=== PATIENT | female | born 1950 | race Two or more races ===

== ENCOUNTER 2017-06-07 10:51 | Inpatient (IN) | payer OTHER, MEDICAID ==
[~2017-06-07] VITALS: Ht 152.4 cm; Wt 65.0 kg
[~2017-06-07 10:51] MED LIST: ASPI81CH43 PO; ATOR40TA52 PO; CAPT25TA5 PO; CETI-41 PO; CITA20TA3 PO; FENO1TAB42 OR; GABA100C9 PO; LEV50T PO; LEVO-28 PO; METF-371 PO; PANT1INJ3 PO; SITA50TA PO; TRAM50TA2 PO
[2017-06-07] MEDS ORDERED: SODIUM CHLORIDE 0.9% 1,000 ML IV ONE (11:15)
[2017-06-07 11:36] LABS: Basophils # (auto) 0.1 uL; Eosinophils # (auto) 0.1 uL; Eosinophils % (auto) 0.7 % (0.0-7.0); Hematocrit 42.6 % (36.0-46.0); Lymphocytes # (auto) 2.4 uL; Lymphocytes % (auto) 31.2 % (10.0-50.0); Mean Corpuscular Hemoglobin 31.5 pg (28.0-32.0); Mean Corpuscular Hgb Conc. 32.9 g/dL (32.0-36.0); Mean Corpuscular Volume 95.7 fL (80.0-100.0); Monocytes # (auto) 0.7 uL; Monocytes % (auto) 9.7 % (0.0-12.0); Neutrophils # (auto) 4.3 uL; Neutrophils % (auto) 57.4 % (37.0-80.0); Nucleated Red Blood Cells % 0.1 %; Platelet Count (auto) 312 10^3/uL (140-450); Red Blood Cells 4.45 10^6/uL (4.0-5.20); Red Cell Distribution Width 14.6 % (11.8-14.3); White Blood Cell 7.6 10^3/uL (4.4-10.8)
[2017-06-07] MEDS ORDERED: LABETALOL HCL 5 MG/ML ML 20ML VIAL IV ONE (12:00)
[2017-06-07 12:01] LABS: Albumin 3.7 g/dL (3.4-5.0); BUN/Creatinine Ratio 18.8; Bilirubin, Total 0.6 mg/dL (0.2-1.0); Calcium 10.8 mg/dL (8.5-10.1); Potassium 3.4 mmol/L (3.5-5.1); Total Protein 7.6 g/dL (6.4-8.2)
[2017-06-07 12:14] LABS: INR 1.01 (0.9-1.15); Partial Thromboplastin Time 23.1 sec (22.64-33.71)
[2017-06-07] MEDS ORDERED: DEXTROSE (50%) 50ML SYRG IV PRN (13:15)
[2017-06-07] MEDS ORDERED: NITROGLYCERIN 0.4 MG SL TAB SL PRN (13:15)
[2017-06-07] MEDS ORDERED: ACETAMINOPHEN 500 MG TAB PO PRN (13:15)
[2017-06-07] MEDS ORDERED: PROMETHAZINE HCL 25 MG/ML 1ML IV PRN (13:15)
[2017-06-07] MEDS ORDERED: LABETALOL HCL 5 MG/ML ML 20ML VIAL IV PRN (13:15)
[2017-06-07] MEDS ORDERED: TEMAZEPAM 15 MG CAP PO PRN (13:15)
[2017-06-07] MEDS ORDERED: MORPHINE SULFATE 4 MG/ML SYR/VIAL IV PRN (13:15)
[2017-06-07] MEDS ORDERED: LACTULOSE 20Gm/30ML SOLN PO PRN (13:15)
[2017-06-07] MEDS ORDERED: LORazepam 0.5 MG TAB PO PRN (13:15)
[2017-06-07] MEDS ORDERED: ENOXAPARIN SOD 40 MG/0.4 ML SYRINGE SC ONE (13:30)
[2017-06-07] MEDS ORDERED: LEVOTHYROXINE SODIUM 50 MCG TAB PO ONE (13:30)
[2017-06-07] MEDS ORDERED: CAPTOPRIL 25 MG TAB PO ONE (13:30)
[2017-06-07] MEDS ORDERED: ASPirin 81 mg TAB PO ONE (13:30)
[2017-06-07] MEDS ORDERED: CITALOPRAM HYDROBR 20 MG TAB PO ONE (13:30)
[2017-06-07] MEDS: GABAPENTIN 100 MG CAP PO SCH ×2 (13:59→21:21)
[2017-06-07 16:50] LABS: Alcohol, Urine < 3.0 mg/dL (0-5); Amphetamine Screen, Urine NEGATIVE (NEGATIVE); Barbiturate Scree,Urine NEGATIVE (NEGATIVE); Benzodiazephine Screen, Urine NEGATIVE (NEGATIVE); Cannabinoid Screen, Urine NEGATIVE (NEGATIVE); Cocaine Screen, Urine NEGATIVE (NEGATIVE); Opiate Scree,Urine NEGATIVE (NEGATIVE); Phencyclidine Screen, Urine NEGATIVE (NEGATIVE)
[2017-06-07] MEDS: InsuLIN REG 1unit/0.01ml Soln (100units/ml) SC SCH ×2 (17:00→21:46)
[2017-06-07 17:02] LABS: Urine Bacteria FEW /hpf (None Seen); Urine Blood Negative /uL (Negative); Urine Mucus FEW (None Seen); Urine Specific Gravity 1.019 (1.001-1.035); Urine WBC 3 /hpf (0 - 5)
[2017-06-07] MEDS: ACCU-CHEK COMFORT CURVE STRIP VI SCH ×2 (17:14→21:21)
[2017-06-07] MEDS ORDERED: POTASSIUM CHL 20 Meq TABLET PO ONE (18:45)
[2017-06-07] MEDS ORDERED: LORazepam 2MG/ML-1ML VIAL IV PRN (19:00)
[2017-06-07 20:15] LABS: Folate (Folic Acid) 22.14 ng/mL (5.38-24)
[2017-06-07] MEDS: CAPTOPRIL 25 MG TAB PO SCH (21:20)
[2017-06-07] MEDS: ATORVASTATIN 20 MG TAB PO SCH (21:21)
[2017-06-07 21:54] VITALS: BP 124/81
[2017-06-08 05:25] VITALS: BP 121/85
[2017-06-08] MEDS: LEVOTHYROXINE SODIUM 25 MCG TAB PO SCH (05:49)
[2017-06-08] MEDS: ACCU-CHEK COMFORT CURVE STRIP VI SCH ×4 (05:49→21:57)
[2017-06-08] MEDS: GABAPENTIN 100 MG CAP PO SCH ×3 (05:49→21:56)
[2017-06-08] MEDS: InsuLIN REG 1unit/0.01ml Soln (100units/ml) SC SCH ×4 (06:30→21:56)
[2017-06-08 07:20] LABS: Cholesterol 246 mg/dL (< 200); HDL Cholesterol 46 mg/dL (40-59); LDL Cholesterol 161 mg/dL (< 100); Triglycerides 153 mg/dL (< 150)
[2017-06-08] MEDS: MORPHINE SULFATE 4 MG/ML SYR/VIAL IV PRN ×2 (07:40→12:10)
[2017-06-08 09:00] VITALS: BP 134/74
[2017-06-08] MEDS: traMADol HCL 50 MG TAB PO PRN ×2 (09:53→16:22)
[2017-06-08] MEDS: ASPirin 81 mg TAB PO SCH (09:53)
[2017-06-08] MEDS: ENOXAPARIN SOD 40 MG/0.4 ML SYRINGE SC SCH (09:53)
[2017-06-08] MEDS: CITALOPRAM HYDROBR 20 MG TAB PO SCH (09:53)
[2017-06-08] MEDS: TRICOR OR SCH (10:00)
[2017-06-08 13:00] VITALS: BP 130/60
[2017-06-08] MEDS: CLOPIDOGREL BISULFATE 75 MG TAB PO SCH (16:18)
[2017-06-08] MEDS: CAPTOPRIL 25 MG TAB PO SCH ×2 (16:20→21:55)
[2017-06-08 17:09] VITALS: BP 135/66
[2017-06-08 20:00] VITALS: BP 130/64
[2017-06-08] MEDS: ATORVASTATIN 20 MG TAB PO SCH (21:56)
[2017-06-08 22:00] VITALS: BP 130/64
[2017-06-09 05:34] VITALS: BP 127/55
[2017-06-09] MEDS: LEVOTHYROXINE SODIUM 25 MCG TAB PO SCH (06:10)
[2017-06-09] MEDS: GABAPENTIN 100 MG CAP PO SCH ×2 (06:11→14:12)
[2017-06-09] MEDS: ACCU-CHEK COMFORT CURVE STRIP VI SCH ×2 (06:12→11:34)
[2017-06-09] MEDS: InsuLIN REG 1unit/0.01ml Soln (100units/ml) SC SCH ×2 (06:25→12:06)
[2017-06-09 08:20] VITALS: BP 145/78
[2017-06-09] MEDS: TRICOR OR SCH (10:00)
[2017-06-09] MEDS: CLOPIDOGREL BISULFATE 75 MG TAB PO SCH (10:11)
[2017-06-09] MEDS: ENOXAPARIN SOD 40 MG/0.4 ML SYRINGE SC SCH (10:11)
[2017-06-09] MEDS: ASPirin 81 mg TAB PO SCH (10:11)
[2017-06-09] MEDS: CITALOPRAM HYDROBR 20 MG TAB PO SCH (10:11)
[2017-06-09] MEDS: CAPTOPRIL 25 MG TAB PO SCH (10:12)
[2017-06-09 11:58] VITALS: BP 142/93
[2017-06-09 16:29] VITALS: BP 186/70
== END 2017-06-09 17:27 | disposition home health service (06) | DRG 64 ==
LOC: ER 10:51 → TELE 10:52 → TELE-EAST 18:38
PROVIDERS: ADMIT Internal Medicine; ATTEND Internal Medicine Pulmonary Disease
DX: I63.9 Cerebral infarction, unspecified (principal); G93.41 Metabolic encephalopathy; I69.351 Hemiplegia and hemiparesis following cerebral infarction affecting right dominant side; I11.0 Hypertensive heart disease with heart failure; I50.9 Heart failure, unspecified; G45.9 Transient cerebral ischemic attack, unspecified; I16.1 Hypertensive emergency; E87.6 Hypokalemia; E03.9 Hypothyroidism, unspecified; E11.9 Type 2 diabetes mellitus without complications; E78.5 Hyperlipidemia, unspecified; I25.10 Atherosclerotic heart disease of native coronary artery without angina pectoris; I67.2 Cerebral atherosclerosis; I08.0 Rheumatic disorders of both mitral and aortic valves; R32 Unspecified urinary incontinence; Z79.82 Long term (current) use of aspirin; Z79.899 Other long term (current) drug therapy; Z82.49 Family history of ischemic heart disease and other diseases of the circulatory system; Z95.1 Presence of aortocoronary bypass graft; Z90.49 Acquired absence of other specified parts of digestive tract; Z80.9 Family history of malignant neoplasm, unspecified
CPT/HCPCS: 36415; 70450; 70551; 71045; 80053; 80061; 80307; 81001; 82550; 82607; 82746; 82962; 83036; 84443; 84484; 85025; 85610; 85652; 85730; 93306; 93886; 95819; 96361; 96374; 97163; J1815

== ENCOUNTER 2020-08-27 10:38 | Emergency (ER) | payer OTHER, MEDICAID ==
[~2020-08-27] VITALS: Ht 162.6 cm; Wt 77.1 kg
[~2020-08-27 10:38] MED LIST changes: +FENO145T27 OR; -FENO1TAB42 OR
[2020-08-27 11:12] LABS: Basophils # (auto) 0 10 ^3/uL (0-0.2); Basophils % (auto) 0.5 % (0.0-2.0); Eosinophils # (auto) 0.1 10 ^3/uL (0-0.8); Eosinophils % (auto) 1.4 % (0.0-7.0); Hematocrit 43.3 % (36.0-46.0); Hemoglobin 14.5 g/dL (12.2-16.2); Lymphocytes # (auto) 2.1 10 ^3/uL (0.4-5.4); Lymphocytes % (auto) 35.8 % (10.0-50.0); Mean Corpuscular Hemoglobin 33.5 pg (28.0-32.0); Mean Corpuscular Hgb Conc. 33.6 g/dL (32.0-36.0); Mean Corpuscular Volume 99.7 fL (80.0-100.0); Monocytes # (auto) 0.6 10 ^3/uL (0-1.3); Monocytes % (auto) 9.9 % (0.0-12.0); Neutrophils # (auto) 3.1 10 ^3/uL (1.6-8.6); Neutrophils % (auto) 52.4 % (37.0-80.0); Platelet Count (auto) 254 10^3/uL (140-450); Red Blood Cells 4.35 10^6/uL (4.0-5.20); Red Cell Distribution Width 13.7 % (11.8-14.3)
[2020-08-27 11:30] LABS: Alanine Aminotransferase 70 U/L (13-56); Albumin 3.3 g/dL (3.4-5.0); Anion Gap 5 (5-15); Blood Urea Nitrogen 28 mg/dL (7-18); Calcium 10.1 mg/dL (8.5-10.1); Carbon Dioxide 28 mmol/L (21-32); Chloride 105 mmol/L (98-107); Glucose 250 mg/dL (74-106); Magnesium 1.8 mg/dL (1.6-2.6); Potassium 4.2 mmol/L (3.5-5.1); Sodium 138 mmol/L (136-145)
[2020-08-27 11:36] LABS: Alkaline Phosphatase 71 U/L (45-117); Aspartate Aminotransferase 61 U/L (15-37); BUN/Creatinine Ratio 30.4; Bilirubin, Total 0.3 mg/dL (0.2-1.0); GFR African American 78 mL/min; GFR Non-African American 64 mL/min; Total Protein 6.5 g/dL (6.4-8.2)
[2020-08-27 13:16] LABS: Urine Blood 2+ /uL (Negative); Urine Mucus FEW (None Seen); Urine Specific Gravity 1.017 (1.001-1.035); Urine WBC 3370 /hpf (0 - 5); Urine WBC Clumps PRESENT /hpf (None Seen)
[2020-08-27 13:18] LABS: Urine Bacteria FEW /hpf (None Seen); Urine Budding Yeast Few /hpf (None Seen)
[2020-08-27] MEDS ORDERED: cefTRIAXone 1GM/50ML D5W 50 ML IV ONE (14:00)
[2020-08-27 14:32] VITALS: BP 145/82
== END 2020-08-27 16:12 | disposition home or self-care (01) ==
LOC: EDBD 10:38 → ER 10:38
DX: R53.1 Weakness (principal); N39.0 Urinary tract infection, site not specified; E46 Unspecified protein-calorie malnutrition; Z68.29 Body mass index [BMI] 29.0-29.9, adult; I10 Essential (primary) hypertension; I25.10 Atherosclerotic heart disease of native coronary artery without angina pectoris; E11.9 Type 2 diabetes mellitus without complications; E78.5 Hyperlipidemia, unspecified; Z86.73 Personal history of transient ischemic attack (TIA), and cerebral infarction without residual deficits; Z90.49 Acquired absence of other specified parts of digestive tract; Z95.1 Presence of aortocoronary bypass graft; Z79.82 Long term (current) use of aspirin; Z79.2 Long term (current) use of antibiotics; Z79.899 Other long term (current) drug therapy
CPT/HCPCS: 36415; 51701; 71045; 80053; 81001; 82962; 83735; 84484; 85025; 87086; 87088; 87186; 96365; 99285; J0696

== ENCOUNTER 2021-05-23 09:38 | Inpatient (IN) | payer OTHER, MEDICAID ==
[~2021-05-23] VITALS: Ht 152.4 cm; Wt 70.6 kg
[2021-05-23] MEDS ORDERED: MORPHINE SULFATE INJECTION 2 MG/ML SYRG IV ONE ×2 (11:30→14:00)
[2021-05-23] MEDS ORDERED: ONDANSETRON HCL 4 MG/2 ML VIAL IV ONE ×2 (11:30→14:00)
[2021-05-23 15:27] LABS: Basophils # (auto) 0.1 10 ^3/uL (0-0.2); Eosinophils # (auto) 0.1 10 ^3/uL (0-0.8); Eosinophils % (auto) 0.8 % (0.0-7.0); Hematocrit 36.8 % (36.0-46.0); Hemoglobin 12.5 g/dL (12.2-16.2); Lymphocytes # (auto) 1.9 10 ^3/uL (0.4-5.4); Lymphocytes % (auto) 27.8 % (10.0-50.0); Mean Corpuscular Hemoglobin 33.1 pg (28.0-32.0); Mean Corpuscular Volume 97.2 fL (80.0-100.0); Monocytes # (auto) 0.7 10 ^3/uL (0-1.3); Monocytes % (auto) 10.8 % (0.0-12.0); Neutrophils # (auto) 4.1 10 ^3/uL (1.6-8.6); Neutrophils % (auto) 59.6 % (37.0-80.0); Nucleated Red Blood Cells % 0.1 %; Red Blood Cells 3.78 10^6/uL (4.0-5.20); Red Cell Distribution Width 14.1 % (11.8-14.3); White Blood Cell 6.9 10^3/uL (4.4-10.8)
[2021-05-23 15:33] LABS: Calcium 9.5 mg/dL (8.5-10.1); Potassium 3.9 mmol/L (3.5-5.1)
[2021-05-23 15:39] LABS: BUN/Creatinine Ratio 32.6; Bilirubin, Total 0.3 mg/dL (0.2-1.0); Total Protein 6.6 g/dL (6.4-8.2)
[2021-05-23 16:06] LABS: Urine Bacteria MANY /hpf (None Seen); Urine Blood TRACE /uL (Negative); Urine Hyaline Cast MOD /lpf (0 - 2); Urine Mucus MODERATE (None Seen); Urine WBC 407 /hpf (0 - 5)
[2021-05-23] MEDS ORDERED: NITROGLYCERIN 0.4 MG SL TAB SL PRN (17:30)
[2021-05-23] MEDS ORDERED: MORPHINE SULFATE INJECTION 2 MG/ML SYRG IV PRN (17:30)
[2021-05-23] MEDS ORDERED: cefTRIAXone 1GM/50ML D5W 50 ML IV ONE ×2 (17:30→17:31)
[2021-05-23] MEDS ORDERED: MULTIPLE VITAMINS W/ MINERALS TAB PO ONE (19:00)
[2021-05-23] MEDS ORDERED: DOCUSATE SOD 100 MG CAP PO PRN (19:00)
[2021-05-23] MEDS ORDERED: LACTULOSE 20Gm/30ML SOLN PO PRN (19:00)
[2021-05-23] MEDS ORDERED: HYDROcodone-ACET 5/325MG TAB PO PRN (19:00)
[2021-05-23] MEDS ORDERED: FAMOTIDINE (10MG/ML) 2ML VL IV ONE (19:00)
[2021-05-23] MEDS ORDERED: ONDANSETRON HCL 4 MG/2 ML VIAL IV PRN (19:00)
[2021-05-23] MEDS ORDERED: LABETALOL HCL 5 MG/ML 4ML SYRINGE IV PRN (19:00)
[2021-05-23] MEDS ORDERED: HYDROcodone-ACET 5/325MG TAB PO ONE (19:00)
[2021-05-23] MEDS ORDERED: MORPHINE SULFATE 4 MG/ML SYR/VIAL ONE (19:59)
[2021-05-23 20:07] LABS: Magnesium 1.9 mg/dL (1.6-2.6); Phosphorus 3.4 mg/dL (2.5-4.90)
[2021-05-23] MEDS: MORPHINE SULFATE INJECTION 2 MG/ML SYRG IV PRN (20:09)
[2021-05-23] MEDS ORDERED: ATORVASTATIN 20 MG TAB PO SCH (22:00)
[2021-05-23 22:52] LABS: INR 0.99 (0.9-1.15); Partial Thromboplastin Time 23.3 sec (23.6-33.0)
[2021-05-23] MEDS: HYDROcodone-ACET 5/325MG TAB PO PRN (23:27)
[2021-05-24] MEDS ORDERED: DEXTROSE (50%) 50ML SYRG IV PRN (03:45)
[2021-05-24] MEDS ORDERED: ALBUTEROL SULF HFA 90MCG INH 200DOSE IN PRN (03:45)
[2021-05-24] MEDS ORDERED: ALBUMIN 25% 100 ML IV ONE (03:45)
[2021-05-24] MEDS ORDERED: ACETAMINOPHEN 500 MG TAB PO PRN (03:45)
[2021-05-24] MEDS ORDERED: METOPROLOL SUCCINATE XL 50 MG TAB PO ONE (03:45)
[2021-05-24] MEDS ORDERED: IOHEXOL 350 MG/ML 100ML IJ ONE (03:48)
[2021-05-24] MEDS ORDERED: MORPHINE SULFATE 4 MG/ML SYR/VIAL ONE (04:28)
[2021-05-24] MEDS: MORPHINE SULFATE INJECTION 2 MG/ML SYRG IV PRN (04:36)
[2021-05-24] MEDS ORDERED: FUROSEMIDE 20 MG/2 ML VIAL IV SCH (06:00)
[2021-05-24 07:26] LABS: Calcium 9.2 mg/dL (8.5-10.1); Potassium 4.6 mmol/L (3.5-5.1)
[2021-05-24 07:41] LABS: Thyroid Stimulating Hormone 2.88 uIU/mL (0.358-3.74)
[2021-05-24 07:43] LABS: Basophils # (auto) 0 10 ^3/uL (0-0.2); Basophils % (auto) 0.6 % (0.0-2.0); Eosinophils # (auto) 0 10 ^3/uL (0-0.8); Eosinophils % (auto) 0.5 % (0.0-7.0); Hematocrit 37.7 % (36.0-46.0); Hemoglobin 12.6 g/dL (12.2-16.2); Lymphocytes # (auto) 1.4 10 ^3/uL (0.4-5.4); Lymphocytes % (auto) 18.9 % (10.0-50.0); Mean Corpuscular Hemoglobin 32.9 pg (28.0-32.0); Mean Corpuscular Hgb Conc. 33.5 g/dL (32.0-36.0); Mean Corpuscular Volume 98.5 fL (80.0-100.0); Monocytes # (auto) 0.7 10 ^3/uL (0-1.3); Monocytes % (auto) 8.9 % (0.0-12.0); Neutrophils # (auto) 5.2 10 ^3/uL (1.6-8.6); Neutrophils % (auto) 71.1 % (37.0-80.0); Nucleated Red Blood Cells % 0.1 %; Red Blood Cells 3.83 10^6/uL (4.0-5.20); Red Cell Distribution Width 14.7 % (11.8-14.3); White Blood Cell 7.3 10^3/uL (4.4-10.8)
[2021-05-24] MEDS: ACCU-CHEK COMFORT CURVE STRIP VI SCH ×4 (07:49→22:16)
[2021-05-24 07:55] LABS: Albumin 2.9 g/dL (3.4-5.0); BUN/Creatinine Ratio 27.7; Bilirubin, Total 0.4 mg/dL (0.2-1.0); CRP High Sensitivity 3.43 mg/dL (< 0.3); Total Protein 6.7 g/dL (6.4-8.2); Uric Acid 4.9 mg/dL (2.6-6.0)
[2021-05-24] MEDS: InsuLIN REG 1unit/0.01ml Soln (100units/ml) SC SCH ×4 (07:55→22:31)
[2021-05-24] MEDS: LEVOTHYROXINE SODIUM 25 MCG TAB PO SCH (07:55)
[2021-05-24 08:05] LABS: INR 0.99 (0.9-1.15); Partial Thromboplastin Time 25.1 sec (23.6-33.0)
[2021-05-24 09:49] VITALS: BP 167/89
[2021-05-24] MEDS ORDERED: ENOXAPARIN SOD 40 MG/0.4 ML SYRINGE SC SCH (10:00)
[2021-05-24] MEDS ORDERED: BUDESONIDE (INHALATION) 180 MCG IH IN SCH (10:00)
[2021-05-24 10:18] VITALS: BP 167/89
[2021-05-24] MEDS: ZINC SULFATE 220mg CAP or TAB PO SCH (10:50)
[2021-05-24] MEDS: DexAMETHasone SOD PHOS 10MG/1ML VIAL INJ IV SCH (10:50)
[2021-05-24] MEDS: CHOLECALCIFEROL (VITD3) 2,000 UNIT CAP/TAB PO SCH (10:50)
[2021-05-24] MEDS: DOXYCYCLINE 100MG/250ML 250 ML IV SCH ×2 (10:50→22:15)
[2021-05-24] MEDS: CITALOPRAM HYDROBR 20 MG TAB PO SCH (10:50)
[2021-05-24] MEDS: MULTIPLE VITAMINS W/ MINERALS TAB PO SCH (10:50)
[2021-05-24] MEDS: HYDROcodone-ACET 5/325MG TAB PO PRN ×2 (10:50→18:29)
[2021-05-24] MEDS: METOPROLOL SUCCINATE XL 50 MG TAB PO SCH (10:50)
[2021-05-24] MEDS: ASPirin 81 mg TAB PO SCH (10:50)
[2021-05-24] MEDS: cefTRIAXone 1GM/50ML D5W 50 ML IV SCH (10:50)
[2021-05-24] MEDS: ASCORBIC ACID 1,000 MG TAB PO SCH (10:50)
[2021-05-24] MEDS: FAMOTIDINE (10MG/ML) 2ML VL IV SCH (10:50)
[2021-05-24] MEDS: BENAZEPRIL HCL 10 MG TAB PO SCH (10:50)
[2021-05-24] MEDS: ENOXAPARIN SOD 40 MG/0.4 ML SYRINGE SC SCH ×2 (10:50→22:16)
[2021-05-24] MEDS ORDERED: REMDESIVIR PER PHARMACY 0 ML IV SCH (11:30)
[2021-05-24 12:26] VITALS: BP 155/71
[2021-05-24] MEDS: HYDROmorphone HCL 2 MG/ML VL IV PRN ×2 (12:55→22:20)
[2021-05-24] MEDS: hydrALAZINE HCL 20 MG/ML VL IV PRN (12:56)
[2021-05-24] MEDS ORDERED: LABETALOL HCL 5 MG/ML ML 20ML VIAL IV PRN (13:00)
[2021-05-24 13:52] LABS: Urine Bacteria FEW /hpf (None Seen); Urine Blood 1+ /uL (Negative); Urine Hyaline Cast FEW /lpf (0 - 2); Urine Mucus FEW (None Seen); Urine Specific Gravity 1.031 (1.001-1.035); Urine WBC 608 /hpf (0 - 5)
[2021-05-24] MEDS ORDERED: LISI40TA11 PO (16:32)
[2021-05-24] MEDS ORDERED: INSUINJ18 SC (16:32)
[2021-05-24] MEDS ORDERED: DULO60CA PO (16:32)
[2021-05-24] MEDS ORDERED: ASPI-463 OR (16:32)
[2021-05-24] MEDS ORDERED: METO-289 PO (16:32)
[2021-05-24] MEDS ORDERED: LEVO75TA6 PO (16:32)
[2021-05-24] MEDS ORDERED: ROSU20TA14 PO (16:32)
[2021-05-24] MEDS ORDERED: PIO30T PO (16:32)
[2021-05-24] MEDS: BUDESONIDE (INHALATION) 180 MCG IH IN SCH (20:19)
[2021-05-24 22:00] VITALS: BP 135/73
[2021-05-24] MEDS: ATORVASTATIN 20 MG TAB PO SCH (22:15)
[2021-05-25] MEDS: HYDROcodone-ACET 5/325MG TAB PO PRN ×3 (02:27→20:06)
[2021-05-25 05:21] VITALS: BP 153/75
[2021-05-25] MEDS: InsuLIN REG 1unit/0.01ml Soln (100units/ml) SC SCH ×4 (06:12→21:58)
[2021-05-25] MEDS: ACCU-CHEK COMFORT CURVE STRIP VI SCH ×4 (06:16→21:59)
[2021-05-25] MEDS: LEVOTHYROXINE SODIUM 25 MCG TAB PO SCH (06:16)
[2021-05-25] MEDS: ALBUTEROL SULF HFA 90MCG INH 200DOSE IN PRN ×2 (07:48→19:25)
[2021-05-25] MEDS: BUDESONIDE (INHALATION) 180 MCG IH IN SCH ×2 (07:48→19:25)
[2021-05-25 09:00] VITALS: BP 162/83
[2021-05-25] MEDS: cefTRIAXone 1GM/50ML D5W 50 ML IV SCH (10:10)
[2021-05-25] MEDS: ASCORBIC ACID 1,000 MG TAB PO SCH (10:11)
[2021-05-25] MEDS: ZINC SULFATE 220mg CAP or TAB PO SCH (10:11)
[2021-05-25] MEDS: METOPROLOL SUCCINATE XL 50 MG TAB PO SCH (10:12)
[2021-05-25] MEDS: CHOLECALCIFEROL (VITD3) 2,000 UNIT CAP/TAB PO SCH (10:13)
[2021-05-25] MEDS: ASPirin 81 mg TAB PO SCH (10:13)
[2021-05-25] MEDS: CITALOPRAM HYDROBR 20 MG TAB PO SCH (10:14)
[2021-05-25] MEDS: BENAZEPRIL HCL 10 MG TAB PO SCH (10:14)
[2021-05-25] MEDS: ENOXAPARIN SOD 40 MG/0.4 ML SYRINGE SC SCH ×2 (10:15→21:58)
[2021-05-25] MEDS: MULTIPLE VITAMINS W/ MINERALS TAB PO SCH (10:15)
[2021-05-25] MEDS: DexAMETHasone SOD PHOS 10MG/1ML VIAL INJ IV SCH (10:16)
[2021-05-25] MEDS: FAMOTIDINE (10MG/ML) 2ML VL IV SCH (10:16)
[2021-05-25] MEDS: DOXYCYCLINE 100MG/250ML 250 ML IV SCH ×2 (10:17→21:59)
[2021-05-25 10:20] LABS: Basophils # (auto) 0 10 ^3/uL (0-0.2); Basophils % (auto) 0.2 % (0.0-2.0); Eosinophils # (auto) 0 10 ^3/uL (0-0.8); Eosinophils % (auto) 0.2 % (0.0-7.0); Hemoglobin 12.5 g/dL (12.2-16.2); Lymphocytes # (auto) 1.2 10 ^3/uL (0.4-5.4); Lymphocytes % (auto) 16.2 % (10.0-50.0); Mean Corpuscular Hemoglobin 32.4 pg (28.0-32.0); Mean Corpuscular Hgb Conc. 32.9 g/dL (32.0-36.0); Mean Corpuscular Volume 98.3 fL (80.0-100.0); Monocytes # (auto) 0.7 10 ^3/uL (0-1.3); Neutrophils # (auto) 5.7 10 ^3/uL (1.6-8.6); Neutrophils % (auto) 74.4 % (37.0-80.0); Red Blood Cells 3.87 10^6/uL (4.0-5.20); Red Cell Distribution Width 14.9 % (11.8-14.3); White Blood Cell 7.6 10^3/uL (4.4-10.8)
[2021-05-25 10:30] LABS: Potassium 3.8 mmol/L (3.5-5.1)
[2021-05-25 10:36] LABS: Albumin 2.9 g/dL (3.4-5.0); BUN/Creatinine Ratio 26.3; Bilirubin, Total 0.4 mg/dL (0.2-1.0); Calcium 9.6 mg/dL (8.5-10.1); Total Protein 6.6 g/dL (6.4-8.2)
[2021-05-25 13:00] VITALS: BP 145/77
[2021-05-25] MEDS ORDERED: SODIUM CHLORIDE 0.9% 1,000 ML IV ONE (14:30)
[2021-05-25] MEDS ORDERED: amLODIPine BESYLATE 5 MG TAB PO ONE (14:45)
[2021-05-25 17:00] VITALS: BP 153/82
[2021-05-25 21:51] VITALS: BP 149/84
[2021-05-25] MEDS: ATORVASTATIN 20 MG TAB PO SCH (21:59)
[2021-05-26 05:00] VITALS: BP 142/67
[2021-05-26] MEDS: ACCU-CHEK COMFORT CURVE STRIP VI SCH ×4 (05:58→21:47)
[2021-05-26] MEDS: InsuLIN REG 1unit/0.01ml Soln (100units/ml) SC SCH ×4 (06:07→22:08)
[2021-05-26] MEDS: LEVOTHYROXINE SODIUM 25 MCG TAB PO SCH (06:09)
[2021-05-26 06:27] LABS: BUN/Creatinine Ratio 38.4; Calcium 9.5 mg/dL (8.5-10.1); Potassium 4.5 mmol/L (3.5-5.1)
[2021-05-26] MEDS: ALBUTEROL SULF HFA 90MCG INH 200DOSE IN PRN ×2 (07:10→20:11)
[2021-05-26] MEDS: BUDESONIDE (INHALATION) 180 MCG IH IN SCH ×2 (07:10→20:10)
[2021-05-26 08:00] VITALS: BP 130/92
[2021-05-26] MEDS: cefTRIAXone 1GM/50ML D5W 50 ML IV SCH (09:33)
[2021-05-26] MEDS: ENOXAPARIN SOD 40 MG/0.4 ML SYRINGE SC SCH ×2 (09:34→22:07)
[2021-05-26] MEDS: ASPirin 81 mg TAB PO SCH (09:35)
[2021-05-26] MEDS: METOPROLOL SUCCINATE XL 50 MG TAB PO SCH (09:35)
[2021-05-26] MEDS: CITALOPRAM HYDROBR 20 MG TAB PO SCH (09:35)
[2021-05-26] MEDS: amLODIPine BESYLATE 5 MG TAB PO SCH (09:36)
[2021-05-26] MEDS: CHOLECALCIFEROL (VITD3) 2,000 UNIT CAP/TAB PO SCH (09:37)
[2021-05-26] MEDS: MULTIPLE VITAMINS W/ MINERALS TAB PO SCH (09:42)
[2021-05-26] MEDS: DOXYCYCLINE 100MG/250ML 250 ML IV SCH (11:29)
[2021-05-26 12:00] VITALS: BP 119/63
[2021-05-26 16:00] VITALS: BP 123/60
[2021-05-26] MEDS: HYDROcodone-ACET 5/325MG TAB PO PRN (20:34)
[2021-05-26 21:19] VITALS: BP 114/58
[2021-05-26] MEDS: DOXYCYCLINE 100 MG TAB/CAP PO SCH (22:07)
[2021-05-26] MEDS: ATORVASTATIN 20 MG TAB PO SCH (22:07)
[2021-05-27 04:11] VITALS: BP 107/63
[2021-05-27] MEDS: ACCU-CHEK COMFORT CURVE STRIP VI SCH ×4 (06:04→22:30)
[2021-05-27] MEDS: InsuLIN REG 1unit/0.01ml Soln (100units/ml) SC SCH ×4 (06:06→22:31)
[2021-05-27] MEDS: LEVOTHYROXINE SODIUM 25 MCG TAB PO SCH (06:07)
[2021-05-27] MEDS: BUDESONIDE (INHALATION) 180 MCG IH IN SCH ×2 (06:40→22:00)
[2021-05-27 09:00] VITALS: BP 123/78
[2021-05-27] MEDS: MULTIPLE VITAMINS W/ MINERALS TAB PO SCH (09:47)
[2021-05-27] MEDS: cefTRIAXone 1GM/50ML D5W 50 ML IV SCH (09:47)
[2021-05-27] MEDS: ASPirin 81 mg TAB PO SCH (09:47)
[2021-05-27] MEDS: CHOLECALCIFEROL (VITD3) 2,000 UNIT CAP/TAB PO SCH (09:48)
[2021-05-27] MEDS: DOXYCYCLINE 100 MG TAB/CAP PO SCH ×2 (09:48→22:05)
[2021-05-27] MEDS: CITALOPRAM HYDROBR 20 MG TAB PO SCH (09:48)
[2021-05-27] MEDS: ENOXAPARIN SOD 40 MG/0.4 ML SYRINGE SC SCH ×2 (09:49→22:06)
[2021-05-27] MEDS: amLODIPine BESYLATE 5 MG TAB PO SCH (09:49)
[2021-05-27] MEDS: METOPROLOL SUCCINATE XL 50 MG TAB PO SCH (09:58)
[2021-05-27] MEDS: HYDROmorphone HCL 2 MG/ML VL IV PRN ×2 (10:12→20:17)
[2021-05-27] MEDS: HYDROcodone-ACET 5/325MG TAB PO PRN ×2 (15:29→22:19)
[2021-05-27 22:00] VITALS: BP 144/93
[2021-05-27] MEDS: ATORVASTATIN 20 MG TAB PO SCH (22:05)
[2021-05-28] MEDS: HYDROmorphone HCL 2 MG/ML VL IV PRN ×4 (00:44→20:56)
[2021-05-28 05:00] VITALS: BP 105/69
[2021-05-28] MEDS: HYDROcodone-ACET 5/325MG TAB PO PRN (06:07)
[2021-05-28] MEDS: LEVOTHYROXINE SODIUM 25 MCG TAB PO SCH (06:08)
[2021-05-28] MEDS: ACCU-CHEK COMFORT CURVE STRIP VI SCH ×4 (06:08→22:05)
[2021-05-28] MEDS: InsuLIN REG 1unit/0.01ml Soln (100units/ml) SC SCH ×4 (06:50→22:08)
[2021-05-28 08:49] VITALS: BP 151/88
[2021-05-28] MEDS: cefTRIAXone 1GM/50ML D5W 50 ML IV SCH (09:30)
[2021-05-28] MEDS: ASPirin 81 mg TAB PO SCH (10:30)
[2021-05-28] MEDS: CITALOPRAM HYDROBR 20 MG TAB PO SCH (10:30)
[2021-05-28] MEDS: DOXYCYCLINE 100 MG TAB/CAP PO SCH (10:30)
[2021-05-28] MEDS: CHOLECALCIFEROL (VITD3) 2,000 UNIT CAP/TAB PO SCH (10:30)
[2021-05-28] MEDS: amLODIPine BESYLATE 5 MG TAB PO SCH (10:30)
[2021-05-28] MEDS: METOPROLOL SUCCINATE XL 50 MG TAB PO SCH (10:30)
[2021-05-28] MEDS: MULTIPLE VITAMINS W/ MINERALS TAB PO SCH (10:30)
[2021-05-28] MEDS: ENOXAPARIN SOD 40 MG/0.4 ML SYRINGE SC SCH ×2 (10:30→22:05)
[2021-05-28 12:49] VITALS: BP 158/67
[2021-05-28 16:25] VITALS: BP 119/59
[2021-05-28 20:00] VITALS: BP 142/60
[2021-05-28 22:00] VITALS: BP 142/60
[2021-05-28] MEDS: ATORVASTATIN 20 MG TAB PO SCH (22:05)
[2021-05-29] VITALS (8 sets, daily range): BP systolic 128–183; BP diastolic 69–88
[2021-05-29] MEDS: HYDROmorphone HCL 2 MG/ML VL IV PRN ×2 (02:18→09:30)
[2021-05-29] MEDS: hydrALAZINE HCL 20 MG/ML VL IV PRN (04:13)
[2021-05-29 06:11] LABS: Albumin 2.9 g/dL (3.4-5.0); Calcium 9.6 mg/dL (8.5-10.1); Potassium 4.7 mmol/L (3.5-5.1)
[2021-05-29 06:15] LABS: BUN/Creatinine Ratio 46.8; Bilirubin, Total 0.4 mg/dL (0.2-1.0); Total Protein 6.3 g/dL (6.4-8.2)
[2021-05-29 06:19] LABS: Basophils # (auto) 0 10 ^3/uL (0-0.2); Basophils % (auto) 0.2 % (0.0-2.0); Eosinophils # (auto) 0.1 10 ^3/uL (0-0.8); Eosinophils % (auto) 1.3 % (0.0-7.0); Hemoglobin 12.2 g/dL (12.2-16.2); Lymphocytes # (auto) 1.4 10 ^3/uL (0.4-5.4); Mean Corpuscular Hemoglobin 33.2 pg (28.0-32.0); Mean Corpuscular Hgb Conc. 33.9 g/dL (32.0-36.0); Monocytes # (auto) 0.7 10 ^3/uL (0-1.3); Monocytes % (auto) 10.3 % (0.0-12.0); Neutrophils # (auto) 4.6 10 ^3/uL (1.6-8.6); Neutrophils % (auto) 68.2 % (37.0-80.0); Red Blood Cells 3.67 10^6/uL (4.0-5.20); Red Cell Distribution Width 14.8 % (11.8-14.3); White Blood Cell 6.8 10^3/uL (4.4-10.8)
[2021-05-29] MEDS: ACCU-CHEK COMFORT CURVE STRIP VI SCH ×4 (06:40→21:46)
[2021-05-29] MEDS: LEVOTHYROXINE SODIUM 25 MCG TAB PO SCH (06:40)
[2021-05-29] MEDS: InsuLIN REG 1unit/0.01ml Soln (100units/ml) SC SCH ×4 (06:48→21:48)
[2021-05-29] MEDS: MULTIPLE VITAMINS W/ MINERALS TAB PO SCH (09:26)
[2021-05-29] MEDS: ASPirin 81 mg TAB PO SCH (09:26)
[2021-05-29] MEDS: CITALOPRAM HYDROBR 20 MG TAB PO SCH (09:26)
[2021-05-29] MEDS: cefTRIAXone 1GM/50ML D5W 50 ML IV SCH (09:26)
[2021-05-29] MEDS: METOPROLOL SUCCINATE XL 50 MG TAB PO SCH (09:27)
[2021-05-29] MEDS: amLODIPine BESYLATE 5 MG TAB PO SCH (09:27)
[2021-05-29] MEDS: CHOLECALCIFEROL (VITD3) 2,000 UNIT CAP/TAB PO SCH (09:27)
[2021-05-29] MEDS: ENOXAPARIN SOD 40 MG/0.4 ML SYRINGE SC SCH ×2 (09:28→21:46)
[2021-05-29] MEDS: HYDROcodone-ACET 5/325MG TAB PO PRN ×2 (15:45→22:41)
[2021-05-29] MEDS ORDERED: ACETAMINOPHEN 325 MG TAB PO PRN (21:00)
[2021-05-29] MEDS: ATORVASTATIN 20 MG TAB PO SCH (21:46)
[2021-05-30] MEDS: HYDROmorphone HCL 2 MG/ML VL IV PRN (01:46)
[2021-05-30 04:40] VITALS: BP 136/69
[2021-05-30 06:09] LABS: Basophils # (auto) 0.1 10 ^3/uL (0-0.2); Basophils % (auto) 0.8 % (0.0-2.0); Eosinophils # (auto) 0.1 10 ^3/uL (0-0.8); Eosinophils % (auto) 1.1 % (0.0-7.0); Hematocrit 34.9 % (36.0-46.0); Hemoglobin 11.9 g/dL (12.2-16.2); Lymphocytes # (auto) 1.9 10 ^3/uL (0.4-5.4); Lymphocytes % (auto) 26.6 % (10.0-50.0); Mean Corpuscular Hemoglobin 33.5 pg (28.0-32.0); Mean Corpuscular Hgb Conc. 34.2 g/dL (32.0-36.0); Mean Corpuscular Volume 98.1 fL (80.0-100.0); Monocytes # (auto) 0.7 10 ^3/uL (0-1.3); Monocytes % (auto) 9.3 % (0.0-12.0); Neutrophils # (auto) 4.4 10 ^3/uL (1.6-8.6); Neutrophils % (auto) 62.2 % (37.0-80.0); Nucleated Red Blood Cells % 0.1 %; Red Blood Cells 3.56 10^6/uL (4.0-5.20); Red Cell Distribution Width 14.9 % (11.8-14.3); White Blood Cell 7.1 10^3/uL (4.4-10.8)
[2021-05-30 06:34] LABS: Albumin 2.7 g/dL (3.4-5.0); Calcium 9.2 mg/dL (8.5-10.1); Potassium 4.1 mmol/L (3.5-5.1)
[2021-05-30] MEDS: ACCU-CHEK COMFORT CURVE STRIP VI SCH ×2 (06:36→12:23)
[2021-05-30] MEDS: LEVOTHYROXINE SODIUM 25 MCG TAB PO SCH (06:36)
[2021-05-30 06:37] LABS: BUN/Creatinine Ratio 37.8
[2021-05-30] MEDS: InsuLIN REG 1unit/0.01ml Soln (100units/ml) SC SCH ×2 (06:39→12:21)
[2021-05-30 06:40] LABS: Bilirubin, Total 0.5 mg/dL (0.2-1.0)
[2021-05-30 09:00] VITALS: BP 125/68
[2021-05-30] MEDS: cefTRIAXone 1GM/50ML D5W 50 ML IV SCH (09:40)
[2021-05-30] MEDS: CITALOPRAM HYDROBR 20 MG TAB PO SCH (09:41)
[2021-05-30] MEDS: ASPirin 81 mg TAB PO SCH (09:41)
[2021-05-30] MEDS: MULTIPLE VITAMINS W/ MINERALS TAB PO SCH (09:41)
[2021-05-30] MEDS: amLODIPine BESYLATE 5 MG TAB PO SCH (09:42)
[2021-05-30] MEDS: CHOLECALCIFEROL (VITD3) 2,000 UNIT CAP/TAB PO SCH (09:43)
[2021-05-30] MEDS: METOPROLOL SUCCINATE XL 50 MG TAB PO SCH (09:43)
[2021-05-30] MEDS: ENOXAPARIN SOD 40 MG/0.4 ML SYRINGE SC SCH (09:43)
[2021-05-30] MEDS: HYDROcodone-ACET 5/325MG TAB PO PRN (10:04)
[2021-05-30 13:00] VITALS: BP 132/68
== END 2021-05-30 15:34 | DRG 177 ==
LOC: EDBD 09:38 → ER 09:38 → TELE 17:27 → TELE-EAST 05-24 09:09 → TELE-E-ADS 05-25 00:10 → TELE-WESTW 05-27 12:06
PROVIDERS: ADMIT Hospitalist; ATTEND Internal Medicine Pulmonary Disease
DX: U07.1 COVID-19 (principal); J12.82 Pneumonia due to coronavirus disease 2019; J96.00 Acute respiratory failure, unspecified whether with hypoxia or hypercapnia; N39.0 Urinary tract infection, site not specified; I16.1 Hypertensive emergency; J98.11 Atelectasis; I69.351 Hemiplegia and hemiparesis following cerebral infarction affecting right dominant side; M81.0 Age-related osteoporosis without current pathological fracture; I25.5 Ischemic cardiomyopathy; I25.10 Atherosclerotic heart disease of native coronary artery without angina pectoris; E66.01 Morbid (severe) obesity due to excess calories; I10 Essential (primary) hypertension; E03.9 Hypothyroidism, unspecified; E78.5 Hyperlipidemia, unspecified; E11.9 Type 2 diabetes mellitus without complications; F03.90 Unspecified dementia, unspecified severity, without behavioral disturbance, psychotic disturbance, mood disturbance, and anxiety; S82.831A Other fracture of upper and lower end of right fibula, initial encounter for closed fracture; S82.301A Unspecified fracture of lower end of right tibia, initial encounter for closed fracture; W06.XXXA Fall from bed, initial encounter; Z68.30 Body mass index [BMI] 30.0-30.9, adult; Z79.82 Long term (current) use of aspirin; Z74.01 Bed confinement status; Z79.899 Other long term (current) drug therapy; Z82.49 Family history of ischemic heart disease and other diseases of the circulatory system; Z95.1 Presence of aortocoronary bypass graft; Y93.89 Activity, other specified; Y92.89 Other specified places as the place of occurrence of the external cause; Y99.8 Other external cause status; Z79.84 Long term (current) use of oral hypoglycemic drugs
CPT/HCPCS: 36415; 71045; 71275; 72192; 73502; 73610; 74176; 80048; 80053; 80061; 81001; 82306; 82728; 82962; 83036; 83605; 83615; 83690; 83735; 83880; 84100; 84443; 84484; 84550; 85025; 85379; 85610; 85652; 85730; 86141; 86850; 86900; 86901; 87040; 87086; 87426; 93005; 93306; 94640; 96365; 96375; 96376; 97110; 97163; G0378; J0696; J1100; J1815; J2405; J3490

== ENCOUNTER 2024-01-16 22:28 | Inpatient (IN) | payer MEDICARE, MEDICAID ==
[~2024-01-16] VITALS: Ht 152.4 cm; Wt 69.6 kg
[~2024-01-16 22:28] MED LIST changes: +ASPI-463 OR; -ASPI81CH43 PO; -ATOR40TA52 PO; -CAPT25TA5 PO; -CETI-41 PO; -CITA20TA3 PO; -FENO145T27 OR; -GABA100C9 PO; +INSUINJ18 SC; -LEV50T PO; -LEVO-28 PO; +LEVO75TA6 PO; +LISI40TA16 PO; +METO-289 PO; -PANT1INJ3 PO; +PIO30T PO; +ROSU20TA14 PO; -SITA50TA PO; -TRAM50TA2 PO
[2024-01-16 23:06] VITALS: PULSE 94; RESP 17; O2SAT 94
[2024-01-16] MEDS: SODIUM CHLORIDE 0.9% 1,000 ML IV ONE (23:06)
[2024-01-16 23:53] LABS: Basophils # (auto) 0 10 ^3/uL (0-0.2); Basophils % (auto) 0.1 % (0.0-2.0); Eosinophils # (auto) 0.1 10 ^3/uL (0-0.8); Eosinophils % (auto) 1.4 % (0.0-7.0); Hematocrit 35.9 % (36.0-46.0); Lymphocytes # (auto) 0.1 10 ^3/uL (0.4-5.4); Lymphocytes % (auto) 1.6 % (10.0-50.0); Mean Corpuscular Hemoglobin 31.4 pg (28.0-32.0); Mean Corpuscular Hgb Conc. 33.4 g/dL (32.0-36.0); Mean Corpuscular Volume 94.1 fL (80.0-100.0); Monocytes # (auto) 0.2 10 ^3/uL (0-1.3); Monocytes % (auto) 2.4 % (0.0-12.0); Neutrophils # (auto) 8.3 10 ^3/uL (1.6-8.6); Neutrophils % (auto) 94.5 % (37.0-80.0); Nucleated Red Blood Cells % 0.1 %; Platelet Count (auto) 76 10^3/uL (140-450); Red Blood Cells 3.82 10^6/uL (4.0-5.20); Red Cell Distribution Width 15.7 % (11.8-14.3); White Blood Cell 8.7 10^3/uL (4.4-10.8)
[2024-01-17 00:13] LABS: Alanine Aminotransferase 27 U/L (7-40); Albumin 3.2 g/dL (3.2-4.8); Alkaline Phosphatase 39 U/L (46-116); Anion Gap 16 (5-15); Aspartate Aminotransferase 41 U/L (13-40); BUN/Creatinine Ratio 26.7 (10.0-20.0); Bilirubin, Total 0.7 mg/dL (0.2-1.0); Blood Urea Nitrogen 73 mg/dL (9-23); Calcium 9.3 mg/dL (8.7-10.4); Carbon Dioxide 14 mmol/L (20-31); Chloride 102 mmol/L (98-107); Glucose 152 mg/dL (74-106); Potassium 3.4 mmol/L (3.5-5.1); Sodium 132 mmol/L (136-145); Total Protein 5.7 g/dL (5.7-8.2)
[2024-01-17 01:02] LABS: Large Platelets FEW; Platelet Estimate Decreased
[2024-01-17 01:13] LABS: Urine Bacteria MANY /hpf (None Seen); Urine Blood 2+ /uL (Negative); Urine Clarity Ex.Turbid (Clear); Urine Color Orange (Yellow); Urine Mucus FEW (None Seen); Urine Protein, UAD 2+ (Negative); Urine Specific Gravity 1.018 (1.001-1.035); Urine Urobilinogen 4 mg/dL (Negative); Urine WBC 2196 /hpf (0 - 5); Urine WBC Clumps PRESENT /hpf (None Seen)
[2024-01-17] MEDS: ONDANSETRON HCL 4 MG/2 ML VIAL IV ONE (06:27)
[2024-01-17] MEDS: MORPHINE SULFATE INJ 2 MG/ml SYRG IV ONE (06:28)
[2024-01-17 08:00] VITALS: PULSE 76; RESP 16; O2SAT 97
[2024-01-17] MEDS ORDERED: DEXTROSE (50%) 50ML SYRG IV PRN (12:45)
[2024-01-17] MEDS ORDERED: NITROGLYCERIN 0.4 MG SL TAB SL PRN (12:45)
[2024-01-17] MEDS: cefTRIAXone 1GM/50ML D5W 50 ML IV ONE (13:33)
[2024-01-17] MEDS: SODIUM CHLORIDE 0.9% 1,000 ML IV SCH (13:33)
[2024-01-17 14:05] LABS: INR 1.13 (0.9-1.15); Prothrombin Time 11.9 sec (9.3-11.8)
[2024-01-17 14:08] LABS: Triglycerides 509 mg/dL (< 150)
[2024-01-17 14:10] LABS: Cholesterol 136 mg/dL (< 200); HDL Cholesterol 9 mg/dL (40-59)
[2024-01-17 14:40] LABS: Creatinine, Urine 61.61 mg/dL (30.0-125.0)
[2024-01-17] MEDS: InsuLIN REG 1unit/0.01ml Soln (100units/ml) SC SCH (17:00)
[2024-01-17] MEDS: ACCU-CHEK COMFORT CURVE STRIP VI SCH (17:11)
[2024-01-17] MEDS ORDERED: InsuLIN REG 1unit/0.01ml Soln (100units/ml) SC SCH (18:00)
[2024-01-17] MEDS ORDERED: ACCU-CHEK COMFORT CURVE STRIP VI SCH (18:00)
[2024-01-17 19:01] LABS: Chloride 105 mmol/L (98-107); Potassium 3.5 mmol/L (3.5-5.1); Sodium 135 mmol/L (136-145)
[2024-01-17 19:02] LABS: Anion Gap 18 (5-15); Calcium 8.9 mg/dL (8.7-10.4); Carbon Dioxide 12 mmol/L (20-31)
[2024-01-17 19:07] LABS: BUN/Creatinine Ratio 36.1 (10.0-20.0); Glucose 138 mg/dL (74-106)
[2024-01-17 19:29] LABS: Blood Urea Nitrogen 91 mg/dL (9-23)
[2024-01-17 20:23] VITALS: PULSE 76; RESP 16; O2SAT 97
[2024-01-17] MEDS ORDERED: LORazepam 2MG/ML-1ML VIAL IV PRN (21:45)
[2024-01-17 21:50] VITALS: BP 108/66; PULSE 79; RESP 17; TEMP 97.5; O2SAT 99
[2024-01-17] MEDS ORDERED: AMLO1TAB23 PO (21:52)
[2024-01-17] MEDS ORDERED: CITA10TA8 PO (21:52)
[2024-01-17] MEDS ORDERED: ATOR40TA52 PO (21:52)
[2024-01-17] MEDS ORDERED: B-COTAB26 OR (21:52)
[2024-01-17] MEDS ORDERED: FENO160T PO (21:52)
[2024-01-17] MEDS ORDERED: PANT40TA2 PO (21:52)
[2024-01-17] MEDS ORDERED: CAPT25TA5 PO (21:52)
[2024-01-17] MEDS ORDERED: LACT10SO59 PO (21:52)
[2024-01-17] MEDS ORDERED: DOCU-111 PO (21:52)
[2024-01-17] MEDS ORDERED: GABA-1308 PO (21:52)
[2024-01-17] MEDS ORDERED: ALBUAER3 IN (21:52)
[2024-01-17] MEDS ORDERED: SITA50TA PO (21:52)
[2024-01-17] MEDS ORDERED: NAPHDRO11 OP (21:52)
[2024-01-17] MEDS ORDERED: ACET-1882 PO (21:52)
[2024-01-17 21:53] VITALS: PULSE 79; RESP 17; O2SAT 99
[2024-01-18] VITALS (8 sets, daily range): BP systolic 101–121; BP diastolic 50–67; PULSE 62–80; RESP 14–18; TEMP 97.1–98; O2SAT 95–100
[2024-01-18] MEDS: LEVOTHYROXINE SODIUM 25 MCG TAB PO SCH (06:41)
[2024-01-18] MEDS: LEVOTHYROXINE SODIUM 50 MCG TAB PO SCH (06:41)
[2024-01-18 07:07] LABS: RPR Non Reactive (Non Reactive)
[2024-01-18] MEDS ORDERED: ASPirin 81 mg TAB PO SCH (10:00)
[2024-01-18] MEDS ORDERED: PATIENTS OWN MEDICATION (Lisinopril 1 TAB) PO SCH (10:00)
[2024-01-18] MEDS ORDERED: PATIENTS OWN MEDICATION (Levothyroxine Sodium 1 TAB) PO SCH (10:00)
[2024-01-18] MEDS ORDERED: ENOXAPARIN SOD 40 MG/0.4 ML SYRINGE SC SCH (10:00)
[2024-01-18] MEDS: METOPROLOL SUCCINATE XL 50 MG TAB PO SCH (10:21)
[2024-01-18] MEDS: LISINOPRIL 20 MG TAB PO SCH (10:22)
[2024-01-18] MEDS: cefTRIAXone 1GM/50ML D5W 50 ML IV SCH (10:25)
[2024-01-18] MEDS: ASPirin-EC 81 mg tab PO SCH (10:34)
[2024-01-18 12:10] LABS: Basophils # (auto) 0 10 ^3/uL (0-0.2); Eosinophils # (auto) 0 10 ^3/uL (0-0.8); Eosinophils % (auto) 0.2 % (0.0-7.0); Hematocrit 34.9 % (36.0-46.0); Hemoglobin 11.6 g/dL (12.2-16.2); Lymphocytes # (auto) 0.4 10 ^3/uL (0.4-5.4); Lymphocytes % (auto) 6.1 % (10.0-50.0); Mean Corpuscular Hemoglobin 31.8 pg (28.0-32.0); Mean Corpuscular Hgb Conc. 33.3 g/dL (32.0-36.0); Mean Corpuscular Volume 95.4 fL (80.0-100.0); Monocytes # (auto) 0.4 10 ^3/uL (0-1.3); Monocytes % (auto) 5.3 % (0.0-12.0); Neutrophils # (auto) 5.9 10 ^3/uL (1.6-8.6); Neutrophils % (auto) 88.4 % (37.0-80.0); Nucleated Red Blood Cells % 0.1 %; Platelet Count (auto) 70 10^3/uL (140-450); Red Blood Cells 3.66 10^6/uL (4.0-5.20); Red Cell Distribution Width 16.5 % (11.8-14.3); White Blood Cell 6.7 10^3/uL (4.4-10.8)
[2024-01-18 12:23] LABS: Chloride 107 mmol/L (98-107); Potassium 3.6 mmol/L (3.5-5.1); Sodium 136 mmol/L (136-145)
[2024-01-18 12:24] LABS: Anion Gap 13 (5-15); Carbon Dioxide 16 mmol/L (20-31)
[2024-01-18 12:25] LABS: Calcium 8.6 mg/dL (8.7-10.4)
[2024-01-18 12:30] LABS: BUN/Creatinine Ratio 40.6 (10.0-20.0); Glucose 151 mg/dL (74-106)
[2024-01-18 13:12] LABS: Blood Urea Nitrogen 86 mg/dL (9-23)
[2024-01-18 14:02] LABS: Amphetamine Screen, Urine Neg (NEGATIVE); Benzodiazephine Screen, Urine Neg (NEGATIVE)
[2024-01-18 14:03] LABS: Barbiturate Scree,Urine Neg (NEGATIVE); Cannabinoid Screen, Urine Neg (NEGATIVE); Cocaine Screen, Urine Neg (NEGATIVE); Opiate Scree,Urine Neg (NEGATIVE); Phencyclidine Screen, Urine Neg (NEGATIVE)
[2024-01-18] MEDS: HYDROcodone-ACET 5/325MG TAB PO PRN (15:59)
[2024-01-18] MEDS: ATORVASTATIN 20 MG TAB PO SCH (21:10)
[2024-01-18] MEDS ORDERED: HEPARIN SODIUM (PORCINE) 5000 UNITS/ML 1ML VIAL SC SCH (22:00)
[2024-01-19] VITALS (8 sets, daily range): BP systolic 107–129; BP diastolic 57–95; PULSE 56–99; RESP 14–17; TEMP 96.2–98.6; O2SAT 65–100
[2024-01-19 06:42] LABS: Basophils # (auto) 0 10 ^3/uL (0-0.2); Basophils % (auto) 0.1 % (0.0-2.0); Eosinophils # (auto) 0 10 ^3/uL (0-0.8); Eosinophils % (auto) 0.2 % (0.0-7.0); Hematocrit 32.6 % (36.0-46.0); Lymphocytes # (auto) 0.3 10 ^3/uL (0.4-5.4); Lymphocytes % (auto) 5.2 % (10.0-50.0); Mean Corpuscular Hemoglobin 31.6 pg (28.0-32.0); Mean Corpuscular Hgb Conc. 33.8 g/dL (32.0-36.0); Mean Corpuscular Volume 93.3 fL (80.0-100.0); Monocytes # (auto) 0.3 10 ^3/uL (0-1.3); Neutrophils # (auto) 5.2 10 ^3/uL (1.6-8.6); Neutrophils % (auto) 88.5 % (37.0-80.0); Nucleated Red Blood Cells % 0.2 %; Platelet Count (auto) 67 10^3/uL (140-450); Red Blood Cells 3.49 10^6/uL (4.0-5.20); Red Cell Distribution Width 15.9 % (11.8-14.3); White Blood Cell 5.8 10^3/uL (4.4-10.8)
[2024-01-19 06:55] LABS: Anion Gap 12 (5-15); Calcium 8.7 mg/dL (8.7-10.4); Carbon Dioxide 15 mmol/L (20-31); Chloride 111 mmol/L (98-107); Potassium 2.9 mmol/L (3.5-5.1); Sodium 138 mmol/L (136-145)
[2024-01-19 07:01] LABS: BUN/Creatinine Ratio 36.2 (10.0-20.0); Glucose 131 mg/dL (74-106)
[2024-01-19 07:02] LABS: Blood Urea Nitrogen 59 mg/dL (9-23)
[2024-01-19] MEDS: POTASSIUM CHL 20 Meq TABLET PO ONE (11:21)
[2024-01-19] MEDS: POTASSIUM CHL 20MEQ/100ML 100 ML IV SCH (11:22)
[2024-01-19] MEDS: MAGNESIUM OXIDE 400 MG TAB PO ONE ×2 (11:22→16:15)
[2024-01-19] MEDS: PANTOPRAZOLE 40 MG TAB PO ONE (17:28)
[2024-01-20] VITALS (7 sets, daily range): BP systolic 99–157; BP diastolic 63–78; PULSE 60–78; RESP 16–18; TEMP 97–98.7; O2SAT 96–100
[2024-01-20] MEDS: PANTOPRAZOLE 40 MG TAB PO SCH (06:15)
[2024-01-20] MEDS: FUROSEMIDE 100 MG/10ML VIAL IV ONE (13:50)
[2024-01-20 15:17] LABS: Basophils # (auto) 0 10 ^3/uL (0-0.2); Basophils % (auto) 0.1 % (0.0-2.0); Eosinophils # (auto) 0 10 ^3/uL (0-0.8); Eosinophils % (auto) 0.3 % (0.0-7.0); Hematocrit 38.5 % (36.0-46.0); Hemoglobin 12.2 g/dL (12.2-16.2); Lymphocytes # (auto) 0.2 10 ^3/uL (0.4-5.4); Lymphocytes % (auto) 4.3 % (10.0-50.0); Mean Corpuscular Hgb Conc. 31.6 g/dL (32.0-36.0); Mean Corpuscular Volume 98.1 fL (80.0-100.0); Monocytes # (auto) 0.1 10 ^3/uL (0-1.3); Monocytes % (auto) 1.8 % (0.0-12.0); Neutrophils # (auto) 4.8 10 ^3/uL (1.6-8.6); Neutrophils % (auto) 93.5 % (37.0-80.0); Platelet Count (auto) 70 10^3/uL (140-450); Red Blood Cells 3.93 10^6/uL (4.0-5.20); White Blood Cell 5.1 10^3/uL (4.4-10.8)
[2024-01-20 15:30] LABS: Chloride 116 mmol/L (98-107); Potassium 3.9 mmol/L (3.5-5.1); Sodium 140 mmol/L (136-145)
[2024-01-20 15:31] LABS: Anion Gap 10 (5-15); Carbon Dioxide 14 mmol/L (20-31)
[2024-01-20 15:36] LABS: BUN/Creatinine Ratio 32.4 (10.0-20.0); Glucose 116 mg/dL (74-106)
[2024-01-20 15:37] LABS: Blood Urea Nitrogen 34 mg/dL (9-23)
[2024-01-21 01:00] VITALS: BP 127/78; PULSE 72; RESP 19; TEMP 98.2; O2SAT 98
[2024-01-21 05:00] VITALS: BP 147/68; PULSE 68; RESP 17; TEMP 98; O2SAT 97
[2024-01-21 08:10] VITALS: RESP 16
[2024-01-21 09:00] VITALS: BP 122/71; PULSE 68; RESP 18; TEMP 97.7; O2SAT 99
[2024-01-21 13:00] VITALS: BP 129/78; PULSE 67; RESP 20; TEMP 97.8; O2SAT 98
[2024-01-21 14:01] LABS: Chloride 112 mmol/L (98-107); Sodium 142 mmol/L (136-145)
[2024-01-21 14:02] LABS: Anion Gap 10 (5-15); Calcium 9.2 mg/dL (8.7-10.4); Carbon Dioxide 20 mmol/L (20-31)
[2024-01-21 14:07] LABS: BUN/Creatinine Ratio 36.4 (10.0-20.0); Blood Urea Nitrogen 32 mg/dL (9-23); Glucose 124 mg/dL (74-106)
[2024-01-21 14:08] LABS: Magnesium 1.1 mg/dL (1.6-2.6)
[2024-01-21 14:29] LABS: Potassium 2.5 mmol/L (3.5-5.1)
[2024-01-21] MEDS: MAGNESIUM OXIDE 400 MG TAB PO ONE (14:45)
[2024-01-21] MEDS: POTASSIUM CHL 20 Meq TABLET PO ONE (14:45)
[2024-01-21] MEDS ORDERED: POTASSIUM EFFERVESENT TAB 25 MEQ PO ONE (14:45)
[2024-01-21] MEDS: MAGNESIUM OXIDE 400 MG TAB PO SCH (15:37)
[2024-01-21] MEDS: POTASSIUM EFFERVESENT TAB 25 MEQ PO ONE (15:59)
[2024-01-21] MEDS: LISINOPRIL 5 MG TAB PO ONE (16:37)
[2024-01-21 20:52] VITALS: BP 135/75; PULSE 62; RESP 17; TEMP 97.6; O2SAT 99
[2024-01-21] MEDS ORDERED: POTASSIUM CHL 20 Meq TABLET PO SCH (22:00)
[2024-01-21] MEDS ORDERED: POTASSIUM EFFERVESENT TAB 25 MEQ PO SCH (22:00)
[2024-01-21] MEDS: APIXABAN 5 MG TAB PO SCH (22:20)
[2024-01-21] MEDS: POTASSIUM EFFERVESENT TAB 25 MEQ PO SCH (22:22)
[2024-01-22] VITALS (8 sets, daily range): BP systolic 129–163; BP diastolic 58–74; PULSE 60–81; RESP 18–19; TEMP 97.1–97.7; O2SAT 97–100
[2024-01-22 09:39] LABS: Basophils # (auto) 0 10 ^3/uL (0-0.2); Basophils % (auto) 0.2 % (0.0-2.0); Eosinophils # (auto) 0 10 ^3/uL (0-0.8); Eosinophils % (auto) 0.3 % (0.0-7.0); Hematocrit 32.1 % (36.0-46.0); Hemoglobin 10.8 g/dL (12.2-16.2); Lymphocytes # (auto) 0.6 10 ^3/uL (0.4-5.4); Lymphocytes % (auto) 10.5 % (10.0-50.0); Mean Corpuscular Hemoglobin 31.3 pg (28.0-32.0); Mean Corpuscular Hgb Conc. 33.6 g/dL (32.0-36.0); Mean Corpuscular Volume 93.1 fL (80.0-100.0); Monocytes # (auto) 0.5 10 ^3/uL (0-1.3); Monocytes % (auto) 8.3 % (0.0-12.0); Neutrophils # (auto) 4.4 10 ^3/uL (1.6-8.6); Neutrophils % (auto) 80.7 % (37.0-80.0); Nucleated Red Blood Cells % 0.2 %; Platelet Count (auto) 73 10^3/uL (140-450); Red Blood Cells 3.45 10^6/uL (4.0-5.20); Red Cell Distribution Width 16.3 % (11.8-14.3); White Blood Cell 5.4 10^3/uL (4.4-10.8)
[2024-01-22 09:44] LABS: Chloride 108 mmol/L (98-107); Potassium 4.2 mmol/L (3.5-5.1); Sodium 141 mmol/L (136-145)
[2024-01-22 09:45] LABS: Anion Gap 10 (5-15); Calcium 9.3 mg/dL (8.7-10.4); Carbon Dioxide 23 mmol/L (20-31)
[2024-01-22 09:50] LABS: BUN/Creatinine Ratio 37.5 (10.0-20.0); Blood Urea Nitrogen 27 mg/dL (9-23); Glucose 140 mg/dL (74-106); Magnesium 1.3 mg/dL (1.6-2.6)
[2024-01-22] MEDS: LISINOPRIL 5 MG TAB PO SCH (10:00)
[2024-01-22] MEDS ORDERED: MAGNESIUM OXIDE 400 MG TAB PO SCH (10:00)
[2024-01-22] MEDS ORDERED: CEFD300C2 PO (11:59)
[2024-01-22] MEDS ORDERED: hydrALAZINE HCL 20 MG/ML VL IV PRN (12:00)
[2024-01-22] MEDS ORDERED: APIX5TAB PO (14:17)
[2024-01-22] MEDS ORDERED: MAGN400T40 PO (16:35)
== END 2024-01-22 20:23 | disposition home or self-care (01) | DRG 682 ==
LOC: EDBD 22:28 → ER 22:28 → OVERFLOW 01-17 12:40 → CENTRAL 01-17 21:21 → TELE-CENTR 01-17 23:29 → CENTRAL 01-20 17:46 → TELE-CENTR 01-22 08:06
PROVIDERS: ADMIT Internal Medicine; ATTEND Internal Medicine
DX: N17.0 Acute kidney failure with tubular necrosis (principal); G93.41 Metabolic encephalopathy; I50.23 Acute on chronic systolic (congestive) heart failure; K55.059 Acute (reversible) ischemia of intestine, part and extent unspecified; I13.0 Hypertensive heart and chronic kidney disease with heart failure and stage 1 through stage 4 chronic kidney disease, or unspecified chronic kidney disease; E87.20 Acidosis, unspecified; N30.00 Acute cystitis without hematuria; I69.351 Hemiplegia and hemiparesis following cerebral infarction affecting right dominant side; I82.812 Embolism and thrombosis of superficial veins of left lower extremity; D69.6 Thrombocytopenia, unspecified; E03.9 Hypothyroidism, unspecified; E11.22 Type 2 diabetes mellitus with diabetic chronic kidney disease; E83.42 Hypomagnesemia; E86.0 Dehydration; E87.6 Hypokalemia; E78.1 Pure hyperglyceridemia; F03.A0 Unspecified dementia, mild, without behavioral disturbance, psychotic disturbance, mood disturbance, and anxiety; N18.2 Chronic kidney disease, stage 2 (mild); E11.65 Type 2 diabetes mellitus with hyperglycemia; I25.10 Atherosclerotic heart disease of native coronary artery without angina pectoris; Z79.82 Long term (current) use of aspirin; Z90.49 Acquired absence of other specified parts of digestive tract; Z95.1 Presence of aortocoronary bypass graft; Z82.49 Family history of ischemic heart disease and other diseases of the circulatory system; Z83.3 Family history of diabetes mellitus; Z79.899 Other long term (current) drug therapy
CPT/HCPCS: 36415; 70450; 70551; 71045; 74176; 80048; 80053; 80061; 80307; 81001; 82140; 82306; 82570; 82607; 82962; 83036; 83605; 83735; 83880; 84300; 84443; 84484; 85025; 85384; 85610; 86592; 87040; 87086; 87088; 87186; 93005; 93306; 93886; 93970; 97110; 97163; 97530; 99291; G0378; J1815; J2405; J3480

== ENCOUNTER 2024-04-07 17:10 | Inpatient (IN) | payer MEDICARE, MEDICAID ==
[~2024-04-07] VITALS: Ht 157.5 cm; Wt 72.0 kg
[~2024-04-07 17:10] MED LIST changes: +ACET-1882 PO; +ALBUAER3 IN; +AMLO1TAB23 PO; +APIX2.5T PO; +APIX5TAB PO; +ATOR-507 PO; +ATOR40TA52 PO; +B-COTAB26 OR; +CAPT25TA5 PO; +CEFD300C2 PO; +CITA-77 PO; +CITA10TA8 PO; +DOCU-111 PO; +FENO160T PO; +GABA-1308 PO; +LACT10SO59 PO; +NAPHDRO11 OP; +PANT40TA2 PO; +SITA50TA PO
[2024-04-07 17:45] VITALS: PULSE 114; RESP 17; O2SAT 100
--- NOTE | 2024-04-07 18:22 | ECG ---
[facility] Test Date: 2024-04-07 Test Time: 17:15:27 Pat Name: AGUEDA GALINDO Department: ER Room: Gender: F Hand Roller: LIUDMILA : 1950 Requested By: KIMBERLY GARCIA Order Number: [id number] Reading MD: Elizabeth Alegria Measurements Intervals [place] Rate: 115 P: -13 SC: 128 QRS: -27 QRSD: 106 T: 182 QT: 349 QTc: 483 Interpretive Statements Sinus tachycardia Borderline left axis deviation Borderline low voltage, extremity leads Abnormal R-wave progression, early transition Repol abnrm suggests ischemia, anterolateral Electronically Signed On 04-07-2024 22:28:36 PST by Elizabeth Alegria Please click the below link to view image of tracing.
[2024-04-07 19:08] LABS: Basophils # (auto) 0 10 ^3/uL (0-0.2); Basophils % (auto) 0.1 % (0.0-2.0); Eosinophils # (auto) 0 10 ^3/uL (0-0.8); Hematocrit 27.1 % (36.0-46.0); Hemoglobin 8.6 g/dL (12.2-16.2); Lymphocytes # (auto) 0.5 10 ^3/uL (0.4-5.4); Lymphocytes % (auto) 9.7 % (10.0-50.0); Mean Corpuscular Hemoglobin 31.5 pg (28.0-32.0); Mean Corpuscular Hgb Conc. 31.7 g/dL (32.0-36.0); Mean Corpuscular Volume 99.5 fL (80.0-100.0); Monocytes # (auto) 0.5 10 ^3/uL (0-1.3); Monocytes % (auto) 8.4 % (0.0-12.0); Neutrophils # (auto) 4.5 10 ^3/uL (1.6-8.6); Neutrophils % (auto) 81.8 % (37.0-80.0); Nucleated Red Blood Cells % 0.1 %; Platelet Count (auto) 520 10^3/uL (140-450); Red Blood Cells 2.72 10^6/uL (4.0-5.20); Red Cell Distribution Width 22.9 % (11.8-14.3); White Blood Cell 5.5 10^3/uL (4.4-10.8)
--- NOTE | 2024-04-07 19:20 | ED.PDOC ---
HPI Comments 73y F who presents to the ED via EMS for chief complaint of low blood pressure. Per EMS, pt family called EMS after pt had been acting alerted this AM and upon arrival to residence, EMS checked vitals and states BP was 76/51 and pt was brought to the ED for further evaluation. Pt family states pt has been getting increasing alerted over the past 3 days. Pt now in the ED, is alert but unable to answer any questions at this time. Chief Complaint: Low Blood Pressure Time Seen by MD: 19:14 Primary Care Provider: NONE Reviewed Notes: Box Coverer Hand Notes Allergies: Coded Allergies: NO KNOWN ALLERGIES (Unverified , 04/07/24) Information Source: Emergency Med Personnel Mode of Arrival: EMS Constitutional: denies: chills, diaphoresis, fatigue, fever, malaise, sweats, weakness, others EENTM: denies: blurred vision, double vision, ear bleeding, ear discharge, ear drainage, ear pain, ear ringing, eye pain, eye redness, hearing loss, mouth pain, mouth swelling, nasal discharge, nose bleeding, nose congestion, nose pain, photophobia, tearing, throat pain, throat swelling, voice changes, others Respiratory: denies: cough, hemoptysis, orthopnea, SOB at rest, shortness of breath, SOB with excertion, stridor, wheezing, others Cardiovascular: denies: chest pain, dizzy spells, diaphoresis, Dyspnea on exertion, edema, irregular heart beat, left arm pain, lightheadedness, palpita tions, PND, syncope, others Gastrointestinal: denies: abdomen distended, abdominal pain, blood streaked jayjay wels, constipated, diarrhea, dysphagia, difficulty swallowing, hematemesis, melena, nausea, poor appetite, poor fluid intake, rectal bleeding, rectal pain, vomiting, others Genitourinary: denies: abnormal vagina bleeding, burning, dyspareunia, dysuria, flank pain, frequency, hematuria, incontinence, pain, , vagina discharge, urgency, others Neurological: denies: dizziness, fainting, headache, left sided numbness, left sided weakness, numbness, paresthesia, pre-existing deficit, right sided numbness, right sided weakness, seizure, speech problems, tingling, tremors, weakness, others Musculoskeletal: denies: back pain, gout, joint pain, joint swelling, muscle pain, muscle stiffness, neck pain, others Integumetry: denies: bruises, change in color, change in hair/nails, dryness, laceration, lesions, lumps, rash, wounds, others Allergic/Immunocompromised: denies: Difficulty Healing, Frequent Infections, Hives, Itching, others Hematologic/Lymphatic: denies: anemia, blood clots, easy bleeding, easy bruis ing, swollen glands, others Endocrine: denies: excessive hunger, excessive sweating, excessive thirst, exc essive urination, flushing, intolerance to cold, intolerance to heat, unexplained weight gain, unexplained weight loss, others Psychiatric: denies: anxiety, bipolar disorder, depression, hopeless, panic disorder, schizophrenia, sleepless, suicidal, others Unable to Obtain due to: Altered Mental Status All Other Systems: Reviewed and Negative Physical Exam General Appearance: Other (Likely ill-appearing) HEENT: Other (Pale sclera) Neck: Full Range of Motion, Non-Tender, Normal, Normal Inspection Respiratory: Other (Crackles bilaterally) Cardiovascular: Other (Lower extremity edema) Breast Exam: Deferred Gastrointestinal: No Organomegaly, Non Tender, No Pulsatile Mass, Normal Bowel Sounds, Soft Genitalia: Deferred Pelvic: Deferred Rectal: Deferred Extremities: Other (Wounds in the bilateral lower extremities) Neurologic: Other (Patient is disoriented not following commands) Cerebellar Function: NOT DONE Reflexes: NOT DONE Skin: Wounds Lymphatic: No Adenopathy Was a procedure done? Was a procedure done?: No CP Differential Dx Differential Diagnosis: A-fib, A-Flutter, Angina, Anxiety / Panic Attack, Atrial Dysrhythmia, Electrolyte Disorder, Heart Failure, PVC's Other Differential Diagnosis dehydration , UTI, urosepsis, X-Ray, Labs, Meds, VS Vital Signs Date Time Temp Pulse Resp B/P (MAP) Pulse Ox O2 Delivery O2 Flow Rate FiO2 04/07/24 20:41 109 16 100 Nasal Cannula* 2 28 04/07/24 20:05 109 04/07/24 19:30 98.6 109 16 91/43 (59) 100 98.6 04/07/24 18:00 116 14 117/56 (76) 100 04/07/24 17:45 114 17 100 Nasal Cannula* 2 28 04/07/24 17:36 98.1 114 14 103/35 (57) 100 98.1 12/30/24 17:16 97.8 115 16 76/51 (59) 98 04/07/24 17:15 115 Lab Test 04/07/24 20:36 04/07/24 18:46 Range/Units Troponin I High Sensitivity 16 16 </=34 ng/L White Blood Count 5.5 4.4-10.8 10^3/uL Red Blood Count 2.72 L 4.0-5.20 10^6/uL Hemoglobin 8.6 L 12.2-16.2 g/dL Hematocrit 27.1 L 36.0-46.0 % Mean Corpuscular Volume 99.5 80.0-100.0 fL Mean Corpuscular Hemoglobin 31.5 28.0-32.0 pg Mean Corpuscular Hemoglobin Concent 31.7 L 32.0-36.0 g/dL Red Cell Distribution Width 22.9 H 11.8-14.3 % Platelet Count 520 H 140-450 10^3/uL Mean Platelet Volume 8.4 6.9-10.8 fL Neutrophils (%) (Auto) 81.8 H 37.0-80.0 % Lymphocytes (%) (Auto) 9.7 L 10.0-50.0 % Monocytes (%) (Auto) 8.4 0.0-12.0 % Eosinophils (%) (Auto) 0.0 0.0-7.0 % Basophils (%) (Auto) 0.1 0.0-2.0 % Neutrophils # (Auto) 4.5 1.6-8.6 10 ^3/uL Lymphocytes # (Auto) 0.5 0.4-5.4 10 ^3/uL Monocytes # (Auto) 0.5 0-1.3 10 ^3/uL Eosinophils # (Auto) 0 0-0.8 10 ^3/uL Basophils # (Auto) 0 0-0.2 10 ^3/uL Nucleated Red Blood Cells 0.1 % Sodium Level 143 136-145 mmol/L Potassium Level 3.5 3.5-5.1 mmol/L Chloride Level 115 H 98-107 mmol/L Carbon Dioxide Level 17 L 20-31 mmol/L Anion Gap 11 5-15 Blood Urea Nitrogen 41 H 9-23 mg/dL Creatinine 1.13 H 0.550-1.02 mg/dL Glomerular Filtration Rate Calc 51 >90 mL/min BUN/Creatinine Ratio 36.3 H 10.0-20.0 Serum Glucose 101 74-106 mg/dL Lactic Acid Level 1.7 0.4-2.0 mmol/L Calcium Level 8.9 8.7-10.4 mg/dL Total Bilirubin 2.1 H 0.2-1.0 mg/dL Aspartate Amino Transferase (AST) 53 H 13-40 U/L Alanine Aminotransferase (ALT) 119 H 7-40 U/L Alkaline Phosphatase 99 46-116 U/L B-Type Natriuretic Peptide 183.49 0-100 pg/mL Total Protein 5.5 L 5.7-8.2 g/dL Albumin 2.7 L 3.2-4.8 g/dL [place] [address] Ph: [phone] DIAGNOSTIC IMAGING Diagnostic Imaging Report : [id number] Signed PATIENT: AGUEDA GALINDO ACCT: [id number] UNIT: [id number] : 1950 LOC: ER ROOM / BED: / AGE / SEX: 73 / F ADM STATUS: REG ER SERVICE 15 ORDERING PHYSICIAN: KIMBERLY GARCIA MD PROCEDURE(s): HWOCT - HEAD WITHOUT CONTRAST REASON: [facility] ORDER NUMBER(s): [id number], ACCESSION NUMBER(s): [id number] EXAM: CT HEAD WITHOUT CONTRAST INDICATION: ams TECHNIQUE: CT of the head without intravenous contrast. Radiation Dose Information: CT Dose: CTDI volume is 51.15 mGy. Dose-length product is 922.33 mGy*cm The dose indicators for CT are the volume Computed Tomography (CT) Dose Index (CTDIvol) and the Dose Length Product (DLP), and are measured in units of mGy and mGy-cm, respectively. These indicators are not patient dose, but values generated from the CT scanner acquisition factors. The report includes radiation exposure data for exposures received during this examination. COMPARISON: None FINDINGS: Motion artifact in the lower images of the head inferior to the [id number]. If this area is of clinical concern recommend repeat study when patient is able to cooperate There is no evidence of acute intracranial hemorrhage, extra-axial collection, mass effect, midline shift, herniation or hydrocephalus. The ventricles, sulci and cisterns are age appropriate. The villareal-white differentiation is intact. Patchy periventricular and subcortical white matter hypoattenuation is nonspecific but may be related to small vessel ischemic disease. Air-fluid level left maxillary sinus. and mastoid air cells are clear. The surrounding soft tissues and osseous structures are unremarkable. IMPRESSION: 1. No acute intracranial hemorrhage. 2. No CT findings of territorial ischemia. HS:Y ATED BY: RONALD VILLALBA Jr., DO DICTATED DATE/TIME: 04/07/241925 SIGNED BY: RONALD VILLALBA Jr., SIGNED DATE/TIME: 04/07/241925 CC: [place] [address] Ph: [phone] DIAGNOSTIC IMAGING Diagnostic Imaging Report : [id number] Signed PATIENT: AGUEDA GALINDO ACCT: [id number] UNIT: [id number] : 1950 LOC: ER ROOM / BED: / AGE / SEX: 73 / F ADM STATUS: REG ER SERVICE 15 ORDERING PHYSICIAN: KIMBERLY GARCIA MD PROCEDURE(s): CXRP - CHEST PORTABLE REASON: ams ORDER NUMBER(s): [id number], ACCESSION NUMBER(s): [id number] CHEST RADIOGRAPH Indication: ams Technique: Single frontal view of the chest was obtained COMPARISON: None FINDINGS: Lines and Tubes: Sternal wires in place. Lungs: Clear Pleura: No effusion. No pneumothorax. Cardiomediastinal contours: Unremarkable Bones: Unremarkable IMPRESSION: 1. No acute disease. ATED BY: TELLO MERRITT MD DICTATED DATE/TIME: 04/07/241919 SIGNED BY: TELLO MERRITT MD SIGNED DATE/TIME: 04/07/241919 CC: Time of 1ST Reevaluation: 19:45 Reevaluation 1ST: Unchanged Patient Education/Counseling: Other (pt altered) Family Education/Counseling: No Family Present Additional Information - I reviewed the following notes from patient's past medical encounters: - The following tests were ordered, and results were reviewed by me: (Labs, X- Ray, EKG): troponin x 3, CT head without contrast, chest x-ray, CMP, lactic acid, UA, troponin, CBC, BNP, EKG x1, - Additional information was gathered from interviewing the following independent Historian: (Family, Other Providers, EMT): none - I reviewed and agreed with the following test results read by other provider: (X-ray, CT, US): radiologist - I discussed treatments and results with medical personnel and: (consultants, family): none Departure 1 Departure Time of Disposition: 21:54 (Patient with worsening weakness and altered mental status. Patient's hemoglobin is 8.5 electrolytes are disarray. Patient is hypotensive and receiving fluids. Will admit for further workup.) Impression: Primary Impression: Generalized weakness Additional Impressions: Altered mental status Qualified Codes: R41.0 - Disorientation, unspecified Hypotension Qualified Codes: I95.9 - Hypotension, unspecified Metabolic encephalopathy Disposition: ADMITTED INPATIENT Admit to: Med Surg Condition: Serious Critical Care Note Critical Care Time?: No Stability Stability form required: No Heart Score Heart Score: Heart Score Response (Comments) Value History Moderate Suspicious 1 EKG Repolarization Disturb 1 Age >65 2 Risk Factors No known risk factors 0 Troponin Normal limit 0 Total 4 I personally scribed for KIMBERLY GARCIA MD (TANO) on 04/07/24 at 19:20. Electronically submitted by Rozina Harris ([email or web address]). I personally scribed for KIMBERLY GARCIA MD ([email or web address]) on 04/07/24 at 19:27. Electronically submitted by Rozina Harris ([email or web address]). I personally scribed for KIMBERLY GARCIA MD (TANO) on 04/07/24 at 20:46. Elect ronically submitted by Rozina Harris ([email or web address]). KIMBERLY GARCIA MD Apr 07, 2024 19:20
--- NOTE | 2024-04-07 19:23 | DVH ---
CHEST RADIOGRAPH Indication: ams Technique: Single frontal view of the chest was obtained COMPARISON: None FINDINGS: Lines and Tubes: Sternal wires in place. Lungs: Clear Pleura: No effusion. No pneumothorax. Cardiomediastinal contours: Unremarkable Bones: Unremarkable IMPRESSION: 1. No acute disease.
[2024-04-07 19:28] LABS: Alkaline Phosphatase 99 U/L (46-116); Anion Gap 11 (5-15); BUN/Creatinine Ratio 36.3 (10.0-20.0); Calcium 8.9 mg/dL (8.7-10.4); Glucose 101 mg/dL (74-106); Potassium 3.5 mmol/L (3.5-5.1); Sodium 143 mmol/L (136-145)
--- NOTE | 2024-04-07 19:28 | DVH ---
EXAM: CT HEAD WITHOUT CONTRAST INDICATION: ams TECHNIQUE: CT of the head without intravenous contrast. Radiation Dose Information: CT Dose: CTDI volume is 51.15 mGy. Dose-length product is 922.33 mGy*cm The dose indicators for CT are the volume Computed Tomography (CT) Dose Index (CTDIvol) and the Dose Length Product (DLP), and are measured in units of mGy and mGy-cm, respectively. These indicators are not patient dose, but values generated from the CT scanner acquisition factors. The report includes radiation exposure data for exposures received during this examination. COMPARISON: None FINDINGS: Motion artifact in the lower images of the head inferior to the [id number]. If this area is of clinical concern recommend repeat study when patient is able to cooperate There is no evidence of acute intracranial hemorrhage, extra-axial collection, mass effect, midline s hift, herniation or hydrocephalus. The ventricles, sulci and cisterns are age appropriate. The villareal-white differentiation is intact. Patchy periventricular and subcortical white matter hypoattenuation is nonspecific but may be related to small vessel ischemic disease. Air-fluid level left maxillary sinus. and mastoid air cells are clear. The surrounding soft tissues and osseous structures are unremarkable. IMPRESSION: 1. No acute intracranial hemorrhage. 2. No CT findings of territorial ischemia. HS:Y
[2024-04-07 19:31] LABS: Alanine Aminotransferase 119 U/L (7-40); Albumin 2.7 g/dL (3.2-4.8); Aspartate Aminotransferase 53 U/L (13-40); Bilirubin, Total 2.1 mg/dL (0.2-1.0); Blood Urea Nitrogen 41 mg/dL (9-23); Carbon Dioxide 17 mmol/L (20-31); Chloride 115 mmol/L (98-107); Total Protein 5.5 g/dL (5.7-8.2)
[2024-04-07 20:41] VITALS: PULSE 109; RESP 16; O2SAT 100
[2024-04-07] MEDS: SODIUM CHLORIDE 0.9% 1,000 ML IV ONE (22:00)
[2024-04-07] MEDS: MAGIC MOUTHWASH 55 ML SUSP MT SCH (22:00)
[2024-04-07] MEDS: ONDANSETRON HCL 4 MG/2 ML VIAL IV ONE (22:07)
[2024-04-07] MEDS: MORPHINE SULFATE 4 MG/ML SYR/VIAL IV ONE (22:08)
[2024-04-07 22:21] LABS: Urine Bacteria MOD /hpf (None Seen); Urine Blood 2+ /uL (Negative); Urine Clarity Ex.Turbid (Clear); Urine Color Light-Orange (Yellow); Urine Protein, UAD 1+ (Negative); Urine Specific Gravity 1.017 (1.001-1.035); Urine Squamous Epithelial Cell FEW /hpf (<5); Urine Urobilinogen Normal (Negative); Urine WBC 564 /hpf (0 - 5); Urine WBC Clumps PRESENT /hpf (None Seen); Urine pH 5.5 (5.0-9.0)
[2024-04-08] VITALS (9 sets, daily range): BP systolic 90–113; BP diastolic 45–65; PULSE 105–115; RESP 10–18; TEMP 98; O2SAT 95–98
[2024-04-08 01:07] LABS: Basophils # (auto) 0 10 ^3/uL (0-0.2); Eosinophils # (auto) 0 10 ^3/uL (0-0.8); Hemoglobin 8.2 g/dL (12.2-16.2); Neutrophils # (auto) 5.5 10 ^3/uL (1.6-8.6); Nucleated Red Blood Cells % 0.1 %; White Blood Cell 6.6 10^3/uL (4.4-10.8)
[2024-04-08 01:09] LABS: Basophils % (auto) 0.1 % (0.0-2.0); Eosinophils % (auto) 0.2 % (0.0-7.0); Hematocrit 26.5 % (36.0-46.0); Lymphocytes # (auto) 0.5 10 ^3/uL (0.4-5.4); Lymphocytes % (auto) 7.3 % (10.0-50.0); Mean Corpuscular Hemoglobin 31.5 pg (28.0-32.0); Mean Corpuscular Volume 101.7 fL (80.0-100.0); Monocytes # (auto) 0.5 10 ^3/uL (0-1.3); Monocytes % (auto) 8.3 % (0.0-12.0); Neutrophils % (auto) 84.1 % (37.0-80.0); Platelet Count (auto) 478 10^3/uL (140-450); Red Blood Cells 2.61 10^6/uL (4.0-5.20)
[2024-04-08 01:13] LABS: Red Cell Distribution Width 23.6 % (11.8-14.3)
[2024-04-08 01:24] LABS: Alkaline Phosphatase 94 U/L (46-116); Anion Gap 12 (5-15); Potassium 3.7 mmol/L (3.5-5.1); Sodium 143 mmol/L (136-145)
[2024-04-08 01:27] LABS: Thyroid Stimulating Hormone 2.23 uIU/mL (0.55-4.78)
[2024-04-08 01:30] LABS: Alanine Aminotransferase 105 U/L (7-40); Albumin 2.5 g/dL (3.2-4.8); Aspartate Aminotransferase 48 U/L (13-40); Blood Urea Nitrogen 35 mg/dL (9-23); Calcium 8.3 mg/dL (8.7-10.4); Carbon Dioxide 13 mmol/L (20-31); Chloride 118 mmol/L (98-107); Glucose 126 mg/dL (74-106); Total Protein 5.2 g/dL (5.7-8.2)
[2024-04-08] MEDS: PANTOPRAZOLE 40 MG/10 ML VIAL INJ IV ONE (02:30)
[2024-04-08] MEDS: DOXYCYCLINE 100MG/250ML 250 ML IV SCH (02:31)
[2024-04-08] MEDS: ACCU-CHEK COMFORT CURVE STRIP VI SCH (04:00)
[2024-04-08] MEDS: SODIUM CHLORIDE 0.9% 1,000 ML IV SCH (04:28)
[2024-04-08] MEDS: InsuLIN REG 1unit/0.01ml Soln (100units/ml) SC SCH (04:43)
--- NOTE | 2024-04-08 05:15 | DVHHPRES ---
History of Present Illness Resident Creating Document: FABIAN ADAMES RESIDENT History of Present Illness Patient is a 73-year-old female with a past medical history Alzheimer's disease, heart failure with reduced ejection fraction, stroke, type 2 diabetes mellitus, hypertension, osteoporosis described below came to the ED with a chief complaint of worsening mental status for the last 7 days. History was obtained building consultant from patient's son geraldo who reports that at baseline patient is alert place and person and follows commands but since the last 1 week since she got more a ltered with disorientation in all spheres and has not been responding to commands. He also reports patient had fever recorded 102.5F and has been clammy, has had swelling in the feet since the last 5 days. Reports that patient has on and off bilateral lower extremity swelling which goes away but this time it has not. Patient has a history of stroke and has been bed-bound for the last 3 years, with a urinary and fecal incontinence. The son reports that recently patient has a had started soaking on regular foods with the started giving her applesauce but lately she has also been gagging on the applesauce. Past medical history: Alzheimer's disease, coronary artery disease s/p CABG, heart failure with reduced ejection fraction, stroke, type 2 diabetes mellitus, hypertension, osteoporosis, DVT left lower extremity diagnosed in January 2024 Past surgical history: CABG Social history: Patient is dependent and lives with family but denies smoking, alcohol, drug use. Home medications: Amlodipine 10 mg, Eliquis 2.5 mg b.i.d., atorvastatin 40 mg, levothyroxine 75 mcg, metoprolol succinate 50 mg, pioglitazone 0.5 mg q.d., sitagliptin 50 mg q.d., Protonix 40 mg, metformin 850 mg b.i.d., insulin Novolin 70/30 20 units q.a.m. and 10 units q.p.m., aspirin 81 mg Review of Systems Review of Systems Patient does not respond to any questions. Allergies: Coded Allergies: NO KNOWN ALLERGIES (Unverified , 04/07/24) Medications Current Medications Medications Dose Ordered Sig/Gus Route Start Time Stop Time Status Last Admin Dose Admin Al Hydrox/Mg Hydrox/Simethicone 5 ml QID MT 04/07/24 22:00 Diagnostic Test (Pha) 1 strip IQ4HR 04/08/24 04:00 04/08/24 04:00 1 STRIP Insulin Human Regular IQ4HR SC 04/08/24 04:00 04/08/24 04:43 3 UNITS Dextrose 50 ml UD PRN IV 04/08/24 00:15 Doxycycline Hyclate 250 ml @ 125 mls/hr Q12H IV 04/08/24 02:15 04/08/24 02:31 125 MLS/HR Pantoprazole Sodium 40 mg DAILY IV 04/09/24 08:00 Enoxaparin Sodium 50 mg Q12HR SC 04/08/24 10:00 Sodium Chloride 1,000 ml @ 50 mls/hr Q20H IV 04/08/24 02:15 04/08/24 04:28 50 MLS/HR Cefepime HCl 50 ml @ 12.5 mls/hr Q12HR IV 04/08/24 22:00 Exam Vital Signs Vital Signs Date Time Temp Pulse Resp B/P (MAP) Pulse Ox O2 Delivery O2 Flow Rate FiO2 04/08/24 03:30 113 14 110/55 (73) 94 04/07/24 20:41 Nasal Cannula* 2 28 04/07/24 19:30 98.6 98.6 Exam Physical Examination Constitutional: GCS 11 E4 V2 M5 Gen - no pallor, no icterus, no cyanosis, no clubbing, no LAD, no edema . Skin - Patients skin is warm and dry.. HEENT - normocephalic, atraumatic, moist mucous membranes. Neck - full ROM, no LAD, no JVD Pulmonary - B/L equal air entry heard. no crackles , no wheezing. cardiovascular - normal S1,S2 heard. no murmurs heard. peripheral pulses radial 2+, pedal 2+. GI - soft abdomen. no hepatospleenomegaly. Bowel sounds normoactive Neurological - patient is disoriented in all spheres and does not follow commands. Extremities: Ulcer noted on the left lower extremity the posterior aspect below the cough with sloughing and oozing, also noted at the posterior aspect of the left heel and the lateral aspect of right ankle. Labs/Xrays Labs Test 04/08/24 04:32 04/08/24 00:40 04/07/24 22:08 04/07/24 21:30 Range/Units POC Glucose 164 H 70-106 mg/dl White Blood Count 6.6 4.4-10.8 10^3/uL Red Blood Count 2.61 L 4.0-5.20 10^6/uL Hemoglobin 8.2 L 12.2-16.2 g/dL Hematocrit 26.5 L 36.0-46.0 % Mean Corpuscular Volume 101.7 H 80.0-100.0 fL Mean Corpuscular Hemoglobin 31.5 28.0-32.0 pg Mean Corpuscular Hemoglobin Concent 31.0 L 32.0-36.0 g/dL Red Cell Distribution Width 23.6 H 11.8-14.3 % Platelet Count 478 H 140-450 10^3/uL Mean Platelet Volume 8.5 6.9-10.8 fL Neutrophils (%) (Auto) 84.1 H 37.0-80.0 % Lymphocytes (%) (Auto) 7.3 L 10.0-50.0 % Monocytes (%) (Auto) 8.3 0.0-12.0 % Eosinophils (%) (Auto) 0.2 0.0-7.0 % Basophils (%) (Auto) 0.1 0.0-2.0 % Neutrophils # (Auto) 5.5 1.6-8.6 10 ^3/uL Lymphocytes # (Auto) 0.5 0.4-5.4 10 ^3/uL Monocytes # (Auto) 0.5 0-1.3 10 ^3/uL Eosinophils # (Auto) 0 0-0.8 10 ^3/uL Basophils # (Auto) 0 0-0.2 10 ^3/uL Nucleated Red Blood Cells 0.1 % Reticulocyte Count (auto) 3.26 H 0.5-1.5 % Sodium Level 143 136-145 mmol/L Potassium Level 3.7 3.5-5.1 mmol/L Chloride Level 118 H 98-107 mmol/L Carbon Dioxide Level 13 L 20-31 mmol/L Anion Gap 12 5-15 Blood Urea Nitrogen 35 H 9-23 mg/dL Creatinine 1.06 H 0.550-1.02 mg/dL Glomerular Filtration Rate Calc 55 >90 mL/min BUN/Creatinine Ratio 33.0 H 10.0-20.0 Serum Glucose 126 H 74-106 mg/dL Lactic Acid Level 1.6 0.4-2.0 mmol/L Calcium Level 8.3 L 8.7-10.4 mg/dL Total Bilirubin 2.0 H 0.2-1.0 mg/dL Aspartate Amino Transferase (AST) 48 H 13-40 U/L Alanine Aminotransferase (ALT) 105 H 7-40 U/L Alkaline Phosphatase 94 46-116 U/L Ammonia 24 11-32 umol/L Lactate Dehydrogenase 193 120-246 U/L Total Protein 5.2 L 5.7-8.2 g/dL Albumin 2.5 L 3.2-4.8 g/dL Vitamin B12 Level 8780 H 211-911 pg/mL Thyroid Stimulating Hormone (TSH) 2.23 0.55-4.78 uIU/mL Troponin I High Sensitivity 18 </=34 ng/L Urine Color Light-orange Yellow Urine Clarity Ex.turbid Clear Urine pH 5.5 5.0-9.0 Urine Specific [place] 1.017 1.001-1.035 Urine Protein 1+ H Negative Urine Ketones Trace Negative Urine Blood 2+ H Negative /uL Urine Nitrite 2+ H Negative Urine Bilirubin Negative Negative Urine Urobilinogen Normal Negative mg/dL Urine Leukocyte Esterase 3+ Negative /uL Urine RBC 16 0 - 4 /hpf Urine WBC 564 0 - 5 /hpf Urine WBC Clumps Present None Seen /hpf Urine Squamous Epithelial Cells Few <5 /hpf Urine Bacteria Mod H None Seen /hpf Urine Glucose Normal Normal mg/dL Test 04/07/24 18:46 Range/Units B-Type Natriuretic Peptide 183.49 0-100 pg/mL Assessment/Plan Assessment/Plan # acute metabolic encephalopathy likely due to UTI # acute non-anion gap metabolic acidosis - CT head shows no acute intracranial hemorrhage or territorial ischemia - vitamin B12 levels normal - ammonia WNL - TSH 2.23 # Sepsis likely due to ?UTI ? Wound infection # UTI likely acute cystitis # Pressure ulcers - WBCs 6.6 with elevated neutrophils - wound culture sent - urine bacteria culture pending - blood cultures pending - MRSA screen pending - podiatry consulted - bilateral lower extremity arterial duplex pending - urine cultures from previous admission under a different account showed growth of Salmonella species sensitive to ampicillin, nitrofurantoin, Bactrim - patient is started on cefepime 1 g IV q.12 hours and doxycycline 100 mg IV q.12 hours for broad-spectrum coverage of Pseudomonas and MRSA # acute on chronic heart failure with a moderately reduced ejection fraction # h/o hypertensive heart disease - echo from 01/18/24 on admission under a different account showed LVEF 40% with global wall hypokinesia and grade 1 diastolic dysfunction - at home patient was on amlodipine, aspirin, atorvastatin, metoprolol succinate, lisinopril - all oral medication held until swallow evaluation is done. - patient is continued on fluids at 50 mL/hour and Lasix held until the blood pressure is stable given the setting of sepsis and giving heart failure medication tank the patient's blood pressure. # uncontrolled type 2 diabetes mellitus with the hyperglycemia - HbA1c 7.4% in January - on mild insulin sliding scale with a goal blood glucose 140-180 mg/dl # hypothyroidism - at home on levothyroxine 75 mcg - oral medication had under swallow eval # h/o DVT - diagnosed in January, left lower extremity DVT - with the patient was NPO, on enoxaparin therapeutic dose. PUD prophylaxis: Protonix 40 mg IV daily Goals of care discussed with the patient's son Geraldo for over 25 minutes. Full code Plan discussed with Dr. Rivera Plan discussed with: Son Esmer Orders Orders - FABIAN ADAMES RESIDENT Procedure Category Date Status Time Admit ADMIT 04/08/24 Transmitted 00:13 Oxygen By Nasal RT 04/08/24 Transmitted Cannula 00:13 Stat Ekg For Chest [facility] 04/08/24 In Process Pain 00:13 Notify Of Changes [facility] 04/08/24 In Process From Base 00:13 Sales And Service Associate For [facility] 04/08/24 In Process 24 Hours 00:13 Emergency Dysrhythmia [facility] 04/08/24 In Process Protocol 00:13 Urine Bacterial ROSS 04/08/24 In Process Culture 00:13 * Wound Consult CONS 04/08/24 Transmitted Wound Culture W/ Gs ROSS 04/08/24 In Process 00:13 Blood Culture ROSS 04/08/24 In Process 00:13 Code Status CODE 04/08/24 Transmitted 00:13 Glucose Blood PHA 04/08/24 In Process (Accu-Chek Comfort 04:00 Insulin R (Human) PHA 04/08/24 In Process (Insulin R) 04:00 Dextrose 50% Syringe PHA 04/08/24 In Process 00:15 Acute Hepatitis Panel LAB 04/08/24 In Process 00:13 Covid19 Antigen Sari LAB 04/08/24 Logged Rapid Influenza A&B LAB 04/08/24 Logged 00:13 * Swallow Request ST 04/08/24 Transmitted 00:13 *Podiatry Consult CONS 04/08/24 Transmitted Musson(Dvmg) 02:02 Doxycycline PHA 04/08/24 In Process 100mg/250ml 02:15 Bilat Low Ext Art US 04/08/24 Logged Duplex 02:02 Pantoprazole PHA 04/09/24 In Process (Protonix) 08:00 Mrsa Screen ROSS 04/08/24 Uncollected 02:02 Enoxaparin Sodium PHA 04/08/24 In Process (Lovenox) 10:00 Sodium Chloride 0.9% PHA 04/08/24 In Process 02:15 Cefepime 1gm/ 50ml PHA 04/08/24 In Process (Maxipime 1gm/50ml) 02:15 Npo (Nothing By DIET 04/08/24 Transmitted Mouth) Diet Breakfast Electrocardigram EKG 04/08/24 Logged 02:19 Cefepime 1gm/ 50ml PHA 04/08/24 In Process (Maxipime 1gm/50ml) 22:00 Date of Service: Apr 08, 2024 Billing Provider: NIURKA RIVERA MD [facility],FABIAN RESIDENT Apr 08, 2024 05:15
[2024-04-08] MEDS: CEFEPIME 1GM/ 50ML 50 ML IV ONE (05:54)
[2024-04-08 07:56] LABS: Rapid Influenza A Negative (Negative); Rapid Influenza B Negative (Negative)
[2024-04-08 07:58] LABS: COVID19 ANTIGEN SOFIA FIA NEGATIVE (NEGATIVE)
[2024-04-08] MEDS: ENOXAPARIN SOD 100 MG/1 ML SYRINGE SC SCH (09:39)
--- NOTE | 2024-04-08 09:39 | DVH ---
BILATERAL Lower Extremity Arterial Duplex Date: 04/08/2024 08:35 AM Clinical History: Lower extremity ulcers Comparison: None Technique: Duplex Doppler evaluation including color Doppler and spectral/pulsed waveform analysis of the lower extremity arteries was performed. Finding: RIGHT: Peak systolic velocities are as follows: MAINTENANCE DISPATCHER 66 cm/s Deep femoral 165 cm/s SFA proximal 67 cm/s SFA mid-portion 40 cm/s SFA distal 25 cm/s Popliteal 19 cm/s Posterior tibial not visualized due to bandages. Dorsalis pedis not visualized due to bandages. The waveforms are monophasic with diastolic flow. LEFT: Peak systolic velocities are as follows: MAINTENANCE DISPATCHER 47 cm/s Deep femoral 64 cm/s SFA proximal 63 cm/s SFA mid-portion 50 cm/s SFA distal 49 cm/s Popliteal 33 cm/s Posterior tibial not visualized due to bandages. Dorsalis pedis not visualized due to bandages. The waveforms are monophasic with diastolic flow. REFERENCE VALUES, [facility]) vascular Imaging Lab Criteria: Peak systolic velocity ranges (in cm/sec) are as follows: <150 cm/s - <20 % stenosis 150-200 cm/s - 20-49% stenosis 200-300 cm/s - 50-75% stenosis >300 cm/s -> 75% stenosis IMPRESSION: Peripheral vascular disease in the bilateral lower extremity as evidenced by monophasic waveforms. E valuation is limited as bilateral posterior tibial arteries and dorsalis pedis arteries are not visua lized due to external bandages.
[2024-04-08] MEDS ORDERED: CEFEPIME 1GM/ 50ML 50 ML IV SCH (10:00)
--- NOTE | 2024-04-08 11:11 | DVHNC2 ---
Date of Service: Apr 08, 2024 Billing Provider: TAMMI GREENE MD Cardiology Common Codes: PROCEDURE ONLY (POCUS) Coding Comment Comment POCUS done and interpreted by me Cardiac, technically difficult, hyperdynamic, grossly normal MV AV, cannot locate IVC Pulmonary no PLEF, no b lines Neck JVD below clavicle level TAMMI GREENE MD Apr 08, 2024 11:11
[2024-04-08] MEDS: SODIUM CHLORIDE 0.9% 500 ML IV ONE (11:25)
[2024-04-08] MEDS: SODIUM CHLORIDE 0.9% 1,000 ML IV ONE (11:25)
--- NOTE | 2024-04-08 11:30 | DVH ---
CLINICAL INDICATION: R/O FX TECHNIQUE: XY L HAND 2V XRAY Comparison: None FINDINGS/IMPRESSION: : There is no evidence of acute fracture or dislocation. Diffuse osteopenia. Subcentimeter ossific density in the inferior soft tissues of the distal forearm may represent hetero topic ossification or change related to prior trauma or phlebolith.
--- NOTE | 2024-04-08 11:31 | DVH ---
CLINICAL INDICATION: R/O FX TECHNIQUE: XY L ELBOW 3 VIEW XRAY Comparison: None FINDINGS/IMPRESSION: : There is no evidence of acute fracture or dislocation. Diffuse subcutaneous soft-tissue edema and swelling. Small anterior joint effusion.
[2024-04-08 12:05] LABS: Phosphorus 2.6 mg/dL (2.4-5.1)
[2024-04-08 12:12] LABS: Magnesium 1.1 mg/dL (1.6-2.6)
--- NOTE | 2024-04-08 14:28 | DVHPNRES ---
Progress Note Date Seen: Apr 08, 2024 Resident Creating Document: HARSHAL DE DIOS RESIDENT Medical Necessity Reason Pt with a Central, PICC or Fol: Yes The following are medically ne: PICC Line Subjective Review of Systems Patient is 73 years old female with past medical history of coronary artery disease, s/p CABG, CVA with right-sided weakness, DVT, hypertension, diabetes mellitus type 2, hyperlipidemia, history of pressure ulcer, osteoporosis 14 by the EMS due to worsening mental status for last 7 days. History was mostly gathered from patient's family members son Janusz. As per son patient usually responds to conversation but last 6 7 days has been came in poor appetite, altered mental status, agitated, , not drinking and eating well. Patient also had fever up to 102.5F at home. Patient also has a bilateral leg swelling who is usually goes away but lately is not getting any better. Patient has a history of stroke and has been bed-bound for the last 3 years, with a urinary and fecal incontinence. Patient's son also reported lately patient has been having difficulty in swallowing food, making some gurgling noise. Patient's lab workup revealed anemia with hemoglobin 8.6, thrombocytosis with platelets 520, serum creatinine 1.13, elevated bilirubin 2.1, elevated AST 53, elevated ALT 119, hypomagnesemia 1.1, BNP was mildly elevated 183, urinalysis revealed nitrite 2+, leukocyte esterase 3+, WBC 564, RBC 16, bacteria . Patient tested negative for COVID-19 and influenza type A and B. CXR revealed no acute disease, CT- head revealed-Patchy periventricular and subcortical white matter hypoattenuation is nonspecific but may be related to small vessel ischemic disease. Lower extremity arterial Doppler revealed- Peripheral vascular disease in the bilateral lower extremity as evidenced by monophasic waveforms. Evaluation is limited as bilateral posterior tibial arteries and dorsalis pedis arteries are not visualized due to external bandages. X-ray left elbow Revealed-There is no evidence of acute fracture or dislocation. Diffuse subcutaneous soft-tissue edema and swelling. Small anterior joint effusion. X-ray left hand- There is no evidence of acute fracture or dislocation. Diffuse osteopenia. Subcentimeter ossific density in the inferior soft tissues of the distal forearm may represent heterotopic ossification or change related to prior trauma or phlebolith. Past medical history: Alzheimer's disease, coronary artery disease s/p CABG, heart failure with reduced ejection fraction, stroke, type 2 diabetes mellitus, hypertension, osteoporosis, DVT left lower extremity diagnosed in January 2024 Past surgical history: CABG Social history: Patient is dependent and lives with family but denies smoking, alcohol, drug use. Home medications: Amlodipine 10 mg, Eliquis 2.5 mg b.i.d., atorvastatin 40 mg, levothyroxine 75 mcg, metoprolol succinate 50 mg, pioglitazone 0.5 mg q.d., sitagliptin 50 mg q.d., Protonix 40 mg, metformin 850 mg b.i.d., insulin Novolin 70/30 20 units q.a.m. and 10 units q.p.m., aspirin 81 mg Allergy- NKDA Patient was seen today at the bedside. Cardiovascular- deny acute chest pain or shortness of breath or cough or palpitation Respiratory- denies cough or short of breath or wheezing Gastrointestinal- denies any rectal bleeding, nausea or vomiting Musculoskeletal-denies acute joint swelling or tenderness or redness Neurological- denies acute dysarthria, dysphagia, change in vision Psychiatry- denies depression or SI or HI Skin- denies acute rash or purpura Patient was seen today for clinical evaluation. Labs and chart reviewed. Patient with dehydration, IV normal saline bolus 1 L was given after POCUS was done. Systems Development Manager spoke to patient's son patricia RAPP and answered his questions. Objective vital signs Vital Sign Date Time Temp Pulse Resp B/P (MAP) Pulse Ox O2 Delivery O2 Flow Rate FiO2 04/08/24 12:00 91 04/08/24 10:51 101/52 (68) 04/08/24 08:24 Nasal Cannula* 2 28 04/08/24 07:17 16 94 04/07/24 19:30 98.6 98.6 Total Intake and Output 04/07/24 04/07/24 04/08/24 15:00 23:00 07:00 Intake Total 60 ml 1362.5 ml Balance 60 ml 1362.5 ml medications Current Medications Medications Dose Ordered Sig/Gus Route Start Time Stop Time Status Last Admin Dose Admin Al Hydrox/Mg Hydrox/Simethicone 5 ml QID MT 04/07/24 22:00 Diagnostic Test (Pha) 1 strip IQ4HR 04/08/24 04:00 04/08/24 12:21 1 STRIP Insulin Human Regular IQ4HR SC 04/08/24 04:00 04/08/24 04:43 3 UNITS Dextrose 50 ml UD PRN IV 04/08/24 00:15 Doxycycline Hyclate 250 ml @ 125 mls/hr Q12H IV 04/08/24 02:15 04/08/24 02:31 125 MLS/HR Pantoprazole Sodium 40 mg DAILY IV 04/09/24 08:00 Enoxaparin Sodium 50 mg Q12HR SC 04/08/24 10:00 04/08/24 09:39 50 MG Cefepime HCl 50 ml @ 12.5 mls/hr Q12HR IV 04/08/24 22:00 Magnesium Sulfate/ Dextrose 100 ml @ 100 mls/hr Q1HR IV 04/08/24 14:00 04/08/24 15:59 Examination General examination- HEENT- PEERLA, no acute nasal discharge Cardiovascular- S1-S2 audible, rate and rhythm regular, no murmur Respiratory- CTAB, no wheeze or rhonchi Gastrointestinal-nontender, bowel sound+. Nondistended Musculoskeletal-no acute joint swelling or tenderness or redness# Lower extremity- Neurological- cranial nerves intact, no acute dysarthria or dysphagia Psychiatry- denies depression or SI or HI Skin- no acute rash or purpura laboratory and microbiology Laboratory Tests 04/08/24 00:40 Test 04/08/24 00:40 Range/Units Serum Glucose 126 H 74-106 mg/dL Microbiology Date/Time Source Procedure Growth Status 04/07/24 21:30 Urine - [place] Urine Culture - Preliminary Resulted Problem List/Assessment/Plan Problem List/Assessment/Plan Sepsis likely due to UTI Metabolic encephalopathy Acute hypoxic respiratory failure likely due to acute on chronic HFrEF Hypertensive heart disease Uncontrolled diabetes mellitus Atrial fibrillation Thyroidism Moderate to severe anemia Likely anemia of chronic disease Transaminitis likely due to congestion of the liver Thrombocytosis Coronary artery disease, status post CABG CVA with right-sided weakness Hyperlipidemia Pressure wound Pending blood culture, urine culture and respiratory culture Continue cefepime 1 g IV q.12 hours Doxycycline 100 mg IV hours Lovenox 50 mg subcutaneously q.12 hours Continue insulin sliding scale as ordered Continue pantoprazole 40 mg IV daily Goals of care/advance care planning; FULL CODE; discussed with the patient >15 minutes PUD prophylaxis: Pantoprazole DVT prophylaxis: Lovenox Plan discussed with Ash Walker, nursing staff, patient Total time spent on patient evaluation, chart review, assessment and plan, discussion discussion >30 minutes Plan discussed with: Patient Plan discussed with: Patient, Son, Other (RN) My Orders My Orders Orders - HARSHAL DE DIOS Procedure Category Date Status Time Vitamin B1 (Thiamine) LAB 04/08/24 In Process 11:04 Transfer Orders XFER 04/08/24 Transmitted 11:10 Abg W/ Co-Ox RT 04/08/24 Logged 11:16 Urine Sodium LAB 04/08/24 Logged 11:16 Osmolality Urine LAB 04/08/24 Logged 11:18 Drug Screen LAB 04/08/24 Logged 11:20 Urine LAB 04/08/24 Logged Protein/Creatinine 11:16 Urine Potassium LAB 04/08/24 Logged 11:16 Date of Service: Apr 08, 2024 Billing Provider: TAMMI GREENE MD Common Visit Codes: [id number] INP/OBS CARE(HIGH) HARSHAL DE DIOS RESIDENT Apr 08, 2024 14:28 TAMMI GREENE MD Apr 08, 2024 23:39
[2024-04-08] MEDS: MAGNESIUM SULFATE 1GM/100ML 100 ML IV SCH (14:38)
[2024-04-08] MEDS: POTASSIUM PHOSPHATE 44 MEQ in D5W 5% 250 ML IV ONE (17:37)
[2024-04-08] MEDS: THIAMINE 100mg/ml INJ (200mg/2ml VIAL) IM ONE (17:37)
[2024-04-08] MEDS: CEFEPIME 1GM/ 50ML 50 ML IV SCH (21:55)
[2024-04-09] VITALS (15 sets, daily range): BP systolic 91–145; BP diastolic 35–63; PULSE 105–116; RESP 9–18; TEMP 98.4–98.7; O2SAT 93–100
[2024-04-09] MEDS: ONDANSETRON HCL 4 MG/2 ML VIAL IV PRN (01:34)
[2024-04-09 07:27] LABS: Basophils # (auto) 0 10 ^3/uL (0-0.2); Eosinophils # (auto) 0 10 ^3/uL (0-0.8); Mean Corpuscular Volume 98.3 fL (80.0-100.0); White Blood Cell 6.9 10^3/uL (4.4-10.8)
[2024-04-09 07:31] LABS: Basophils % (auto) 0.1 % (0.0-2.0); Eosinophils % (auto) 0.1 % (0.0-7.0); Hematocrit 24.3 % (36.0-46.0); Lymphocytes # (auto) 0.5 10 ^3/uL (0.4-5.4); Lymphocytes % (auto) 6.8 % (10.0-50.0); Mean Corpuscular Hemoglobin 32.1 pg (28.0-32.0); Mean Corpuscular Hgb Conc. 32.7 g/dL (32.0-36.0); Monocytes # (auto) 0.5 10 ^3/uL (0-1.3); Monocytes % (auto) 7.2 % (0.0-12.0); Neutrophils % (auto) 85.8 % (37.0-80.0); Nucleated Red Blood Cells % 0.5 %; Platelet Count (auto) 427 10^3/uL (140-450); Red Blood Cells 2.48 10^6/uL (4.0-5.20)
[2024-04-09 07:47] LABS: Alkaline Phosphatase 90 U/L (46-116); Anion Gap 16 (5-15); BUN/Creatinine Ratio 29.2 (10.0-20.0); Magnesium 1.7 mg/dL (1.6-2.6); Potassium 4.8 mmol/L (3.5-5.1)
[2024-04-09 07:57] LABS: Alanine Aminotransferase 80 U/L (7-40); Albumin 2.4 g/dL (3.2-4.8); Aspartate Aminotransferase 48 U/L (13-40); Bilirubin, Total 2.4 mg/dL (0.2-1.0); Blood Urea Nitrogen 42 mg/dL (9-23); Calcium 7.8 mg/dL (8.7-10.4); Carbon Dioxide 11 mmol/L (20-31); Chloride 118 mmol/L (98-107); Glucose 151 mg/dL (74-106); Sodium 145 mmol/L (136-145); Total Protein 5.1 g/dL (5.7-8.2)
[2024-04-09 09:17] LABS: Opiate Scree,Urine Neg (NEGATIVE); Phencyclidine Screen, Urine Neg (NEGATIVE)
[2024-04-09 09:31] LABS: Amphetamine Screen, Urine Neg (NEGATIVE); Barbiturate Scree,Urine Neg (NEGATIVE); Benzodiazephine Screen, Urine Neg (NEGATIVE); Cannabinoid Screen, Urine Neg (NEGATIVE); Cocaine Screen, Urine Neg (NEGATIVE)
[2024-04-09] MEDS: PANTOPRAZOLE 40 MG/10 ML VIAL INJ IV SCH (09:59)
[2024-04-09] MEDS: MAGNESIUM SULFATE 1GM/100ML 100 ML IV ONE (10:22)
[2024-04-09] MEDS: SODIUM CHLORIDE 0.9% 1,000 ML IV ONE (10:30)
[2024-04-09] MEDS ORDERED: MORPHINE SULFATE INJ 2 MG/ml SYRG IV PRN (11:00)
[2024-04-09] MEDS: SODIUM CHLORIDE 0.9% 500 ML IV ONE (11:34)
--- NOTE | 2024-04-09 14:29 | DVHINCON2 ---
Date Seen: Apr 09, 2024 Referring Physician MD Ashley resident Reason for Consultation CHF, AFib History of Present Illness This is a 73-year-old female patient who presents to emergency room with multiple chief complaints. At the time of assessment, the patient is confused and only alert to self. Called patient's next of kin, son-Orlando, as listed in chart. Son is able to provide history. Per the patient's son, he began to notice the patient having symptoms of altered level of mentation, fever, clammy skin, decreased appetite, and lower extremity edema for two days prior to emergency room arrival. He reports worsening of all symptoms so he decided to call emergency medical services and the patient was brought to the emergency room for further evaluation. Cardiology has now been consulted for CHF and atrial fibrillation. Initial twelve lead electrocardiogram reveals sinus tachycardia with PVCs and artifact seen in multiple leads. Initial BNP level of 183.49pg/mL. Serial troponin levels have been negative. Significant past medical history includes coronary artery disease status post triple-vessel CABG, congestive heart failure, hypertension, hyperlipidemia, chronic kidney disease, CVA with right-sided deficit, type 2 diabetes mellitus, osteoporosis, dementia, and bed-bound. It is worth noting that the patient takes Eliquis at home. Asked patient's son Orlando if patient has a previous history of atrial fibrill ation, patient's son is not sure. The patient's son reports that she does not follow up with a bakery helper in the outpatient setting. Past Medical History Past medical history reviewed. No other significant than mentioned above. Past Surgical History Triple-vessel CABG Family History Family history reviewed. Social History Denies the use of tobacco, alcohol or illicit drugs. Allergies: Coded Allergies: NO KNOWN ALLERGIES (Unverified , 04/07/24) Home Meds Reported Medications Fenofibrate (Fenofibrate) 160 Mg Tab, 1 TAB PO DAILY for 90 Days, #90 04/08/24 Apixaban Base (ELIQUIS) 2.5 Mg Tab, 1 TAB PO BID for 30 Days, #60 04/08/24 Captopril (Captopril) 25 Mg Tab, 1 TAB PO DAILY for 90 Days, #90 04/08/24 Citalopram Hydrobromide (Citalopram Hydrobromide) 20 Mg Tab, 1 TAB PO BID for 30 Days, #60 04/08/24 Pantoprazole Sodium Sesquihydr (Protonix) 40 Mg Tab, 1 TAB PO DAILY for 30 Days, #30 04/08/24 Atorvastatin Calcium (Lipitor) 40 Mg Tab, 1 TAB PO DAILY for 30 Days, #30 04/08/24 Amlodipine Besylate (Amlodipine Besylate) 10 Mg Tab, 1 TAB PO DAILY for 30 Days, #30 04/08/24 Gabapentin (Gabapentin) 100 Mg Cap, 1 CAP PO TID for 30 Days, #90 04/08/24 Sitagliptin Phosphate (Januvia) 50 Mg Tab, 1 TAB PO DAILY for 30 Days, #30 04/08/24 Metformin Hydrochloride (Metformin Hcl) 850 Mg Tab, 1 TAB PO BID for 30 Days, # 60 04/08/24 Home Meds Home medications reviewed. Current Medications Current Medications Medications (Trade) Dose Ordered Sig/Gus Route PRN Reason Start Time Stop Time Status Last Admin Pantoprazole Sodium (Protonix) 40 mg DAILY IV 04/09/24 08:00 04/09/24 09:59 Cefepime HCl 50 ml @ 12.5 mls/hr Q12HR IV 04/08/24 22:00 04/09/24 11:34 Ondansetron HCl (Zofran) 4 mg Q6HPRN PRN IV NAUSEA / VOMITING 04/09/24 01:15 04/09/24 09:59 Morphine Sulfate 1 mg Q6HP PRN IV SEVERE PAIN (7-10 PAIN SCALE) 04/09/24 11:00 Review of Systems Constitutional: Generalized weakness, decreased appetite Ears, Nose, & Throat: No symptom reported Eyes: No symptom reported Neurological: Altered level of mentation Pulmonary/Respiratory: No symptoms reported Cardiovascular: No symptom reported Gastrointestinal: No symptom reported Genitourinary: No symptom reported Musculoskeletal: No symptom reported Skin: No symptom reported Psychiatric: No symptom reported Endocrine: No symptom reported Hematologic/Lymphatic: No symptom reported Vital Signs Vital Signs Date Time Temp Pulse Resp B/P (MAP) Pulse Ox O2 Delivery O2 Flow Rate FiO2 04/09/24 11:08 104 04/09/24 09:30 18 109/46 (67) 100 04/09/24 07:30 Nasal Cannula* 2 28 04/09/24 07:30 97.7 97.7 Physical Exam General Appearance: Restless Pulmonary/Respiratory: Clear, bilateral breaths sounds. Cardiovascular/Chest: Regular rate and rhythm. Peripheral Pulses: 2+ Radial (R). 2+ Radial (L). 2+ Pedal (R). 2+ Pedal (L) Abdominal Exam: Normal bowel sounds. Ankle Exam: 1+ pitting edema Lower extremities: 1+ pitting edema Neuro/Mental Status: A/OX1, confused Thoughts/Psych: Deferred Appearance: No acute distress. Skin Exam: Pale, clammy. Right arm and hand weeping Labs/Diagnostic Data Labs Test 04/09/24 12:58 04/09/24 12:30 04/09/24 08:50 04/09/24 07:00 Range/Units Lactic Acid Level 1.5 0.4-2.0 mmol/L POC Glucose 113 H 70-106 mg/dl Urine Opiates Screen Neg NEGATIVE Urine Fentanyl Screen Neg NEGATIVE Urine Barbiturates Screen Neg NEGATIVE Urine Phencyclidine Screen Neg NEGATIVE Urine Amphetamines Screen Neg NEGATIVE Urine Benzodiazepines Screen Neg NEGATIVE Urine Cocaine Screen Neg NEGATIVE Urine Cannabinoids Screen Neg NEGATIVE White Blood Count 6.9 4.4-10.8 10^3/uL Red Blood Count 2.48 L 4.0-5.20 10^6/uL Hemoglobin 8.0 L 12.2-16.2 g/dL Hematocrit 24.3 L 36.0-46.0 % Mean Corpuscular Volume 98.3 80.0-100.0 fL Mean Corpuscular Hemoglobin 32.1 H 28.0-32.0 pg Mean Corpuscular Hemoglobin Concent 32.7 32.0-36.0 g/dL Red Cell Distribution Width 23.0 H 11.8-14.3 % Platelet Count 427 140-450 10^3/uL Mean Platelet Volume 8.8 6.9-10.8 fL Neutrophils (%) (Auto) 85.8 H 37.0-80.0 % Lymphocytes (%) (Auto) 6.8 L 10.0-50.0 % Monocytes (%) (Auto) 7.2 0.0-12.0 % Eosinophils (%) (Auto) 0.1 0.0-7.0 % Basophils (%) (Auto) 0.1 0.0-2.0 % Neutrophils # (Auto) 6.0 1.6-8.6 10 ^3/uL Lymphocytes # (Auto) 0.5 0.4-5.4 10 ^3/uL Monocytes # (Auto) 0.5 0-1.3 10 ^3/uL Eosinophils # (Auto) 0 0-0.8 10 ^3/uL Basophils # (Auto) 0 0-0.2 10 ^3/uL Nucleated Red Blood Cells 0.5 % Sodium Level 145 136-145 mmol/L Potassium Level 4.8 3.5-5.1 mmol/L Chloride Level 118 H 98-107 mmol/L Carbon Dioxide Level 11 L 20-31 mmol/L Anion Gap 16 H 5-15 Blood Urea Nitrogen 42 H 9-23 mg/dL Creatinine 1.44 #H 0.550-1.02 mg/dL Glomerular Filtration Rate Calc 38 >90 mL/min BUN/Creatinine Ratio 29.2 H 10.0-20.0 Serum Glucose 151 H 74-106 mg/dL Calcium Level 7.8 L 8.7-10.4 mg/dL Magnesium Level 1.7 1.6-2.6 mg/dL Total Bilirubin 2.4 H 0.2-1.0 mg/dL Aspartate Amino Transferase (AST) 48 H 13-40 U/L Alanine Aminotransferase (ALT) 80 H 7-40 U/L Alkaline Phosphatase 90 46-116 U/L Total Protein 5.1 L 5.7-8.2 g/dL Albumin 2.4 L 3.2-4.8 g/dL Lipase 19 12-53 U/L Test 04/08/24 11:38 04/08/24 11:30 04/08/24 08:53 04/08/24 06:20 Range/Units Blood Gas Specimen Type Arterial Blood Gas Sample Site Right radial Blood Gas Patient Temperature 37.0 Arterial Blood Date Drawn [id number] Arterial Blood pH 7.349 L 7.350-7.450 Arterial Blood Partial Pressure CO2 29.1 L 32.0-45.0 mmHg Arterial Blood Partial Pressure O2 94.0 83.0-108.0 mmHg Arterial Blood HCO3 15.7 L 21.0-28.0 mmol/L Arterial Blood Oxygen Saturation 96.0 94.0-98.0 % Arterial Blood Base Excess -9.0 L -2.0-3.0 mmol/L Arterial Blood Oxyhemoglobin 92.8 L 94.0-98.0 % Arterial Blood Carboxyhemoglobin 2.0 H 0.5-1.5 % Arterial Blood Methemoglobin 1.3 0.0-1.5 % Jeromy Test Yes Blood Gas Total Hemoglobin 7.20 L 12.0-16.0 g/dL Blood Gas Modality Room air FiO2 % 21.0 Phosphorus Level 2.6 2.4-5.1 mg/dL Folic Acid 5.97 >5.38 ng/mL Influenza Type A Antigen Negative Negative Influenza Type B Antigen Negative Negative SARS-CoV-2 Antigen (Rapid) Negative NEGATIVE Test 04/08/24 00:40 04/07/24 22:08 04/07/24 21:30 04/07/24 18:46 Range/Units Reticulocyte Count (auto) 3.26 H 0.5-1.5 % Hemoglobin A1c < 3.8 <5.7 % A1C Ammonia 24 11-32 umol/L Lactate Dehydrogenase 193 120-246 U/L Vitamin B12 Level 8780 H 211-911 pg/mL Thyroid Stimulating Hormone (TSH) 2.23 0.55-4.78 uIU/mL Salicylates Level < 3.0 -30 mg/dL Troponin I High Sensitivity 18 </=34 ng/L Urine Color Light-orange Yellow Urine Clarity Ex.turbid Clear Urine pH 5.5 5.0-9.0 Urine Specific [place] 1.017 1.001-1.035 Urine Protein 1+ H Negative Urine Ketones Trace Negative Urine Blood 2+ H Negative /uL Urine Nitrite 2+ H Negative Urine Bilirubin Negative Negative Urine Urobilinogen Normal Negative mg/dL Urine Leukocyte Esterase 3+ Negative /uL Urine RBC 16 0 - 4 /hpf Urine WBC 564 0 - 5 /hpf Urine WBC Clumps Present None Seen /hpf Urine Squamous Epithelial Cells Few <5 /hpf Urine Bacteria Mod H None Seen /hpf Urine Glucose Normal Normal mg/dL B-Type Natriuretic Peptide 183.49 0-100 pg/mL Microbiology Date/Time Source Procedure Growth Status 04/08/24 21:15 Nose MRSA Screen - Final Complete 04/08/24 00:40 Blood Blood Culture - Preliminary NO GROWTH AFTER 24 HOURS OF INCUBATION. Resulted 04/07/24 21:30 Urine - [place] Urine Culture - Preliminary Resulted Assessment Questionable atrial fibrillation (takes Eliquis at home) Coronary artery disease status post triple-vessel CABG Acute on chronic HFrEF, NYHA class III Sepsis Hypertension Hyperlipidemia CVA with right-sided deficit Chronic kidney disease Type 2 diabetes mellitus Transaminitis Anemia Osteoporosis Dementia Bed-bound Plan/Recommendation We will continue with the following plan/recommendations (Dr. Briscoe): * Echocardiogram to evaluate cardiac function * Previous echocardiogram on 01/18/24 found under different MRN number: [id number] shows EF 40% * Initiate GDMT for CHF as tolerated when appropriate * Hold HAIDER/ARNI/ARBs and spironolactone given increased creatinine * Hold SGLT2i at this time given reduced GFR and UTI * Initiate beta-suraj with optimal BP * Cardiac surveillance * Antibiotics per primary care team * FOBT Patient seen and examined at bedside with . Twelve lead electrocardiogram that reads "atrial fibrillation" is not discernible given that there is artifact in every lead. At this time unable to verify atrial fibrillation. After reviewing satellite project site monitor, no events of atrial fibrillation seen, patient is having lots of ectopy such as PVCs and PACs. At this time we will recommend to continue cardiac surveillance. We will also recommend to obtain a new twelve lead electrocardiogram if patient appears to go into atrial fibrillation. Thank you for allowing us to care for this patient. Please call with any questions or concerns. Critical care time spent: 44 minutes This medical document was created using an electronic medical record system with voice recognition software and computerized dictation system. Although this document has been carefully reviewed, there might still be some phonetic and typographical errors. Occasional wrong-word or ``sound-alike substitutions may have occurred due to the inherent limitations of voice recognition software. These areas are purely typographical due to imperfections of the software programs and do not reflect any compromise in the patient's medical care. Please read the chart carefully and recognize, using context, where these substitutions have occurred. Plan discussed with: Son, Other (Bedside RN) NYHA Physical activity limitations: Class3(Marked) ordinary (activity causes symtoms) Date of Service: Apr 09, 2024 Billing Provider: SHADY VARGAS Cardiology Common Codes: 85463-[id number] INP/OBS CARE (High) Cardiology Consultation Codes: [id number] CONSULT <45MIN SHADY VARGAS Apr 09, 2024 14:29
--- NOTE | 2024-04-09 15:54 | DVH ---
Procedure: CT CT AB PEL WO CON-NO ORAL OR IV 04/09/2024 02:23 PM Indication: ABD PAIN Comparison Study: None available at time of dictation. Technique: Axial images were obtained and reformatted in coronal and sagittal planes. All CT scans at this medical facility are performed using dose modulation techniques as appropriate t o a performed exam including the following: Automated exposure control was utilized; adjustment of th e MA and/or KV according to patient size; and use of iterative reconstruction technique. CT Dose: CTDI volume is 10.96 mGy. Dose-length product is 617.72 mGy*cm FINDINGS: Lower Chest: Bibasilar subsegmental atelectasis is noted. Heart is normal in size. Coronary artery c alcification/ stenting noted. Hepatobiliary: Unremarkable. Spleen: Unremarkable. Pancreas: Unremarkable. Adrenal Glands: Unremarkable. tract: The kidneys are normal in size bilaterally without hydronephrosis or nephrolithiasis. A 0.7 cm angiomyolipoma is seen in the upper pole of left kidney. Bladder is decompressed with a Lozada cat heter and cannot be adequately assessed. GI tract: The stomach is grossly normal in appearance. Mild gaseous small bowel distention in the low er abdomen without mural thickening. No transition point is seen. Scattered colonic diverticula are n oted without evidence of diverticulitis. The appendix is not visualized. No inflammatory change is n oted in the right lower quadrant. Lymphatics: No mesenteric, retroperitoneal or periportal lymphadenopathy. Vasculature: The abdominal aorta is normal in caliber. Diffuse calcified plaque formation is noted. M oderate stenosis of the celiac trunk and SMA due to calcified plaque formation. Pelvic Organs: Unremarkable Bones/soft tissues: Midline fat containing lower pelvic wall hernia measuring 3 cm in transverse at t he neck site of hernia measuring 6.5 x 5 cm with suggestion of prior herniorrhaphy recurrent hernia. Diffuse fatty muscle atrophy. Diffuse subcutaneous fat stranding in the bilateral upper thighs. Other: None. IMPRESSION: 1. Mild gaseous small bowel distention in the abdomen without mural thickening or transitional point likely reflect ileus. No evidence of obstruction. 2. Severe atherosclerotic disease. 3. Diffuse fatty muscle atrophy. 4. Subcutaneous edema in the bilateral upper thighs. 5. The urinary bladder is decompressed by Lozada catheter. 6. Moderate-size midline lower pelvic wall fat containing hernia with suggestion of prior repair.
--- NOTE | 2024-04-09 17:17 | DVHPNRES ---
Progress Note Date Seen: Apr 09, 2024 Resident Creating Document: HARSHAL DE DIOS RESIDENT Medical Necessity Reason Pt with a Central, PICC or Fol: Yes The following are medically ne: PICC Line Subjective Review of Systems Patient is 73 years old female with past medical history of coronary artery disease, s/p CABG, CVA with right-sided weakness, DVT, hypertension, diabetes mellitus type 2, hyperlipidemia, history of pressure ulcer, osteoporosis 14 by the EMS due to worsening mental status for last 7 days. History was mostly gathered from patient's family members son Janusz. As per son patient usually responds to conversation but last 6 7 days has been came in poor appetite, altered mental status, agitated, , not drinking and eating well. Patient also had fever up to 102.5F at home. Patient also has a bilateral leg swelling who is usually goes away but lately is not getting any better. Patient has a history of stroke and has been bed-bound for the last 3 years, with a urinary and fecal incontinence. Patient's son also reported lately patient has been having difficulty in swallowing food, making some gurgling noise. Patient's lab workup revealed anemia with hemoglobin 8.6, thrombocytosis with platelets 520, serum creatinine 1.13, elevated bilirubin 2.1, elevated AST 53, elevated ALT 119, hypomagnesemia 1.1, BNP was mildly elevated 183, urinalysis revealed nitrite 2+, leukocyte esterase 3+, WBC 564, RBC 16, bacteria . Patient tested negative for COVID-19 and influenza type A and B. CXR revealed no acute disease, CT- head revealed-Patchy periventricular and subcortical white matter hypoattenuation is nonspecific but may be related to small vessel ischemic disease. Lower extremity arterial Doppler revealed- Peripheral vascular disease in the bilateral lower extremity as evidenced by monophasic waveforms. Evaluation is limited as bilateral posterior tibial arteries and dorsalis pedis arteries are not visualized due to external bandages. X-ray left elbow Revealed-There is no evidence of acute fracture or dislocation. Diffuse subcutaneous soft-tissue edema and swelling. Small anterior joint effusion. X-ray left hand- There is no evidence of acute fracture or dislocation. Diffuse osteopenia. Subcentimeter ossific density in the inferior soft tissues of the distal forearm may represent heterotopic ossification or change related to prior trauma or phlebolith. CT abdomen and pelvis without contrast revealed- Mild gaseous small bowel distention in the abdomen without mural thickening or transitional point likely reflect ileus. No evidence of obstruction. Severe atherosclerotic disease. Diffuse fatty muscle atrophy. Subcutaneous edema in the bilateral upper thighs. The urinary bladder is decompressed by Lozada catheter. Moderate-size midline lower pelvic wall fat containing hernia with suggestion of prior repair. Past medical history: Alzheimer's disease, coronary artery disease s/p CABG, heart failure with reduced ejection fraction, stroke, type 2 diabetes mellitus, hypertension, osteoporosis, DVT left lower extremity diagnosed in January 2024 Past surgical history: CABG Social history: Patient is dependent and lives with family but denies smoking, alcohol, drug use. Home medications: Amlodipine 10 mg, Eliquis 2.5 mg b.i.d., atorvastatin 40 mg, levothyroxine 75 mcg, metoprolol succinate 50 mg, pioglitazone 0.5 mg q.d., sitagliptin 50 mg q.d., Protonix 40 mg, metformin 850 mg b.i.d., insulin Novolin 70/30 20 units q.a.m. and 10 units q.p.m., aspirin 81 mg Allergy- NKDA Patient was seen today at the bedside. Cardiovascular- deny acute chest pain or shortness of breath or cough or palpitation Respiratory- denies cough or short of breath or wheezing Gastrointestinal- denies any rectal bleeding, nausea or vomiting Musculoskeletal-denies acute joint swelling or tenderness or redness Neurological- denies acute dysarthria, dysphagia, change in vision Psychiatry- denies depression or SI or HI Skin- denies acute rash or purpura Patient was seen today for clinical evaluation. Labs and chart reviewed. Patient is more awake but still with some confusion. Patient complained of abdominal pain, ordered CT abdomen without contrast for further evaluation and care. Other cardiology consult for atrial fibrillation with a history of heart failure. CT abdomen and pelvis without contrast revealed- Mild gaseous small bowel distention in the abdomen without mural thickening or transitional point likely reflect ileus. No evidence of obstruction. Severe atherosclerotic disease. Diffuse fatty muscle atrophy. Subcutaneous edema in the bilateral upper thighs. The urinary bladder is decompressed by Lozada catheter. Moderate-size midline lower pelvic wall fat containing hernia with suggestion of prior repair. Spoke to patient's son Orlando Moon, discussed patient's current medical condition and plan of care. Objective vital signs Vital Sign Date Time Temp Pulse Resp B/P (MAP) Pulse Ox O2 Delivery O2 Flow Rate FiO2 04/09/24 16:44 108 04/09/24 09:30 18 109/46 (67) 100 04/09/24 07:30 Nasal Cannula* 2 28 04/09/24 07:30 97.7 97.7 Total Intake and Output 04/08/24 04/08/24 04/09/24 15:00 23:00 07:00 Intake Total 155.0 ml 405.0 ml Output Total 400 ml 50 ml Balance -245.0 ml 355.0 ml medications Current Medications Medications Dose Ordered Sig/Gus Route Start Time Stop Time Status Last Admin Dose Admin Al Hydrox/Mg Hydrox/Simethicone 5 ml QID MT 04/07/24 22:00 Diagnostic Test (Pha) 1 strip IQ4HR 04/08/24 04:00 04/09/24 12:31 1 STRIP Insulin Human Regular IQ4HR SC 04/08/24 04:00 04/09/24 09:59 2 UNITS Dextrose 50 ml UD PRN IV 04/08/24 00:15 Doxycycline Hyclate 250 ml @ 125 mls/hr Q12H IV 04/08/24 02:15 04/09/24 14:54 125 MLS/HR Pantoprazole Sodium 40 mg DAILY IV 04/09/24 08:00 04/09/24 09:59 40 MG Enoxaparin Sodium 50 mg Q12HR SC 04/08/24 10:00 04/09/24 10:31 50 MG Cefepime HCl 50 ml @ 12.5 mls/hr Q12HR IV 04/08/24 22:00 04/09/24 11:34 12.5 MLS/HR Ondansetron HCl 4 mg Q6HPRN PRN IV 04/09/24 01:15 04/09/24 09:59 4 MG Morphine Sulfate 1 mg Q6HP PRN IV 04/09/24 11:00 Examination General examination- HEENT- PEERLA, no acute nasal discharge Cardiovascular- S1-S2 audible, rate and rhythm regular, no murmur Respiratory- CTAB, no wheeze or rhonchi Gastrointestinal-nontender, bowel sound+. Nondistended Musculoskeletal-no acute joint swelling or tenderness or redness# Lower extremity- bilateral leg edema, Neurological- cranial nerves intact, no acute dysarthria or dysphagia Psychiatry- denies depression or SI or HI Skin- no acute rash or purpura laboratory and microbiology Laboratory Tests 04/09/24 07:00 Test 04/09/24 07:00 Range/Units Serum Glucose 151 H 74-106 mg/dL Microbiology Date/Time Source Procedure Growth Status 04/08/24 21:15 Nose MRSA Screen - Final Complete 04/08/24 00:40 Blood Blood Culture - Preliminary NO GROWTH AFTER 24 HOURS OF INCUBATION. Resulted 04/07/24 21:30 Urine - [place] Urine Culture - Preliminary Resulted Problem List/Assessment/Plan Problem List/Assessment/Plan Sepsis likely due to UTI Metabolic encephalopathy Acute hypoxic respiratory failure likely due to acute on chronic HFrEF Hypertensive heart disease Uncontrolled diabetes mellitus Atrial fibrillation Thyroidism Moderate to severe anemia Likely anemia of chronic disease Transaminitis likely due to congestion of the liver Thrombocytosis Coronary artery disease, status post CABG CVA with right-sided weakness Hyperlipidemia Pressure wound Previous echocardiogram on 01/18/24 found under different MRN number: [id number] shows EF 40% Continue cefepime 1 g IV q.12 hours Doxycycline 100 mg IV hours Lovenox 50 mg subcutaneously q.12 hours Continue insulin sliding scale as ordered Continue pantoprazole 40 mg IV daily Goals of care/advance care planning; FULL CODE; discussed with the patient >15 minutes PUD prophylaxis: Pantoprazole DVT prophylaxis: Lovenox Plan discussed with Dr. Vail, nursing staff, patient Total time spent on patient evaluation, chart review, assessment and plan, discussion discussion >30 minutes Plan discussed with: Patient Plan discussed with: Patient, Son, Other My Orders My Orders Orders - HARSHAL DE DIOS RESIDENT Procedure Category Date Status Time Morphine Sulfate PHA 04/09/24 In Process Injection 11:00 * Cardiology Consult CONS 04/09/24 Transmitted 11:41 Ct Ab Pel Wo Con-No CT 04/09/24 Resulted Oral Or Iv 13:42 Notify Provider NOTICE 04/09/24 Transmitted Malnutrition 16:20 Nutritional NOURISH 04/09/24 Transmitted Supplements 16:20 Dietary NOTICE 04/09/24 Transmitted Recommendations 16:20 Dietary Evaluation Review Recommendations by RD: Protein Supplementation Comments: 1) If NPO > 7 days, consider EN/TPN to meet at least 75% of estimated daily energy needs. 2) Initiate Lucas @ 1 pk bid when medically feasible. 3) Advance diet to 60g CCHO/cardiac when medically feasible, pending ANODE WORKER approval. 4) Continue to monitor nutrition-related labs. Expected Outcomes/Goals: 1) diet to advance 2) appetite and labs to improve 3) f/u in 3-5 days Date of Service: Apr 09, 2024 Billing Provider: JESSICA VAIL MD Common Visit Codes: [id number] INP/OBS CARE(HIGH) HARSHAL DE DIOS RESIDENT Apr 09, 2024 17:17 JESSICA VAIL MD Apr 09, 2024 19:19
--- NOTE | 2024-04-09 18:51 | DVH ---
EXAM: US BI LAT UPPER DVT Clinical History: EDEMA, BRUISE Comparison: None Technique: Duplex Doppler evaluation of the deep venous systems of both upper extremities from the internal jugu lar to the ulnar veins including color Doppler and spectral/pulsed waveform analysis was performed. Findings: Normal compressibility and color Doppler flow is seen in the bilateral upper extremity veins includin g the internal jugular, subclavian, axillary, brachial, radial and ulnar veins. Superficial venous thrombi in the right cephalic and basilic veins. Impression: 1. No sonographic evidence for bilateral upper extremity DVT. 2. Superficial venous thrombi in the right cephalic and basilic veins.
--- NOTE | 2024-04-09 22:33 | DVHINCON2 ---
Date Seen: Apr 09, 2024 Referring Physician MD Ashley resident Reason for Consultation CHF, AFib History of Present Illness This is a 73-year-old female with a past medical history includes coronary artery disease status post triple-vessel CABG, congestive heart failure, hypertension, hyperlipidemia, chronic kidney disease, CVA with right-sided deficit, type 2 diabetes mellitus, osteoporosis, dementia, and bed-bound who pre sented to ED on 04/07 with multiple complaints. At the time of assessment, the patient is confused and only alert to self. Called patient's next of kin, son- Orlando, as listed in chart. Son is able to provide history. Per the patient's son, he began to notice the patient having symptoms of altered level of mentation, fever, clammy skin, decreased appetite, and lower extremity edema for two days prior to emergency room arrival. It is worth noting that the patient takes Eliquis at home. Asked patient's son Orlando if patient has a previous history of atrial fibrillation, patient's son is not sure. The patient's son reports that she does not follow up with a typesetting machine operator/tender in the outpatient setting. He reports worsening of all symptoms so he decided to call emergency medical services and the patient was brought to the emergency room for further evaluation. Cardiology has now been consulted for CHF and atrial fibrillation. Initial twelve lead electrocardiogram reveals sinus tachycardia with PVCs and artifact seen in multiple leads. Initial BNP level of 183.49pg/mL Serial troponin levels have been negative. Chest x-ray shows NAD. CT head is negative for bleed. Patient was admitted to the hospital. I am asked to consult on this patient. Allergies: Coded Allergies: NO KNOWN ALLERGIES (Unverified , 04/07/24) Home Meds Reported Medications Fenofibrate (Fenofibrate) 160 Mg Tab, 1 TAB PO DAILY for 90 Days, #90 04/08/24 Apixaban Base (ELIQUIS) 2.5 Mg Tab, 1 TAB PO BID for 30 Days, #60 04/08/24 Captopril (Captopril) 25 Mg Tab, 1 TAB PO DAILY for 90 Days, #90 04/08/24 Citalopram Hydrobromide (Citalopram Hydrobromide) 20 Mg Tab, 1 TAB PO BID for 30 Days, #60 04/08/24 Pantoprazole Sodium Sesquihydr (Protonix) 40 Mg Tab, 1 TAB PO DAILY for 30 Days, #30 04/08/24 Atorvastatin Calcium (Lipitor) 40 Mg Tab, 1 TAB PO DAILY for 30 Days, #30 04/08/24 Amlodipine Besylate (Amlodipine Besylate) 10 Mg Tab, 1 TAB PO DAILY for 30 Days, #30 04/08/24 Gabapentin (Gabapentin) 100 Mg Cap, 1 CAP PO TID for 30 Days, #90 04/08/24 Sitagliptin Phosphate (Januvia) 50 Mg Tab, 1 TAB PO DAILY for 30 Days, #30 04/08/24 Metformin Hydrochloride (Metformin Hcl) 850 Mg Tab, 1 TAB PO BID for 30 Days, #60 04/08/24 Current Medications Current Medications Medications (Trade) Dose Ordered Sig/Gus Route PRN Reason Start Time Stop Time Status Last Admin Pantoprazole Sodium (Protonix) 40 mg DAILY IV 04/09/24 08:00 04/09/24 09:59 Ondansetron HCl (Zofran) 4 mg Q6HPRN PRN IV NAUSEA / VOMITING 04/09/24 01:15 04/09/24 09:59 Morphine Sulfate 1 mg Q6HP PRN IV SEVERE PAIN (7-10 PAIN SCALE) 04/09/24 11:00 Review of Systems Constitutional: Generalized weakness, decreased appetite Ears, Nose, & Throat: No symptom reported Eyes: No symptom reported Neurological: Altered level of mentation Pulmonary/Respiratory: No symptoms reported Cardiovascular: No symptom reported Gastrointestinal: No symptom reported Genitourinary: No symptom reported Musculoskeletal: No symptom reported Skin: No symptom reported Psychiatric: No symptom reported Endocrine: No symptom reported Hematologic/Lymphatic: No symptom reported Vital Signs Vital Signs Date Time Temp Pulse Resp B/P (MAP) Pulse Ox O2 Delivery O2 Flow Rate FiO2 04/09/24 21:00 110 17 92/47 (62) 98 04/09/24 07:30 Nasal Cannula* 2 28 04/09/24 07:30 97.7 97.7 Physical Exam GENERAL: Awake, alert, oriented x1. Restless. LUNGS: Clear. CARDIOVASCULAR: Heart sounds are good. ABDOMEN: Soft. EXT: +1 pitting edema. SKIN: Pale, clammy. Right arm and hand weeping. Labs/Diagnostic Data Labs Test 04/09/24 12:58 04/09/24 12:30 04/09/24 08:50 04/09/24 07:00 Range/Units Lactic Acid Level 1.5 0.4-2.0 mmol/L POC Glucose 113 H 70-106 mg/dl Urine Opiates Screen Neg NEGATIVE Urine Fentanyl Screen Neg NEGATIVE Urine Barbiturates Screen Neg NEGATIVE Urine Phencyclidine Screen Neg NEGATIVE Urine Amphetamines Screen Neg NEGATIVE Urine Benzodiazepines Screen Neg NEGATIVE Urine Cocaine Screen Neg NEGATIVE Urine Cannabinoids Screen Neg NEGATIVE White Blood Count 6.9 4.4-10.8 10^3/uL Red Blood Count 2.48 L 4.0-5.20 10^6/uL Hemoglobin 8.0 L 12.2-16.2 g/dL Hematocrit 24.3 L 36.0-46.0 % Mean Corpuscular Volume 98.3 80.0-100.0 fL Mean Corpuscular Hemoglobin 32.1 H 28.0-32.0 pg Mean Corpuscular Hemoglobin Concent 32.7 32.0-36.0 g/dL Red Cell Distribution Width 23.0 H 11.8-14.3 % Platelet Count 427 140-450 10^3/uL Mean Platelet Volume 8.8 6.9-10.8 fL Neutrophils (%) (Auto) 85.8 H 37.0-80.0 % Lymphocytes (%) (Auto) 6.8 L 10.0-50.0 % Monocytes (%) (Auto) 7.2 0.0-12.0 % Eosinophils (%) (Auto) 0.1 0.0-7.0 % Basophils (%) (Auto) 0.1 0.0-2.0 % Neutrophils # (Auto) 6.0 1.6-8.6 10 ^3/uL Lymphocytes # (Auto) 0.5 0.4-5.4 10 ^3/uL Monocytes # (Auto) 0.5 0-1.3 10 ^3/uL Eosinophils # (Auto) 0 0-0.8 10 ^3/uL Basophils # (Auto) 0 0-0.2 10 ^3/uL Nucleated Red Blood Cells 0.5 % Sodium Level 145 136-145 mmol/L Potassium Level 4.8 3.5-5.1 mmol/L Chloride Level 118 H 98-107 mmol/L Carbon Dioxide Level 11 L 20-31 mmol/L Anion Gap 16 H 5-15 Blood Urea Nitrogen 42 H 9-23 mg/dL Creatinine 1.44 #H 0.550-1.02 mg/dL Glomerular Filtration Rate Calc 38 >90 mL/min BUN/Creatinine Ratio 29.2 H 10.0-20.0 Serum Glucose 151 H 74-106 mg/dL Calcium Level 7.8 L 8.7-10.4 mg/dL Magnesium Level 1.7 1.6-2.6 mg/dL Total Bilirubin 2.4 H 0.2-1.0 mg/dL Aspartate Amino Transferase (AST) 48 H 13-40 U/L Alanine Aminotransferase (ALT) 80 H 7-40 U/L Alkaline Phosphatase 90 46-116 U/L Total Protein 5.1 L 5.7-8.2 g/dL Albumin 2.4 L 3.2-4.8 g/dL Lipase 19 12-53 U/L Test 04/08/24 11:38 04/08/24 11:30 04/08/24 08:53 04/08/24 06:20 Range/Units Blood Gas Specimen Type Arterial Blood Gas Sample Site Right radial Blood Gas Patient Temperature 37.0 Arterial Blood Date Drawn [id number] Arterial Blood pH 7.349 L 7.350-7.450 Arterial Blood Partial Pressure CO2 29.1 L 32.0-45.0 mmHg Arterial Blood Partial Pressure O2 94.0 83.0-108.0 mmHg Arterial Blood HCO3 15.7 L 21.0-28.0 mmol/L Arterial Blood Oxygen Saturation 96.0 94.0-98.0 % Arterial Blood Base Excess -9.0 L -2.0-3.0 mmol/L Arterial Blood Oxyhemoglobin 92.8 L 94.0-98.0 % Arterial Blood Carboxyhemoglobin 2.0 H 0.5-1.5 % Arterial Blood Methemoglobin 1.3 0.0-1.5 % Jeromy Test Yes Blood Gas Total Hemoglobin 7.20 L 12.0-16.0 g/dL Blood Gas Modality Room air FiO2 % 21.0 Phosphorus Level 2.6 2.4-5.1 mg/dL Folic Acid 5.97 >5.38 ng/mL Influenza Type A Antigen Negative Negative Influenza Type B Antigen Negative Negative SARS-CoV-2 Antigen (Rapid) Negative NEGATIVE Test 04/08/24 00:40 04/07/24 22:08 04/07/24 21:30 04/07/24 18:46 Range/Units Reticulocyte Count (auto) 3.26 H 0.5-1.5 % Hemoglobin A1c < 3.8 <5.7 % A1C Ammonia 24 11-32 umol/L Lactate Dehydrogenase 193 120-246 U/L Vitamin B12 Level 8780 H 211-911 pg/mL Thyroid Stimulating Hormone (TSH) 2.23 0.55-4.78 uIU/mL Salicylates Level < 3.0 -30 mg/dL Troponin I High Sensitivity 18 </=34 ng/L Urine Color Light-orange Yellow Urine Clarity Ex.turbid Clear Urine pH 5.5 5.0-9.0 Urine Specific [place] 1.017 1.001-1.035 Urine Protein 1+ H Negative Urine Ketones Trace Negative Urine Blood 2+ H Negative /uL Urine Nitrite 2+ H Negative Urine Bilirubin Negative Negative Urine Urobilinogen Normal Negative mg/dL Urine Leukocyte Esterase 3+ Negative /uL Urine RBC 16 0 - 4 /hpf Urine WBC 564 0 - 5 /hpf Urine WBC Clumps Present None Seen /hpf Urine Squamous Epithelial Cells Few <5 /hpf Urine Bacteria Mod H None Seen /hpf Urine Glucose Normal Normal mg/dL B-Type Natriuretic Peptide 183.49 0-100 pg/mL Microbiology Date/Time Source Procedure Growth Status 04/08/24 21:15 Nose MRSA Screen - Final Complete 04/08/24 00:40 Blood Blood Culture - Preliminary NO GROWTH AFTER 24 HOURS OF INCUBATION. Resulted 04/07/24 21:30 Urine - [place] Urine Culture - Preliminary Resulted Assessment Questionable atrial fibrillation (takes Eliquis at home). Coronary artery disease status post triple-vessel CABG. Acute on chronic HFrEF, NYHA class III. Sepsis. Hypertension. Hyperlipidemia. CVA with right-sided deficit. Chronic kidney disease. Type 2 diabetes mellitus. Transaminitis. Anemia. Osteoporosis. Dementia. Bed-bound. Plan/Recommendation I agree with your ongoing assessment and care of plan. Patient has been seen by Lisette Roberts NP on my behalf, her and I discussed the plan with the patient. Echocardiogram to evaluate cardiac function. Previous echocardiogram on 01/18/24 found under different MRN number: [id number] shows EF 40%. Initiate GDMT for CHF as tolerated when appropriate. Hold HAIDER/ARNI/ARBs and spironolactone given increased creatinine. Hold SGLT2i at this time given reduced GFR and UTI. Initiate beta-suraj with optimal BP. Cardiac surveillance. Antibiotics per primary care team. FOBT. Additional plan as per the hospital course. Plan discussed with: Patient Date of Service: Apr 09, 2024 Billing Provider: JONNA MAGANA MD Cardiology Common Codes: [id number] INP/OBS CARE (High) Cardiology Consultation Codes: [id number] CONSULT <45MIN JONNA MAGANA MD Apr 09, 2024 22:20
[2024-04-09] MEDS: NOREPINEPHRINE 8 MG/250ML KIT 250 ML IV ONE (22:35)
--- NOTE | 2024-04-09 23:28 | DVH ---
CHEST RADIOGRAPH Indication: Post arterial line placement Technique: Single frontal view of the chest was obtained Comparison: XY CHEST PORTABLE on DOS: 04/07/24 Findings/ IMPRESSION: Right subclavian catheter with tip projects terminating in the right atrium. Postsurgical changes of mediastinum. No active cardiopulmonary disease.
[2024-04-09] MEDS: NOREPINEPHRINE 8 MG/250ML KIT 250 ML IV SCH (23:35)
[2024-04-10] MEDS: HALOPERIDOL LACTATE 5 MG/ML INJ VIAL IM ONE (02:56)
[2024-04-10 03:06] LABS: Basophils # (auto) 0 10 ^3/uL (0-0.2); Basophils % (auto) 0.2 % (0.0-2.0); Eosinophils # (auto) 0 10 ^3/uL (0-0.8); Lymphocytes # (auto) 0.5 10 ^3/uL (0.4-5.4); Monocytes # (auto) 0.5 10 ^3/uL (0-1.3)
[2024-04-10 03:08] LABS: Hematocrit 22.2 % (36.0-46.0); Lymphocytes % (auto) 7.1 % (10.0-50.0); Mean Corpuscular Hemoglobin 31.5 pg (28.0-32.0); Mean Corpuscular Hgb Conc. 31.4 g/dL (32.0-36.0); Mean Corpuscular Volume 100.3 fL (80.0-100.0); Neutrophils # (auto) 6.7 10 ^3/uL (1.6-8.6); Neutrophils % (auto) 86.7 % (37.0-80.0); Nucleated Red Blood Cells % 0.7 %; Platelet Count (auto) 405 10^3/uL (140-450); Red Blood Cells 2.21 10^6/uL (4.0-5.20); White Blood Cell 7.7 10^3/uL (4.4-10.8)
[2024-04-10 03:14] LABS: Red Cell Distribution Width 23.5 % (11.8-14.3)
[2024-04-10 03:24] LABS: Alkaline Phosphatase 83 U/L (46-116); Anion Gap 16.00001 (5-15); BUN/Creatinine Ratio 29.3 (10.0-20.0); Magnesium,Therapeutic 1.87 mg/dL (4.0-7.1); Potassium 4.1 mmol/L (3.5-5.1)
[2024-04-10 04:00] LABS: Alanine Aminotransferase 66 U/L (7-40); Albumin 2.2 g/dL (3.2-4.8); Aspartate Aminotransferase 48 U/L (13-40); Bilirubin, Total 2.5 mg/dL (0.2-1.0); Blood Urea Nitrogen 41 mg/dL (9-23); Calcium 7.2 mg/dL (8.7-10.4); Chloride 121 mmol/L (98-107); Glucose 127 mg/dL (74-106); Sodium 147 mmol/L (136-145); Total Protein 4.7 g/dL (5.7-8.2)
[2024-04-10 04:01] LABS: Carbon Dioxide < 10 mmol/L (20-31)
[2024-04-10 04:37] LABS: Base Excess -13.2 mmol/L (-2.0-3.0)
[2024-04-10 06:35] VITALS: BP 102/53; PULSE 101; RESP 16; TEMP 98
[2024-04-10 07:00] VITALS: BP 119/64; PULSE 109; RESP 15; TEMP 97.7
[2024-04-10 07:30] VITALS: PULSE 103; RESP 18; O2SAT 100
[2024-04-10 09:21] VITALS: BP 119/62; PULSE 109; RESP 18; TEMP 98.2
[2024-04-10] MEDS: SODIUM CHLORIDE 0.9% 1,000 ML IV ONE (09:30)
[2024-04-10 09:36] VITALS: BP 118/62; PULSE 106; RESP 17; TEMP 99.1
[2024-04-10 10:33] LABS: Hepatitis A Ab IgM Negative; Hepatitis B Core IgM Negative (Negative); Hepatitis B Surface Antigen Negative (Negative); Hepatitis C Antibody Negative (Negative)
[2024-04-10 11:12] LABS: Protein, Urine 100.4 mg/dL (1-14)
[2024-04-10] MEDS: SODIUM BICARB 50mEq/50ml Vial 100 ML in D5W 5% 1,000 ML IV ONE (11:12)
[2024-04-10 11:14] LABS: Creatinine, Urine 48.67 mg/dL (30.0-125.0); Urine Protein/Creatinine Ratio 2.06
[2024-04-10 11:25] LABS: Basophils # (auto) 0 10 ^3/uL (0-0.2); Basophils % (auto) 0.4 % (0.0-2.0); Eosinophils # (auto) 0 10 ^3/uL (0-0.8); Eosinophils % (auto) 0.1 % (0.0-7.0); Hemoglobin 9.4 g/dL (12.2-16.2); Lymphocytes # (auto) 0.5 10 ^3/uL (0.4-5.4); Lymphocytes % (auto) 5.9 % (10.0-50.0); Mean Corpuscular Hgb Conc. 31.5 g/dL (32.0-36.0); Mean Corpuscular Volume 98.4 fL (80.0-100.0); Monocytes # (auto) 0.4 10 ^3/uL (0-1.3); Monocytes % (auto) 5.2 % (0.0-12.0); Neutrophils # (auto) 7.1 10 ^3/uL (1.6-8.6); Neutrophils % (auto) 88.4 % (37.0-80.0); Nucleated Red Blood Cells % 1.2 %; Platelet Count (auto) 367 10^3/uL (140-450); Red Blood Cells 3.04 10^6/uL (4.0-5.20); Red Cell Distribution Width 21.1 % (11.8-14.3); White Blood Cell 8.1 10^3/uL (4.4-10.8)
[2024-04-10] MEDS: LINEZOLID 600MG/300ML 300 ML IV SCH (11:44)
[2024-04-10 12:00] LABS: Alkaline Phosphatase 82 U/L (46-116); Anion Gap 14.00001 (5-15); BUN/Creatinine Ratio 30.8 (10.0-20.0)
[2024-04-10 12:09] LABS: Alanine Aminotransferase 64 U/L (7-40); Albumin 2.1 g/dL (3.2-4.8); Aspartate Aminotransferase 48 U/L (13-40); Bilirubin, Total 2.6 mg/dL (0.2-1.0); Blood Urea Nitrogen 44 mg/dL (9-23); Calcium 6.8 mg/dL (8.7-10.4); Chloride 124 mmol/L (98-107); Glucose 137 mg/dL (74-106); Sodium 148 mmol/L (136-145); Total Protein 4.3 g/dL (5.7-8.2)
[2024-04-10 12:13] LABS: Carbon Dioxide < 10 mmol/L (20-31)
--- NOTE | 2024-04-10 12:16 | DVHINCON2 ---
Date of service: Apr 10, 2024 Reason for Consultation MELVINA History of Present Illness 73-year-old female history of dementia, hypertension, CAD, no previous kidney history. Presents to the hospital with change in mental state. Patient's ER course is notable for hypotension requiring pressors. Patient has sepsis protocol initiated. Nephrology consulted due to abnormal labs. Upon my evaluation ER patient is currently on Levophed drip Allergies: Coded Allergies: NO KNOWN ALLERGIES (Unverified , 04/07/24) Home Meds Reported Medications Fenofibrate (Fenofibrate) 160 Mg Tab, 1 TAB PO DAILY for 90 Days, #90 04/08/24 Apixaban Base (ELIQUIS) 2.5 Mg Tab, 1 TAB PO BID for 30 Days, #60 04/08/24 Captopril (Captopril) 25 Mg Tab, 1 TAB PO DAILY for 90 Days, #90 04/08/24 Citalopram Hydrobromide (Citalopram Hydrobromide) 20 Mg Tab, 1 TAB PO BID for 30 Days, #60 04/08/24 Pantoprazole Sodium Sesquihydr (Protonix) 40 Mg Tab, 1 TAB PO DAILY for 30 Days, #30 04/08/24 Atorvastatin Calcium (Lipitor) 40 Mg Tab, 1 TAB PO DAILY for 30 Days, #30 04/08/24 Amlodipine Besylate (Amlodipine Besylate) 10 Mg Tab, 1 TAB PO DAILY for 30 Days, #30 04/08/24 Gabapentin (Gabapentin) 100 Mg Cap, 1 CAP PO TID for 30 Days, #90 04/08/24 Sitagliptin Phosphate (Januvia) 50 Mg Tab, 1 TAB PO DAILY for 30 Days, #30 04/08/24 Metformin Hydrochloride (Metformin Hcl) 850 Mg Tab, 1 TAB PO BID for 30 Days, #60 04/08/24 Current Medications Current Medications Medications (Trade) Dose Ordered Sig/Gus Route PRN Reason Start Time Stop Time Status Last Admin Norepinephrine Bitartrate 250 ml @ 3.75 mls/hr Q24H IV 04/09/24 23:00 04/09/24 23:35 Meropenem 50 ml @ 17 mls/hr Q12H IV 04/10/24 14:00 Linezolid 300 ml @ 150 mls/hr Q12HR IV 04/10/24 10:00 04/10/24 11:44 Review of Systems Can not obtain due to critical illness H&P Exam Vital Signs/I&O Vital Sign Date Time Temp Pulse Resp B/P (MAP) Pulse Ox O2 Delivery O2 Flow Rate FiO2 04/10/24 12:03 86/43 04/10/24 10:45 106 16 98 04/10/24 09:36 99.1 99.1 04/10/24 07:30 Nasal Cannula* 4 36 Intake and Output 04/09/24 04/10/24 19:00 07:00 Intake Total 115.6250 ml Balance 115.6250 ml IV Total 115.6250 ml Physical Exam Ill-appearing female Not intubated Alert and oriented times 0 Multiple ulcers including on the arms and sacral area Lozada catheter has minimal urinary output Labs/Diagnostic Data Labs/Diagnostic Data Laboratory Tests Test 04/10/24 11:52 04/10/24 11:10 04/10/24 10:21 04/10/24 09:44 Range/Units POC Glucose 141 H 187 H 70-106 mg/dl White Blood Count 8.1 4.4-10.8 10^3/uL Red Blood Count 3.04 L 4.0-5.20 10^6/uL Hemoglobin 9.4 #L 12.2-16.2 g/dL Hematocrit 30.0 #L 36.0-46.0 % Mean Corpuscular Volume 98.4 80.0-100.0 fL Mean Corpuscular Hemoglobin 31.0 28.0-32.0 pg Mean Corpuscular Hemoglobin Concent 31.5 L 32.0-36.0 g/dL Red Cell Distribution Width 21.1 H 11.8-14.3 % Platelet Count 367 140-450 10^3/uL Mean Platelet Volume 8.6 6.9-10.8 fL Neutrophils (%) (Auto) 88.4 H 37.0-80.0 % Lymphocytes (%) (Auto) 5.9 L 10.0-50.0 % Monocytes (%) (Auto) 5.2 0.0-12.0 % Eosinophils (%) (Auto) 0.1 0.0-7.0 % Basophils (%) (Auto) 0.4 0.0-2.0 % Neutrophils # (Auto) 7.1 1.6-8.6 10 ^3/uL Lymphocytes # (Auto) 0.5 0.4-5.4 10 ^3/uL Monocytes # (Auto) 0.4 0-1.3 10 ^3/uL Eosinophils # (Auto) 0 0-0.8 10 ^3/uL Basophils # (Auto) 0 0-0.2 10 ^3/uL Nucleated Red Blood Cells 1.2 % Sodium Level 148 H 136-145 mmol/L Potassium Level 4.0 3.5-5.1 mmol/L Chloride Level 124 H 98-107 mmol/L Carbon Dioxide Level < 10 *L 20-31 mmol/L Anion Gap 14.04615 5-15 Blood Urea Nitrogen 44 H 9-23 mg/dL Creatinine 1.43 H 0.550-1.02 mg/dL Glomerular Filtration Rate Calc 38 >90 mL/min BUN/Creatinine Ratio 30.8 H 10.0-20.0 Serum Glucose 137 H 74-106 mg/dL Calcium Level 6.8 L 8.7-10.4 mg/dL Magnesium Level 1.8 1.6-2.6 mg/dL Total Bilirubin 2.6 H 0.2-1.0 mg/dL Aspartate Amino Transferase (AST) 48 H 13-40 U/L Alanine Aminotransferase (ALT) 64 H 7-40 U/L Alkaline Phosphatase 82 46-116 U/L Total Protein 4.3 L 5.7-8.2 g/dL Albumin 2.1 L 3.2-4.8 g/dL Urine Osmolality 345 mOsm/kg Urine Creatinine 48.67 30.0-125.0 mg/dL Urine Protein/Creatinine Ratio 2.06 Urine Sodium 39 L 40-220 mmol/L Urine Potassium 41 12-62 mmol/L Urine Total Protein 100.4 H 1-14 mg/dL Test 04/10/24 08:09 04/10/24 04:38 04/10/24 04:29 04/10/24 03:41 Range/Units POC Glucose 195 H 139 H 70-106 mg/dl Lactic Acid Level 1.6 0.4-2.0 mmol/L Blood Gas Specimen Type Arterial Blood Gas Sample Site Left radial Blood Gas Patient Temperature 37.0 Arterial Blood Date Drawn [id number] Arterial Blood pH 7.419 7.350-7.450 Arterial Blood Partial Pressure CO2 15.4 *L 32.0-45.0 mmHg Arterial Blood Partial Pressure O2 88.3 83.0-108.0 mmHg Arterial Blood HCO3 9.7 L 21.0-28.0 mmol/L Arterial Blood Oxygen Saturation 95.3 94.0-98.0 % Arterial Blood Base Excess -13.2 L -2.0-3.0 mmol/L Arterial Blood Oxyhemoglobin 93.8 L 94.0-98.0 % Arterial Blood Carboxyhemoglobin 1.1 0.5-1.5 % Arterial Blood Methemoglobin 0.5 0.0-1.5 % Jeromy Test Modified Blood Gas Total Hemoglobin 7.40 L 12.0-16.0 g/dL Blood Gas Modality Room air FiO2 % 21.0 Blood Gas Critical Value Read Back Yes Blood Gas Notified Whom jhajj Blood Gas Notified Time [id number] Blood Gas Notified By Arabella dominguez rt Test 04/10/24 02:15 04/10/24 00:18 04/09/24 12:58 04/09/24 12:30 Range/Units White Blood Count 7.7 4.4-10.8 10^3/uL Red Blood Count 2.21 L 4.0-5.20 10^6/uL Hemoglobin 7.0 *L 12.2-16.2 g/dL Hematocrit 22.2 L 36.0-46.0 % Mean Corpuscular Volume 100.3 H 80.0-100.0 fL Mean Corpuscular Hemoglobin 31.5 28.0-32.0 pg Mean Corpuscular Hemoglobin Concent 31.4 L 32.0-36.0 g/dL Red Cell Distribution Width 23.5 H 11.8-14.3 % Platelet Count 405 140-450 10^3/uL Mean Platelet Volume 9.0 6.9-10.8 fL Neutrophils (%) (Auto) 86.7 H 37.0-80.0 % Lymphocytes (%) (Auto) 7.1 L 10.0-50.0 % Monocytes (%) (Auto) 6.0 0.0-12.0 % Eosinophils (%) (Auto) 0.0 0.0-7.0 % Basophils (%) (Auto) 0.2 0.0-2.0 % Neutrophils # (Auto) 6.7 1.6-8.6 10 ^3/uL Lymphocytes # (Auto) 0.5 0.4-5.4 10 ^3/uL Monocytes # (Auto) 0.5 0-1.3 10 ^3/uL Eosinophils # (Auto) 0 0-0.8 10 ^3/uL Basophils # (Auto) 0 0-0.2 10 ^3/uL Nucleated Red Blood Cells 0.7 % Sodium Level 147 H 136-145 mmol/L Potassium Level 4.1 3.5-5.1 mmol/L Chloride Level 121 H 98-107 mmol/L Carbon Dioxide Level < 10 *L 20-31 mmol/L Anion Gap 16.62110 H 5-15 Blood Urea Nitrogen 41 H 9-23 mg/dL Creatinine 1.40 H 0.550-1.02 mg/dL Glomerular Filtration Rate Calc 39 >90 mL/min BUN/Creatinine Ratio 29.3 H 10.0-20.0 Serum Glucose 127 H 74-106 mg/dL Calcium Level 7.2 L 8.7-10.4 mg/dL Magnesium Lvl (Mg Sulfate Therapy) 1.87 L 4.0-7.1 mg/dL Total Bilirubin 2.5 H 0.2-1.0 mg/dL Aspartate Amino Transferase (AST) 48 H 13-40 U/L Alanine Aminotransferase (ALT) 66 H 7-40 U/L Alkaline Phosphatase 83 46-116 U/L Total Protein 4.7 L 5.7-8.2 g/dL Albumin 2.2 L 3.2-4.8 g/dL Beta-Hydroxybutyric Acid 2.226 H < 0.4 mmol/L POC Glucose 96 113 H 70-106 mg/dl Lactic Acid Level 1.5 0.4-2.0 mmol/L Test 04/09/24 08:50 04/09/24 08:14 04/09/24 07:00 04/09/24 03:10 Range/Units Urine Opiates Screen Neg NEGATIVE Urine Fentanyl Screen Neg NEGATIVE Urine Barbiturates Screen Neg NEGATIVE Urine Phencyclidine Screen Neg NEGATIVE Urine Amphetamines Screen Neg NEGATIVE Urine Benzodiazepines Screen Neg NEGATIVE Urine Cocaine Screen Neg NEGATIVE Urine Cannabinoids Screen Neg NEGATIVE POC Glucose 158 H 149 H 70-106 mg/dl White Blood Count 6.9 4.4-10.8 10^3/uL Red Blood Count 2.48 L 4.0-5.20 10^6/uL Hemoglobin 8.0 L 12.2-16.2 g/dL Hematocrit 24.3 L 36.0-46.0 % Mean Corpuscular Volume 98.3 80.0-100.0 fL Mean Corpuscular Hemoglobin 32.1 H 28.0-32.0 pg Mean Corpuscular Hemoglobin Concent 32.7 32.0-36.0 g/dL Red Cell Distribution Width 23.0 H 11.8-14.3 % Platelet Count 427 140-450 10^3/uL Mean Platelet Volume 8.8 6.9-10.8 fL Neutrophils (%) (Auto) 85.8 H 37.0-80.0 % Lymphocytes (%) (Auto) 6.8 L 10.0-50.0 % Monocytes (%) (Auto) 7.2 0.0-12.0 % Eosinophils (%) (Auto) 0.1 0.0-7.0 % Basophils (%) (Auto) 0.1 0.0-2.0 % Neutrophils # (Auto) 6.0 1.6-8.6 10 ^3/uL Lymphocytes # (Auto) 0.5 0.4-5.4 10 ^3/uL Monocytes # (Auto) 0.5 0-1.3 10 ^3/uL Eosinophils # (Auto) 0 0-0.8 10 ^3/uL Basophils # (Auto) 0 0-0.2 10 ^3/uL Nucleated Red Blood Cells 0.5 % Sodium Level 145 136-145 mmol/L Potassium Level 4.8 3.5-5.1 mmol/L Chloride Level 118 H 98-107 mmol/L Carbon Dioxide Level 11 L 20-31 mmol/L Anion Gap 16 H 5-15 Blood Urea Nitrogen 42 H 9-23 mg/dL Creatinine 1.44 #H 0.550-1.02 mg/dL Glomerular Filtration Rate Calc 38 >90 mL/min BUN/Creatinine Ratio 29.2 H 10.0-20.0 Serum Glucose 151 H 74-106 mg/dL Calcium Level 7.8 L 8.7-10.4 mg/dL Magnesium Level 1.7 1.6-2.6 mg/dL Total Bilirubin 2.4 H 0.2-1.0 mg/dL Aspartate Amino Transferase (AST) 48 H 13-40 U/L Alanine Aminotransferase (ALT) 80 H 7-40 U/L Alkaline Phosphatase 90 46-116 U/L Total Protein 5.1 L 5.7-8.2 g/dL Albumin 2.4 L 3.2-4.8 g/dL Lipase 19 12-53 U/L Test 04/08/24 23:20 04/08/24 20:05 04/08/24 11:38 04/08/24 11:30 Range/Units POC Glucose 120 H 111 H 70-106 mg/dl Blood Gas Specimen Type Arterial Blood Gas Sample Site Right radial Blood Gas Patient Temperature 37.0 Arterial Blood Date Drawn [id number] Arterial Blood pH 7.349 L 7.350-7.450 Arterial Blood Partial Pressure CO2 29.1 L 32.0-45.0 mmHg Arterial Blood Partial Pressure O2 94.0 83.0-108.0 mmHg Arterial Blood HCO3 15.7 L 21.0-28.0 mmol/L Arterial Blood Oxygen Saturation 96.0 94.0-98.0 % Arterial Blood Base Excess -9.0 L -2.0-3.0 mmol/L Arterial Blood Oxyhemoglobin 92.8 L 94.0-98.0 % Arterial Blood Carboxyhemoglobin 2.0 H 0.5-1.5 % Arterial Blood Methemoglobin 1.3 0.0-1.5 % Jeromy Test Yes Blood Gas Total Hemoglobin 7.20 L 12.0-16.0 g/dL Blood Gas Modality Room air FiO2 % 21.0 Test 04/08/24 08:53 04/08/24 06:20 04/08/24 04:32 04/08/24 00:40 Range/Units Phosphorus Level 2.6 2.4-5.1 mg/dL Magnesium Level 1.1 L 1.6-2.6 mg/dL Folic Acid 5.97 >5.38 ng/mL Influenza Type A Antigen Negative Negative Influenza Type B Antigen Negative Negative SARS-CoV-2 Antigen (Rapid) Negative NEGATIVE POC Glucose 164 H 70-106 mg/dl White Blood Count 6.6 4.4-10.8 10^3/uL Red Blood Count 2.61 L 4.0-5.20 10^6/uL Hemoglobin 8.2 L 12.2-16.2 g/dL Hematocrit 26.5 L 36.0-46.0 % Mean Corpuscular Volume 101.7 H 80.0-100.0 fL Mean Corpuscular Hemoglobin 31.5 28.0-32.0 pg Mean Corpuscular Hemoglobin Concent 31.0 L 32.0-36.0 g/dL Red Cell Distribution Width 23.6 H 11.8-14.3 % Platelet Count 478 H 140-450 10^3/uL Mean Platelet Volume 8.5 6.9-10.8 fL Neutrophils (%) (Auto) 84.1 H 37.0-80.0 % Lymphocytes (%) (Auto) 7.3 L 10.0-50.0 % Monocytes (%) (Auto) 8.3 0.0-12.0 % Eosinophils (%) (Auto) 0.2 0.0-7.0 % Basophils (%) (Auto) 0.1 0.0-2.0 % Neutrophils # (Auto) 5.5 1.6-8.6 10 ^3/uL Lymphocytes # (Auto) 0.5 0.4-5.4 10 ^3/uL Monocytes # (Auto) 0.5 0-1.3 10 ^3/uL Eosinophils # (Auto) 0 0-0.8 10 ^3/uL Basophils # (Auto) 0 0-0.2 10 ^3/uL Nucleated Red Blood Cells 0.1 % Reticulocyte Count (auto) 3.26 H 0.5-1.5 % Sodium Level 143 136-145 mmol/L Potassium Level 3.7 3.5-5.1 mmol/L Chloride Level 118 H 98-107 mmol/L Carbon Dioxide Level 13 L 20-31 mmol/L Anion Gap 12 5-15 Blood Urea Nitrogen 35 H 9-23 mg/dL Creatinine 1.06 H 0.550-1.02 mg/dL Glomerular Filtration Rate Calc 55 >90 mL/min BUN/Creatinine Ratio 33.0 H 10.0-20.0 Serum Glucose 126 H 74-106 mg/dL Hemoglobin A1c < 3.8 <5.7 % A1C Lactic Acid Level 1.6 0.4-2.0 mmol/L Calcium Level 8.3 L 8.7-10.4 mg/dL Total Bilirubin 2.0 H 0.2-1.0 mg/dL Aspartate Amino Transferase (AST) 48 H 13-40 U/L Alanine Aminotransferase (ALT) 105 H 7-40 U/L Alkaline Phosphatase 94 46-116 U/L Ammonia 24 11-32 umol/L Lactate Dehydrogenase 193 120-246 U/L Total Protein 5.2 L 5.7-8.2 g/dL Albumin 2.5 L 3.2-4.8 g/dL Vitamin B12 Level 8780 H 211-911 pg/mL Thyroid Stimulating Hormone (TSH) 2.23 0.55-4.78 uIU/mL Salicylates Level < 3.0 -30 mg/dL Hepatitis A IgM Antibody Negative Hepatitis B Surface Antigen Negative Negative Hepatitis B Core IgM Antibody Negative Negative Hepatitis C Antibody Negative Negative Test 04/07/24 22:08 04/07/24 21:30 04/07/24 20:36 04/07/24 18:46 Range/Units Troponin I High Sensitivity 18 16 16 </=34 ng/L Urine Color Light-orange Yellow Urine Clarity Ex.turbid Clear Urine pH 5.5 5.0-9.0 Urine Specific [place] 1.017 1.001-1.035 Urine Protein 1+ H Negative Urine Ketones Trace Negative Urine Blood 2+ H Negative /uL Urine Nitrite 2+ H Negative Urine Bilirubin Negative Negative Urine Urobilinogen Normal Negative mg/dL Urine Leukocyte Esterase 3+ Negative /uL Urine RBC 16 0 - 4 /hpf Urine WBC 564 0 - 5 /hpf Urine WBC Clumps Present None Seen /hpf Urine Squamous Epithelial Cells Few <5 /hpf Urine Bacteria Mod H None Seen /hpf Urine Glucose Normal Normal mg/dL White Blood Count 5.5 4.4-10.8 10^3/uL Red Blood Count 2.72 L 4.0-5.20 10^6/uL Hemoglobin 8.6 L 12.2-16.2 g/dL Hematocrit 27.1 L 36.0-46.0 % Mean Corpuscular Volume 99.5 80.0-100.0 fL Mean Corpuscular Hemoglobin 31.5 28.0-32.0 pg Mean Corpuscular Hemoglobin Concent 31.7 L 32.0-36.0 g/dL Red Cell Distribution Width 22.9 H 11.8-14.3 % Platelet Count 520 H 140-450 10^3/uL Mean Platelet Volume 8.4 6.9-10.8 fL Neutrophils (%) (Auto) 81.8 H 37.0-80.0 % Lymphocytes (%) (Auto) 9.7 L 10.0-50.0 % Monocytes (%) (Auto) 8.4 0.0-12.0 % Eosinophils (%) (Auto) 0.0 0.0-7.0 % Basophils (%) (Auto) 0.1 0.0-2.0 % Neutrophils # (Auto) 4.5 1.6-8.6 10 ^3/uL Lymphocytes # (Auto) 0.5 0.4-5.4 10 ^3/uL Monocytes # (Auto) 0.5 0-1.3 10 ^3/uL Eosinophils # (Auto) 0 0-0.8 10 ^3/uL Basophils # (Auto) 0 0-0.2 10 ^3/uL Nucleated Red Blood Cells 0.1 % Sodium Level 143 136-145 mmol/L Potassium Level 3.5 3.5-5.1 mmol/L Chloride Level 115 H 98-107 mmol/L Carbon Dioxide Level 17 L 20-31 mmol/L Anion Gap 11 5-15 Blood Urea Nitrogen 41 H 9-23 mg/dL Creatinine 1.13 H 0.550-1.02 mg/dL Glomerular Filtration Rate Calc 51 >90 mL/min BUN/Creatinine Ratio 36.3 H 10.0-20.0 Serum Glucose 101 74-106 mg/dL Lactic Acid Level 1.7 0.4-2.0 mmol/L Calcium Level 8.9 8.7-10.4 mg/dL Total Bilirubin 2.1 H 0.2-1.0 mg/dL Aspartate Amino Transferase (AST) 53 H 13-40 U/L Alanine Aminotransferase (ALT) 119 H 7-40 U/L Alkaline Phosphatase 99 46-116 U/L B-Type Natriuretic Peptide 183.49 0-100 pg/mL Total Protein 5.5 L 5.7-8.2 g/dL Albumin 2.7 L 3.2-4.8 g/dL Microbiology Date/Time Source Procedure Growth Status 04/08/24 21:15 Nose MRSA Screen - Final Complete Assessment Acute kidney injury hemodynamically mediated in the setting of shock Septic shock Metabolic acidosis Urinary tract infection Sacral decubitus ulcers Hypoalbuminemia Currently on sodium bicarbonate drip Patient clinically needs to continue IV fluid hydration Maintain mean arterial pressure greater than 65 Avoid hypotension Continue with Levophed pressor as preferred choice Broad-spectrum antibiotics linezolid and meropenem Strict Is&Os Avoid contrast studies at this time Patient is critically ill critical care time 33 minutes Plan discussed with: GEOVANNA Guallpa M MD Apr 10, 2024 12:16
[2024-04-10] MEDS: FUROSEMIDE 20 MG/2 ML VIAL IV ONE (13:38)
--- NOTE | 2024-04-10 13:42 | DVHSR ---
APPROVED REPORT EXAM: LIMITED Two-dimensional and M-mode echocardiogram with Doppler and color Doppler. Blood Pressure: 109/64 mmHg INDICATION Evaluate Cardiac Function RISK FACTORS Height: 5' 2", Weight: 110 DIMENSIONS LVDd4.4 (3.8-5.7cm)LA (2D)4.0 (1.9-4.0cm)Aortic Root2.9 (2.0-3.7cm) LVDs3.3 (2.5-4.0cm)LA (MM) (1.9-4.0cm)Aortic Cusp Exc1.2 (1.5-2.0cm) EF (%) 55.0 (55-70%)Rt. Atrium (1.9-4.0cm)Asc. Aorta cm IVSd1.0 (0.7-1.1cm)RV (D) (1.8-2.4cm) PWd1.1 (0.7-1.1cm) Mitral Valve MitralMitral Stenosis E wave1.40m/sMV Mean GR.mmHg A wave1.10m/sMV Peak GR.mmHg E/A ratio1.32D MVAcm2 Aortic Valve Aortic ValveAortic Stenosis V11.00m/Srini Mean GR.3mmHg V21.20m/Srini Peak GR.6mmHg LVOT Diameter1.8 (1.8-2.4cm)Doppler AVA2.12cm2 AI P 1/2 Phyn491.66ms Pulmonic Valve V21.10m/s Tricuspid Valve TR Velocity2.10m/s [id number] LEFT VENTRICLE Normal left ventricular size. Systolic function is likely normal and is estimated at 55%. Study is suboptimal to evaluate for wall motion abnormalities. There is grade II diastolic dysfunction. RIGHT VENTRICLE Not well visualized. ATRIA Left atrium is of normal size. Right atrium is not well visualized. MITRAL VALVE Likely with normal structure and function. No significant mitral regurgitation. PULMONIC VALVE Likely normal. TRICUSPID VALVE Not well visualized. AORTIC VALVE Aortic valve leaflets appear to be mildly calcified. No significant stenosis. There is [id number] rate insufficiency. GREAT VESSELS Aortic root is of normal size. The proximal ascending aorta is not well visualized. PERICARDIAL EFFUSION No pericardial effusion. IVC is not visualized. Other Information Quality : Technically LimitedRhythm : Technically limited study due to patient position, patient laying on right side. Conclusion The study is technically limited. Normal left ventricular size and systolic function. Study is suboptimal to evaluate for wall motion abnormalities. The right ventricle is not well visualized. Mildly calcified aortic valve with no significant stenosis. There is [id number] insufficiency. Grade II diastolic dysfunction. PA systolic pressure could not be estimated.
[2024-04-10 13:55] LABS: Anion Gap 14 (5-15)
[2024-04-10 13:58] LABS: Calcium 6.8 mg/dL (8.7-10.4); Carbon Dioxide 11 mmol/L (20-31); Chloride 122 mmol/L (98-107); Potassium 3.4 mmol/L (3.5-5.1); Sodium 147 mmol/L (136-145)
[2024-04-10 14:00] LABS: BUN/Creatinine Ratio 26.1 (10.0-20.0)
[2024-04-10 14:01] LABS: Blood Urea Nitrogen 37 mg/dL (9-23); Glucose 218 mg/dL (74-106)
[2024-04-10] MEDS: MEROPENEM 1GM IVPB 50 ML IV SCH (14:09)
--- NOTE | 2024-04-10 17:13 | DVHPNRES ---
Progress Note Date Seen: Apr 10, 2024 Resident Creating Document: LINH RAI RESIDENT Medical Necessity Reason Pt with a Central, PICC or Fol: Yes The following are medically ne: PICC Line Subjective Review of Systems Patient is 73 years old female with past medical history of coronary artery disease, s/p CABG, CVA with right-sided weakness, DVT, hypertension, diabetes mellitus type 2, hyperlipidemia, history of pressure ulcer, osteoporosis 14 by the EMS due to worsening mental status for last 7 days. History was mostly gathered from patient's family members son Janusz. As per son patient usually responds to conversation but last 6 7 days has been came in poor appetite, altered mental status, agitated, , not drinking and eating well. Patient also had fever up to 102.5F at home. Patient also has a bilateral leg swelling who is usually goes away but lately is not getting any better. Patient has a history of stroke and has been bed-bound for the last 3 years, with a urinary and fecal incontinence. Patient's son also reported lately patient has been having difficulty in swallowing food, making some gurgling noise. Patient's lab workup revealed anemia with hemoglobin 8.6, thrombocytosis with platelets 520, serum creatinine 1.13, elevated bilirubin 2.1, elevated AST 53, elevated ALT 119, hypomagnesemia 1.1, BNP was mildly elevated 183, urinalysis revealed nitrite 2+, leukocyte esterase 3+, WBC 564, RBC 16, bacteria . Patient tested negative for COVID-19 and influenza type A and B. CXR revealed no acute disease, CT- head revealed-Patchy periventricular and subcortical white matter hypoattenuation is nonspecific but may be related to small vessel ischemic disease. Lower extremity arterial Doppler revealed- Peripheral vascular disease in the bilateral lower extremity as evidenced by monophasic waveforms. Evaluation is limited as bilateral posterior tibial arteries and dorsalis pedis arteries are not visualized due to external bandages. X-ray left elbow Revealed-There is no evidence of acute fracture or dislocation. Diffuse subcutaneous soft-tissue edema and swelling. Small anterior joint effusion. X-ray left hand- There is no evidence of acute fracture or dislocation. Diffuse osteopenia. Subcentimeter ossific density in the inferior soft tissues of the distal forearm may represent heterotopic ossification or change related to prior trauma or phlebolith. CT abdomen and pelvis without contrast revealed- Mild gaseous small bowel distention in the abdomen without mural thickening or transitional point likely reflect ileus. No evidence of obstruction. Severe atherosclerotic disease. Diffuse fatty muscle atrophy. Subcutaneous edema in the bilateral upper thighs. The urinary bladder is decompressed by Lozada catheter. Moderate-size midline lower pelvic wall fat containing hernia with suggestion of prior repair. Past medical history: Alzheimer's disease, coronary artery disease s/p CABG, heart failure with reduced ejection fraction, stroke, type 2 diabetes mellitus, hypertension, osteoporosis, DVT left lower extremity diagnosed in January 2024 Past surgical history: CABG Social history: Patient is dependent and lives with family but denies smoking, alcohol, drug use. Home medications: Amlodipine 10 mg, Eliquis 2.5 mg b.i.d., atorvastatin 40 mg, levothyroxine 75 mcg, metoprolol succinate 50 mg, pioglitazone 0.5 mg q.d., sitagliptin 50 mg q.d., Protonix 40 mg, metformin 850 mg b.i.d., insulin Novolin 70/30 20 units q.a.m. and 10 units q.p.m., aspirin 81 mg Allergy- NKDA CT abdomen and pelvis without contrast revealed- Mild gaseous small bowel distention in the abdomen without mural thickening or transitional point likely reflect ileus. No evidence of obstruction. Severe atherosclerotic disease. Diffuse fatty muscle atrophy. Subcutaneous edema in the bilateral upper thighs. The urinary bladder is decompressed by Lozada catheter. Moderate-size midline lower pelvic wall fat containing hernia with suggestion of prior repair. Patient seen and examined at bedside, patient is A&O x2, confused, no acute distress noted, diagnosed on 4 L oxygen with nasal cannula, chest radiating 96%. Objective vital signs Vital Sign Date Time Temp Pulse Resp B/P (MAP) Pulse Ox O2 Delivery O2 Flow Rate FiO2 04/10/24 16:15 97 12 91/48 (62) 96 04/10/24 09:36 99.1 99.1 04/10/24 07:30 Nasal Cannula* 4 36 Total Intake and Output 04/09/24 04/09/24 04/10/24 15:00 23:00 07:00 Intake Total 115.6250 ml Balance 115.6250 ml medications Current Medications Medications Dose Ordered Sig/Gus Route Start Time Stop Time Status Last Admin Dose Admin Al Hydrox/Mg Hydrox/Simethicone 5 ml QID MT 04/07/24 22:00 04/09/24 18:40 5 ML Diagnostic Test (Pha) 1 strip IQ4HR 04/08/24 04:00 04/10/24 16:05 1 STRIP Insulin Human Regular IQ4HR SC 04/08/24 04:00 04/10/24 16:06 3 UNITS Dextrose 50 ml UD PRN IV 04/08/24 00:15 Pantoprazole Sodium 40 mg DAILY IV 04/09/24 08:00 04/10/24 09:47 40 MG Ondansetron HCl 4 mg Q6HPRN PRN IV 04/09/24 01:15 04/09/24 09:59 4 MG Morphine Sulfate 1 mg Q6HP PRN IV 04/09/24 11:00 Norepinephrine Bitartrate 250 ml @ 3.75 mls/hr Q24H IV 04/09/24 23:00 04/09/24 23:35 3.75 MLS/HR Meropenem 50 ml @ 17 mls/hr Q12H IV 04/10/24 14:00 04/10/24 14:09 17 MLS/HR Linezolid 300 ml @ 150 mls/hr Q12HR IV 04/10/24 10:00 04/10/24 11:44 150 MLS/HR Examination GENERAL: Not in acute distress. HEENT: EOMI, Moist mucous membranes. No scleral icterus. No cervical lymphadenopathy. LUNGS: Breath sounds diminished bilaterally. No accessory muscle use. On 4 L oxygen with nasal cannula CARDIOVASCULAR: Regular rate and rhythm. No murmur. No JVD. ABDOMEN: Soft, nontender and nondistended. No palpable masses. EXTREMITIES: Bilateral pedal edema positive SKIN: No rashes or lesions. Warm. NEUROLOGIC: Alert and oriented X2. laboratory and microbiology Laboratory Tests 04/10/24 13:10 04/10/24 11:10 Test 04/10/24 13:10 Range/Units Serum Glucose 218 H 74-106 mg/dL Microbiology Date/Time Source Procedure Growth Status 04/08/24 21:15 Nose MRSA Screen - Final Complete 04/08/24 00:40 Blood Blood Culture - Preliminary NO GROWTH AFTER 48 HOURS OF INCUBATION. Resulted 04/07/24 21:30 Urine - Lozada Port Urine Culture - Final Complete Problem List/Assessment/Plan Problem List/Assessment/Plan Neurology : # Metabolic encephalopathy due to sepsis - on empiric antibiotic for sepsis # CVA with right-sided weakness # Dementia. - supportive care Cardiovascular : # Septic shock - Maintain mean arterial pressure greater than 65 # Atrial fibrillation -takes Eliquis at home - now on sinus tachycardia - hold anticoagulation for now due to severe anemia # Coronary artery disease, status post CABG # Hypertensive heart disease # Acute on chronic HFrEF, NYHA class III. -Echocardiogram on 01/18/24: EF 40% - continue guideline therapy as tolerated - continue IV hydration for shock - Lasix for one time - we will start Lasix if signs symptoms of fluid overload Respiratory : # Acute hypoxic respiratory failure likely due to acute on chronic HFrEF - patient is on 4 L oxygen with nasal cannula, saturating 96%. - titrate oxygen to keep saturation > 90% Gastrointestinal : # Transaminitis likely due to shock liver - monitor liver function Genitourinary : # Acute kidney injury hemodynamically mediated in the setting of shock # High Anion Gap Metabolic acidosis - Anion Gap was 16 - Hco3 level was : 9.6 - Currently on sodium bicarbonate drip - Patient clinically needs to continue IV fluid hydration # sepsis due to UTI - continue empiric antibiotic, meropenem and Zyvox. Infectious Disease : # septic shock due to urinary tract infection # acute cystitis - start meropenem and Zyvox - patient is on pressor, down regular pressure as tolerated Endocrine : # Thyroidism # Diabetes mellitus, Type II - HbA1C: 3.8 (04/08/2024) - continue sliding scale insulin - monitor blood glucose level Hematology : # Thrombocytosis most likely due to reactive for sepsis. - improved # Severe anemia # Likely anemia of chronic disease - hemoglobin was 7.0 - 1 unit blood transfused - monitor H and H Skin: # Sacral pressure wound stage IV, POA - wound infection - Wound Culture growing staph aureus - continue antibiotic meropenem and Zyvox Others: # Hypoalbuminemia # Osteoporosis. #Bed-bound. Nutrition : NPO for now due to failed swallow eval Prophylaxis for PUD : pantoprazole 40 mg IV daily Prophylaxis for DVT: No anticoagulation for now due to severe anemia, SCD Lines: Right subclavian central catheter: 04/09/2024 Lozada catheter: 04/07/2024 Drips: Levophed 4 Critical Care time spent 41 minutes including patient care, chart review and updating family, excluding procedure: FULL CODE. Plan discussed with Plan discussed with: Patient, Son My Orders My Orders Orders - LINH RAI RESIDENT Procedure Category Date Status Time Sodium Bicarb PHA 04/10/24 In Process 50meq/50ml Vial 10:30 *[facility]. [facility] CONS 04/10/24 Transmitted -[place] 10:17 Dietary Evaluation Review Recommendations by RD: Protein Supplementation Comments: 1) If NPO > 7 days, consider EN/TPN to meet at least 75% of estimated daily energy needs. 2) Initiate Lucas @ 1 pk bid when medically feasible. 3) Advance diet to 60g CCHO/cardiac when medically feasible, pending CORPORATE LEGAL MANAGER approval. 4) Continue to monitor nutrition-related labs. Expected Outcomes/Goals: 1) diet to advance 2) appetite and labs to improve 3) f/u in 3-5 days CC Plasma Assessment Blood Product Administration S: [id number] Date of Service: Apr 10, 2024 Billing Provider: TAMMI GREENE MD Common Visit Codes: [id number] INP/OBS CARE(HIGH) LINH RAI RESIDENT Apr 10, 2024 17:13 TAMMI GREENE MD Apr 11, 2024 08:58
[2024-04-10] MEDS: POTASSIUM CHL 20MEQ/100ML 100 ML IV ONE (17:40)
[2024-04-10] MEDS: SODIUM CHLORIDE 0.9% 1,000 ML IV SCH (17:41)
[2024-04-10 19:30] VITALS: PULSE 89; RESP 13; O2SAT 100
--- NOTE | 2024-04-10 20:21 | DVHPN2 ---
Progress Note - Dictate Date Seen: Apr 10, 2024 Medical Necessity Reason Pt with a Central, PICC or Fol: Yes The following are medically ne: PICC Line Subjective Patient was seen and valuated in follow up. Patient is A&O x2, confused. She is on 4 LPM NC. Patient had mittens placed to prevent her from pulling on IV lines and O2. HGB 9.4, HCT 30, NA 147, K 3.4, CL 122, BUN 37, QA AUTOMATION ARCHITECT 1.42. Echocardiogram showed an EF of 55%. vital signs Vital Sign Date Time Temp Pulse Resp B/P (MAP) Pulse Ox O2 Delivery O2 Flow Rate FiO2 04/10/24 16:15 97 12 91/48 (62) 96 04/10/24 09:36 99.1 99.1 04/10/24 07:30 Nasal Cannula* 4 36 Total Intake and Output 04/09/24 04/09/24 04/10/24 15:00 23:00 07:00 Intake Total 115.6250 ml Balance 115.6250 ml medications Current Medications Medications Dose Ordered Sig/Gus Route Start Time Stop Time Status Last Admin Dose Admin Al Hydrox/Mg Hydrox/Simethicone 5 ml QID MT 04/07/24 22:00 04/09/24 18:40 5 ML Diagnostic Test (Pha) 1 strip IQ4HR 04/08/24 04:00 04/10/24 16:05 1 STRIP Insulin Human Regular IQ4HR SC 04/08/24 04:00 04/10/24 16:06 3 UNITS Dextrose 50 ml UD PRN IV 04/08/24 00:15 Pantoprazole Sodium 40 mg DAILY IV 04/09/24 08:00 04/10/24 09:47 40 MG Ondansetron HCl 4 mg Q6HPRN PRN IV 04/09/24 01:15 04/09/24 09:59 4 MG Morphine Sulfate 1 mg Q6HP PRN IV 04/09/24 11:00 Norepinephrine Bitartrate 250 ml @ 3.75 mls/hr Q24H IV 04/09/24 23:00 04/09/24 23:35 3.75 MLS/HR Meropenem 50 ml @ 17 mls/hr Q12H IV 04/10/24 14:00 04/10/24 14:09 17 MLS/HR Linezolid 300 ml @ 150 mls/hr Q12HR IV 04/10/24 10:00 04/10/24 11:44 150 MLS/HR objective GENERAL: Awake, alert, oriented x2. Restless. LUNGS: Clear. CARDIOVASCULAR: Heart sounds are good. ABDOMEN: Soft. EXT: +1 pitting edema. SKIN: Pale, clammy. Right arm and hand weeping. laboratory and microbiology Laboratory Tests 04/10/24 13:10 04/10/24 11:10 Test 04/10/24 13:10 Range/Units Serum Glucose 218 H 74-106 mg/dL Problem List Questionable atrial fibrillation (takes Eliquis at home). Coronary artery disease status post triple-vessel CABG. Acute on chronic HFrEF, NYHA class III. Sepsis. Hypertension. Hyperlipidemia. CVA with right-sided deficit. Chronic kidney disease. Type 2 diabetes mellitus. Transaminitis. Anemia. Osteoporosis. Dementia. Bed-bound. Assessment/Plan Continued all current supportive medical care. IV antibiotics as ordered. GI prophylactics. Vasopressors for hemodynamic support. Additional plan as per the hospital course. Dietary Evaluation Review Recommendations by RD: Protein Supplementation Comments: 1) If NPO > 7 days, consider EN/TPN to meet at least 75% of estimated daily energy needs. 2) Initiate Lucas @ 1 pk bid when medically feasible. 3) Advance diet to 60g CCHO/cardiac when medically feasible, pending MOTTLE LAY UP OPERATOR approval. 4) Continue to monitor nutrition-related labs. Expected Outcomes/Goals: 1) diet to advance 2) appetite and labs to improve 3) f/u in 3-5 days Plan discussed with: Other CC Plasma Assessment Blood Product Administration S: [id number] JONNA MAGANA MD Apr 10, 2024 17:14
[2024-04-11] MEDS: DEXTROSE (50%) 50ML SYRG IV PRN (05:19)
[2024-04-11 05:27] LABS: Basophils # (auto) 0 10 ^3/uL (0-0.2); Basophils % (auto) 0.3 % (0.0-2.0); Eosinophils # (auto) 0 10 ^3/uL (0-0.8); Hematocrit 30.3 % (36.0-46.0); Lymphocytes # (auto) 0.9 10 ^3/uL (0.4-5.4); Lymphocytes % (auto) 10.9 % (10.0-50.0); Mean Corpuscular Volume 93.9 fL (80.0-100.0); Monocytes # (auto) 0.4 10 ^3/uL (0-1.3); Monocytes % (auto) 4.1 % (0.0-12.0); Neutrophils # (auto) 7.3 10 ^3/uL (1.6-8.6); Neutrophils % (auto) 84.7 % (37.0-80.0); Nucleated Red Blood Cells % 1.5 %; Platelet Count (auto) 358 10^3/uL (140-450); Red Blood Cells 3.23 10^6/uL (4.0-5.20); Red Cell Distribution Width 22.4 % (11.8-14.3); White Blood Cell 8.7 10^3/uL (4.4-10.8)
[2024-04-11 05:29] LABS: Anion Gap 14 (5-15)
[2024-04-11 05:34] LABS: BUN/Creatinine Ratio 27.1 (10.0-20.0)
[2024-04-11 05:36] LABS: Blood Urea Nitrogen 32 mg/dL (9-23); Calcium 6.7 mg/dL (8.7-10.4); Carbon Dioxide 14 mmol/L (20-31); Chloride 119 mmol/L (98-107); Glucose 52 mg/dL (74-106); Potassium 3.1 mmol/L (3.5-5.1); Sodium 147 mmol/L (136-145)
[2024-04-11 07:30] VITALS: PULSE 93; RESP 12; O2SAT 10
[2024-04-11 08:58] LABS: Phosphorus 2.6 mg/dL (2.4-5.1)
[2024-04-11] MEDS ORDERED: D5W/SOD CHLO 0.9% 1,000 ML IV SCH (09:00)
[2024-04-11 09:05] LABS: Magnesium 1.4 mg/dL (1.6-2.6)
[2024-04-11] MEDS: D5W/SOD CHL 0.45% 1,000 ML IV SCH (09:36)
--- NOTE | 2024-04-11 09:38 | MEDREC ---
PENDING SALE TO [facility] Intervention Section I PENDING SALE TO [facility] Intervention: Deescalate AB based on CS (THE PRELIMINARY WOUND CULTURE SHOWED MSSA AND CITROBACTER FREUNDII. PLEASE CONSIDER SWITCHING ANTIBIOTICS BASED ON CULTURE RESULTS. THE URINE CULTURE SHOWED MIXED KARAN, MAY BE CONTAMINATED. PLEASE CONSIDER A NEW URINE CULTURE IF CLINICALLY APPROPRIATE) JOSE GOULD Apr 11, 2024 09:38
[2024-04-11] MEDS: POTASSIUM CHLORIDE 40 MEQ, LIDOCAINE 1% (LOCAL ANESTH.) 4 ML in SODIUM CHL 0.9% 250 ML IV ONE (09:42)
--- NOTE | 2024-04-11 09:45 | DVHPN2 ---
Progress Note Date Seen: Apr 11, 2024 Medical Necessity Reason Pt with a Central, PICC or Fol: Yes The following are medically ne: PICC Line Subjective Patient reports: Other Review of Systems: Deferred Objective vital signs Vital Sign Date Time Temp Pulse Resp B/P (MAP) Pulse Ox O2 Delivery O2 Flow Rate FiO2 04/11/24 08:33 101/50 04/11/24 07:15 99 13 100 04/10/24 21:00 97.4 97.4 04/10/24 19:30 Nasal Cannula* 4 36 Total Intake and Output 04/10/24 04/10/24 04/11/24 15:00 23:00 07:00 Intake Total 1212.5 ml 1326 ml 991.0 ml Output Total 100 ml 400 ml 1200 ml Balance 1112.5 ml 926 ml -209.0 ml medications Current Medications Medications Dose Ordered Sig/Gus Route Start Time Stop Time Status Last Admin Dose Admin Al Hydrox/Mg Hydrox/Simethicone 5 ml QID MT 04/07/24 22:00 04/09/24 18:40 5 ML Diagnostic Test (Pha) 1 strip IQ4HR 04/08/24 04:00 04/11/24 08:08 1 STRIP Insulin Human Regular IQ4HR SC 04/08/24 04:00 04/11/24 00:55 2 UNITS Dextrose 50 ml UD PRN IV 04/08/24 00:15 04/11/24 05:19 50 ML Pantoprazole Sodium 40 mg DAILY IV 04/09/24 08:00 04/10/24 09:47 40 MG Ondansetron HCl 4 mg Q6HPRN PRN IV 04/09/24 01:15 04/09/24 09:59 4 MG Morphine Sulfate 1 mg Q6HP PRN IV 04/09/24 11:00 Norepinephrine Bitartrate 250 ml @ 3.75 mls/hr Q24H IV 04/09/24 23:00 04/11/24 03:57 3.75 MLS/HR Meropenem 50 ml @ 17 mls/hr Q12H IV 04/10/24 14:00 04/11/24 03:23 17 MLS/HR Linezolid 300 ml @ 150 mls/hr Q12HR IV 04/10/24 10:00 04/10/24 22:19 150 MLS/HR Dextrose/Sodium Chloride 1,000 ml @ 75 mls/hr [id number] IV 04/11/24 09:15 04/11/24 09:36 75 MLS/HR Examination: GENERAL:Abnormal, LUNGS:Abnormal, ABDOMEN:Abnormal, NEURO:Abnormal laboratory and microbiology Laboratory Tests 04/11/24 05:05 Test 04/11/24 05:05 Range/Units Serum Glucose 52 L 74-106 mg/dL Microbiology Date/Time Source Procedure Growth Status 04/08/24 21:15 Nose MRSA Screen - Final Complete 04/08/24 00:40 Blood Blood Culture - Preliminary NO GROWTH AFTER 72 HOURS OF INCUBATION. Resulted 04/07/24 21:30 Urine - Lozada Port Urine Culture - Final Complete Problem List/Assessment/Plan Problem List/Assessment/Plan Acute kidney injury hemodynamically mediated in the setting of shock Septic shock Metabolic acidosis Urinary tract infection Sacral decubitus ulcers Hypoalbuminemia hypernatremia hypokalemia change fluids to d5 w/ 0.45% NACL replace potassium Maintain mean arterial pressure greater than 65 Avoid hypotension Continue with Levophed pressor as preferred choice Broad-spectrum antibiotics linezolid and meropenem Strict Is&Os Avoid contrast studies at this time Patient is critically ill critical care time 33 minutes Plan discussed with: Other My Orders My Orders Orders - GEOVANNA LIMA MD Procedure Category Date Status Time Basic Metabolic Panel LAB 04/12/24 Verified 04:00 D5w/Sod Chl 0.45% PHA 04/11/24 In Process (D5w 1/2ns) 09:15 Dietary Evaluation Review Recommendations by RD: Protein Supplementation Comments: 1) If NPO > 7 days, consider EN/TPN to meet at least 75% of estimated daily energy needs. 2) Initiate Lucas @ 1 pk bid when medically feasible. 3) Advance diet to 60g CCHO/cardiac when medically feasible, pending [employer] J[employer]STING approval. 4) Continue to monitor nutrition-related labs. Expected Outcomes/Goals: 1) diet to advance 2) appetite and labs to improve 3) f/u in 3-5 days Critical Care Time (mins): 33 CC Plasma Assessment Blood Product Administration S: 06:45 GEOVANNA LIMA MD Apr 11, 2024 09:45
[2024-04-11] MEDS: MAGNESIUM SULFATE 1GM/100ML 100 ML IV STA (11:17)
[2024-04-11] MEDS: MAGNESIUM SULFATE 1GM/100ML 100 ML IV ONE (13:14)
[2024-04-11 13:58] LABS: Base Excess -9.6 mmol/L (-2.0-3.0)
--- NOTE | 2024-04-11 15:58 | DVH ---
EXAM: XY CHEST XRAY 1 VIEW TECHNIQUE: Single frontal chest radiograph CLINICAL HISTORY: NG TUBE PLACEMENT COMPARISON: XY CHEST XRAY 1 VIEW on DOS: 04/09/24, XY CHEST PORTABLE on DOS: 04/07/24 Findings/Impression: Frontal chest radiograph demonstrates no acute osseous or superficial soft tissue abnormalities. Right ventral venous catheter terminates in the right atrium. Enteric tube terminates near the GE junction. Recommend advancing 10 cm for more optimal positioning. The trachea is midline. The cardiac silhouette and mediastinum are within normal limits. No pneumothorax, pleural effusions, or consolidations.
--- NOTE | 2024-04-11 17:02 | DVHPNRES ---
Progress Note Date Seen: Apr 11, 2024 Resident Creating Document: LINH RAI RESIDENT Medical Necessity Reason Pt with a Central, PICC or Fol: Yes The following are medically ne: PICC Line Subjective Review of Systems Patient is 73 years old female with past medical history of coronary artery disease, s/p CABG, CVA with right-sided weakness, DVT, hypertension, diabetes mellitus type 2, hyperlipidemia, history of pressure ulcer, osteoporosis 14 by the EMS due to worsening mental status for last 7 days. History was mostly gathered from patient's family members son Janusz. As per son patient usually responds to conversation but last 6 7 days has been came in poor appetite, altered mental status, agitated, , not drinking and eating well. Patient also had fever up to 102.5F at home. Patient also has a bilateral leg swelling who is usually goes away but lately is not getting any better. Patient has a history of stroke and has been bed-bound for the last 3 years, with a urinary and fecal incontinence. Patient's son also reported lately patient has been having difficulty in swallowing food, making some gurgling noise. Patient's lab workup revealed anemia with hemoglobin 8.6, thrombocytosis with platelets 520, serum creatinine 1.13, elevated bilirubin 2.1, elevated AST 53, elevated ALT 119, hypomagnesemia 1.1, BNP was mildly elevated 183, urinalysis revealed nitrite 2+, leukocyte esterase 3+, WBC 564, RBC 16, bacteria . Patient tested negative for COVID-19 and influenza type A and B. CXR revealed no acute disease, CT- head revealed-Patchy periventricular and subcortical white matter hypoattenuation is nonspecific but may be related to small vessel ischemic disease. Lower extremity arterial Doppler revealed- Peripheral vascular disease in the bilateral lower extremity as evidenced by monophasic waveforms. Evaluation is limited as bilateral posterior tibial arteries and dorsalis pedis arteries are not visualized due to external bandages. X-ray left elbow Revealed-There is no evidence of acute fracture or dislocation. Diffuse subcutaneous soft-tissue edema and swelling. Small anterior joint effusion. X-ray left hand- There is no evidence of acute fracture or dislocation. Diffuse osteopenia. Subcentimeter ossific density in the inferior soft tissues of the distal forearm may represent heterotopic ossification or change related to prior trauma or phlebolith. CT abdomen and pelvis without contrast revealed- Mild gaseous small bowel distention in the abdomen without mural thickening or transitional point likely reflect ileus. No evidence of obstruction. Severe atherosclerotic disease. Diffuse fatty muscle atrophy. Subcutaneous edema in the bilateral upper thighs. The urinary bladder is decompressed by Lozada catheter. Moderate-size midline lower pelvic wall fat containing hernia with suggestion of prior repair. Past medical history: Alzheimer's disease, coronary artery disease s/p CABG, heart failure with reduced ejection fraction, stroke, type 2 diabetes mellitus, hypertension, osteoporosis, DVT left lower extremity diagnosed in January 2024 Past surgical history: CABG Social history: Patient is dependent and lives with family but denies smoking, alcohol, drug use. Home medications: Amlodipine 10 mg, Eliquis 2.5 mg b.i.d., atorvastatin 40 mg, levothyroxine 75 mcg, metoprolol succinate 50 mg, pioglitazone 0.5 mg q.d., sitagliptin 50 mg q.d., Protonix 40 mg, metformin 850 mg b.i.d., insulin Novolin 70/30 20 units q.a.m. and 10 units q.p.m., aspirin 81 mg Allergy- NKDA CT abdomen and pelvis without contrast revealed- Mild gaseous small bowel distention in the abdomen without mural thickening or transitional point likely reflect ileus. No evidence of obstruction. Severe atherosclerotic disease. Diffuse fatty muscle atrophy. Subcutaneous edema in the bilateral upper thighs. The urinary bladder is decompressed by Lozada catheter. Moderate-size midline lower pelvic wall fat containing hernia with suggestion of prior repair. Patient seen and examined at bedside, patient is A&O x2, confused, no acute distress noted, diagnosed on 2 L oxygen with nasal cannula, chest radiating 96%. Objective vital signs Vital Sign Date Time Temp Pulse Resp B/P (MAP) Pulse Ox O2 Delivery O2 Flow Rate FiO2 04/11/24 16:29 104/58 04/11/24 15:45 95 16 97 04/11/24 07:30 Nasal Cannula* 4 36 04/10/24 21:00 97.4 97.4 Total Intake and Output 04/10/24 04/10/24 04/11/24 15:00 23:00 07:00 Intake Total 1212.5 ml 1326 ml 991.0 ml Output Total 100 ml 400 ml 1200 ml Balance 1112.5 ml 926 ml -209.0 ml medications Current Medications Medications Dose Ordered Sig/Gus Route Start Time Stop Time Status Last Admin Dose Admin Al Hydrox/Mg Hydrox/Simethicone 5 ml QID MT 04/07/24 22:00 04/09/24 18:40 5 ML Diagnostic Test (Pha) 1 strip IQ4HR 04/08/24 04:00 04/11/24 16:14 1 STRIP Insulin Human Regular IQ4HR SC 04/08/24 04:00 04/11/24 16:20 4 UNITS Dextrose 50 ml UD PRN IV 04/08/24 00:15 04/11/24 05:19 50 ML Pantoprazole Sodium 40 mg DAILY IV 04/09/24 08:00 04/11/24 10:32 40 MG Ondansetron HCl 4 mg Q6HPRN PRN IV 04/09/24 01:15 04/09/24 09:59 4 MG Morphine Sulfate 1 mg Q6HP PRN IV 04/09/24 11:00 Norepinephrine Bitartrate 250 ml @ 3.75 mls/hr Q24H IV 04/09/24 23:00 04/11/24 13:17 15 MLS/HR Enoxaparin Sodium 40 mg DAILY SC 04/12/24 10:00 Cefepime HCl 50 ml @ 12.5 mls/hr Q12HR IV 04/11/24 22:00 UNV Potassium Chloride 20 meq/ Dextrose/Lactated Ringer's 1,010 ml @ 100 mls/hr Q10H6M IV 04/11/24 16:45 Examination GENERAL: Not in acute distress. HEENT: EOMI, Moist mucous membranes. No scleral icterus. No cervical lymphadenopathy. LUNGS: Breath sounds diminished bilaterally. No accessory muscle use. On 4 L oxygen with nasal cannula CARDIOVASCULAR: Regular rate and rhythm. No murmur. No JVD. ABDOMEN: Soft, nontender and nondistended. No palpable masses. EXTREMITIES: Bilateral pedal edema positive SKIN: No rashes or lesions. Warm. NEUROLOGIC: Alert and oriented X2. laboratory and microbiology Laboratory Tests 04/11/24 05:05 Test 04/11/24 05:05 Range/Units Serum Glucose 52 L 74-106 mg/dL Microbiology Date/Time Source Procedure Growth Status 04/08/24 21:15 Nose MRSA Screen - Final Complete 04/08/24 00:40 Blood Blood Culture - Preliminary NO GROWTH AFTER 72 HOURS OF INCUBATION. Resulted 04/07/24 21:30 Urine - Lozada Port Urine Culture - Final Complete Problem List/Assessment/Plan Problem List/Assessment/Plan Neurology : # Metabolic encephalopathy due to sepsis - on empiric antibiotic for sepsis # CVA with right-sided weakness # Dementia. - supportive care Cardiovascular : # Septic shock - On levophed 8 - Maintain MAP >65 # Atrial fibrillation -takes Eliquis at home - Lovenox 40 daily - now on sinus tachycardia # Coronary artery disease, status post CABG # Hypertensive heart disease # Acute on chronic HFrEF, NYHA class III. -Echocardiogram on 01/18/24: EF 40% - continue guideline therapy as tolerated - continue IV hydration for shock -Strict Is&Os Respiratory : # Acute hypoxic respiratory failure likely due to acute on chronic HFrEF - patient is on 2 L oxygen with nasal cannula, saturating 96%. - titrate oxygen to keep saturation > 90% Gastrointestinal : # Transaminitis likely due to shock liver - monitor liver function Genitourinary : # Acute kidney injury hemodynamically mediated in the setting of shock # High Anion Gap Metabolic acidosis -Resolved - Patient clinically needs to continue IV fluid hydration # sepsis due to UTI and infected wound - continue empiric antibiotic, cefepime 1Gm dQ 12hrs Infectious Disease : # septic shock due to urinary tract infection and wound infection # acute cystitis - Wound culture shows MSSA - Change Abx to cefepime 1Gm dQ 12hrs - patient is on pressor, down regular pressure as tolerated Endocrine : # Thyroidism # Diabetes mellitus, Type II - HbA1C: 3.8 (04/08/2024) - continue sliding scale insulin - monitor blood glucose level Hematology : # Thrombocytosis most likely due to reactive for sepsis. - improved # Severe anemia # Likely anemia of chronic disease - hemoglobin was 7.0 - 1 unit blood transfused - monitor H and H Skin: # Sacral pressure wound stage IV, POA - wound infection - Wound Culture growing staph aureus, MSSA - Change Abx to cefepime 1Gm dQ 12hrs Others: # hyponatremia # hypokalemia # Hypoalbuminemia # Osteoporosis. #Bed-bound. Nutrition : NPO for now Prophylaxis for PUD : pantoprazole 40 mg IV daily Prophylaxis for DVT: Lovenox 40 mg sc daily Lines: Right subclavian central catheter: 04/09/2024 Lozada catheter: 04/07/2024 Drips: Levophed 8 Critical Care time spent 39 minutes including patient care, chart review and updating family, excluding procedure: FULL CODE. Plan discussed with Plan discussed with: Patient, Son My Orders My Orders Orders - LINH RAI RESIDENT Procedure Category Date Status Time Complete Blood Count LAB 04/12/24 Verified 04:00 Enoxaparin Sodium PHA 04/12/24 In Process (Lovenox) 10:00 Cefepime 1gm/ 50ml PHA 04/11/24 In Process (Maxipime 1gm/50ml) 18:00 D5w/Lactated PHA 04/11/24 In Process Ringer... W/Potassium 16:45 Dietary Evaluation Review Recommendations by RD: Protein Supplementation Comments: 1) If NPO > 7 days, consider EN/TPN to meet at least 75% of estimated daily energy needs. 2) Initiate Lucas @ 1 pk bid when medically feasible. 3) Advance diet to 60g CCHO/cardiac when medically feasible, pending CANCER PROGRAM DIRECTOR approval. 4) Continue to monitor nutrition-related labs. Expected Outcomes/Goals: 1) diet to advance 2) appetite and labs to improve 3) f/u in 3-5 days CC Plasma Assessment Blood Product Administration S: 06:45 Date of Service: Apr 11, 2024 Billing Provider: TAMMI GREENE MD Common Visit Codes: [id number] CARE 30-74 MIN LINH RAI RESIDENT Apr 11, 2024 17:02 TAMMI GREENE MD Apr 15, 2024 20:08
[2024-04-11] MEDS: POTASSIUM CHLORIDE 20 MEQ in D5W/LACTATED RINGERS 1,000 ML IV SCH (18:24)
[2024-04-11] MEDS: CEFEPIME 1GM/ 50ML 50 ML IV SCH (18:25)
--- NOTE | 2024-04-12 00:03 | DVHPN2 ---
Progress Note - Dictate Date Seen: Apr 11, 2024 Medical Necessity Reason Pt with a Central, PICC or Fol: Yes The following are medically ne: PICC Line Subjective Patient was seen and valuated in follow up. Patient is A&O x1, patient's mental status is declining. Patient's family at bedside reports the patient usually gets increasingly confused when she gets UTIs. She is on 4 LPM NC. NA 147, K 3.1, CL 119, BUN 32, FASHION MARKETER 1.18. vital signs Vital Sign Date Time Temp Pulse Resp B/P (MAP) Pulse Ox O2 Delivery O2 Flow Rate FiO2 04/11/24 12:00 93/41 04/11/24 10:45 89 12 100 04/11/24 07:30 Nasal Cannula* 4 36 04/10/24 21:00 97.4 97.4 Total Intake and Output 04/10/24 04/10/24 04/11/24 15:00 23:00 07:00 Intake Total 1212.5 ml 1326 ml 991.0 ml Output Total 100 ml 400 ml 1200 ml Balance 1112.5 ml 926 ml -209.0 ml medications Current Medications Medications Dose Ordered Sig/Gus Route Start Time Stop Time Status Last Admin Dose Admin Al Hydrox/Mg Hydrox/Simethicone 5 ml QID MT 04/07/24 22:00 04/09/24 18:40 5 ML Diagnostic Test (Pha) 1 strip IQ4HR 04/08/24 04:00 04/11/24 08:08 1 STRIP Insulin Human Regular IQ4HR SC 04/08/24 04:00 04/11/24 00:55 2 UNITS Dextrose 50 ml UD PRN IV 04/08/24 00:15 04/11/24 05:19 50 ML Pantoprazole Sodium 40 mg DAILY IV 04/09/24 08:00 04/11/24 10:32 40 MG Ondansetron HCl 4 mg Q6HPRN PRN IV 04/09/24 01:15 04/09/24 09:59 4 MG Morphine Sulfate 1 mg Q6HP PRN IV 04/09/24 11:00 Norepinephrine Bitartrate 250 ml @ 3.75 mls/hr Q24H IV 04/09/24 23:00 04/11/24 03:57 3.75 MLS/HR Meropenem 50 ml @ 17 mls/hr Q12H IV 04/10/24 14:00 04/11/24 03:23 17 MLS/HR Linezolid 300 ml @ 150 mls/hr Q12HR IV 04/10/24 10:00 04/11/24 10:32 150 MLS/HR Dextrose/Sodium Chloride 1,000 ml @ 75 mls/hr [id number] IV 04/11/24 09:15 04/11/24 09:36 75 MLS/HR objective GENERAL: Awake, alert, oriented x2. Restless. LUNGS: Clear. CARDIOVASCULAR: Heart sounds are good. ABDOMEN: Soft. EXT: +1 pitting edema. SKIN: Pale, clammy. Right arm and hand weeping. laboratory and microbiology Laboratory Tests 04/11/24 05:05 Test 04/11/24 05:05 Range/Units Serum Glucose 52 L 74-106 mg/dL Problem List Questionable atrial fibrillation (takes Eliquis at home). Coronary artery disease status post triple-vessel CABG. Acute on chronic HFrEF, NYHA class III. Sepsis. Hypertension. Hyperlipidemia. CVA with right-sided deficit. Chronic kidney disease. Type 2 diabetes mellitus. Transaminitis. Anemia. Osteoporosis. Dementia. Bed-bound. Assessment/Plan Continued all current supportive medical care. IV antibiotics as ordered. GI prophylactics. Vasopressors for hemodynamic support. Additional plan as per the hospital course. Dietary Evaluation Review Recommendations by RD: Protein Supplementation Comments: 1) If NPO > 7 days, consider EN/TPN to meet at least 75% of estimated daily energy needs. 2) Initiate Lucas @ 1 pk bid when medically feasible. 3) Advance diet to 60g CCHO/cardiac when medically feasible, pending ESCALATOR MECHANIC approval. 4) Continue to monitor nutrition-related labs. Expected Outcomes/Goals: 1) diet to advance 2) appetite and labs to improve 3) f/u in 3-5 days Plan discussed with: Other CC Plasma Assessment Blood Product Administration S: 06:45 JONNA MAGANA MD Apr 11, 2024 12:37
[2024-04-12 06:11] LABS: Basophils # (auto) 0 10 ^3/uL (0-0.2); Basophils % (auto) 0.3 % (0.0-2.0); Eosinophils # (auto) 0 10 ^3/uL (0-0.8); Hemoglobin 10.3 g/dL (12.2-16.2); Lymphocytes # (auto) 0.6 10 ^3/uL (0.4-5.4); Lymphocytes % (auto) 7.9 % (10.0-50.0); Mean Corpuscular Hemoglobin 31.2 pg (28.0-32.0); Mean Corpuscular Hgb Conc. 33.2 g/dL (32.0-36.0); Mean Corpuscular Volume 94.2 fL (80.0-100.0); Monocytes # (auto) 0.2 10 ^3/uL (0-1.3); Monocytes % (auto) 2.6 % (0.0-12.0); Neutrophils # (auto) 7.2 10 ^3/uL (1.6-8.6); Neutrophils % (auto) 89.2 % (37.0-80.0); Nucleated Red Blood Cells % 3.9 %; Platelet Count (auto) 285 10^3/uL (140-450); Red Cell Distribution Width 22.7 % (11.8-14.3); White Blood Cell 8.1 10^3/uL (4.4-10.8)
[2024-04-12 06:20] LABS: Potassium 3.9 mmol/L (3.5-5.1)
[2024-04-12 06:21] LABS: Anion Gap 12 (5-15)
[2024-04-12 06:26] LABS: BUN/Creatinine Ratio 23.8 (10.0-20.0)
[2024-04-12 06:30] LABS: Blood Urea Nitrogen 24 mg/dL (9-23); Calcium 6.8 mg/dL (8.7-10.4); Carbon Dioxide 13 mmol/L (20-31); Chloride 120 mmol/L (98-107); Glucose 169 mg/dL (74-106); Sodium 145 mmol/L (136-145)
[2024-04-12] MEDS: ENOXAPARIN SOD 40 MG/0.4 ML SYRINGE SC SCH (10:10)
--- NOTE | 2024-04-12 14:02 | DVHPN2 ---
Progress Note - Dictate Date Seen: Apr 12, 2024 Medical Necessity Reason Pt with a Central, PICC or Fol: Yes The following are medically ne: PICC Line Subjective Patient was seen and valuated in follow up. No overnight events. Patient remains confused. Swallow evaluation was not able to be performed as ST was unable to wake patient up. Patient remains NPO. BUN 24. vital signs Vital Sign Date Time Temp Pulse Resp B/P (MAP) Pulse Ox O2 Delivery O2 Flow Rate FiO2 04/12/24 12:38 98.0 104 17 118/48 (71) 95 98.0 04/11/24 19:30 Room Air* 0 21 Total Intake and Output 04/11/24 04/11/24 04/12/24 15:00 23:00 07:00 Intake Total 1086.50 ml 652.25 ml 622.5 ml Output Total 400 ml Balance 1086.50 ml 652.25 ml 222.5 ml medications Current Medications Medications Dose Ordered Sig/Gus Route Start Time Stop Time Status Last Admin Dose Admin Al Hydrox/Mg Hydrox/Simethicone 5 ml QID MT 04/07/24 22:00 04/12/24 12:08 5 ML Diagnostic Test (Pha) 1 strip IQ4HR 04/08/24 04:00 04/12/24 12:12 1 STRIP Insulin Human Regular IQ4HR SC 04/08/24 04:00 04/12/24 12:18 4 UNITS Dextrose 50 ml UD PRN IV 04/08/24 00:15 04/11/24 05:19 50 ML Pantoprazole Sodium 40 mg DAILY IV 04/09/24 08:00 04/12/24 10:09 40 MG Ondansetron HCl 4 mg Q6HPRN PRN IV 04/09/24 01:15 04/09/24 09:59 4 MG Morphine Sulfate 1 mg Q6HP PRN IV 04/09/24 11:00 Enoxaparin Sodium 40 mg DAILY SC 04/12/24 10:00 04/12/24 10:10 40 MG Cefepime HCl 50 ml @ 12.5 mls/hr Q12H IV 04/11/24 18:00 04/12/24 06:00 12.5 MLS/HR Potassium Chloride 20 meq/ Dextrose/Lactated Ringer's 1,010 ml @ 100 mls/hr Q10H6M IV 04/11/24 16:45 04/12/24 08:20 100 MLS/HR objective GENERAL: Awake, alert, oriented x2. Restless. LUNGS: Clear. CARDIOVASCULAR: Heart sounds are good. ABDOMEN: Soft. EXT: +1 pitting edema. SKIN: Pale, clammy. Right arm and hand weeping. laboratory and microbiology Laboratory Tests 04/12/24 05:51 Test 04/12/24 05:51 Range/Units Serum Glucose 169 H 74-106 mg/dL Problem List Questionable atrial fibrillation (takes Eliquis at home). Coronary artery disease status post triple-vessel CABG. Acute on chronic HFrEF, NYHA class III. Sepsis. Hypertension. Hyperlipidemia. CVA with right-sided deficit. Chronic kidney disease. Type 2 diabetes mellitus. Transaminitis. Anemia. Osteoporosis. Dementia. Bed-bound. Assessment/Plan Continued all current supportive medical care. IV antibiotics as ordered. GI prophylactics. Vasopressors for hemodynamic support. Additional plan as per the hospital course. Dietary Evaluation Review Recommendations by RD: Protein Supplementation Comments: 1) If NPO > 7 days, consider EN/TPN to meet at least 75% of estimated daily energy needs. 2) Initiate Lucas @ 1 pk bid when medically feasible. 3) Advance diet to 60g CCHO/cardiac when medically feasible, pending HEEL SEAT FITTER approval. 4) Continue to monitor nutrition-related labs. Expected Outcomes/Goals: 1) diet to advance 2) appetite and labs to improve 3) f/u in 3-5 days Plan discussed with: Other CC Plasma Assessment Blood Product Administration S: 06:45 JONNA MAGANA MD Apr 12, 2024 13:13
--- NOTE | 2024-04-12 14:18 | DVHPNRES ---
Progress Note Date Seen: Apr 12, 2024 Resident Creating Document: LINH RAI RESIDENT Medical Necessity Reason Pt with a Central, PICC or Fol: Yes The following are medically ne: PICC Line Subjective Review of Systems 73 years old female with past medical history of coronary artery disease, s/p CABG, CVA with right-sided weakness, DVT, hypertension, diabetes mellitus type 2, hyperlipidemia, history of pressure ulcer, osteoporosis 14 by the EMS due to worsening mental status for last 7 days. History was mostly gathered from patient's family members son Janusz. As per son patient usually responds to conversation but last 6 7 days has been came in poor appetite, altered mental status, agitated, , not drinking and eating well. Patient also had fever up to 102.5F at home. Patient also has a bilateral leg swelling who is usually goes away but lately is not getting any better. Patient has a history of stroke and has been bed-bound for the last 3 years, with a urinary and fecal incontinence. Patient's son also reported lately patient has been having difficulty in swallowing food, making some gurgling noise. Patient's lab workup revealed anemia with hemoglobin 8.6, thrombocytosis with platelets 520, serum creatinine 1.13, elevated bilirubin 2.1, elevated AST 53, elevated ALT 119, hypomagnesemia 1.1, BNP was mildly elevated 183, urinalysis revealed nitrite 2+, leukocyte esterase 3+, WBC 564, RBC 16, bacteria . Patient tested negative for COVID-19 and influenza type A and B. CXR revealed no acute disease, CT- head revealed- Patchy periventricular and subcortical white matter hypoattenuation is nonspecific but may be related to small vessel ischemic disease. Lower extremity arterial Doppler revealed- Peripheral vascular disease in the bilateral lower extremity as evidenced by monophasic waveforms. Evaluation is limited as bilateral posterior tibial arteries and dorsalis pedis arteries are not visualized due to external bandages. X-ray left elbow Revealed-There is no evidence of acute fracture or dislocation. Diffuse subcutaneous soft-tissue edema and swelling. Small anterior joint effusion. X-ray left hand- There is no evidence of acute fracture or dislocation. Diffuse osteopenia. Subcentimeter ossific density in the inferior soft tissues of the distal forearm may represent heterotopic ossification or change related to prior trauma or phlebolith. CT abdomen and pelvis without contrast revealed- Mild gaseous small bowel distention in the abdomen without mural thickening or transitional point likely reflect ileus. No evidence of obstruction. Severe atherosclerotic disease. Diffuse fatty muscle atrophy. Subcutaneous edema in the bilateral upper thighs. The urinary bladder is decompressed by Lozada catheter. Moderate-size midline lower pelvic wall fat containing hernia with suggestion of prior repair. Past medical history: Alzheimer's disease, coronary artery disease s/p CABG, heart failure with reduced ejection fraction, stroke, type 2 diabetes mellitus, hypertension, osteoporosis, DVT left lower extremity diagnosed in January 2024 Past surgical history: CABG Social history: Patient is dependent and lives with family but denies smoking, alcohol, drug use. Home medications: Amlodipine 10 mg, Eliquis 2.5 mg b.i.d., atorvastatin 40 mg, levothyroxine 75 mcg, metoprolol succinate 50 mg, pioglitazone 0.5 mg q.d., sitagliptin 50 mg q.d., Protonix 40 mg, metformin 850 mg b.i.d., insulin Novolin 70/30 20 units q.a.m. and 10 units q.p.m., aspirin 81 mg Allergy- NKDA CT abdomen and pelvis without contrast revealed- Mild gaseous small bowel distention in the abdomen without mural thickening or transitional point likely reflect ileus. No evidence of obstruction. Severe atherosclerotic disease. Diffuse fatty muscle atrophy. Subcutaneous edema in the bilateral upper thighs. The urinary bladder is decompressed by Lozada catheter. Moderate-size midline lower pelvic wall fat containing hernia with suggestion of prior repair. Patient seen and examined at bedside, patient is A&O x2, confused, no acute distress noted, diagnosed on 2 L oxygen with nasal cannula, chest radiating 96%. Off pressure from last night. Objective vital signs Vital Sign Date Time Temp Pulse Resp B/P (MAP) Pulse Ox O2 Delivery O2 Flow Rate FiO2 04/12/24 12:38 98.0 104 17 118/48 (71) 95 98.0 04/11/24 19:30 Room Air* 0 21 Total Intake and Output 04/11/24 04/11/24 04/12/24 15:00 23:00 07:00 Intake Total 1086.50 ml 652.25 ml 622.5 ml Output Total 400 ml Balance 1086.50 ml 652.25 ml 222.5 ml medications Current Medications Medications Dose Ordered Sig/Gus Route Start Time Stop Time Status Last Admin Dose Admin Al Hydrox/Mg Hydrox/Simethicone 5 ml QID MT 04/07/24 22:00 04/12/24 12:08 5 ML Diagnostic Test (Pha) 1 strip IQ4HR 04/08/24 04:00 04/12/24 12:12 1 STRIP Insulin Human Regular IQ4HR SC 04/08/24 04:00 04/12/24 12:18 4 UNITS Dextrose 50 ml UD PRN IV 04/08/24 00:15 04/11/24 05:19 50 ML Pantoprazole Sodium 40 mg DAILY IV 04/09/24 08:00 04/12/24 10:09 40 MG Ondansetron HCl 4 mg Q6HPRN PRN IV 04/09/24 01:15 04/09/24 09:59 4 MG Morphine Sulfate 1 mg Q6HP PRN IV 04/09/24 11:00 Enoxaparin Sodium 40 mg DAILY SC 04/12/24 10:00 04/12/24 10:10 40 MG Cefepime HCl 50 ml @ 12.5 mls/hr Q12H IV 04/11/24 18:00 04/12/24 06:00 12.5 MLS/HR Potassium Chloride 20 meq/ Dextrose/Lactated Ringer's 1,010 ml @ 100 mls/hr Q10H6M IV 04/11/24 16:45 04/12/24 13:06 100 MLS/HR Magnesium Sulfate/ Dextrose 100 ml @ 100 mls/hr Q1HR IV 04/12/24 18:00 04/12/24 19:59 UNV Calcium Gluconate/ Sodium Chloride 50 ml @ 100 mls/hr Q30M IV 04/12/24 14:15 04/12/24 15:14 UNV Examination GENERAL: Not in acute distress. HEENT: EOMI, Moist mucous membranes. No scleral icterus. No cervical lymphadenopathy. LUNGS: Breath sounds diminished bilaterally. No accessory muscle use. On 2 L oxygen with nasal cannula CARDIOVASCULAR: Regular rate and rhythm. No murmur. No JVD. ABDOMEN: Soft, nontender and nondistended. No palpable masses. EXTREMITIES: Bilateral pedal edema positive SKIN: No rashes or lesions. Warm. NEUROLOGIC: Alert and oriented X2 laboratory and microbiology Laboratory Tests 04/12/24 05:51 Test 1/4/25 05:51 Range/Units Serum Glucose 169 H 74-106 mg/dL Microbiology Date/Time Source Procedure Growth Status 04/08/24 21:15 Nose MRSA Screen - Final Complete 04/08/24 00:40 Blood Blood Culture - Preliminary NO GROWTH AFTER 72 HOURS OF INCUBATION. Resulted 04/07/24 21:30 Urine - Lozada Port Urine Culture - Final Complete Problem List/Assessment/Plan Problem List/Assessment/Plan Neurology : # Metabolic encephalopathy due to sepsis - on empiric antibiotic for sepsis # CVA with right-sided weakness # Dementia. - supportive care Cardiovascular : # Septic shock - On levophed 8 - Maintain MAP >65 # Atrial fibrillation -takes Eliquis at home - Lovenox 40 daily - now on sinus tachycardia # Coronary artery disease, status post CABG # Hypertensive heart disease # Acute on chronic HFrEF, NYHA class III. -Echocardiogram on 01/18/24: EF 40% - continue guideline therapy as tolerated - continue IV hydration for shock -Strict Is&Os Respiratory : # Acute hypoxic respiratory failure likely due to acute on chronic HFrEF - patient is on 2 L oxygen with nasal cannula, saturating 96%. - titrate oxygen to keep saturation > 90% Gastrointestinal : # Transaminitis likely due to shock liver - monitor liver function Genitourinary : # Acute kidney injury hemodynamically mediated in the setting of shock # High Anion Gap Metabolic acidosis -Resolved - Patient clinically needs to continue IV fluid hydration # sepsis due to UTI and infected wound - continue empiric antibiotic, cefepime 1Gm dQ 12hrs Infectious Disease : # septic shock due to urinary tract infection and wound infection # acute cystitis - Wound culture shows MSSA - Change Abx to cefepime 1Gm dQ 12hrs - patient is on pressor, down regular pressure as tolerated Endocrine : # Thyroidism # Diabetes mellitus, Type II - HbA1C: 3.8 (04/08/2024) - continue sliding scale insulin - monitor blood glucose level Hematology : # Thrombocytosis most likely due to reactive for sepsis. - improved # Severe anemia # Likely anemia of chronic disease - hemoglobin was 7.0 - 1 unit blood transfused - monitor H and H Skin: # Sacral pressure wound stage IV, POA - wound infection - Wound Culture growing staph aureus, MSSA - Change Abx to cefepime 1Gm dQ 12hrs Others: # hyponatremia # hypokalemia # Hypoalbuminemia # Osteoporosis. #Bed-bound. Nutrition : Start feeding through NG tube, Glucerna NPO for now Prophylaxis for PUD : pantoprazole 40 mg IV daily Prophylaxis for DVT: Lovenox 40 mg sc daily Lines: Right subclavian central catheter: 04/09/2024 Lozada catheter: 04/07/2024 Drips: Levophed 0 According to son, patient has dementia for a long time, and eating very less from last week, giving patient is poor prognosis status, we will discuss for hospice care with the family. Critical Care time spent 39 minutes including patient care, chart review and updating family, excluding procedure: FULL CODE. Plan discussed with Plan discussed with: Patient, Son My Orders My Orders Orders - LINH RAI RESIDENT Procedure Category Date Status Time Enoxaparin Sodium PHA 04/12/24 In Process (Lovenox) 10:00 Cefepime 1gm/ 50ml PHA 04/11/24 In Process (Maxipime 1gm/50ml) 18:00 D5w/Lactated PHA 04/11/24 In Process Ringer... W/Potassium 16:45 Complete Blood Count LAB 04/13/24 Verified 04:00 Comprehensive LAB 04/13/24 Verified Metabolic Panel 04:00 Magnesium LAB 04/13/24 Verified 04:00 Phosphorus LAB 04/13/24 Verified 04:00 Magnesium Sulfate PHA 04/12/24 Logged 1gm/100ml 18:00 Calcium Gluc PHA 04/12/24 Logged 1,000mg/50ml-Ns 14:15 Dietary Evaluation Review Recommendations by RD: Protein Supplementation Comments: 1) If NPO > 7 days, consider EN/TPN to meet at least 75% of estimated daily energy needs. 2) Initiate Lucas @ 1 pk bid when medically feasible. 3) Advance diet to 60g CCHO/cardiac when medically feasible, pending FILTER [employer]P W[employer]ER approval. 4) Continue to monitor nutrition-related labs. Expected Outcomes/Goals: 1) diet to advance 2) appetite and labs to improve 3) f/u in 3-5 days CC Plasma Assessment Blood Product Administration S: 06:45 Date of Service: Apr 12, 2024 Billing Provider: TAMMI GREENE MD Common Visit Codes: [id number] CARE 30-74 MIN, [id number] CARE-EACH +30MIN LINH RAI RESIDENT Apr 12, 2024 14:18 TAMMI GREENE MD Apr 15, 2024 20:09
[2024-04-12] MEDS ORDERED: Glucerna 1.2 Cal 1Liter BOTTLE GT SCH (14:30)
[2024-04-12] MEDS: CALCIUM GLUC 1,000mg/50ml-NS 50 ML IV SCH (14:44)
--- NOTE | 2024-04-12 16:45 | DVHPN2 ---
Progress Note Date Seen: Apr 12, 2024 Medical Necessity Reason Pt with a Central, PICC or Fol: Yes The following are medically ne: Central Line, PICC Line, Lozada Catheter Subjective Patient reports: Other Review of Systems: Deferred Objective vital signs Vital Sign Date Time Temp Pulse Resp B/P (MAP) Pulse Ox O2 Delivery O2 Flow Rate FiO2 04/12/24 16:32 89 17 116/59 (78) 96 04/12/24 12:38 98.0 98.0 04/11/24 19:30 Room Air* 0 21 Total Intake and Output 04/11/24 04/11/24 04/12/24 15:00 23:00 07:00 Intake Total 1086.50 ml 652.25 ml 622.5 ml Output Total 400 ml Balance 1086.50 ml 652.25 ml 222.5 ml medications Current Medications Medications Dose Ordered Sig/Gus Route Start Time Stop Time Status Last Admin Dose Admin Al Hydrox/Mg Hydrox/Simethicone 5 ml QID MT 04/07/24 22:00 04/12/24 12:08 5 ML Diagnostic Test (Pha) 1 strip IQ4HR 04/08/24 04:00 04/12/24 16:18 1 STRIP Insulin Human Regular IQ4HR SC 04/08/24 04:00 04/12/24 16:22 3 UNITS Dextrose 50 ml UD PRN IV 04/08/24 00:15 04/11/24 05:19 50 ML Pantoprazole Sodium 40 mg DAILY IV 04/09/24 08:00 04/12/24 10:09 40 MG Ondansetron HCl 4 mg Q6HPRN PRN IV 04/09/24 01:15 04/09/24 09:59 4 MG Morphine Sulfate 1 mg Q6HP PRN IV 04/09/24 11:00 Enoxaparin Sodium 40 mg DAILY SC 04/12/24 10:00 04/12/24 10:10 40 MG Cefepime HCl 50 ml @ 12.5 mls/hr Q12H IV 04/11/24 18:00 04/12/24 06:00 12.5 MLS/HR Potassium Chloride 20 meq/ Dextrose/Lactated Ringer's 1,010 ml @ 100 mls/hr Q10H6M IV 04/11/24 16:45 1/4/25 13:06 100 MLS/HR Magnesium Sulfate/ Dextrose 100 ml @ 100 mls/hr Q1HR IV 04/12/24 18:00 04/12/24 19:59 Enteral Nutritional Formula 1,000 ml 30ML/HR GT 04/12/24 14:30 Examination: GENERAL:Abnormal, HEENT:Abnormal, NECK:Abnormal, LUNGS:Abnormal, ABDOMEN:Abnormal, SKIN:Abnormal laboratory and microbiology Laboratory Tests 04/12/24 05:51 Test 04/12/24 05:51 Range/Units Serum Glucose 169 H 74-106 mg/dL Microbiology Date/Time Source Procedure Growth Status 04/08/24 21:15 Nose MRSA Screen - Final Complete 04/08/24 00:40 Blood Blood Culture - Preliminary NO GROWTH AFTER 72 HOURS OF INCUBATION. Resulted 04/07/24 21:30 Urine - Lozada Port Urine Culture - Final Complete Problem List/Assessment/Plan Problem List/Assessment/Plan Acute kidney injury hemodynamically mediated in the setting of shock Septic shock Metabolic acidosis Urinary tract infection Sacral decubitus ulcers Hypoalbuminemia hypernatremia hypokalemia linden resolved current fluid management per primary team Maintain mean arterial pressure greater than 65 Avoid hypotension Broad-spectrum antibiotics linezolid and meropenem Strict Is&Os Avoid contrast studies at this time Stable from renal standpoint now that acute kidney injury has resolved. I will sign off the case. Management as per primary medical team. Reconsult if you have further questions or require assistance. Plan discussed with: Other Dietary Evaluation Review Recommendations by RD: Protein Supplementation Comments: 1) If NPO > 7 days, consider EN/TPN to meet at least 75% of estimated daily energy needs. 2) Initiate Lucas @ 1 pk bid when medically feasible. 3) Advance diet to 60g CCHO/cardiac when medically feasible, pending [employer]AT [employer]INEER approval. 4) Continue to monitor nutrition-related labs. Expected Outcomes/Goals: 1) diet to advance 2) appetite and labs to improve 3) f/u in 3-5 days CC Plasma Assessment Blood Product Administration S: 06:45 GEOVANNA LIMA MD Apr 12, 2024 16:45
[2024-04-12] MEDS: MAGNESIUM SULFATE 1GM/100ML 100 ML IV SCH (17:27)
[2024-04-12 20:28] VITALS: PULSE 87; RESP 18; O2SAT 99
[2024-04-13] VITALS (8 sets, daily range): BP systolic 70–116; BP diastolic 51–69; PULSE 85–137; RESP 18–19; O2SAT 94–99
[2024-04-13 10:49] LABS: Basophils # (auto) 0 10 ^3/uL (0-0.2); Basophils % (auto) 0.1 % (0.0-2.0); Eosinophils # (auto) 0 10 ^3/uL (0-0.8); Eosinophils % (auto) 0.1 % (0.0-7.0); Hematocrit 28.6 % (36.0-46.0); Hemoglobin 9.5 g/dL (12.2-16.2); Lymphocytes # (auto) 0.6 10 ^3/uL (0.4-5.4); Lymphocytes % (auto) 5.8 % (10.0-50.0); Mean Corpuscular Hgb Conc. 33.2 g/dL (32.0-36.0); Mean Corpuscular Volume 93.4 fL (80.0-100.0); Monocytes # (auto) 0.1 10 ^3/uL (0-1.3); Monocytes % (auto) 1.4 % (0.0-12.0); Neutrophils # (auto) 9.6 10 ^3/uL (1.6-8.6); Neutrophils % (auto) 92.6 % (37.0-80.0); Nucleated Red Blood Cells % 0.8 %; Platelet Count (auto) 219 10^3/uL (140-450); Red Blood Cells 3.06 10^6/uL (4.0-5.20); Red Cell Distribution Width 21.6 % (11.8-14.3); White Blood Cell 10.3 10^3/uL (4.4-10.8)
[2024-04-13 11:09] LABS: Alkaline Phosphatase 86 U/L (46-116); Anion Gap 12 (5-15); BUN/Creatinine Ratio 25.5 (10.0-20.0); Magnesium 2.1 mg/dL (1.6-2.6); Potassium 3.6 mmol/L (3.5-5.1)
[2024-04-13 11:11] LABS: Carbon Dioxide 15 mmol/L (20-31); Chloride 121 mmol/L (98-107); Glucose 377 mg/dL (74-106); Sodium 148 mmol/L (136-145)
[2024-04-13 11:12] LABS: Alanine Aminotransferase 49 U/L (7-40); Albumin 1.5 g/dL (3.2-4.8); Aspartate Aminotransferase 84 U/L (13-40); Bilirubin, Total 3.1 mg/dL (0.2-1.0); Blood Urea Nitrogen 25 mg/dL (9-23); Calcium 7.5 mg/dL (8.7-10.4); Phosphorus 1.1 mg/dL (2.4-5.1); Total Protein 3.8 g/dL (5.7-8.2)
[2024-04-13 12:44] LABS: Base Excess -11.4 mmol/L (-2.0-3.0)
[2024-04-13] MEDS: NOREPINEPHRINE 8 MG/250ML KIT 250 ML IV SCH (12:45)
--- NOTE | 2024-04-13 12:56 | MEDREC ---
[facility] Intervention Section I [facility] Intervention: Review courses of therapy (PLEASE CONSIDER ADDING ANTIBIOTIC TO COVER FOR ENTEROCOCCUS FAECALIS FOUND IN THE WOUND CULTURE) MARYCHUY MANDUJANO PHARMACIST Apr 13, 2024 12:56
--- NOTE | 2024-04-13 14:14 | DVH ---
CHEST RADIOGRAPH Indication: LOW O2 Technique: Single frontal view of the chest was obtained Comparison: XY CHEST XRAY 1 VIEW on DOS: 04/11/24, XY CHEST XRAY 1 VIEW on DOS: 04/09/24, XY CHEST PORTAB LE on DOS: 04/07/24 FINDINGS: Lines and Tubes: Central line in place from the right with the tip at cavoatrial junction. Enteric tu be. Enteric tube below the left hemidiaphragm in the stomach. There is a nest of wires overlying the upper abdomen obscuring detail. Sternal wire sutures are in place Lungs: Airspace disease left lower lobe Pleura: No effusion. No pneumothorax. Cardiomediastinal contours: Unremarkable Bones: No acute osseous abnormality. IMPRESSION: 1. Airspace disease worsening in the left lower lobe. 2. Enteric tube below the left diaphragm in the stomach 3. Central line in place in the right unchanged. HS:Gulshan Medrano
[2024-04-13] MEDS: FUROSEMIDE 20 MG/2 ML VIAL IV ONE (14:15)
[2024-04-13] MEDS ORDERED: VANCOMYCIN PER PHARMACY 0 MG IV SCH (15:15)
[2024-04-13] MEDS: fentaNYL Drip 2500mCg/250mlNS 250 ML IV SCH (15:45)
[2024-04-13] MEDS: EPINEPHrine HCL 1 MG/10 ML SYRG IV ONE (16:02)
[2024-04-13] MEDS: ETOMIDATE (2MG/ML) 20ML VIAL IV ONE (16:03)
[2024-04-13] MEDS: ROCURONIUM 10MG/ML 10ML VIAL IV ONE (16:04)
[2024-04-13] MEDS: MEROPENEM 1GM IVPB 50 ML IV ONE (16:34)
[2024-04-13] MEDS: MIDAZOLAM DRIP 50 mg/50mL 50 ML IV SCH (16:44)
--- NOTE | 2024-04-13 16:56 | DVH ---
CHEST RADIOGRAPH Indication: intubation Technique: Single frontal view of the chest was obtained COMPARISON: XY CHEST XRAY 1 VIEW on DOS: 04/13/24, XY CHEST XRAY 1 VIEW on DOS: 04/11/24, XY CHEST XRAY 1 VIEW on DOS: 04/09/24, XY CHEST PORTABLE on DOS: 04/07/24 FINDINGS: Lines and Tubes: Interval placement of endotracheal tube with its tip above the nora. Unchanged rig ht subclavian central venous catheter. The nasogastric tube extends to the gastroesophageal junction. Sternotomy wires appear intact. Lungs: Multifocal lung disease, increased particularly in the right lung with small right pleural eff usion. Pleura: Small right pleural effusion. No pneumothorax. Cardiomediastinal contours: Unchanged. Bones: Unremarkable IMPRESSION: 1. Increased multifocal lung disease. 2. Endotracheal tube in satisfactory position.
--- NOTE | 2024-04-13 17:57 | DVHPN2 ---
Assessment/Plan Assessment/Plan ICU progress note Subjective Improving during rounds in AM, initially for transfer to telemetry, around noon hypoxic, hypotensive, started on pressors, repeat xray with multifocal lung disease, maintenance fluid discontinued. POCUS done, decreased contractility, IVC >2cm with >50% excursion, JVD clavicular level, blines on right side, trace pleural effusion. oxygenation not improving with oxymizer, had discussion with family regarding goals of care, family wanted full code. Patient was intubated, sedated and placed on mechanical ventilator, 2nd pressor added, started on stress dose steroid, escalated abx, collected sputum culture. a line placed Objective Physical exam intubated, sedated on mechanical ventilation dry mucous membranes s1 s2 tachycardic course breath sounds abdomen soft b/l UE and LE edema Imaging CXR worsening airspace disease, ETT in place Assessment and plan septic vs cardiogenic shock acute metabolic encephalopathy 2/2 sepsis on dementia acute hypoxic respiratory failure 2/2 aspiration PNA extravascular fluid overload likely oncotic acute on chronic heart failure with reduced ejection fraction 40% CAD s/p CABG dementia MELVINA likely ATN resolved infected sacral ulcer c/w mechanical ventilation c/w sedation for RAAS -3 meropenem and vancomycin c/w levo and vaso, maintain MAP >70 hydrocortisone 50mg q6 follow cultures albumin and lasix for oncodiuresis repeat POCUS for fluid management tomorrow, possibly dobutamine diuresis if re quired consult pulm nephro consult appreciated, reassess tomorrow for dobutamine diuresis CVP monitoring ISS q4 wound consult ulcer precaution VAP bundle Lines a line R radial ETT celaya R subclav TLC Maintain potassium of 4, phosphate of 3 and magnesium of 2 Diet hold GI prophylaxis protonix DVT prophylaxis lovenox Condition critical Prognosis poor code status full code 120 minutes critical care time spent on this patient including evaluation, chart review, formulating plan and communication with team, excluding any procedures or point of care imaging Plan discussed with: Son My Orders Orders - TAMMI GREENE MD Procedure Category Date Status Time Norepinephrine 8 PHA 04/13/24 In Process Mg/250ml Kit 12:45 Communication Order ORDERS 04/13/24 Transmitted 12:43 Chest Xray 1 View XY 04/13/24 Resulted 12:48 Vancomycin Per GWENDOLYN 04/13/24 In Process Pharmacy Protoc 14:11 Meropenem 1gm Ivpb PHA 04/13/24 In Process (Merrem 1gm/ Ns) 22:00 Vancomycin Per PHA 04/13/24 In Process Pharmacy 15:15 Vancomycin 500mg/100ml PHA 04/13/24 In Process 21:00 Complete Blood Count LAB 04/14/24 Verified 04:00 Creatinine LAB 04/14/24 Verified 04:00 Vancomycin,Trough LAB 04/15/24 Verified 08:00 Vancomycin Per GWENDOLYN 04/13/24 In Process Pharmacy Protoc 15:20 Midazolam Drip 50 PHA 04/13/24 In Process Mg/50ml (Versed Drip 5 15:45 Fentanyl Drip PHA 04/13/24 In Process 2500mcg/250mlns 15:45 Rass Sedation Scale GWENDOLYN 04/13/24 In Process 15:38 Sodium Chl 0.9% PHA 04/13/24 In Process (So... W/Vasopressin 15:45 Chest Xray 1 View XY 04/13/24 Resulted 16:06 Ventilator Orders RT 04/13/24 Transmitted 16:25 Abg W/ Co-Ox RT 04/13/24 Logged 17:30 Respiratory Culture ROSS 04/13/24 In Process W/ Gs 16:25 Communication Order ORDERS 04/13/24 Transmitted 16:22 Obtain Consent For: ORDERS 04/13/24 Transmitted 16:22 Complete Blood Count LAB 04/13/24 Logged 17:39 Comprehensive LAB 04/13/24 Logged Metabolic Panel 17:39 Magnesium LAB 04/14/24 Verified 04:00 Phosphorus LAB 04/14/24 Verified 04:00 Lactic Acid W/ Reflex LAB 04/13/24 Logged Order 17:39 Abg W/ Co-Ox RT 04/13/24 Logged 17:40 Hydrocortisone PHA 04/13/24 Logged Succinate Inj 18:00 *Consult CONS 04/13/24 Transmitted / 17:42 Date of Service: Apr 13, 2024 Billing Provider: TAMMI GREENE MD Common Visit Codes: [id number] CARE 30-74 MIN, [id number] CARE-EACH +30MIN TAMMI GREENE MD Apr 13, 2024 17:57
--- NOTE | 2024-04-13 17:58 | DVHNC2 ---
Intubation Indication: Respiratory Insufficiency Prep: Preoxygenation Medicated with: Other (etomidate and rocuronium) Intubation Approach: Orotracheal Intubation size: cm (7.5) Informed consent obtained: Yes Risks/benefits/alt described: Yes Date of Service: Apr 13, 2024 Billing Provider: TAMMI GREENE MD Cardiology Common Codes: PROCEDURE ONLY TAMMI GREENE MD Apr 13, 2024 17:58
--- NOTE | 2024-04-13 18:00 | DVHNC2 ---
Arterial Puncture Notes Right radial arterial line Sterile procedure Arrow needle Invasive BP monitoring, frequent blood gas analysis Date of Service: Apr 13, 2024 Billing Provider: TAMMI GREENE MD Cardiology Common Codes: PROCEDURE ONLY TAMMI GREENE MD Apr 13, 2024 18:00
[2024-04-13 18:10] LABS: Base Excess -19.9 mmol/L (-2.0-3.0)
[2024-04-13] MEDS: VASOPRESSIN 20 UNITS in SODIUM CHL 0.9% 99 ML IV SCH (18:35)
[2024-04-13 18:40] LABS: Hematocrit 37.9 % (36.0-46.0); Hemoglobin 11.8 g/dL (12.2-16.2); Mean Corpuscular Hemoglobin 30.4 pg (28.0-32.0); Mean Corpuscular Hgb Conc. 31.3 g/dL (32.0-36.0); Mean Corpuscular Volume 97.2 fL (80.0-100.0); Platelet Count (auto) 264 10^3/uL (140-450); White Blood Cell 13.4 10^3/uL (4.4-10.8)
[2024-04-13] MEDS: ALBUMIN 25% 100 ML IV ONE (18:45)
[2024-04-13] MEDS: NOREPINEPHRINE 8 MG/250ML KIT 250 ML IV ONE (18:47)
[2024-04-13 18:52] LABS: Basophils % (manual) 0 (0.0-2.0); Blast Cells 0; Eosinophils % (manual) 0 (0-7); Metamyelocytes % 0; Myelocytes % 0; Promyelocytes % 0; Reactive Lymphocytes 0
[2024-04-13] MEDS: HYDROCORTISONE SOD SUCC 100 MG/2ML INJ VIAL IV SCH (18:54)
[2024-04-13 19:07] LABS: Alanine Aminotransferase 56 U/L (7-40); Alkaline Phosphatase 113 U/L (46-116); Anion Gap 13 (5-15); Aspartate Aminotransferase 96 U/L (13-40); BUN/Creatinine Ratio 19.3 (10.0-20.0); Blood Urea Nitrogen 21 mg/dL (9-23); Calcium 7.7 mg/dL (8.7-10.4); Carbon Dioxide 12 mmol/L (20-31); Chloride 124 mmol/L (98-107); Glucose 192 mg/dL (74-106); Potassium 3.9 mmol/L (3.5-5.1); Sodium 149 mmol/L (136-145)
[2024-04-13 19:08] LABS: Albumin 1.9 g/dL (3.2-4.8); Bilirubin, Total 3.9 mg/dL (0.2-1.0); Total Protein 4.5 g/dL (5.7-8.2)
[2024-04-13 19:16] LABS: Band Neutrophils % (manual) 6; Lymphocytes % (manual) 8 (10.0-50.0); Monocytes % (manual) 1 (0-12)
[2024-04-13 19:20] LABS: Platelet Estimate Adequate
[2024-04-13 19:21] LABS: Lactic Acid w/Reflex 7.1 mmol/L (0.4-2.0)
[2024-04-13] MEDS: VANCOMYCIN 500mg/100mL 100 ML IV SCH (21:00)
[2024-04-13] MEDS: MEROPENEM 1GM IVPB 50 ML IV SCH (22:13)
[2024-04-14] VITALS (95 sets, daily range): BP systolic 77–151; BP diastolic 41–98; PULSE 66–112; RESP 18–27; TEMP 96–100.2; O2SAT 93–100
--- NOTE | 2024-04-14 | DVHINCON2 ---
Date of service: Apr 13, 2024 Referring Physician Marcos Curiel MD Reason for Consultation Acute hypoxic respiratory failure requiring mechanical ventilator, Aspiration pneumonia History of Present Illness A 73-year-old woman with PMHx of Alzheimer's disease, heart failure with reduced ejection fraction, stroke, type 2 diabetes mellitus, hypertension, and osteoporosis who presented to ED on 04/08/24 with a chief complaint of worsening mental status x7 days. History obtained console operator from patient's son, [place], who reports at baseline she is alert and oriented to place and person and follows commands, but since 1 week prior to presentation, was more altered with disorientation and not responding to commands. Reports fever of 102.5 F with clamminess, LE swelling x5 days. Pt has on and off bilateral lower extremity swelling which goes away, but this time persisted. Patient has a history of stroke and has been bed-bound for the last 3 years, with urinary and fecal incontinence. Son also reports pt is choking on regular foods and even lee lesauce. Patient was admitted for further care and pulmonary consultation is requested for evaluation and management of acute hypoxic respiratory failure requiring mechanical vent. Review of Systems: 14-point review of systems negative unless otherwise noted above. Past Medical History: Alzheimer's disease, coronary artery disease s/p CABG, heart failure with reduced ejection fraction, stroke, type 2 diabetes mellitus, hypertension, osteoporosis, DVT left lower extremity diagnosed in January 2024 Past Surgical History: CABG Medications: Reviewed. Allergies: No known drug allergies. Family History: No family history of premature CAD. No family history of lung disorders. Social History: Nonsmoker. No alcohol or illicit drug use. Allergies: Coded Allergies: NO KNOWN ALLERGIES (Unverified , 04/07/24) Home Meds Reported Medications Fenofibrate (Fenofibrate) 160 Mg Tab, 1 TAB PO DAILY for 90 Days, #90 04/08/24 Apixaban Base (ELIQUIS) 2.5 Mg Tab, 1 TAB PO BID for 30 Days, #60 04/08/24 Captopril (Captopril) 25 Mg Tab, 1 TAB PO DAILY for 90 Days, #90 04/08/24 Citalopram Hydrobromide (Citalopram Hydrobromide) 20 Mg Tab, 1 TAB PO BID for 30 Days, #60 04/08/24 Pantoprazole Sodium Sesquihydr (Protonix) 40 Mg Tab, 1 TAB PO DAILY for 30 Days, #30 04/08/24 Atorvastatin Calcium (Lipitor) 40 Mg Tab, 1 TAB PO DAILY for 30 Days, #30 04/08/24 Amlodipine Besylate (Amlodipine Besylate) 10 Mg Tab, 1 TAB PO DAILY for 30 Days, #30 04/08/24 Gabapentin (Gabapentin) 100 Mg Cap, 1 CAP PO TID for 30 Days, #90 04/08/24 Sitagliptin Phosphate (Januvia) 50 Mg Tab, 1 TAB PO DAILY for 30 Days, #30 04/08/24 Metformin Hydrochloride (Metformin Hcl) 850 Mg Tab, 1 TAB PO BID for 30 Days, #60 04/08/24 Current Medications Current Medications Medications (Trade) Dose Ordered Sig/Gus Route PRN Reason Start Time Stop Time Status Last Admin Norepinephrine Bitartrate 250 ml @ 3.75 mls/hr Q24H IV 04/13/24 12:45 04/13/24 18:46 Meropenem 50 ml @ 17 mls/hr Q12HR IV 04/13/24 22:00 04/13/24 22:13 Vancomycin HCl 0 ml @ 0 mls/hr UD IV 04/13/24 15:15 Vancomycin HCl 100 ml @ 200 mls/hr Q12H IV 04/13/24 21:00 04/13/24 21:00 Midazolam HCl 50 ml @ 1 mls/hr Q24H IV 04/13/24 15:45 04/13/24 16:44 Fentanyl Citrate 250 ml @ 2.5 mls/hr Q24H IV 04/13/24 15:45 Vasopressin 20 units/Sodium Chloride 100 ml @ 9 mls/hr Q11H7M IV 04/13/24 15:45 04/13/24 18:35 Hydrocortisone Sodium Succinate (Solu-CORTEF INJECTION) 50 mg Q6HR IV 04/13/24 18:00 04/13/24 23:51 DC 04/13/24 18:54 Hydrocortisone Sodium Succinate (Solu-CORTEF INJECTION) 50 mg Q6HR IV 04/14/24 00:00 Vital Signs Vital Signs Date Time Temp Pulse Resp B/P (MAP) Pulse Ox O2 Delivery O2 Flow Rate FiO2 04/13/24 23:45 99 18 118/57 (77) 100 04/13/24 22:41 70 04/13/24 20:06 Nasal Cannula* 2 04/13/24 20:00 97.9 97.9 Physical Exam Gen.: Patient lying in bed in medical ICU. Sedated, intubated on mechanical ventilator. Head: Normocephalic, atraumatic. Eyes: PERRLA. Ears: Normal external anatomy. Throat: Endotracheal tube and orogastric tube in place. Neck: Supple, trachea midline. Chest: Transmitted breath sounds bilaterally. Decreased air entry bilaterally. No wheezing. Bibasilar crackles. Cardiovascular: Positive S1, positive S2. Regular rate and rhythm. Abdomen: Positive bowel sounds in all 4 quadrants. Soft, nontender, nondistended. : Lozada in place. Normal external genitalia. Rectal: Deferred. Skin: Warm, dry. Intact. Extremities: 2+ radial pulses bilaterally. No lower extremity edema. Neuro: Sedated. Labs/Diagnostic Data Labs Test 04/13/24 20:16 04/13/24 18:25 04/13/24 18:03 04/13/24 12:38 Range/Units Lactic Acid Level 7.0 *H 0.4-2.0 mmol/L White Blood Count 13.4 #H 4.4-10.8 10^3/uL Red Blood Count 3.90 L 4.0-5.20 10^6/uL Hemoglobin 11.8 #L 12.2-16.2 g/dL Hematocrit 37.9 # 36.0-46.0 % Mean Corpuscular Volume 97.2 # 80.0-100.0 fL Mean Corpuscular Hemoglobin 30.4 28.0-32.0 pg Mean Corpuscular Hemoglobin Concent 31.3 L 32.0-36.0 g/dL Red Cell Distribution Width 23.0 H 11.8-14.3 % Platelet Count 264 140-450 10^3/uL Mean Platelet Volume 8.9 6.9-10.8 fL Neutrophils (%) (Auto) 37.0-80.0 % Lymphocytes (%) (Auto) 10.0-50.0 % Monocytes (%) (Auto) 0.0-12.0 % Basophils (%) (Auto) 0.0-2.0 % Neutrophils # (Auto) 1.6-8.6 10 ^3/uL Lymphocytes # (Auto) 0.4-5.4 10 ^3/uL Monocytes # (Auto) 0-1.3 10 ^3/uL Differential Total Cells Counted 100.0 100 Neutrophils % (Manual) 85 H 37.0-80.0 Band Neutrophils % (Manual) 6 Lymphocytes % (Manual) 8 L 10.0-50.0 Monocytes % (Manual) 1 0-12 Eosinophils % (Manual) 0 0-7 Basophils % (Manual) 0 0.0-2.0 Metamyelocytes % (manual) 0 Myelocytes % (Manual) 0 Promyelocytes % (Manual) 0 Blast Cells % (Manual) 0 Reactive Lymphocytes 0 Platelet Estimate Adequate Sodium Level 149 H 136-145 mmol/L Potassium Level 3.9 3.5-5.1 mmol/L Chloride Level 124 H 98-107 mmol/L Carbon Dioxide Level 12 L 20-31 mmol/L Anion Gap 13 5-15 Blood Urea Nitrogen 21 9-23 mg/dL Creatinine 1.09 H 0.550-1.02 mg/dL Glomerular Filtration Rate Calc 53 >90 mL/min BUN/Creatinine Ratio 19.3 10.0-20.0 Serum Glucose 192 H 74-106 mg/dL Calcium Level 7.7 L 8.7-10.4 mg/dL Total Bilirubin 3.9 H 0.2-1.0 mg/dL Aspartate Amino Transferase (AST) 96 H 13-40 U/L Alanine Aminotransferase (ALT) 56 H 7-40 U/L Alkaline Phosphatase 113 46-116 U/L Total Protein 4.5 L 5.7-8.2 g/dL Albumin 1.9 L 3.2-4.8 g/dL Blood Gas Specimen Type Arterial Blood Gas Sample Site Arterial line Blood Gas Patient Temperature 37.0 Arterial Blood Date Drawn [id number] Arterial Blood pH 7.075 *L 7.350-7.450 Arterial Blood Partial Pressure CO2 31.5 L 32.0-45.0 mmHg Arterial Blood Partial Pressure O2 138.3 H 83.0-108.0 mmHg Arterial Blood HCO3 9.0 L 21.0-28.0 mmol/L Arterial Blood Oxygen Saturation 97.5 94.0-98.0 % Arterial Blood Base Excess -19.9 L -2.0-3.0 mmol/L Arterial Blood Oxyhemoglobin 96.4 94.0-98.0 % Arterial Blood Carboxyhemoglobin 0.2 L 0.5-1.5 % Arterial Blood Methemoglobin 0.9 0.0-1.5 % Jeromy Test N/a Blood Gas Total Hemoglobin 12.80 12.0-16.0 g/dL Blood Gas Set Respiration Rate 18.0 Blood Gas Modality Vent - ac FiO2 % 100.0 Blood Gas Tidal Volume 400.0 Blood Gas PEEP or CPAP 5.0 Blood Gas Critical Value Read Back yes Blood Gas Notified Whom freeman Aleman md Blood Gas Notified Time [id number] Blood Gas Notified By rt nneka Blood Gas Liter Flow 4.00 Test 04/13/24 10:22 04/10/24 11:52 04/10/24 11:10 04/10/24 10:21 Range/Units Eosinophils (%) (Auto) 0.1 0.0-7.0 % Eosinophils # (Auto) 0 0-0.8 10 ^3/uL Basophils # (Auto) 0 0-0.2 10 ^3/uL Nucleated Red Blood Cells 0.8 % Phosphorus Level 1.1 L 2.4-5.1 mg/dL Magnesium Level 2.1 1.6-2.6 mg/dL POC Glucose 141 H 70-106 mg/dl Uric Acid 9.5 H 3.1-7.8 mg/dL Beta-Hydroxybutyric Acid 2.927 H < 0.4 mmol/L Urine Osmolality 345 mOsm/kg Urine Creatinine 48.67 30.0-125.0 mg/dL Urine Protein/Creatinine Ratio 2.06 Urine Sodium 39 L 40-220 mmol/L Urine Potassium 41 12-62 mmol/L Urine Total Protein 100.4 H 1-14 mg/dL Test 04/10/24 02:15 04/09/24 08:50 04/09/24 07:00 04/08/24 11:30 Range/Units Magnesium Lvl (Mg Sulfate Therapy) 1.87 L 4.0-7.1 mg/dL Urine Opiates Screen Neg NEGATIVE Urine Fentanyl Screen Neg NEGATIVE Urine Barbiturates Screen Neg NEGATIVE Urine Phencyclidine Screen Neg NEGATIVE Urine Amphetamines Screen Neg NEGATIVE Urine Benzodiazepines Screen Neg NEGATIVE Urine Cocaine Screen Neg NEGATIVE Urine Cannabinoids Screen Neg NEGATIVE Lipase 19 12-53 U/L Vitamin B1 Level 37.0 L 66.5-200.0 nmol/L Test 04/08/24 08:53 04/08/24 06:20 04/08/24 00:40 04/07/24 22:08 Range/Units Folic Acid 5.97 >5.38 ng/mL Influenza Type A Antigen Negative Negative Influenza Type B Antigen Negative Negative SARS-CoV-2 Antigen (Rapid) Negative NEGATIVE Reticulocyte Count (auto) 3.26 H 0.5-1.5 % Hemoglobin A1c < 3.8 <5.7 % A1C Ammonia 24 11-32 umol/L Lactate Dehydrogenase 193 120-246 U/L Vitamin B12 Level 8780 H 211-911 pg/mL Thyroid Stimulating Hormone (TSH) 2.23 0.55-4.78 uIU/mL Salicylates Level < 3.0 -30 mg/dL Hepatitis A IgM Antibody Negative Hepatitis B Surface Antigen Negative Negative Hepatitis B Core IgM Antibody Negative Negative Hepatitis C Antibody Negative Negative Troponin I High Sensitivity 18 </=34 ng/L Test 04/07/24 21:30 04/07/24 18:46 Range/Units Urine Color Light-orange Yellow Urine Clarity Ex.turbid Clear Urine pH 5.5 5.0-9.0 Urine Specific [place] 1.017 1.001-1.035 Urine Protein 1+ H Negative Urine Ketones Trace Negative Urine Blood 2+ H Negative /uL Urine Nitrite 2+ H Negative Urine Bilirubin Negative Negative Urine Urobilinogen Normal Negative mg/dL Urine Leukocyte Esterase 3+ Negative /uL Urine RBC 16 0 - 4 /hpf Urine WBC 564 0 - 5 /hpf Urine WBC Clumps Present None Seen /hpf Urine Squamous Epithelial Cells Few <5 /hpf Urine Bacteria Mod H None Seen /hpf Urine Glucose Normal Normal mg/dL B-Type Natriuretic Peptide 183.49 0-100 pg/mL Microbiology Date/Time Source Procedure Growth Status 04/08/24 21:15 Nose MRSA Screen - Final Complete 04/08/24 00:40 Blood Blood Culture - Final NO GROWTH AFTER 5 DAYS OF INCUBATION. Complete 04/07/24 21:30 Urine - Loz[place] Port Urine Culture - Final Complete Assessment Impression: Acute hypoxic respiratory failure On mechanical ventilator Shock Acute metabolic encephalopathy Aspiration pneumonia Pneumonia, likely gram negative Plan: s/p intubation on mechanical ventilator. CXR image and report reviewed. Devices in place. Airspace disease worsening in the left lower lobe. No pneumothorax. No pleural effusion. ABG reviewed, acidemia. On AC mode; RR 18, VT 400, PEEP 5, FiO2 70% Titrate FIO2 to keep O2 saturation above 90%. VAP bundle. Daily ABG and CXR while intubated Sedate for ventilator synchrony - on Versed Patient is too unstable for CT head. Continue antibiotics. F/u cultures. On pressors for hemodynamic support Levophed 12 mcg/min, vasopressin 0.03 units/min Titrate to keep mean arterial pressure greater than 65 mmHg. Monitor renal function Monitor electrolytes. Supplement as necessary. Monitor ins and outs. Maintain euvolemia. GI prophylaxis. DVT prophylaxis. Prognosis: Poor given patient's multiple co-morbidities. Condition: Critical Rest of plan per hospitalist and other consultants. A total of 35 minutes of critical care time was spent reviewing the patient record, examining the patient, making a diagnostic and therapeutic plan, discussing this plan with the medical personnel, following up on diagnostic studies and following the patient for clinical stability excluding any and all procedures. At least 50% of this time was spent in direct, [id number] contact. Thank you Dr. Curiel for allowing me to participate in this patient's care. Further recommendations will depend on the patient's clinical course. Please do not hesitate to contact me if you have any questions or concerns. This medical document was created using an electronic medical record system with Graph[employer] computerized dictation system. Although these documentations are being carefully reviewed, there may still be some phonetic and typographical changes. The errors are purely typographical, due to imperfection on the software program, and do not reflect any compromise in the patient's medical care. Plan discussed with: Other (ENRIQUE Gray/MD Curiel) GUILLERMINA WILLSON MD Apr 14, 2024 00:00
[2024-04-14] MEDS: HYDROCORTISONE SOD SUCC 100 MG/2ML INJ VIAL IV SCH (00:05)
--- NOTE | 2024-04-14 00:11 | DVHPN2 ---
Progress Note - Dictate Date Seen: Apr 13, 2024 Medical Necessity Reason Pt with a Central, PICC or Fol: Yes The following are medically ne: Central Line, PICC Line, Lozada Catheter Subjective Patient was seen and valuated in follow up. Patient is A&O x1. Patient has edema in both upper and lower extremities with weeping. Patient was started on vasopressors for hemodynamic support. HGB 9.5, HCT 28.6, NA 148, CL 121, BUN 25, GLUC 377, AST 84, ALT 49. vital signs Vital Sign Date Time Temp Pulse Resp B/P (MAP) Pulse Ox O2 Delivery O2 Flow Rate FiO2 04/13/24 08:57 82 04/13/24 08:23 97.3 18 110/50 (70) 94 97.3 04/13/24 07:30 Nasal Cannula* 2 28 Total Intake and Output 04/12/24 04/12/24 04/13/24 15:00 23:00 07:00 Intake Total 537.5 ml 1125.0 ml 100 ml Output Total 200 ml Balance 537.5 ml 925.0 ml 100 ml medications Current Medications Medications Dose Ordered Sig/Gus Route Start Time Stop Time Status Last Admin Dose Admin Al Hydrox/Mg Hydrox/Simethicone 5 ml QID MT 04/07/24 22:00 04/12/24 22:00 5 ML Diagnostic Test (Pha) 1 strip IQ4HR 04/08/24 04:00 04/13/24 12:11 1 STRIP Insulin Human Regular IQ4HR SC 04/08/24 04:00 04/13/24 04:09 2 UNITS Dextrose 50 ml UD PRN IV 04/08/24 00:15 04/13/24 10:15 50 ML Pantoprazole Sodium 40 mg DAILY IV 04/09/24 08:00 04/13/24 12:04 40 MG Ondansetron HCl 4 mg Q6HPRN PRN IV 04/09/24 01:15 04/09/24 09:59 4 MG Morphine Sulfate 1 mg Q6HP PRN IV 04/09/24 11:00 Enoxaparin Sodium 40 mg DAILY SC 04/12/24 10:00 04/13/24 12:04 40 MG Cefepime HCl 50 ml @ 12.5 mls/hr Q12H IV 04/11/24 18:00 04/13/24 06:09 12.5 MLS/HR Potassium Chloride 20 meq/ Dextrose/Lactated Ringer's 1,010 ml @ 100 mls/hr Q10H6M IV 04/11/24 16:45 04/13/24 10:21 100 MLS/HR Enteral Nutritional Formula 1,000 ml 30ML/HR GT 04/12/24 14:30 Norepinephrine Bitartrate 250 ml @ 3.75 mls/hr Q24H IV 04/13/24 12:45 UNV objective GENERAL: Awake, alert, oriented x2. Restless. LUNGS: Clear. CARDIOVASCULAR: Heart sounds are good. ABDOMEN: Soft. EXT: +1 pitting edema. SKIN: Pale, clammy. Right arm and hand weeping. laboratory and microbiology Laboratory Tests 04/13/24 10:22 Test 04/13/24 10:22 Range/Units Serum Glucose 377 H 74-106 mg/dL Problem List Questionable atrial fibrillation (takes Eliquis at home). Coronary artery disease status post triple-vessel CABG. Acute on chronic HFrEF, NYHA class III. Sepsis. Hypertension. Hyperlipidemia. CVA with right-sided deficit. Chronic kidney disease. Type 2 diabetes mellitus. Transaminitis. Anemia. Osteoporosis. Dementia. Bed-bound. Assessment/Plan Continued all current supportive medical care. IV antibiotics as ordered. GI prophylactics. Vasopressors for hemodynamic support. Additional plan as per the hospital course. Critical care time of 45 minutes provided to include time spent evaluation of patient at bedside, when appropriate patient/family education for diagnosis, treatment plan, review of pertinent medical information and discussion of care with specialty providers and PCP. Dietary Evaluation Review Recommendations by RD: Protein Supplementation Comments: 1) If NPO > 7 days, consider EN/TPN to meet at least 75% of estimated daily energy needs. 2) Initiate Lucas @ 1 pk bid when medically feasible. 3) Advance diet to 60g CCHO/cardiac when medically feasible, pending SOLUTION COORDINATOR approval. 4) Continue to monitor nutrition-related labs. Expected Outcomes/Goals: 1) diet to advance 2) appetite and labs to improve 3) f/u in 3-5 days Plan discussed with: Other CC Plasma Assessment Blood Product Administration S: 06:45 JONNA MAGANA MD Apr 13, 2024 13:28
[2024-04-14 05:42] LABS: Basophils # (auto) 0.1 10 ^3/uL (0-0.2); Basophils % (auto) 0.4 % (0.0-2.0); Eosinophils # (auto) 0 10 ^3/uL (0-0.8); Eosinophils % (auto) 0.2 % (0.0-7.0); Hematocrit 28.7 % (36.0-46.0); Hemoglobin 9.1 g/dL (12.2-16.2); Lymphocytes # (auto) 0.6 10 ^3/uL (0.4-5.4); Lymphocytes % (auto) 4.8 % (10.0-50.0); Mean Corpuscular Hemoglobin 30.5 pg (28.0-32.0); Mean Corpuscular Hgb Conc. 31.8 g/dL (32.0-36.0); Mean Corpuscular Volume 95.8 fL (80.0-100.0); Monocytes # (auto) 0.1 10 ^3/uL (0-1.3); Monocytes % (auto) 0.8 % (0.0-12.0); Neutrophils # (auto) 11.8 10 ^3/uL (1.6-8.6); Neutrophils % (auto) 93.8 % (37.0-80.0); Nucleated Red Blood Cells % 0.6 %; Platelet Count (auto) 199 10^3/uL (140-450); White Blood Cell 12.6 10^3/uL (4.4-10.8)
[2024-04-14 05:58] LABS: Magnesium 1.9 mg/dL (1.6-2.6)
[2024-04-14 06:00] LABS: Phosphorus 2.5 mg/dL (2.4-5.1)
[2024-04-14 06:04] LABS: Red Cell Distribution Width 22.7 % (11.8-14.3)
[2024-04-14 08:06] LABS: Alkaline Phosphatase 85 U/L (46-116); Anion Gap 16 (5-15); BUN/Creatinine Ratio 23.4 (10.0-20.0)
[2024-04-14 08:11] LABS: Alanine Aminotransferase 40 U/L (7-40); Albumin 2.2 g/dL (3.2-4.8); Aspartate Aminotransferase 74 U/L (13-40); Bilirubin, Total 3.9 mg/dL (0.2-1.0); Blood Urea Nitrogen 26 mg/dL (9-23); Calcium 7.8 mg/dL (8.7-10.4); Carbon Dioxide 13 mmol/L (20-31); Chloride 123 mmol/L (98-107); Glucose 117 mg/dL (74-106); Potassium 3.4 mmol/L (3.5-5.1); Sodium 152 mmol/L (136-145); Total Protein 4.3 g/dL (5.7-8.2)
[2024-04-14] MEDS: MAGNESIUM SULFATE 1GM/100ML 100 ML IV SCH (09:44)
[2024-04-14] MEDS: THIAMINE 100mg/ml INJ (200mg/2ml VIAL) IV ONE (09:50)
--- NOTE | 2024-04-14 09:52 | DVH ---
CHEST RADIOGRAPH Indication: intubated Technique: Single frontal view of the chest was obtained Comparison: XY CHEST XRAY 1 VIEW on DOS: 04/13/24, XY CHEST XRAY 1 VIEW on DOS: 04/13/24, XY CHEST XRAY 1 VIEW on DOS: 04/11/24, XY CHEST XRAY 1 VIEW on DOS: 04/09/24, XY CHEST PORTABLE on DOS: 04/07/24, XY MANUEL ST XRAY 1 VIEW on DOS: 04/13/24 FINDINGS: Lines and Tubes: Unchanged endotracheal tube with its tip above the nora. Unchanged right subclavi an central venous catheter. The nasogastric tube extends to the gastroesophageal junction. Sternotomy wires appear intact. Lungs: Multifocal lung disease, increased particularly in the right lung with small right pleural eff usion. Pleura: Small right pleural effusion. No pneumothorax. Cardiomediastinal contours: Unchanged. Bones: Unremarkable IMPRESSION: 1. Increased multifocal lung disease. 2. Endotracheal tube in satisfactory position.
[2024-04-14] MEDS: POTASSIUM PHOSPHATE 44 MEQ in D5W 5% 250 ML IV ONE ×2 (09:54→18:00)
[2024-04-14] MEDS: SODIUM BICARB 8.4% 50Meq/50ml SYR Vial IV ONE ×2 (10:44→10:55)
[2024-04-14 13:48] LABS: Base Excess -6.6 mmol/L (-2.0-3.0)
[2024-04-14] MEDS ORDERED: POTASSIUM PHOSPHATE 44 MEQ in D5W 5% 250 ML IV ONE (14:00)
[2024-04-14] MEDS ORDERED: ALBUMIN 25% 100 ML IV SCH (14:00)
--- NOTE | 2024-04-14 14:19 | ECG ---
[facility] Test Date: 2024-04-09 Test Time: 16:44:03 Pat Name: AGUEDA GALINDO Department: er Room: 0264 A Gender: F Mucker [place]: ede : 1950 Requested By: FABIAN JOSEPHJJ Order Number: [id number] Reading MD: Tray Mcgarry Measurements Intervals [place] Rate: 108 P: 0 MO: 115 QRS: 34 QRSD: 93 T: 160 QT: 406 QTc: 544 Interpretive Statements Sinus tachycardia Ventricular premature complex Low voltage, extremity and precordial leads Repol abnrm suggests ischemia, lateral leads Prolonged QT interval Electronically Signed On 04-15-2024 17:51:45 PST by Tray Mcgarry Please click the below link to view image of tracing.
[2024-04-14] MEDS ORDERED: FUROSEMIDE 20 MG/2 ML VIAL IV ONE (14:30)
[2024-04-14 14:52] LABS: Lactic Acid w/Reflex 4.7 mmol/L (0.4-2.0)
[2024-04-14] MEDS: ALBUMIN 25% 100 ML IV ONE (15:13)
[2024-04-14] MEDS: BUMETANIDE 2.5mg/10ml (0.25 mg/ml) INJ IV ONE (15:42)
[2024-04-14] MEDS: THIAMINE INJ 500 MG in D5W 5% 50 ML IV SCH (16:33)
[2024-04-14 16:53] LABS: Anion Gap 15 (5-15); Potassium 4.8 mmol/L (3.5-5.1)
[2024-04-14 16:59] LABS: BUN/Creatinine Ratio 22.3 (10.0-20.0)
[2024-04-14 17:07] LABS: Blood Urea Nitrogen 25 mg/dL (9-23); Carbon Dioxide 16 mmol/L (20-31); Chloride 121 mmol/L (98-107); Glucose 197 mg/dL (74-106); Magnesium 2.7 mg/dL (1.6-2.6); Phosphorus 5.3 mg/dL (2.4-5.1); Sodium 152 mmol/L (136-145)
--- NOTE | 2024-04-14 17:17 | DVHPNRES ---
Progress Note Date Seen: Apr 14, 2024 Resident Creating Document: HUONG ARAUJO RESIDENT Medical Necessity Reason Pt with a Central, PICC or Fol: Yes The following are medically ne: Central Line, PICC Line, Lozada Catheter Subjective Review of Systems pt seen and examined at bedside. she is currently sedated and intubated with mech vent VCAC RR 20, TV 400cc, 45% fiO2 and PEEP of 8 currently sedated with fent @ 25 on norepinephrine at 6, vasopressin @ 0.03 ROS could not be done as patient is sedated and intubated Objective vital signs Vital Sign Date Time Temp Pulse Resp B/P (MAP) Pulse Ox O2 Delivery O2 Flow Rate FiO2 04/14/24 16:24 87 20 132/63 (86) 97 45 04/14/24 08:00 Mechanical Ventilator+ 04/14/24 08:00 98.8 209.8 04/14/24 03:00 0 Total Intake and Output 04/13/24 04/13/24 04/14/24 14:59 22:59 06:59 Intake Total 238.85 ml 349.700 ml 285.50 ml Output Total 500 ml 350 ml Balance 238.85 ml -150.300 ml -64.50 ml medications Current Medications Medications Dose Ordered Sig/Gus Route Start Time Stop Time Status Last Admin Dose Admin Al Hydrox/Mg Hydrox/Simethicone 5 ml QID MT 04/07/24 22:00 04/12/24 22:00 5 ML Diagnostic Test (Pha) 1 strip IQ4HR 04/08/24 04:00 04/14/24 16:00 1 STRIP Insulin Human Regular IQ4HR SC 04/08/24 04:00 04/14/24 05:13 2 UNITS Dextrose 50 ml UD PRN IV 04/08/24 00:15 04/13/24 10:15 50 ML Pantoprazole Sodium 40 mg DAILY IV 04/09/24 08:00 04/14/24 09:43 40 MG Enoxaparin Sodium 40 mg DAILY SC 04/12/24 10:00 04/14/24 09:43 40 MG Norepinephrine Bitartrate 250 ml @ 3.75 mls/hr Q24H IV 04/13/24 12:45 04/14/24 01:03 22.5 MLS/HR Meropenem 50 ml @ 17 mls/hr Q12HR IV 04/13/24 22:00 04/14/24 12:47 17 MLS/HR Vancomycin HCl 0 ml @ 0 mls/hr UD IV 04/13/24 15:15 Vancomycin HCl 100 ml @ 200 mls/hr Q12H IV 04/13/24 21:00 04/14/24 09:49 200 MLS/HR Midazolam HCl 50 ml @ 1 mls/hr Q24H IV 04/13/24 15:45 04/13/24 16:44 1 MLS/HR Fentanyl Citrate 250 ml @ 2.5 mls/hr Q24H IV 04/13/24 15:45 04/14/24 03:00 2.5 MLS/HR Vasopressin 20 units/Sodium Chloride 100 ml @ 9 mls/hr Q11H7M IV 04/13/24 15:45 04/13/24 18:35 9 MLS/HR Hydrocortisone Sodium Succinate 50 mg Q6HR IV 04/14/24 00:00 04/14/24 12:47 50 MG Thiamine HCl 500 mg/Dextrose 55 ml @ 100 mls/hr TID IV 04/14/24 14:00 04/16/24 06:32 04/14/24 16:33 100 MLS/HR Examination Physical exam Gen: sedated and intubated, generalized anasarca CVS : normal s1, s2, no murmurs Respi : bilat a/e + Neuro : sedated and intubated Extremity : bilateral pitting edema GI : soft laboratory and microbiology Laboratory Tests 04/14/24 16:17 04/14/24 05:00 Test 04/14/24 16:17 Range/Units Serum Glucose 197 H 74-106 mg/dL Microbiology Date/Time Source Procedure Growth Status 04/13/24 16:50 Sputum Gram Stain - Final Resulted 04/13/24 16:50 Sputum Respiratory Culture - Preliminary Resulted 04/08/24 21:15 Nose MRSA Screen - Final Complete 04/08/24 00:40 Blood Blood Culture - Final NO GROWTH AFTER 5 DAYS OF INCUBATION. Complete 04/07/24 21:30 Urine - [place] Urine Culture - Final Complete Labs and/or images reviewed: Labs reviewed by me, Image(s) reviewed by me Problem List/Assessment/Plan Problem List/Assessment/Plan Assessment/plan #acute metabolic encephalopathy 2/2 sepsis on dementia, ?thiamine def -head CT -thiamine IV #Sepsis due to aspiration pneumonia/ infected wounds #septic vs cardiogenic shock -currently on vasopressin and norepi -IV steroids #acute hypoxic respiratory failure 2/2 aspiration PNA -on mech vent #extravascular fluid overload likely oncotic albumin f/b Lasix #acute on chronic heart failure with reduced ejection fraction 40% --currently on vasopressin and norepi #CAD s/p CABG #dementia #MELVINA likely ATN resolved #infected sacral ulcer -IV antibiotics FULL CODE Case discussion with dr greene Plan discussed with: Other Dietary Evaluation Review Recommendations by RD: Protein Supplementation Comments: 1) If NPO > 7 days, consider EN/TPN to meet at least 75% of estimated daily energy needs. 2) Initiate Lucas @ 1 pk bid when medically feasible. 3) Advance diet to 60g CCHO/cardiac when medically feasible, pending SET UP MECH[employer]IC HEADING MACHINES approval. 4) Continue to monitor nutrition-related labs. Expected Outcomes/Goals: 1) diet to advance 2) appetite and labs to improve 3) f/u in 3-5 days CC Plasma Assessment Blood Product Administration S: 06:45 Date of Service: Apr 14, 2024 Billing Provider: TAMMI GREENE MD Common Visit Codes: [id number] CARE 30-74 MIN HUONG ARAUJO Apr 14, 2024 17:17 TAMMI GREENE MD Apr 15, 2024 20:10
[2024-04-14 17:22] LABS: Lactic Acid w/Reflex 4.8 mmol/L (0.4-2.0)
[2024-04-14 19:35] LABS: Anion Gap 15 (5-15); Potassium 4.7 mmol/L (3.5-5.1)
[2024-04-14 19:41] LABS: BUN/Creatinine Ratio 22.2 (10.0-20.0)
[2024-04-14 19:42] LABS: Blood Urea Nitrogen 26 mg/dL (9-23); Calcium 8.1 mg/dL (8.7-10.4); Carbon Dioxide 16 mmol/L (20-31); Chloride 120 mmol/L (98-107); Glucose 205 mg/dL (74-106); Magnesium 2.7 mg/dL (1.6-2.6); Sodium 151 mmol/L (136-145)
[2024-04-14 20:00] LABS: Phosphorus 5.2 mg/dL (2.4-5.1)
--- NOTE | 2024-04-14 23:35 | DVHPN2 ---
Progress Note - Dictate Date Seen: Apr 14, 2024 Medical Necessity Reason Pt with a Central, PICC or Fol: Yes The following are medically ne: Central Line, PICC Line, Lozada Catheter Subjective Patient was seen and valuated in follow up in the ICU. Patient was intubated for airway protection yesterday afternoon. 35% FiO2. Patient having low grade fevers. Chest x-ray shows increased multifocal lung disease. WBC 12.6, HGB 9.1, HCT 28.7, NA 151, BUN 26, BATON TWIRLER 1.17, CA 8.1, MG 2.7. vital signs Vital Sign Date Time Temp Pulse Resp B/P (MAP) Pulse Ox O2 Delivery O2 Flow Rate FiO2 04/14/24 21:44 68 24 118/53 (74) 100 35 04/14/24 20:45 98.4 209.1 04/14/24 20:00 Mechanical Ventilator+ 04/14/24 03:00 0 Total Intake and Output 04/13/24 04/13/24 04/14/24 15:00 23:00 07:00 Intake Total 238.85 ml 376.950 ml 294.50 ml Output Total 500 ml 350 ml Balance 238.85 ml -123.050 ml -55.50 ml medications Current Medications Medications Dose Ordered Sig/Gus Route Start Time Stop Time Status Last Admin Dose Admin Al Hydrox/Mg Hydrox/Simethicone 5 ml QID MT 04/07/24 22:00 04/12/24 22:00 5 ML Diagnostic Test (Pha) 1 strip IQ4HR 04/08/24 04:00 04/14/24 20:00 1 STRIP Insulin Human Regular IQ4HR SC 04/08/24 04:00 04/14/24 05:13 2 UNITS Dextrose 50 ml UD PRN IV 04/08/24 00:15 04/13/24 10:15 50 ML Pantoprazole Sodium 40 mg DAILY IV 04/09/24 08:00 04/14/24 09:43 40 MG Enoxaparin Sodium 40 mg DAILY SC 04/12/24 10:00 04/14/24 09:43 40 MG Norepinephrine Bitartrate 250 ml @ 3.75 mls/hr Q24H IV 04/13/24 12:45 04/14/24 01:03 22.5 MLS/HR Meropenem 50 ml @ 17 mls/hr Q12HR IV 04/13/24 22:00 04/14/24 22:25 17 MLS/HR Vancomycin HCl 0 ml @ 0 mls/hr UD IV 04/13/24 15:15 Vancomycin HCl 100 ml @ 200 mls/hr Q12H IV 04/13/24 21:00 04/14/24 21:30 200 MLS/HR Midazolam HCl 50 ml @ 1 mls/hr Q24H IV 04/13/24 15:45 04/13/24 16:44 1 MLS/HR Fentanyl Citrate 250 ml @ 2.5 mls/hr Q24H IV 04/13/24 15:45 04/14/24 03:00 2.5 MLS/HR Vasopressin 20 units/Sodium Chloride 100 ml @ 9 mls/hr Q11H7M IV 04/13/24 15:45 04/13/24 18:35 9 MLS/HR Hydrocortisone Sodium Succinate 50 mg Q6HR IV 04/14/24 00:00 04/14/24 18:44 50 MG Thiamine HCl 500 mg/Dextrose 55 ml @ 100 mls/hr TID IV 04/14/24 14:00 04/16/24 06:32 04/14/24 16:33 100 MLS/HR Albumin Human 100 ml @ 100 mls/hr Q12HR IV 04/15/24 10:00 04/17/24 09:59 Bumetanide 1 mg BIDD IV 04/15/24 10:30 objective GENERAL: Intubated on ventilator. LUNGS: Decreased breath sounds. CARDIOVASCULAR: Heart sounds are good. ABDOMEN: Soft. EXT: +1 pitting edema. laboratory and microbiology Laboratory Tests 04/14/24 18:53 04/14/24 05:00 Test 04/14/24 18:53 Range/Units Serum Glucose 205 H 74-106 mg/dL Problem List Questionable atrial fibrillation (takes Eliquis at home). Coronary artery disease status post triple-vessel CABG. Acute on chronic HFrEF, NYHA class III. Sepsis. Hypertension. Hyperlipidemia. CVA with right-sided deficit. Chronic kidney disease. Type 2 diabetes mellitus. Transaminitis. Anemia. Osteoporosis. Dementia. Bed-bound. Assessment/Plan Continued all current supportive medical care. IV antibiotics as ordered. GI prophylactics. Vasopressors for hemodynamic support. Additional plan as per the hospital course. Critical care time of 45 minutes provided to include time spent evaluation of patient at bedside, when appropriate patient/family education for diagnosis, treatment plan, review of pertinent medical information and discussion of care with specialty providers and PCP. Mechanical ventilator parameters, treatment and adjustments have personally been reviewed by me and treatment plan by bark peeler has also been reviewed. Dietary Evaluation Review Recommendations by RD: Protein Supplementation Comments: 1) If NPO > 7 days, consider EN/TPN to meet at least 75% of estimated daily energy needs. 2) Initiate Lucas @ 1 pk bid when medically feasible. 3) Advance diet to 60g CCHO/cardiac when medically feasible, pending BEHAVIOR SPECIALIST approval. 4) Continue to monitor nutrition-related labs. Expected Outcomes/Goals: 1) diet to advance 2) appetite and labs to improve 3) f/u in 3-5 days Plan discussed with: Other CC Plasma Assessment Blood Product Administration S: 06:45 JONNA MAGANA MD Apr 14, 2024 23:35
--- NOTE | 2024-04-14 23:49 | DVHPN2 ---
Progress Note - Dictate Date Seen: Apr 14, 2024 Medical Necessity Reason Pt with a Central, PICC or Fol: Yes The following are medically ne: Central Line, PICC Line, Celaya Catheter Reason for celaya catheter: Strict I&O Subjective Patient seen and examined at bedside. Sedated, intubated on mechanical ventilator. Overnight events reviewed. vital signs Vital Sign Date Time Temp Pulse Resp B/P (MAP) Pulse Ox O2 Delivery O2 Flow Rate FiO2 04/14/24 21:44 68 24 118/53 (74) 100 35 04/14/24 20:45 98.4 209.1 04/14/24 20:00 Mechanical Ventilator+ 04/14/24 03:00 0 Total Intake and Output 04/13/24 04/13/24 04/14/24 15:00 23:00 07:00 Intake Total 238.85 ml 376.950 ml 294.50 ml Output Total 500 ml 350 ml Balance 238.85 ml -123.050 ml -55.50 ml medications Current Medications Medications Dose Ordered Sig/Gus Route Start Time Stop Time Status Last Admin Dose Admin Al Hydrox/Mg Hydrox/Simethicone 5 ml QID MT 04/07/24 22:00 04/12/24 22:00 5 ML Diagnostic Test (Pha) 1 strip IQ4HR 04/08/24 04:00 04/14/24 20:00 1 STRIP Insulin Human Regular IQ4HR SC 04/08/24 04:00 04/14/24 05:13 2 UNITS Dextrose 50 ml UD PRN IV 04/08/24 00:15 04/13/24 10:15 50 ML Pantoprazole Sodium 40 mg DAILY IV 04/09/24 08:00 04/14/24 09:43 40 MG Enoxaparin Sodium 40 mg DAILY SC 04/12/24 10:00 04/14/24 09:43 40 MG Norepinephrine Bitartrate 250 ml @ 3.75 mls/hr Q24H IV 04/13/24 12:45 04/14/24 01:03 22.5 MLS/HR Meropenem 50 ml @ 17 mls/hr Q12HR IV 04/13/24 22:00 04/14/24 22:25 17 MLS/HR Vancomycin HCl 0 ml @ 0 mls/hr UD IV 04/13/24 15:15 Vancomycin HCl 100 ml @ 200 mls/hr Q12H IV 04/13/24 21:00 04/14/24 21:30 200 MLS/HR Midazolam HCl 50 ml @ 1 mls/hr Q24H IV 04/13/24 15:45 04/13/24 16:44 1 MLS/HR Fentanyl Citrate 250 ml @ 2.5 mls/hr Q24H IV 04/13/24 15:45 04/14/24 03:00 2.5 MLS/HR Vasopressin 20 units/Sodium Chloride 100 ml @ 9 mls/hr Q11H7M IV 04/13/24 15:45 04/13/24 18:35 9 MLS/HR Hydrocortisone Sodium Succinate 50 mg Q6HR IV 04/14/24 00:00 04/14/24 18:44 50 MG Thiamine HCl 500 mg/Dextrose 55 ml @ 100 mls/hr TID IV 04/14/24 14:00 04/16/24 06:32 04/14/24 16:33 100 MLS/HR Albumin Human 100 ml @ 100 mls/hr Q12HR IV 04/15/24 10:00 04/17/24 09:59 Bumetanide 1 mg BIDD IV 04/15/24 10:30 objective Gen.: Patient lying in bed in medical ICU. Sedated, intubated on mechanical ventilator. Head: Normocephalic, atraumatic. Eyes: PERRLA. Ears: Normal external anatomy. Throat: Endotracheal tube and orogastric tube in place. Neck: Supple, trachea midline. Chest: Transmitted breath sounds bilaterally. Decreased air entry bilaterally. No wheezing. Bibasilar crackles. Cardiovascular: Positive S1, positive S2. Regular rate and rhythm. Abdomen: Positive bowel sounds in all 4 quadrants. Soft, nontender, nondistended. : Celaya in place. Normal external genitalia. Rectal: Deferred. Skin: Warm, dry. Intact. Extremities: 2+ radial pulses bilaterally. No lower extremity edema. Neuro: Sedated. laboratory and microbiology Laboratory Tests 04/14/24 18:53 04/14/24 05:00 Test 04/14/24 18:53 Range/Units Serum Glucose 205 H 74-106 mg/dL Assessment/Plan Impression: Acute hypoxic respiratory failure On mechanical ventilator Shock Acute metabolic encephalopathy Aspiration pneumonia Events: Remains on vent support On AC mode; RR 20, VT 400, PEEP 8, FiO2 45% Sedated on Fentanyl drip. On pressors for hemodynamic support Levophed 10 mcg/min, vasopressin 0.03 units/min Titrate to keep mean arterial pressure greater than 65 mmHg. Improving pressor requirements ABG reviewed, notable for alkalemia Patient is not tolerating turns. Poor prognosis. Labs and imaging reviewed. Rest of plan as noted below. Plan: s/p intubation on mechanical ventilator. CXR image and report reviewed. Devices in place. Airspace disease worsening in the left lower lobe. No pneumothorax. No pleural effusion. On AC mode; RR 20, VT 400, PEEP 8, FiO2 45% Titrate FIO2 to keep O2 saturation above 90%. VAP bundle. Daily ABG and CXR while intubated Sedate for ventilator synchrony Patient is too unstable for CT head. Continue antibiotics. F/u cultures. On pressors for hemodynamic support Titrate to keep mean arterial pressure greater than 65 mmHg. Monitor renal function Monitor electrolytes. Supplement as necessary. Monitor ins and outs. Maintain euvolemia. GI prophylaxis. DVT prophylaxis. Prognosis: Poor given patient's multiple co-morbidities. Condition: Critical Rest of plan per hospitalist and other consultants. A total of 35 minutes of critical care time was spent reviewing the patient record, examining the patient, making a diagnostic and therapeutic plan, discussing this plan with the medical personnel, following up on diagnostic studies and following the patient for clinical stability excluding any and all procedures. At least 50% of this time was spent in direct, [id number] contact. Thank you Dr. Curiel for allowing me to participate in this patient's care. Further recommendations will depend on the patient's clinical course. Please do not hesitate to contact me if you have any questions or concerns. This medical document was created using an electronic medical record system with [employer] dictation system. Although these documentations are being carefully reviewed, there may still be some phonetic and typographical changes. The errors are purely typographical, due to imperfection on the software program, and do not reflect any compromise in the patient's medical care. Dietary Evaluation Review Recommendations by RD: Protein Supplementation Comments: 1) If NPO > 7 days, consider EN/TPN to meet at least 75% of estimated daily energy needs. 2) Initiate Lucas @ 1 pk bid when medically feasible. 3) Advance diet to 60g CCHO/cardiac when medically feasible, pending SUPERINTENDENT WAREHOUSE approval. 4) Continue to monitor nutrition-related labs. Expected Outcomes/Goals: 1) diet to advance 2) appetite and labs to improve 3) f/u in 3-5 days Plan discussed with: Other (ENRIQUE Brunner) Critical Care Time(min): 35 CC Plasma Assessment Blood Product Administration S: 06:45 GUILLERMINA WILLSON MD Apr 14, 2024 23:49
[2024-04-15] VITALS (100 sets, daily range): BP systolic 85–146; BP diastolic 32–122; PULSE 64–98; RESP 13–27; TEMP 96.8–98.2; O2SAT 89–100
[2024-04-15 02:39] LABS: Base Excess -9.5 mmol/L (-2.0-3.0)
[2024-04-15 05:58] LABS: Basophils # (auto) 0 10 ^3/uL (0-0.2); Basophils % (auto) 0.1 % (0.0-2.0); Eosinophils # (auto) 0 10 ^3/uL (0-0.8); Eosinophils % (auto) 0.1 % (0.0-7.0); Hematocrit 22.3 % (36.0-46.0); Hemoglobin 7.5 g/dL (12.2-16.2); Lymphocytes # (auto) 0.3 10 ^3/uL (0.4-5.4); Lymphocytes % (auto) 3.7 % (10.0-50.0); Mean Corpuscular Hemoglobin 31.5 pg (28.0-32.0); Mean Corpuscular Hgb Conc. 33.5 g/dL (32.0-36.0); Monocytes # (auto) 0.1 10 ^3/uL (0-1.3); Monocytes % (auto) 0.9 % (0.0-12.0); Neutrophils # (auto) 8.6 10 ^3/uL (1.6-8.6); Neutrophils % (auto) 95.2 % (37.0-80.0); Nucleated Red Blood Cells % 0.9 %; Platelet Count (auto) 130 10^3/uL (140-450); Red Blood Cells 2.37 10^6/uL (4.0-5.20)
[2024-04-15 06:02] LABS: Alanine Aminotransferase 33 U/L (7-40); Alkaline Phosphatase 96 U/L (46-116); Anion Gap 18 (5-15); BUN/Creatinine Ratio 20.5 (10.0-20.0); Potassium 4.2 mmol/L (3.5-5.1)
[2024-04-15 06:11] LABS: Albumin 2.5 g/dL (3.2-4.8); Aspartate Aminotransferase 61 U/L (13-40); Bilirubin, Total 5.4 mg/dL (0.2-1.0); Blood Urea Nitrogen 25 mg/dL (9-23); Carbon Dioxide 14 mmol/L (20-31); Chloride 120 mmol/L (98-107); Glucose 219 mg/dL (74-106); Sodium 152 mmol/L (136-145); Total Protein 4.3 g/dL (5.7-8.2)
[2024-04-15 06:19] LABS: Lactic Acid w/Reflex 6.9 mmol/L (0.4-2.0)
--- NOTE | 2024-04-15 08:00 | DVH ---
CLINICAL INFORMATION: 73 years old, Female; mechanical ventilation. TECHNIQUE: Single AP portable chest radiograph was obtained. COMPARISON: XY CHEST XRAY 1 VIEW on DOS: 04/14/24, XY CHEST XRAY 1 VIEW on DOS: 04/13/24, XY CHEST XRAY 1 VIEW on DOS: 04/13/24 FINDINGS: Stable satisfactory positioning of the endotracheal tube and right subclavian central venous catheter . Enteric tube distal tip is at the level of the gastroesophageal junction with the proximal fenestra tion of the tube up to 6.5 mm proximal to the level of the gastroesophageal junction. Bilateral airsp linda opacities and interstitial opacities are improved. IMPRESSION: 1. Satisfactory positioning of the endotracheal tube and right subclavian central venous catheter. En teric tube distal tip is at the level of the gastroesophageal junction with the proximal fenestration 6.5 cm proximal to the gastroesophageal junction level. 2. Improved bilateral airspace opacities and interstitial opacities.
[2024-04-15] MEDS: FREE WATER GT SCH (08:45)
--- NOTE | 2024-04-15 08:46 | DVHPNRES ---
Progress Note Date Seen: Apr 15, 2024 Resident Creating Document: HUONG ARAUJO RESIDENT Medical Necessity Reason Pt with a Central, PICC or Fol: Yes The following are medically ne: Central Line, PICC Line, Celaya Catheter Reason for celaya catheter: Strict I&O Subjective Review of Systems pt seen and examined at bedside currently sedated and intubated with mech vent RR 20, 400ml TV, 30% fiO2 and PEEP of 8 mm on norepi @ 6 fentanyl @ 50 Objective vital signs Vital Sign Date Time Temp Pulse Resp B/P (MAP) Pulse Ox O2 Delivery O2 Flow Rate FiO2 04/15/24 08:00 97.9 82 17 90/50 (63) 98 208.2 04/15/24 06:20 35 04/14/24 20:00 Mechanical Ventilator+ 04/14/24 03:00 0 Total Intake and Output 04/14/24 04/14/24 04/15/24 15:00 23:00 07:00 Intake Total 442.25 ml 374.75 ml 225.0 ml Output Total 500 ml 850 ml Balance 442.25 ml -125.25 ml -625.0 ml medications Current Medications Medications Dose Ordered Sig/Gus Route Start Time Stop Time Status Last Admin Dose Admin Al Hydrox/Mg Hydrox/Simethicone 5 ml QID MT 04/07/24 22:00 04/12/24 22:00 5 ML Diagnostic Test (Pha) 1 strip IQ4HR 04/08/24 04:00 04/15/24 08:01 1 STRIP Insulin Human Regular IQ4HR SC 04/08/24 04:00 04/15/24 04:00 4 UNITS Dextrose 50 ml UD PRN IV 04/08/24 00:15 04/13/24 10:15 50 ML Pantoprazole Sodium 40 mg DAILY IV 04/09/24 08:00 04/14/24 09:43 40 MG Enoxaparin Sodium 40 mg DAILY SC 04/12/24 10:00 04/14/24 09:43 40 MG Norepinephrine Bitartrate 250 ml @ 3.75 mls/hr Q24H IV 04/13/24 12:45 04/14/24 01:03 22.5 MLS/HR Meropenem 50 ml @ 17 mls/hr Q12HR IV 04/13/24 22:00 04/14/24 22:25 17 MLS/HR Vancomycin HCl 0 ml @ 0 mls/hr UD IV 04/13/24 15:15 Vancomycin HCl 100 ml @ 200 mls/hr Q12H IV 04/13/24 21:00 04/14/24 21:30 200 MLS/HR Midazolam HCl 50 ml @ 1 mls/hr Q24H IV 04/13/24 15:45 04/13/24 16:44 1 MLS/HR Fentanyl Citrate 250 ml @ 2.5 mls/hr Q24H IV 04/13/24 15:45 04/14/24 03:00 2.5 MLS/HR Vasopressin 20 units/Sodium Chloride 100 ml @ 9 mls/hr Q11H7M IV 04/13/24 15:45 04/13/24 18:35 9 MLS/HR Hydrocortisone Sodium Succinate 50 mg Q6HR IV 04/14/24 00:00 04/15/24 05:45 50 MG Thiamine HCl 500 mg/Dextrose 55 ml @ 100 mls/hr TID IV 04/14/24 14:00 04/16/24 06:32 04/15/24 05:48 100 MLS/HR Albumin Human 100 ml @ 100 mls/hr Q12HR IV 04/15/24 10:00 04/17/24 09:59 Bumetanide 1 mg BIDD IV 04/15/24 10:30 Examination Physical exam Gen : sedated and intubated, generalized anasarca CVS Respi GI Neuro extremity roxane pitting edema lower limb laboratory and microbiology Laboratory Tests 04/15/24 05:06 Test 04/15/24 05:06 Range/Units Serum Glucose 219 H 74-106 mg/dL Microbiology Date/Time Source Procedure Growth Status 04/13/24 16:50 Sputum Gram Stain - Final Resulted 04/13/24 16:50 Sputum Respiratory Culture - Preliminary Resulted 04/08/24 21:15 Nose MRSA Screen - Final Complete 04/08/24 00:40 Blood Blood Culture - Final NO GROWTH AFTER 5 DAYS OF INCUBATION. Complete 04/07/24 21:30 Urine - Celaya Port Urine Culture - Final Complete Labs and/or images reviewed: Labs reviewed by me, Image(s) reviewed by me Problem List/Assessment/Plan Problem List/Assessment/Plan Assessment/plan #acute metabolic encephalopathy 2/2 sepsis on dementia, ?thiamine def -head CT -thiamine IV #Sepsis due to aspiration pneumonia/ infected wounds -IV antibiotics #septic vs cardiogenic shock -currently on vasopressin and norepi -IV steroids #acute hypoxic respiratory failure 2/2 aspiration PNA -on mech vent #extravascular fluid overload likely oncotic albumin f/b Lasix #acute on chronic heart failure with reduced ejection fraction 40% --currently on vasopressin and norepi #CAD s/p CABG #dementia #MELVINA likely ATN resolved #infected sacral ulcer -IV antibiotics nutrition started on nepro with carb steady family at bedside explained about the pt condition FULL CODE Case discussion with dr guilherme Aguillon discussed with: Other My Orders My Orders Orders - HUONG ARAUJO RESIDENT Procedure Category Date Status Time Albumin 25% (Albutein) PHA 04/15/24 In Process 10:00 Bumetanide Injection PHA 04/15/24 In Process (Bumex Injection) 10:30 Communication Order ORDERS 04/14/24 Transmitted 18:27 Basic Metabolic Panel LAB 04/15/24 Logged 22:00 Basic Metabolic Panel LAB 04/16/24 Verified 10:00 Basic Metabolic Panel LAB 04/16/24 Verified 22:00 Basic Metabolic Panel LAB 04/17/24 Verified 10:00 Basic Metabolic Panel LAB 04/17/24 Verified 22:00 Magnesium LAB 04/15/24 Logged 10:00 Magnesium LAB 04/15/24 Logged 22:00 Magnesium LAB 04/16/24 Verified 10:00 Magnesium LAB 04/16/24 Verified 22:00 Magnesium LAB 04/17/24 Verified 10:00 Phosphorus LAB 04/15/24 Logged 10:00 Phosphorus LAB 04/15/24 Logged 22:00 Phosphorus LAB 04/16/24 Verified 10:00 Phosphorus LAB 04/16/24 Verified 22:00 Phosphorus LAB 04/17/24 Verified 10:00 Communication Order ORDERS 04/14/24 Transmitted 18:00 Communication Order ORDERS 04/14/24 Transmitted 19:29 Chest Portable XY 04/15/24 Resulted 04:00 Abg W/ Co-Ox RT 04/15/24 Logged 04:00 Basic Metabolic Panel LAB 04/15/24 Logged 10:00 Nutritional PHA 04/15/24 Transmitted Supplements (Nepro 08:45 * Dietary Consult CONS 04/15/24 Transmitted 08:40 Dietary Evaluation Review Recommendations by RD: Protein Supplementation Comments: 1) If NPO > 7 days, consider EN/TPN to meet at least 75% of estimated daily energy needs. 2) Initiate Lucas @ 1 pk bid when medically feasible. 3) Advance diet to 60g CCHO/cardiac when medically feasible, pending BAKERY MANAGER approval. 4) Continue to monitor nutrition-related labs. Expected Outcomes/Goals: 1) diet to advance 2) appetite and labs to improve 3) f/u in 3-5 days CC Plasma Assessment Blood Product Administration S: 06:45 Date of Service: Apr 15, 2024 Billing Provider: TAMMI GREENE MD Common Visit Codes: [id number] CARE 30-74 MIN Coding Comment Comment 49 minutes critical care time HUONG ARAUJO RESIDENT Apr 15, 2024 08:46 TAMMI GREENE MD Apr 16, 2024 09:03
[2024-04-15 09:08] LABS: Magnesium 2.4 mg/dL (1.6-2.6)
[2024-04-15 09:09] LABS: Phosphorus 4.8 mg/dL (2.4-5.1)
[2024-04-15 09:10] LABS: Bilirubin, Direct 4.3 mg/dL (<0.3)
[2024-04-15 09:51] LABS: Anion Gap 16 (5-15); Potassium 3.6 mmol/L (3.5-5.1)
[2024-04-15] MEDS: ALBUMIN 25% 100 ML IV SCH (09:51)
[2024-04-15 09:53] LABS: Carbon Dioxide 17 mmol/L (20-31); Chloride 119 mmol/L (98-107); Sodium 152 mmol/L (136-145)
[2024-04-15 09:57] LABS: BUN/Creatinine Ratio 20.8 (10.0-20.0)
[2024-04-15 09:58] LABS: Magnesium 2.2 mg/dL (1.6-2.6)
[2024-04-15 09:59] LABS: Phosphorus 4.2 mg/dL (2.4-5.1)
[2024-04-15 10:09] LABS: Blood Urea Nitrogen 25 mg/dL (9-23); Glucose 188 mg/dL (74-106)
[2024-04-15] MEDS: BUMETANIDE 2.5mg/10ml (0.25 mg/ml) INJ IV SCH (10:52)
--- NOTE | 2024-04-15 12:46 | DVH ---
EXAM: CT HEAD WITHOUT CONTRAST HISTORY: aloc COMPARISON: CT HEAD WITHOUT CONTRAST on DOS: 04/07/24 TECHNIQUE: Axial images were obtained and reformatted in coronal and sagittal planes. All CT scans at this medical facility are performed using dose modulation techniques as appropriate t o a performed exam including the following: Automated exposure control was utilized; adjustment of th e MA and/or KV according to patient size; and use of iterative reconstruction technique. CT Dose: CTDI volume is 55.02 mGy. Dose-length product is 1084.38 mGy*cm FINDINGS: Supratentorial Region: No evidence for large acute territorial ischemia. No intracranial hemorrhage is noted. Confluent white matter hypoattenuating foci are noted bilaterally, which typically reflect chronic microvascular ischemic changes. Posterior Fossa: No acute abnormality. Brainstem: Subcentimeter hypoattenuating region in left paramedian rachid reflecting an age-indetermi brian, likely chronic infarct. Sellar/Suprasellar Region: Fluid-filled sella with diminutive pituitary, suggestive of empty sella s yndrome, which is commonly an incidental finding of no clinical significance but there exists a well- established association with idiopathic intracranial hypertension. Correlate clinically.. Ventricles, Cisterns, Sulci: Age-appropriate. Orbits: Unremarkable. Paranasal Sinuses: Unremarkable. Mastoid Air Cells: Moderate bilateral mastoid effusions. There is opacification of the bilateral mid dle auditory canals. There is narrowing of the left external auditory canal with mural thickening. Cerumen noted in the bilateral external auditory canals.. Vasculature: Intracranial arterial calcified plaque formation noted. Bones/Soft Tissues: No acute abnormality. Other: The patient is intubated. IMPRESSION: 1. No large acute territorial ischemia or intracranial hemorrhage. 2. Age-indeterminate, probably chronic left paramedian anterior rachid infarct. Correlate clinically. T his finding May have been present in the prior study but because of motion artifact was difficult to appreciate 3. Moderate chronic microvascular ischemic changes. 4. Interval development of bilateral otomastoiditis with moderate bilateral mastoid effusions and flu id opacification of the bilateral middle auditory canals with fluid surrounding the bilateral middle ear ossicles. There is a suggestion of left external otitis. Recommend clinical correlation and ENT c onsultation. 5. Empty sella syndrome.
[2024-04-15] MEDS: VANCOMYCIN 500mg/100mL 100 ML IV SCH (15:05)
--- NOTE | 2024-04-15 19:21 | DVH ---
Upper Extremity Venous Duplex Clinical History: CHANGES IN DISCOLORATION TO RIGHT UPPER ARM Comparison: US BI LAT UPPER DVT on DOS: 04/09/24 Technique: Duplex Doppler evaluation of the venous system of the RIGHT lower neck and upper extremity including color Doppler and spectral/pulsed waveform analysis was performed. Findings: The internal jugular vein demonstrates appropriate compressibility and waveform variability. The subclavian vein is patent on color Doppler evaluation without intraluminal thrombus and demonstra avi waveform variability. The visualized portion of the brachiocephalic vein is patent on color Doppler evaluation without intr aluminal thrombus and demonstrates waveform variability. The axillary vein demonstrates appropriate compressibility and waveform variability. The brachial veins demonstrate appropriate compressibility and patency on Doppler evaluation. Color flow is seen in the radial and ulnar veins. The basilic vein is not compressible shows no flow in the upper forearm. The cephalic vein is not compressible in the upper arm to mid forearm and shows no flow. Moderate subcutaneous edema noted. Impression: 1. Acute occlusive thrombophlebitis of the right basilic and cephalic veins with associated moderate subcutaneous edema. 2. No evidence of DVT in the right upper extremity.
--- NOTE | 2024-04-15 19:54 | DVHPN2 ---
Progress Note Date Seen: Apr 15, 2024 Medical Necessity Reason Pt with a Central, PICC or Fol: Yes The following are medically ne: Central Line, PICC Line, Celaya Catheter Reason for celaya catheter: Strict I&O Subjective Patient reports: Other (intubated) Review of Systems: Deferred Objective vital signs Vital Sign Date Time Temp Pulse Resp B/P (MAP) Pulse Ox O2 Delivery O2 Flow Rate FiO2 04/15/24 18:31 131/62 04/15/24 18:30 96.8 75 19 98 206.2 04/15/24 18:00 30 04/15/24 08:00 Mechanical Ventilator+ 04/14/24 03:00 0 Total Intake and Output 04/14/24 04/14/24 04/15/24 15:00 23:00 07:00 Intake Total 442.25 ml 374.75 ml 225.0 ml Output Total 500 ml 850 ml Balance 442.25 ml -125.25 ml -625.0 ml medications Current Medications Medications Dose Ordered Sig/Gus Route Start Time Stop Time Status Last Admin Dose Admin Al Hydrox/Mg Hydrox/Simethicone 5 ml QID MT 04/07/24 22:00 04/15/24 18:00 5 ML Diagnostic Test (Pha) 1 strip IQ4HR 04/08/24 04:00 04/15/24 16:00 1 STRIP Insulin Human Regular IQ4HR SC 04/08/24 04:00 04/15/24 04:00 4 UNITS Dextrose 50 ml UD PRN IV 04/08/24 00:15 04/13/24 10:15 50 ML Pantoprazole Sodium 40 mg DAILY IV 04/09/24 08:00 04/15/24 09:49 40 MG Enoxaparin Sodium 40 mg DAILY SC 04/12/24 10:00 04/15/24 09:50 40 MG Norepinephrine Bitartrate 250 ml @ 3.75 mls/hr Q24H IV 04/13/24 12:45 04/15/24 15:07 3.75 MLS/HR Meropenem 50 ml @ 17 mls/hr Q12HR IV 04/13/24 22:00 04/15/24 09:54 17 MLS/HR Vancomycin HCl 0 ml @ 0 mls/hr UD IV 04/13/24 15:15 Midazolam HCl 50 ml @ 1 mls/hr Q24H IV 04/13/24 15:45 04/13/24 16:44 1 MLS/HR Fentanyl Citrate 250 ml @ 2.5 mls/hr Q24H IV 04/13/24 15:45 04/14/24 03:00 2.5 MLS/HR Vasopressin 20 units/Sodium Chloride 100 ml @ 9 mls/hr Q11H7M IV 04/13/24 15:45 04/15/24 09:49 9 MLS/HR Hydrocortisone Sodium Succinate 50 mg Q6HR IV 04/14/24 00:00 04/15/24 18:31 50 MG Thiamine HCl 500 mg/Dextrose 55 ml @ 100 mls/hr TID IV 04/14/24 14:00 04/16/24 06:32 04/15/24 15:06 100 MLS/HR Albumin Human 100 ml @ 100 mls/hr Q12HR IV 04/15/24 10:00 04/17/24 09:59 04/15/24 09:51 100 MLS/HR Bumetanide 1 mg BIDD IV 04/15/24 10:30 04/15/24 18:31 1 MG Enteral Nutritional Formula 1,000 ml 30ML/HR GT 04/15/24 08:45 Purified Water 100 ml Q6HR GT 04/15/24 08:45 04/15/24 18:00 100 ML Artificial Tears 1 drop Q6HP PRN EACHEYE 04/15/24 09:00 Vancomycin HCl 100 ml @ 200 mls/hr Q12H IV 04/15/24 15:00 04/15/24 15:05 200 MLS/HR Examination: GENERAL:Abnormal, MSK:Abnormal (edema), SKIN:Abnormal, NEURO:Abnormal laboratory and microbiology Laboratory Tests 04/15/24 09:10 04/15/24 05:06 Test 04/15/24 09:10 Range/Units Serum Glucose 188 H 74-106 mg/dL Microbiology Date/Time Source Procedure Growth Status 04/13/24 16:50 Sputum Gram Stain - Final Resulted 04/13/24 16:50 Sputum Respiratory Culture - Preliminary Resulted 04/08/24 21:15 Nose MRSA Screen - Final Complete 04/08/24 00:40 Blood Blood Culture - Final NO GROWTH AFTER 5 DAYS OF INCUBATION. Complete 04/07/24 21:30 Urine - Celaya Port Urine Culture - Final Complete Problem List/Assessment/Plan Problem List/Assessment/Plan Acute kidney injury hemodynamically mediated in the setting of shock Septic shock Metabolic acidosis /lactic acidosis Urinary tract infection Sacral decubitus ulcers Hypoalbuminemia hypernatremia hypokalemia recs Acidosis sec to lactic acidosis---correct underlying cause no need for bicarb ph noted on bumex will f/u Plan discussed with: Other Dietary Evaluation Review Recommendations by RD: Protein Supplementation Comments: 1) If NPO > 7 days, consider EN/TPN to meet at least 75% of estimated daily energy needs. 2) Initiate Lucas @ 1 pk bid when medically feasible. 3) Advance diet to 60g CCHO/cardiac when medically feasible, pending CLAY BURNER approval. 4) Continue to monitor nutrition-related labs. Expected Outcomes/Goals: 1) diet to advance 2) appetite and labs to improve 3) f/u in 3-5 days CC Plasma Assessment Blood Product Administration S: 06:45 MONTRELL FUCHS MD Apr 15, 2024 19:54
[2024-04-15 22:35] LABS: Anion Gap 14 (5-15)
[2024-04-15 22:40] LABS: Magnesium 2.1 mg/dL (1.6-2.6)
[2024-04-15 22:42] LABS: Phosphorus 4.1 mg/dL (2.4-5.1)
[2024-04-15 22:44] LABS: BUN/Creatinine Ratio 19.5 (10.0-20.0); Blood Urea Nitrogen 24 mg/dL (9-23); Calcium 8.4 mg/dL (8.7-10.4); Carbon Dioxide 18 mmol/L (20-31); Chloride 118 mmol/L (98-107); Glucose 222 mg/dL (74-106); Potassium 3.3 mmol/L (3.5-5.1); Sodium 150 mmol/L (136-145)
--- NOTE | 2024-04-15 22:47 | DVHPN2 ---
Progress Note - Dictate Date Seen: Apr 15, 2024 Medical Necessity Reason Pt with a Central, PICC or Fol: Yes The following are medically ne: Central Line, PICC Line, Celaya Catheter Reason for celaya catheter: Strict I&O Subjective Patient was seen and valuated in follow up in the ICU. Patient is intubated and sedated on ventilator. 30% FiO2. Chest x-ray shows improved bilateral airspace opacities and interstitial opacities. CT head shows no large acute territorial ischemia or intracranial hemorrhage. Age-indeterminate, probably chronic left paramedian anterior rachid infarct. Correlate clinically. This finding May have been present in the prior study but because of motion artifact was difficult to appreciate. Moderate chronic microvascular ischemic changes. Interval development of bilateral otomastoiditis with moderate bilateral mastoid effusions and fluid opacification of the bilateral middle auditory canals with fluid surrounding the bilateral middle ear ossicles. There is a suggestion of left external otitis. Empty sella syndrome. Upper Extremity Venous Duplex revealed an acute occlusive thrombophlebitis of the right basilic and cephalic veins with associated moderate subcutaneous edema. HGB 7.5, HT 22.3, NA 152, BUN 25, Life Advisor 1.20, vital signs Vital Sign Date Time Temp Pulse Resp B/P (MAP) Pulse Ox O2 Delivery O2 Flow Rate FiO2 04/15/24 22:16 99/52 04/15/24 22:05 86 22 100 30 04/15/24 18:30 96.8 206.2 04/15/24 08:00 Mechanical Ventilator+ 04/14/24 03:00 0 Total Intake and Output 04/14/24 04/14/24 04/15/24 15:00 23:00 07:00 Intake Total 442.25 ml 374.75 ml 235.0 ml Output Total 500 ml 850 ml Balance 442.25 ml -125.25 ml -615.0 ml medications Current Medications Medications Dose Ordered Sig/Gus Route Start Time Stop Time Status Last Admin Dose Admin Al Hydrox/Mg Hydrox/Simethicone 5 ml QID MT 04/07/24 22:00 04/15/24 21:47 5 ML Diagnostic Test (Pha) 1 strip IQ4HR 04/08/24 04:00 04/15/24 20:00 1 STRIP Insulin Human Regular IQ4HR SC 04/08/24 04:00 04/15/24 04:00 4 UNITS Dextrose 50 ml UD PRN IV 04/08/24 00:15 04/13/24 10:15 50 ML Pantoprazole Sodium 40 mg DAILY IV 04/09/24 08:00 04/15/24 09:49 40 MG Enoxaparin Sodium 40 mg DAILY SC 04/12/24 10:00 04/15/24 09:50 40 MG Norepinephrine Bitartrate 250 ml @ 3.75 mls/hr Q24H IV 04/13/24 12:45 04/15/24 15:07 3.75 MLS/HR Meropenem 50 ml @ 17 mls/hr Q12HR IV 04/13/24 22:00 04/15/24 21:43 17 MLS/HR Vancomycin HCl 0 ml @ 0 mls/hr UD IV 04/13/24 15:15 Midazolam HCl 50 ml @ 1 mls/hr Q24H IV 04/13/24 15:45 04/13/24 16:44 1 MLS/HR Fentanyl Citrate 250 ml @ 2.5 mls/hr Q24H IV 04/13/24 15:45 04/14/24 03:00 2.5 MLS/HR Vasopressin 20 units/Sodium Chloride 100 ml @ 9 mls/hr Q11H7M IV 04/13/24 15:45 04/15/24 22:16 9 MLS/HR Hydrocortisone Sodium Succinate 50 mg Q6HR IV 04/14/24 00:00 04/15/24 18:31 50 MG Thiamine HCl 500 mg/Dextrose 55 ml @ 100 mls/hr TID IV 04/14/24 14:00 04/16/24 06:32 04/15/24 21:46 100 MLS/HR Albumin Human 100 ml @ 100 mls/hr Q12HR IV 04/15/24 10:00 04/17/24 09:59 04/15/24 21:45 100 MLS/HR Bumetanide 1 mg BIDD IV 04/15/24 10:30 04/15/24 18:31 1 MG Enteral Nutritional Formula 1,000 ml 30ML/HR GT 04/15/24 08:45 Purified Water 100 ml Q6HR GT 04/15/24 08:45 04/15/24 18:00 100 ML Artificial Tears 1 drop Q6HP PRN EACHEYE 04/15/24 09:00 Vancomycin HCl 100 ml @ 200 mls/hr Q12H IV 04/15/24 15:00 04/15/24 15:05 200 MLS/HR objective GENERAL: Intubated on ventilator. LUNGS: Decreased breath sounds. CARDIOVASCULAR: Heart sounds are good. ABDOMEN: Soft. EXT: +1 pitting edema. laboratory and microbiology Laboratory Tests 04/15/24 05:06 Test 04/15/24 22:00 Range/Units Serum Glucose Pending Problem List Questionable atrial fibrillation (takes Eliquis at home). Coronary artery disease status post triple-vessel CABG. Acute on chronic HFrEF, NYHA class III. Sepsis. Hypertension. Hyperlipidemia. CVA with right-sided deficit. Chronic kidney disease. Type 2 diabetes mellitus. Transaminitis. Anemia. Osteoporosis. Dementia. Bed-bound. Assessment/Plan Continued all current supportive medical care. IV antibiotics as ordered. GI prophylactics. Vasopressors for hemodynamic support. Additional plan as per the hospital course. Critical care time of 45 minutes provided to include time spent evaluation of patient at bedside, when appropriate patient/family education for diagnosis, treatment plan, review of pertinent medical information and discussion of care with specialty providers and PCP. Mechanical ventilator parameters, treatment and adjustments have personally been reviewed by me and treatment plan by healthcare marketer has also been reviewed. Dietary Evaluation Review Recommendations by RD: Protein Supplementation Comments: 1) If NPO > 7 days, consider EN/TPN to meet at least 75% of estimated daily energy needs. 2) Initiate Lucas @ 1 pk bid when medically feasible. 3) Advance diet to 60g CCHO/cardiac when medically feasible, pending CAREER INFORMATION SPECIALIST approval. 4) Continue to monitor nutrition-related labs. Expected Outcomes/Goals: 1) diet to advance 2) appetite and labs to improve 3) f/u in 3-5 days Plan discussed with: Other CC Plasma Assessment Blood Product Administration S: 06:45 JONNA MAGANA MD Apr 15, 2024 22:47
[2024-04-16] VITALS (119 sets, daily range): BP systolic 93–167; BP diastolic 43–77; PULSE 64–96; RESP 14–26; TEMP 97–98.2; O2SAT 90–100
[2024-04-16] MEDS: POTASSIUM EFFERVESENT TAB 25 MEQ GT ONE (00:11)
[2024-04-16 05:31] LABS: Potassium 3.6 mmol/L (3.5-5.1)
[2024-04-16 05:32] LABS: Anion Gap 14 (5-15); Calcium 8.9 mg/dL (8.7-10.4); Carbon Dioxide 20 mmol/L (20-31)
--- NOTE | 2024-04-16 05:32 | DVH ---
CHEST RADIOGRAPH Indication: mech vent Technique: Single frontal view of the chest was obtained COMPARISON: XY CHEST PORTABLE on DOS: 04/15/24, XY CHEST XRAY 1 VIEW on DOS: 04/14/24, XY CHEST XRAY 1 EW on DOS: 04/13/24, XY CHEST XRAY 1 VIEW on DOS: 04/13/24, XY CHEST XRAY 1 VIEW on DOS: 04/11/24 FINDINGS: Lines and Tubes: Median sternotomy. Endotracheal tube and enteric catheter and right PICC in satisfa ctory position. Lungs: Focal airspace disease. Pleura: No effusion. No pneumothorax. Cardiomediastinal contours: Unremarkable Bones: Unremarkable IMPRESSION: Lines and tubes in satisfactory position. No significant interval change.
[2024-04-16 05:37] LABS: BUN/Creatinine Ratio 20.5 (10.0-20.0)
[2024-04-16 05:38] LABS: Magnesium 1.9 mg/dL (1.6-2.6)
[2024-04-16 06:02] LABS: Blood Urea Nitrogen 25 mg/dL (9-23); Chloride 118 mmol/L (98-107); Glucose 113 mg/dL (74-106); Sodium 152 mmol/L (136-145)
[2024-04-16 08:58] LABS: Base Excess -5.3 mmol/L (-2.0-3.0)
--- NOTE | 2024-04-16 09:10 | ECG ---
[facility] Test Date: 2024-04-09 Test Time: 11:08:11 Pat Name: AGUEDA GALINDO Department: ER Room: 0264 A Gender: F [place] Drier: GABRIELA : 1950 Requested By: KIMBERLY GARCIA Order Number: [id number] Reading MD: Tray Mcgarry Measurements Intervals [place] Rate: 104 P: 0 [place]: 0 QRS: -22 QRSD: 127 T: 156 QT: 365 QTc: 481 Interpretive Statements Atrial fibrillation Left bundle branch block Artifact in lead(s) I,II,III,aVR,aVL,aVF,V1 Electronically Signed On 04-17-2024 9:37:35 PST by Tray Mcgarry Please click the below link to view image of tracing.
[2024-04-16] MEDS: HYDROCORTISONE SOD SUCC 100 MG/2ML INJ VIAL IV SCH (09:31)
[2024-04-16 09:59] LABS: Basophils # (auto) 0 10 ^3/uL (0-0.2); Eosinophils # (auto) 0 10 ^3/uL (0-0.8); Eosinophils % (auto) 0.1 % (0.0-7.0); Lymphocytes # (auto) 0.4 10 ^3/uL (0.4-5.4); Mean Corpuscular Hemoglobin 31.4 pg (28.0-32.0); Monocytes # (auto) 0.1 10 ^3/uL (0-1.3); Neutrophils # (auto) 5.9 10 ^3/uL (1.6-8.6)
[2024-04-16 10:01] LABS: Basophils % (auto) 0.3 % (0.0-2.0); Hematocrit 17.2 % (36.0-46.0); Lymphocytes % (auto) 6.3 % (10.0-50.0); Mean Corpuscular Hgb Conc. 34.2 g/dL (32.0-36.0); Mean Corpuscular Volume 91.6 fL (80.0-100.0); Monocytes % (auto) 1.6 % (0.0-12.0); Neutrophils % (auto) 91.7 % (37.0-80.0); Nucleated Red Blood Cells % 1.3 %; Platelet Count (auto) 81 10^3/uL (140-450); Red Blood Cells 1.88 10^6/uL (4.0-5.20); Red Cell Distribution Width 20.6 % (11.8-14.3); White Blood Cell 6.5 10^3/uL (4.4-10.8)
[2024-04-16 10:03] LABS: Hemoglobin 5.9 g/dL (12.2-16.2)
[2024-04-16 10:09] LABS: Anion Gap 11 (5-15); Calcium 8.9 mg/dL (8.7-10.4); Carbon Dioxide 23 mmol/L (20-31)
[2024-04-16 10:14] LABS: BUN/Creatinine Ratio 19.5 (10.0-20.0)
[2024-04-16 10:16] LABS: Phosphorus 3.2 mg/dL (2.4-5.1)
[2024-04-16 10:17] LABS: Blood Urea Nitrogen 24 mg/dL (9-23); Chloride 118 mmol/L (98-107); Glucose 129 mg/dL (74-106); Potassium 3.4 mmol/L (3.5-5.1); Sodium 152 mmol/L (136-145)
[2024-04-16 11:03] LABS: Platelet Estimate Decreased
[2024-04-16 11:04] LABS: Anisocytosis Slight; Ovalocytes FEW; Target Cell FEW
[2024-04-16 11:40] LABS: Albumin 3.1 g/dL (3.2-4.8); Bilirubin, Direct 5.2 mg/dL (<0.3); Bilirubin, Total 6.5 mg/dL (0.2-1.0); Total Protein 4.8 g/dL (5.7-8.2)
--- NOTE | 2024-04-16 15:10 | DVHPN2 ---
Progress Note - Dictate Date Seen: Apr 16, 2024 Medical Necessity Reason Pt with a Central, PICC or Fol: Yes The following are medically ne: Central Line, PICC Line, Celaya Catheter Reason for celaya catheter: Strict I&O Subjective Patient was seen and valuated in follow up in the ICU. Patient is intubated and sedated on ventilator. 30% FiO2. HGB 5.9, HCT 17.2, NA 152, K 3.4, CL 118, BUN 24, CADDIE SUPERVISOR 1.23, Ammonia 417. vital signs Vital Sign Date Time Temp Pulse Resp B/P (MAP) Pulse Ox O2 Delivery O2 Flow Rate FiO2 04/16/24 13:30 97.5 88 20 110/62 (78) 100 207.5 04/16/24 13:16 30 04/16/24 08:00 Mechanical Ventilator+ Total Intake and Output 04/15/24 04/15/24 04/16/24 15:00 23:00 07:00 Intake Total 246.50 ml 642.00 ml 474.25 ml Output Total 975 ml 1000 ml Balance 246.50 ml -333.00 ml -525.75 ml medications Current Medications Medications Dose Ordered Sig/Gus Route Start Time Stop Time Status Last Admin Dose Admin Al Hydrox/Mg Hydrox/Simethicone 5 ml QID MT 04/07/24 22:00 04/16/24 12:13 5 ML Diagnostic Test (Pha) 1 strip IQ4HR 04/08/24 04:00 04/16/24 12:13 1 STRIP Insulin Human Regular IQ4HR SC 04/08/24 04:00 04/16/24 00:12 4 UNITS Dextrose 50 ml UD PRN IV 04/08/24 00:15 04/13/24 10:15 50 ML Pantoprazole Sodium 40 mg DAILY IV 04/09/24 08:00 04/16/24 09:31 40 MG Enoxaparin Sodium 40 mg DAILY SC 04/12/24 10:00 04/15/24 09:50 40 MG Norepinephrine Bitartrate 250 ml @ 3.75 mls/hr Q24H IV 04/13/24 12:45 04/15/24 15:07 3.75 MLS/HR Meropenem 50 ml @ 17 mls/hr Q12HR IV 04/13/24 22:00 04/16/24 09:32 17 MLS/HR Vancomycin HCl 0 ml @ 0 mls/hr UD IV 04/13/24 15:15 Midazolam HCl 50 ml @ 1 mls/hr Q24H IV 04/13/24 15:45 04/13/24 16:44 1 MLS/HR Fentanyl Citrate 250 ml @ 2.5 mls/hr Q24H IV 04/13/24 15:45 04/16/24 06:16 5 MLS/HR Vasopressin 20 units/Sodium Chloride 100 ml @ 9 mls/hr Q11H7M IV 04/13/24 15:45 04/16/24 09:32 9 MLS/HR Albumin Human 100 ml @ 100 mls/hr Q12HR IV 04/15/24 10:00 04/17/24 09:59 04/15/24 21:45 100 MLS/HR Bumetanide 1 mg BIDD IV 04/15/24 10:30 04/16/24 06:00 1 MG Enteral Nutritional Formula 1,000 ml 30ML/HR GT 04/15/24 08:45 Purified Water 100 ml Q6HR GT 04/15/24 08:45 04/16/24 12:13 100 ML Artificial Tears 1 drop Q6HP PRN EACHEYE 04/15/24 09:00 Vancomycin HCl 100 ml @ 200 mls/hr Q12H IV 04/15/24 15:00 04/16/24 03:00 200 MLS/HR Hydrocortisone Sodium Succinate 50 mg Q12HR IV 04/16/24 10:00 04/16/24 09:31 50 MG objective GENERAL: Intubated on ventilator. LUNGS: Decreased breath sounds. CARDIOVASCULAR: Heart sounds are good. ABDOMEN: Soft. EXT: +1 pitting edema. laboratory and microbiology Laboratory Tests 04/16/24 09:46 Test 04/16/24 09:46 Range/Units Serum Glucose 129 H 74-106 mg/dL Problem List Questionable atrial fibrillation (takes Eliquis at home). Coronary artery disease status post triple-vessel CABG. Acute on chronic HFrEF, NYHA class III. Sepsis. Hypertension. Hyperlipidemia. CVA with right-sided deficit. Chronic kidney disease. Type 2 diabetes mellitus. Transaminitis. Anemia. Osteoporosis. Dementia. Bed-bound. Assessment/Plan Continued all current supportive medical care. IV antibiotics as ordered. GI prophylactics. Vasopressors for hemodynamic support. Additional plan as per the hospital course. Critical care time of 45 minutes provided to include time spent evaluation of patient at bedside, when appropriate patient/family education for diagnosis, treatment plan, review of pertinent medical information and discussion of care with specialty providers and PCP. Mechanical ventilator parameters, treatment and adjustments have personally been reviewed by me and treatment plan by shake cutter has also been reviewed. Dietary Evaluation Review Recommendations by RD: Protein Supplementation Comments: 1) If NPO > 7 days, consider EN/TPN to meet at least 75% of estimated daily energy needs. 2) Initiate Lucas @ 1 pk bid when medically feasible. 3) Advance diet to 60g CCHO/cardiac when medically feasible, pending SENIOR CHEMICAL ENGINEER approval. 4) Continue to monitor nutrition-related labs. Expected Outcomes/Goals: 1) diet to advance 2) appetite and labs to improve 3) f/u in 3-5 days Plan discussed with: Other CC Plasma Assessment Blood Product Administration S: [id number] JONNA MAGANA MD Apr 16, 2024 14:03
--- NOTE | 2024-04-16 16:56 | DVHPN2 ---
Progress Note Date Seen: Apr 16, 2024 Medical Necessity Reason Pt with a Central, PICC or Fol: Yes The following are medically ne: Central Line, PICC Line, Celaya Catheter Reason for celaya catheter: Strict I&O Subjective Patient reports: Other (intubated) Review of Systems: Deferred Objective vital signs Vital Sign Date Time Temp Pulse Resp B/P (MAP) Pulse Ox O2 Delivery O2 Flow Rate FiO2 04/16/24 16:10 97.7 69 20 145/64 97.7 04/16/24 15:30 100 04/16/24 15:21 30 04/16/24 08:00 Mechanical Ventilator+ Total Intake and Output 04/15/24 04/15/24 04/16/24 15:00 23:00 07:00 Intake Total 246.50 ml 642.00 ml 492.00 ml Output Total 975 ml 1000 ml Balance 246.50 ml -333.00 ml -508.00 ml medications Current Medications Medications Dose Ordered Sig/Gus Route Start Time Stop Time Status Last Admin Dose Admin Al Hydrox/Mg Hydrox/Simethicone 5 ml QID MT 04/07/24 22:00 04/16/24 12:13 5 ML Diagnostic Test (Pha) 1 strip IQ4HR 04/08/24 04:00 04/16/24 12:13 1 STRIP Insulin Human Regular IQ4HR SC 04/08/24 04:00 04/16/24 00:12 4 UNITS Dextrose 50 ml UD PRN IV 04/08/24 00:15 04/13/24 10:15 50 ML Pantoprazole Sodium 40 mg DAILY IV 04/09/24 08:00 04/16/24 09:31 40 MG Enoxaparin Sodium 40 mg DAILY SC 04/12/24 10:00 04/15/24 09:50 40 MG Norepinephrine Bitartrate 250 ml @ 3.75 mls/hr Q24H IV 04/13/24 12:45 04/15/24 15:07 3.75 MLS/HR Meropenem 50 ml @ 17 mls/hr Q12HR IV 04/13/24 22:00 04/16/24 09:32 17 MLS/HR Vancomycin HCl 0 ml @ 0 mls/hr UD IV 04/13/24 15:15 Midazolam HCl 50 ml @ 1 mls/hr Q24H IV 04/13/24 15:45 1/5/25 16:44 1 MLS/HR Fentanyl Citrate 250 ml @ 2.5 mls/hr Q24H IV 04/13/24 15:45 04/16/24 06:16 5 MLS/HR Vasopressin 20 units/Sodium Chloride 100 ml @ 9 mls/hr Q11H7M IV 04/13/24 15:45 04/16/24 09:32 9 MLS/HR Albumin Human 100 ml @ 100 mls/hr Q12HR IV 04/15/24 10:00 04/17/24 09:59 04/15/24 21:45 100 MLS/HR Bumetanide 1 mg BIDD IV 04/15/24 10:30 04/16/24 06:00 1 MG Enteral Nutritional Formula 1,000 ml 30ML/HR GT 04/15/24 08:45 Purified Water 100 ml Q6HR GT 04/15/24 08:45 04/16/24 12:13 100 ML Artificial Tears 1 drop Q6HP PRN EACHEYE 04/15/24 09:00 Vancomycin HCl 100 ml @ 200 mls/hr Q12H IV 04/15/24 15:00 04/16/24 03:00 200 MLS/HR Hydrocortisone Sodium Succinate 50 mg Q12HR IV 04/16/24 10:00 04/16/24 09:31 50 MG Examination: GENERAL:Abnormal, LUNGS:Abnormal, MSK:Abnormal, NEURO:Abnormal laboratory and microbiology Laboratory Tests 04/16/24 09:46 Test 04/16/24 09:46 Range/Units Serum Glucose 129 H 74-106 mg/dL Microbiology Date/Time Source Procedure Growth Status 04/13/24 16:50 Sputum Gram Stain - Final Resulted 04/13/24 16:50 Respiratory Culture - Preliminary Staphylococcus aureus Presumptive Nini albicans Resulted 04/08/24 21:15 Nose MRSA Screen - Final Complete 04/08/24 00:40 Blood Blood Culture - Final NO GROWTH AFTER 5 DAYS OF INCUBATION. Complete 04/07/24 21:30 Urine - Celaya Port Urine Culture - Final Complete Problem List/Assessment/Plan Problem List/Assessment/Plan Acute kidney injury hemodynamically mediated in the setting of shock Septic shock Metabolic acidosis /lactic acidosis Urinary tract infection Sacral decubitus ulcers Hypoalbuminemia hypernatremia hypokalemia recs Acidosis sec to lactic acidosis---correct underlying cause getting prbc on bumex will f/u Plan discussed with: Other Dietary Evaluation Review Recommendations by RD: Protein Supplementation Comments: 1) If NPO > 7 days, consider EN/TPN to meet at least 75% of estimated daily energy needs. 2) Initiate Lucas @ 1 pk bid when medically feasible. 3) Advance diet to 60g CCHO/cardiac when medically feasible, pending PRECONSTRUCTION MANAGER approval. 4) Continue to monitor nutrition-related labs. Expected Outcomes/Goals: 1) diet to advance 2) appetite and labs to improve 3) f/u in 3-5 days CC Plasma Assessment Blood Product Administration S: 12:55 MONTRELL FUCHS MD Apr 16, 2024 16:56
[2024-04-16 18:43] LABS: Hematocrit 28.4 % (36.0-46.0); Hemoglobin 9.7 g/dL (12.2-16.2)
--- NOTE | 2024-04-16 21:55 | DVHPNRES ---
Progress Note Date Seen: Apr 17, 2024 Resident Creating Document: HUONG ARAUJO RESIDENT Medical Necessity Reason Pt with a Central, PICC or Fol: Yes The following are medically ne: Central Line, PICC Line, Celaya Catheter Reason for celaya catheter: Strict I&O Subjective Review of Systems pt seen and examined at bedside, sedated and intubated ROS could not be done as patient is sedated and intubated Objective vital signs Vital Sign Date Time Temp Pulse Resp B/P (MAP) Pulse Ox O2 Delivery O2 Flow Rate FiO2 04/16/24 21:26 129/63 04/16/24 20:00 97.7 73 19 100 207.9 04/16/24 19:50 30 04/16/24 08:00 Mechanical Ventilator+ Total Intake and Output 04/15/24 04/15/24 04/16/24 15:00 23:00 07:00 Intake Total 246.50 ml 642.00 ml 492.00 ml Output Total 975 ml 1000 ml Balance 246.50 ml -333.00 ml -508.00 ml medications Current Medications Medications Dose Ordered Sig/Gus Route Start Time Stop Time Status Last Admin Dose Admin Al Hydrox/Mg Hydrox/Simethicone 5 ml QID MT 04/07/24 22:00 04/16/24 12:13 5 ML Diagnostic Test (Pha) 1 strip IQ4HR 04/08/24 04:00 04/16/24 20:18 1 STRIP Insulin Human Regular IQ4HR SC 04/08/24 04:00 04/16/24 00:12 4 UNITS Dextrose 50 ml UD PRN IV 04/08/24 00:15 04/13/24 10:15 50 ML Pantoprazole Sodium 40 mg DAILY IV 04/09/24 08:00 04/16/24 09:31 40 MG Enoxaparin Sodium 40 mg DAILY SC 04/12/24 10:00 04/15/24 09:50 40 MG Norepinephrine Bitartrate 250 ml @ 3.75 mls/hr Q24H IV 04/13/24 12:45 04/16/24 17:36 3.75 MLS/HR Meropenem 50 ml @ 17 mls/hr Q12HR IV 04/13/24 22:00 04/16/24 21:23 17 MLS/HR Vancomycin HCl 0 ml @ 0 mls/hr UD IV 04/13/24 15:15 Midazolam HCl 50 ml @ 1 mls/hr Q24H IV 04/13/24 15:45 04/13/24 16:44 1 MLS/HR Fentanyl Citrate 250 ml @ 2.5 mls/hr Q24H IV 04/13/24 15:45 04/16/24 06:16 5 MLS/HR Vasopressin 20 units/Sodium Chloride 100 ml @ 9 mls/hr Q11H7M IV 04/13/24 15:45 04/16/24 21:26 9 MLS/HR Albumin Human 100 ml @ 100 mls/hr Q12HR IV 04/15/24 10:00 04/17/24 09:59 04/16/24 21:22 100 MLS/HR Bumetanide 1 mg BIDD IV 04/15/24 10:30 04/16/24 18:33 1 MG Enteral Nutritional Formula 1,000 ml 30ML/HR GT 04/15/24 08:45 Purified Water 100 ml Q6HR GT 04/15/24 08:45 04/16/24 18:19 100 ML Artificial Tears 1 drop Q6HP PRN EACHEYE 04/15/24 09:00 Vancomycin HCl 100 ml @ 200 mls/hr Q12H IV 04/15/24 15:00 04/16/24 03:00 200 MLS/HR Hydrocortisone Sodium Succinate 50 mg Q12HR IV 04/16/24 10:00 04/16/24 09:31 50 MG Examination Physical Exam Gen : sedated and intubated, anasarca improving Resp : bilateral a/e +, on mech vent cardiac : normal s1, s2 GI : soft Neuro: sedated Extremity : pitting pedal edema laboratory and microbiology Laboratory Tests 04/16/24 18:10 04/16/24 09:46 Test 04/16/24 09:46 Range/Units Serum Glucose 129 H 74-106 mg/dL Microbiology Date/Time Source Procedure Growth Status 04/13/24 16:50 Sputum Gram Stain - Final Resulted 04/13/24 16:50 Respiratory Culture - Preliminary Staphylococcus aureus Presumptive Nini albicans Resulted 04/08/24 21:15 Nose MRSA Screen - Final Complete 04/08/24 00:40 Blood Blood Culture - Final NO GROWTH AFTER 5 DAYS OF INCUBATION. Complete 04/07/24 21:30 Urine - Celaya Port Urine Culture - Final Complete Labs and/or images reviewed: Labs reviewed by me, Image(s) reviewed by me Problem List/Assessment/Plan Problem List/Assessment/Plan Assessment/plan #acute metabolic encephalopathy 2/2 sepsis on dementia, ?thiamine def -head CT -thiamine IV #Sepsis due to aspiration pneumonia/ infected wounds -IV antibiotics #septic vs cardiogenic shock -currently on vasopressin and norepi -IV steroids #acute hypoxic respiratory failure 2/2 aspiration PNA -on mech vent #extravascular fluid overload likely oncotic albumin f/b Lasix #acute on chronic heart failure with reduced ejection fraction 40% --currently on vasopressin and norepi #CAD s/p CABG #dementia #MELVINA likely ATN resolved #infected sacral ulcer -IV antibiotics #Severe anemia -requiring blood transfusion -ordered hemolysis workup -1 unit PRBC nutrition started on nepro with carb steady FULL CODE Case discussion with dr vanegas Plan discussed with: Other My Orders My Orders Orders - HUONG ARAUJO RESIDENT Procedure Category Date Status Time Hydrocortisone PHA 04/16/24 In Process Succinate Inj 10:00 Chest Portable XY 04/16/24 Resulted 04:00 Abg W/ Co-Ox RT 04/16/24 Logged 04:00 Administer Blood GWENDOLYN 04/16/24 In Process Products 10:11 Basic Metabolic Panel LAB 04/16/24 Logged 22:00 Dietary Evaluation Review Recommendations by RD: Protein Supplementation Comments: 1) If NPO > 7 days, consider EN/TPN to meet at least 75% of estimated daily energy needs. 2) Initiate Lucas @ 1 pk bid when medically feasible. 3) Advance diet to 60g CCHO/cardiac when medically feasible, pending HANDMADE TILE ARTIST approval. 4) Continue to monitor nutrition-related labs. Expected Outcomes/Goals: 1) diet to advance 2) appetite and labs to improve 3) f/u in 3-5 days CC Plasma Assessment Blood Product Administration S: 12:55 Date of Service: Apr 17, 2024 Billing Provider: TAMMI VANEGAS MD Common Visit Codes: [id number] CARE 30-74 MIN HUONG ARAUJO RESIDENT Apr 16, 2024 21:55 TAMMI VANEGAS MD Apr 23, 2024 17:21
--- NOTE | 2024-04-16 22:04 | DVHPN2 ---
Progress Note - Dictate Date Seen: Apr 16, 2024 Medical Necessity Reason Pt with a Central, PICC or Fol: Yes The following are medically ne: Central Line, PICC Line, Celaya Catheter Reason for celaya catheter: Strict I&O Subjective Patient seen and examined at bedside. Sedated, intubated on mechanical ventilator. Overnight events reviewed. vital signs Vital Sign Date Time Temp Pulse Resp B/P (MAP) Pulse Ox O2 Delivery O2 Flow Rate FiO2 04/16/24 22:00 69 04/16/24 21:26 129/63 04/16/24 20:00 97.7 19 100 207.9 04/16/24 19:50 30 04/16/24 08:00 Mechanical Ventilator+ Total Intake and Output 04/15/24 04/15/24 04/16/24 15:00 23:00 07:00 Intake Total 246.50 ml 642.00 ml 492.00 ml Output Total 975 ml 1000 ml Balance 246.50 ml -333.00 ml -508.00 ml medications Current Medications Medications Dose Ordered Sig/Gus Route Start Time Stop Time Status Last Admin Dose Admin Al Hydrox/Mg Hydrox/Simethicone 5 ml QID MT 04/07/24 22:00 04/16/24 12:13 5 ML Diagnostic Test (Pha) 1 strip IQ4HR 04/08/24 04:00 04/16/24 20:18 1 STRIP Insulin Human Regular IQ4HR SC 04/08/24 04:00 04/16/24 00:12 4 UNITS Dextrose 50 ml UD PRN IV 04/08/24 00:15 04/13/24 10:15 50 ML Pantoprazole Sodium 40 mg DAILY IV 04/09/24 08:00 04/16/24 09:31 40 MG Enoxaparin Sodium 40 mg DAILY SC 04/12/24 10:00 04/15/24 09:50 40 MG Norepinephrine Bitartrate 250 ml @ 3.75 mls/hr Q24H IV 04/13/24 12:45 04/16/24 17:36 3.75 MLS/HR Meropenem 50 ml @ 17 mls/hr Q12HR IV 04/13/24 22:00 04/16/24 21:23 17 MLS/HR Vancomycin HCl 0 ml @ 0 mls/hr UD IV 04/13/24 15:15 Midazolam HCl 50 ml @ 1 mls/hr Q24H IV 04/13/24 15:45 04/13/24 16:44 1 MLS/HR Fentanyl Citrate 250 ml @ 2.5 mls/hr Q24H IV 04/13/24 15:45 04/16/24 06:16 5 MLS/HR Vasopressin 20 units/Sodium Chloride 100 ml @ 9 mls/hr Q11H7M IV 04/13/24 15:45 04/16/24 21:26 9 MLS/HR Albumin Human 100 ml @ 100 mls/hr Q12HR IV 04/15/24 10:00 04/17/24 09:59 04/16/24 21:22 100 MLS/HR Bumetanide 1 mg BIDD IV 04/15/24 10:30 04/16/24 18:33 1 MG Enteral Nutritional Formula 1,000 ml 30ML/HR GT 04/15/24 08:45 Purified Water 100 ml Q6HR GT 04/15/24 08:45 04/16/24 18:19 100 ML Artificial Tears 1 drop Q6HP PRN EACHEYE 04/15/24 09:00 Vancomycin HCl 100 ml @ 200 mls/hr Q12H IV 04/15/24 15:00 04/16/24 03:00 200 MLS/HR Hydrocortisone Sodium Succinate 50 mg Q12HR IV 04/16/24 10:00 04/16/24 09:31 50 MG objective Gen.: Patient lying in bed in medical ICU. Sedated, intubated on mechanical ventilator. Head: Normocephalic, atraumatic. Eyes: PERRLA. Ears: Normal external anatomy. Throat: Endotracheal tube and orogastric tube in place. Neck: Supple, trachea midline. Chest: Transmitted breath sounds bilaterally. Decreased air entry bilaterally. No wheezing. Bibasilar crackles. Cardiovascular: Positive S1, positive S2. Regular rate and rhythm. Abdomen: Positive bowel sounds in all 4 quadrants. Soft, nontender, nondistended. : Celaya in place. Normal external genitalia. Rectal: Deferred. Skin: Warm, dry. Intact. Extremities: 2+ radial pulses bilaterally. No lower extremity edema. Neuro: Sedated. laboratory and microbiology Laboratory Tests 04/16/24 18:10 04/16/24 09:46 Test 04/16/24 09:46 Range/Units Serum Glucose 129 H 74-106 mg/dL Assessment/Plan Impression: Acute hypoxic respiratory failure On mechanical ventilator Shock Acute metabolic encephalopathy Aspiration pneumonia Events: Remains on vent support On AC mode; RR 20, VT 400, PEEP 8, FiO2 30% Improved FiO2 requirements Sedated on Fentanyl drip. On pressors for hemodynamic support Levophed 2 mcg/min, vasopressin 0.03 units/min Titrate to keep mean arterial pressure greater than 65 mmHg. Improving pressor requirements S/p 1 unit PRBC transfusion Monitor hemoglobin Tube feeds for nutritional support Patient is not tolerating turns. Poor prognosis. Labs and imaging reviewed. Rest of plan as noted below. Plan: s/p intubation on mechanical ventilator. CXR image and report reviewed. Devices in place. Airspace disease worsening in the left lower lobe. No pneumothorax. No pleural effusion. On AC mode; RR 20, VT 400, PEEP 8, FiO2 30% Titrate FIO2 to keep O2 saturation above 90%. VAP bundle. Daily ABG and CXR while intubated Sedate for ventilator synchrony Patient is too unstable for CT head. Continue antibiotics. F/u cultures. On pressors for hemodynamic support Titrate to keep mean arterial pressure greater than 65 mmHg. Monitor renal function Monitor electrolytes. Supplement as necessary. Monitor ins and outs. Maintain euvolemia. GI prophylaxis. DVT prophylaxis. Prognosis: Poor given patient's multiple co-morbidities. Condition: Critical Rest of plan per hospitalist and other consultants. A total of 35 minutes of critical care time was spent reviewing the patient record, examining the patient, making a diagnostic and therapeutic plan, discussing this plan with the medical personnel, following up on diagnostic studies and following the patient for clinical stability excluding any and all procedures. At least 50% of this time was spent in direct, [id number] contact. Thank you Dr. Curiel for allowing me to participate in this patient's care. Further recommendations will depend on the patient's clinical course. Please do not hesitate to contact me if you have any questions or concerns. This medical document was created using an electronic medical record system with [employer] system. Although these documentations are being carefully reviewed, there may still be some phonetic and typographical changes. The errors are purely typographical, due to imperfection on the software program, and do not reflect any compromise in the patient's medical care. Dietary Evaluation Review Recommendations by RD: Protein Supplementation Comments: 1) If NPO > 7 days, consider EN/TPN to meet at least 75% of estimated daily energy needs. 2) Initiate Lucas @ 1 pk bid when medically feasible. 3) Advance diet to 60g CCHO/cardiac when medically feasible, pending [employer] ADMINISTRATOR approval. 4) Continue to monitor nutrition-related labs. Expected Outcomes/Goals: 1) diet to advance 2) appetite and labs to improve 3) f/u in 3-5 days Plan discussed with: Other (ENRIQUE Garcia) Critical Care Time(min): 35 CC Plasma Assessment Blood Product Administration S: 12:55 GUILLERMINA WILLSON MD Apr 16, 2024 22:04
[2024-04-16 23:22] LABS: Anion Gap 12 (5-15); Carbon Dioxide 23 mmol/L (20-31)
[2024-04-16 23:23] LABS: Calcium 9.3 mg/dL (8.7-10.4)
[2024-04-16 23:28] LABS: BUN/Creatinine Ratio 20.5 (10.0-20.0); Magnesium 1.8 mg/dL (1.6-2.6)
[2024-04-16 23:30] LABS: Phosphorus 3.2 mg/dL (2.4-5.1)
[2024-04-16 23:35] LABS: Blood Urea Nitrogen 24 mg/dL (9-23); Chloride 116 mmol/L (98-107); Glucose 258 mg/dL (74-106); Sodium 151 mmol/L (136-145)
[2024-04-17] VITALS (111 sets, daily range): BP systolic 80–137; BP diastolic 40–76; PULSE 69–119; RESP 14–25; TEMP 97.7–98.8; O2SAT 92–100
--- NOTE | 2024-04-17 00:22 | DVH ---
Bilateral lower extremity venous duplex Clinical History: rule out DVT Comparison: US BI LAT UPPER DVT on DOS: 04/09/24 Technique: Duplex Doppler evaluation of the deep venous systems of both lower extremities from the common femora l veins to the popliteal veins including color Doppler and spectral/pulsed waveform analysis was perf ormed. Findings: RIGHT SIDE: Nonocclusive thrombus of the common femoral vein. There is compressibility/patency of the great saphenous vein at the proximal thigh. The femoral vein demonstrates appropriate compressibility and waveform variability. The deep femoral vein demonstrates appropriate compressibility and waveform variability. The popliteal vein demonstrates appropriate compressibility and waveform variability. There is normal compressibility at the tibioperoneal trunk. Complex fluid collection is seen in the right mid inner thigh which measures 6 x 1.7 x 2.1 cm LEFT SIDE: Nonocclusive thrombus of the common femoral vein There is compressibility/patency of the great saphenous vein at the proximal thigh. The femoral vein demonstrates appropriate compressibility and waveform variability. The deep femoral vein demonstrates appropriate compressibility and waveform variability. The popliteal vein demonstrates appropriate compressibility and waveform variability. There is normal compressibility at the tibioperoneal trunk. Impression: 1. Left lower extremity veins: Nonocclusive thrombus in the common femoral vein. 2. Right lower extremity veins: Nonocclusive thrombus in the common femoral vein. 3. Complex fluid collection is seen in the right mid inner thigh which measures 6 x 1.7 x 2.1 cm
--- NOTE | 2024-04-17 05:07 | DVH ---
CHEST RADIOGRAPH Indication: mech vent Technique: Single frontal view of the chest was obtained COMPARISON: XY CHEST PORTABLE on DOS: 04/16/24, XY CHEST PORTABLE on DOS: 04/15/24, XY CHEST XRAY 1 VIEW on DOS: 04/14/24, XY CHEST XRAY 1 VIEW on DOS: 04/13/24, XY CHEST XRAY 1 VIEW on DOS: 04/13/24, XY CHEST PO RTABLE on DOS: 04/16/24 FINDINGS: Lines and Tubes: Median sternotomy. Endotracheal tube and enteric catheter and right PICC in satisfa ctory position. Lungs: Focal airspace disease. Pleura: No effusion. No pneumothorax. Cardiomediastinal contours: Unremarkable Bones: Unremarkable IMPRESSION: Lines and tubes in satisfactory position. No significant interval change.
[2024-04-17 05:14] LABS: White Blood Cell 6.2 10^3/uL (4.4-10.8)
[2024-04-17 05:20] LABS: Hematocrit 22.8 % (36.0-46.0); Hemoglobin 7.9 g/dL (12.2-16.2); Mean Corpuscular Hemoglobin 32.2 pg (28.0-32.0); Mean Corpuscular Hgb Conc. 34.8 g/dL (32.0-36.0); Mean Corpuscular Volume 92.7 fL (80.0-100.0); Platelet Count (auto) 52 10^3/uL (140-450); Red Blood Cells 2.47 10^6/uL (4.0-5.20); Red Cell Distribution Width 18.1 % (11.8-14.3)
[2024-04-17 05:37] LABS: Alanine Aminotransferase 21 U/L (7-40); Anion Gap 13 (5-15); Calcium 9.2 mg/dL (8.7-10.4); Carbon Dioxide 22 mmol/L (20-31); Magnesium 1.7 mg/dL (1.6-2.6)
[2024-04-17 05:42] LABS: BUN/Creatinine Ratio 20.5 (10.0-20.0)
[2024-04-17 05:44] LABS: Basophils % (manual) 0 (0.0-2.0); Blast Cells 0; Eosinophils % (manual) 0 (0-7); Metamyelocytes % 0; Myelocytes % 0; Promyelocytes % 0; Reactive Lymphocytes 0
[2024-04-17 05:46] LABS: Alkaline Phosphatase 168 U/L (46-116); Aspartate Aminotransferase 45 U/L (13-40); Bilirubin, Total 8.7 mg/dL (0.2-1.0); Blood Urea Nitrogen 25 mg/dL (9-23); Chloride 116 mmol/L (98-107); Glucose 283 mg/dL (74-106); Potassium 2.5 mmol/L (3.5-5.1); Sodium 151 mmol/L (136-145); Total Protein 4.6 g/dL (5.7-8.2)
[2024-04-17] MEDS: ALBUMIN 25% 100 ML IV SCH (06:20)
[2024-04-17] MEDS: BUMETANIDE 2.5mg/10ml (0.25 mg/ml) INJ IV SCH (06:21)
[2024-04-17] MEDS: POTASSIUM CHL 20MEQ/100ML 100 ML IV ONE (06:40)
[2024-04-17] MEDS: POTASSIUM CHL 20MEQ/100ML 100 ML IV SCH (06:41)
[2024-04-17 07:09] LABS: Base Excess -4.3 mmol/L (-2.0-3.0)
[2024-04-17 08:51] LABS: Monocytes % (manual) 2 (0-12)
[2024-04-17 08:53] LABS: Anisocytosis Slight; Band Neutrophils % (manual) 7; Lymphocytes % (manual) 5 (10.0-50.0)
[2024-04-17 08:54] LABS: Platelet Estimate Decreased; Stomatocytes Few
[2024-04-17] MEDS ORDERED: THIAMINE INJ 250 MG in D5W 5% 50 ML IV SCH (10:00)
[2024-04-17 11:03] LABS: Magnesium 1.8 mg/dL (1.6-2.6)
[2024-04-17 11:05] LABS: Phosphorus 2.8 mg/dL (2.4-5.1)
[2024-04-17] MEDS: LACTATED RINGER'S 500 ML IV ONE (12:45)
--- NOTE | 2024-04-17 12:51 | DVHPNRES ---
Progress Note Date Seen: Apr 17, 2024 Resident Creating Document: HUONG ARAUJO RESIDENT Medical Necessity Reason Pt with a Central, PICC or Fol: Yes The following are medically ne: Central Line, PICC Line, Celaya Catheter Reason for celaya catheter: Strict I&O Subjective Review of Systems pt seen and examined at bedside, currently sedated and intubated on [facility] vent ROS could not be done as patient is sedated and intubated Objective vital signs Vital Sign Date Time Temp Pulse Resp B/P (MAP) Pulse Ox O2 Delivery O2 Flow Rate FiO2 04/17/24 12:11 92 22 111/60 (77) 98 30 04/17/24 10:30 98.1 208.6 04/16/24 20:00 Mechanical Ventilator+ Total Intake and Output 04/16/24 04/16/24 04/17/24 15:00 23:00 07:00 Intake Total 200.75 ml 898.25 ml 653.75 ml Output Total 800 ml 750 ml Balance 200.75 ml 98.25 ml -96.25 ml medications Current Medications Medications Dose Ordered Sig/Gus Route Start Time Stop Time Status Last Admin Dose Admin Al Hydrox/Mg Hydrox/Simethicone 5 ml QID MT 04/07/24 22:00 04/16/24 12:13 5 ML Diagnostic Test (Pha) 1 strip IQ4HR 04/08/24 04:00 04/17/24 07:45 1 STRIP Insulin Human Regular IQ4HR SC 04/08/24 04:00 04/17/24 03:35 8 UNITS Dextrose 50 ml UD PRN IV 04/08/24 00:15 04/13/24 10:15 50 ML Pantoprazole Sodium 40 mg DAILY IV 04/09/24 08:00 04/17/24 10:00 40 MG Norepinephrine Bitartrate 250 ml @ 3.75 mls/hr Q24H IV 04/13/24 12:45 04/16/24 17:36 3.75 MLS/HR Meropenem 50 ml @ 17 mls/hr Q12HR IV 04/13/24 22:00 04/17/24 10:14 17 MLS/HR Vancomycin HCl 0 ml @ 0 mls/hr UD IV 04/13/24 15:15 Midazolam HCl 50 ml @ 1 mls/hr Q24H IV 04/13/24 15:45 04/13/24 16:44 1 MLS/HR Fentanyl Citrate 250 ml @ 2.5 mls/hr Q24H IV 04/13/24 15:45 04/16/24 06:16 5 MLS/HR Vasopressin 20 units/Sodium Chloride 100 ml @ 9 mls/hr Q11H7M IV 04/13/24 15:45 04/16/24 21:26 9 MLS/HR Enteral Nutritional Formula 1,000 ml 30ML/HR GT 04/15/24 08:45 Artificial Tears 1 drop Q6HP PRN EACHEYE 04/15/24 09:00 Hydrocortisone Sodium Succinate 50 mg Q12HR IV 04/16/24 10:00 04/17/24 09:59 50 MG Purified Water 150 ml Q6HR GT 04/17/24 12:00 Examination Physical Exam Gen : sedated and intubated, anasarca improving Resp : bilateral a/e +, on mech vent cardiac : normal s1, s2 GI : soft Neuro: sedated Extremity : pitting pedal edema laboratory and microbiology Laboratory Tests 04/17/24 04:50 Test 04/17/24 04:50 Range/Units Serum Glucose 283 H 74-106 mg/dL Microbiology Date/Time Source Procedure Growth Status 04/13/24 16:50 Sputum Gram Stain - Final Resulted 04/13/24 16:50 Respiratory Culture - Preliminary Staphylococcus aureus Presumptive Nini albicans Resulted 04/08/24 21:15 Nose MRSA Screen - Final Complete 04/08/24 00:40 Blood Blood Culture - Final NO GROWTH AFTER 5 DAYS OF INCUBATION. Complete 04/07/24 21:30 Urine - Celaya Port Urine Culture - Final Complete Labs and/or images reviewed: Labs reviewed by me, Image(s) reviewed by me Problem List/Assessment/Plan Problem List/Assessment/Plan Assessment/plan Neurology #Sedation Fentanyl #acute metabolic encephalopathy 2/2 sepsis on dementia, ?thiamine def -head CT -thiamine IV # history of dementia ? Thiamine deficiency Cardiology #septic vs cardiogenic shock -currently on norepinephrine -IV steroids -repeat panculture -IV Lactated Ringer bolus 500cc #extravascular fluid overload likely oncotic albumin f/b Lasix, discontinued #acute on chronic heart failure with reduced ejection fraction 40% -currently on vasopressin and norepinephrine #CAD s/p CABG -hold antiplatelet/anticoagulation considering low platelet count # history of DVT Repeat lower extremity Doppler venous showed evidence of nonocclusive thrombus in bilateral femoral veins # superficial venous phlebitis right arm Warm compresses Infectious disease #Sepsis due to aspiration pneumonia/ infected wounds -IV antibiotics -repeat panculture #infected sacral ulcer -IV antibiotics Respiratory #acute hypoxic respiratory failure 2/2 aspiration PNA -on mech vent #? Aspiration pneumonia IV antibiotics Nephrology #MELVINA likely ATN -IV fluids, lactated ringer 500 cc bolus # hypokalemia Replaced #Hypomagnesemia -replace # hyponatremia -free water through NG tube Hematology/oncology #Severe anemia -requiring blood transfusion -ordered hemolysis workup -1 unit PRBC -hematology oncology workup Haptoglobin, direct, indirect Shira test, LDH #?DIC -1 unit of FFP #?HIT -4t Score of 6 -stopped Lovenox Nutrition started on Nepro with Carb steady FULL CODE DVT prophylaxis, on hold due to low platelet count SCDs Drips Norepinephrine Lines Right subclavian Case discussion with dr Aleman Plan discussed with: Other My Orders My Orders Orders - HUONG ARAUJO RESIDENT Procedure Category Date Status Time Chest Portable XY 04/17/24 Resulted 04:00 Abg W/ Co-Ox RT 04/17/24 Logged 04:00 Bilat Lower Dvt US 04/16/24 Resulted 21:56 Haptoglobin LAB 04/17/24 In Process 10:38 Free Water PHA 04/17/24 In Process 12:00 Blood Culture ROSS 04/17/24 Uncollected 15:00 Respiratory Culture ROSS 04/17/24 Uncollected W/ Gs 15:00 Urine Bacterial ROSS 04/17/24 Uncollected Culture 15:00 Comprehensive LAB 04/17/24 Logged Metabolic Panel 15:00 Vitamin B1 (Thiamine) LAB 04/17/24 Logged 15:00 Stool Occult Blood LAB 04/17/24 Logged 15:00 Urinalysis LAB 04/17/24 Logged 15:00 PTPTT LAB 04/17/24 Logged 15:00 Fibrinogen LAB 04/17/24 Logged 15:00 Nolasco Stain Slide LAB 04/17/24 Logged 15:00 Lactic Acid W/ Reflex LAB 04/17/24 Logged Order 15:00 * Hematology/Oncology CONS 04/17/24 Transmitted Consult 11:40 Gamma Glutamyl LAB 04/17/24 Logged Transpeptidase 15:00 LIVER US 04/17/24 Taken 11:47 Dietary Evaluation Review Recommendations by RD: Protein Supplementation Comments: 1) If NPO > 7 days, consider EN/TPN to meet at least 75% of estimated daily energy needs. 2) Initiate Lucas @ 1 pk bid when medically feasible. 3) Advance diet to 60g CCHO/cardiac when medically feasible, pending BUSINESS [employer] FINANCIAL COUNSEL approval. 4) Continue to monitor nutrition-related labs. Expected Outcomes/Goals: 1) diet to advance 2) appetite and labs to improve 3) f/u in 3-5 days CC Plasma Assessment Blood Product Administration S: 12:55 Date of Service: Apr 17, 2024 Billing Provider: TAMMI ALEMAN MD Common Visit Codes: [id number] CARE 30-74 MIN HUONG ARAUJO RESIDENT Apr 17, 2024 12:51 TAMMI ALEMAN MD Apr 23, 2024 17:21
[2024-04-17] MEDS: MAGNESIUM OXIDE 400 MG TAB PO ONE (13:12)
[2024-04-17] MEDS: FREE WATER GT SCH (13:16)
--- NOTE | 2024-04-17 13:21 | DVH ---
INDICATION: elevated bilirubin TECHNIQUE: Multiple real-time sonographic images were obtained of the right upper quadrant. COMPARISON: None FINDINGS: The liver demonstrates heterogeneous echotexture without focal mass lesions. The liver ck ures 12cm. There is no intrahepatic or extrahepatic ductal dilatation. The common duct measures 0 .5 mm. The gallbladder is without evidence of stone or sludge. The gallbladder wall measures 0.6 mm and is thickened. The right kidney measures 10 cm. The right kidney is normal in contour, size, and shape. The echog enicity is normal. There is no hydronephrosis. The pancreas is not well visualized due to overlying bowel gas. IMPRESSION: Thickened and irregular gallbladder wall. Please correlate with Alk Phos, bilirubin, blood culture, f ever, WBC for primary cholecystitis, versus secondary wall thickening with lipase for pancreatitis, A ST/ALT for hepatitis/cirrhosis, BUN/Cr for renal failure, and BNP/albumin for CHF/low protein state.
--- NOTE | 2024-04-17 14:28 | DVHPN2 ---
Progress Note Date Seen: Apr 17, 2024 Medical Necessity Reason Pt with a Central, PICC or Fol: Yes The following are medically ne: Central Line, PICC Line, Celaya Catheter Reason for celaya catheter: Strict I&O Subjective Patient reports: Other Review of Systems: Deferred Objective vital signs Vital Sign Date Time Temp Pulse Resp B/P (MAP) Pulse Ox O2 Delivery O2 Flow Rate FiO2 04/17/24 13:46 101 22 118/60 (79) 98 35 04/17/24 10:30 98.1 208.6 04/16/24 20:00 Mechanical Ventilator+ Total Intake and Output 04/16/24 04/16/24 04/17/24 15:00 23:00 07:00 Intake Total 200.75 ml 898.25 ml 653.75 ml Output Total 800 ml 750 ml Balance 200.75 ml 98.25 ml -96.25 ml medications Current Medications Medications Dose Ordered Sig/Gus Route Start Time Stop Time Status Last Admin Dose Admin Al Hydrox/Mg Hydrox/Simethicone 5 ml QID MT 04/07/24 22:00 04/17/24 13:43 5 ML Diagnostic Test (Pha) 1 strip IQ4HR 04/08/24 04:00 04/17/24 12:00 1 STRIP Insulin Human Regular IQ4HR SC 04/08/24 04:00 04/17/24 12:00 4 UNITS Dextrose 50 ml UD PRN IV 04/08/24 00:15 04/13/24 10:15 50 ML Pantoprazole Sodium 40 mg DAILY IV 04/09/24 08:00 04/17/24 10:00 40 MG Norepinephrine Bitartrate 250 ml @ 3.75 mls/hr Q24H IV 04/13/24 12:45 04/16/24 17:36 3.75 MLS/HR Meropenem 50 ml @ 17 mls/hr Q12HR IV 04/13/24 22:00 04/17/24 10:14 17 MLS/HR Vancomycin HCl 0 ml @ 0 mls/hr UD IV 04/13/24 15:15 Midazolam HCl 50 ml @ 1 mls/hr Q24H IV 04/13/24 15:45 04/13/24 16:44 1 MLS/HR Fentanyl Citrate 250 ml @ 2.5 mls/hr Q24H IV 04/13/24 15:45 04/16/24 06:16 5 MLS/HR Vasopressin 20 units/Sodium Chloride 100 ml @ 9 mls/hr Q11H7M IV 04/13/24 15:45 04/16/24 21:26 9 MLS/HR Enteral Nutritional Formula 1,000 ml 30ML/HR GT 04/15/24 08:45 Artificial Tears 1 drop Q6HP PRN EACHEYE 04/15/24 09:00 Hydrocortisone Sodium Succinate 50 mg Q12HR IV 04/16/24 10:00 04/17/24 09:59 50 MG Purified Water 150 ml Q6HR GT 04/17/24 12:00 04/17/24 13:16 150 ML Examination: GENERAL:Abnormal, LUNGS:Abnormal, MSK:Abnormal, SKIN:Abnormal, NEURO:Abnormal laboratory and microbiology Laboratory Tests 04/17/24 04:50 Test 04/17/24 04:50 Range/Units Serum Glucose 283 H 74-106 mg/dL Microbiology Date/Time Source Procedure Growth Status 04/13/24 16:50 Sputum Gram Stain - Final Resulted 04/13/24 16:50 Respiratory Culture - Preliminary Staphylococcus aureus Presumptive Nini albicans Resulted 04/08/24 21:15 Nose MRSA Screen - Final Complete 04/08/24 00:40 Blood Blood Culture - Final NO GROWTH AFTER 5 DAYS OF INCUBATION. Complete 04/07/24 21:30 Urine - Celaya Port Urine Culture - Final Complete Problem List/Assessment/Plan Problem List/Assessment/Plan Acute kidney injury hemodynamically mediated in the setting of shock Septic shock Metabolic acidosis /lactic acidosis Urinary tract infection Sacral decubitus ulcers Hypoalbuminemia /transaminitis hypernatremia hypokalemia recs volume overloaded overall on bumex iv will f/u Plan discussed with: Other Dietary Evaluation Review Recommendations by RD: Protein Supplementation Comments: 1) If NPO > 7 days, consider EN/TPN to meet at least 75% of estimated daily energy needs. 2) Initiate Lucas @ 1 pk bid when medically feasible. 3) Advance diet to 60g CCHO/cardiac when medically feasible, pending [employer]EL[employer] MAINTENANCE approval. 4) Continue to monitor nutrition-related labs. Expected Outcomes/Goals: 1) diet to advance 2) appetite and labs to improve 3) f/u in 3-5 days CC Plasma Assessment Blood Product Administration S: 12:55 MONTRELL FUCHS MD Apr 17, 2024 14:28
[2024-04-17 16:20] LABS: INR 2.7 (0.9-1.15); Lactic Acid w/Reflex 5.7 mmol/L (0.4-2.0); Partial Thromboplastin Time 64.2 SEC (24.5-34.5); Prothrombin Time 26.6 sec (9.3-11.8)
[2024-04-17 16:33] LABS: Alanine Aminotransferase 22 U/L (7-40); Albumin 3.2 g/dL (3.2-4.8); Anion Gap 12 (5-15); BUN/Creatinine Ratio 21.5 (10.0-20.0); Calcium 9.3 mg/dL (8.7-10.4); Carbon Dioxide 21 mmol/L (20-31); Potassium 3.8 mmol/L (3.5-5.1)
[2024-04-17 16:36] LABS: Alkaline Phosphatase 177 U/L (46-116); Aspartate Aminotransferase 56 U/L (13-40); Bilirubin, Total 9.6 mg/dL (0.2-1.0); Blood Urea Nitrogen 26 mg/dL (9-23); Chloride 118 mmol/L (98-107); Glucose 216 mg/dL (74-106); Sodium 151 mmol/L (136-145); Total Protein 4.6 g/dL (5.7-8.2)
[2024-04-17] MEDS: BUMETANIDE 1mg/4ml VIAL (0.25mg/ml) IV SCH (18:13)
[2024-04-17] MEDS: MICAFUNGIN SODIUM 100 MG in SODIUM CHL 0.9% 100 ML IV ONE (18:39)
--- NOTE | 2024-04-17 21:30 | DVH ---
CHEST RADIOGRAPH Indication: VERIFY NG TUBE PLACEMENT Technique: Single frontal view of the chest was obtained Comparison: XY CHEST PORTABLE on DOS: 04/17/24, XY CHEST PORTABLE on DOS: 04/16/24, XY CHEST PORTABLE on DOS: 04/15/24 FINDINGS: Lines and Tubes: ENDOTRACHEAL TUBE TIP 3.3 CM ABOVE THE NORA. CENTRAL CATHETER FROM THE RIGHT IN TH E CAVOATRIAL JUNCTION. STERNAL WIRE SUTURES IN PLACE. ENTERIC TUBE IN THE STOMACH. Lungs: BIBASILAR AIRSPACE DISEASE AND AREAS OF ATELECTASIS Pleura: No effusion. No pneumothorax. Cardiomediastinal contours: Unremarkable Bones: No acute osseous abnormality. IMPRESSION: 1. Endotracheal tube in place 3.3 cm above the nora 2. Enteric tube in the stomach. 3. Internal jugular catheter from the right at the cavoatrial junction. 4. Bibasilar areas of airspace disease and atelectasis.
--- NOTE | 2024-04-17 21:52 | DVHPN2 ---
Progress Note - Dictate Date Seen: Apr 17, 2024 Medical Necessity Reason Pt with a Central, PICC or Fol: Yes The following are medically ne: Central Line, PICC Line, Celaya Catheter Reason for celaya catheter: Strict I&O Subjective Patient was seen and valuated in follow up in the ICU. Patient is intubated and sedated on ventilator. 35% FiO2. HGB 7.9, HCT 22.8, NA 151, K 2.5, CL 116, BUN 25, PLANT TECHNICAL SPECIALIST 1.22, GLUC 220, AST 45. Liver US shows thickened and irregular gallbladder wall. vital signs Vital Sign Date Time Temp Pulse Resp B/P (MAP) Pulse Ox O2 Delivery O2 Flow Rate FiO2 04/17/24 13:46 101 22 118/60 (79) 98 35 04/17/24 10:30 98.1 208.6 04/16/24 20:00 Mechanical Ventilator+ Total Intake and Output 04/16/24 04/16/24 04/17/24 15:00 23:00 07:00 Intake Total 200.75 ml 898.25 ml 653.75 ml Output Total 800 ml 750 ml Balance 200.75 ml 98.25 ml -96.25 ml medications Current Medications Medications Dose Ordered Sig/Gus Route Start Time Stop Time Status Last Admin Dose Admin Al Hydrox/Mg Hydrox/Simethicone 5 ml QID MT 04/07/24 22:00 04/17/24 13:43 5 ML Diagnostic Test (Pha) 1 strip IQ4HR 04/08/24 04:00 04/17/24 12:00 1 STRIP Insulin Human Regular IQ4HR SC 04/08/24 04:00 04/17/24 12:00 4 UNITS Dextrose 50 ml UD PRN IV 04/08/24 00:15 04/13/24 10:15 50 ML Pantoprazole Sodium 40 mg DAILY IV 04/09/24 08:00 04/17/24 10:00 40 MG Norepinephrine Bitartrate 250 ml @ 3.75 mls/hr Q24H IV 04/13/24 12:45 04/16/24 17:36 3.75 MLS/HR Meropenem 50 ml @ 17 mls/hr Q12HR IV 04/13/24 22:00 04/17/24 10:14 17 MLS/HR Vancomycin HCl 0 ml @ 0 mls/hr UD IV 04/13/24 15:15 Midazolam HCl 50 ml @ 1 mls/hr Q24H IV 04/13/24 15:45 04/13/24 16:44 1 MLS/HR Fentanyl Citrate 250 ml @ 2.5 mls/hr Q24H IV 04/13/24 15:45 04/16/24 06:16 5 MLS/HR Vasopressin 20 units/Sodium Chloride 100 ml @ 9 mls/hr Q11H7M IV 04/13/24 15:45 04/16/24 21:26 9 MLS/HR Enteral Nutritional Formula 1,000 ml 30ML/HR GT 04/15/24 08:45 Artificial Tears 1 drop Q6HP PRN EACHEYE 04/15/24 09:00 Hydrocortisone Sodium Succinate 50 mg Q12HR IV 04/16/24 10:00 04/17/24 09:59 50 MG Purified Water 150 ml Q6HR GT 04/17/24 12:00 04/17/24 13:16 150 ML objective GENERAL: Intubated on ventilator. LUNGS: Decreased breath sounds. CARDIOVASCULAR: Heart sounds are good. ABDOMEN: Soft. EXT: +1 pitting edema. laboratory and microbiology Laboratory Tests 04/17/24 04:50 Test 04/17/24 04:50 Range/Units Serum Glucose 283 H 74-106 mg/dL Problem List Questionable atrial fibrillation (takes Eliquis at home). Coronary artery disease status post triple-vessel CABG. Acute on chronic HFrEF, NYHA class III. Sepsis. Hypertension. Hyperlipidemia. CVA with right-sided deficit. Chronic kidney disease. Type 2 diabetes mellitus. Transaminitis. Anemia. Osteoporosis. Dementia. Bed-bound. Assessment/Plan Continued all current supportive medical care. IV antibiotics as ordered. GI prophylactics. Vasopressors for hemodynamic support. Additional plan as per the hospital course. Critical care time of 45 minutes provided to include time spent evaluation of patient at bedside, when appropriate patient/family education for diagnosis, treatment plan, review of pertinent medical information and discussion of care with specialty providers and PCP. Mechanical ventilator parameters, treatment and adjustments have personally been reviewed by me and treatment plan by electric brain wave equipment mechanic has also been reviewed. Dietary Evaluation Review Recommendations by RD: Protein Supplementation Comments: 1) If NPO > 7 days, consider EN/TPN to meet at least 75% of estimated daily energy needs. 2) Initiate Lucas @ 1 pk bid when medically feasible. 3) Advance diet to 60g CCHO/cardiac when medically feasible, pending VARNISH COOKER approval. 4) Continue to monitor nutrition-related labs. Expected Outcomes/Goals: 1) diet to advance 2) appetite and labs to improve 3) f/u in 3-5 days Plan discussed with: Other CC Plasma Assessment Blood Product Administration S: 12:55 JONNA MAGANA MD Apr 17, 2024 13:59
--- NOTE | 2024-04-17 23:15 | DVHPN2 ---
Progress Note - Dictate Date Seen: Apr 17, 2024 Medical Necessity Reason Pt with a Central, PICC or Fol: Yes The following are medically ne: Central Line, PICC Line, Celaya Catheter Reason for celaya catheter: Strict I&O Subjective Patient seen and examined at bedside. Sedated, intubated on mechanical ventilator. Overnight events reviewed. vital signs Vital Sign Date Time Temp Pulse Resp B/P (MAP) Pulse Ox O2 Delivery O2 Flow Rate FiO2 04/17/24 23:02 98.6 90 20 117/63 98.6 04/17/24 22:03 99 35 04/17/24 08:00 Mechanical Ventilator+ Total Intake and Output 04/16/24 04/16/24 04/17/24 15:00 23:00 07:00 Intake Total 200.75 ml 898.25 ml 653.75 ml Output Total 800 ml 750 ml Balance 200.75 ml 98.25 ml -96.25 ml medications Current Medications Medications Dose Ordered Sig/Gus Route Start Time Stop Time Status Last Admin Dose Admin Al Hydrox/Mg Hydrox/Simethicone 5 ml QID MT 04/07/24 22:00 04/17/24 18:22 5 ML Diagnostic Test (Pha) 1 strip IQ4HR 04/08/24 04:00 04/17/24 16:05 1 STRIP Insulin Human Regular IQ4HR SC 04/08/24 04:00 04/17/24 16:05 4 UNITS Dextrose 50 ml UD PRN IV 04/08/24 00:15 04/13/24 10:15 50 ML Pantoprazole Sodium 40 mg DAILY IV 04/09/24 08:00 04/17/24 10:00 40 MG Norepinephrine Bitartrate 250 ml @ 3.75 mls/hr Q24H IV 04/13/24 12:45 04/17/24 16:29 11.25 MLS/HR Meropenem 50 ml @ 17 mls/hr Q12HR IV 04/13/24 22:00 04/17/24 10:14 17 MLS/HR Vancomycin HCl 0 ml @ 0 mls/hr UD IV 04/13/24 15:15 Midazolam HCl 50 ml @ 1 mls/hr Q24H IV 04/13/24 15:45 04/13/24 16:44 1 MLS/HR Fentanyl Citrate 250 ml @ 2.5 mls/hr Q24H IV 04/13/24 15:45 04/17/24 16:58 5 MLS/HR Vasopressin 20 units/Sodium Chloride 100 ml @ 9 mls/hr Q11H7M IV 04/13/24 15:45 04/16/24 21:26 9 MLS/HR Enteral Nutritional Formula 1,000 ml 30ML/HR GT 04/15/24 08:45 Artificial Tears 1 drop Q6HP PRN EACHEYE 04/15/24 09:00 Hydrocortisone Sodium Succinate 50 mg Q12HR IV 04/16/24 10:00 04/17/24 09:59 50 MG Purified Water 150 ml Q6HR GT 04/17/24 12:00 04/17/24 18:21 150 ML Bumetanide 1 mg BIDD IV 04/17/24 18:00 04/17/24 18:13 1 MG Micafungin Sodium 100 mg/Sodium Chloride 100 ml @ 100 mls/hr DAILY IV 04/18/24 10:00 objective Gen.: Patient lying in bed in medical ICU. Sedated, intubated on mechanical ventilator. Head: Normocephalic, atraumatic. Eyes: PERRLA. Ears: Normal external anatomy. Throat: Endotracheal tube and orogastric tube in place. Neck: Supple, trachea midline. Chest: Transmitted breath sounds bilaterally. Decreased air entry bilaterally. No wheezing. Bibasilar crackles. Cardiovascular: Positive S1, positive S2. Regular rate and rhythm. Abdomen: Positive bowel sounds in all 4 quadrants. Soft, nontender, nondistended. : Celaya in place. Normal external genitalia. Rectal: Deferred. Skin: Warm, dry. Intact. Extremities: 2+ radial pulses bilaterally. No lower extremity edema. Neuro: Sedated. laboratory and microbiology Laboratory Tests 04/17/24 15:27 04/17/24 04:50 Test 04/17/24 15:27 Range/Units Serum Glucose 216 H 74-106 mg/dL Assessment/Plan Impression: Acute hypoxic respiratory failure On mechanical ventilator Shock Acute metabolic encephalopathy Aspiration pneumonia Events: Remains on vent support On AC mode; RR 20, VT 400, PEEP 8, FiO2 30% -->35% Sedated on Fentanyl drip. On pressors for hemodynamic support Levophed 8 mcg/min Titrate to keep mean arterial pressure greater than 65 mmHg. S/p 1 unit FFP + 1 unit PRBC transfusion Monitor hemoglobin Tube feeds for nutritional support Patient is not tolerating turns. Poor prognosis. Labs and imaging reviewed. Rest of plan as noted below. Plan: s/p intubation on mechanical ventilator. CXR image and report reviewed. Devices in place. Airspace disease worsening in the left lower lobe. No pneumothorax. No pleural effusion. On AC mode; RR 20, VT 400, PEEP 8, FiO2 35% Titrate FIO2 to keep O2 saturation above 90%. VAP bundle. Daily ABG and CXR while intubated Sedate for ventilator synchrony Patient is too unstable for CT head. Continue antibiotics. F/u cultures. On pressors for hemodynamic support Titrate to keep mean arterial pressure greater than 65 mmHg. Monitor renal function Monitor electrolytes. Supplement as necessary. Monitor ins and outs. Maintain euvolemia. GI prophylaxis. DVT prophylaxis. Prognosis: Poor given patient's multiple co-morbidities. Condition: Critical Rest of plan per hospitalist and other consultants. A total of 35 minutes of critical care time was spent reviewing the patient record, examining the patient, making a diagnostic and therapeutic plan, discussing this plan with the medical personnel, following up on diagnostic studies and following the patient for clinical stability excluding any and all procedures. At least 50% of this time was spent in direct, [id number] contact. Thank you Dr. Curiel for allowing me to participate in this patient's care. Further recommendations will depend on the patient's clinical course. Please do not hesitate to contact me if you have any questions or concerns. This medical document was created using an electronic medical record system with [employer] computerized dictation system. Although these documentations are being carefully reviewed, there may still be some phonetic and typographical changes. The errors are purely typographical, due to imperfection on the software program, and do not reflect any compromise in the patient's medical care. Dietary Evaluation Review Recommendations by RD: Protein Supplementation Comments: 1) If NPO > 7 days, consider EN/TPN to meet at least 75% of estimated daily energy needs. 2) Initiate Lucas @ 1 pk bid when medically feasible. 3) Advance diet to 60g CCHO/cardiac when medically feasible, pending CLINICAL RESEARCH PHYSICIAN approval. 4) Continue to monitor nutrition-related labs. Expected Outcomes/Goals: 1) diet to advance 2) appetite and labs to improve 3) f/u in 3-5 days Plan discussed with: Other (ENRIQUE Marte) Critical Care Time(min): 35 CC Plasma Assessment Blood Product Administration S: 12:55 GUILLERMINA WILLSON MD Apr 17, 2024 23:15
[2024-04-17 23:43] LABS: Urine Bacteria None Seen /hpf (None Seen)
[2024-04-18] VITALS (110 sets, daily range): BP systolic 77–143; BP diastolic 34–85; PULSE 20–112; RESP 16–21; TEMP 97.3–99.1; O2SAT 88–100
[2024-04-18 00:40] LABS: Urine Blood 2+ /uL (Negative); Urine Budding Yeast LOADED /hpf (None Seen); Urine Clarity Turbid (Clear); Urine Color Dark-Yellow (Yellow); Urine Mucus FEW (None Seen); Urine Protein, UAD 2+ (Negative); Urine Specific Gravity 1.022 (1.001-1.035); Urine Squamous Epithelial Cell None Seen /hpf (<5); Urine Urobilinogen 2 mg/dL (Negative); Urine WBC 7 /hpf (0 - 5); Urine pH 5.5 (5.0-9.0)
[2024-04-18 03:02] LABS: Anion Gap 8 (5-15); Calcium 9.6 mg/dL (8.7-10.4); Carbon Dioxide 25 mmol/L (20-31)
[2024-04-18 03:14] LABS: BUN/Creatinine Ratio 23.1 (10.0-20.0)
[2024-04-18 03:41] LABS: Blood Urea Nitrogen 27 mg/dL (9-23); Chloride 118 mmol/L (98-107); Glucose 191 mg/dL (74-106); Potassium 3.5 mmol/L (3.5-5.1); Sodium 151 mmol/L (136-145)
--- NOTE | 2024-04-18 06:00 | DVH ---
CHEST RADIOGRAPH Indication: Mechanical vent Technique: Single frontal view of the chest was obtained Comparison: XY CHEST PORTABLE on DOS: 04/17/24, XY CHEST PORTABLE on DOS: 04/17/24, XY CHEST PORTABLE on DOS: 04/16/24 FINDINGS: Lines and Tubes: The endotracheal tube terminates 3.8 cm above the nora. Right central venous cath eter terminates in the superior vena cava. The enteric tube terminates in the stomach. Lungs: Bibasilar airspace disease. Pleura: No effusion. No pneumothorax. Cardiomediastinal contours: Unremarkable Bones: No acute osseous abnormality. IMPRESSION: 1. No significant change in appearance of the support lines and tubes. 2. Bibasilar airspace disease.
[2024-04-18 07:22] LABS: Basophils # (auto) 0 10 ^3/uL (0-0.2); Eosinophils # (auto) 0 10 ^3/uL (0-0.8); Eosinophils % (auto) 0.1 % (0.0-7.0); Monocytes # (auto) 0.2 10 ^3/uL (0-1.3); Monocytes % (auto) 3.6 % (0.0-12.0); Neutrophils # (auto) 4.3 10 ^3/uL (1.6-8.6); White Blood Cell 5.3 10^3/uL (4.4-10.8)
[2024-04-18 07:26] LABS: Alanine Aminotransferase 27 U/L (7-40); Anion Gap 10 (5-15); Calcium 9.9 mg/dL (8.7-10.4); Carbon Dioxide 24 mmol/L (20-31)
[2024-04-18 07:27] LABS: Basophils % (auto) 0.2 % (0.0-2.0); Hematocrit 25.2 % (36.0-46.0); Hemoglobin 8.7 g/dL (12.2-16.2); INR 2.12 (0.9-1.15); Lymphocytes # (auto) 0.9 10 ^3/uL (0.4-5.4); Lymphocytes % (auto) 16.2 % (10.0-50.0); Magnesium 1.7 mg/dL (1.6-2.6); Mean Corpuscular Hgb Conc. 34.7 g/dL (32.0-36.0); Mean Corpuscular Volume 89.5 fL (80.0-100.0); Neutrophils % (auto) 79.9 % (37.0-80.0); Nucleated Red Blood Cells % 2.2 %; Partial Thromboplastin Time 46.1 SEC (24.5-34.5); Platelet Count (auto) 21 10^3/uL (140-450); Prothrombin Time 21.3 sec (9.3-11.8); Red Blood Cells 2.82 10^6/uL (4.0-5.20); Red Cell Distribution Width 16.8 % (11.8-14.3)
[2024-04-18 07:37] LABS: Alkaline Phosphatase 233 U/L (46-116); Aspartate Aminotransferase 73 U/L (13-40); Bilirubin, Total 10.5 mg/dL (0.2-1.0); Blood Urea Nitrogen 27 mg/dL (9-23); Chloride 117 mmol/L (98-107); Glucose 214 mg/dL (74-106); Potassium 3.5 mmol/L (3.5-5.1); Sodium 151 mmol/L (136-145); Total Protein 4.7 g/dL (5.7-8.2)
[2024-04-18 08:06] LABS: Base Excess -4.4 mmol/L (-2.0-3.0)
[2024-04-18 08:51] LABS: BUN/Creatinine Ratio 22.7 (10.0-20.0)
[2024-04-18] MEDS: MICAFUNGIN SODIUM 100 MG in SODIUM CHL 0.9% 100 ML IV SCH (10:21)
[2024-04-18] MEDS: POTASSIUM EFFERVESENT TAB 25 MEQ GT ONE (13:25)
[2024-04-18] MEDS: MAGNESIUM OXIDE 400 MG TAB PO ONE (13:28)
[2024-04-18] MEDS: POTASSIUM CHL 20MEQ/100ML 100 ML IV ONE (13:35)
[2024-04-18] MEDS: FREE WATER GT SCH (15:00)
[2024-04-18] MEDS: VANCOMYCIN 500mg/100mL 100 ML IV ONE (16:07)
[2024-04-18 16:37] LABS: Potassium 4.6 mmol/L (3.5-5.1)
[2024-04-18 16:38] LABS: Anion Gap 9 (5-15); Carbon Dioxide 24 mmol/L (20-31)
[2024-04-18 16:39] LABS: Calcium 9.9 mg/dL (8.7-10.4)
[2024-04-18 16:46] LABS: Phosphorus 2.6 mg/dL (2.4-5.1)
[2024-04-18 16:47] LABS: Blood Urea Nitrogen 30 mg/dL (9-23); Chloride 116 mmol/L (98-107); Glucose 154 mg/dL (74-106); Magnesium 1.5 mg/dL (1.6-2.6); Sodium 149 mmol/L (136-145)
[2024-04-18 16:48] LABS: BUN/Creatinine Ratio 24.2 (10.0-20.0)
--- NOTE | 2024-04-18 17:12 | DVHPNRES ---
Progress Note Date Seen: Apr 18, 2024 Resident Creating Document: HUONG ARAUJO RESIDENT Medical Necessity Reason Pt with a Central, PICC or Fol: Yes The following are medically ne: Central Line, PICC Line, Celaya Catheter Reason for celaya catheter: Strict I&O Subjective Review of Systems pt seen and examined at bedside currently sedated and intubated ROS could not be done as patient is sedated and intubated Objective vital signs Vital Sign Date Time Temp Pulse Resp B/P (MAP) Pulse Ox O2 Delivery O2 Flow Rate FiO2 04/18/24 17:00 98.4 79 20 143/73 (96) 100 209.1 04/18/24 15:25 30 04/18/24 08:00 Mechanical Ventilator+ Total Intake and Output 04/17/24 04/17/24 04/18/24 15:00 23:00 07:00 Intake Total 450.0 ml 1686.75 ml 964.0 ml Output Total 300 ml 200 ml Balance 450.0 ml 1386.75 ml 764.0 ml medications Current Medications Medications Dose Ordered Sig/Gus Route Start Time Stop Time Status Last Admin Dose Admin Al Hydrox/Mg Hydrox/Simethicone 5 ml QID MT 04/07/24 22:00 04/18/24 12:00 5 ML Diagnostic Test (Pha) 1 strip IQ4HR 04/08/24 04:00 04/18/24 12:00 1 STRIP Dextrose 50 ml UD PRN IV 04/08/24 00:15 04/13/24 10:15 50 ML Pantoprazole Sodium 40 mg DAILY IV 04/09/24 08:00 04/18/24 10:20 40 MG Norepinephrine Bitartrate 250 ml @ 3.75 mls/hr Q24H IV 04/13/24 12:45 04/17/24 16:29 11.25 MLS/HR Meropenem 50 ml @ 17 mls/hr Q12HR IV 04/13/24 22:00 04/18/24 10:21 17 MLS/HR Vancomycin HCl 0 ml @ 0 mls/hr UD IV 04/13/24 15:15 Midazolam HCl 50 ml @ 1 mls/hr Q24H IV 04/13/24 15:45 04/13/24 16:44 1 MLS/HR Fentanyl Citrate 250 ml @ 2.5 mls/hr Q24H IV 04/13/24 15:45 04/17/24 16:58 5 MLS/HR Vasopressin 20 units/Sodium Chloride 100 ml @ 9 mls/hr Q11H7M IV 04/13/24 15:45 04/16/24 21:26 9 MLS/HR Enteral Nutritional Formula 1,000 ml 30ML/HR GT 04/15/24 08:45 Artificial Tears 1 drop Q6HP PRN EACHEYE 04/15/24 09:00 Hydrocortisone Sodium Succinate 50 mg Q12HR IV 04/16/24 10:00 04/18/24 10:20 50 MG Micafungin Sodium 100 mg/Sodium Chloride 100 ml @ 100 mls/hr DAILY IV 04/18/24 10:00 04/18/24 10:21 100 MLS/HR Insulin Human Regular HOLD INSULIN FOR BL... IQ4HR SC 04/18/24 16:00 Purified Water 250 ml Q6HR GT 04/18/24 15:00 Magnesium Sulfate/ Dextrose 100 ml @ 100 mls/hr Q1HR IV 04/18/24 17:00 04/18/24 18:59 UNV Examination Physical exam Gen : sedated and intubated, gen anasarca CVS: normal S1/S2 Respi : b/l a/e +, on mech vent Neuro : sedated gi : soft laboratory and microbiology Laboratory Tests 04/18/24 16:05 04/18/24 05:10 Test 04/18/24 16:05 Range/Units Serum Glucose 154 H 74-106 mg/dL Microbiology Date/Time Source Procedure Growth Status 04/17/24 17:53 Sputum Gram Stain - Final Resulted 04/17/24 17:53 Sputum Respiratory Culture - Preliminary Resulted 04/08/24 21:15 Nose MRSA Screen - Final Complete 04/08/24 00:40 Blood Blood Culture - Final NO GROWTH AFTER 5 DAYS OF INCUBATION. Complete 04/07/24 21:30 Urine - Celaya Port Urine Culture - Final Complete Labs and/or images reviewed: Labs reviewed by me, Image(s) reviewed by me Problem List/Assessment/Plan Problem List/Assessment/Plan Assessment/plan Neurology #Sedation Fentanyl #acute metabolic encephalopathy 2/2 sepsis on dementia, ?thiamine def -head CT -thiamine IV # history of dementia ? Thiamine deficiency Cardiology #septic vs cardiogenic shock -currently on norepinephrine -IV steroids -repeat panculture #extravascular fluid overload likely oncotic albumin f/b Lasix, discontinued #acute on chronic heart failure with reduced ejection fraction 40% -currently on vasopressin and norepinephrine #CAD s/p CABG -hold antiplatelet/anticoagulation considering low platelet count # history of DVT Repeat lower extremity Doppler venous showed evidence of nonocclusive thrombus in bilateral femoral veins # superficial venous phlebitis right arm Warm compresses Infectious disease #Sepsis due to aspiration pneumonia/ infected wounds -IV antibiotics -repeat panculture #infected sacral ulcer -IV antibiotics Respiratory #acute hypoxic respiratory failure 2/2 aspiration PNA -on mech vent #? Aspiration pneumonia IV antibiotics Nephrology #MELVINA likely ATN -IV fluids, lactated ringer 500 cc bolus # hypokalemia Replaced #Hypomagnesemia -replace # hyponatremia -free water through NG tube Hematology/oncology #Severe anemia -requiring blood transfusion -ordered hemolysis workup -1 unit PRBC -hematology oncology workup Haptoglobin, direct, indirect Shira test, LDH #?DIC -2 unit of FFP transfused #?HIT -4t Score of 6 -stopped Lovenox #thrombocytopenia -1 unit of PRP Nutrition started on Nepro with Carb steady FULL CODE DVT prophylaxis, on hold due to low platelet count SCDs Drips Norepinephrine Lines Right subclavian FULL CODE Case discussion with dr Aleman Plan discussed with: Other My Orders My Orders Orders - HUONG ARAUJO RESIDENT Procedure Category Date Status Time Micafungin Sodium PHA 04/18/24 In Process (Mycamine) 10:00 Chest Portable XY 04/18/24 Resulted 04:00 Abg W/ Co-Ox RT 04/18/24 Logged 04:00 Cover Wound With Dry GWENDOLYN 04/17/24 In Process Dressing 11:32 Chest Portable XY 04/17/24 Resulted 20:04 Insulin R (Human) PHA 04/18/24 In Process (Insulin R) 16:00 Pheresis Platelets BBK 04/18/24 In Process 13:07 Frozen Plasma BBK 04/18/24 In Process 13:07 Magnesium Sulfate PHA 04/18/24 Logged 1gm/100ml 17:00 Dietary Evaluation Review Recommendations by RD: Protein Supplementation Comments: 1) If NPO > 7 days, consider EN/TPN to meet at least 75% of estimated daily energy needs. 2) Initiate Lucas @ 1 pk bid when medically feasible. 3) Advance diet to 60g CCHO/cardiac when medically feasible, pending DOCUMENT PROCESSING SPECIALIST approval. 4) Continue to monitor nutrition-related labs. Expected Outcomes/Goals: 1) diet to advance 2) appetite and labs to improve 3) f/u in 3-5 days CC Plasma Assessment Blood Product Administration S: 12:55 Date of Service: Apr 18, 2024 Billing Provider: TAMMI ALEMAN MD Common Visit Codes: [id number] CARE 30-74 MIN HUONG ARAUJO RESIDENT Apr 18, 2024 17:12 TAMMI ALEMAN MD Apr 23, 2024 17:22
[2024-04-18] MEDS: InsuLIN REG 1unit/0.01ml Soln (100units/ml) SC SCH (18:00)
[2024-04-18] MEDS: MAGNESIUM SULFATE 1GM/100ML 100 ML IV SCH (18:07)
--- NOTE | 2024-04-18 18:16 | DVHPN2 ---
Progress Note - Dictate Date Seen: Apr 18, 2024 Medical Necessity Reason Pt with a Central, PICC or Fol: Yes The following are medically ne: Central Line, PICC Line, Celaya Catheter Reason for celaya catheter: Strict I&O Subjective Patient was seen and valuated in follow up in the ICU. Patient is intubated and sedated on ventilator. FiO2 35%. HGB 8.7, HCT 25.2, NA 151, CL 117, BUN 27, 1.19, GLUC 212, AST 73. Chest x-ray shows bibasilar airspace disease. vital signs Vital Sign Date Time Temp Pulse Resp B/P (MAP) Pulse Ox O2 Delivery O2 Flow Rate FiO2 04/18/24 10:56 97 20 92/58 (69) 100 35 04/18/24 10:45 99.0 210.2 04/17/24 20:00 Mechanical Ventilator+ Total Intake and Output 04/17/24 04/17/24 04/18/24 15:00 23:00 07:00 Intake Total 450.0 ml 1686.75 ml 964.0 ml Output Total 300 ml 200 ml Balance 450.0 ml 1386.75 ml 764.0 ml medications Current Medications Medications Dose Ordered Sig/Gus Route Start Time Stop Time Status Last Admin Dose Admin Al Hydrox/Mg Hydrox/Simethicone 5 ml QID MT 04/07/24 22:00 04/18/24 06:32 5 ML Diagnostic Test (Pha) 1 strip IQ4HR 04/08/24 04:00 04/18/24 08:24 1 STRIP Insulin Human Regular IQ4HR SC 04/08/24 04:00 04/18/24 08:24 4 UNITS Dextrose 50 ml UD PRN IV 04/08/24 00:15 04/13/24 10:15 50 ML Pantoprazole Sodium 40 mg DAILY IV 04/09/24 08:00 04/18/24 10:20 40 MG Norepinephrine Bitartrate 250 ml @ 3.75 mls/hr Q24H IV 04/13/24 12:45 04/17/24 16:29 11.25 MLS/HR Meropenem 50 ml @ 17 mls/hr Q12HR IV 04/13/24 22:00 04/18/24 10:21 17 MLS/HR Vancomycin HCl 0 ml @ 0 mls/hr UD IV 04/13/24 15:15 Midazolam HCl 50 ml @ 1 mls/hr Q24H IV 04/13/24 15:45 04/13/24 16:44 1 MLS/HR Fentanyl Citrate 250 ml @ 2.5 mls/hr Q24H IV 04/13/24 15:45 04/17/24 16:58 5 MLS/HR Vasopressin 20 units/Sodium Chloride 100 ml @ 9 mls/hr Q11H7M IV 04/13/24 15:45 04/16/24 21:26 9 MLS/HR Enteral Nutritional Formula 1,000 ml 30ML/HR GT 04/15/24 08:45 Artificial Tears 1 drop Q6HP PRN EACHEYE 04/15/24 09:00 Hydrocortisone Sodium Succinate 50 mg Q12HR IV 04/16/24 10:00 04/18/24 10:20 50 MG Purified Water 150 ml Q6HR GT 04/17/24 12:00 04/18/24 06:32 150 ML Bumetanide 1 mg BIDD IV 04/17/24 18:00 04/18/24 06:32 1 MG Micafungin Sodium 100 mg/Sodium Chloride 100 ml @ 100 mls/hr DAILY IV 04/18/24 10:00 04/18/24 10:21 100 MLS/HR objective GENERAL: Intubated on ventilator. LUNGS: Decreased breath sounds. CARDIOVASCULAR: Heart sounds are good. ABDOMEN: Soft. EXT: +1 pitting edema. laboratory and microbiology Laboratory Tests 04/18/24 05:10 Test 04/18/24 05:10 Range/Units Serum Glucose 214 H 74-106 mg/dL Problem List Questionable atrial fibrillation (takes Eliquis at home). Coronary artery disease status post triple-vessel CABG. Acute on chronic HFrEF, NYHA class III. Sepsis. Hypertension. Hyperlipidemia. CVA with right-sided deficit. Chronic kidney disease. Type 2 diabetes mellitus. Transaminitis. Anemia. Osteoporosis. Dementia. Bed-bound. Assessment/Plan Continued all current supportive medical care. IV antibiotics as ordered. GI prophylactics. Vasopressors for hemodynamic support. Additional plan as per the hospital course. Critical care time of 45 minutes provided to include time spent evaluation of patient at bedside, when appropriate patient/family education for diagnosis, treatment plan, review of pertinent medical information and discussion of care with specialty providers and PCP. Mechanical ventilator parameters, treatment and adjustments have personally been reviewed by me and treatment plan by game show host has also been reviewed. Dietary Evaluation Review Recommendations by RD: Protein Supplementation Comments: 1) If NPO > 7 days, consider EN/TPN to meet at least 75% of estimated daily energy needs. 2) Initiate Lucas @ 1 pk bid when medically feasible. 3) Advance diet to 60g CCHO/cardiac when medically feasible, pending UNDERCOLLAR BASTER approval. 4) Continue to monitor nutrition-related labs. Expected Outcomes/Goals: 1) diet to advance 2) appetite and labs to improve 3) f/u in 3-5 days Plan discussed with: Other CC Plasma Assessment Blood Product Administration S: 12:55 JONNA MAGANA MD Apr 18, 2024 11:54
[2024-04-18] MEDS: AMIODARONE 450mg/250ml AE 0 ML IV ONE (22:41)
--- NOTE | 2024-04-18 23:33 | DVHPN2 ---
Progress Note - Dictate Date Seen: Apr 18, 2024 Medical Necessity Reason Pt with a Central, PICC or Fol: Yes The following are medically ne: Central Line, PICC Line, Celaya Catheter Reason for celaya catheter: Strict I&O Subjective Patient seen and examined at bedside. Sedated, intubated on mechanical ventilator. Overnight events reviewed. vital signs Vital Sign Date Time Temp Pulse Resp B/P (MAP) Pulse Ox O2 Delivery O2 Flow Rate FiO2 04/18/24 21:35 97.9 81 20 94/37 97.9 04/18/24 20:03 100 30 04/18/24 08:00 Mechanical Ventilator+ Total Intake and Output 04/17/24 04/17/24 04/18/24 15:00 23:00 07:00 Intake Total 450.0 ml 1686.75 ml 964.0 ml Output Total 300 ml 200 ml Balance 450.0 ml 1386.75 ml 764.0 ml medications Current Medications Medications Dose Ordered Sig/Gus Route Start Time Stop Time Status Last Admin Dose Admin Al Hydrox/Mg Hydrox/Simethicone 5 ml QID MT 04/07/24 22:00 04/18/24 23:25 5 ML Diagnostic Test (Pha) 1 strip IQ4HR 04/08/24 04:00 04/18/24 20:00 1 STRIP Dextrose 50 ml UD PRN IV 04/08/24 00:15 04/13/24 10:15 50 ML Pantoprazole Sodium 40 mg DAILY IV 04/09/24 08:00 04/18/24 10:20 40 MG Norepinephrine Bitartrate 250 ml @ 3.75 mls/hr Q24H IV 04/13/24 12:45 04/18/24 18:02 7.5 MLS/HR Meropenem 50 ml @ 17 mls/hr Q12HR IV 04/13/24 22:00 04/18/24 23:25 17 MLS/HR Vancomycin HCl 0 ml @ 0 mls/hr UD IV 04/13/24 15:15 Midazolam HCl 50 ml @ 1 mls/hr Q24H IV 04/13/24 15:45 04/13/24 16:44 1 MLS/HR Fentanyl Citrate 250 ml @ 2.5 mls/hr Q24H IV 04/13/24 15:45 04/18/24 18:09 5 MLS/HR Vasopressin 20 units/Sodium Chloride 100 ml @ 9 mls/hr Q11H7M IV 04/13/24 15:45 04/16/24 21:26 9 MLS/HR Enteral Nutritional Formula 1,000 ml 30ML/HR GT 04/15/24 08:45 Artificial Tears 1 drop Q6HP PRN EACHEYE 04/15/24 09:00 Hydrocortisone Sodium Succinate 50 mg Q12HR IV 04/16/24 10:00 04/18/24 23:25 50 MG Micafungin Sodium 100 mg/Sodium Chloride 100 ml @ 100 mls/hr DAILY IV 04/18/24 10:00 04/18/24 10:21 100 MLS/HR Insulin Human Regular HOLD INSULIN FOR BL... IQ4HR SC 04/18/24 16:00 Purified Water 250 ml Q6HR GT 04/18/24 15:00 04/18/24 23:26 250 ML objective Gen.: Patient lying in bed in medical ICU. Sedated, intubated on mechanical ventilator. Head: Normocephalic, atraumatic. Eyes: PERRLA. Ears: Normal external anatomy. Throat: Endotracheal tube and orogastric tube in place. Neck: Supple, trachea midline. Chest: Transmitted breath sounds bilaterally. Decreased air entry bilaterally. No wheezing. Bibasilar crackles. Cardiovascular: Positive S1, positive S2. Regular rate and rhythm. Abdomen: Positive bowel sounds in all 4 quadrants. Soft, nontender, nondistended. : Celaya in place. Normal external genitalia. Rectal: Deferred. Skin: Warm, dry. Intact. Extremities: 2+ radial pulses bilaterally. No lower extremity edema. Neuro: Sedated. laboratory and microbiology Laboratory Tests 04/18/24 16:05 04/18/24 05:10 Test 04/18/24 16:05 Range/Units Serum Glucose 154 H 74-106 mg/dL Assessment/Plan Impression: Acute hypoxic respiratory failure On mechanical ventilator Shock Acute metabolic encephalopathy Aspiration pneumonia Events: Remains on vent support On AC mode; RR 20, VT 400, PEEP 8, FiO2 35% -->30% Sedated on Fentanyl drip. On pressors for hemodynamic support Levophed 2 mcg/min Titrate to keep mean arterial pressure greater than 65 mmHg. Improved pressor requirements FFP Monitor hemoglobin Monitor platelets Tube feeds for nutritional support Monitor renal function Monitor electrolytes. Supplement as necessary. Mag supplementation Patient is not tolerating turns. Poor prognosis. Labs and imaging reviewed. Rest of plan as noted below. Plan: s/p intubation on mechanical ventilator. CXR image and report reviewed. Devices in place. Airspace disease worsening in the left lower lobe. No pneumothorax. No pleural effusion. On AC mode; RR 20, VT 400, PEEP 8, FiO2 30% Titrate FIO2 to keep O2 saturation above 90%. VAP bundle. Daily ABG and CXR while intubated Sedate for ventilator synchrony Patient is too unstable for CT head. Continue antibiotics. F/u cultures. On pressors for hemodynamic support Titrate to keep mean arterial pressure greater than 65 mmHg. Monitor renal function Monitor electrolytes. Supplement as necessary. Monitor ins and outs. Maintain euvolemia. GI prophylaxis. DVT prophylaxis. Prognosis: Poor given patient's multiple co-morbidities. Condition: Critical Rest of plan per hospitalist and other consultants. A total of 35 minutes of critical care time was spent reviewing the patient record, examining the patient, making a diagnostic and therapeutic plan, discussing this plan with the medical personnel, following up on diagnostic studies and following the patient for clinical stability excluding any and all procedures. At least 50% of this time was spent in direct, [id number] contact. Thank you Dr. Curiel for allowing me to participate in this patient's care. Further recommendations will depend on the patient's clinical course. Please do not hesitate to contact me if you have any questions or concerns. This medical document was created using an electronic medical record system with [employer] computerized dictation system. Although these documentations are being carefully reviewed, there may still be some phonetic and typographical changes. The errors are purely typographical, due to imperfection on the software program, and do not reflect any compromise in the patient's medical care. Dietary Evaluation Review Recommendations by RD: Protein Supplementation Comments: 1) If NPO > 7 days, consider EN/TPN to meet at least 75% of estimated daily energy needs. 2) Initiate Lucas @ 1 pk bid when medically feasible. 3) Advance diet to 60g CCHO/cardiac when medically feasible, pending PYRIDINE RECOVERY OPERATOR approval. 4) Continue to monitor nutrition-related labs. Expected Outcomes/Goals: 1) diet to advance 2) appetite and labs to improve 3) f/u in 3-5 days Plan discussed with: Other (ENRIQUE Fisher) Critical Care Time(min): 35 CC Plasma Assessment Blood Product Administration S: 12:55 GUILLERMINA WILLSON MD Apr 18, 2024 23:33
[2024-04-19] VITALS (108 sets, daily range): BP systolic 8–150; BP diastolic 38–82; PULSE 72–106; RESP 11–23; TEMP 96.8–97.7; O2SAT 97–100
--- NOTE | 2024-04-19 05:20 | DVH ---
CHEST RADIOGRAPH Indication: mech vent Technique: Single frontal view of the chest was obtained Comparison: XY CHEST PORTABLE on DOS: 04/18/24, XY CHEST PORTABLE on DOS: 04/17/24, XY CHEST PORTABLE on DOS: 04/17/24 IMPRESSION: Enteric tube tip is just beyond the gastroesophageal junction, stable position, however consider adva ncement by 7-8 cm for ideal positioning. The heart appears stable in size with median sternotomy wires. Support lines and tubes appear simila r in position. The lungs appear relatively clear. No discrete pneumothorax.
[2024-04-19 05:28] LABS: Anion Gap 12 (5-15); Calcium 10.1 mg/dL (8.7-10.4); Carbon Dioxide 22 mmol/L (20-31); Magnesium 2.3 mg/dL (1.6-2.6); Potassium 4.4 mmol/L (3.5-5.1)
[2024-04-19 05:29] LABS: Phosphorus 3.1 mg/dL (2.4-5.1)
[2024-04-19 05:34] LABS: Basophils # (auto) 0 10 ^3/uL (0-0.2); Basophils % (auto) 0.1 % (0.0-2.0); Eosinophils # (auto) 0 10 ^3/uL (0-0.8); Eosinophils % (auto) 0.1 % (0.0-7.0); Hemoglobin 7.7 g/dL (12.2-16.2); Mean Corpuscular Hemoglobin 31.2 pg (28.0-32.0); Red Blood Cells 2.47 10^6/uL (4.0-5.20)
[2024-04-19 05:37] LABS: Alanine Aminotransferase 49 U/L (7-40); Alkaline Phosphatase 393 U/L (46-116); Aspartate Aminotransferase 119 U/L (13-40); Bilirubin, Total 12.2 mg/dL (0.2-1.0); Blood Urea Nitrogen 32 mg/dL (9-23); Chloride 112 mmol/L (98-107); Glucose 211 mg/dL (74-106); Hematocrit 22.1 % (36.0-46.0); Lymphocytes # (auto) 0.8 10 ^3/uL (0.4-5.4); Lymphocytes % (auto) 14.2 % (10.0-50.0); Mean Corpuscular Hgb Conc. 34.9 g/dL (32.0-36.0); Mean Corpuscular Volume 89.4 fL (80.0-100.0); Monocytes # (auto) 0.2 10 ^3/uL (0-1.3); Monocytes % (auto) 3.6 % (0.0-12.0); Neutrophils # (auto) 4.4 10 ^3/uL (1.6-8.6); Platelet Count (auto) 104 10^3/uL (140-450); Red Cell Distribution Width 16.7 % (11.8-14.3); Sodium 146 mmol/L (136-145); White Blood Cell 5.4 10^3/uL (4.4-10.8)
[2024-04-19 07:11] LABS: Base Excess -6.2 mmol/L (-2.0-3.0)
[2024-04-19] MEDS: VANCOMYCIN 500mg/100mL 100 ML IV ONE (10:36)
--- NOTE | 2024-04-19 14:29 | DVHPN2 ---
Progress Note - Dictate Date Seen: Apr 19, 2024 Medical Necessity Reason Pt with a Central, PICC or Fol: Yes The following are medically ne: Central Line, PICC Line, Celaya Catheter Reason for celaya catheter: Strict I&O Subjective Adequate urine output vital signs Vital Sign Date Time Temp Pulse Resp B/P (MAP) Pulse Ox O2 Delivery O2 Flow Rate FiO2 04/19/24 12:00 86 04/19/24 12:00 97.2 19 127/64 (85) 100 207.0 04/19/24 12:00 35 04/19/24 08:00 Mechanical Ventilator+ Total Intake and Output 04/18/24 04/18/24 04/19/24 15:00 23:00 07:00 Intake Total 250.0 ml 1470.25 ml 447.00 ml Output Total 425 ml 80 ml Balance 250.0 ml 1045.25 ml 367.00 ml medications Current Medications Medications Dose Ordered Sig/Gus Route Start Time Stop Time Status Last Admin Dose Admin Al Hydrox/Mg Hydrox/Simethicone 5 ml QID MT 04/07/24 22:00 04/19/24 10:44 5 ML Diagnostic Test (Pha) 1 strip IQ4HR 04/08/24 04:00 04/19/24 11:28 1 STRIP Dextrose 50 ml UD PRN IV 04/08/24 00:15 04/13/24 10:15 50 ML Pantoprazole Sodium 40 mg DAILY IV 04/09/24 08:00 04/19/24 08:13 40 MG Norepinephrine Bitartrate 250 ml @ 3.75 mls/hr Q24H IV 04/13/24 12:45 04/18/24 18:02 7.5 MLS/HR Meropenem 50 ml @ 17 mls/hr Q12HR IV 04/13/24 22:00 04/19/24 09:20 17 MLS/HR Vancomycin HCl 0 ml @ 0 mls/hr UD IV 04/13/24 15:15 Midazolam HCl 50 ml @ 1 mls/hr Q24H IV 04/13/24 15:45 04/13/24 16:44 1 MLS/HR Fentanyl Citrate 250 ml @ 2.5 mls/hr Q24H IV 04/13/24 15:45 04/18/24 18:09 5 MLS/HR Vasopressin 20 units/Sodium Chloride 100 ml @ 9 mls/hr Q11H7M IV 04/13/24 15:45 04/16/24 21:26 9 MLS/HR Enteral Nutritional Formula 1,000 ml 30ML/HR GT 04/15/24 08:45 Artificial Tears 1 drop Q6HP PRN EACHEYE 04/15/24 09:00 Hydrocortisone Sodium Succinate 50 mg Q12HR IV 04/16/24 10:00 04/19/24 10:01 50 MG Micafungin Sodium 100 mg/Sodium Chloride 100 ml @ 100 mls/hr DAILY IV 04/18/24 10:00 04/19/24 08:13 100 MLS/HR Insulin Human Regular HOLD INSULIN FOR BL... IQ4HR SC 04/18/24 16:00 04/19/24 11:28 4 UNITS Purified Water 250 ml Q6HR GT 04/18/24 15:00 04/19/24 10:43 250 ML objective Gen: nad heent: nc/at, mmm lungs: Occasional rhonchi cvs: no rub abd: soft, bowel sounds audible ext: no edema laboratory and microbiology Laboratory Tests 04/19/24 04:30 Test 04/19/24 04:30 Range/Units Serum Glucose 211 H 74-106 mg/dL Assessment/Plan Problem List/Assessment/Plan Acute kidney injury hemodynamically mediated in the setting of shock Septic shock Metabolic acidosis /lactic acidosis Urinary tract infection Sacral decubitus ulcers Hypoalbuminemia /transaminitis hypernatremia hypokalemia recs We will hold diuretic and reassess daily Noted mild hypernatremia MELVINA continues to improve Dietary Evaluation Review Recommendations by RD: Protein Supplementation Comments: 1) If NPO > 7 days, consider EN/TPN to meet at least 75% of estimated daily energy needs. 2) Initiate Lucas @ 1 pk bid when medically feasible. 3) Advance diet to 60g CCHO/cardiac when medically feasible, pending SALES AND SERVICE TECHNICIAN approval. 4) Continue to monitor nutrition-related labs. Expected Outcomes/Goals: 1) diet to advance 2) appetite and labs to improve 3) f/u in 3-5 days Plan discussed with: Other CC Plasma Assessment Blood Product Administration S: 12:55 KEI RAWLS MD Apr 19, 2024 14:29
--- NOTE | 2024-04-19 14:57 | DVHPN2 ---
Assessment/Plan Assessment/Plan ICU progress note Subjective Improving during rounds in AM, initially for transfer to telemetry, around noon hypoxic, hypotensive, started on pressors, repeat xray with multifocal lung disease, maintenance fluid discontinued. POCUS done, decreased contractility, IVC >2cm with >50% excursion, JVD clavicular level, blines on right side, trace pleural effusion. oxygenation not improving with oxymizer, had discussion with family regarding goals of care, family wanted full code. Patient was intubated, sedated and placed on mechanical ventilator, 2nd pressor added, started on stress dose steroid, escalated abx, collected sputum culture. a line placed seen by me today during rounds anasarca improving, s/p diuresis, now to maintain net neutral, titrating down pressors, on high dose thiamine, opening eyes to her name but not following command Objective Physical exam intubated, sedated on mechanical ventilation bruises s1 s2 tachycardic course breath sounds abdomen soft b/l UE and LE edema, UE bruising, improving Imaging CXR worsening airspace disease, ETT in place improving Assessment and plan septicshock acute metabolic encephalopathy 2/2 sepsis on dementia acute hypoxic respiratory failure 2/2 aspiration PNA extravascular fluid overload likely oncotic acute on chronic heart failure with reduced ejection fraction 40% CAD s/p CABG dementia MELVINA likely ATN infected sacral ulcer pancytopenia 2/2 sepsis DIC B1 deficiency, wet beriberi? hypoalbuminuria protein calorie malnutrition c/w mechanical ventilation c/w sedation for RAAS -3 meropenem and vancomycin and micafungin c/w levo maintain MAP >70 hydrocortisone 50mg q6, taper down follow cultures s/p oncodiuresis, keep euvolemic consult pulm nephro consult appreciated high dose thiamine CVP monitoring ISS q4 wound consult ulcer precaution VAP bundle Lines ETT celaya R subclav TLC Maintain potassium of 4, phosphate of 3 and magnesium of 2 Diet resume TF GI prophylaxis protonix DVT prophylaxis on hold thrombocytopenic Condition critical Prognosis poor code status full code 75 minutes critical care time spent on this patient including evaluation, chart review, formulating plan and communication with team, excluding any procedures or point of care imaging Plan discussed with: Son My Orders Orders - TAMMI GREENE MD Procedure Category Date Status Time Vancomycin,Random LAB 04/20/24 Verified 05:00 Creatinine LAB 04/20/24 Verified 05:00 Communication Order ORDERS 04/19/24 Transmitted 10:08 Ventilator Orders RT 04/19/24 Transmitted 10:22 Date of Service: Apr 19, 2024 Billing Provider: TAMMI GREENE MD Common Visit Codes: [id number] CARE 30-74 MIN TAMMI GREENE MD Apr 19, 2024 14:57
--- NOTE | 2024-04-19 20:55 | DVHPN2 ---
Progress Note - Dictate Date Seen: Apr 19, 2024 Medical Necessity Reason Pt with a Central, PICC or Fol: Yes The following are medically ne: Central Line, PICC Line, Celaya Catheter Reason for celaya catheter: Strict I&O Subjective Patient seen and examined at bedside. intubated on mechanical ventilator. Overnight events reviewed. vital signs Vital Sign Date Time Temp Pulse Resp B/P (MAP) Pulse Ox O2 Delivery O2 Flow Rate FiO2 04/19/24 20:00 97.5 86 23 99/45 (63) 100 207.5 04/19/24 20:00 35 04/19/24 08:00 Mechanical Ventilator+ Total Intake and Output 04/18/24 04/18/24 04/19/24 15:00 23:00 07:00 Intake Total 250.0 ml 1470.25 ml 447.00 ml Output Total 425 ml 80 ml Balance 250.0 ml 1045.25 ml 367.00 ml medications Current Medications Medications Dose Ordered Sig/Gus Route Start Time Stop Time Status Last Admin Dose Admin Al Hydrox/Mg Hydrox/Simethicone 5 ml QID MT 04/07/24 22:00 04/19/24 15:53 5 ML Diagnostic Test (Pha) 1 strip IQ4HR 04/08/24 04:00 04/19/24 15:50 1 STRIP Dextrose 50 ml UD PRN IV 04/08/24 00:15 04/13/24 10:15 50 ML Pantoprazole Sodium 40 mg DAILY IV 04/09/24 08:00 04/19/24 08:13 40 MG Norepinephrine Bitartrate 250 ml @ 3.75 mls/hr Q24H IV 04/13/24 12:45 04/18/24 18:02 7.5 MLS/HR Meropenem 50 ml @ 17 mls/hr Q12HR IV 04/13/24 22:00 04/19/24 09:20 17 MLS/HR Vancomycin HCl 0 ml @ 0 mls/hr UD IV 04/13/24 15:15 Midazolam HCl 50 ml @ 1 mls/hr Q24H IV 04/13/24 15:45 04/13/24 16:44 1 MLS/HR Fentanyl Citrate 250 ml @ 2.5 mls/hr Q24H IV 04/13/24 15:45 04/18/24 18:09 5 MLS/HR Vasopressin 20 units/Sodium Chloride 100 ml @ 9 mls/hr Q11H7M IV 04/13/24 15:45 04/16/24 21:26 9 MLS/HR Enteral Nutritional Formula 1,000 ml 30ML/HR GT 04/15/24 08:45 Artificial Tears 1 drop Q6HP PRN EACHEYE 04/15/24 09:00 Hydrocortisone Sodium Succinate 50 mg Q12HR IV 04/16/24 10:00 04/19/24 10:01 50 MG Micafungin Sodium 100 mg/Sodium Chloride 100 ml @ 100 mls/hr DAILY IV 04/18/24 10:00 04/19/24 08:13 100 MLS/HR Insulin Human Regular HOLD INSULIN FOR BL... IQ4HR SC 04/18/24 16:00 04/19/24 11:28 4 UNITS Purified Water 250 ml Q6HR GT 04/18/24 15:00 04/19/24 15:52 250 ML objective Gen.: Patient lying in bed in medical ICU. Intubated on mechanical ventilator. Head: Normocephalic, atraumatic. Eyes: PERRLA. Ears: Normal external anatomy. Throat: Endotracheal tube and orogastric tube in place. Neck: Supple, trachea midline. Chest: Transmitted breath sounds bilaterally. Decreased air entry bilaterally. No wheezing. Bibasilar crackles. Cardiovascular: Positive S1, positive S2. Regular rate and rhythm. Abdomen: Positive bowel sounds in all 4 quadrants. Soft, nontender, nondistended. : Celaya in place. Normal external genitalia. Rectal: Deferred. Skin: Warm, dry. Intact. Extremities: 2+ radial pulses bilaterally. No lower extremity edema. Neuro: Off sedation laboratory and microbiology Laboratory Tests 04/19/24 04:30 Test 04/19/24 04:30 Range/Units Serum Glucose 211 H 74-106 mg/dL Assessment/Plan Impression: Acute hypoxic respiratory failure On mechanical ventilator Shock Acute metabolic encephalopathy Aspiration pneumonia Events: Remains on vent support On AC mode; RR 20, VT 400, PEEP 8 -->5, FiO2 30% Off sedation On pressors for hemodynamic support Levophed 1 mcg/min Titrate to keep mean arterial pressure greater than 65 mmHg. Improved pressor requirements Continue antibiotics Monitor hemoglobin Monitor platelets Tube feeds for nutritional support Monitor renal function Monitor electrolytes. Supplement as necessary. Patient is not tolerating turns. Poor prognosis. SBT -CPAP with PS 18, PEEP of 5 Labs and imaging reviewed. Rest of plan as noted below. Plan: s/p intubation on mechanical ventilator. CXR image and report reviewed. Devices in place. Airspace disease worsening in the left lower lobe. No pneumothorax. No pleural effusion. On AC mode; RR 20, VT 400, PEEP 5, FiO2 30% Titrate FIO2 to keep O2 saturation above 90%. VAP bundle. Daily ABG and CXR while intubated Off sedation Patient is too unstable for CT head. Continue antibiotics. F/u cultures. On pressors for hemodynamic support Titrate to keep mean arterial pressure greater than 65 mmHg. Monitor renal function Monitor electrolytes. Supplement as necessary. Monitor ins and outs. Maintain euvolemia. GI prophylaxis. DVT prophylaxis. Prognosis: Poor given patient's multiple co-morbidities. Condition: Critical Rest of plan per hospitalist and other consultants. A total of 35 minutes of critical care time was spent reviewing the patient record, examining the patient, making a diagnostic and therapeutic plan, discussing this plan with the medical personnel, following up on diagnostic studies and following the patient for clinical stability excluding any and all procedures. At least 50% of this time was spent in direct, [id number] contact. Thank you Dr. Curiel for allowing me to participate in this patient's care. Further recommendations will depend on the patient's clinical course. Please do not hesitate to contact me if you have any questions or concerns. This medical document was created using an electronic medical record system with [employer] dictation system. Although these documentations are being carefully reviewed, there may still be some phonetic and typographical changes. The errors are purely typographical, due to imperfection on the software program, and do not reflect any compromise in the patient's medical care. Dietary Evaluation Review Recommendations by RD: Protein Supplementation Comments: 1) If NPO > 7 days, consider EN/TPN to meet at least 75% of estimated daily energy needs. 2) Initiate Lucas @ 1 pk bid when medically feasible. 3) Advance diet to 60g CCHO/cardiac when medically feasible, pending CROSS TIE MAKER approval. 4) Continue to monitor nutrition-related labs. Expected Outcomes/Goals: 1) diet to advance 2) appetite and labs to improve 3) f/u in 3-5 days Plan discussed with: Other (ENRIQUE Bond) Critical Care Time(min): 35 CC Plasma Assessment Blood Product Administration S: 12:55 GUILLERMINA WILLSON MD Apr 19, 2024 20:55
--- NOTE | 2024-04-19 22:09 | DVHPN2 ---
Progress Note - Dictate Date Seen: Apr 19, 2024 Medical Necessity Reason Pt with a Central, PICC or Fol: Yes The following are medically ne: Central Line, PICC Line, Celaya Catheter Reason for celaya catheter: Strict I&O Subjective Patient was seen and valuated in follow up in the ICU. Patient is intubated and sedated on ventilator. FiO2 35%. Patient opens eyes when name, does not follow commands. HGB 7.7, HCT 22.1, NA 146, CL 122, BUN 32, PHYSIOGNOMIST 1.23, AST 119, ALT 49. vital signs Vital Sign Date Time Temp Pulse Resp B/P (MAP) Pulse Ox O2 Delivery O2 Flow Rate FiO2 04/19/24 17:15 97.5 77 22 113/57 (75) 100 207.5 04/19/24 16:00 35 04/19/24 08:00 Mechanical Ventilator+ Total Intake and Output 04/18/24 04/18/24 04/19/24 15:00 23:00 07:00 Intake Total 250.0 ml 1470.25 ml 447.00 ml Output Total 425 ml 80 ml Balance 250.0 ml 1045.25 ml 367.00 ml medications Current Medications Medications Dose Ordered Sig/Gus Route Start Time Stop Time Status Last Admin Dose Admin Al Hydrox/Mg Hydrox/Simethicone 5 ml QID MT 04/07/24 22:00 04/19/24 15:53 5 ML Diagnostic Test (Pha) 1 strip IQ4HR 04/08/24 04:00 04/19/24 15:50 1 STRIP Dextrose 50 ml UD PRN IV 04/08/24 00:15 04/13/24 10:15 50 ML Pantoprazole Sodium 40 mg DAILY IV 04/09/24 08:00 04/19/24 08:13 40 MG Norepinephrine Bitartrate 250 ml @ 3.75 mls/hr Q24H IV 04/13/24 12:45 04/18/24 18:02 7.5 MLS/HR Meropenem 50 ml @ 17 mls/hr Q12HR IV 04/13/24 22:00 04/19/24 09:20 17 MLS/HR Vancomycin HCl 0 ml @ 0 mls/hr UD IV 04/13/24 15:15 Midazolam HCl 50 ml @ 1 mls/hr Q24H IV 04/13/24 15:45 04/13/24 16:44 1 MLS/HR Fentanyl Citrate 250 ml @ 2.5 mls/hr Q24H IV 04/13/24 15:45 04/18/24 18:09 5 MLS/HR Vasopressin 20 units/Sodium Chloride 100 ml @ 9 mls/hr Q11H7M IV 04/13/24 15:45 04/16/24 21:26 9 MLS/HR Enteral Nutritional Formula 1,000 ml 30ML/HR GT 04/15/24 08:45 Artificial Tears 1 drop Q6HP PRN EACHEYE 04/15/24 09:00 Hydrocortisone Sodium Succinate 50 mg Q12HR IV 04/16/24 10:00 04/19/24 10:01 50 MG Micafungin Sodium 100 mg/Sodium Chloride 100 ml @ 100 mls/hr DAILY IV 04/18/24 10:00 04/19/24 08:13 100 MLS/HR Insulin Human Regular HOLD INSULIN FOR BL... IQ4HR SC 04/18/24 16:00 04/19/24 11:28 4 UNITS Purified Water 250 ml Q6HR GT 04/18/24 15:00 04/19/24 15:52 250 ML objective GENERAL: Intubated on ventilator. LUNGS: Decreased breath sounds. CARDIOVASCULAR: Heart sounds are good. ABDOMEN: Soft. EXT: +1 pitting edema. laboratory and microbiology Laboratory Tests 04/19/24 04:30 Test 04/19/24 04:30 Range/Units Serum Glucose 211 H 74-106 mg/dL Problem List Questionable atrial fibrillation (takes Eliquis at home). Coronary artery disease status post triple-vessel CABG. Acute on chronic HFrEF, NYHA class III. Sepsis. Hypertension. Hyperlipidemia. CVA with right-sided deficit. Chronic kidney disease. Type 2 diabetes mellitus. Transaminitis. Anemia. Osteoporosis. Dementia. Bed-bound. Assessment/Plan Continued all current supportive medical care. IV antibiotics as ordered. GI prophylactics. Vasopressors for hemodynamic support. Additional plan as per the hospital course. Critical care time of 45 minutes provided to include time spent evaluation of patient at bedside, when appropriate patient/family education for diagnosis, treatment plan, review of pertinent medical information and discussion of care with specialty providers and PCP. Mechanical ventilator parameters, treatment and adjustments have personally been reviewed by me and treatment plan by can sterilizer has also been reviewed. Dietary Evaluation Review Recommendations by RD: Protein Supplementation Comments: 1) If NPO > 7 days, consider EN/TPN to meet at least 75% of estimated daily energy needs. 2) Initiate Lucas @ 1 pk bid when medically feasible. 3) Advance diet to 60g CCHO/cardiac when medically feasible, pending ADMIN ASST approval. 4) Continue to monitor nutrition-related labs. Expected Outcomes/Goals: 1) diet to advance 2) appetite and labs to improve 3) f/u in 3-5 days Plan discussed with: Other CC Plasma Assessment Blood Product Administration S: 12:55 JONNA MAGANA MD Apr 19, 2024 18:05
[2024-04-20] VITALS (107 sets, daily range): BP systolic 75–141; BP diastolic 37–94; PULSE 77–108; RESP 16–23; TEMP 96.8–97.9; O2SAT 89–100
[2024-04-20 05:22] LABS: Hemoglobin 7.7 g/dL (12.2-16.2); Mean Corpuscular Hemoglobin 31.1 pg (28.0-32.0); Platelet Count (auto) 94 10^3/uL (140-450); Red Blood Cells 2.49 10^6/uL (4.0-5.20); White Blood Cell 6.7 10^3/uL (4.4-10.8)
[2024-04-20 05:26] LABS: Hematocrit 22.5 % (36.0-46.0); Mean Corpuscular Hgb Conc. 34.5 g/dL (32.0-36.0); Mean Corpuscular Volume 90.2 fL (80.0-100.0); Red Cell Distribution Width 17.4 % (11.8-14.3)
[2024-04-20 05:48] LABS: Anion Gap 11 (5-15); Calcium 10.3 mg/dL (8.7-10.4); Carbon Dioxide 22 mmol/L (20-31); Magnesium 2.1 mg/dL (1.6-2.6); Potassium 4.3 mmol/L (3.5-5.1)
[2024-04-20 05:49] LABS: Phosphorus 3.3 mg/dL (2.4-5.1)
[2024-04-20 05:50] LABS: INR 1.68 (0.9-1.15); Prothrombin Time 17.5 sec (9.3-11.8)
[2024-04-20 05:51] LABS: BUN/Creatinine Ratio 26.6 (10.0-20.0)
--- NOTE | 2024-04-20 05:51 | DVH ---
CHEST RADIOGRAPH Indication: intubated Technique: Single frontal view of the chest was obtained Comparison: XY CHEST PORTABLE on DOS: 04/19/24, XY CHEST PORTABLE on DOS: 04/18/24, XY CHEST PORTABLE o n DOS: 04/17/24, XY CHEST PORTABLE on DOS: 04/17/24, XY CHEST PORTABLE on DOS: 04/16/24, XY CHEST PORTABLE on DOS: 04/19/24 FINDINGS: Enteric tube tip is just beyond the gastroesophageal junction, stable position, however consider adva ncement by 7-8 cm for ideal positioning. The heart appears stable in size with median sternotomy wires. Support lines and tubes appear simila r in position. The lungs appear relatively clear. No discrete pneumothorax. IMPRESSION: Enteric tube tip is just beyond the gastroesophageal junction, stable position, however consider adva ncement by 7-8 cm for ideal positioning. No interval change
[2024-04-20 06:01] LABS: Alanine Aminotransferase 67 U/L (7-40); Albumin 2.6 g/dL (3.2-4.8); Alkaline Phosphatase 648 U/L (46-116); Aspartate Aminotransferase 158 U/L (13-40); Blood Urea Nitrogen 37 mg/dL (9-23); Chloride 112 mmol/L (98-107); Glucose 215 mg/dL (74-106); Sodium 145 mmol/L (136-145); Total Protein 4.8 g/dL (5.7-8.2)
[2024-04-20 06:04] LABS: Basophils % (manual) 0 (0.0-2.0); Blast Cells 0; Eosinophils % (manual) 0 (0-7); Metamyelocytes % 0; Myelocytes % 0; Promyelocytes % 0; Reactive Lymphocytes 0
[2024-04-20 08:04] LABS: Band Neutrophils % (manual) 7; Lymphocytes % (manual) 14 (10.0-50.0); Monocytes % (manual) 2 (0-12)
[2024-04-20 08:05] LABS: Anisocytosis Slight; Large Platelets FEW
[2024-04-20 08:06] LABS: Platelet Estimate Decrea
[2024-04-20] MEDS: HYDROCORTISONE SOD SUCC 100 MG/2ML INJ VIAL IV SCH (10:25)
--- NOTE | 2024-04-20 15:59 | DVHPN2 ---
Progress Note - Dictate Date Seen: Apr 20, 2024 Medical Necessity Reason Pt with a Central, PICC or Fol: Yes The following are medically ne: Central Line, PICC Line, Celaya Catheter Reason for celaya catheter: Strict I&O Subjective urine output decreased slightly vital signs Vital Sign Date Time Temp Pulse Resp B/P (MAP) Pulse Ox O2 Delivery O2 Flow Rate FiO2 04/20/24 14:31 96 16 103/37 (59) 100 30 04/20/24 14:01 97.5 207.5 04/20/24 08:00 Mechanical Ventilator+ Total Intake and Output 04/19/24 04/19/24 04/20/24 15:00 23:00 07:00 Intake Total 320.00 ml 105.000 ml 165.000 ml Output Total 100 ml 45 ml Balance 320.00 ml 5.000 ml 120.000 ml medications Current Medications Medications Dose Ordered Sig/Gus Route Start Time Stop Time Status Last Admin Dose Admin Al Hydrox/Mg Hydrox/Simethicone 5 ml QID MT 04/07/24 22:00 04/19/24 15:53 5 ML Diagnostic Test (Pha) 1 strip IQ4HR 04/08/24 04:00 04/20/24 11:47 1 STRIP Dextrose 50 ml UD PRN IV 04/08/24 00:15 04/13/24 10:15 50 ML Pantoprazole Sodium 40 mg DAILY IV 04/09/24 08:00 04/20/24 10:14 40 MG Norepinephrine Bitartrate 250 ml @ 3.75 mls/hr Q24H IV 04/13/24 12:45 04/18/24 18:02 7.5 MLS/HR Meropenem 50 ml @ 17 mls/hr Q12HR IV 04/13/24 22:00 04/20/24 10:14 17 MLS/HR Vancomycin HCl 0 ml @ 0 mls/hr UD IV 04/13/24 15:15 Midazolam HCl 50 ml @ 1 mls/hr Q24H IV 04/13/24 15:45 04/13/24 16:44 1 MLS/HR Fentanyl Citrate 250 ml @ 2.5 mls/hr Q24H IV 04/13/24 15:45 04/18/24 18:09 5 MLS/HR Vasopressin 20 units/Sodium Chloride 100 ml @ 9 mls/hr Q11H7M IV 04/13/24 15:45 04/16/24 21:26 9 MLS/HR Enteral Nutritional Formula 1,000 ml 30ML/HR GT 04/15/24 08:45 Artificial Tears 1 drop Q6HP PRN EACHEYE 04/15/24 09:00 Micafungin Sodium 100 mg/Sodium Chloride 100 ml @ 100 mls/hr DAILY IV 04/18/24 10:00 04/20/24 10:50 100 MLS/HR Insulin Human Regular HOLD INSULIN FOR BL... IQ4HR SC 04/18/24 16:00 04/20/24 11:46 4 UNITS Purified Water 250 ml Q6HR GT 04/18/24 15:00 04/20/24 11:57 250 ML Hydrocortisone Sodium Succinate 50 mg DAILY IV 04/20/24 10:00 04/20/24 10:25 50 MG objective Gen: nad heent: nc/at, mmm lungs: Occasional rhonchi cvs: no rub abd: soft, bowel sounds audible ext: no edema laboratory and microbiology Laboratory Tests 04/20/24 04:54 Test 04/20/24 04:54 Range/Units Serum Glucose 215 H 74-106 mg/dL Assessment/Plan Problem List/Assessment/Plan Acute kidney injury hemodynamically mediated in the setting of shock - improved Septic shock Metabolic acidosis /lactic acidosis Urinary tract infection Sacral decubitus ulcers Hypoalbuminemia /transaminitis hypernatremia hypokalemia recs - we will continue to hold diuretic - will check urine sodium - Daily BMP Dietary Evaluation Review Recommendations by RD: Protein Supplementation Comments: 1) If NPO > 7 days, consider EN/TPN to meet at least 75% of estimated daily energy needs. 2) Initiate Lucas @ 1 pk bid when medically feasible. 3) Advance diet to 60g CCHO/cardiac when medically feasible, pending ELECTRIC DISTRIBUTION CHECKER approval. 4) Continue to monitor nutrition-related labs. Expected Outcomes/Goals: 1) diet to advance 2) appetite and labs to improve 3) f/u in 3-5 days Plan discussed with: Other CC Plasma Assessment Blood Product Administration S: 12:55 KEI RAWLS MD Apr 20, 2024 15:59
[2024-04-20] MEDS: NOREPINEPHRINE 8 MG/250ML KIT 250 ML IV SCH (16:38)
[2024-04-20] MEDS: ARTIFICIAL TEARS 15ml EACHEYE PRN (16:46)
[2024-04-20] MEDS: Nepro With Carb Steady 1 Liter Bottle GT SCH (17:01)
--- NOTE | 2024-04-20 21:22 | DVHPNRES ---
Progress Note Date Seen: Apr 20, 2024 Resident Creating Document: HUONG ARAUJO RESIDENT Medical Necessity Reason Pt with a Central, PICC or Fol: Yes The following are medically ne: Central Line, PICC Line, Celaya Catheter Reason for celaya catheter: Strict I&O Subjective Review of Systems Patient seen and examined at bedside Patient is currently sedated and intubated, on mechanical ventilator Review of system could not be done as patient is sedated Objective vital signs Vital Sign Date Time Temp Pulse Resp B/P (MAP) Pulse Ox O2 Delivery O2 Flow Rate FiO2 04/20/24 20:06 83 20 96/63 (74) 96 30 04/20/24 20:00 Mechanical Ventilator+ 04/20/24 20:00 97.0 206.6 Total Intake and Output 04/19/24 04/19/24 04/20/24 15:00 23:00 07:00 Intake Total 320.00 ml 105.000 ml 165.000 ml Output Total 100 ml 45 ml Balance 320.00 ml 5.000 ml 120.000 ml medications Current Medications Medications Dose Ordered Sig/Gus Route Start Time Stop Time Status Last Admin Dose Admin Al Hydrox/Mg Hydrox/Simethicone 5 ml QID MT 04/07/24 22:00 04/19/24 15:53 5 ML Diagnostic Test (Pha) 1 strip IQ4HR 04/08/24 04:00 04/20/24 20:00 1 STRIP Dextrose 50 ml UD PRN IV 04/08/24 00:15 04/13/24 10:15 50 ML Pantoprazole Sodium 40 mg DAILY IV 04/09/24 08:00 04/20/24 10:14 40 MG Meropenem 50 ml @ 17 mls/hr Q12HR IV 04/13/24 22:00 04/20/24 10:14 17 MLS/HR Vancomycin HCl 0 ml @ 0 mls/hr UD IV 04/13/24 15:15 Midazolam HCl 50 ml @ 1 mls/hr Q24H IV 04/13/24 15:45 04/13/24 16:44 1 MLS/HR Fentanyl Citrate 250 ml @ 2.5 mls/hr Q24H IV 04/13/24 15:45 04/18/24 18:09 5 MLS/HR Vasopressin 20 units/Sodium Chloride 100 ml @ 9 mls/hr Q11H7M IV 04/13/24 15:45 04/16/24 21:26 9 MLS/HR Enteral Nutritional Formula 1,000 ml 30ML/HR GT 04/15/24 08:45 04/20/24 17:01 1,000 ML Artificial Tears 1 drop Q6HP PRN EACHEYE 04/15/24 09:00 Micafungin Sodium 100 mg/Sodium Chloride 100 ml @ 100 mls/hr DAILY IV 04/18/24 10:00 04/20/24 10:50 100 MLS/HR Insulin Human Regular HOLD INSULIN FOR BL... IQ4HR SC 04/18/24 16:00 04/20/24 11:46 4 UNITS Purified Water 250 ml Q6HR GT 04/18/24 15:00 04/20/24 18:11 250 ML Hydrocortisone Sodium Succinate 50 mg DAILY IV 04/20/24 10:00 04/20/24 10:25 50 MG Norepinephrine Bitartrate 250 ml @ 1.875 mls/ hr Q24H IV 04/20/24 16:15 04/20/24 16:38 3.75 MLS/HR Examination Examination General Appearance: Sedated and intubated, generalized anasarca Respiratory: Clear to auscultation, Normal air movement, mechanical ventilation Cardiovascular: Regular rate, Normal S1, Normal S2 Abdominal: Soft Extremities: Bilateral pedal pitting edema Skin: Left arm bruising, right arm oozing, petechiae on chest wall Neuro: Sedated laboratory and microbiology Laboratory Tests 04/20/24 04:54 Test 04/20/24 04:54 Range/Units Serum Glucose 215 H 74-106 mg/dL Microbiology Date/Time Source Procedure Growth Status 04/17/24 23:15 Voided Urine Urine Culture - Preliminary Presumptive Nini albicans Resulted 04/17/24 19:14 Blood Blood Culture - Preliminary NO GROWTH AFTER 72 HOURS OF INCUBATION. Resulted 04/17/24 17:53 Sputum Gram Stain - Final Resulted 04/17/24 17:53 Respiratory Culture - Preliminary Presumptive Nini albicans Resulted 04/08/24 21:15 Nose MRSA Screen - Final Complete Labs and/or images reviewed: Labs reviewed by me, Image(s) reviewed by me Problem List/Assessment/Plan Problem List/Assessment/Plan Assessment/plan Neurology #Sedation Fentanyl #acute metabolic encephalopathy 2/2 sepsis on dementia, ?thiamine def -head CT -thiamine IV # history of dementia ? Thiamine deficiency Cardiology #septic vs cardiogenic shock -currently on norepinephrine -IV steroids, tapered -repeat panculture #extravascular fluid overload likely oncotic albumin f/b Lasix, discontinued #acute on chronic heart failure with reduced ejection fraction 40% -currently on norepinephrine #CAD s/p CABG -hold antiplatelet/anticoagulation considering low platelet count # history of DVT Repeat lower extremity Doppler venous showed evidence of nonocclusive thrombus in bilateral femoral veins # superficial venous phlebitis right arm Warm compresses Infectious disease #Sepsis due to aspiration pneumonia/ infected wounds -IV antibiotics -repeat panculture #infected sacral ulcer -IV antibiotics Respiratory #acute hypoxic respiratory failure 2/2 aspiration PNA -on mech vent #? Aspiration pneumonia IV antibiotics Nephrology #MELVINA likely ATN -IV fluids, lactated ringer 500 cc bolus # hypokalemia Replaced #Hypomagnesemia -replace # hyponatremia -free water through NG tube Hematology/oncology #Severe anemia -requiring blood transfusion -ordered hemolysis workup -1 unit PRBC -hematology oncology workup Haptoglobin, direct, indirect Shira test, LDH #?DIC -2 unit of FFP transfused #?HIT -4t Score of 6 -stopped Lovenox #thrombocytopenia -1 unit of PRP Nutrition started on Nepro with Carb steady FULL CODE DVT prophylaxis, on hold due to low platelet count SCDs Drips Norepinephrine fentanyl Lines Right subclavian FULL CODE Case discussion with dr Aleman Spoke with granddaughter at bedside, updated about the condition of the patient CPAP trial AM Plan discussed with: Other (granddaughter) My Orders My Orders Orders - HUONG ARAUJO RESIDENT Procedure Category Date Status Time Hydrocortisone PHA 04/20/24 In Process Succinate Inj 10:00 Cpap Trial For Am ORDERS 04/20/24 Transmitted 14:30 Dietary Evaluation Review Recommendations by RD: Protein Supplementation Comments: 1) If NPO > 7 days, consider EN/TPN to meet at least 75% of estimated daily energy needs. 2) Initiate Lucas @ 1 pk bid when medically feasible. 3) Advance diet to 60g CCHO/cardiac when medically feasible, pending DEAD MAIL CHECKER approval. 4) Continue to monitor nutrition-related labs. Expected Outcomes/Goals: 1) diet to advance 2) appetite and labs to improve 3) f/u in 3-5 days CC Plasma Assessment Blood Product Administration S: 12:55 Date of Service: Apr 20, 2024 Billing Provider: TAMMI ALEMAN MD Common Visit Codes: [id number] CARE 30-74 MIN HUONG ARAUJO RESIDENT Apr 20, 2024 21:22 TAMMI ALEMAN MD Apr 23, 2024 17:22
--- NOTE | 2024-04-20 23:09 | DVHPN2 ---
Progress Note - Dictate Date Seen: Apr 20, 2024 Medical Necessity Reason Pt with a Central, PICC or Fol: Yes The following are medically ne: Central Line, PICC Line, Celaya Catheter Reason for celaya catheter: Strict I&O Subjective Patient was seen and valuated in follow up in the ICU. Patient is intubated and sedated on ventilator. FiO2 30%. Son and granddaughter at bedside. HGB 7.7, HCT 22.5, PT 17.5, INR 1.68, CL 112, BUN 37, DIRECTOR DECISION SUPPORT 1.39, AST 158, ALT 67. vital signs Vital Sign Date Time Temp Pulse Resp B/P (MAP) Pulse Ox O2 Delivery O2 Flow Rate FiO2 04/20/24 18:45 97.0 83 22 135/75 (95) 99 206.6 04/20/24 18:08 30 04/20/24 08:00 Mechanical Ventilator+ Total Intake and Output 04/19/24 04/19/24 04/20/24 15:00 23:00 07:00 Intake Total 320.00 ml 105.000 ml 165.000 ml Output Total 100 ml 45 ml Balance 320.00 ml 5.000 ml 120.000 ml medications Current Medications Medications Dose Ordered Sig/Gus Route Start Time Stop Time Status Last Admin Dose Admin Al Hydrox/Mg Hydrox/Simethicone 5 ml QID MT 04/07/24 22:00 04/19/24 15:53 5 ML Diagnostic Test (Pha) 1 strip IQ4HR 04/08/24 04:00 04/20/24 15:59 1 STRIP Dextrose 50 ml UD PRN IV 04/08/24 00:15 04/13/24 10:15 50 ML Pantoprazole Sodium 40 mg DAILY IV 04/09/24 08:00 04/20/24 10:14 40 MG Meropenem 50 ml @ 17 mls/hr Q12HR IV 04/13/24 22:00 04/20/24 10:14 17 MLS/HR Vancomycin HCl 0 ml @ 0 mls/hr UD IV 04/13/24 15:15 Midazolam HCl 50 ml @ 1 mls/hr Q24H IV 04/13/24 15:45 04/13/24 16:44 1 MLS/HR Fentanyl Citrate 250 ml @ 2.5 mls/hr Q24H IV 04/13/24 15:45 04/18/24 18:09 5 MLS/HR Vasopressin 20 units/Sodium Chloride 100 ml @ 9 mls/hr Q11H7M IV 04/13/24 15:45 04/16/24 21:26 9 MLS/HR Enteral Nutritional Formula 1,000 ml 30ML/HR GT 04/15/24 08:45 04/20/24 17:01 1,000 ML Artificial Tears 1 drop Q6HP PRN EACHEYE 04/15/24 09:00 Micafungin Sodium 100 mg/Sodium Chloride 100 ml @ 100 mls/hr DAILY IV 04/18/24 10:00 04/20/24 10:50 100 MLS/HR Insulin Human Regular HOLD INSULIN FOR BL... IQ4HR SC 04/18/24 16:00 04/20/24 11:46 4 UNITS Purified Water 250 ml Q6HR GT 04/18/24 15:00 04/20/24 18:11 250 ML Hydrocortisone Sodium Succinate 50 mg DAILY IV 04/20/24 10:00 04/20/24 10:25 50 MG Norepinephrine Bitartrate 250 ml @ 1.875 mls/ hr Q24H IV 04/20/24 16:15 04/20/24 16:38 3.75 MLS/HR objective GENERAL: Intubated on ventilator. LUNGS: Decreased breath sounds. CARDIOVASCULAR: Heart sounds are good. ABDOMEN: Soft. EXT: +1 pitting edema. laboratory and microbiology Laboratory Tests 04/20/24 04:54 Test 04/20/24 04:54 Range/Units Serum Glucose 215 H 74-106 mg/dL Problem List Questionable atrial fibrillation (takes Eliquis at home). Coronary artery disease status post triple-vessel CABG. Acute on chronic HFrEF, NYHA class III. Sepsis. Hypertension. Hyperlipidemia. CVA with right-sided deficit. Chronic kidney disease. Type 2 diabetes mellitus. Transaminitis. Anemia. Osteoporosis. Dementia. Bed-bound. Assessment/Plan Continued all current supportive medical care. IV antibiotics as ordered. GI prophylactics. Vasopressors for hemodynamic support. Additional plan as per the hospital course. Critical care time of 45 minutes provided to include time spent evaluation of patient at bedside, when appropriate patient/family education for diagnosis, treatment plan, review of pertinent medical information and discussion of care with specialty providers and PCP. Mechanical ventilator parameters, treatment and adjustments have personally been reviewed by me and treatment plan by life insurance sales has also been reviewed. Dietary Evaluation Review Recommendations by RD: Protein Supplementation Comments: 1) If NPO > 7 days, consider EN/TPN to meet at least 75% of estimated daily energy needs. 2) Initiate Lucas @ 1 pk bid when medically feasible. 3) Advance diet to 60g CCHO/cardiac when medically feasible, pending ENVIRONMENTAL SCIENCE PROFESSOR approval. 4) Continue to monitor nutrition-related labs. Expected Outcomes/Goals: 1) diet to advance 2) appetite and labs to improve 3) f/u in 3-5 days Plan discussed with: Other CC Plasma Assessment Blood Product Administration S: 12:55 JONNA MAGANA MD Apr 20, 2024 19:23
--- NOTE | 2024-04-20 23:49 | DVHPN2 ---
Progress Note - Dictate Date Seen: Apr 20, 2024 Medical Necessity Reason Pt with a Central, PICC or Fol: Yes The following are medically ne: Central Line, PICC Line, Celaya Catheter Reason for celaya catheter: Strict I&O Subjective Patient seen and examined at bedside. intubated on mechanical ventilator. Overnight events reviewed. vital signs Vital Sign Date Time Temp Pulse Resp B/P (MAP) Pulse Ox O2 Delivery O2 Flow Rate FiO2 04/20/24 22:47 85 20 116/53 (74) 98 30 04/20/24 22:15 97.0 206.6 04/20/24 20:00 Mechanical Ventilator+ Total Intake and Output 04/19/24 04/19/24 04/20/24 15:00 23:00 07:00 Intake Total 320.00 ml 105.000 ml 165.000 ml Output Total 100 ml 45 ml Balance 320.00 ml 5.000 ml 120.000 ml medications Current Medications Medications Dose Ordered Sig/Gus Route Start Time Stop Time Status Last Admin Dose Admin Al Hydrox/Mg Hydrox/Simethicone 5 ml QID MT 04/07/24 22:00 04/19/24 15:53 5 ML Diagnostic Test (Pha) 1 strip IQ4HR 04/08/24 04:00 04/20/24 20:00 1 STRIP Dextrose 50 ml UD PRN IV 04/08/24 00:15 04/13/24 10:15 50 ML Pantoprazole Sodium 40 mg DAILY IV 04/09/24 08:00 04/20/24 10:14 40 MG Meropenem 50 ml @ 17 mls/hr Q12HR IV 04/13/24 22:00 04/20/24 22:20 17 MLS/HR Vancomycin HCl 0 ml @ 0 mls/hr UD IV 04/13/24 15:15 Midazolam HCl 50 ml @ 1 mls/hr Q24H IV 04/13/24 15:45 04/13/24 16:44 1 MLS/HR Fentanyl Citrate 250 ml @ 2.5 mls/hr Q24H IV 04/13/24 15:45 04/18/24 18:09 5 MLS/HR Vasopressin 20 units/Sodium Chloride 100 ml @ 9 mls/hr Q11H7M IV 04/13/24 15:45 04/16/24 21:26 9 MLS/HR Enteral Nutritional Formula 1,000 ml 30ML/HR GT 04/15/24 08:45 04/20/24 17:01 1,000 ML Artificial Tears 1 drop Q6HP PRN EACHEYE 04/15/24 09:00 Micafungin Sodium 100 mg/Sodium Chloride 100 ml @ 100 mls/hr DAILY IV 04/18/24 10:00 04/20/24 10:50 100 MLS/HR Insulin Human Regular HOLD INSULIN FOR BL... IQ4HR SC 04/18/24 16:00 04/20/24 11:46 4 UNITS Purified Water 250 ml Q6HR GT 04/18/24 15:00 04/20/24 18:11 250 ML Hydrocortisone Sodium Succinate 50 mg DAILY IV 04/20/24 10:00 04/20/24 10:25 50 MG Norepinephrine Bitartrate 250 ml @ 1.875 mls/ hr Q24H IV 04/20/24 16:15 04/20/24 16:38 3.75 MLS/HR objective Gen.: Patient lying in bed in medical ICU. Intubated on mechanical ventilator. Head: Normocephalic, atraumatic. Eyes: PERRLA. Ears: Normal external anatomy. Throat: Endotracheal tube and orogastric tube in place. Neck: Supple, trachea midline. Chest: Transmitted breath sounds bilaterally. Decreased air entry bilaterally. No wheezing. Bibasilar crackles. Cardiovascular: Positive S1, positive S2. Regular rate and rhythm. Abdomen: Positive bowel sounds in all 4 quadrants. Soft, nontender, nondistended. : Celaya in place. Normal external genitalia. Rectal: Deferred. Skin: Warm, dry. Intact. Extremities: 2+ radial pulses bilaterally. No lower extremity edema. Neuro: Off sedation laboratory and microbiology Laboratory Tests 04/20/24 04:54 Test 04/20/24 04:54 Range/Units Serum Glucose 215 H 74-106 mg/dL Assessment/Plan Impression: Acute hypoxic respiratory failure On mechanical ventilator Shock Acute metabolic encephalopathy Aspiration pneumonia Events: Remains on vent support On AC mode; RR 20, VT 400, PEEP 5, FiO2 30% On pressors for hemodynamic support Levophed 2 mcg/min Titrate to keep mean arterial pressure greater than 65 mmHg. ABG reviewed, compensated. CXR reviewed, lungs appear relatively clear. No pneumothorax. Continue antibiotics Continue antifungal Free water d/t hypernatremia Monitor hemoglobin Monitor platelets Tube feeds for nutritional support Monitor renal function Monitor electrolytes. Supplement as necessary. Patient is not tolerating turns. Poor prognosis. SBT/ROBBI. Labs and imaging reviewed. Rest of plan as noted below. Plan: s/p intubation on mechanical ventilator. CXR image and report reviewed. Devices in place. Airspace disease worsening in the left lower lobe. No pneumothorax. No pleural effusion. On AC mode; RR 20, VT 400, PEEP 5, FiO2 30% Titrate FIO2 to keep O2 saturation above 90%. VAP bundle. Daily ABG and CXR while intubated Off sedation Continue antibiotics. F/u cultures. On pressors for hemodynamic support Titrate to keep mean arterial pressure greater than 65 mmHg. Monitor renal function Monitor electrolytes. Supplement as necessary. Monitor ins and outs. Maintain euvolemia. GI prophylaxis. DVT prophylaxis. Prognosis: Poor given patient's multiple co-morbidities. Condition: Critical Rest of plan per hospitalist and other consultants. A total of 35 minutes of critical care time was spent reviewing the patient record, examining the patient, making a diagnostic and therapeutic plan, discussing this plan with the medical personnel, following up on diagnostic studies and following the patient for clinical stability excluding any and all procedures. At least 50% of this time was spent in direct, [id number] contact. Thank you Dr. Curiel for allowing me to participate in this patient's care. Further recommendations will depend on the patient's clinical course. Please do not hesitate to contact me if you have any questions or concerns. This medical document was created using an electronic medical record system with [employer] dictation system. Although these documentations are being carefully reviewed, there may still be some phonetic and typographical changes. The errors are purely typographical, due to imperfection on the software program, and do not reflect any compromise in the patient's medical care. Dietary Evaluation Review Recommendations by RD: Protein Supplementation Comments: 1) If NPO > 7 days, consider EN/TPN to meet at least 75% of estimated daily energy needs. 2) Initiate Lucas @ 1 pk bid when medically feasible. 3) Advance diet to 60g CCHO/cardiac when medically feasible, pending PHARMACY ACCOUNT DIRECTOR approval. 4) Continue to monitor nutrition-related labs. Expected Outcomes/Goals: 1) diet to advance 2) appetite and labs to improve 3) f/u in 3-5 days Plan discussed with: Other (ENRIQUE Parker/Jerry) Critical Care Time(min): 35 CC Plasma Assessment Blood Product Administration S: 12:55 GUILLERMINA WILLSON MD Apr 20, 2024 23:48
[2024-04-21] VITALS (109 sets, daily range): BP systolic 72–140; BP diastolic 31–88; PULSE 70–106; RESP 9–28; TEMP 97–98.1; O2SAT 96–100
--- NOTE | 2024-04-21 05:37 | DVH ---
CHEST RADIOGRAPH Indication: Intubated Technique: Single frontal view of the chest was obtained Comparison: XY CHEST PORTABLE on DOS: 04/20/24, XY CHEST PORTABLE on DOS: 04/19/24, XY CHEST PORTABLE o n DOS: 04/18/24 FINDINGS: Lines and Tubes: The endotracheal tube terminates 4.4 cm above the nora. Right central venous cath eter terminates in the superior vena cava. The enteric tube overlies the proximal stomach. The side port overlies the gastroesophageal junction. Lungs: Bibasilar opacities. Pleura: No effusion. No pneumothorax. Cardiomediastinal contours: Unremarkable Bones: No acute osseous abnormality. Status post median sternotomy. IMPRESSION: 1. Side port of the enteric tube projects over the gastroesophageal junction. Advancement is recomme nded. Other lines and tubes are stable. 2. Bibasilar opacities.
[2024-04-21 07:12] LABS: Hemoglobin 8.3 g/dL (12.2-16.2)
[2024-04-21 07:13] LABS: INR 2.08 (0.9-1.15); Partial Thromboplastin Time 34.8 SEC (24.5-34.5); Prothrombin Time 20.9 sec (9.3-11.8)
[2024-04-21 07:14] LABS: Hematocrit 24.4 % (36.0-46.0); Mean Corpuscular Hemoglobin 31.5 pg (28.0-32.0); Mean Corpuscular Hgb Conc. 33.9 g/dL (32.0-36.0); Mean Corpuscular Volume 92.9 fL (80.0-100.0); Platelet Count (auto) 102 10^3/uL (140-450); Red Blood Cells 2.63 10^6/uL (4.0-5.20); Red Cell Distribution Width 17.4 % (11.8-14.3); White Blood Cell 8.6 10^3/uL (4.4-10.8)
[2024-04-21 07:20] LABS: Anion Gap 16 (5-15); Blood Urea Nitrogen 47 mg/dL (9-23); Calcium 9.9 mg/dL (8.7-10.4); Carbon Dioxide 18 mmol/L (20-31); Chloride 110 mmol/L (98-107); Glucose 176 mg/dL (74-106); Magnesium 2.2 mg/dL (1.6-2.6); Potassium 4.7 mmol/L (3.5-5.1); Sodium 144 mmol/L (136-145)
[2024-04-21 07:21] LABS: Alanine Aminotransferase 83 U/L (7-40); Phosphorus 4.6 mg/dL (2.4-5.1)
[2024-04-21 07:27] LABS: Albumin 2.5 g/dL (3.2-4.8); Aspartate Aminotransferase 224 U/L (13-40); Bilirubin, Total 14.8 mg/dL (0.2-1.0); Total Protein 4.6 g/dL (5.7-8.2)
[2024-04-21 07:33] LABS: Basophils % (manual) 0 (0.0-2.0); Blast Cells 0; Eosinophils % (manual) 0 (0-7); Metamyelocytes % 0; Myelocytes % 0; Promyelocytes % 0; Reactive Lymphocytes 0
[2024-04-21 07:38] LABS: Alkaline Phosphatase 995 U/L (46-116)
[2024-04-21 07:39] LABS: BUN/Creatinine Ratio 28.7 (10.0-20.0)
[2024-04-21 09:04] LABS: Band Neutrophils % (manual) 2; Lymphocytes % (manual) 8 (10.0-50.0); Monocytes % (manual) 2 (0-12); Platelet Estimate Decreased
[2024-04-21 09:05] LABS: Anisocytosis Slight
[2024-04-21] MEDS: SODIUM BICARB 8.4% 50Meq/50ml SYR Vial IV ONE (10:01)
--- NOTE | 2024-04-21 11:48 | DVHPN2 ---
Progress Note Date Seen: Apr 21, 2024 Medical Necessity Reason Pt with a Central, PICC or Fol: Yes The following are medically ne: Central Line, PICC Line, Celaya Catheter Reason for celaya catheter: Strict I&O Subjective Patient reports: Other Review of Systems: Deferred Objective vital signs Vital Sign Date Time Temp Pulse Resp B/P (MAP) Pulse Ox O2 Delivery O2 Flow Rate FiO2 04/21/24 11:00 97.5 101 12 98/60 (73) 100 207.5 04/21/24 10:06 30 04/21/24 08:00 Mechanical Ventilator+ Total Intake and Output 04/20/24 04/20/24 04/21/24 15:00 23:00 07:00 Intake Total 186.250 ml 58.875 ml 93.375 ml Output Total 40 ml 10 ml Balance 186.250 ml 18.875 ml 83.375 ml medications Current Medications Medications Dose Ordered Sig/Gus Route Start Time Stop Time Status Last Admin Dose Admin Al Hydrox/Mg Hydrox/Simethicone 5 ml QID MT 04/07/24 22:00 04/19/24 15:53 5 ML Diagnostic Test (Pha) 1 strip IQ4HR 04/08/24 04:00 04/21/24 08:11 1 STRIP Dextrose 50 ml UD PRN IV 04/08/24 00:15 04/13/24 10:15 50 ML Pantoprazole Sodium 40 mg DAILY IV 04/09/24 08:00 04/21/24 09:03 40 MG Meropenem 50 ml @ 17 mls/hr Q12HR IV 04/13/24 22:00 04/21/24 09:04 17 MLS/HR Vancomycin HCl 0 ml @ 0 mls/hr UD IV 04/13/24 15:15 Midazolam HCl 50 ml @ 1 mls/hr Q24H IV 04/13/24 15:45 04/13/24 16:44 1 MLS/HR Fentanyl Citrate 250 ml @ 2.5 mls/hr Q24H IV 04/13/24 15:45 04/18/24 18:09 5 MLS/HR Vasopressin 20 units/Sodium Chloride 100 ml @ 9 mls/hr Q11H7M IV 04/13/24 15:45 04/16/24 21:26 9 MLS/HR Enteral Nutritional Formula 1,000 ml 30ML/HR GT 04/15/24 08:45 04/20/24 17:01 1,000 ML Artificial Tears 1 drop Q6HP PRN EACHEYE 04/15/24 09:00 Micafungin Sodium 100 mg/Sodium Chloride 100 ml @ 100 mls/hr DAILY IV 04/18/24 10:00 04/21/24 09:04 100 MLS/HR Insulin Human Regular HOLD INSULIN FOR BL... IQ4HR SC 04/18/24 16:00 04/20/24 11:46 4 UNITS Purified Water 250 ml Q6HR GT 04/18/24 15:00 04/21/24 06:18 250 ML Norepinephrine Bitartrate 250 ml @ 1.875 mls/ hr Q24H IV 04/20/24 16:15 04/20/24 16:38 3.75 MLS/HR Examination: GENERAL:Abnormal, LUNGS:Abnormal, SKIN:Abnormal laboratory and microbiology Laboratory Tests 04/21/24 05:29 Test 04/21/24 05:29 Range/Units Serum Glucose 176 H 74-106 mg/dL Microbiology Date/Time Source Procedure Growth Status 04/17/24 23:15 Voided Urine Urine Culture - Final Presumptive Nini albicans Complete 04/17/24 19:14 Blood Blood Culture - Preliminary NO GROWTH AFTER 72 HOURS OF INCUBATION. Resulted 04/17/24 17:53 Sputum Gram Stain - Final Complete 04/17/24 17:53 Respiratory Culture - Final Presumptive Nini albicans Complete 04/08/24 21:15 Nose MRSA Screen - Final Complete Problem List/Assessment/Plan Problem List/Assessment/Plan Acute kidney injury hemodynamically mediated in the setting of shock Septic shock Urinary tract infection Sacral decubitus ulcers Hypoalbuminemia hypernatremia hypokalemia weeping edema likely due to low albumin persistent hypotension likely cause of worsening cr Maintain mean arterial pressure greater than 65 Avoid hypotension Strict Is&Os Avoid contrast studies at this time Plan discussed with: Other Dietary Evaluation Review Recommendations by RD: Protein Supplementation Comments: 1) If NPO > 7 days, consider EN/TPN to meet at least 75% of estimated daily energy needs. 2) Initiate Lucas @ 1 pk bid when medically feasible. 3) Advance diet to 60g CCHO/cardiac when medically feasible, pending AUTOMOBI[employer] BODY REPAIRER approval. 4) Continue to monitor nutrition-related labs. Expected Outcomes/Goals: 1) diet to advance 2) appetite and labs to improve 3) f/u in 3-5 days CC Plasma Assessment Blood Product Administration S: 12:55 GEOVANNA LIMA MD Apr 21, 2024 11:48
[2024-04-21 12:46] LABS: Lactic Acid w/Reflex 12.3 mmol/L (0.4-2.0)
[2024-04-21] MEDS: ALBUMIN 25% 100 ML IV SCH (13:00)
[2024-04-21] MEDS: PHYTONADIONE (VIT K)10 MG/ML 1ML VIAL SUBCUT ONE (16:49)
--- NOTE | 2024-04-21 16:55 | DVH ---
EXAM: US LIVER CLINICAL HISTORY: CHECK FOR BUDD CHIARI TECHNIQUE: Grayscale and limited color flow doppler ultrasound of the right upper quadrant is perfor med. COMPARISON: None Findings: Normal flow noted within the hepatic and portal veins. No perihepatic free fluid. No evidence of Budd Chiari.
--- NOTE | 2024-04-21 17:48 | DVHPNRES ---
Progress Note Date Seen: Apr 21, 2024 Resident Creating Document: HUONG ARAUJO RESIDENT Medical Necessity Reason Pt with a Central, PICC or Fol: Yes The following are medically ne: Central Line, PICC Line, Celaya Catheter Reason for celaya catheter: Strict I&O Subjective Review of Systems pt seen and examined at bedside Patient is currently sedated and intubated, on mechanical ventilator Review of system could not be done as patient is sedated Objective vital signs Vital Sign Date Time Temp Pulse Resp B/P (MAP) Pulse Ox O2 Delivery O2 Flow Rate FiO2 04/21/24 17:00 97.9 90 19 120/57 (78) 100 208.2 04/21/24 16:27 30 04/21/24 08:00 Mechanical Ventilator+ Total Intake and Output 04/20/24 04/20/24 04/21/24 15:00 23:00 07:00 Intake Total 186.250 ml 58.875 ml 93.375 ml Output Total 40 ml 10 ml Balance 186.250 ml 18.875 ml 83.375 ml medications Current Medications Medications Dose Ordered Sig/Gus Route Start Time Stop Time Status Last Admin Dose Admin Diagnostic Test (Pha) 1 strip IQ4HR 04/08/24 04:00 04/21/24 15:58 1 STRIP Dextrose 50 ml UD PRN IV 04/08/24 00:15 04/13/24 10:15 50 ML Pantoprazole Sodium 40 mg DAILY IV 04/09/24 08:00 04/21/24 09:03 40 MG Meropenem 50 ml @ 17 mls/hr Q12HR IV 04/13/24 22:00 04/21/24 09:04 17 MLS/HR Vancomycin HCl 0 ml @ 0 mls/hr UD IV 04/13/24 15:15 Midazolam HCl 50 ml @ 1 mls/hr Q24H IV 04/13/24 15:45 04/13/24 16:44 1 MLS/HR Fentanyl Citrate 250 ml @ 2.5 mls/hr Q24H IV 04/13/24 15:45 04/21/24 15:59 2.5 MLS/HR Vasopressin 20 units/Sodium Chloride 100 ml @ 9 mls/hr Q11H7M IV 04/13/24 15:45 04/16/24 21:26 9 MLS/HR Enteral Nutritional Formula 1,000 ml 30ML/HR GT 1/7/25 08:45 04/20/24 17:01 1,000 ML Artificial Tears 1 drop Q6HP PRN EACHEYE 04/15/24 09:00 Micafungin Sodium 100 mg/Sodium Chloride 100 ml @ 100 mls/hr DAILY IV 04/18/24 10:00 04/21/24 09:04 100 MLS/HR Insulin Human Regular HOLD INSULIN FOR BL... IQ4HR SC 04/18/24 16:00 04/20/24 11:46 4 UNITS Norepinephrine Bitartrate 250 ml @ 1.875 mls/ hr Q24H IV 04/20/24 16:15 04/21/24 16:33 9.375 MLS/HR Albumin Human 100 ml @ 100 mls/hr Q8H IV 04/21/24 12:45 04/22/24 05:44 04/21/24 13:00 100 MLS/HR Examination Examination General Appearance: Sedated and intubated, generalized anasarca Respiratory: Clear to auscultation, Normal air movement, mechanical ventilation Cardiovascular: Regular rate, Normal S1, Normal S2 Abdominal: Soft Extremities: Bilateral pedal pitting edema Skin: Left arm bruising, right arm oozing, petechiae on chest wall Neuro: Sedated laboratory and microbiology Laboratory Tests 04/21/24 05:29 Test 04/21/24 05:29 Range/Units Serum Glucose 176 H 74-106 mg/dL Microbiology Date/Time Source Procedure Growth Status 04/17/24 23:15 Voided Urine Urine Culture - Final Presumptive Nini albicans Complete 04/17/24 19:14 Blood Blood Culture - Preliminary NO GROWTH AFTER 72 HOURS OF INCUBATION. Resulted 04/17/24 17:53 Sputum Gram Stain - Final Complete 04/17/24 17:53 Respiratory Culture - Final Presumptive Nini albicans Complete 04/08/24 21:15 Nose MRSA Screen - Final Complete Labs and/or images reviewed: Labs reviewed by me, Image(s) reviewed by me Problem List/Assessment/Plan Problem List/Assessment/Plan Assessment/plan Neurology #Sedation Fentanyl #acute metabolic encephalopathy due to sepsis , ?thiamine def -head CT -thiamine IV # history of dementia ? Thiamine deficiency -thiamine replaced Cardiology #shock, septic vs cardiogenic shock -currently on norepinephrine -IV steroids,discontinued -repeat panculture #extravascular fluid overload likely oncotic albumin f/b Lasix, discontinued albumin restarted by transmission line engineer #acute on chronic heart failure with reduced ejection fraction 40% -currently on norepinephrine #CAD s/p CABG -hold antiplatelet/anticoagulation considering low platelet count # history of DVT Repeat lower extremity Doppler venous showed evidence of nonocclusive thrombus in bilateral femoral veins -hold antiplatelet/anticoagulation considering low platelet count # superficial venous phlebitis right arm Warm compresses GI #Elevated Bilirubin, direct> indirect -obstructive pattern -liver USG -liver Doppler to rule out Budd Chiari #?Acalculous cholecystitis -IR consulted for cholecystostomy # PUD prophylaxis -IV Protonix Infectious disease #Sepsis due to aspiration pneumonia/ infected wounds -IV antibiotics -repeat panculture #infected sacral ulcer -IV antibiotics -wound culture Respiratory #acute hypoxic respiratory failure 2/2 aspiration PNA -on mech vent #Aspiration pneumonia IV antibiotics, vanc, meropenam and micafungin Nephrology #MELVINA likely ATN -monitor BMP # hypokalemia Replaced #Hypomagnesemia -replace # hyponatremia -free water through NG tube, discontinued Hematology/oncology #Severe anemia -requiring blood transfusion -ordered hemolysis workup -1 unit PRBC -hematology oncology workup Haptoglobin, direct, indirect Shira test, LDH #?DIC -2 unit of FFP transfused #?HIT -4t Score of 6 -stopped Lovenox #thrombocytopenia -1 unit of PRP #Coagulopathy due to DIC -vitamin k once -monitor Nutrition started on Nepro with Carb steady DVT prophylaxis, on hold due to low platelet count SCDs Drips Norepinephrine fentanyl Lines Right subclavian CVC Code Status discussed with the family for >23min, FULL CODE Case discussion with dr rojas Spoke with granddaughter at bedside, updated about the condition of the patient Later spoke to son over the phone, updated about the condition of the patient Critical care time excluding procedures: 81 minutes Plan discussed with: Son, Other My Orders My Orders Orders - HUONG ARAUJO RESIDENT Procedure Category Date Status Time * Radiologist Consult CONS 04/21/24 Transmitted 17:27 Complete Blood Count LAB 04/22/24 Verified 04:00 Comprehensive LAB 04/22/24 Verified Metabolic Panel 04:00 Magnesium LAB 04/22/24 Verified 04:00 Chest Portable XY 04/22/24 Logged 04:00 Abg W/ Co-Ox RT 04/22/24 Logged 04:00 Ammonia LAB 04/22/24 Verified 04:00 Dietary Evaluation Review Recommendations by RD: Protein Supplementation Comments: 1) If NPO > 7 days, consider EN/TPN to meet at least 75% of estimated daily energy needs. 2) Initiate Lucas @ 1 pk bid when medically feasible. 3) Advance diet to 60g CCHO/cardiac when medically feasible, pending [employer]OCIATE [employer]CH[employer]ISE [employer]ANNER approval. 4) Continue to monitor nutrition-related labs. Expected Outcomes/Goals: 1) diet to advance 2) appetite and labs to improve 3) f/u in 3-5 days CC Plasma Assessment Blood Product Administration S: 12:55 Date of Service: Apr 21, 2024 Billing Provider: FITZ ROJAS MD Common Visit Codes: 23050-[id number] CARE 30-74 MIN, [id number] CARE-EACH +30MIN HUONG ARAUJO RESIDENT Apr 21, 2024 17:48 FITZ ROJAS MD Apr 22, 2024 13:53
[2024-04-21 21:53] LABS: Creatinine, Urine 90.13 mg/dL (30.0-125.0)
--- NOTE | 2024-04-21 23:20 | DVHPN2 ---
Progress Note - Dictate Date Seen: Apr 21, 2024 Medical Necessity Reason Pt with a Central, PICC or Fol: Yes The following are medically ne: Central Line, PICC Line, Celaya Catheter Reason for celaya catheter: Strict I&O Subjective Patient was seen and valuated in follow up in the ICU. Patient is intubated and sedated on ventilator. FiO2 30%. Patient has persistent hypotension, remains on vasopressor support. HGB 8.3, HCT 24.4, LA 12.3 > 13.3. vital signs Vital Sign Date Time Temp Pulse Resp B/P (MAP) Pulse Ox O2 Delivery O2 Flow Rate FiO2 04/21/24 23:00 98.1 89 21 130/61 (84) 100 208.6 04/21/24 22:22 30 04/21/24 20:00 Mechanical Ventilator+ 0 Total Intake and Output 04/20/24 04/20/24 04/21/24 15:00 23:00 07:00 Intake Total 186.250 ml 58.875 ml 93.375 ml Output Total 40 ml 10 ml Balance 186.250 ml 18.875 ml 83.375 ml medications Current Medications Medications Dose Ordered Sig/Gus Route Start Time Stop Time Status Last Admin Dose Admin Diagnostic Test (Pha) 1 strip IQ4HR 04/08/24 04:00 04/21/24 19:58 1 STRIP Dextrose 50 ml UD PRN IV 04/08/24 00:15 04/13/24 10:15 50 ML Pantoprazole Sodium 40 mg DAILY IV 04/09/24 08:00 04/21/24 09:03 40 MG Meropenem 50 ml @ 17 mls/hr Q12HR IV 04/13/24 22:00 04/21/24 22:17 17 MLS/HR Vancomycin HCl 0 ml @ 0 mls/hr UD IV 04/13/24 15:15 Midazolam HCl 50 ml @ 1 mls/hr Q24H IV 04/13/24 15:45 04/13/24 16:44 1 MLS/HR Fentanyl Citrate 250 ml @ 2.5 mls/hr Q24H IV 04/13/24 15:45 04/21/24 15:59 2.5 MLS/HR Vasopressin 20 units/Sodium Chloride 100 ml @ 9 mls/hr Q11H7M IV 04/13/24 15:45 04/16/24 21:26 9 MLS/HR Enteral Nutritional Formula 1,000 ml 30ML/HR GT 04/15/24 08:45 04/20/24 17:01 1,000 ML Artificial Tears 1 drop Q6HP PRN EACHEYE 04/15/24 09:00 Micafungin Sodium 100 mg/Sodium Chloride 100 ml @ 100 mls/hr DAILY IV 04/18/24 10:00 04/21/24 09:04 100 MLS/HR Insulin Human Regular HOLD INSULIN FOR BL... IQ4HR SC 04/18/24 16:00 04/20/24 11:46 4 UNITS Norepinephrine Bitartrate 250 ml @ 1.875 mls/ hr Q24H IV 04/20/24 16:15 04/21/24 16:33 9.375 MLS/HR Albumin Human 100 ml @ 100 mls/hr Q8H IV 04/21/24 12:45 04/22/24 05:44 04/21/24 20:20 100 MLS/HR objective GENERAL: Intubated on ventilator. LUNGS: Decreased breath sounds. CARDIOVASCULAR: Heart sounds are good. ABDOMEN: Soft. EXT: +1 pitting edema. laboratory and microbiology Laboratory Tests 04/21/24 05:29 Test 04/21/24 05:29 Range/Units Serum Glucose 176 H 74-106 mg/dL Problem List Questionable atrial fibrillation (takes Eliquis at home). Coronary artery disease status post triple-vessel CABG. Acute on chronic HFrEF, NYHA class III. Sepsis. Hypertension. Hyperlipidemia. CVA with right-sided deficit. Chronic kidney disease. Type 2 diabetes mellitus. Transaminitis. Anemia. Osteoporosis. Dementia. Bed-bound. Assessment/Plan Continued all current supportive medical care. IV antibiotics as ordered. GI prophylactics. Vasopressors for hemodynamic support. Additional plan as per the hospital course. Critical care time of 45 minutes provided to include time spent evaluation of patient at bedside, when appropriate patient/family education for diagnosis, treatment plan, review of pertinent medical information and discussion of care with specialty providers and PCP. Mechanical ventilator parameters, treatment and adjustments have personally been reviewed by me and treatment plan by color worker has also been reviewed. Dietary Evaluation Review Recommendations by RD: Protein Supplementation Comments: 1) If NPO > 7 days, consider EN/TPN to meet at least 75% of estimated daily energy needs. 2) Initiate Lucas @ 1 pk bid when medically feasible. 3) Advance diet to 60g CCHO/cardiac when medically feasible, pending [employer] approval. 4) Continue to monitor nutrition-related labs. Expected Outcomes/Goals: 1) diet to advance 2) appetite and labs to improve 3) f/u in 3-5 days Plan discussed with: Other CC Plasma Assessment Blood Product Administration S: 12:55 JONNA MAGANA MD Apr 21, 2024 23:20
[2024-04-22] VITALS (95 sets, daily range): BP systolic 83–145; BP diastolic 40–70; PULSE 63–105; RESP 16–24; TEMP 97.7–98.6; O2SAT 96–100
--- NOTE | 2024-04-22 04:56 | DVH ---
[facility] Single frontal view of the chest was obtained COMPARISON: XY CHEST PORTABLE on DOS: 01/16/24, CHEST PORTABLE on DOS: 05/25/21, CHEST PORTABLE on DOS: 05/23/21 FINDINGS: Lines and Tubes: Endotracheal tube and right central venous catheter in satisfactory position. Media n sternotomy. Nasogastric tube at the proximal stomach. Lungs: Patchy bilateral airspace disease. Pleura: No effusion. No pneumothorax. Cardiomediastinal contours: Unremarkable Bones: Unremarkable IMPRESSION: Recommend advancement of enteric catheter by 3 cm.
[2024-04-22 06:24] LABS: Anion Gap 19 (5-15); Magnesium 2.5 mg/dL (1.6-2.6); Potassium 4.6 mmol/L (3.5-5.1)
[2024-04-22 06:26] LABS: INR 2.53 (0.9-1.15); Partial Thromboplastin Time 47.3 SEC (24.5-34.5); Prothrombin Time 24.5 sec (9.3-11.8)
[2024-04-22 06:45] LABS: Alanine Aminotransferase 172 U/L (7-40); Albumin 3.1 g/dL (3.2-4.8); Alkaline Phosphatase 700 U/L (46-116); Aspartate Aminotransferase 828 U/L (13-40); Bilirubin, Total 17.1 mg/dL (0.2-1.0); Blood Urea Nitrogen 53 mg/dL (9-23); Calcium 10.5 mg/dL (8.7-10.4); Carbon Dioxide 17 mmol/L (20-31); Chloride 112 mmol/L (98-107); Glucose 212 mg/dL (74-106); Sodium 148 mmol/L (136-145); Total Protein 4.8 g/dL (5.7-8.2)
[2024-04-22 07:49] LABS: Base Excess -9.3 mmol/L (-2.0-3.0)
[2024-04-22 08:35] LABS: Hematocrit 19.2 % (36.0-46.0); Mean Corpuscular Hemoglobin 31.5 pg (28.0-32.0); Mean Corpuscular Hgb Conc. 32.8 g/dL (32.0-36.0); Platelet Count (auto) 89 10^3/uL (140-450); Red Cell Distribution Width 17.4 % (11.8-14.3); White Blood Cell 9.4 10^3/uL (4.4-10.8)
[2024-04-22 08:48] LABS: Hemoglobin 6.3 g/dL (12.2-16.2)
[2024-04-22 08:50] LABS: Basophils % (manual) 0 (0.0-2.0); Blast Cells 0; Eosinophils % (manual) 0 (0-7); Metamyelocytes % 0; Myelocytes % 0; Promyelocytes % 0; Reactive Lymphocytes 0
[2024-04-22] MEDS: DOCUSATE ORAL LIQUID 100 MG/10 ML UD GT SCH (09:18)
[2024-04-22] MEDS: SOD CHL 0.45% 1,000 ML IV SCH (09:20)
--- NOTE | 2024-04-22 09:27 | DVH ---
INDICATION: GALLBLADDER VOLUME TECHNIQUE: Multiple real-time sonographic images were obtained of the right upper quadrant. COMPARISON: US LIVER on DOS: 04/21/24 FINDINGS: Gallbladder wall volume measures 13 cc. Gallbladder wall appears edematous. IMPRESSION: Distended gallbladder with gallbladder wall edema.
[2024-04-22 09:45] LABS: Band Neutrophils % (manual) 9; Lymphocytes % (manual) 6 (10.0-50.0); Monocytes % (manual) 2 (0-12); Platelet Estimate Decreased
[2024-04-22] MEDS ORDERED: DOCUSATE SOD 100 MG CAP PO SCH (10:00)
--- NOTE | 2024-04-22 12:37 | DVHPN2 ---
Progress Note Date Seen: Apr 22, 2024 Medical Necessity Reason Pt with a Central, PICC or Fol: Yes The following are medically ne: Central Line, PICC Line, Celaya Catheter Reason for celaya catheter: Strict I&O Subjective Patient reports: Feels worse Review of Systems: RESPIRATORY:Abnormal Objective vital signs Vital Sign Date Time Temp Pulse Resp B/P (MAP) Pulse Ox O2 Delivery O2 Flow Rate FiO2 04/22/24 12:30 98.2 80 20 90/42 98.2 04/22/24 12:10 100 30 04/22/24 08:00 Mechanical Ventilator+ 04/21/24 20:00 0 Total Intake and Output 04/21/24 04/21/24 04/22/24 14:59 22:59 06:59 Intake Total 328.750 ml 196.250 ml 200.0 ml Output Total 20 ml 60 ml Balance 328.750 ml 176.250 ml 140.0 ml medications Current Medications Medications Dose Ordered Sig/Gus Route Start Time Stop Time Status Last Admin Dose Admin Diagnostic Test (Pha) 1 strip IQ4HR 04/08/24 04:00 04/22/24 07:44 1 STRIP Dextrose 50 ml UD PRN IV 04/08/24 00:15 04/13/24 10:15 50 ML Pantoprazole Sodium 40 mg DAILY IV 04/09/24 08:00 04/22/24 09:18 40 MG Meropenem 50 ml @ 17 mls/hr Q12HR IV 04/13/24 22:00 04/22/24 09:19 17 MLS/HR Vancomycin HCl 0 ml @ 0 mls/hr UD IV 04/13/24 15:15 Midazolam HCl 50 ml @ 1 mls/hr Q24H IV 04/13/24 15:45 04/13/24 16:44 1 MLS/HR Fentanyl Citrate 250 ml @ 2.5 mls/hr Q24H IV 04/13/24 15:45 04/21/24 15:59 2.5 MLS/HR Vasopressin 20 units/Sodium Chloride 100 ml @ 9 mls/hr Q11H7M IV 04/13/24 15:45 04/16/24 21:26 9 MLS/HR Enteral Nutritional Formula 1,000 ml 30ML/HR GT 04/15/24 08:45 04/20/24 17:01 1,000 ML Artificial Tears 1 drop Q6HP PRN EACHEYE 04/15/24 09:00 Micafungin Sodium 100 mg/Sodium Chloride 100 ml @ 100 mls/hr DAILY IV 04/18/24 10:00 04/22/24 08:21 100 MLS/HR Insulin Human Regular HOLD INSULIN FOR BL... IQ4HR SC 04/18/24 16:00 04/22/24 07:47 4 UNITS Norepinephrine Bitartrate 250 ml @ 1.875 mls/ hr Q24H IV 04/20/24 16:15 04/21/24 16:33 9.375 MLS/HR Sodium Chloride 1,000 ml @ 75 mls/hr [id number] IV 04/22/24 08:15 04/22/24 09:20 75 MLS/HR Docusate Sodium 100 mg BID GT 04/22/24 10:00 04/22/24 09:18 100 MG Examination: GENERAL:Abnormal, LUNGS:Abnormal, ABDOMEN:Abnormal, SKIN:Abnormal laboratory and microbiology Laboratory Tests 04/22/24 08:00 04/22/24 04:58 Test 04/22/24 04:58 Range/Units Serum Glucose 212 H 74-106 mg/dL Microbiology Date/Time Source Procedure Growth Status 04/17/24 23:15 Voided Urine Urine Culture - Final Presumptive Nini albicans Complete 04/17/24 19:14 Blood Blood Culture - Preliminary NO GROWTH AFTER 72 HOURS OF INCUBATION. Resulted 04/17/24 17:53 Sputum Gram Stain - Final Complete 04/17/24 17:53 Respiratory Culture - Final Presumptive Nini albicans Complete 04/08/24 21:15 Nose MRSA Screen - Final Complete Problem List/Assessment/Plan Problem List/Assessment/Plan Acute kidney injury hemodynamically mediated in the setting of shock Septic shock Urinary tract infection Sacral decubitus ulcers Hypoalbuminemia hypernatremia hypokalemia anemia jaundice presors increased today PRBC today IVF pending w/u of infectious sources Maintain mean arterial pressure greater than 65 Avoid hypotension Strict Is&Os Avoid contrast studies at this time remains critically ill Plan discussed with: Other My Orders My Orders Orders - GEOVANNA LIMA MD Procedure Category Date Status Time Sod Chl 0.45% (Sodium PHA 04/22/24 In Process Chloride 0.45% Via 08:15 Dietary Evaluation Review Recommendations by RD: Protein Supplementation Comments: 1) If NPO > 7 days, consider EN/TPN to meet at least 75% of estimated daily energy needs. 2) Initiate Lucas @ 1 pk bid when medically feasible. 3) Advance diet to 60g CCHO/cardiac when medically feasible, pending HR ANALYST approval. 4) Continue to monitor nutrition-related labs. Expected Outcomes/Goals: 1) diet to advance 2) appetite and labs to improve 3) f/u in 3-5 days Critical Care Time (mins): 33 CC Plasma Assessment Blood Product Administration S: 12:55 GEOVANNA LIMA MD Apr 22, 2024 12:37
--- NOTE | 2024-04-22 20:00 | DVHPNRES ---
Progress Note Date Seen: Apr 22, 2024 Resident Creating Document: HUONG ARAUJO RESIDENT Medical Necessity Reason Pt with a Central, PICC or Fol: Yes The following are medically ne: Central Line, PICC Line, Celaya Catheter Reason for celaya catheter: Strict I&O Subjective Review of Systems pt seen and examined at bedside Patient is currently sedated and intubated, on mechanical ventilator Review of system could not be done as patient is sedated Objective vital signs Vital Sign Date Time Temp Pulse Resp B/P (MAP) Pulse Ox O2 Delivery O2 Flow Rate FiO2 04/22/24 19:47 74 20 125/54 (77) 100 30 04/22/24 18:45 98.2 208.8 04/22/24 08:00 Mechanical Ventilator+ 04/21/24 20:00 0 Total Intake and Output 04/21/24 04/21/24 04/22/24 15:00 23:00 07:00 Intake Total 330.000 ml 216.375 ml 183.0 ml Output Total 20 ml 60 ml Balance 330.000 ml 196.375 ml 123.0 ml medications Current Medications Medications Dose Ordered Sig/Gus Route Start Time Stop Time Status Last Admin Dose Admin Diagnostic Test (Pha) 1 strip IQ4HR 04/08/24 04:00 04/22/24 16:18 1 STRIP Dextrose 50 ml UD PRN IV 04/08/24 00:15 04/13/24 10:15 50 ML Pantoprazole Sodium 40 mg DAILY IV 04/09/24 08:00 04/22/24 09:18 40 MG Vancomycin HCl 0 ml @ 0 mls/hr UD IV 04/13/24 15:15 Midazolam HCl 50 ml @ 1 mls/hr Q24H IV 04/13/24 15:45 04/13/24 16:44 1 MLS/HR Vasopressin 20 units/Sodium Chloride 100 ml @ 9 mls/hr Q11H7M IV 04/13/24 15:45 04/16/24 21:26 9 MLS/HR Enteral Nutritional Formula 1,000 ml 30ML/HR GT 04/15/24 08:45 04/20/24 17:01 1,000 ML Artificial Tears 1 drop Q6HP PRN EACHEYE 04/15/24 09:00 Insulin Human Regular HOLD INSULIN FOR BL... IQ4HR SC 04/18/24 16:00 04/22/24 07:47 4 UNITS Norepinephrine Bitartrate 250 ml @ 1.875 mls/ hr Q24H IV 04/20/24 16:15 04/21/24 16:33 9.375 MLS/HR Sodium Chloride 1,000 ml @ 75 mls/hr [id number] IV 04/22/24 08:15 04/22/24 09:20 75 MLS/HR Docusate Sodium 100 mg BID GT 04/22/24 10:00 04/22/24 09:18 100 MG Meropenem 50 ml @ 17 mls/hr Q12HR IV 04/22/24 22:00 Examination Examination General Appearance: Sedated and intubated, generalized anasarca Respiratory: Clear to auscultation, Normal air movement, mechanical ventilation Cardiovascular: Regular rate, Normal S1, Normal S2 Abdominal: Soft Extremities: Bilateral pedal pitting edema Skin: Left arm bruising, right arm oozing, petechiae on chest wall Neuro: Sedated laboratory and microbiology Laboratory Tests 04/22/24 08:00 04/22/24 04:58 Test 04/22/24 04:58 Range/Units Serum Glucose 212 H 74-106 mg/dL Microbiology Date/Time Source Procedure Growth Status 04/17/24 23:15 Voided Urine Urine Culture - Final Presumptive Nini albicans Complete 04/17/24 19:14 Blood Blood Culture - Final NO GROWTH AFTER 5 DAYS OF INCUBATION. Complete 04/17/24 17:53 Sputum Gram Stain - Final Complete 04/17/24 17:53 Respiratory Culture - Final Presumptive Nini albicans Complete 04/08/24 21:15 Nose MRSA Screen - Final Complete Labs and/or images reviewed: Labs reviewed by me, Image(s) reviewed by me Problem List/Assessment/Plan Problem List/Assessment/Plan Assessment/plan Neurology #Sedation Fentanyl #acute metabolic encephalopathy due to sepsis , ?thiamine def -head CT -thiamine IV # history of dementia ? Thiamine deficiency -thiamine replaced Cardiology #shock, septic vs cardiogenic shock -currently on norepinephrine -IV steroids,discontinued -repeat panculture #extravascular fluid overload likely oncotic albumin f/b Lasix, discontinued albumin restarted by belly packer #acute on chronic heart failure with reduced ejection fraction 40% -currently on norepinephrine #CAD s/p CABG -hold antiplatelet/anticoagulation considering low platelet count # history of DVT Repeat lower extremity Doppler venous showed evidence of nonocclusive thrombus in bilateral femoral veins -hold antiplatelet/anticoagulation considering low platelet count # superficial venous phlebitis right arm Warm compresses GI #Elevated Bilirubin, direct> indirect -obstructive pattern -liver USG -liver Doppler to rule out Budd Chiari #?Acalculous cholecystitis -IR consulted for cholecystostomy -IR considered placing tube with INR < 1.8 # PUD prophylaxis -IV Protonix Infectious disease #Sepsis due to aspiration pneumonia/ infected wounds -IV antibiotics -repeat panculture #infected sacral ulcer -IV antibiotics -wound culture Respiratory #acute hypoxic respiratory failure 2/2 aspiration PNA -on mech vent #Aspiration pneumonia IV antibiotics, vanc, meropenam and micafungin Nephrology #MELVINA likely ATN -monitor BMP # hypokalemia Replaced #Hypomagnesemia -replace # hyponatremia -free water through NG tube, discontinued Hematology/oncology #Severe anemia requiring blood transfusion -ordered hemolysis workup -1 unit PRBC replaced last hb 6.3 -hematology oncology workup Haptoglobin, direct, indirect Shira test, LDH #?DIC -2 unit of FFP transfused #?HIT -4t Score of 6 -stopped Lovenox #thrombocytopenia -1 unit of PRP #Coagulopathy due to DIC -vitamin k once IV -monitor -2 units of FFP replaced Nutrition started on Nepro with Carb steady DVT prophylaxis, on hold due to low platelet count SCDs Drips Norepinephrine fentanyl Lines Right subclavian CVC Code Status discussed with the family for >23min, FULL CODE Case discussion with dr rojas Spoke with granddaughter at bedside, updated about the condition of the patient Later spoke to son over the phone, updated about the condition of the patient Critical care time excluding procedures: 61 minutes Plan discussed with: Other My Orders My Orders Orders - HUONG ARAUJO Procedure Category Date Status Time Abg W/ Co-Ox RT 04/22/24 Logged 05:31 Docusate Sodium PHA 04/22/24 In Process Liquid (Colace Liquid) 10:00 Packedcells -Active BBK 04/22/24 In Process Bleeding 09:52 Frozen Plasma BBK 04/22/24 In Process 09:52 Type And Screen BBK 04/22/24 In Process 09:52 Frozen Plasma BBK 04/22/24 Logged 12:13 Comprehensive LAB 04/23/24 Verified Metabolic Panel 04:00 Magnesium LAB 04/23/24 Verified 04:00 Chest Portable XY 04/23/24 Transmitted 04:00 Abg W/ Co-Ox RT 04/23/24 Transmitted 04:00 PTPTT LAB 04/22/24 Transmitted 19:58 Dietary Evaluation Review Recommendations by RD: Protein Supplementation Comments: 1) If NPO > 7 days, consider EN/TPN to meet at least 75% of estimated daily energy needs. 2) Initiate Lucas @ 1 pk bid when medically feasible. 3) Advance diet to 60g CCHO/cardiac when medically feasible, pending CONSUMER LOAN MANAGER approval. 4) Continue to monitor nutrition-related labs. Expected Outcomes/Goals: 1) diet to advance 2) appetite and labs to improve 3) f/u in 3-5 days CC Plasma Assessment Blood Product Administration S: 12:55 Date of Service: Apr 22, 2024 Billing Provider: FITZ ROJAS MD Common Visit Codes: [id number] CARE 30-74 MIN HUONG ARAUJO RESIDENT Apr 22, 2024 20:00 FITZ ROJAS MD Apr 23, 2024 16:01
[2024-04-22] MEDS: phytonadione 5 MG in SODIUM CHL 0.9% 50 ML IV ONE (20:55)
--- NOTE | 2024-04-22 22:22 | DVHPN2 ---
Progress Note - Dictate Date Seen: Apr 22, 2024 Medical Necessity Reason Pt with a Central, PICC or Fol: Yes The following are medically ne: Central Line, PICC Line, Celaya Catheter Reason for celaya catheter: Strict I&O Subjective Patient was seen and valuated in follow up in the ICU. Patient is intubated and sedated on ventilator. FiO2 30%. HGB 6.3, HCT 19.2 prdered to receive PRBC transfusion. Ammonia 30, NA 148, CO2 17, BUN 53, Market Research Analyst 1.83, CA 10.5, T bili 17, AST 828, ALT 172, alk phos 700. vital signs Vital Sign Date Time Temp Pulse Resp B/P (MAP) Pulse Ox O2 Delivery O2 Flow Rate FiO2 04/22/24 22:01 98.1 74 20 119/50 (73) 100 208.6 04/22/24 21:58 30 04/22/24 08:00 Mechanical Ventilator+ 04/21/24 20:00 0 Total Intake and Output 04/21/24 04/21/24 04/22/24 15:00 23:00 07:00 Intake Total 330.000 ml 216.375 ml 183.0 ml Output Total 20 ml 60 ml Balance 330.000 ml 196.375 ml 123.0 ml medications Current Medications Medications Dose Ordered Sig/Gus Route Start Time Stop Time Status Last Admin Dose Admin Diagnostic Test (Pha) 1 strip IQ4HR 04/08/24 04:00 04/22/24 21:00 1 STRIP Dextrose 50 ml UD PRN IV 04/08/24 00:15 04/13/24 10:15 50 ML Pantoprazole Sodium 40 mg DAILY IV 04/09/24 08:00 04/22/24 09:18 40 MG Vancomycin HCl 0 ml @ 0 mls/hr UD IV 04/13/24 15:15 Midazolam HCl 50 ml @ 1 mls/hr Q24H IV 04/13/24 15:45 04/13/24 16:44 1 MLS/HR Vasopressin 20 units/Sodium Chloride 100 ml @ 9 mls/hr Q11H7M IV 04/13/24 15:45 04/16/24 21:26 9 MLS/HR Enteral Nutritional Formula 1,000 ml 30ML/HR GT 04/15/24 08:45 04/20/24 17:01 1,000 ML Artificial Tears 1 drop Q6HP PRN EACHEYE 04/15/24 09:00 Insulin Human Regular HOLD INSULIN FOR BL... IQ4HR SC 04/18/24 16:00 04/22/24 07:47 4 UNITS Norepinephrine Bitartrate 250 ml @ 1.875 mls/ hr Q24H IV 04/20/24 16:15 04/21/24 16:33 9.375 MLS/HR Sodium Chloride 1,000 ml @ 75 mls/hr [id number] IV 04/22/24 08:15 04/22/24 09:20 75 MLS/HR Docusate Sodium 100 mg BID GT 04/22/24 10:00 04/22/24 09:18 100 MG Meropenem 50 ml @ 17 mls/hr Q12HR IV 04/22/24 22:00 objective GENERAL: Intubated on ventilator. LUNGS: Decreased breath sounds. CARDIOVASCULAR: Heart sounds are good. ABDOMEN: Soft. EXT: +1 pitting edema. laboratory and microbiology Laboratory Tests 04/22/24 08:00 04/22/24 04:58 Test 04/22/24 04:58 Range/Units Serum Glucose 212 H 74-106 mg/dL Problem List Questionable atrial fibrillation (takes Eliquis at home). Coronary artery disease status post triple-vessel CABG. Acute on chronic HFrEF, NYHA class III. Sepsis. Hypertension. Hyperlipidemia. CVA with right-sided deficit. Chronic kidney disease. Type 2 diabetes mellitus. Transaminitis. Anemia. Osteoporosis. Dementia. Bed-bound. Assessment/Plan Continued all current supportive medical care. IV antibiotics as ordered. GI prophylactics. Vasopressors for hemodynamic support. Additional plan as per the hospital course. Critical care time of 45 minutes provided to include time spent evaluation of patient at bedside, when appropriate patient/family education for diagnosis, treatment plan, review of pertinent medical information and discussion of care with specialty providers and PCP. Mechanical ventilator parameters, treatment and adjustments have personally been reviewed by me and treatment plan by tool and gauge inspector has also been reviewed. Dietary Evaluation Review Recommendations by RD: Protein Supplementation Comments: 1) If NPO > 7 days, consider EN/TPN to meet at least 75% of estimated daily energy needs. 2) Initiate Lucas @ 1 pk bid when medically feasible. 3) Advance diet to 60g CCHO/cardiac when medically feasible, pending GENERATION MANAGER approval. 4) Continue to monitor nutrition-related labs. Expected Outcomes/Goals: 1) diet to advance 2) appetite and labs to improve 3) f/u in 3-5 days Plan discussed with: Other CC Plasma Assessment Blood Product Administration S: 12:55 JONNA MAGANA MD Apr 22, 2024 22:22
[2024-04-22] MEDS: MEROPENEM 500MG IVPB 50 ML IV SCH (23:56)
[2024-04-23] VITALS (97 sets, daily range): BP systolic 81–127; BP diastolic 39–70; PULSE 65–109; RESP 19–22; TEMP 97.5–98.2; O2SAT 5–100
--- NOTE | 2024-04-23 05:27 | DVH ---
CHEST RADIOGRAPH Indication: [facility] vent Technique: Single frontal view of the chest was obtained Comparison: XY CHEST PORTABLE on DOS: 04/22/24 FINDINGS: Lines and Tubes: The endotracheal tube terminates 3.3 cm above the nora. Enteric tube terminates in the stomach. Right central venous catheter terminates in the right atrium. Lungs: Bibasilar opacities similar to prior study. Pleura: No effusion. No pneumothorax. Cardiomediastinal contours: Unremarkable Bones: No acute osseous abnormality. Status post median sternotomy. IMPRESSION: 1. Bibasilar opacities similar to prior study.
[2024-04-23 08:26] LABS: Hematocrit 26.4 % (36.0-46.0); Hemoglobin 9.2 g/dL (12.2-16.2); Mean Corpuscular Hemoglobin 31.4 pg (28.0-32.0); Mean Corpuscular Hgb Conc. 34.6 g/dL (32.0-36.0); Mean Corpuscular Volume 90.7 fL (80.0-100.0); Platelet Count (auto) 72 10^3/uL (140-450); Red Blood Cells 2.91 10^6/uL (4.0-5.20); Red Cell Distribution Width 15.5 % (11.8-14.3); White Blood Cell 9.8 10^3/uL (4.4-10.8)
[2024-04-23 08:40] LABS: Anion Gap 16 (5-15); Calcium 10.3 mg/dL (8.7-10.4); Magnesium 2.1 mg/dL (1.6-2.6)
[2024-04-23 08:42] LABS: Alanine Aminotransferase 92 U/L (7-40); Albumin 2.8 g/dL (3.2-4.8); Aspartate Aminotransferase 302 U/L (13-40); Blood Urea Nitrogen 56 mg/dL (9-23); Carbon Dioxide 20 mmol/L (20-31); Chloride 111 mmol/L (98-107); Glucose 279 mg/dL (74-106); Potassium 3.4 mmol/L (3.5-5.1); Sodium 147 mmol/L (136-145); Total Protein 4.7 g/dL (5.7-8.2)
[2024-04-23 08:44] LABS: INR 1.32 (0.9-1.15); Partial Thromboplastin Time 32.2 SEC (24.5-34.5); Prothrombin Time 13.6 sec (9.3-11.8)
[2024-04-23 08:45] LABS: Basophils % (manual) 0 (0.0-2.0); Blast Cells 0; Eosinophils % (manual) 0 (0-7); Promyelocytes % 0; Reactive Lymphocytes 0
[2024-04-23] MEDS: fentaNYL Drip 2500mCg/250mlNS 250 ML IV SCH (09:19)
[2024-04-23 09:44] LABS: Alkaline Phosphatase 1015 U/L (46-116); BUN/Creatinine Ratio 29.9 (10.0-20.0)
[2024-04-23 10:28] LABS: Band Neutrophils % (manual) 9; Lymphocytes % (manual) 4 (10.0-50.0); Metamyelocytes % 2; Monocytes % (manual) 1 (0-12); Myelocytes % 1
[2024-04-23 10:29] LABS: Hypochromia Slight
[2024-04-23 10:30] LABS: Large Platelets FEW; Platelet Estimate Decreased
[2024-04-23 11:15] LABS: Base Excess -3.7 mmol/L (-2.0-3.0)
[2024-04-23] MEDS: POTASSIUM CHL 20MEQ/100ML 100 ML IV ONE (12:36)
[2024-04-23] MEDS: LIDOCAINE 2%HCL (LOCAL ANESTH.) INJ 20ML MDV ONE (13:39)
[2024-04-23] MEDS: IODIXANOL 320MG/ML 100ML BTL IV ONE (13:40)
--- NOTE | 2024-04-23 15:31 | DVH ---
US US GUIDANCE FOR NEEDLE PLACEME, HISTORY: KAELA TUBE INSERTION PROCEDURE: Informed consent was obtained. The patient was placed in supine position, and initial limi tru ultrasound evaluation of the RUQ abdomen was obtained. The skin overlying the gallbladder was pre pped with chlorhexidine which was allowed to dry and draped in the usual sterile fashion. Time out wa s performed. IV sedation and 1% lidocaine local anesthetic were administered. Using US needle biopsy guide, a 21 g Accu Stick needle was advanced into the gallbladder via a intercostal, transhepatic lee cota. Following aspiration of bile, a small amount of contrast was injected to delineate the viscous . The needle was then exchanged over mandrill wire to a non-vascular access set, through which a gustavo dewire was advanced into the gallbladder. Following serial dilation, an 8.5 [place] multipurpose pigta il catheter was placed within the gallbladder. Approximately 5 cc of fluid was withdrawn and sent to the laboratory for analysis. The drain was secured in place and attached to gravity drainage. A steri le dressing was applied. No immediate complication was identified. [id number] FLUOROSCOPY TIME: 1.8 minutes. CONTRAST USED: 10 mL . SEDATION: Dr. Parag Persaud was personally responsible for the administration of moderate sedation during the procedure performed, including the use of an independent trained observer who had no other duties during the procedure. The drugs utilized were IV (see nursing log for details). The total time of s upervision by the attending physician was approximately 40 minutes. FINDINGS: Limited US scan of the right upper abdomen demonstrates a distended gallbladder. Aspirated bile is thick and dark. Completion image demonstrates good positioning of the drainage catheter. The cystic duct is patent however no contrast going into the bowel. IMPRESSION: US/fluoro-guided percutaneous 8.5 [place] cholecystostomy tube placement via intercostal, transhepatic approach. PLAN: This tube will need to remain in place for at least 6-8 weeks before removal, so as to prevent bile leakage. If cholecystectomy is not planned, please have patient follow-up with IR at discharge t o schedule cholangiogram in 6-8 weeks. If cystic duct patency and tract maturation is established, we will consider clamp trial prior to removal of the tube in 1-2 weeks.
--- NOTE | 2024-04-23 15:31 | DVH ---
US US GUIDANCE FOR NEEDLE PLACEME, HISTORY: KAELA TUBE INSERTION PROCEDURE: Informed consent was obtained. The patient was placed in supine position, and initial limi tru ultrasound evaluation of the RUQ abdomen was obtained. The skin overlying the gallbladder was pre pped with chlorhexidine which was allowed to dry and draped in the usual sterile fashion. Time out wa s performed. IV sedation and 1% lidocaine local anesthetic were administered. Using US needle biopsy guide, a 21 g Accu Stick needle was advanced into the gallbladder via a intercostal, transhepatic lee cota. Following aspiration of bile, a small amount of contrast was injected to delineate the viscous . The needle was then exchanged over mandrill wire to a non-vascular access set, through which a gustavo dewire was advanced into the gallbladder. Following serial dilation, an 8.5 [place] multipurpose pigta il catheter was placed within the gallbladder. Approximately 5 cc of fluid was withdrawn and sent to the laboratory for analysis. The drain was secured in place and attached to gravity drainage. A steri le dressing was applied. No immediate complication was identified. [id number] FLUOROSCOPY TIME: 1.8 minutes. CONTRAST USED: 10 mL . SEDATION: Dr. Parag Persaud was personally responsible for the administration of moderate sedation during the procedure performed, including the use of an independent trained observer who had no other duties during the procedure. The drugs utilized were IV (see nursing log for details). The total time of s upervision by the attending physician was approximately 40 minutes. FINDINGS: Limited US scan of the right upper abdomen demonstrates a distended gallbladder. Aspirated bile is thick and dark. Completion image demonstrates good positioning of the drainage catheter. The cystic duct is patent however no contrast going into the bowel. IMPRESSION: US/fluoro-guided percutaneous 8.5 [place] cholecystostomy tube placement via intercostal, transhepatic approach. PLAN: This tube will need to remain in place for at least 6-8 weeks before removal, so as to prevent bile leakage. If cholecystectomy is not planned, please have patient follow-up with IR at discharge t o schedule cholangiogram in 6-8 weeks. If cystic duct patency and tract maturation is established, we will consider clamp trial prior to removal of the tube in 1-2 weeks.
--- NOTE | 2024-04-23 17:51 | DVHPN2 ---
Progress Note Date Seen: Apr 23, 2024 Medical Necessity Reason Pt with a Central, PICC or Fol: Yes The following are medically ne: Central Line, PICC Line, Celaya Catheter Reason for celaya catheter: Strict I&O Subjective Patient reports: Feels worse Review of Systems: GI:Abnormal Objective vital signs Vital Sign Date Time Temp Pulse Resp B/P (MAP) Pulse Ox O2 Delivery O2 Flow Rate FiO2 04/23/24 16:11 67 20 107/48 (67) 99 30 04/23/24 16:00 97.7 207.9 04/23/24 08:00 Mechanical Ventilator+ 04/21/24 20:00 0 Total Intake and Output 04/22/24 04/22/24 04/23/24 15:00 23:00 07:00 Intake Total 628.750 ml 1044.500 ml 1091.000 ml Output Total 25 ml 75 ml Balance 628.750 ml 1019.500 ml 1016.000 ml medications Current Medications Medications Dose Ordered Sig/Gus Route Start Time Stop Time Status Last Admin Dose Admin Diagnostic Test (Pha) 1 strip IQ4HR 04/08/24 04:00 04/23/24 12:33 1 STRIP Dextrose 50 ml UD PRN IV 04/08/24 00:15 04/13/24 10:15 50 ML Pantoprazole Sodium 40 mg DAILY IV 04/09/24 08:00 04/23/24 09:19 40 MG Vancomycin HCl 0 ml @ 0 mls/hr UD IV 04/13/24 15:15 Midazolam HCl 50 ml @ 1 mls/hr Q24H IV 04/13/24 15:45 04/13/24 16:44 1 MLS/HR Vasopressin 20 units/Sodium Chloride 100 ml @ 9 mls/hr Q11H7M IV 04/13/24 15:45 04/16/24 21:26 9 MLS/HR Enteral Nutritional Formula 1,000 ml 30ML/HR GT 04/15/24 08:45 04/20/24 17:01 1,000 ML Artificial Tears 1 drop Q6HP PRN EACHEYE 04/15/24 09:00 Insulin Human Regular HOLD INSULIN FOR BL... IQ4HR SC 04/18/24 16:00 04/23/24 09:21 6 UNITS Norepinephrine Bitartrate 250 ml @ 1.875 mls/ hr Q24H IV 04/20/24 16:15 04/23/24 01:44 5.625 MLS/HR Docusate Sodium 100 mg BID GT 04/22/24 10:00 04/23/24 09:19 100 MG Meropenem 50 ml @ 17 mls/hr Q12HR IV 04/22/24 22:00 04/23/24 09:20 17 MLS/HR Fentanyl Citrate 250 ml @ 2.5 mls/hr Q24H IV 04/22/24 23:20 04/23/24 09:19 5 MLS/HR Examination: GENERAL:Abnormal, LUNGS:Abnormal, CVS:Abnormal, ABDOMEN:Abnormal laboratory and microbiology Laboratory Tests 04/23/24 08:07 Test 04/23/24 08:07 Range/Units Serum Glucose 279 H 74-106 mg/dL Microbiology Date/Time Source Procedure Growth Status 04/17/24 23:15 Voided Urine Urine Culture - Final Presumptive Nini albicans Complete 04/17/24 19:14 Blood Blood Culture - Final NO GROWTH AFTER 5 DAYS OF INCUBATION. Complete 04/17/24 17:53 Sputum Gram Stain - Final Complete 04/17/24 17:53 Respiratory Culture - Final Presumptive Nini albicans Complete 04/08/24 21:15 Nose MRSA Screen - Final Complete Problem List/Assessment/Plan Problem List/Assessment/Plan Acute kidney injury hemodynamically mediated in the setting of shock Septic shock Urinary tract infection Sacral decubitus ulcers Hypoalbuminemia hypernatremia hypokalemia anemia jaundice pressors IVF IR placement in gallbladder tube Maintain mean arterial pressure greater than 65 Avoid hypotension Strict Is&Os Avoid contrast studies at this time remains critically ill Plan discussed with: Other Dietary Evaluation Review Recommendations by RD: Protein Supplementation Comments: 1) If NPO > 7 days, consider EN/TPN to meet at least 75% of estimated daily energy needs. 2) Initiate Lucas @ 1 pk bid when medically feasible. 3) Advance diet to 60g CCHO/cardiac when medically feasible, pending TOEING STOCKINGS approval. 4) Continue to monitor nutrition-related labs. Expected Outcomes/Goals: 1) diet to advance 2) appetite and labs to improve 3) f/u in 3-5 days CC Plasma Assessment Blood Product Administration S: 12:55 GEOVANNA LIMA MD Apr 23, 2024 17:51
--- NOTE | 2024-04-23 18:53 | DVH ---
EXAM: US RT UPPER EXT ART DUPLEX Clinical History: discoloration, edema Comparison: None Technique: Duplex Doppler evaluation of the arterial system of the right upper extremity from the including col or Doppler and spectral/pulsed waveform analysis was performed. Findings: Right upper extremity arteries: Subclavian: not visualized Axillary: 58 cm/s Proximal brachial: 50 cm/s Mid brachial: 80 cm/s Radial: 32 cm/s Ulnar: 55 cm/s Diffuse biphasic waveforms. No evidence of intimal thickening. No significant atherosclerotic plaque visualized. Impression: 1. No evidence of hemodynamically significant stenosis throughout the right upper extremity arterial system.
--- NOTE | 2024-04-23 19:17 | DVHPN2 ---
Progress Note - Dictate Date Seen: Apr 23, 2024 Medical Necessity Reason Pt with a Central, PICC or Fol: Yes The following are medically ne: Central Line, PICC Line, Celaya Catheter Reason for celaya catheter: Strict I&O Subjective Patient was seen and valuated in follow up in the ICU. Patient is intubated and sedated on ventilator. FiO2 30%. Patient is s/p PRBC transfusion. HGB 9.2, HCT 26.4, PT 13.6, INR 1.32, NA 147, K 3.4, CL 111, BUN 56, BILLING SERVICES MANAGER 1.87, AST 302, ALT 92. Gallbladder US showed distended gallbladder with gallbladder wall edema. vital signs Vital Sign Date Time Temp Pulse Resp B/P (MAP) Pulse Ox O2 Delivery O2 Flow Rate FiO2 04/23/24 12:47 68 20 102/52 (69) 100 30 04/23/24 12:15 97.9 208.2 04/23/24 08:00 Mechanical Ventilator+ 04/21/24 20:00 0 Total Intake and Output 04/22/24 04/22/24 04/23/24 15:00 23:00 07:00 Intake Total 628.750 ml 1044.500 ml 1091.000 ml Output Total 25 ml 75 ml Balance 628.750 ml 1019.500 ml 1016.000 ml medications Current Medications Medications Dose Ordered Sig/Gus Route Start Time Stop Time Status Last Admin Dose Admin Diagnostic Test (Pha) 1 strip IQ4HR 04/08/24 04:00 04/23/24 12:33 1 STRIP Dextrose 50 ml UD PRN IV 04/08/24 00:15 04/13/24 10:15 50 ML Pantoprazole Sodium 40 mg DAILY IV 04/09/24 08:00 04/23/24 09:19 40 MG Vancomycin HCl 0 ml @ 0 mls/hr UD IV 04/13/24 15:15 Midazolam HCl 50 ml @ 1 mls/hr Q24H IV 04/13/24 15:45 04/13/24 16:44 1 MLS/HR Vasopressin 20 units/Sodium Chloride 100 ml @ 9 mls/hr Q11H7M IV 04/13/24 15:45 04/16/24 21:26 9 MLS/HR Enteral Nutritional Formula 1,000 ml 30ML/HR GT 04/15/24 08:45 04/20/24 17:01 1,000 ML Artificial Tears 1 drop Q6HP PRN EACHEYE 04/15/24 09:00 Insulin Human Regular HOLD INSULIN FOR BL... IQ4HR SC 04/18/24 16:00 04/23/24 09:21 6 UNITS Norepinephrine Bitartrate 250 ml @ 1.875 mls/ hr Q24H IV 04/20/24 16:15 04/23/24 01:44 5.625 MLS/HR Sodium Chloride 1,000 ml @ 75 mls/hr [id number] IV 04/22/24 08:15 04/23/24 11:03 75 MLS/HR Docusate Sodium 100 mg BID GT 04/22/24 10:00 04/23/24 09:19 100 MG Meropenem 50 ml @ 17 mls/hr Q12HR IV 04/22/24 22:00 04/23/24 09:20 17 MLS/HR Fentanyl Citrate 250 ml @ 2.5 mls/hr Q24H IV 04/22/24 23:20 04/23/24 09:19 5 MLS/HR objective GENERAL: Intubated on ventilator. LUNGS: Decreased breath sounds. CARDIOVASCULAR: Heart sounds are good. ABDOMEN: Soft. EXT: +1 pitting edema. laboratory and microbiology Laboratory Tests 04/23/24 08:07 Test 04/23/24 08:07 Range/Units Serum Glucose 279 H 74-106 mg/dL Problem List Questionable atrial fibrillation (takes Eliquis at home). Coronary artery disease status post triple-vessel CABG. Acute on chronic HFrEF, NYHA class III. Sepsis. Hypertension. Hyperlipidemia. CVA with right-sided deficit. Chronic kidney disease. Type 2 diabetes mellitus. Transaminitis. Anemia. Osteoporosis. Dementia. Bed-bound. Assessment/Plan Continued all current supportive medical care. IV antibiotics as ordered. GI prophylactics. Vasopressors for hemodynamic support. Additional plan as per the hospital course. Critical care time of 45 minutes provided to include time spent evaluation of patient at bedside, when appropriate patient/family education for diagnosis, treatment plan, review of pertinent medical information and discussion of care with specialty providers and PCP. Mechanical ventilator parameters, treatment and adjustments have personally been reviewed by me and treatment plan by private duty aide has also been reviewed. Dietary Evaluation Review Recommendations by RD: Protein Supplementation Comments: 1) If NPO > 7 days, consider EN/TPN to meet at least 75% of estimated daily energy needs. 2) Initiate Lucas @ 1 pk bid when medically feasible. 3) Advance diet to 60g CCHO/cardiac when medically feasible, pending DATA CENTER ENGINEER approval. 4) Continue to monitor nutrition-related labs. Expected Outcomes/Goals: 1) diet to advance 2) appetite and labs to improve 3) f/u in 3-5 days Plan discussed with: Other CC Plasma Assessment Blood Product Administration S: 12:55 JONNA MAGANA MD Apr 23, 2024 14:18
--- NOTE | 2024-04-23 19:21 | DVHPNRES ---
Progress Note Date Seen: Apr 23, 2024 Resident Creating Document: HUONG ARAUJO RESIDENT Medical Necessity Reason Pt with a Central, PICC or Fol: Yes The following are medically ne: Central Line, PICC Line, Celaya Catheter Reason for celaya catheter: Strict I&O Subjective Review of Systems pt seen and examined at bedside Patient is currently sedated and intubated, on mechanical ventilator Review of system could not be done as patient is sedated underwent cholecystostomy today Objective vital signs Vital Sign Date Time Temp Pulse Resp B/P (MAP) Pulse Ox O2 Delivery O2 Flow Rate FiO2 04/23/24 18:45 98.1 75 20 121/49 (73) 99 208.6 04/23/24 18:03 30 04/23/24 08:00 Mechanical Ventilator+ 04/21/24 20:00 0 Total Intake and Output 04/22/24 04/22/24 04/23/24 15:00 23:00 07:00 Intake Total 628.750 ml 1044.500 ml 1091.000 ml Output Total 25 ml 75 ml Balance 628.750 ml 1019.500 ml 1016.000 ml medications Current Medications Medications Dose Ordered Sig/Gus Route Start Time Stop Time Status Last Admin Dose Admin Diagnostic Test (Pha) 1 strip IQ4HR 04/08/24 04:00 04/23/24 18:29 1 STRIP Dextrose 50 ml UD PRN IV 04/08/24 00:15 04/13/24 10:15 50 ML Pantoprazole Sodium 40 mg DAILY IV 04/09/24 08:00 04/23/24 09:19 40 MG Vancomycin HCl 0 ml @ 0 mls/hr UD IV 04/13/24 15:15 Midazolam HCl 50 ml @ 1 mls/hr Q24H IV 04/13/24 15:45 04/13/24 16:44 1 MLS/HR Vasopressin 20 units/Sodium Chloride 100 ml @ 9 mls/hr Q11H7M IV 04/13/24 15:45 04/16/24 21:26 9 MLS/HR Enteral Nutritional Formula 1,000 ml 30ML/HR GT 04/15/24 08:45 04/20/24 17:01 1,000 ML Artificial Tears 1 drop Q6HP PRN EACHEYE 04/15/24 09:00 Insulin Human Regular HOLD INSULIN FOR BL... IQ4HR SC 04/18/24 16:00 04/23/24 18:29 6 UNITS Norepinephrine Bitartrate 250 ml @ 1.875 mls/ hr Q24H IV 04/20/24 16:15 04/23/24 01:44 5.625 MLS/HR Docusate Sodium 100 mg BID GT 04/22/24 10:00 04/23/24 09:19 100 MG Meropenem 50 ml @ 17 mls/hr Q12HR IV 04/22/24 22:00 04/23/24 09:20 17 MLS/HR Fentanyl Citrate 250 ml @ 2.5 mls/hr Q24H IV 04/22/24 23:20 04/23/24 09:19 5 MLS/HR Examination Examination General Appearance: Sedated and intubated, generalized anasarca Respiratory: Clear to auscultation, Normal air movement, mechanical ventilation Cardiovascular: Regular rate, Normal S1, Normal S2 Abdominal: Soft Extremities: Bilateral pedal pitting edema Skin: right 1st and 2nd phalanx black-bluish discoloration, right hand swelling Left arm bruising, right arm oozing, petechiae on chest wall Neuro: Sedated laboratory and microbiology Laboratory Tests 04/23/24 08:07 Test 04/23/24 08:07 Range/Units Serum Glucose 279 H 74-106 mg/dL Microbiology Date/Time Source Procedure Growth Status 04/17/24 23:15 Voided Urine Urine Culture - Final Presumptive Nini albicans Complete 04/17/24 19:14 Blood Blood Culture - Final NO GROWTH AFTER 5 DAYS OF INCUBATION. Complete 04/17/24 17:53 Sputum Gram Stain - Final Complete 04/17/24 17:53 Respiratory Culture - Final Presumptive Nini albicans Complete 04/08/24 21:15 Nose MRSA Screen - Final Complete Labs and/or images reviewed: Labs reviewed by me, Image(s) reviewed by me Problem List/Assessment/Plan Problem List/Assessment/Plan Assessment/plan Neurology #Sedation Fentanyl #acute metabolic encephalopathy due to sepsis , ?thiamine def -head CT -thiamine IV # history of dementia ? Thiamine deficiency -thiamine replaced Cardiology #shock, septic vs cardiogenic shock -currently on norepinephrine -IV steroids,discontinued -repeat panculture #extravascular fluid overload likely oncotic albumin f/b Lasix, discontinued albumin restarted by missile pad mechanic #acute on chronic heart failure with reduced ejection fraction 40% -currently on norepinephrine #CAD s/p CABG -hold antiplatelet/anticoagulation considering low platelet count # history of DVT Repeat lower extremity Doppler venous showed evidence of nonocclusive thrombus in bilateral femoral veins -hold antiplatelet/anticoagulation considering low platelet count # superficial venous phlebitis right arm Warm compresses #Bluish black discoloration right hand , distribution of radial artery -rule out limb ischaemia -arterial duplex -nitroglycerin cream GI #Elevated Bilirubin, direct > indirect -obstructive pattern -liver USG -liver Doppler to rule out Budd Chiari #Transaminitis due to acalculous cholecystitis -monitor #?Acalculous cholecystitis -IR consulted for cholecystostomy s/p cholecystectomy 04/23/24 # PUD prophylaxis -IV Protonix Infectious disease #Sepsis due to aspiration pneumonia/ infected wounds -IV antibiotics -repeat panculture #infected sacral ulcer -IV antibiotics -wound culture Respiratory #acute hypoxic respiratory failure 2/2 aspiration PNA -on mech vent #Aspiration pneumonia IV antibiotics, vanc, meropenem Nephrology #MELVINA likely ATN -monitor BMP # hypokalemia Replaced #Hypomagnesemia -replace # hyponatremia -free water through NG tube, discontinued Hematology/oncology #Severe anemia requiring blood transfusion -ordered hemolysis workup -hematology oncology workup Haptoglobin, direct, indirect Shira test, LDH #?DIC -2 unit of FFP transfused #?HIT -4t Score of 6 -stopped Lovenox #thrombocytopenia -1 unit of PRP #Coagulopathy due to DIC -vitamin k once IV -monitor -2 units of FFP replaced Nutrition started on Nepro with Carb steady DVT prophylaxis, on hold due to low platelet count SCDs Drips Norepinephrine fentanyl Lines Right subclavian CVC Code Status discussed with the family for >23min, FULL CODE Case discussion with dr rojas Spoke with family at bedside Critical care time excluding procedures: 64 minutes Plan discussed with: Other My Orders My Orders Orders - HUONG ARAUJO RESIDENT Procedure Category Date Status Time Chest Portable XY 04/23/24 Resulted 04:00 Abg W/ Co-Ox RT 04/23/24 Logged 04:00 Rt Upper Ext Art US 04/23/24 Resulted Duplex 17:49 Communication Order ORDERS 04/23/24 Transmitted 18:56 Dietary Evaluation Review Recommendations by RD: Protein Supplementation Comments: 1) If NPO > 7 days, consider EN/TPN to meet at least 75% of estimated daily energy needs. 2) Initiate Lucas @ 1 pk bid when medically feasible. 3) Advance diet to 60g CCHO/cardiac when medically feasible, pending PLODDING MACHINE OPERATOR approval. 4) Continue to monitor nutrition-related labs. Expected Outcomes/Goals: 1) diet to advance 2) appetite and labs to improve 3) f/u in 3-5 days CC Plasma Assessment Blood Product Administration S: 12:55 Date of Service: Apr 23, 2024 Billing Provider: FITZ ROJAS MD Common Visit Codes: [id number] CARE 30-74 MIN HUONG ARAUJO RESIDENT Apr 23, 2024 19:21 FITZ ROJAS MD Apr 24, 2024 12:36
[2024-04-24] VITALS (108 sets, daily range): BP systolic 71–176; BP diastolic 39–155; PULSE 61–129; RESP 19–28; TEMP 97.9–99.3; O2SAT 90–100
[2024-04-24 05:31] LABS: Basophils # (auto) 0 10 ^3/uL (0-0.2); Basophils % (auto) 0.2 % (0.0-2.0); Eosinophils # (auto) 0 10 ^3/uL (0-0.8); Hemoglobin 9.8 g/dL (12.2-16.2); Lymphocytes # (auto) 0.6 10 ^3/uL (0.4-5.4); Lymphocytes % (auto) 6.6 % (10.0-50.0); Mean Corpuscular Hemoglobin 30.9 pg (28.0-32.0); Mean Corpuscular Hgb Conc. 33.9 g/dL (32.0-36.0); Monocytes # (auto) 0.2 10 ^3/uL (0-1.3); Monocytes % (auto) 2.1 % (0.0-12.0); Neutrophils # (auto) 8.4 10 ^3/uL (1.6-8.6); Neutrophils % (auto) 91.1 % (37.0-80.0); Platelet Count (auto) 60 10^3/uL (140-450); Red Blood Cells 3.18 10^6/uL (4.0-5.20); White Blood Cell 9.2 10^3/uL (4.4-10.8)
[2024-04-24 05:35] LABS: Potassium 3.6 mmol/L (3.5-5.1)
[2024-04-24 05:36] LABS: Anion Gap 9 (5-15); Carbon Dioxide 25 mmol/L (20-31); Nucleated Red Blood Cells % 4.8 %
[2024-04-24 05:42] LABS: Magnesium 2.1 mg/dL (1.6-2.6)
[2024-04-24 05:44] LABS: BUN/Creatinine Ratio 27.5 (10.0-20.0)
--- NOTE | 2024-04-24 05:44 | DVH ---
CHEST RADIOGRAPH Indication: mech vent Technique: Single frontal view of the chest was obtained Comparison: XY CHEST PORTABLE on DOS: 04/23/24 FINDINGS: Lines and Tubes: The endotracheal tube terminates 3.1 cm above the nora. The enteric tube terminate s in the stomach. Lungs: Bibasilar opacities are unchanged. Pleura: No effusion. No pneumothorax. Cardiomediastinal contours: Unremarkable Bones: No acute osseous abnormality. IMPRESSION: 1. No significant interval change.
[2024-04-24 05:51] LABS: Blood Urea Nitrogen 57 mg/dL (9-23); Calcium 10.8 mg/dL (8.7-10.4); Chloride 114 mmol/L (98-107); Glucose 172 mg/dL (74-106); Sodium 148 mmol/L (136-145)
[2024-04-24 09:17] LABS: Albumin 2.5 g/dL (3.2-4.8); Bilirubin, Direct 11.9 mg/dL (<0.3); Bilirubin, Total 15.6 mg/dL (0.2-1.0); Total Protein 4.5 g/dL (5.7-8.2)
[2024-04-24] MEDS: POTASSIUM EFFERVESENT TAB 25 MEQ GT ONE (10:33)
[2024-04-24 12:06] LABS: Vitamin B1, Whole Blood 132.6 nmol/L (66.5-200.0)
[2024-04-24] MEDS: FREE WATER GT SCH (12:21)
--- NOTE | 2024-04-24 13:55 | DVHPN2 ---
Progress Note Date Seen: Apr 24, 2024 Medical Necessity Reason Pt with a Central, PICC or Fol: Yes The following are medically ne: Central Line, PICC Line, Celaya Catheter Reason for celaya catheter: Strict I&O Subjective Review of Systems: GI:Abnormal Objective vital signs Vital Sign Date Time Temp Pulse Resp B/P (MAP) Pulse Ox O2 Delivery O2 Flow Rate FiO2 04/24/24 13:41 81/46 04/24/24 12:00 30 04/24/24 12:00 89 04/24/24 11:57 20 100 04/24/24 10:15 98.4 209.1 04/24/24 08:00 Mechanical Ventilator+ Total Intake and Output 04/23/24 04/23/24 04/24/24 15:00 23:00 07:00 Intake Total 435.000 ml 404.750 ml 537.500 ml Output Total 65 ml 20 ml Balance 435.000 ml 339.750 ml 517.500 ml medications Current Medications Medications Dose Ordered Sig/Gus Route Start Time Stop Time Status Last Admin Dose Admin Diagnostic Test (Pha) 1 strip IQ4HR 04/08/24 04:00 04/24/24 08:47 1 STRIP Dextrose 50 ml UD PRN IV 04/08/24 00:15 04/13/24 10:15 50 ML Pantoprazole Sodium 40 mg DAILY IV 04/09/24 08:00 04/24/24 08:48 40 MG Vancomycin HCl 0 ml @ 0 mls/hr UD IV 04/13/24 15:15 Midazolam HCl 50 ml @ 1 mls/hr Q24H IV 04/13/24 15:45 04/13/24 16:44 1 MLS/HR Enteral Nutritional Formula 1,000 ml 30ML/HR GT 04/15/24 08:45 04/20/24 17:01 1,000 ML Artificial Tears 1 drop Q6HP PRN EACHEYE 04/15/24 09:00 Insulin Human Regular HOLD INSULIN FOR BL... IQ4HR SC 04/18/24 16:00 04/24/24 01:53 4 UNITS Norepinephrine Bitartrate 250 ml @ 1.875 mls/ hr Q24H IV 04/20/24 16:15 04/23/24 01:44 5.625 MLS/HR Docusate Sodium 100 mg BID GT 04/22/24 10:00 04/24/24 08:48 100 MG Meropenem 50 ml @ 17 mls/hr Q12HR IV 04/22/24 22:00 04/24/24 08:48 17 MLS/HR Fentanyl Citrate 250 ml @ 2.5 mls/hr Q24H IV 04/22/24 23:20 04/23/24 09:19 5 MLS/HR Purified Water 100 ml Q6HR GT 04/24/24 12:00 04/24/24 12:21 100 ML Examination: GENERAL:Abnormal, LUNGS:Abnormal, ABDOMEN:Abnormal, SKIN:Abnormal laboratory and microbiology Laboratory Tests 04/24/24 04:51 Test 04/24/24 04:51 Range/Units Serum Glucose 172 H 74-106 mg/dL Microbiology Date/Time Source Procedure Growth Status 04/23/24 15:07 Gallbladder Fluid Gram Stain Pending Resulted 04/23/24 15:07 Gallbladder Fluid Body Fluid Culture - Preliminary Resulted 04/17/24 23:15 Voided Urine Urine Culture - Final Presumptive Nini albicans Complete 04/17/24 19:14 Blood Blood Culture - Final NO GROWTH AFTER 5 DAYS OF INCUBATION. Complete 04/17/24 17:53 Sputum Gram Stain - Final Complete 04/17/24 17:53 Respiratory Culture - Final Presumptive Nini albicans Complete 04/08/24 21:15 Nose MRSA Screen - Final Complete Problem List/Assessment/Plan Problem List/Assessment/Plan Acute kidney injury hemodynamically mediated in the setting of shock Septic shock Urinary tract infection Sacral decubitus ulcers Hypoalbuminemia hypernatremia hypokalemia anemia jaundice gallbladder drain edema likely 3rd spaced due to hypoalbuminemia free water replace electrolytes tube feeding IR placement in gallbladder tube Maintain mean arterial pressure greater than 65 Avoid hypotension Strict Is&Os Avoid contrast studies at this time remains critically ill Plan discussed with: Patient Dietary Evaluation Review Recommendations by RD: Protein Supplementation Comments: 1) If NPO > 7 days, consider EN/TPN to meet at least 75% of estimated daily energy needs. 2) Initiate Lucas @ 1 pk bid when medically feasible. 3) Advance diet to 60g CCHO/cardiac when medically feasible, pending FOREIGN EXCHANGE STUDENT COORDINATOR approval. 4) Continue to monitor nutrition-related labs. Expected Outcomes/Goals: 1) diet to advance 2) appetite and labs to improve 3) f/u in 3-5 days CC Plasma Assessment Blood Product Administration S: 12:55 GEOVANNA LIMA MD Apr 24, 2024 13:55
--- NOTE | 2024-04-24 19:18 | DVHPNRES ---
Progress Note Date Seen: Apr 24, 2024 Resident Creating Document: HUONG ARAUJO RESIDENT Medical Necessity Reason Pt with a Central, PICC or Fol: Yes The following are medically ne: Central Line, PICC Line, Celaya Catheter Reason for celaya catheter: Strict I&O Subjective Review of Systems pt seen and examined at bedside Patient is currently sedated and intubated, on mechanical ventilator Review of system could not be done as patient is sedated underwent cholecystostomy yesterday Objective vital signs Vital Sign Date Time Temp Pulse Resp B/P (MAP) Pulse Ox O2 Delivery O2 Flow Rate FiO2 04/24/24 18:45 98.8 108 20 124/75 (91) 100 209.8 04/24/24 18:00 30 04/24/24 08:00 Mechanical Ventilator+ Total Intake and Output 04/23/24 04/23/24 04/24/24 14:59 22:59 06:59 Intake Total 360.000 ml 477.875 ml 537.500 ml Output Total 65 ml 20 ml Balance 360.000 ml 412.875 ml 517.500 ml medications Current Medications Medications Dose Ordered Sig/Gus Route Start Time Stop Time Status Last Admin Dose Admin Diagnostic Test (Pha) 1 strip IQ4HR 04/08/24 04:00 04/24/24 17:56 1 STRIP Dextrose 50 ml UD PRN IV 04/08/24 00:15 04/13/24 10:15 50 ML Pantoprazole Sodium 40 mg DAILY IV 04/09/24 08:00 04/24/24 08:48 40 MG Vancomycin HCl 0 ml @ 0 mls/hr UD IV 04/13/24 15:15 Midazolam HCl 50 ml @ 1 mls/hr Q24H IV 04/13/24 15:45 04/13/24 16:44 1 MLS/HR Enteral Nutritional Formula 1,000 ml 30ML/HR GT 04/15/24 08:45 04/20/24 17:01 1,000 ML Artificial Tears 1 drop Q6HP PRN EACHEYE 04/15/24 09:00 Insulin Human Regular HOLD INSULIN FOR BL... IQ4HR SC 04/18/24 16:00 04/24/24 17:57 4 UNITS Norepinephrine Bitartrate 250 ml @ 1.875 mls/ hr Q24H IV 04/20/24 16:15 04/24/24 16:18 7.5 MLS/HR Docusate Sodium 100 mg BID GT 04/22/24 10:00 04/24/24 08:48 100 MG Meropenem 50 ml @ 17 mls/hr Q12HR IV 04/22/24 22:00 04/24/24 08:48 17 MLS/HR Fentanyl Citrate 250 ml @ 2.5 mls/hr Q24H IV 04/22/24 23:20 04/23/24 09:19 5 MLS/HR Purified Water 100 ml Q6HR GT 04/24/24 12:00 04/24/24 17:58 100 ML Examination Examination General Appearance: Sedated and intubated, generalized anasarca Respiratory: Clear to auscultation, Normal air movement, mechanical ventilation Cardiovascular: Regular rate, Normal S1, Normal S2 Abdominal: Soft Extremities: Bilateral pedal pitting edema Skin: right 1st and 2nd phalanx black-bluish discoloration(improving), right hand swelling Left arm bruising, right arm oozing, petechiae on chest wall Neuro: Sedated laboratory and microbiology Laboratory Tests 04/24/24 04:51 Test 04/24/24 04:51 Range/Units Serum Glucose 172 H 74-106 mg/dL Microbiology Date/Time Source Procedure Growth Status 04/23/24 15:07 Gallbladder Fluid Gram Stain - Final Resulted 04/23/24 15:07 Gallbladder Fluid Body Fluid Culture - Preliminary Resulted 04/17/24 23:15 Voided Urine Urine Culture - Final Presumptive Nini albicans Complete 04/17/24 19:14 Blood Blood Culture - Final NO GROWTH AFTER 5 DAYS OF INCUBATION. Complete 04/17/24 17:53 Sputum Gram Stain - Final Complete 04/17/24 17:53 Respiratory Culture - Final Presumptive Nini albicans Complete 04/08/24 21:15 Nose MRSA Screen - Final Complete Labs and/or images reviewed: Labs reviewed by me, Image(s) reviewed by me Problem List/Assessment/Plan Problem List/Assessment/Plan Assessment/plan Neurology #Sedation Fentanyl #acute metabolic encephalopathy due to sepsis , ?thiamine def -head CT -thiamine IV # history of dementia ? Thiamine deficiency -thiamine replaced Cardiology #shock, septic vs cardiogenic shock -currently on norepinephrine -IV steroids,discontinued -repeat panculture #extravascular fluid overload likely oncotic albumin f/b Lasix, discontinued albumin restarted by house mother, discontinued #acute on chronic heart failure with reduced ejection fraction 40% -currently on norepinephrine #CAD s/p CABG -hold antiplatelet/anticoagulation considering low platelet count # history of DVT Repeat lower extremity Doppler venous showed evidence of nonocclusive thrombus in bilateral femoral veins -hold antiplatelet/anticoagulation considering low platelet count # superficial venous phlebitis right arm Warm compresses #Bluish black discoloration right hand , distribution of radial artery -rule out limb ischaemia -arterial duplex GI #Elevated Bilirubin, direct > indirect -obstructive pattern -liver USG -liver Doppler to rule out Budd Chiari #Transaminitis due to acalculous cholecystitis -monitor #?Acalculous cholecystitis -IR consulted for cholecystostomy s/p cholecystectomy 04/23/24 # PUD prophylaxis -IV Protonix Infectious disease #Sepsis due to aspiration pneumonia/ infected wounds -IV antibiotics -repeat panculture #infected sacral ulcer -IV antibiotics -wound culture Respiratory #acute hypoxic respiratory failure 2/2 aspiration PNA -on mech vent #Aspiration pneumonia IV antibiotics, vanc, meropenem Nephrology #MELVINA likely ATN -monitor BMP # hypokalemia Replaced #Hypomagnesemia -replace # hyponatremia -free water through NG tube, discontinued Hematology/oncology #Severe anemia requiring blood transfusion -ordered hemolysis workup -hematology oncology workup Haptoglobin, direct, indirect Shira test, LDH #?DIC -2 unit of FFP transfused #?HIT -4t Score of 6 -stopped Lovenox #thrombocytopenia -1 unit of PRP #Coagulopathy due to DIC -vitamin k once IV -monitor -2 units of FFP replaced Nutrition started on Nepro with Carb steady DVT prophylaxis, on hold due to low platelet count SCDs Drips Norepinephrine fentanyl Lines Right subclavian CVC Code Status discussed with the family for >23min, FULL CODE Case discussion with dr rojas Spoke with family at bedside Critical care time excluding procedures: 61 minutes Plan discussed with: Other My Orders My Orders Orders - HUONG ARAUJO RESIDENT Procedure Category Date Status Time Chest Portable XY 04/24/24 Resulted 04:00 Venous Blood Gas RT 04/24/24 Logged 04:00 Free Water PHA 04/24/24 In Process 12:00 Dietary Evaluation Review Recommendations by RD: Protein Supplementation Comments: 1) If NPO > 7 days, consider EN/TPN to meet at least 75% of estimated daily energy needs. 2) Initiate Lucas @ 1 pk bid when medically feasible. 3) Advance diet to 60g CCHO/cardiac when medically feasible, pending LINE LEADER approval. 4) Continue to monitor nutrition-related labs. Expected Outcomes/Goals: 1) diet to advance 2) appetite and labs to improve 3) f/u in 3-5 days CC Plasma Assessment Blood Product Administration S: 12:55 Date of Service: Apr 24, 2024 Billing Provider: FITZ ROJAS MD Common Visit Codes: [id number] CARE 30-74 MIN HUONG ARAUJO Apr 24, 2024 19:18 FITZ ROJAS MD Apr 27, 2024 16:48
--- NOTE | 2024-04-24 23:22 | DVHPN2 ---
Progress Note - Dictate Date Seen: Apr 24, 2024 Medical Necessity Reason Pt with a Central, PICC or Fol: Yes The following are medically ne: Central Line, PICC Line, Celaya Catheter Reason for celaya catheter: Strict I&O Subjective Patient was seen and valuated in follow up in the ICU. Patient is intubated and sedated on ventilator. FiO2 30%. HGB 9.8, HCT 29, NA 148, CL 114, BUN 57, REPORTING SPECIALIST 2.07, AST 320, AST 82. Chest x-ray continues to shows bibasilar opacities. vital signs Vital Sign Date Time Temp Pulse Resp B/P (MAP) Pulse Ox O2 Delivery O2 Flow Rate FiO2 04/24/24 11:57 92 20 101/62 (75) 100 30 04/24/24 10:15 98.4 209.1 04/24/24 08:00 Mechanical Ventilator+ Total Intake and Output 04/23/24 04/23/24 04/24/24 14:59 22:59 06:59 Intake Total 360.000 ml 477.875 ml 537.500 ml Output Total 65 ml 20 ml Balance 360.000 ml 412.875 ml 517.500 ml medications Current Medications Medications Dose Ordered Sig/Gus Route Start Time Stop Time Status Last Admin Dose Admin Diagnostic Test (Pha) 1 strip IQ4HR 04/08/24 04:00 04/24/24 08:47 1 STRIP Dextrose 50 ml UD PRN IV 04/08/24 00:15 04/13/24 10:15 50 ML Pantoprazole Sodium 40 mg DAILY IV 04/09/24 08:00 04/24/24 08:48 40 MG Vancomycin HCl 0 ml @ 0 mls/hr UD IV 04/13/24 15:15 Midazolam HCl 50 ml @ 1 mls/hr Q24H IV 04/13/24 15:45 04/13/24 16:44 1 MLS/HR Enteral Nutritional Formula 1,000 ml 30ML/HR GT 04/15/24 08:45 04/20/24 17:01 1,000 ML Artificial Tears 1 drop Q6HP PRN EACHEYE 04/15/24 09:00 Insulin Human Regular HOLD INSULIN FOR BL... IQ4HR SC 04/18/24 16:00 04/24/24 01:53 4 UNITS Norepinephrine Bitartrate 250 ml @ 1.875 mls/ hr Q24H IV 04/20/24 16:15 04/23/24 01:44 5.625 MLS/HR Docusate Sodium 100 mg BID GT 04/22/24 10:00 04/24/24 08:48 100 MG Meropenem 50 ml @ 17 mls/hr Q12HR IV 04/22/24 22:00 04/24/24 08:48 17 MLS/HR Fentanyl Citrate 250 ml @ 2.5 mls/hr Q24H IV 04/22/24 23:20 04/23/24 09:19 5 MLS/HR Purified Water 100 ml Q6HR GT 04/24/24 12:00 04/24/24 12:21 100 ML objective GENERAL: Intubated on ventilator. LUNGS: Decreased breath sounds. CARDIOVASCULAR: Heart sounds are good. ABDOMEN: Soft. EXT: +1 pitting edema. laboratory and microbiology Laboratory Tests 04/24/24 04:51 Test 04/24/24 04:51 Range/Units Serum Glucose 172 H 74-106 mg/dL Problem List Questionable atrial fibrillation (takes Eliquis at home). Coronary artery disease status post triple-vessel CABG. Acute on chronic HFrEF, NYHA class III. Sepsis. Hypertension. Hyperlipidemia. CVA with right-sided deficit. Chronic kidney disease. Type 2 diabetes mellitus. Transaminitis. Anemia. Osteoporosis. Dementia. Bed-bound. Assessment/Plan Continued all current supportive medical care. IV antibiotics as ordered. GI prophylactics. Vasopressors for hemodynamic support. Additional plan as per the hospital course. Critical care time of 45 minutes provided to include time spent evaluation of patient at bedside, when appropriate patient/family education for diagnosis, treatment plan, review of pertinent medical information and discussion of care with specialty providers and PCP. Mechanical ventilator parameters, treatment and adjustments have personally been reviewed by me and treatment plan by bark scaler has also been reviewed. Dietary Evaluation Review Recommendations by RD: Protein Supplementation Comments: 1) If NPO > 7 days, consider EN/TPN to meet at least 75% of estimated daily energy needs. 2) Initiate Lucas @ 1 pk bid when medically feasible. 3) Advance diet to 60g CCHO/cardiac when medically feasible, pending [employer] approval. 4) Continue to monitor nutrition-related labs. Expected Outcomes/Goals: 1) diet to advance 2) appetite and labs to improve 3) f/u in 3-5 days Plan discussed with: Other CC Plasma Assessment Blood Product Administration S: 12:55 JONNA MAGANA MD Apr 24, 2024 12:34
[2024-04-25] VITALS (108 sets, daily range): BP systolic 63–180; BP diastolic 27–114; PULSE 74–100; RESP 15–22; TEMP 97.2–98.1; O2SAT 86–100
[2024-04-25 05:25] LABS: Basophils # (auto) 0 10 ^3/uL (0-0.2); Eosinophils # (auto) 0 10 ^3/uL (0-0.8); Eosinophils % (auto) 0.1 % (0.0-7.0); Lymphocytes # (auto) 0.7 10 ^3/uL (0.4-5.4); Monocytes # (auto) 0.2 10 ^3/uL (0-1.3); Monocytes % (auto) 2.1 % (0.0-12.0); Neutrophils # (auto) 8.2 10 ^3/uL (1.6-8.6); Platelet Count (auto) 44 10^3/uL (140-450)
[2024-04-25 05:27] LABS: Basophils % (auto) 0.1 % (0.0-2.0); Hematocrit 30.4 % (36.0-46.0); Hemoglobin 10.4 g/dL (12.2-16.2); Lymphocytes % (auto) 7.7 % (10.0-50.0); Mean Corpuscular Hgb Conc. 34.3 g/dL (32.0-36.0); Mean Corpuscular Volume 93.1 fL (80.0-100.0); Nucleated Red Blood Cells % 2.5 %; Red Blood Cells 3.27 10^6/uL (4.0-5.20); White Blood Cell 9.1 10^3/uL (4.4-10.8)
[2024-04-25 06:07] LABS: Anion Gap 11 (5-15); Carbon Dioxide 24 mmol/L (20-31); Potassium 4.2 mmol/L (3.5-5.1)
[2024-04-25 06:08] LABS: Magnesium 2.2 mg/dL (1.6-2.6)
--- NOTE | 2024-04-25 06:23 | DVH ---
CHEST RADIOGRAPH Indication: mech vent Technique: Single frontal view of the chest was obtained Comparison: XY CHEST PORTABLE on DOS: 04/24/24, XY CHEST PORTABLE on DOS: 04/23/24, XY CHEST PORTABLE o n DOS: 04/22/24, XY CHEST PORTABLE on DOS: 01/16/24, CHEST PORTABLE on DOS: 05/25/21, XY CHEST PORTABLE on DOS: 04/24/24 FINDINGS: Lines and Tubes: The endotracheal tube terminates 3.1 cm above the nora. The enteric tube terminate s in the stomach. Lungs: Bibasilar opacities are unchanged. Pleura: No effusion. No pneumothorax. Cardiomediastinal contours: Unremarkable Bones: No acute osseous abnormality. IMPRESSION: 1. No significant interval change.
[2024-04-25 06:29] LABS: Alanine Aminotransferase 64 U/L (7-40); Alkaline Phosphatase 1890 U/L (46-116); Aspartate Aminotransferase 262 U/L (13-40); BUN/Creatinine Ratio 30.1 (10.0-20.0); Bilirubin, Total 15.8 mg/dL (0.2-1.0); Blood Urea Nitrogen 65 mg/dL (9-23); Chloride 112 mmol/L (98-107); Glucose 165 mg/dL (74-106); Sodium 147 mmol/L (136-145)
[2024-04-25 06:58] LABS: Platelet Estimate Decreased
[2024-04-25 06:59] LABS: Anisocytosis Slight
[2024-04-25 07:07] LABS: Albumin 2.7 g/dL (3.2-4.8)
--- NOTE | 2024-04-25 14:05 | DVHPNRES ---
Progress Note Date Seen: Apr 25, 2024 Resident Creating Document: HUONG ARAUJO RESIDENT Medical Necessity Reason Pt with a Central, PICC or Fol: Yes The following are medically ne: Central Line, PICC Line, Celaya Catheter Reason for celaya catheter: Strict I&O Subjective Review of Systems pt seen and examined at bedside Patient is currently sedated and intubated, on mechanical ventilator VCAC mode, with RR 20, TV 400ml, 30%, PEEP of 5. @Norepi 3 @fent 50 Bumex drip 2 cc/hr Review of system could not be done as patient is sedated underwent cholecystostomy 2 days ago, draining around 30ml. Objective vital signs Vital Sign Date Time Temp Pulse Resp B/P (MAP) Pulse Ox O2 Delivery O2 Flow Rate FiO2 04/25/24 13:00 97.3 80 20 115/57 (76) 100 207.1 04/25/24 12:09 30 04/25/24 08:00 Mechanical Ventilator+ Total Intake and Output 04/24/24 04/24/24 04/25/24 15:00 23:00 07:00 Intake Total 83.125 ml 639.250 ml 372.425 ml Output Total 30 ml 50 ml Balance 83.125 ml 609.250 ml 322.425 ml medications Current Medications Medications Dose Ordered Sig/Gus Route Start Time Stop Time Status Last Admin Dose Admin Diagnostic Test (Pha) 1 strip IQ4HR 04/08/24 04:00 04/25/24 12:27 1 STRIP Dextrose 50 ml UD PRN IV 04/08/24 00:15 04/13/24 10:15 50 ML Pantoprazole Sodium 40 mg DAILY IV 04/09/24 08:00 04/25/24 10:59 40 MG Vancomycin HCl 0 ml @ 0 mls/hr UD IV 04/13/24 15:15 Midazolam HCl 50 ml @ 1 mls/hr Q24H IV 04/13/24 15:45 04/13/24 16:44 1 MLS/HR Enteral Nutritional Formula 1,000 ml 30ML/HR GT 04/15/24 08:45 04/20/24 17:01 1,000 ML Artificial Tears 1 drop Q6HP PRN EACHEYE 04/15/24 09:00 Insulin Human Regular HOLD INSULIN FOR BL... IQ4HR SC 04/18/24 16:00 04/24/24 20:03 4 UNITS Norepinephrine Bitartrate 250 ml @ 1.875 mls/ hr Q24H IV 04/20/24 16:15 04/24/24 16:18 7.5 MLS/HR Docusate Sodium 100 mg BID GT 04/22/24 10:00 04/25/24 10:59 100 MG Meropenem 50 ml @ 17 mls/hr Q12HR IV 04/22/24 22:00 04/25/24 10:59 17 MLS/HR Fentanyl Citrate 250 ml @ 2.5 mls/hr Q24H IV 04/22/24 23:20 04/25/24 06:12 5 MLS/HR Purified Water 100 ml Q6HR GT 04/24/24 12:00 04/25/24 12:27 100 ML Examination Examination General Appearance: Sedated and intubated, generalized anasarca Respiratory: Clear to auscultation, Normal air movement, mechanical ventilation Cardiovascular: Regular rate, Normal S1, Normal S2 Abdominal: Soft Extremities: Bilateral pedal pitting edema Skin: right 1st and 2nd phalanx black-bluish discoloration(improving), right hand swelling Left arm bruising, right arm oozing, petechiae on chest wall Neuro: Sedated laboratory and microbiology Laboratory Tests 04/25/24 04:52 Test 04/25/24 04:52 Range/Units Serum Glucose 165 H 74-106 mg/dL Microbiology Date/Time Source Procedure Growth Status 04/23/24 15:07 Gallbladder Fluid Gram Stain - Final Resulted 04/23/24 15:07 Gallbladder Fluid Body Fluid Culture - Preliminary Resulted 04/17/24 23:15 Voided Urine Urine Culture - Final Presumptive Nini albicans Complete 04/17/24 19:14 Blood Blood Culture - Final NO GROWTH AFTER 5 DAYS OF INCUBATION. Complete 04/17/24 17:53 Sputum Gram Stain - Final Complete 04/17/24 17:53 Respiratory Culture - Final Presumptive Nini albicans Complete 04/08/24 21:15 Nose MRSA Screen - Final Complete Labs and/or images reviewed: Labs reviewed by me, Image(s) reviewed by me Problem List/Assessment/Plan Problem List/Assessment/Plan Assessment/plan Neurology #Sedation Fentanyl @50 cc/hr #acute metabolic encephalopathy due to sepsis , ?thiamine def -head CT -thiamine IV # history of dementia ? Thiamine deficiency -thiamine replaced Cardiology #shock, septic vs cardiogenic shock -currently on norepinephrine @ 3cc/hr -IV steroids,discontinued -repeat panculture #extravascular fluid overload likely oncotic albumin f/b Lasix, discontinued albumin restarted by vocational aide, discontinued #acute on chronic heart failure with reduced ejection fraction 40% -currently on norepinephrine #CAD s/p CABG -hold antiplatelet/anticoagulation considering low platelet count # history of DVT Repeat lower extremity Doppler venous showed evidence of nonocclusive thrombus in bilateral femoral veins -hold antiplatelet/anticoagulation considering low platelet count # superficial venous phlebitis right arm Warm compresses #Bluish black discoloration right hand , distribution of radial artery -rule out limb ischaemia -arterial duplex GI #Elevated Bilirubin, direct > indirect -obstructive pattern -liver USG -liver Doppler to rule out Budd Chiari #Transaminitis due to acalculous cholecystitis -monitor #?Acalculous cholecystitis -IR consulted for cholecystostomy s/p cholecystectomy 04/23/24 # PUD prophylaxis -IV Protonix Infectious disease #Sepsis due to aspiration pneumonia/ infected wounds -IV antibiotics -repeat panculture #infected sacral ulcer -IV antibiotics -wound culture Respiratory #acute hypoxic respiratory failure 2/2 aspiration PNA -on mech vent #Aspiration pneumonia IV antibiotics, vanc, meropenem Nephrology #MELVINA likely ATN -monitor BMP -started on bumex drip by the vocational aide # hypokalemia Replaced #Hypomagnesemia -replace # hyponatremia -free water through NG tube, discontinued Hematology/oncology #Severe anemia requiring blood transfusion -ordered hemolysis workup -hematology oncology workup Haptoglobin, direct, indirect Shira test, LDH #?DIC -2 unit of FFP transfused #?HIT -4t Score of 6 -stopped Lovenox #thrombocytopenia -1 unit of PRP #Coagulopathy due to DIC -vitamin k once IV -monitor -2 units of FFP replaced Nutrition started on Nepro with Carb steady DVT prophylaxis, on hold due to low platelet count SCDs Drips Norepinephrine fentanyl Lines Right subclavian CVC Input/Output 1107/80ml Code Status discussed with the family for >23min, FULL CODE Case discussion with dr STAPLES Critical care time excluding procedures: 59 minutes Family mentioned they will come tomorrow at 9am at bedside Plan discussed with: Other My Orders My Orders Orders - HUONG ARAUJO RESIDENT Procedure Category Date Status Time Venous Blood Gas RT 04/25/24 Logged 04:00 Chest Portable XY 04/25/24 Resulted 04:00 Dietary Evaluation Review Recommendations by RD: Protein Supplementation Comments: 1) If NPO > 7 days, consider EN/TPN to meet at least 75% of estimated daily energy needs. 2) Initiate Lucas @ 1 pk bid when medically feasible. 3) Advance diet to 60g CCHO/cardiac when medically feasible, pending [employer] approval. 4) Continue to monitor nutrition-related labs. Expected Outcomes/Goals: 1) diet to advance 2) appetite and labs to improve 3) f/u in 3-5 days CC Plasma Assessment Blood Product Administration S: 12:55 HUONG ARAUJO RESIDENT Apr 25, 2024 14:05
[2024-04-25] MEDS: BUMETANIDE INJECTION 12.5 MG in GIVE UN-DILUTED 0 ML IV SCH (18:00)
--- NOTE | 2024-04-25 19:46 | DVHPN2 ---
Progress Note Date Seen: Apr 25, 2024 Medical Necessity Reason Pt with a Central, PICC or Fol: Yes The following are medically ne: Central Line, PICC Line, Celaya Catheter Reason for celaya catheter: Strict I&O Subjective Patient reports: Other (Patient is intubated son is bedside discussed with son) Review of Systems: Deferred Objective vital signs Vital Sign Date Time Temp Pulse Resp B/P (MAP) Pulse Ox O2 Delivery O2 Flow Rate FiO2 04/25/24 18:45 97.9 85 21 120/66 (84) 100 208.2 04/25/24 18:29 30 04/25/24 08:00 Mechanical Ventilator+ Total Intake and Output 04/24/24 04/24/24 04/25/24 15:00 23:00 07:00 Intake Total 83.125 ml 639.250 ml 383.050 ml Output Total 30 ml 50 ml Balance 83.125 ml 609.250 ml 333.050 ml medications Current Medications Medications Dose Ordered Sig/Gus Route Start Time Stop Time Status Last Admin Dose Admin Diagnostic Test (Pha) 1 strip IQ4HR 04/08/24 04:00 04/25/24 15:53 1 STRIP Dextrose 50 ml UD PRN IV 04/08/24 00:15 04/13/24 10:15 50 ML Pantoprazole Sodium 40 mg DAILY IV 04/09/24 08:00 04/25/24 10:59 40 MG Vancomycin HCl 0 ml @ 0 mls/hr UD IV 04/13/24 15:15 Midazolam HCl 50 ml @ 1 mls/hr Q24H IV 04/13/24 15:45 04/13/24 16:44 1 MLS/HR Enteral Nutritional Formula 1,000 ml 30ML/HR GT 04/15/24 08:45 04/20/24 17:01 1,000 ML Artificial Tears 1 drop Q6HP PRN EACHEYE 04/15/24 09:00 Insulin Human Regular HOLD INSULIN FOR BL... IQ4HR SC 04/18/24 16:00 04/24/24 20:03 4 UNITS Norepinephrine Bitartrate 250 ml @ 1.875 mls/ hr Q24H IV 04/20/24 16:15 04/24/24 16:18 7.5 MLS/HR Docusate Sodium 100 mg BID GT 04/22/24 10:00 04/25/24 10:59 100 MG Meropenem 50 ml @ 17 mls/hr Q12HR IV 04/22/24 22:00 04/25/24 10:59 17 MLS/HR Fentanyl Citrate 250 ml @ 2.5 mls/hr Q24H IV 04/22/24 23:20 04/25/24 06:12 5 MLS/HR Purified Water 100 ml Q6HR GT 04/24/24 12:00 04/25/24 18:27 100 ML Bumetanide 12.5 mg/Miscellaneous 50 ml @ 2 mls/hr Q24H IV 04/25/24 14:45 04/25/24 18:00 2 MLS/HR Examination: GENERAL:Abnormal, MSK:Abnormal, SKIN:Abnormal, NEURO:Abnormal laboratory and microbiology Laboratory Tests 04/25/24 04:52 Test 04/25/24 04:52 Range/Units Serum Glucose 165 H 74-106 mg/dL Microbiology Date/Time Source Procedure Growth Status 04/23/24 15:07 Gallbladder Fluid Gram Stain - Final Resulted 04/23/24 15:07 Gallbladder Fluid Body Fluid Culture - Preliminary Resulted 04/17/24 23:15 Voided Urine Urine Culture - Final Presumptive Nini albicans Complete 04/17/24 19:14 Blood Blood Culture - Final NO GROWTH AFTER 5 DAYS OF INCUBATION. Complete 04/17/24 17:53 Sputum Gram Stain - Final Complete 04/17/24 17:53 Respiratory Culture - Final Presumptive Nini albicans Complete 04/08/24 21:15 Nose MRSA Screen - Final Complete Problem List/Assessment/Plan Problem List/Assessment/Plan Acute kidney injury hemodynamically mediated in the setting of shock Septic shock Metabolic acidosis /lactic acidosis Urinary tract infection Sacral decubitus ulcers Hypoalbuminemia /transaminitis hypernatremia hypokalemia recs Bumex drip IV Patient is oligo anuric Renally dose antibiotics to GFR Plan discussed with: Son, Other My Orders My Orders Orders - MONTRELL FUCHS MD Procedure Category Date Status Time Give Un-Diluted PHA 04/25/24 In Process (Gi... W/Bumetanide 14:45 Dietary Evaluation Review Recommendations by RD: Protein Supplementation Comments: 1) If NPO > 7 days, consider EN/TPN to meet at least 75% of estimated daily energy needs. 2) Initiate Lucas @ 1 pk bid when medically feasible. 3) Advance diet to 60g CCHO/cardiac when medically feasible, pending [employer] approval. 4) Continue to monitor nutrition-related labs. Expected Outcomes/Goals: 1) diet to advance 2) appetite and labs to improve 3) f/u in 3-5 days CC Plasma Assessment Blood Product Administration S: 12:55 MONTRELL FUCHS MD Apr 25, 2024 19:46
--- NOTE | 2024-04-25 21:53 | DVHPN2 ---
Progress Note - Dictate Date Seen: Apr 25, 2024 Medical Necessity Reason Pt with a Central, PICC or Fol: Yes The following are medically ne: Central Line, PICC Line, Celaya Catheter Reason for celaya catheter: Strict I&O Subjective Patient was seen and valuated in follow up in the ICU. Patient is intubated and sedated on ventilator. FiO2 30%. NA 147, CL 112, BUN 65, HAND UMBRELLA TIPPER 2.16, AST 262, ALT 64. Chest x-ray shows similar appearance. vital signs Vital Sign Date Time Temp Pulse Resp B/P (MAP) Pulse Ox O2 Delivery O2 Flow Rate FiO2 04/25/24 11:00 106/59 04/25/24 10:33 88 20 94 30 04/25/24 09:30 97.7 207.9 04/24/24 20:00 Mechanical Ventilator+ Total Intake and Output 04/24/24 04/24/24 04/25/24 14:59 22:59 06:59 Intake Total 83.125 ml 643.150 ml 381.025 ml Output Total 30 ml 50 ml Balance 83.125 ml 613.150 ml 331.025 ml medications Current Medications Medications Dose Ordered Sig/Gus Route Start Time Stop Time Status Last Admin Dose Admin Diagnostic Test (Pha) 1 strip IQ4HR 04/08/24 04:00 04/25/24 08:00 1 STRIP Dextrose 50 ml UD PRN IV 04/08/24 00:15 04/13/24 10:15 50 ML Pantoprazole Sodium 40 mg DAILY IV 04/09/24 08:00 04/25/24 10:59 40 MG Vancomycin HCl 0 ml @ 0 mls/hr UD IV 04/13/24 15:15 Midazolam HCl 50 ml @ 1 mls/hr Q24H IV 04/13/24 15:45 04/13/24 16:44 1 MLS/HR Enteral Nutritional Formula 1,000 ml 30ML/HR GT 04/15/24 08:45 04/20/24 17:01 1,000 ML Artificial Tears 1 drop Q6HP PRN EACHEYE 04/15/24 09:00 Insulin Human Regular HOLD INSULIN FOR BL... IQ4HR SC 04/18/24 16:00 04/24/24 20:03 4 UNITS Norepinephrine Bitartrate 250 ml @ 1.875 mls/ hr Q24H IV 04/20/24 16:15 04/24/24 16:18 7.5 MLS/HR Docusate Sodium 100 mg BID GT 04/22/24 10:00 04/25/24 10:59 100 MG Meropenem 50 ml @ 17 mls/hr Q12HR IV 04/22/24 22:00 04/25/24 10:59 17 MLS/HR Fentanyl Citrate 250 ml @ 2.5 mls/hr Q24H IV 04/22/24 23:20 04/25/24 06:12 5 MLS/HR Purified Water 100 ml Q6HR GT 04/24/24 12:00 04/25/24 05:56 100 ML objective GENERAL: Intubated on ventilator. LUNGS: Decreased breath sounds. CARDIOVASCULAR: Heart sounds are good. ABDOMEN: Soft. EXT: +1 pitting edema. laboratory and microbiology Laboratory Tests 04/25/24 04:52 Test 04/25/24 04:52 Range/Units Serum Glucose 165 H 74-106 mg/dL Problem List Questionable atrial fibrillation (takes Eliquis at home). Coronary artery disease status post triple-vessel CABG. Acute on chronic HFrEF, NYHA class III. Sepsis. Hypertension. Hyperlipidemia. CVA with right-sided deficit. Chronic kidney disease. Type 2 diabetes mellitus. Transaminitis. Anemia. Osteoporosis. Dementia. Bed-bound. Assessment/Plan Continued all current supportive medical care. IV antibiotics as ordered. GI prophylactics. Vasopressors for hemodynamic support. Additional plan as per the hospital course. Critical care time of 45 minutes provided to include time spent evaluation of patient at bedside, when appropriate patient/family education for diagnosis, treatment plan, review of pertinent medical information and discussion of care with specialty providers and PCP. Mechanical ventilator parameters, treatment and adjustments have personally been reviewed by me and treatment plan by contract officer has also been reviewed. Dietary Evaluation Review Recommendations by RD: Protein Supplementation Comments: 1) If NPO > 7 days, consider EN/TPN to meet at least 75% of estimated daily energy needs. 2) Initiate Lucas @ 1 pk bid when medically feasible. 3) Advance diet to 60g CCHO/cardiac when medically feasible, pending [employer] approval. 4) Continue to monitor nutrition-related labs. Expected Outcomes/Goals: 1) diet to advance 2) appetite and labs to improve 3) f/u in 3-5 days Plan discussed with: Other CC Plasma Assessment Blood Product Administration S: 12:55 JONNA MAGANA MD Apr 25, 2024 11:54
[2024-04-26] VITALS (106 sets, daily range): BP systolic 73–180; BP diastolic 44–168; PULSE 73–103; RESP 19–24; TEMP 97–97.9; O2SAT 94–100
[2024-04-26 04:44] LABS: Anion Gap 14 (5-15); Magnesium 2.4 mg/dL (1.6-2.6); Potassium 4.3 mmol/L (3.5-5.1)
[2024-04-26 04:45] LABS: Alanine Aminotransferase 59 U/L (7-40); Aspartate Aminotransferase 228 U/L (13-40); Bilirubin, Total 14.9 mg/dL (0.2-1.0); Blood Urea Nitrogen 67 mg/dL (9-23); Carbon Dioxide 20 mmol/L (20-31); Chloride 112 mmol/L (98-107); Glucose 229 mg/dL (74-106); Sodium 146 mmol/L (136-145)
[2024-04-26 04:46] LABS: Albumin 2.5 g/dL (3.2-4.8); Total Protein 4.8 g/dL (5.7-8.2)
[2024-04-26 04:53] LABS: Hemoglobin 10.1 g/dL (12.2-16.2)
[2024-04-26 04:54] LABS: BUN/Creatinine Ratio 30.9 (10.0-20.0)
[2024-04-26 04:55] LABS: Alkaline Phosphatase 1946 U/L (46-116)
[2024-04-26 04:57] LABS: Hematocrit 30.1 % (36.0-46.0); Mean Corpuscular Hemoglobin 31.6 pg (28.0-32.0); Mean Corpuscular Hgb Conc. 33.6 g/dL (32.0-36.0); Mean Corpuscular Volume 93.8 fL (80.0-100.0); Platelet Count (auto) 39 10^3/uL (140-450); Red Blood Cells 3.21 10^6/uL (4.0-5.20); Red Cell Distribution Width 16.1 % (11.8-14.3); White Blood Cell 5.9 10^3/uL (4.4-10.8)
[2024-04-26 05:28] LABS: Band Neutrophils % (manual) 0; Basophils % (manual) 0 (0.0-2.0); Blast Cells 0; Eosinophils % (manual) 0 (0-7); Metamyelocytes % 0; Myelocytes % 0; Promyelocytes % 0; Reactive Lymphocytes 0
--- NOTE | 2024-04-26 05:46 | DVH ---
CHEST RADIOGRAPH Indication: mechanical vent Technique: Single frontal view of the chest was obtained Comparison: XY CHEST PORTABLE on DOS: 04/25/24, XY CHEST PORTABLE on DOS: 04/24/24, XY CHEST PORTABLE o n DOS: 04/23/24 IMPRESSION: Endotracheal tube tip approximately 2 cm from the nora. Enteric tube tip within the stomach. Mild pulmonary vascular congestion. Patchy airspace opacity in the left lung base with trace left pleural effusion. Catheter in the right upper abdominal quadrant.
[2024-04-26 07:40] LABS: Base Excess -5.4 mmol/L (-2.0-3.0)
[2024-04-26 07:49] LABS: Lymphocytes % (manual) 7 (10.0-50.0); Monocytes % (manual) 3 (0-12)
[2024-04-26 07:51] LABS: Large Platelets FEW; Platelet Estimate Decrea
--- NOTE | 2024-04-26 11:11 | MEDREC ---
[facility] Intervention Section I [facility] Intervention: Review courses of therapy (PATIENT HAS BEEN ON VANCOMYCIN AND MEROPENEM FOR 14 DAYS (04/23 - ). THE PRELIMINARY BODY FLUID CULTURE SHOWS NO GROWTH. TEMPERATURE AND WBC ARE WNL. PLEASE REVIEWING THE ANTIBIOTIC NEEDS FOR PATIENT) JOSE GOULD Apr 26, 2024 11:11
--- NOTE | 2024-04-26 12:32 | DVHPN2 ---
Objective Vitals Vital Signs Date Time Temp Pulse Resp B/P (MAP) Pulse Ox O2 Delivery O2 Flow Rate FiO2 04/26/24 12:00 30 04/26/24 12:00 97.3 82 20 89/53 (65) 100 207.1 04/26/24 08:00 Mechanical Ventilator+ Intake/Output Intake and Output 04/26/24 07:00 Intake Total 904.750 ml Output Total 80 ml Balance 824.750 ml Intake Oral 430 ml IV Total 384.750 ml Tube Feeding 90 ml Output Urine Total 80 ml # Bowel Movements 2 Medications Current Medications Medications Dose Ordered Sig/Gus Route Start Time Stop Time Status Last Admin Dose Admin Diagnostic Test (Pha) 1 strip IQ4HR 04/08/24 04:00 04/26/24 11:43 1 STRIP Dextrose 50 ml UD PRN IV 04/08/24 00:15 04/13/24 10:15 50 ML Pantoprazole Sodium 40 mg DAILY IV 04/09/24 08:00 04/26/24 08:54 40 MG Vancomycin HCl 0 ml @ 0 mls/hr UD IV 04/13/24 15:15 Midazolam HCl 50 ml @ 1 mls/hr Q24H IV 04/13/24 15:45 04/13/24 16:44 1 MLS/HR Enteral Nutritional Formula 1,000 ml 30ML/HR GT 04/15/24 08:45 04/20/24 17:01 1,000 ML Artificial Tears 1 drop Q6HP PRN EACHEYE 04/15/24 09:00 Insulin Human Regular HOLD INSULIN FOR BL... IQ4HR SC 04/18/24 16:00 04/26/24 08:07 4 UNITS Norepinephrine Bitartrate 250 ml @ 1.875 mls/ hr Q24H IV 04/20/24 16:15 04/26/24 09:38 3.75 MLS/HR Docusate Sodium 100 mg BID GT 04/22/24 10:00 04/26/24 08:54 100 MG Meropenem 50 ml @ 17 mls/hr Q12HR IV 04/22/24 22:00 04/26/24 08:54 17 MLS/HR Fentanyl Citrate 250 ml @ 2.5 mls/hr Q24H IV 04/22/24 23:20 04/25/24 06:12 5 MLS/HR Purified Water 100 ml Q6HR GT 04/24/24 12:00 04/26/24 11:00 100 ML Bumetanide 12.5 mg/Miscellaneous 50 ml @ 2 mls/hr Q24H IV 04/25/24 14:45 04/26/24 08:06 2 MLS/HR Laboratory Results Laboratory Tests 04/26/24 03:39 Chemistry Test 04/26/24 03:39 Albumin 2.5 g/dL (3.2-4.8) L Calcium Level 11.0 mg/dL (8.7-10.4) H Magnesium Level 2.4 mg/dL (1.6-2.6) Total Protein 4.8 g/dL (5.7-8.2) L LFT Test 04/26/24 03:39 Alanine Aminotransferase (ALT) 59 U/L (7-40) H Alkaline Phosphatase 1946 U/L (46-116) H Aspartate Amino Transferase (AST) 228 U/L (13-40) H Total Bilirubin 14.9 mg/dL (0.2-1.0) H Urinalysis Test 04/07/24 21:30 04/10/24 10:21 04/17/24 23:15 04/21/24 18:28 Urine WBC Clumps Present /hpf (None Seen) Urine Osmolality 345 mOsm/kg Urine Protein/Creatinine Ratio 2.06 Urine Potassium 41 mmol/L (12-62) Urine Total Protein 100.4 mg/dL (1-14) H Urine Color Dark-yellow (Yellow) Urine Clarity Turbid (Clear) H Urine pH 5.5 (5.0-9.0) Urine Specific [place] 1.022 (1.001-1.035) Urine Protein 2+ (Negative) H Urine Ketones Trace (Negative) Urine Blood 2+ /uL (Negative) H Urine Nitrite Negative (Negative) Urine Bilirubin 1+ (Negative) H Urine Urobilinogen 2 mg/dL (Negative) H Urine Leukocyte Esterase Trace /uL (Negative) Urine RBC 1 /hpf (0 - 4) Urine WBC 7 /hpf (0 - 5) Urine Squamous Epithelial Cells None seen /hpf (<5) Urine Bacteria None seen /hpf (None Seen) Urine Mucus Few (None Seen) Urine Yeast (Budding) Loaded /hpf (None Seen) Urine Glucose Normal mg/dL (Normal) Urine Creatinine 90.13 mg/dL (30.0-125.0) Urine Sodium 13 mmol/L (40-220) L Blood Gas Results Test 04/26/24 07:21 Arterial Blood pH 7.460 (7.350-7.450) FiO2 % 30.0 Microbiology Microbiology Date/Time Source Procedure Growth Status 04/23/24 15:07 Gallbladder Fluid Gram Stain - Final Resulted 04/23/24 15:07 Gallbladder Fluid Body Fluid Culture - Preliminary Resulted 04/17/24 23:15 Voided Urine Urine Culture - Final Presumptive Nini albicans Complete 04/17/24 19:14 Blood Blood Culture - Final NO GROWTH AFTER 5 DAYS OF INCUBATION. Complete 04/17/24 17:53 Sputum Gram Stain - Final Complete 04/17/24 17:53 Respiratory Culture - Final Presumptive Nini albicans Complete 04/08/24 21:15 Nose MRSA Screen - Final Complete Assessment/Plan Assessment/Plan #Sedation Fentanyl @50 cc/hr #acute metabolic encephalopathy due to sepsis , ?thiamine def -head CT -thiamine IV # history of dementia ? Thiamine deficiency -thiamine replaced Cardiology #shock, septic vs cardiogenic shock -currently on norepinephrine @ 3cc/hr -IV steroids,discontinued -repeat panculture #extravascular fluid overload likely oncotic albumin f/b Lasix, discontinued albumin restarted by exhibits manager, discontinued #acute on chronic heart failure with reduced ejection fraction 40% -currently on norepinephrine #CAD s/p CABG -hold antiplatelet/anticoagulation considering low platelet count # history of DVT Repeat lower extremity Doppler venous showed evidence of nonocclusive thrombus in bilateral femoral veins -hold antiplatelet/anticoagulation considering low platelet count # superficial venous phlebitis right arm Warm compresses #Bluish black discoloration right hand , distribution of radial artery -rule out limb ischaemia -arterial duplex GI #Elevated Bilirubin, direct > indirect -obstructive pattern -liver USG -liver Doppler to rule out Budd Chiari #Transaminitis due to acalculous cholecystitis -monitor #?Acalculous cholecystitis -IR consulted for cholecystostomy s/p cholecystectomy 04/23/24 # PUD prophylaxis -IV Protonix Infectious disease #Sepsis due to aspiration pneumonia/ infected wounds -IV antibiotics -repeat panculture #infected sacral ulcer -IV antibiotics -wound culture Respiratory #acute hypoxic respiratory failure 2/2 aspiration PNA -on mech vent #Aspiration pneumonia IV antibiotics, vanc, meropenem Nephrology #MELVINA likely ATN -monitor BMP -started on bumex drip by the exhibits manager # hypokalemia Replaced #Hypomagnesemia -replace # hyponatremia -free water through NG tube, discontinued Hematology/oncology #Severe anemia requiring blood transfusion -ordered hemolysis workup -hematology oncology workup Haptoglobin, direct, indirect Shira test, LDH #?DIC -2 unit of FFP transfused #?HIT -4t Score of 6 -stopped Lovenox #thrombocytopenia -1 unit of PRP #Coagulopathy due to DIC -vitamin k once IV -monitor -2 units of FFP replaced Nutrition started on Nepro with Carb steady DVT prophylaxis, on hold due to low platelet count SCDs Drips Norepinephrine fentanyl Lines Right subclavian CVC Input/Output 1107/80ml Code Status discussed with the family for >23min, FULL CODE Date of Service: Apr 26, 2024 TIA WILKINS DO Apr 26, 2024 12:32
--- NOTE | 2024-04-26 15:18 | DVHPN2 ---
Progress Note - Dictate Date Seen: Apr 26, 2024 Medical Necessity Reason Pt with a Central, PICC or Fol: Yes The following are medically ne: Central Line, PICC Line, Celaya Catheter Reason for celaya catheter: Strict I&O Subjective Patient was seen and valuated in follow up in the ICU. Patient is intubated and sedated on ventilator. FiO2 30%. Patient had 10 PVCs on the director cardiac. NA 146, CL 112, BUN 67, INSTRUCTIONAL DESIGN SPECIALIST 2.17, GLUC 229, AST 228, ALT 59. Chest x-ray shows mild pulmonary vascular congestion and patchy airspace opacity in the left lung base with trace left pleural effusion. vital signs Vital Sign Date Time Temp Pulse Resp B/P (MAP) Pulse Ox O2 Delivery O2 Flow Rate FiO2 04/26/24 12:00 97.3 82 20 89/53 (65) 100 207.1 04/26/24 11:39 30 04/26/24 08:00 Mechanical Ventilator+ Total Intake and Output 04/25/24 04/25/24 04/26/24 15:00 23:00 07:00 Intake Total 128.500 ml 426.25 ml 350.00 ml Output Total 50 ml 30 ml Balance 128.500 ml 376.25 ml 320.00 ml medications Current Medications Medications Dose Ordered Sig/Gus Route Start Time Stop Time Status Last Admin Dose Admin Diagnostic Test (Pha) 1 strip IQ4HR 04/08/24 04:00 04/26/24 11:43 1 STRIP Dextrose 50 ml UD PRN IV 04/08/24 00:15 04/13/24 10:15 50 ML Pantoprazole Sodium 40 mg DAILY IV 04/09/24 08:00 04/26/24 08:54 40 MG Vancomycin HCl 0 ml @ 0 mls/hr UD IV 04/13/24 15:15 Midazolam HCl 50 ml @ 1 mls/hr Q24H IV 04/13/24 15:45 04/13/24 16:44 1 MLS/HR Enteral Nutritional Formula 1,000 ml 30ML/HR GT 04/15/24 08:45 04/20/24 17:01 1,000 ML Artificial Tears 1 drop Q6HP PRN EACHEYE 04/15/24 09:00 Insulin Human Regular HOLD INSULIN FOR BL... IQ4HR SC 04/18/24 16:00 04/26/24 08:07 4 UNITS Norepinephrine Bitartrate 250 ml @ 1.875 mls/ hr Q24H IV 04/20/24 16:15 04/26/24 09:38 3.75 MLS/HR Docusate Sodium 100 mg BID GT 04/22/24 10:00 04/26/24 08:54 100 MG Meropenem 50 ml @ 17 mls/hr Q12HR IV 04/22/24 22:00 04/26/24 08:54 17 MLS/HR Fentanyl Citrate 250 ml @ 2.5 mls/hr Q24H IV 04/22/24 23:20 04/25/24 06:12 5 MLS/HR Purified Water 100 ml Q6HR GT 04/24/24 12:00 04/26/24 11:00 100 ML Bumetanide 12.5 mg/Miscellaneous 50 ml @ 2 mls/hr Q24H IV 04/25/24 14:45 04/26/24 08:06 2 MLS/HR objective GENERAL: Intubated on ventilator. LUNGS: Decreased breath sounds. CARDIOVASCULAR: Heart sounds are good. ABDOMEN: Soft. EXT: +1 pitting edema. laboratory and microbiology Laboratory Tests 04/26/24 03:39 Test 04/26/24 03:39 Range/Units Serum Glucose 229 H 74-106 mg/dL Problem List Questionable atrial fibrillation (takes Eliquis at home). Coronary artery disease status post triple-vessel CABG. Acute on chronic HFrEF, NYHA class III. Sepsis. Hypertension. Hyperlipidemia. CVA with right-sided deficit. Chronic kidney disease. Type 2 diabetes mellitus. Transaminitis. Anemia. Osteoporosis. Dementia. Bed-bound. Assessment/Plan Continued all current supportive medical care. IV antibiotics as ordered. GI prophylactics. Vasopressors for hemodynamic support. Additional plan as per the hospital course. Critical care time of 45 minutes provided to include time spent evaluation of patient at bedside, when appropriate patient/family education for diagnosis, treatment plan, review of pertinent medical information and discussion of care with specialty providers and PCP. Mechanical ventilator parameters, treatment and adjustments have personally been reviewed by me and treatment plan by band salvager has also been reviewed. Dietary Evaluation Review Recommendations by RD: Protein Supplementation Comments: 1) If NPO > 7 days, consider EN/TPN to meet at least 75% of estimated daily energy needs. 2) Initiate Lucas @ 1 pk bid when medically feasible. 3) Advance diet to 60g CCHO/cardiac when medically feasible, pending [employer] approval. 4) Continue to monitor nutrition-related labs. Expected Outcomes/Goals: 1) diet to advance 2) appetite and labs to improve 3) f/u in 3-5 days Plan discussed with: Other CC Plasma Assessment Blood Product Administration S: 12:55 JONNA MAGANA MD Apr 26, 2024 12:14
--- NOTE | 2024-04-26 16:57 | DVHPN2 ---
Progress Note Date Seen: Apr 26, 2024 Medical Necessity Reason Pt with a Central, PICC or Fol: Yes The following are medically ne: Central Line, PICC Line, Celaya Catheter Reason for celaya catheter: Strict I&O Subjective Patient reports: Other (son bedside) Review of Systems: Deferred Objective vital signs Vital Sign Date Time Temp Pulse Resp B/P (MAP) Pulse Ox O2 Delivery O2 Flow Rate FiO2 04/26/24 16:00 97.3 87 19 104/59 (74) 100 207.1 04/26/24 15:59 30 04/26/24 08:00 Mechanical Ventilator+ Total Intake and Output 04/25/24 04/25/24 04/26/24 15:00 23:00 07:00 Intake Total 128.500 ml 426.25 ml 350.00 ml Output Total 50 ml 30 ml Balance 128.500 ml 376.25 ml 320.00 ml medications Current Medications Medications Dose Ordered Sig/Gus Route Start Time Stop Time Status Last Admin Dose Admin Diagnostic Test (Pha) 1 strip IQ4HR 04/08/24 04:00 04/26/24 16:14 1 STRIP Dextrose 50 ml UD PRN IV 04/08/24 00:15 04/13/24 10:15 50 ML Pantoprazole Sodium 40 mg DAILY IV 04/09/24 08:00 04/26/24 08:54 40 MG Vancomycin HCl 0 ml @ 0 mls/hr UD IV 04/13/24 15:15 Midazolam HCl 50 ml @ 1 mls/hr Q24H IV 04/13/24 15:45 04/13/24 16:44 1 MLS/HR Enteral Nutritional Formula 1,000 ml 30ML/HR GT 04/15/24 08:45 04/20/24 17:01 1,000 ML Artificial Tears 1 drop Q6HP PRN EACHEYE 04/15/24 09:00 Insulin Human Regular HOLD INSULIN FOR BL... IQ4HR SC 04/18/24 16:00 04/26/24 08:07 4 UNITS Norepinephrine Bitartrate 250 ml @ 1.875 mls/ hr Q24H IV 04/20/24 16:15 04/26/24 09:38 3.75 MLS/HR Docusate Sodium 100 mg BID GT 04/22/24 10:00 04/26/24 08:54 100 MG Meropenem 50 ml @ 17 mls/hr Q12HR IV 04/22/24 22:00 04/26/24 08:54 17 MLS/HR Fentanyl Citrate 250 ml @ 2.5 mls/hr Q24H IV 04/22/24 23:20 04/25/24 06:12 5 MLS/HR Purified Water 100 ml Q6HR GT 04/24/24 12:00 04/26/24 11:00 100 ML Bumetanide 12.5 mg/Miscellaneous 50 ml @ 2 mls/hr Q24H IV 04/25/24 14:45 04/26/24 08:06 2 MLS/HR Examination: LUNGS:Abnormal, MSK:Abnormal, SKIN:Abnormal, NEURO:Abnormal laboratory and microbiology Laboratory Tests 04/26/24 03:39 Test 04/26/24 03:39 Range/Units Serum Glucose 229 H 74-106 mg/dL Microbiology Date/Time Source Procedure Growth Status 04/23/24 15:07 Gallbladder Fluid Gram Stain - Final Resulted 04/23/24 15:07 Gallbladder Fluid Body Fluid Culture - Preliminary Resulted 04/17/24 23:15 Voided Urine Urine Culture - Final Presumptive Nini albicans Complete 04/17/24 19:14 Blood Blood Culture - Final NO GROWTH AFTER 5 DAYS OF INCUBATION. Complete 04/17/24 17:53 Sputum Gram Stain - Final Complete 04/17/24 17:53 Respiratory Culture - Final Presumptive Nini albicans Complete 04/08/24 21:15 Nose MRSA Screen - Final Complete Problem List/Assessment/Plan Problem List/Assessment/Plan Acute kidney injury hemodynamically mediated in the setting of shock Septic shock Metabolic acidosis /lactic acidosis Urinary tract infection Sacral decubitus ulcers Hypoalbuminemia /transaminitis hypernatremia hypokalemia recs Bumex drip IV Patient is oligo anuric Renally dose antibiotics to GFR not a snf candidate for dialysis--informed son pt is a candidate for comfort care /hospice--recommend goals of care discussion Plan discussed with: Son, Other Dietary Evaluation Review Recommendations by RD: Protein Supplementation Comments: 1) If NPO > 7 days, consider EN/TPN to meet at least 75% of estimated daily energy needs. 2) Initiate Lucas @ 1 pk bid when medically feasible. 3) Advance diet to 60g CCHO/cardiac when medically feasible, pending [employer] approval. 4) Continue to monitor nutrition-related labs. Expected Outcomes/Goals: 1) diet to advance 2) appetite and labs to improve 3) f/u in 3-5 days CC Plasma Assessment Blood Product Administration S: 12:55 MONTRELL FUCHS MD Apr 26, 2024 16:57
--- NOTE | 2024-04-26 20:16 | DVHPN2 ---
Progress Note - Dictate Date Seen: Apr 26, 2024 Medical Necessity Reason Pt with a Central, PICC or Fol: Yes The following are medically ne: Central Line, PICC Line, Celaya Catheter Reason for celaya catheter: Strict I&O Subjective Patient seen and examined at bedside. intubated on mechanical ventilator. Overnight events reviewed. vital signs Vital Sign Date Time Temp Pulse Resp B/P (MAP) Pulse Ox O2 Delivery O2 Flow Rate FiO2 04/26/24 20:00 30 04/26/24 18:45 97.7 84 20 91/47 (62) 100 207.9 04/26/24 08:00 Mechanical Ventilator+ Total Intake and Output 04/25/24 04/25/24 04/26/24 15:00 23:00 07:00 Intake Total 128.500 ml 426.25 ml 350.00 ml Output Total 50 ml 30 ml Balance 128.500 ml 376.25 ml 320.00 ml medications Current Medications Medications Dose Ordered Sig/Gus Route Start Time Stop Time Status Last Admin Dose Admin Diagnostic Test (Pha) 1 strip IQ4HR 04/08/24 04:00 04/26/24 16:14 1 STRIP Dextrose 50 ml UD PRN IV 04/08/24 00:15 04/13/24 10:15 50 ML Pantoprazole Sodium 40 mg DAILY IV 04/09/24 08:00 04/26/24 08:54 40 MG Vancomycin HCl 0 ml @ 0 mls/hr UD IV 04/13/24 15:15 Midazolam HCl 50 ml @ 1 mls/hr Q24H IV 04/13/24 15:45 04/13/24 16:44 1 MLS/HR Enteral Nutritional Formula 1,000 ml 30ML/HR GT 04/15/24 08:45 04/20/24 17:01 1,000 ML Artificial Tears 1 drop Q6HP PRN EACHEYE 04/15/24 09:00 Insulin Human Regular HOLD INSULIN FOR BL... IQ4HR SC 04/18/24 16:00 04/26/24 08:07 4 UNITS Norepinephrine Bitartrate 250 ml @ 1.875 mls/ hr Q24H IV 04/20/24 16:15 04/26/24 09:38 3.75 MLS/HR Docusate Sodium 100 mg BID GT 04/22/24 10:00 04/26/24 08:54 100 MG Meropenem 50 ml @ 17 mls/hr Q12HR IV 04/22/24 22:00 04/26/24 08:54 17 MLS/HR Fentanyl Citrate 250 ml @ 2.5 mls/hr Q24H IV 04/22/24 23:20 04/25/24 06:12 5 MLS/HR Purified Water 100 ml Q6HR GT 04/24/24 12:00 04/26/24 17:11 100 ML Bumetanide 12.5 mg/Miscellaneous 50 ml @ 2 mls/hr Q24H IV 04/25/24 14:45 04/26/24 08:06 2 MLS/HR objective Gen.: Patient lying in bed in medical ICU. Intubated on mechanical ventilator. Head: Normocephalic, atraumatic. Eyes: PERRLA. Ears: Normal external anatomy. Throat: Endotracheal tube and orogastric tube in place. Neck: Supple, trachea midline. Chest: Transmitted breath sounds bilaterally. Decreased air entry bilaterally. No wheezing. Bibasilar crackles. Cardiovascular: Positive S1, positive S2. Regular rate and rhythm. Abdomen: Positive bowel sounds in all 4 quadrants. Soft, nontender, nondistended. : Celaya in place. Normal external genitalia. Rectal: Deferred. Skin: Warm, dry. Intact. Extremities: 2+ radial pulses bilaterally. No lower extremity edema. Neuro: Off sedation laboratory and microbiology Laboratory Tests 04/26/24 03:39 Test 04/26/24 03:39 Range/Units Serum Glucose 229 H 74-106 mg/dL Assessment/Plan Impression: Acute hypoxic respiratory failure On mechanical ventilator Shock Acute metabolic encephalopathy Aspiration pneumonia Events: Remains on vent support On AC mode; RR 20, VT 400, PEEP 5, FiO2 30% On pressors for hemodynamic support Levophed 2 mcg/min Titrate to keep mean arterial pressure greater than 65 mmHg. On Fentanyl for analgesia ABG reviewed, notable for alkalemia CXR reviewed, demonstrates mild pulmonary vascular congestion. Patchy airspace opacity in the left lung base with trace left pleural effusion. Devices in place. Continue antibiotics Free water d/t hypernatremia Monitor hemoglobin Monitor platelets Tube feeds for nutritional support Diurese as tolerated w/ Bumex drip Monitor renal function Poor UOP - 120 ml per shift. Monitor electrolytes. Supplement as necessary. Patient is not tolerating turns. Poor prognosis. SBT/ROBBI. Labs and imaging reviewed. Rest of plan as noted below. Plan: s/p intubation on mechanical ventilator. CXR image and report reviewed. Devices in place. Airspace disease worsening in the left lower lobe. No pneumothorax. No pleural effusion. On AC mode; RR 20, VT 400, PEEP 5, FiO2 30% Titrate FIO2 to keep O2 saturation above 90%. VAP bundle. Daily ABG and CXR while intubated Off sedation Continue antibiotics. F/u cultures. On pressors for hemodynamic support Titrate to keep mean arterial pressure greater than 65 mmHg. Monitor renal function Monitor electrolytes. Supplement as necessary. Monitor ins and outs. Maintain euvolemia. GI prophylaxis. DVT prophylaxis. Prognosis: Poor given patient's multiple co-morbidities. Condition: Critical Rest of plan per hospitalist and other consultants. A total of 35 minutes of critical care time was spent reviewing the patient record, examining the patient, making a diagnostic and therapeutic plan, discussing this plan with the medical personnel, following up on diagnostic studies and following the patient for clinical stability excluding any and all procedures. At least 50% of this time was spent in direct, [id number] contact. Thank you Dr. Curiel for allowing me to participate in this patient's care. Further recommendations will depend on the patient's clinical course. Please do not hesitate to contact me if you have any questions or concerns. This medical document was created using an electronic medical record system with [employer] dictation system. Although these documentations are being carefully reviewed, there may still be some phonetic and typographical changes. The errors are purely typographical, due to imperfection on the software program, and do not reflect any compromise in the patient's medical care. Dietary Evaluation Review Recommendations by RD: Protein Supplementation Comments: 1) If NPO > 7 days, consider EN/TPN to meet at least 75% of estimated daily energy needs. 2) Initiate Lucas @ 1 pk bid when medically feasible. 3) Advance diet to 60g CCHO/cardiac when medically feasible, pending [employer] approval. 4) Continue to monitor nutrition-related labs. Expected Outcomes/Goals: 1) diet to advance 2) appetite and labs to improve 3) f/u in 3-5 days Plan discussed with: Other (ENRIQUE Veloz) Critical Care Time(min): 35 CC Plasma Assessment Blood Product Administration S: 12:55 GUILLERMINA WILLSON MD Apr 26, 2024 20:16
[2024-04-27] VITALS (109 sets, daily range): BP systolic 81–143; BP diastolic 32–106; PULSE 73–114; RESP 17–22; TEMP 96.8–98.8; O2SAT 71–100
[2024-04-27 05:25] LABS: Hemoglobin 9.9 g/dL (12.2-16.2); Mean Corpuscular Hemoglobin 31.5 pg (28.0-32.0); Potassium 3.9 mmol/L (3.5-5.1); Red Blood Cells 3.16 10^6/uL (4.0-5.20); Red Cell Distribution Width 15.8 % (11.8-14.3); White Blood Cell 5.6 10^3/uL (4.4-10.8)
[2024-04-27 05:26] LABS: Anion Gap 12 (5-15); Carbon Dioxide 21 mmol/L (20-31)
[2024-04-27 05:30] LABS: Hematocrit 29.9 % (36.0-46.0); Mean Corpuscular Hgb Conc. 33.2 g/dL (32.0-36.0); Mean Corpuscular Volume 94.8 fL (80.0-100.0); Platelet Count (auto) 48 10^3/uL (140-450)
--- NOTE | 2024-04-27 05:45 | DVH ---
CHEST RADIOGRAPH Indication: INTUBATED Technique: Single frontal view of the chest was obtained COMPARISON: XY CHEST PORTABLE on DOS: 04/26/24, XY CHEST PORTABLE on DOS: 04/25/24, XY CHEST PORTABLE o n DOS: 04/24/24, XY CHEST PORTABLE on DOS: 04/23/24, XY CHEST PORTABLE on DOS: 04/22/24 FINDINGS: Lines and Tubes: Unchanged Lungs: Atelectasis in the left lower lobe with small left pleural effusion. No pneumothorax. Cardiomediastinal contours: Unchanged Bones: Unremarkable IMPRESSION: 1. Unchanged atelectasis in the left lower lobe with small left pleural effusion.
[2024-04-27 05:49] LABS: Basophils % (manual) 0 (0.0-2.0); Blast Cells 0; Eosinophils % (manual) 0 (0-7); Metamyelocytes % 0; Myelocytes % 0; Promyelocytes % 0; Reactive Lymphocytes 0
[2024-04-27 05:52] LABS: Sodium 145 mmol/L (136-145)
[2024-04-27 05:53] LABS: Blood Urea Nitrogen 72 mg/dL (9-23); Calcium 10.6 mg/dL (8.7-10.4); Chloride 112 mmol/L (98-107); Glucose 162 mg/dL (74-106)
[2024-04-27 07:07] LABS: Base Excess -3.8 mmol/L (-2.0-3.0)
[2024-04-27 08:21] LABS: Band Neutrophils % (manual) 3; Lymphocytes % (manual) 6 (10.0-50.0); Monocytes % (manual) 4 (0-12)
[2024-04-27 08:22] LABS: Large Platelets FEW; Platelet Estimate Decreased
--- NOTE | 2024-04-27 12:25 | DVHPN2 ---
Progress Note Date Seen: Apr 27, 2024 Medical Necessity Reason Pt with a Central, PICC or Fol: Yes The following are medically ne: Central Line, PICC Line, Celaya Catheter Reason for celaya catheter: Strict I&O Subjective Patient reports: Other (No new events seen with RN bedside) Review of Systems: Deferred Objective vital signs Vital Sign Date Time Temp Pulse Resp B/P (MAP) Pulse Ox O2 Delivery O2 Flow Rate FiO2 04/27/24 11:30 97.2 78 20 122/60 (80) 98 207.0 04/27/24 10:00 30 04/27/24 08:00 Mechanical Ventilator+ Total Intake and Output 04/26/24 04/26/24 04/27/24 15:00 23:00 07:00 Intake Total 138 ml 351.125 ml 366.0 ml Output Total 325 ml 90 ml Balance 138 ml 26.125 ml 276.0 ml medications Current Medications Medications Dose Ordered Sig/Gus Route Start Time Stop Time Status Last Admin Dose Admin Diagnostic Test (Pha) 1 strip IQ4HR 04/08/24 04:00 04/27/24 08:00 1 STRIP Dextrose 50 ml UD PRN IV 04/08/24 00:15 04/13/24 10:15 50 ML Pantoprazole Sodium 40 mg DAILY IV 04/09/24 08:00 04/27/24 10:23 40 MG Vancomycin HCl 0 ml @ 0 mls/hr UD IV 04/13/24 15:15 Midazolam HCl 50 ml @ 1 mls/hr Q24H IV 04/13/24 15:45 04/13/24 16:44 1 MLS/HR Enteral Nutritional Formula 1,000 ml 30ML/HR GT 04/15/24 08:45 04/20/24 17:01 1,000 ML Artificial Tears 1 drop Q6HP PRN EACHEYE 04/15/24 09:00 Insulin Human Regular HOLD INSULIN FOR BL... IQ4HR SC 04/18/24 16:00 04/27/24 01:20 4 UNITS Norepinephrine Bitartrate 250 ml @ 1.875 mls/ hr Q24H IV 04/20/24 16:15 04/26/24 09:38 3.75 MLS/HR Docusate Sodium 100 mg BID GT 04/22/24 10:00 04/27/24 10:23 100 MG Meropenem 50 ml @ 17 mls/hr Q12HR IV 04/22/24 22:00 04/27/24 10:23 17 MLS/HR Fentanyl Citrate 250 ml @ 2.5 mls/hr Q24H IV 04/22/24 23:20 04/27/24 05:35 5 MLS/HR Purified Water 100 ml Q6HR GT 04/24/24 12:00 04/27/24 05:35 100 ML Bumetanide 12.5 mg/Miscellaneous 50 ml @ 2 mls/hr Q24H IV 04/25/24 14:45 04/27/24 05:34 2 MLS/HR Examination: GENERAL:Abnormal, LUNGS:Abnormal, MSK:Abnormal, SKIN:Abnormal laboratory and microbiology Laboratory Tests 04/27/24 04:50 Test 04/27/24 04:50 Range/Units Serum Glucose 162 H 74-106 mg/dL Microbiology Date/Time Source Procedure Growth Status 04/23/24 15:07 Gallbladder Fluid Gram Stain - Final Resulted 04/23/24 15:07 Gallbladder Fluid Body Fluid Culture - Preliminary Resulted 04/17/24 23:15 Voided Urine Urine Culture - Final Presumptive Nini albicans Complete 04/17/24 19:14 Blood Blood Culture - Final NO GROWTH AFTER 5 DAYS OF INCUBATION. Complete 04/17/24 17:53 Sputum Gram Stain - Final Complete 04/17/24 17:53 Respiratory Culture - Final Presumptive Nini albicans Complete 04/08/24 21:15 Nose MRSA Screen - Final Complete Problem List/Assessment/Plan Problem List/Assessment/Plan Acute kidney injury hemodynamically mediated in the setting of shock Septic shock Metabolic acidosis /lactic acidosis Urinary tract infection Sacral decubitus ulcers Hypoalbuminemia /transaminitis hypernatremia hypokalemia recs Bumex drip IV Patient is oliguric Renally dose antibiotics to GFR not a long-term candidate for dialysis--informed son pt is a candidate for comfort care /hospice--recommend goals of care discussion Plan discussed with: Other Dietary Evaluation Review Recommendations by RD: Protein Supplementation Comments: 1) If NPO > 7 days, consider EN/TPN to meet at least 75% of estimated daily energy needs. 2) Initiate Lucas @ 1 pk bid when medically feasible. 3) Advance diet to 60g CCHO/cardiac when medically feasible, pending ADVANCE AGENT approval. 4) Continue to monitor nutrition-related labs. Expected Outcomes/Goals: 1) diet to advance 2) appetite and labs to improve 3) f/u in 3-5 days CC Plasma Assessment Blood Product Administration S: 12:55 MONTRELL FUCHS MD Apr 27, 2024 12:25
[2024-04-27] MEDS: VANCOMYCIN 500mg/100mL 100 ML IV ONE (14:12)
--- NOTE | 2024-04-27 20:22 | DVHPN2 ---
Reviewed: Care Plan, H&P, Labs, Medications, Previous Orders, Radiology Changes from previous H/P or p: No Changes General: Per HPI Objective Vitals Vital Signs Date Time Temp Pulse Resp B/P (MAP) Pulse Ox O2 Delivery O2 Flow Rate FiO2 04/27/24 20:02 89 20 106/58 (74) 100 30 04/27/24 20:00 Mechanical Ventilator+ 04/27/24 18:00 98.2 208.8 Intake/Output Intake and Output 04/27/24 07:00 Intake Total 855.125 ml Output Total 415 ml Balance 440.125 ml Intake Oral 240 ml IV Total 415.125 ml Tube Feeding 200 ml Output Urine Total 105 ml Stool Total 200 ml Other 110 ml # Bowel Movements 1 Medications Current Medications Medications Dose Ordered Sig/Gus Route Start Time Stop Time Status Last Admin Dose Admin Diagnostic Test (Pha) 1 strip IQ4HR 04/08/24 04:00 04/27/24 17:00 1 STRIP Dextrose 50 ml UD PRN IV 04/08/24 00:15 04/13/24 10:15 50 ML Pantoprazole Sodium 40 mg DAILY IV 04/09/24 08:00 04/27/24 10:23 40 MG Vancomycin HCl 0 ml @ 0 mls/hr UD IV 04/13/24 15:15 Midazolam HCl 50 ml @ 1 mls/hr Q24H IV 04/13/24 15:45 04/13/24 16:44 1 MLS/HR Enteral Nutritional Formula 1,000 ml 30ML/HR GT 04/15/24 08:45 04/20/24 17:01 1,000 ML Artificial Tears 1 drop Q6HP PRN EACHEYE 04/15/24 09:00 Insulin Human Regular HOLD INSULIN FOR BL... IQ4HR SC 04/18/24 16:00 04/27/24 01:20 4 UNITS Norepinephrine Bitartrate 250 ml @ 1.875 mls/ hr Q24H IV 04/20/24 16:15 04/27/24 17:32 9.375 MLS/HR Docusate Sodium 100 mg BID GT 04/22/24 10:00 04/27/24 10:23 100 MG Meropenem 50 ml @ 17 mls/hr Q12HR IV 04/22/24 22:00 04/27/24 10:23 17 MLS/HR Fentanyl Citrate 250 ml @ 2.5 mls/hr Q24H IV 04/22/24 23:20 04/27/24 05:35 5 MLS/HR Purified Water 100 ml Q6HR GT 04/24/24 12:00 04/27/24 17:36 100 ML Bumetanide 12.5 mg/Miscellaneous 50 ml @ 2 mls/hr Q24H IV 04/25/24 14:45 04/27/24 05:34 2 MLS/HR Laboratory Results Laboratory Tests 04/27/24 04:50 Chemistry Test 04/27/24 04:50 Calcium Level 10.6 mg/dL (8.7-10.4) H Urinalysis Test 04/07/24 21:30 04/10/24 10:21 04/17/24 23:15 04/21/24 18:28 Urine WBC Clumps Present /hpf (None Seen) Urine Osmolality 345 mOsm/kg Urine Protein/Creatinine Ratio 2.06 Urine Potassium 41 mmol/L (12-62) Urine Total Protein 100.4 mg/dL (1-14) H Urine Color Dark-yellow (Yellow) Urine Clarity Turbid (Clear) H Urine pH 5.5 (5.0-9.0) Urine Specific [place] 1.022 (1.001-1.035) Urine Protein 2+ (Negative) H Urine Ketones Trace (Negative) Urine Blood 2+ /uL (Negative) H Urine Nitrite Negative (Negative) Urine Bilirubin 1+ (Negative) H Urine Urobilinogen 2 mg/dL (Negative) H Urine Leukocyte Esterase Trace /uL (Negative) Urine RBC 1 /hpf (0 - 4) Urine WBC 7 /hpf (0 - 5) Urine Squamous Epithelial Cells None seen /hpf (<5) Urine Bacteria None seen /hpf (None Seen) Urine Mucus Few (None Seen) Urine Yeast (Budding) Loaded /hpf (None Seen) Urine Glucose Normal mg/dL (Normal) Urine Creatinine 90.13 mg/dL (30.0-125.0) Urine Sodium 13 mmol/L (40-220) L Blood Gas Results Test 04/27/24 07:03 Arterial Blood pH 7.474 (7.350-7.450) FiO2 % 30.0 Microbiology Microbiology Date/Time Source Procedure Growth Status 04/23/24 15:07 Gallbladder Fluid Gram Stain - Final Resulted 04/23/24 15:07 Gallbladder Fluid Body Fluid Culture - Preliminary Resulted 04/17/24 23:15 Voided Urine Urine Culture - Final Presumptive Nini albicans Complete 04/17/24 19:14 Blood Blood Culture - Final NO GROWTH AFTER 5 DAYS OF INCUBATION. Complete 04/17/24 17:53 Sputum Gram Stain - Final Complete 04/17/24 17:53 Respiratory Culture - Final Presumptive Nini albicans Complete 04/08/24 21:15 Nose MRSA Screen - Final Complete Assessment/Plan Assessment/Plan #Sedation Fentanyl @50 cc/hr #acute metabolic encephalopathy due to sepsis , ?thiamine def -head CT -thiamine IV # history of dementia ? Thiamine deficiency -thiamine replaced Cardiology #shock, septic vs cardiogenic shock -currently on norepinephrine @ 3cc/hr -IV steroids,discontinued -repeat panculture #extravascular fluid overload likely oncotic albumin f/b Lasix, discontinued albumin restarted by welder production line gas, discontinued #acute on chronic heart failure with reduced ejection fraction 40% -currently on norepinephrine #CAD s/p CABG -hold antiplatelet/anticoagulation considering low platelet count # history of DVT Repeat lower extremity Doppler venous showed evidence of nonocclusive thrombus in bilateral femoral veins -hold antiplatelet/anticoagulation considering low platelet count # superficial venous phlebitis right arm Warm compresses #Bluish black discoloration right hand , distribution of radial artery -rule out limb ischaemia -arterial duplex GI #Elevated Bilirubin, direct > indirect -obstructive pattern -liver USG -liver Doppler to rule out Budd Chiari #Transaminitis due to acalculous cholecystitis -monitor #?Acalculous cholecystitis -IR consulted for cholecystostomy s/p cholecystectomy 04/23/24 # PUD prophylaxis -IV Protonix Infectious disease #Sepsis due to aspiration pneumonia/ infected wounds -IV antibiotics -repeat panculture #infected sacral ulcer -IV antibiotics -wound culture Respiratory #acute hypoxic respiratory failure 2/2 aspiration PNA -on mech vent #Aspiration pneumonia IV antibiotics, vanc, meropenem Nephrology #MELVINA likely ATN -monitor BMP -started on bumex drip by the welder production line gas # hypokalemia Replaced #Hypomagnesemia -replace # hyponatremia -free water through NG tube, discontinued Hematology/oncology #Severe anemia requiring blood transfusion -ordered hemolysis workup -hematology oncology workup Haptoglobin, direct, indirect Shira test, LDH #?DIC -2 unit of FFP transfused #?HIT -4t Score of 6 -stopped Lovenox #thrombocytopenia -1 unit of PRP #Coagulopathy due to DIC -vitamin k once IV -monitor -2 units of FFP replaced Nutrition started on Nepro with Carb steady DVT prophylaxis, on hold due to low platelet count SCDs Drips Norepinephrine fentanyl Lines Right subclavian CVC Input/Output 1107/80ml Code Status discussed with the family for >23min, FULL CODE My Orders Orders - TIA WILKINS DO Procedure Category Date Status Time Complete Blood Count LAB 04/28/24 Verified 04:00 Comprehensive LAB 04/28/24 Verified Metabolic Panel 04:00 Date of Service: Apr 27, 2024 Billing Provider: TIA WILKINS JIMMY T DO Apr 27, 2024 20:22
--- NOTE | 2024-04-27 22:11 | DVHPN2 ---
Progress Note - Dictate Date Seen: Apr 27, 2024 Medical Necessity Reason Pt with a Central, PICC or Fol: Yes The following are medically ne: Central Line, PICC Line, Celaya Catheter Reason for celaya catheter: Strict I&O Subjective Patient seen and examined at bedside. intubated on mechanical ventilator. Overnight events reviewed. vital signs Vital Sign Date Time Temp Pulse Resp B/P (MAP) Pulse Ox O2 Delivery O2 Flow Rate FiO2 04/27/24 21:59 84 20 106/59 (75) 98 30 04/27/24 20:15 98.1 208.6 04/27/24 20:00 Mechanical Ventilator+ Total Intake and Output 04/26/24 04/26/24 04/27/24 15:00 23:00 07:00 Intake Total 138 ml 351.125 ml 366.0 ml Output Total 325 ml 90 ml Balance 138 ml 26.125 ml 276.0 ml medications Current Medications Medications Dose Ordered Sig/Gus Route Start Time Stop Time Status Last Admin Dose Admin Diagnostic Test (Pha) 1 strip IQ4HR 04/08/24 04:00 04/27/24 20:29 1 STRIP Dextrose 50 ml UD PRN IV 04/08/24 00:15 04/13/24 10:15 50 ML Pantoprazole Sodium 40 mg DAILY IV 04/09/24 08:00 04/27/24 10:23 40 MG Vancomycin HCl 0 ml @ 0 mls/hr UD IV 04/13/24 15:15 Midazolam HCl 50 ml @ 1 mls/hr Q24H IV 04/13/24 15:45 04/13/24 16:44 1 MLS/HR Enteral Nutritional Formula 1,000 ml 30ML/HR GT 04/15/24 08:45 04/20/24 17:01 1,000 ML Artificial Tears 1 drop Q6HP PRN EACHEYE 04/15/24 09:00 Insulin Human Regular HOLD INSULIN FOR BL... IQ4HR SC 04/18/24 16:00 04/27/24 01:20 4 UNITS Norepinephrine Bitartrate 250 ml @ 1.875 mls/ hr Q24H IV 04/20/24 16:15 04/27/24 17:32 9.375 MLS/HR Docusate Sodium 100 mg BID GT 04/22/24 10:00 04/27/24 21:32 100 MG Meropenem 50 ml @ 17 mls/hr Q12HR IV 04/22/24 22:00 04/27/24 21:32 17 MLS/HR Fentanyl Citrate 250 ml @ 2.5 mls/hr Q24H IV 04/22/24 23:20 04/27/24 05:35 5 MLS/HR Purified Water 100 ml Q6HR GT 04/24/24 12:00 04/27/24 17:36 100 ML Bumetanide 12.5 mg/Miscellaneous 50 ml @ 2 mls/hr Q24H IV 04/25/24 14:45 04/27/24 05:34 2 MLS/HR objective Gen.: Patient lying in bed in medical ICU. Intubated on mechanical ventilator. Head: Normocephalic, atraumatic. Eyes: PERRLA. Ears: Normal external anatomy. Throat: Endotracheal tube and orogastric tube in place. Neck: Supple, trachea midline. Chest: Transmitted breath sounds bilaterally. Decreased air entry bilaterally. No wheezing. Bibasilar crackles. Cardiovascular: Positive S1, positive S2. Regular rate and rhythm. Abdomen: Positive bowel sounds in all 4 quadrants. Soft, nontender, nondistended. : Celaya in place. Normal external genitalia. Rectal: Deferred. Skin: Warm, dry. Intact. Extremities: 2+ radial pulses bilaterally. No lower extremity edema. Neuro: Off sedation laboratory and microbiology Laboratory Tests 04/27/24 04:50 Test 04/27/24 04:50 Range/Units Serum Glucose 162 H 74-106 mg/dL Assessment/Plan Impression: Acute hypoxic respiratory failure On mechanical ventilator Shock Acute metabolic encephalopathy Aspiration pneumonia Events: Remains on vent support On AC mode; RR 20, VT 400, PEEP 5, FiO2 30% On pressors for hemodynamic support Levophed 2 mcg/min Titrate to keep mean arterial pressure greater than 65 mmHg. Off sedation On Fentanyl drip for analgesia ABG reviewed, notable for alkalemia CXR reviewed, demonstrates unchanged atelectasis in the left lower lobe with small left pleural effusion. No pneumothorax. Devices in place. Patient is jaundiced. Continue wound care. Continue antibiotics Free water d/t hypernatremia Monitor hemoglobin Monitor platelets Tube feeds for nutritional support Diurese as tolerated w/ Bumex drip Monitor renal function Poor UOP Monitor electrolytes. Supplement as necessary. Patient is not a candidate for HD. Patient is not tolerating turns. Poor prognosis - poor chance of meaningful recovery. SBT/ROBBI. Labs and imaging reviewed. Rest of plan as noted below. Plan: s/p intubation on mechanical ventilator. CXR image and report reviewed. Devices in place. Airspace disease worsening in the left lower lobe. No pneumothorax. No pleural effusion. On AC mode; RR 20, VT 400, PEEP 5, FiO2 30% Titrate FIO2 to keep O2 saturation above 90%. VAP bundle. Daily ABG and CXR while intubated Off sedation Continue antibiotics. F/u cultures. On pressors for hemodynamic support Titrate to keep mean arterial pressure greater than 65 mmHg. Monitor renal function Monitor electrolytes. Supplement as necessary. Monitor ins and outs. Maintain euvolemia. GI prophylaxis. DVT prophylaxis. Prognosis: Poor given patient's multiple co-morbidities. Condition: Critical Rest of plan per hospitalist and other consultants. A total of 35 minutes of critical care time was spent reviewing the patient record, examining the patient, making a diagnostic and therapeutic plan, discussing this plan with the medical personnel, following up on diagnostic studies and following the patient for clinical stability excluding any and all procedures. At least 50% of this time was spent in direct, [id number] contact. Thank you Dr. Curiel for allowing me to participate in this patient's care. Further recommendations will depend on the patient's clinical course. Please do not hesitate to contact me if you have any questions or concerns. This medical document was created using an electronic medical record system with [employer] dictation system. Although these documentations are being carefully reviewed, there may still be some phonetic and typographical changes. The errors are purely typographical, due to imperfection on the software program, and do not reflect any compromise in the patient's medical care. Dietary Evaluation Review Recommendations by RD: Protein Supplementation Comments: 1) If NPO > 7 days, consider EN/TPN to meet at least 75% of estimated daily energy needs. 2) Initiate Lucas @ 1 pk bid when medically feasible. 3) Advance diet to 60g CCHO/cardiac when medically feasible, pending TUBE LASER OPERATOR approval. 4) Continue to monitor nutrition-related labs. Expected Outcomes/Goals: 1) diet to advance 2) appetite and labs to improve 3) f/u in 3-5 days Plan discussed with: Other (RN) Critical Care Time(min): 35 CC Plasma Assessment Blood Product Administration S: 12:55 GUILLERMINA WILLSON MD Apr 27, 2024 22:11
--- NOTE | 2024-04-27 23:16 | DVHPN2 ---
Progress Note - Dictate Date Seen: Apr 27, 2024 Medical Necessity Reason Pt with a Central, PICC or Fol: Yes The following are medically ne: Central Line, PICC Line, Celaya Catheter Reason for celaya catheter: Strict I&O Subjective Patient was seen and valuated in follow up in the ICU. Patient is intubated and sedated on ventilator. FiO2 30%. Son at bedside. Patient intermittently opens eyes, does not follow commands. HGB 9.9, HCT 29.9, CL 112, BUN 72, AZURE PRINCIPAL SOLUTION SPECIALIST 2.25. vital signs Vital Sign Date Time Temp Pulse Resp B/P (MAP) Pulse Ox O2 Delivery O2 Flow Rate FiO2 04/27/24 12:20 84 20 101/48 (65) 99 30 04/27/24 11:30 97.2 207.0 04/27/24 08:00 Mechanical Ventilator+ Total Intake and Output 04/26/24 04/26/24 04/27/24 15:00 23:00 07:00 Intake Total 138 ml 351.125 ml 366.0 ml Output Total 325 ml 90 ml Balance 138 ml 26.125 ml 276.0 ml medications Current Medications Medications Dose Ordered Sig/Gus Route Start Time Stop Time Status Last Admin Dose Admin Diagnostic Test (Pha) 1 strip IQ4HR 04/08/24 04:00 04/27/24 08:00 1 STRIP Dextrose 50 ml UD PRN IV 04/08/24 00:15 04/13/24 10:15 50 ML Pantoprazole Sodium 40 mg DAILY IV 04/09/24 08:00 04/27/24 10:23 40 MG Vancomycin HCl 0 ml @ 0 mls/hr UD IV 04/13/24 15:15 Midazolam HCl 50 ml @ 1 mls/hr Q24H IV 04/13/24 15:45 04/13/24 16:44 1 MLS/HR Enteral Nutritional Formula 1,000 ml 30ML/HR GT 04/15/24 08:45 04/20/24 17:01 1,000 ML Artificial Tears 1 drop Q6HP PRN EACHEYE 04/15/24 09:00 Insulin Human Regular HOLD INSULIN FOR BL... IQ4HR SC 04/18/24 16:00 04/27/24 01:20 4 UNITS Norepinephrine Bitartrate 250 ml @ 1.875 mls/ hr Q24H IV 04/20/24 16:15 1/18/25 09:38 3.75 MLS/HR Docusate Sodium 100 mg BID GT 04/22/24 10:00 04/27/24 10:23 100 MG Meropenem 50 ml @ 17 mls/hr Q12HR IV 04/22/24 22:00 04/27/24 10:23 17 MLS/HR Fentanyl Citrate 250 ml @ 2.5 mls/hr Q24H IV 04/22/24 23:20 04/27/24 05:35 5 MLS/HR Purified Water 100 ml Q6HR GT 04/24/24 12:00 04/27/24 05:35 100 ML Bumetanide 12.5 mg/Miscellaneous 50 ml @ 2 mls/hr Q24H IV 04/25/24 14:45 04/27/24 05:34 2 MLS/HR objective GENERAL: Intubated on ventilator. LUNGS: Decreased breath sounds. CARDIOVASCULAR: Heart sounds are good. ABDOMEN: Soft. EXT: +1 pitting edema. laboratory and microbiology Laboratory Tests 04/27/24 04:50 Test 04/27/24 04:50 Range/Units Serum Glucose 162 H 74-106 mg/dL Problem List Questionable atrial fibrillation (takes Eliquis at home). Coronary artery disease status post triple-vessel CABG. Acute on chronic HFrEF, NYHA class III. Sepsis. Hypertension. Hyperlipidemia. CVA with right-sided deficit. Chronic kidney disease. Type 2 diabetes mellitus. Transaminitis. Anemia. Osteoporosis. Dementia. Bed-bound. Assessment/Plan Continued all current supportive medical care. IV antibiotics as ordered. GI prophylactics. Vasopressors for hemodynamic support. Additional plan as per the hospital course. Critical care time of 45 minutes provided to include time spent evaluation of patient at bedside, when appropriate patient/family education for diagnosis, treatment plan, review of pertinent medical information and discussion of care with specialty providers and PCP. Mechanical ventilator parameters, treatment and adjustments have personally been reviewed by me and treatment plan by youth coordinator has also been reviewed. Dietary Evaluation Review Recommendations by RD: Protein Supplementation Comments: 1) If NPO > 7 days, consider EN/TPN to meet at least 75% of estimated daily energy needs. 2) Initiate Lucas @ 1 pk bid when medically feasible. 3) Advance diet to 60g CCHO/cardiac when medically feasible, pending ICT ACCOUNT MANAGER approval. 4) Continue to monitor nutrition-related labs. Expected Outcomes/Goals: 1) diet to advance 2) appetite and labs to improve 3) f/u in 3-5 days Plan discussed with: Other CC Plasma Assessment Blood Product Administration S: 12:55 JONNA MAGANA MD Apr 27, 2024 12:50
[2024-04-28] VITALS (106 sets, daily range): BP systolic 88–144; BP diastolic 30–103; PULSE 78–115; RESP 15–22; TEMP 96.8–99.3; O2SAT 88–100
[2024-04-28 05:15] LABS: Hemoglobin 9.7 g/dL (12.2-16.2); White Blood Cell 6.1 10^3/uL (4.4-10.8)
[2024-04-28 05:18] LABS: Mean Corpuscular Hemoglobin 31.8 pg (28.0-32.0); Mean Corpuscular Hgb Conc. 33.5 g/dL (32.0-36.0); Mean Corpuscular Volume 95.1 fL (80.0-100.0); Platelet Count (auto) 46 10^3/uL (140-450); Red Blood Cells 3.05 10^6/uL (4.0-5.20)
[2024-04-28 05:24] LABS: Basophils % (manual) 0 (0.0-2.0); Blast Cells 0; Eosinophils % (manual) 0 (0-7); Metamyelocytes % 0; Myelocytes % 0; Promyelocytes % 0; Reactive Lymphocytes 0
--- NOTE | 2024-04-28 05:28 | DVH ---
CHEST RADIOGRAPH Indication: intubated Technique: Single frontal view of the chest was obtained Comparison: XY CHEST PORTABLE on DOS: 04/27/24 FINDINGS: Lines and Tubes: Right central venous catheter terminates in the superior vena cava. The enteric tub e terminates in the stomach. The endotracheal tube terminates 5.3 cm above the nora. Lungs: Left basilar atelectasis. Pleura: Stable left pleural effusion, small. No pneumothorax. Cardiomediastinal contours: Unremarkable Bones: No acute osseous abnormality. Status post median sternotomy. IMPRESSION: 1. No significant interval change.
[2024-04-28 05:35] LABS: Alanine Aminotransferase 32 U/L (7-40); Anion Gap 14 (5-15); Calcium 10.3 mg/dL (8.7-10.4); Potassium 4.1 mmol/L (3.5-5.1); Sodium 144 mmol/L (136-145)
[2024-04-28 06:13] LABS: Band Neutrophils % (manual) 3; Lymphocytes % (manual) 6 (10.0-50.0); Monocytes % (manual) 4 (0-12)
[2024-04-28 06:14] LABS: Albumin 2.3 g/dL (3.2-4.8); Alkaline Phosphatase 1164 U/L (46-116); Aspartate Aminotransferase 87 U/L (13-40); BUN/Creatinine Ratio 32.6 (10.0-20.0); Blood Urea Nitrogen 75 mg/dL (9-23); Carbon Dioxide 19 mmol/L (20-31); Chloride 111 mmol/L (98-107); Glucose 192 mg/dL (74-106); Large Platelets FEW; Platelet Estimate Decrea; Target Cell FEW; Total Protein 4.8 g/dL (5.7-8.2)
[2024-04-28 12:52] LABS: Creatinine, Urine 14.85 mg/dL (30.0-125.0)
--- NOTE | 2024-04-28 15:46 | DVHPN2 ---
Progress Note Date Seen: Apr 28, 2024 Medical Necessity Reason Pt with a Central, PICC or Fol: Yes The following are medically ne: Central Line, PICC Line, Celaya Catheter Reason for celaya catheter: Strict I&O Subjective Review of Systems: RESPIRATORY:Abnormal (, ) Other Systems: Patient seen and examined by myself today in f/u Patient intubated on ventilator Objective vital signs Vital Sign Date Time Temp Pulse Resp B/P (MAP) Pulse Ox O2 Delivery O2 Flow Rate FiO2 04/28/24 14:30 60 04/28/24 14:25 85 20 94/58 (70) 99 04/28/24 12:45 98.1 208.6 04/28/24 08:00 Mechanical Ventilator+ Total Intake and Output 04/27/24 04/27/24 04/28/24 15:00 23:00 07:00 Intake Total 175.375 ml 221.000 ml 381.000 ml Output Total 125 ml 95 ml Balance 175.375 ml 96.000 ml 286.000 ml medications Current Medications Medications Dose Ordered Sig/Gus Route Start Time Stop Time Status Last Admin Dose Admin Diagnostic Test (Pha) 1 strip IQ4HR 04/08/24 04:00 04/28/24 13:48 1 STRIP Dextrose 50 ml UD PRN IV 04/08/24 00:15 04/13/24 10:15 50 ML Pantoprazole Sodium 40 mg DAILY IV 04/09/24 08:00 04/28/24 09:56 40 MG Vancomycin HCl 0 ml @ 0 mls/hr UD IV 04/13/24 15:15 Midazolam HCl 50 ml @ 1 mls/hr Q24H IV 04/13/24 15:45 04/13/24 16:44 1 MLS/HR Enteral Nutritional Formula 1,000 ml 30ML/HR GT 04/15/24 08:45 04/28/24 09:41 1,000 ML Artificial Tears 1 drop Q6HP PRN EACHEYE 04/15/24 09:00 Insulin Human Regular HOLD INSULIN FOR BL... IQ4HR SC 04/18/24 16:00 04/27/24 01:20 4 UNITS Norepinephrine Bitartrate 250 ml @ 1.875 mls/ hr Q24H IV 04/20/24 16:15 04/27/24 17:32 9.375 MLS/HR Docusate Sodium 100 mg BID GT 04/22/24 10:00 04/28/24 09:56 100 MG Meropenem 50 ml @ 17 mls/hr Q12HR IV 04/22/24 22:00 04/28/24 09:58 17 MLS/HR Fentanyl Citrate 250 ml @ 2.5 mls/hr Q24H IV 04/22/24 23:20 04/27/24 05:35 5 MLS/HR Bumetanide 12.5 mg/Miscellaneous 50 ml @ 2 mls/hr Q24H IV 04/25/24 14:45 04/28/24 06:38 2 MLS/HR Examination: LUNGS:Normal, CVS:Normal, MSK:Normal laboratory and microbiology Laboratory Tests 04/28/24 04:54 Test 04/28/24 04:54 Range/Units Serum Glucose 192 H 74-106 mg/dL Microbiology Date/Time Source Procedure Growth Status 04/23/24 15:07 Gallbladder Fluid Gram Stain - Final Resulted 04/23/24 15:07 Gallbladder Fluid Body Fluid Culture - Preliminary Resulted 04/17/24 23:15 Voided Urine Urine Culture - Final Presumptive Nini albicans Complete 04/17/24 19:14 Blood Blood Culture - Final NO GROWTH AFTER 5 DAYS OF INCUBATION. Complete 04/17/24 17:53 Sputum Gram Stain - Final Complete 04/17/24 17:53 Respiratory Culture - Final Presumptive Nini albicans Complete 04/08/24 21:15 Nose MRSA Screen - Final Complete Problem List/Assessment/Plan Problem List/Assessment/Plan MELVINA secondary to hemodynamic mediated Acute respiratory failure, intubated on ventilator Septic shock Metabolic acidosis Urinary tract infection Sacral decubitus ulcers Hypoalbuminemia /transaminitis hypernatremia hypokalemia REC: Kidney function slightly worsened today Bumex drip IV Add dopamine low dose IVF 1/2 NS with sodium bicarb Patient is oliguric Renally dose antibiotics to GFR not a alf candidate for dialysis--informed son pt is a candidate for comfort care /hospice--recommend goals of care discussion Plan discussed with: Other (nurse) My Orders My Orders Orders - JARROD JOHNSON MD Procedure Category Date Status Time Dopamine Drip PHA 04/28/24 Verified 15:45 Dietary Evaluation Review Recommendations by RD: Protein Supplementation Comments: 1) If NPO > 7 days, consider EN/TPN to meet at least 75% of estimated daily energy needs. 2) Initiate Lucas @ 1 pk bid when medically feasible. 3) Advance diet to 60g CCHO/cardiac when medically feasible, pending SENIOR MANAGER [employer] approval. 4) Continue to monitor nutrition-related labs. Expected Outcomes/Goals: 1) diet to advance 2) appetite and labs to improve 3) f/u in 3-5 days CC Plasma Assessment Blood Product Administration S: 12:55 JARROD JOHNSON MD Apr 28, 2024 15:46
[2024-04-28] MEDS: SODIUM BICARB 50mEq/50ml Vial 50 ML in SOD CHL 0.45% 1,000 ML IV SCH (16:00)
[2024-04-28] MEDS: DOPamine 1600MCG/ML D5W 250 ML IV SCH (16:31)
--- NOTE | 2024-04-28 17:06 | DVHPN2 ---
Progress Note - Dictate Date Seen: Apr 28, 2024 Medical Necessity Reason Pt with a Central, PICC or Fol: Yes The following are medically ne: Central Line, PICC Line, Celaya Catheter Reason for celaya catheter: Strict I&O Subjective Patient was seen and valuated in follow up in the ICU. Patient is intubated and sedated on ventilator. 60% FiO2. HGB 9.7, HCT 29. BUN 75, PLUMBING AND HEATING MECHANIC 2.30. Chest x-ray shows left basilar atelectasis, stable left pleural effusion, small. vital signs Vital Sign Date Time Temp Pulse Resp B/P (MAP) Pulse Ox O2 Delivery O2 Flow Rate FiO2 04/28/24 16:31 103/49 04/28/24 15:55 88 20 100 60 04/28/24 12:45 98.1 208.6 04/28/24 08:00 Mechanical Ventilator+ Total Intake and Output 04/27/24 04/27/24 04/28/24 15:00 23:00 07:00 Intake Total 175.375 ml 221.000 ml 381.000 ml Output Total 125 ml 95 ml Balance 175.375 ml 96.000 ml 286.000 ml medications Current Medications Medications Dose Ordered Sig/Gus Route Start Time Stop Time Status Last Admin Dose Admin Diagnostic Test (Pha) 1 strip IQ4HR 04/08/24 04:00 04/28/24 13:48 1 STRIP Dextrose 50 ml UD PRN IV 04/08/24 00:15 04/13/24 10:15 50 ML Pantoprazole Sodium 40 mg DAILY IV 04/09/24 08:00 04/28/24 09:56 40 MG Vancomycin HCl 0 ml @ 0 mls/hr UD IV 04/13/24 15:15 Midazolam HCl 50 ml @ 1 mls/hr Q24H IV 04/13/24 15:45 04/13/24 16:44 1 MLS/HR Enteral Nutritional Formula 1,000 ml 30ML/HR GT 04/15/24 08:45 04/28/24 09:41 1,000 ML Artificial Tears 1 drop Q6HP PRN EACHEYE 04/15/24 09:00 Insulin Human Regular HOLD INSULIN FOR BL... IQ4HR SC 04/18/24 16:00 04/27/24 01:20 4 UNITS Norepinephrine Bitartrate 250 ml @ 1.875 mls/ hr Q24H IV 04/20/24 16:15 04/27/24 17:32 9.375 MLS/HR Docusate Sodium 100 mg BID GT 04/22/24 10:00 04/28/24 09:56 100 MG Meropenem 50 ml @ 17 mls/hr Q12HR IV 04/22/24 22:00 04/28/24 09:58 17 MLS/HR Fentanyl Citrate 250 ml @ 2.5 mls/hr Q24H IV 04/22/24 23:20 04/27/24 05:35 5 MLS/HR Bumetanide 12.5 mg/Miscellaneous 50 ml @ 2 mls/hr Q24H IV 04/25/24 14:45 04/28/24 06:38 2 MLS/HR Dopamine HCl/ Dextrose 250 ml @ 4.778 mls/ hr Q24H IV 04/28/24 15:45 04/28/24 16:31 4.778 MLS/HR Sodium Bicarbonate 50 ml/ Sodium Chloride 1,050 ml @ 70 mls/hr Q15H IV 04/28/24 15:45 objective GENERAL: Intubated on ventilator. LUNGS: Decreased breath sounds. CARDIOVASCULAR: Heart sounds are good. ABDOMEN: Soft. EXT: +1 pitting edema. laboratory and microbiology Laboratory Tests 04/28/24 04:54 Test 04/28/24 04:54 Range/Units Serum Glucose 192 H 74-106 mg/dL Problem List Questionable atrial fibrillation (takes Eliquis at home). Coronary artery disease status post triple-vessel CABG. Acute on chronic HFrEF, NYHA class III. Sepsis. Hypertension. Hyperlipidemia. CVA with right-sided deficit. Chronic kidney disease. Type 2 diabetes mellitus. Transaminitis. Anemia. Osteoporosis. Dementia. Bed-bound. Assessment/Plan Continued all current supportive medical care. IV antibiotics as ordered. GI prophylactics. Vasopressors for hemodynamic support. Additional plan as per the hospital course. Critical care time of 45 minutes provided to include time spent evaluation of patient at bedside, when appropriate patient/family education for diagnosis, treatment plan, review of pertinent medical information and discussion of care with specialty providers and PCP. Mechanical ventilator parameters, treatment and adjustments have personally been reviewed by me and treatment plan by podiatry professor has also been reviewed. Dietary Evaluation Review Recommendations by RD: Protein Supplementation Comments: 1) If NPO > 7 days, consider EN/TPN to meet at least 75% of estimated daily energy needs. 2) Initiate Lucas @ 1 pk bid when medically feasible. 3) Advance diet to 60g CCHO/cardiac when medically feasible, pending EXECUTIVE MANAGER approval. 4) Continue to monitor nutrition-related labs. Expected Outcomes/Goals: 1) diet to advance 2) appetite and labs to improve 3) f/u in 3-5 days Plan discussed with: Other CC Plasma Assessment Blood Product Administration S: 12:55 JONNA MAGANA MD Apr 28, 2024 17:06
--- NOTE | 2024-04-28 22:07 | DVHPNRES ---
Progress Note Date Seen: Apr 28, 2024 Resident Creating Document: HUONG ARAUJO RESIDENT Medical Necessity Reason Pt with a Central, PICC or Fol: Yes The following are medically ne: Central Line, PICC Line, Celaya Catheter Reason for celaya catheter: Strict I&O Subjective Review of Systems pt seen and examined at bedside Patient is currently sedated and intubated, on mechanical ventilator VCAC mode, with RR 20, TV 400ml, 30%, PEEP of 5. @Norepi @fent Bumex drip Review of system could not be done as patient is sedated Objective vital signs Vital Sign Date Time Temp Pulse Resp B/P (MAP) Pulse Ox O2 Delivery O2 Flow Rate FiO2 04/28/24 20:20 104 20 92/60 (71) 99 60 04/28/24 18:30 98.6 209.5 04/28/24 18:00 Mechanical Ventilator+ Total Intake and Output 04/27/24 04/27/24 04/28/24 15:00 23:00 07:00 Intake Total 175.375 ml 221.000 ml 381.000 ml Output Total 125 ml 95 ml Balance 175.375 ml 96.000 ml 286.000 ml medications Current Medications Medications Dose Ordered Sig/Gus Route Start Time Stop Time Status Last Admin Dose Admin Diagnostic Test (Pha) 1 strip IQ4HR 04/08/24 04:00 04/28/24 19:51 1 STRIP Dextrose 50 ml UD PRN IV 04/08/24 00:15 04/13/24 10:15 50 ML Pantoprazole Sodium 40 mg DAILY IV 04/09/24 08:00 04/28/24 09:56 40 MG Vancomycin HCl 0 ml @ 0 mls/hr UD IV 04/13/24 15:15 Midazolam HCl 50 ml @ 1 mls/hr Q24H IV 04/13/24 15:45 04/13/24 16:44 1 MLS/HR Enteral Nutritional Formula 1,000 ml 30ML/HR GT 04/15/24 08:45 04/28/24 09:41 1,000 ML Artificial Tears 1 drop Q6HP PRN EACHEYE 04/15/24 09:00 Insulin Human Regular HOLD INSULIN FOR BL... IQ4HR SC 04/18/24 16:00 04/27/24 01:20 4 UNITS Norepinephrine Bitartrate 250 ml @ 1.875 mls/ hr Q24H IV 04/20/24 16:15 04/28/24 17:09 9.375 MLS/HR Docusate Sodium 100 mg BID GT 04/22/24 10:00 04/28/24 09:56 100 MG Meropenem 50 ml @ 17 mls/hr Q12HR IV 04/22/24 22:00 04/28/24 09:58 17 MLS/HR Fentanyl Citrate 250 ml @ 2.5 mls/hr Q24H IV 04/22/24 23:20 04/27/24 05:35 5 MLS/HR Bumetanide 12.5 mg/Miscellaneous 50 ml @ 2 mls/hr Q24H IV 04/25/24 14:45 04/28/24 06:38 2 MLS/HR Dopamine HCl/ Dextrose 250 ml @ 4.778 mls/ hr Q24H IV 04/28/24 15:45 04/28/24 16:31 4.778 MLS/HR Sodium Bicarbonate 50 ml/ Sodium Chloride 1,050 ml @ 70 mls/hr Q15H IV 04/28/24 15:45 04/28/24 16:00 70 MLS/HR Examination Examination General Appearance: Sedated and intubated, generalized anasarca Respiratory: Clear to auscultation, Normal air movement, mechanical ventilation Cardiovascular: Regular rate, Normal S1, Normal S2 Abdominal: Soft Extremities: Bilateral pedal pitting edema Skin: right 1st and 2nd phalanx black-bluish discoloration(improving), right hand swelling Left arm bruising, right arm oozing, petechiae on chest wall Neuro: Sedated laboratory and microbiology Laboratory Tests 04/28/24 04:54 Test 04/28/24 04:54 Range/Units Serum Glucose 192 H 74-106 mg/dL Microbiology Date/Time Source Procedure Growth Status 04/23/24 15:07 Gallbladder Fluid Gram Stain - Final Resulted 04/23/24 15:07 Gallbladder Fluid Body Fluid Culture - Preliminary Resulted 04/17/24 23:15 Voided Urine Urine Culture - Final Presumptive Nini albicans Complete 04/17/24 19:14 Blood Blood Culture - Final NO GROWTH AFTER 5 DAYS OF INCUBATION. Complete 04/17/24 17:53 Sputum Gram Stain - Final Complete 04/17/24 17:53 Respiratory Culture - Final Presumptive Nini albicans Complete 04/08/24 21:15 Nose MRSA Screen - Final Complete Labs and/or images reviewed: Labs reviewed by me, Image(s) reviewed by me Problem List/Assessment/Plan Problem List/Assessment/Plan Assessment/plan Neurology #Sedation Fentanyl #acute metabolic encephalopathy due to sepsis , ?thiamine def -head CT -thiamine IV # history of dementia ? Thiamine deficiency -thiamine replaced Cardiology #shock, septic vs cardiogenic shock -currently on norepinephrine -IV steroids,discontinued -repeat panculture #extravascular fluid overload likely oncotic albumin f/b Lasix, discontinued albumin restarted by surgical training specialist, discontinued #acute on chronic heart failure with reduced ejection fraction 40% -currently on norepinephrine #CAD s/p CABG -hold antiplatelet/anticoagulation considering low platelet count # history of DVT Repeat lower extremity Doppler venous showed evidence of nonocclusive thrombus in bilateral femoral veins -hold antiplatelet/anticoagulation considering low platelet count # superficial venous phlebitis right arm Warm compresses #Bluish black discoloration right hand , distribution of radial artery -rule out limb ischaemia -arterial duplex GI #Elevated Bilirubin, direct > indirect -obstructive pattern -liver USG -liver Doppler to rule out Budd Chiari #Transaminitis due to acalculous cholecystitis -s/p cholecystostomy tube #?Acalculous cholecystitis -IR consulted for cholecystostomy s/p cholecystectomy 04/23/24 # PUD prophylaxis -IV Protonix Infectious disease #Sepsis due to aspiration pneumonia/ infected wounds -IV antibiotics -repeat panculture #infected sacral ulcer -IV antibiotics -wound culture Respiratory #acute hypoxic respiratory failure 2/2 aspiration PNA -on mech vent #Aspiration pneumonia IV antibiotics, vanc, meropenem Nephrology #MELVINA likely ATN -monitor BMP -started on bumex drip by the surgical training specialist # hypokalemia Replaced #Hypomagnesemia -replace # hyponatremia -free water through NG tube, discontinued Hematology/oncology #Severe anemia requiring blood transfusion -ordered hemolysis workup -hematology oncology workup Haptoglobin, direct, indirect Shira test, LDH #?DIC -2 unit of FFP transfused #?HIT -4t Score of 6 -stopped Lovenox #thrombocytopenia -1 unit of PRP #Coagulopathy due to DIC -vitamin k once IV -monitor -2 units of FFP replaced Nutrition started on Nepro with Carb steady DVT prophylaxis, on hold due to low platelet count SCDs Drips Norepinephrine fentanyl Lines Right subclavian CVC Code Status discussed with the family for >23min, No compressions/no shock, modified DNR Case discussion with dr rojas Critical care time excluding procedures: 87 minutes Family at bedside explained about the condition of the patient, son decided for No compressions/no shock, modified DNR Plan discussed with: Other My Orders My Orders Orders - HUONG ARAUJO Procedure Category Date Status Time Venous Blood Gas RT 04/28/24 Logged 08:42 Dietary Evaluation Review Recommendations by RD: Protein Supplementation Comments: 1) If NPO > 7 days, consider EN/TPN to meet at least 75% of estimated daily energy needs. 2) Initiate Lucas @ 1 pk bid when medically feasible. 3) Advance diet to 60g CCHO/cardiac when medically feasible, pending LEARNING AND DEVELOPMENT ASSOCIATE approval. 4) Continue to monitor nutrition-related labs. Expected Outcomes/Goals: 1) diet to advance 2) appetite and labs to improve 3) f/u in 3-5 days CC Plasma Assessment Blood Product Administration S: 12:55 Date of Service: Apr 28, 2024 Billing Provider: FITZ ROJAS MD Common Visit Codes: 12292-NLBPYFAR CARE 30-74 MIN, 93607-MUFXZRHB CARE-EACH +30MIN HUONG ARAUJO Apr 28, 2024 22:07 FITZ ROJAS MD Apr 29, 2024 15:53
[2024-04-29] VITALS (105 sets, daily range): BP systolic 86–133; BP diastolic 31–73; PULSE 84–118; RESP 19–22; TEMP 97.3–99.3; O2SAT 98–100
[2024-04-29 05:06] LABS: Basophils # (auto) 0 10 ^3/uL (0-0.2); Eosinophils # (auto) 0 10 ^3/uL (0-0.8); Eosinophils % (auto) 0.1 % (0.0-7.0); Monocytes # (auto) 0.2 10 ^3/uL (0-1.3); Red Cell Distribution Width 16.1 % (11.8-14.3)
[2024-04-29 05:10] LABS: Basophils % (auto) 0.1 % (0.0-2.0); Hemoglobin 9.7 g/dL (12.2-16.2); Lymphocytes # (auto) 0.8 10 ^3/uL (0.4-5.4); Mean Corpuscular Hgb Conc. 33.4 g/dL (32.0-36.0); Mean Corpuscular Volume 95.8 fL (80.0-100.0); Monocytes % (auto) 2.9 % (0.0-12.0); Neutrophils # (auto) 6.7 10 ^3/uL (1.6-8.6); Neutrophils % (auto) 86.9 % (37.0-80.0); Platelet Count (auto) 57 10^3/uL (140-450); Red Blood Cells 3.03 10^6/uL (4.0-5.20); White Blood Cell 7.7 10^3/uL (4.4-10.8)
[2024-04-29 05:15] LABS: Nucleated Red Blood Cells % 3.9 %
--- NOTE | 2024-04-29 05:25 | DVH ---
CHEST RADIOGRAPH Indication: mech vent Technique: Single frontal view of the chest was obtained COMPARISON: XY CHEST PORTABLE on DOS: 04/28/24, XY CHEST PORTABLE on DOS: 04/27/24, XY CHEST PORTABLE o n DOS: 04/26/24, XY CHEST PORTABLE on DOS: 04/25/24, XY CHEST PORTABLE on DOS: 04/24/24 FINDINGS: Lines and Tubes: Median sternotomy. Endotracheal tube, enteric catheter and right central venous cat heter in satisfactory position. Lungs: Congestion Pleura: No effusion. No pneumothorax. Cardiomediastinal contours: Cardiomegaly Bones: Unremarkable IMPRESSION: Lines and tubes in satisfactory position. No significant interval change.
[2024-04-29 05:27] LABS: Alanine Aminotransferase 33 U/L (7-40); Anion Gap 15 (5-15); Calcium 9.1 mg/dL (8.7-10.4); Magnesium 2.3 mg/dL (1.6-2.6)
[2024-04-29 05:32] LABS: BUN/Creatinine Ratio 35.5 (10.0-20.0)
[2024-04-29 05:35] LABS: Alkaline Phosphatase 956 U/L (46-116); Aspartate Aminotransferase 115 U/L (13-40); Bilirubin, Total 12.2 mg/dL (0.2-1.0); Carbon Dioxide 20 mmol/L (20-31); Chloride 110 mmol/L (98-107); Glucose 225 mg/dL (74-106); Sodium 145 mmol/L (136-145); Total Protein 4.3 g/dL (5.7-8.2)
[2024-04-29 05:36] LABS: Blood Urea Nitrogen 83 mg/dL (9-23)
--- NOTE | 2024-04-29 12:25 | DVHPN2 ---
Progress Note Date Seen: Apr 29, 2024 Medical Necessity Reason Pt with a Central, PICC or Fol: Yes The following are medically ne: Central Line, PICC Line, Celaya Catheter Reason for celaya catheter: Strict I&O Subjective Other Systems: Patient seen and examined by myself today in follow-up Patient remained intubated on ventilator Objective vital signs Vital Sign Date Time Temp Pulse Resp B/P (MAP) Pulse Ox O2 Delivery O2 Flow Rate FiO2 04/29/24 12:15 98.1 101 20 95/38 (57) 99 208.6 04/29/24 12:05 40 04/28/24 20:00 Mechanical Ventilator+ Total Intake and Output 04/28/24 04/28/24 04/29/24 15:00 23:00 07:00 Intake Total 215.375 ml 1131.650 ml 953.321 ml Output Total 50 ml 85 ml Balance 215.375 ml 1081.650 ml 868.321 ml medications Current Medications Medications Dose Ordered Sig/Gus Route Start Time Stop Time Status Last Admin Dose Admin Diagnostic Test (Pha) 1 strip IQ4HR 04/08/24 04:00 04/29/24 11:53 1 STRIP Dextrose 50 ml UD PRN IV 04/08/24 00:15 04/13/24 10:15 50 ML Pantoprazole Sodium 40 mg DAILY IV 04/09/24 08:00 04/29/24 10:48 40 MG Vancomycin HCl 0 ml @ 0 mls/hr UD IV 04/13/24 15:15 Midazolam HCl 50 ml @ 1 mls/hr Q24H IV 04/13/24 15:45 04/13/24 16:44 1 MLS/HR Enteral Nutritional Formula 1,000 ml 30ML/HR GT 04/15/24 08:45 04/28/24 09:41 1,000 ML Artificial Tears 1 drop Q6HP PRN EACHEYE 04/15/24 09:00 Insulin Human Regular HOLD INSULIN FOR BL... IQ4HR SC 04/18/24 16:00 04/29/24 11:54 4 UNITS Norepinephrine Bitartrate 250 ml @ 1.875 mls/ hr Q24H IV 04/20/24 16:15 04/29/24 07:59 13.125 MLS/HR Docusate Sodium 100 mg BID GT 04/22/24 10:00 04/29/24 10:48 100 MG Meropenem 50 ml @ 17 mls/hr Q12HR IV 04/22/24 22:00 04/29/24 10:48 17 MLS/HR Fentanyl Citrate 250 ml @ 2.5 mls/hr Q24H IV 04/22/24 23:20 04/29/24 02:40 5 MLS/HR Bumetanide 12.5 mg/Miscellaneous 50 ml @ 2 mls/hr Q24H IV 04/25/24 14:45 04/28/24 06:38 2 MLS/HR Dopamine HCl/ Dextrose 250 ml @ 4.778 mls/ hr Q24H IV 04/28/24 15:45 04/28/24 16:31 4.778 MLS/HR Sodium Bicarbonate 50 ml/ Sodium Chloride 1,050 ml @ 70 mls/hr Q15H IV 04/28/24 15:45 04/29/24 07:58 70 MLS/HR Examination: LUNGS:Normal, CVS:Normal, MSK:Normal laboratory and microbiology Laboratory Tests 04/29/24 04:44 Test 04/29/24 04:44 Range/Units Serum Glucose 225 H 74-106 mg/dL Microbiology Date/Time Source Procedure Growth Status 04/23/24 15:07 Gallbladder Fluid Gram Stain - Final Complete 04/23/24 15:07 Gallbladder Fluid Body Fluid Culture - Final Complete 04/17/24 23:15 Voided Urine Urine Culture - Final Presumptive Nini albicans Complete 04/17/24 19:14 Blood Blood Culture - Final NO GROWTH AFTER 5 DAYS OF INCUBATION. Complete 04/17/24 17:53 Sputum Gram Stain - Final Complete 04/17/24 17:53 Respiratory Culture - Final Presumptive Nini albicans Complete 04/08/24 21:15 Nose MRSA Screen - Final Complete Problem List/Assessment/Plan Problem List/Assessment/Plan MELVINA secondary to hemodynamic mediated Acute respiratory failure, intubated on ventilator Septic shock Metabolic acidosis Urinary tract infection Sacral decubitus ulcers Hypoalbuminemia /transaminitis hypernatremia hypokalemia REC: Kidney function slightly worsened today ^Bumex drip IV Add dopamine low dose IVF 1/2 NS with sodium bicarb Renally dose antibiotics to GFR not a fpc candidate for dialysis--informed son pt is a candidate for comfort care /hospice--recommend goals of care discussion Plan discussed with: Other (Nurse) My Orders My Orders Orders - JARROD JOHNSON MD Procedure Category Date Status Time Dopamine 1600mcg/Ml PHA 04/28/24 In Process D5W 15:45 Sod Chl 0.45% PHA 04/28/24 In Process (Sodi... W/Sodium 15:45 Dietary Evaluation Review Recommendations by RD: Protein Supplementation Comments: 1) If NPO > 7 days, consider EN/TPN to meet at least 75% of estimated daily energy needs. 2) Initiate Lucas @ 1 pk bid when medically feasible. 3) Advance diet to 60g CCHO/cardiac when medically feasible, pending CAR DRIVER approval. 4) Continue to monitor nutrition-related labs. Expected Outcomes/Goals: 1) diet to advance 2) appetite and labs to improve 3) f/u in 3-5 days CC Plasma Assessment Blood Product Administration S: 12:55 JARROD JOHNSON MD Apr 29, 2024 12:25
[2024-04-29] MEDS: BUMETANIDE INJECTION 25 MG in GIVE UN-DILUTED 0 ML IV SCH (12:30)
--- NOTE | 2024-04-29 18:39 | DVHPNRES ---
Progress Note Date Seen: Apr 29, 2024 Resident Creating Document: HUONG ARAUJO RESIDENT Medical Necessity Reason Pt with a Central, PICC or Fol: Yes The following are medically ne: Central Line, PICC Line, Celaya Catheter Reason for celaya catheter: Strict I&O Subjective Review of Systems pt seen and examined at bedside Patient is currently sedated and intubated, on mechanical ventilator @Norepi @fent Bumex drip bicarb drip dopamine drip Review of system could not be done as patient is sedated Objective vital signs Vital Sign Date Time Temp Pulse Resp B/P (MAP) Pulse Ox O2 Delivery O2 Flow Rate FiO2 04/29/24 16:45 97.9 102 20 100/52 (68) 99 208.2 04/29/24 16:08 40 04/29/24 08:00 Mechanical Ventilator+ Total Intake and Output 04/28/24 04/28/24 04/29/24 15:00 23:00 07:00 Intake Total 215.375 ml 1131.650 ml 1048.224 ml Output Total 50 ml 85 ml Balance 215.375 ml 1081.650 ml 963.224 ml medications Current Medications Medications Dose Ordered Sig/Gus Route Start Time Stop Time Status Last Admin Dose Admin Diagnostic Test (Pha) 1 strip IQ4HR 04/08/24 04:00 04/29/24 16:13 1 STRIP Dextrose 50 ml UD PRN IV 04/08/24 00:15 04/13/24 10:15 50 ML Pantoprazole Sodium 40 mg DAILY IV 04/09/24 08:00 04/29/24 10:48 40 MG Vancomycin HCl 0 ml @ 0 mls/hr UD IV 04/13/24 15:15 Midazolam HCl 50 ml @ 1 mls/hr Q24H IV 04/13/24 15:45 04/13/24 16:44 1 MLS/HR Enteral Nutritional Formula 1,000 ml 30ML/HR GT 04/15/24 08:45 04/28/24 09:41 1,000 ML Artificial Tears 1 drop Q6HP PRN EACHEYE 04/15/24 09:00 Insulin Human Regular HOLD INSULIN FOR BL... IQ4HR SC 04/18/24 16:00 04/29/24 16:20 6 UNITS Norepinephrine Bitartrate 250 ml @ 1.875 mls/ hr Q24H IV 04/20/24 16:15 04/29/24 07:59 13.125 MLS/HR Docusate Sodium 100 mg BID GT 04/22/24 10:00 04/29/24 10:48 100 MG Meropenem 50 ml @ 17 mls/hr Q12HR IV 04/22/24 22:00 04/29/24 10:48 17 MLS/HR Fentanyl Citrate 250 ml @ 2.5 mls/hr Q24H IV 04/22/24 23:20 04/29/24 02:40 5 MLS/HR Dopamine HCl/ Dextrose 250 ml @ 4.778 mls/ hr Q24H IV 04/28/24 15:45 04/28/24 16:31 4.778 MLS/HR Sodium Bicarbonate 50 ml/ Sodium Chloride 1,050 ml @ 70 mls/hr Q15H IV 04/28/24 15:45 04/29/24 07:58 70 MLS/HR Bumetanide 25 mg/ Miscellaneous 100 ml @ 4 mls/hr Q24H IV 04/29/24 12:30 04/29/24 12:30 4 MLS/HR Examination Examination General Appearance: Sedated and intubated, generalized anasarca Respiratory: Clear to auscultation, Normal air movement, mechanical ventilation Cardiovascular: Regular rate, Normal S1, Normal S2 Abdominal: Soft Extremities: Bilateral pedal pitting edema Skin: right 1st and 2nd phalanx black-bluish discoloration(improving), right hand swelling Left arm bruising, right arm oozing, petechiae on chest wall Neuro: Sedated laboratory and microbiology Laboratory Tests 04/29/24 04:44 Test 04/29/24 04:44 Range/Units Serum Glucose 225 H 74-106 mg/dL Microbiology Date/Time Source Procedure Growth Status 04/23/24 15:07 Gallbladder Fluid Gram Stain - Final Complete 04/23/24 15:07 Gallbladder Fluid Body Fluid Culture - Final Complete 04/17/24 23:15 Voided Urine Urine Culture - Final Presumptive Nini albicans Complete 04/17/24 19:14 Blood Blood Culture - Final NO GROWTH AFTER 5 DAYS OF INCUBATION. Complete 04/17/24 17:53 Sputum Gram Stain - Final Complete 04/17/24 17:53 Respiratory Culture - Final Presumptive Nini albicans Complete 12/31/24 21:15 Nose MRSA Screen - Final Complete Labs and/or images reviewed: Labs reviewed by me, Image(s) reviewed by me Problem List/Assessment/Plan Problem List/Assessment/Plan Assessment/plan Neurology #Sedation Fentanyl #acute metabolic encephalopathy due to sepsis , ?thiamine def -head CT -thiamine IV # history of dementia ? Thiamine deficiency -thiamine replaced Cardiology #shock, septic vs cardiogenic shock -currently on norepinephrine -IV steroids,discontinued -repeat panculture #extravascular fluid overload likely oncotic albumin f/b Lasix, discontinued albumin restarted by offshoring manager, discontinued albumin once #acute on chronic heart failure with reduced ejection fraction 40% -currently on norepinephrine #CAD s/p CABG -hold antiplatelet/anticoagulation considering low platelet count # history of DVT Repeat lower extremity Doppler venous showed evidence of nonocclusive thrombus in bilateral femoral veins -hold antiplatelet/anticoagulation considering low platelet count # superficial venous phlebitis right arm Warm compresses #Bluish black discoloration right hand , distribution of radial artery -rule out limb ischaemia -arterial duplex GI #Elevated Bilirubin, direct > indirect -obstructive pattern -liver USG -liver Doppler to rule out Budd Chiari #Transaminitis due to acalculous cholecystitis -s/p cholecystectomy 04/23/24 -monitor liver usg for checking CBD dilation #?Acalculous cholecystitis -IR consulted for cholecystostomy s/p cholecystectomy 04/23/24 # PUD prophylaxis -IV Protonix Infectious disease #Sepsis due to aspiration pneumonia/ infected wounds -IV antibiotics -repeat panculture change celaya catheter repeat urine culture #infected sacral ulcer -IV antibiotics -wound culture Respiratory #acute hypoxic respiratory failure 2/2 aspiration PNA -on mech vent #Aspiration pneumonia IV antibiotics, vanc, meropenem Nephrology #MELVINA likely ATN -monitor BMP -started on bumex drip by the offshoring manager -started on bicarb and dopamine drip by the offshoring manager # hypokalemia Replaced #Hypomagnesemia -replace # hyponatremia -free water through NG tube, discontinued Hematology/oncology #Severe anemia requiring blood transfusion -ordered hemolysis workup -hematology oncology workup Haptoglobin, direct, indirect Shira test, LDH #?DIC -2 unit of FFP transfused #?HIT -4t Score of 6 -stopped Lovenox #thrombocytopenia -1 unit of PRP #Coagulopathy due to DIC -vitamin k once IV -monitor -2 units of FFP replaced Nutrition started on Nepro with Carb steady DVT prophylaxis, on hold due to low platelet count SCDs Drips Norepinephrine fentanyl bicarb bumex dopamine Lines Right subclavian CVC Code Status discussed with the family for >23min, No compressions/no shock, modified DNR Case discussion with dr rojas Critical care time excluding procedures: 65 minutes Family at bedside explained about the condition of the patient. Plan discussed with: Other My Orders My Orders Orders - HUONG ARAUJO RESIDENT Procedure Category Date Status Time Chest Portable XY 04/29/24 Resulted 04:00 Code Status CODE 04/29/24 Transmitted 08:40 Venous Blood Gas RT 04/29/24 Logged 09:47 Ok To Change Celaya ORDERS 04/29/24 Transmitted 17:11 Urine Bacterial ROSS 04/29/24 Uncollected Culture 17:11 Urinalysis LAB 04/29/24 Logged 17:11 Abdomen Limited US 04/29/24 Logged 17:11 Dietary Evaluation Review Recommendations by RD: Protein Supplementation Comments: 1) If NPO > 7 days, consider EN/TPN to meet at least 75% of estimated daily energy needs. 2) Initiate Lucas @ 1 pk bid when medically feasible. 3) Advance diet to 60g CCHO/cardiac when medically feasible, pending INJECTION MOLDING MACHINE OFFBEARER approval. 4) Continue to monitor nutrition-related labs. Expected Outcomes/Goals: 1) diet to advance 2) appetite and labs to improve 3) f/u in 3-5 days CC Plasma Assessment Blood Product Administration S: 12:55 Date of Service: Apr 29, 2024 Billing Provider: FITZ ROJAS MD Common Visit Codes: [id number] CARE 30-74 MIN HUONG ARAUJO Apr 29, 2024 18:39 FITZ ROJAS MD Apr 30, 2024 14:52
[2024-04-29] MEDS: ALBUMIN 25% 100 ML IV ONE (18:46)
--- NOTE | 2024-04-29 21:47 | DVH ---
INDICATION: check for cbd dilation TECHNIQUE: Multiple real-time sonographic images of the abdomen were obtained. COMPARISON: US GALLBLADDER on DOS: 04/22/24, US LIVER on DOS: 04/21/24 FINDINGS: . The common duct measures 0.75 cm and is unremarkable. No pericholecystic fluid is noted. IMPRESSION: 1. Common bile duct is dilated measures 7.5 mm
--- NOTE | 2024-04-29 22:40 | DVHPN2 ---
Progress Note - Dictate Date Seen: Apr 29, 2024 Medical Necessity Reason Pt with a Central, PICC or Fol: Yes The following are medically ne: Central Line, PICC Line, Celaya Catheter Reason for celaya catheter: Strict I&O Subjective Patient was seen and valuated in follow up in the ICU. Patient is intubated and sedated on ventilator. 60% FiO2. BUN 83, Miller First 2.34. Alk phos 956. Abdominal US shows the common bile duct is dilated measures 7.5 mm. Chest x-ray shows congestion and cardiomegaly. vital signs Vital Sign Date Time Temp Pulse Resp B/P (MAP) Pulse Ox O2 Delivery O2 Flow Rate FiO2 04/29/24 22:07 86 20 112/57 (75) 99 30 04/29/24 20:30 97.5 207.5 04/29/24 18:40 Mechanical Ventilator Total Intake and Output 04/28/24 04/28/24 04/29/24 15:00 23:00 07:00 Intake Total 215.375 ml 1131.650 ml 1048.224 ml Output Total 50 ml 85 ml Balance 215.375 ml 1081.650 ml 963.224 ml medications Current Medications Medications Dose Ordered Sig/Gus Route Start Time Stop Time Status Last Admin Dose Admin Diagnostic Test (Pha) 1 strip IQ4HR 04/08/24 04:00 04/29/24 20:00 1 STRIP Dextrose 50 ml UD PRN IV 04/08/24 00:15 04/13/24 10:15 50 ML Pantoprazole Sodium 40 mg DAILY IV 04/09/24 08:00 04/29/24 10:48 40 MG Vancomycin HCl 0 ml @ 0 mls/hr UD IV 04/13/24 15:15 Midazolam HCl 50 ml @ 1 mls/hr Q24H IV 04/13/24 15:45 04/13/24 16:44 1 MLS/HR Enteral Nutritional Formula 1,000 ml 30ML/HR GT 04/15/24 08:45 04/29/24 22:23 1,000 ML Artificial Tears 1 drop Q6HP PRN EACHEYE 04/15/24 09:00 Insulin Human Regular HOLD INSULIN FOR BL... IQ4HR SC 04/18/24 16:00 04/29/24 21:13 4 UNITS Norepinephrine Bitartrate 250 ml @ 1.875 mls/ hr Q24H IV 04/20/24 16:15 04/29/24 07:59 13.125 MLS/HR Docusate Sodium 100 mg BID GT 04/22/24 10:00 04/29/24 22:23 100 MG Meropenem 50 ml @ 17 mls/hr Q12HR IV 04/22/24 22:00 04/29/24 22:23 17 MLS/HR Fentanyl Citrate 250 ml @ 2.5 mls/hr Q24H IV 04/22/24 23:20 04/29/24 02:40 5 MLS/HR Dopamine HCl/ Dextrose 250 ml @ 4.778 mls/ hr Q24H IV 04/28/24 15:45 04/28/24 16:31 4.778 MLS/HR Sodium Bicarbonate 50 ml/ Sodium Chloride 1,050 ml @ 70 mls/hr Q15H IV 04/28/24 15:45 04/29/24 22:24 70 MLS/HR Bumetanide 25 mg/ Miscellaneous 100 ml @ 4 mls/hr Q24H IV 04/29/24 12:30 04/29/24 12:30 4 MLS/HR objective GENERAL: Intubated on ventilator. LUNGS: Decreased breath sounds. CARDIOVASCULAR: Heart sounds are good. ABDOMEN: Soft. EXT: +1 pitting edema. laboratory and microbiology Laboratory Tests 04/29/24 04:44 Test 04/29/24 04:44 Range/Units Serum Glucose 225 H 74-106 mg/dL Problem List Questionable atrial fibrillation (takes Eliquis at home). Coronary artery disease status post triple-vessel CABG. Acute on chronic HFrEF, NYHA class III. Sepsis. Hypertension. Hyperlipidemia. CVA with right-sided deficit. Chronic kidney disease. Type 2 diabetes mellitus. Transaminitis. Anemia. Osteoporosis. Dementia. Bed-bound. Assessment/Plan Continued all current supportive medical care. IV antibiotics as ordered. GI prophylactics. Vasopressors for hemodynamic support. Additional plan as per the hospital course. Critical care time of 45 minutes provided to include time spent evaluation of patient at bedside, when appropriate patient/family education for diagnosis, treatment plan, review of pertinent medical information and discussion of care with specialty providers and PCP. Mechanical ventilator parameters, treatment and adjustments have personally been reviewed by me and treatment plan by tool lathe operator has also been reviewed. Dietary Evaluation Review Recommendations by RD: Protein Supplementation Comments: 1) If NPO > 7 days, consider EN/TPN to meet at least 75% of estimated daily energy needs. 2) Initiate Lucas @ 1 pk bid when medically feasible. 3) Advance diet to 60g CCHO/cardiac when medically feasible, pending MANAGER MARKETING SALES approval. 4) Continue to monitor nutrition-related labs. Expected Outcomes/Goals: 1) diet to advance 2) appetite and labs to improve 3) f/u in 3-5 days Plan discussed with: Other CC Plasma Assessment Blood Product Administration S: 12:55 JONNA MAGANA MD Apr 29, 2024 22:40
[2024-04-30] VITALS (111 sets, daily range): BP systolic 1–143; BP diastolic 34–80; PULSE 85–123; RESP 14–23; TEMP 96.6–99.7; O2SAT 94–100
--- NOTE | 2024-04-30 05:14 | DVH ---
CHEST RADIOGRAPH Indication: mech vent Technique: Single frontal view of the chest was obtained COMPARISON: XY CHEST PORTABLE on DOS: 04/29/24, XY CHEST PORTABLE on DOS: 04/28/24, XY CHEST PORTABLE o n DOS: 04/27/24, XY CHEST PORTABLE on DOS: 04/26/24, XY CHEST PORTABLE on DOS: 04/25/24 FINDINGS: Lines and Tubes: Endotracheal tube, enteric catheter, right central venous catheter in satisfactory p osition. Median sternotomy. Lungs: Multifocal airspace disease. Pleura: No effusion. No pneumothorax. Cardiomediastinal contours: Unremarkable Bones: Unremarkable IMPRESSION: Lines and tubes in satisfactory position. No significant interval change.
[2024-04-30 05:17] LABS: Basophils # (auto) 0 10 ^3/uL (0-0.2); Basophils % (auto) 0.3 % (0.0-2.0); Eosinophils # (auto) 0 10 ^3/uL (0-0.8); Eosinophils % (auto) 0.3 % (0.0-7.0); Hematocrit 25.3 % (36.0-46.0); Hemoglobin 8.2 g/dL (12.2-16.2); Lymphocytes # (auto) 0.4 10 ^3/uL (0.4-5.4); Lymphocytes % (auto) 8.8 % (10.0-50.0); Mean Corpuscular Hemoglobin 31.3 pg (28.0-32.0); Mean Corpuscular Hgb Conc. 32.6 g/dL (32.0-36.0); Mean Corpuscular Volume 96.1 fL (80.0-100.0); Monocytes # (auto) 0.1 10 ^3/uL (0-1.3); Monocytes % (auto) 1.4 % (0.0-12.0); Neutrophils # (auto) 4.1 10 ^3/uL (1.6-8.6); Neutrophils % (auto) 89.2 % (37.0-80.0); Platelet Count (auto) 43 10^3/uL (140-450); Red Blood Cells 2.63 10^6/uL (4.0-5.20); Red Cell Distribution Width 16.3 % (11.8-14.3); White Blood Cell 4.6 10^3/uL (4.4-10.8)
[2024-04-30 05:18] LABS: Nucleated Red Blood Cells % 3.3 %
[2024-04-30 05:24] LABS: Urine Bacteria FEW /hpf (None Seen); Urine Blood 1+ /uL (Negative); Urine Budding Yeast MODERATE /hpf (None Seen); Urine Clarity Turbid (Clear); Urine Color Yellow (Yellow); Urine Hyaline Cast FEW /lpf (0 - 2); Urine Mucus FEW (None Seen); Urine Protein, UAD 1+ (Negative); Urine Specific Gravity 1.011 (1.001-1.035); Urine Squamous Epithelial Cell FEW /hpf (<5); Urine Urobilinogen 3 mg/dL (Negative); Urine WBC 103 /HPF (0-5); Urine WBC Clumps PRESENT /hpf (None Seen)
[2024-04-30 05:35] LABS: Alanine Aminotransferase 19 U/L (7-40); Anion Gap 12 (5-15); Calcium 9.5 mg/dL (8.7-10.4); Carbon Dioxide 22 mmol/L (20-31); Magnesium 2.2 mg/dL (1.6-2.6)
[2024-04-30 05:48] LABS: Albumin 2.4 g/dL (3.2-4.8); Alkaline Phosphatase 570 U/L (46-116); Aspartate Aminotransferase 72 U/L (13-40); BUN/Creatinine Ratio 36.4 (10.0-20.0); Bilirubin, Total 12.4 mg/dL (0.2-1.0); Blood Urea Nitrogen 79 mg/dL (9-23); Chloride 111 mmol/L (98-107); Glucose 159 mg/dL (74-106); Potassium 2.8 mmol/L (3.5-5.1); Sodium 145 mmol/L (136-145); Total Protein 4.6 g/dL (5.7-8.2)
[2024-04-30] MEDS: POTASSIUM CHL 20MEQ/100ML 100 ML IV SCH (06:54)
[2024-04-30] MEDS ORDERED: PHENYLEPHRINE INJ 80 MG in SODIUM CHL 0.9% 242 ML IV SCH (08:15)
--- NOTE | 2024-04-30 12:03 | DVHPN2 ---
Progress Note Date Seen: Apr 30, 2024 Medical Necessity Reason Pt with a Central, PICC or Fol: Yes The following are medically ne: Central Line, PICC Line, Celaya Catheter Reason for celaya catheter: Strict I&O Subjective Review of Systems: RESPIRATORY:Abnormal Other Systems: Patient seen and examined by myself today in follow-up Patient remained intubated on ventilator Objective vital signs Vital Sign Date Time Temp Pulse Resp B/P (MAP) Pulse Ox O2 Delivery O2 Flow Rate FiO2 04/30/24 11:31 83/34 04/30/24 09:59 106 20 96 30 04/30/24 09:00 98.2 208.8 04/30/24 06:00 Mechanical Ventilator+ Total Intake and Output 04/29/24 04/29/24 04/30/24 15:00 23:00 07:00 Intake Total 804.974 ml 1087.224 ml 1075.849 ml Output Total 170 ml 210 ml Balance 804.974 ml 917.224 ml 865.849 ml medications Current Medications Medications Dose Ordered Sig/Gus Route Start Time Stop Time Status Last Admin Dose Admin Diagnostic Test (Pha) 1 strip IQ4HR 04/08/24 04:00 04/30/24 04:37 1 STRIP Dextrose 50 ml UD PRN IV 04/08/24 00:15 04/13/24 10:15 50 ML Pantoprazole Sodium 40 mg DAILY IV 04/09/24 08:00 04/30/24 11:21 40 MG Vancomycin HCl 0 ml @ 0 mls/hr UD IV 04/13/24 15:15 Midazolam HCl 50 ml @ 1 mls/hr Q24H IV 04/13/24 15:45 04/13/24 16:44 1 MLS/HR Enteral Nutritional Formula 1,000 ml 30ML/HR GT 04/15/24 08:45 04/29/24 22:23 1,000 ML Artificial Tears 1 drop Q6HP PRN EACHEYE 04/15/24 09:00 Insulin Human Regular HOLD INSULIN FOR BL... IQ4HR SC 04/18/24 16:00 04/30/24 04:38 4 UNITS Norepinephrine Bitartrate 250 ml @ 1.875 mls/ hr Q24H IV 04/20/24 16:15 04/30/24 06:06 9.375 MLS/HR Docusate Sodium 100 mg BID GT 04/22/24 10:00 04/30/24 11:21 100 MG Meropenem 50 ml @ 17 mls/hr Q12HR IV 04/22/24 22:00 04/30/24 11:21 17 MLS/HR Fentanyl Citrate 250 ml @ 2.5 mls/hr Q24H IV 04/22/24 23:20 04/29/24 02:40 5 MLS/HR Dopamine HCl/ Dextrose 250 ml @ 4.778 mls/ hr Q24H IV 04/28/24 15:45 04/30/24 11:31 4.778 MLS/HR Sodium Bicarbonate 50 ml/ Sodium Chloride 1,050 ml @ 70 mls/hr Q15H IV 04/28/24 15:45 04/29/24 22:24 70 MLS/HR Bumetanide 25 mg/ Miscellaneous 100 ml @ 4 mls/hr Q24H IV 04/29/24 12:30 04/30/24 00:04 4 MLS/HR Phenylephrine HCl 80 mg/Sodium Chloride 250 ml @ 7.5 mls/hr Q24H IV 04/30/24 08:15 Cancel Examination: LUNGS:Normal, CVS:Normal, MSK:Normal laboratory and microbiology Laboratory Tests 04/30/24 05:00 Test 04/30/24 05:00 Range/Units Serum Glucose 159 H 74-106 mg/dL Microbiology Date/Time Source Procedure Growth Status 04/23/24 15:07 Gallbladder Fluid Gram Stain - Final Complete 04/23/24 15:07 Gallbladder Fluid Body Fluid Culture - Final Complete 04/17/24 23:15 Voided Urine Urine Culture - Final Presumptive Nini albicans Complete 04/17/24 19:14 Blood Blood Culture - Final NO GROWTH AFTER 5 DAYS OF INCUBATION. Complete 04/17/24 17:53 Sputum Gram Stain - Final Complete 04/17/24 17:53 Respiratory Culture - Final Presumptive Nini albicans Complete 04/08/24 21:15 Nose MRSA Screen - Final Complete Problem List/Assessment/Plan Problem List/Assessment/Plan MELVINA secondary to hemodynamic mediated Acute respiratory failure, intubated on ventilator Septic shock Metabolic acidosis Urinary tract infection Sacral decubitus ulcers Hypoalbuminemia /transaminitis hypernatremia hypokalemia REC: Kidney function slightly improved today ^Bumex drip IV Add dopamine low dose IVF 2 NS with sodium bicarb at 100 cc/hour Renally dose antibiotics to GFR not a shelter candidate for dialysis--informed son pt is a candidate for comfort care /hospice--recommend goals of care discussion Plan discussed with: Other (Nurse) My Orders My Orders Orders - JARROD JOHNOSN MD Procedure Category Date Status Time Give Un-Diluted PHA 04/29/24 In Process (Gi... W/Bumetanide 12:30 1/2nsw Sodium PHA 04/30/24 Verified Bicarbonate Drip 12:00 Dietary Evaluation Review Recommendations by RD: Protein Supplementation Comments: 1) If NPO > 7 days, consider EN/TPN to meet at least 75% of estimated daily energy needs. 2) Initiate Lucas @ 1 pk bid when medically feasible. 3) Advance diet to 60g CCHO/cardiac when medically feasible, pending TEEN COUNSELOR approval. 4) Continue to monitor nutrition-related labs. Expected Outcomes/Goals: 1) diet to advance 2) appetite and labs to improve 3) f/u in 3-5 days CC Plasma Assessment Blood Product Administration S: 12:55 JARROD JOHNSON MD Apr 30, 2024 12:03
[2024-04-30] MEDS: SODIUM BICARB 50mEq/50ml Vial 50 ML in SOD CHL 0.45% 1,000 ML IV SCH (15:27)
--- NOTE | 2024-04-30 18:56 | DVHPNRES ---
Progress Note Date Seen: Apr 30, 2024 Resident Creating Document: HUONG ARAUJO RESIDENT Medical Necessity Reason Pt with a Central, PICC or Fol: Yes The following are medically ne: Central Line, PICC Line, Celaya Catheter Reason for celaya catheter: Strict I&O Subjective Review of Systems pt seen and examined at bedside Patient is currently sedated and intubated, on mechanical ventilator @Norepi @fent Bumex drip bicarb drip dopamine drip Review of system could not be done as patient is sedated Objective vital signs Vital Sign Date Time Temp Pulse Resp B/P (MAP) Pulse Ox O2 Delivery O2 Flow Rate FiO2 04/30/24 18:37 125/54 04/30/24 17:15 99.1 109 20 97 210.4 04/30/24 16:00 40 04/30/24 16:00 Mechanical Ventilator+ Total Intake and Output 04/29/24 04/29/24 04/30/24 15:00 23:00 07:00 Intake Total 804.974 ml 1087.224 ml 1075.849 ml Output Total 170 ml 210 ml Balance 804.974 ml 917.224 ml 865.849 ml medications Current Medications Medications Dose Ordered Sig/Gus Route Start Time Stop Time Status Last Admin Dose Admin Diagnostic Test (Pha) 1 strip IQ4HR 04/08/24 04:00 04/30/24 16:00 1 STRIP Dextrose 50 ml UD PRN IV 04/08/24 00:15 04/13/24 10:15 50 ML Pantoprazole Sodium 40 mg DAILY IV 04/09/24 08:00 04/30/24 11:21 40 MG Vancomycin HCl 0 ml @ 0 mls/hr UD IV 04/13/24 15:15 Midazolam HCl 50 ml @ 1 mls/hr Q24H IV 04/13/24 15:45 04/13/24 16:44 1 MLS/HR Enteral Nutritional Formula 1,000 ml 30ML/HR GT 04/15/24 08:45 04/29/24 22:23 1,000 ML Artificial Tears 1 drop Q6HP PRN EACHEYE 04/15/24 09:00 Insulin Human Regular HOLD INSULIN FOR BL... IQ4HR SC 04/18/24 16:00 04/30/24 04:38 4 UNITS Norepinephrine Bitartrate 250 ml @ 1.875 mls/ hr Q24H IV 04/20/24 16:15 04/30/24 16:59 30 MLS/HR Docusate Sodium 100 mg BID GT 04/22/24 10:00 04/30/24 11:21 100 MG Meropenem 50 ml @ 17 mls/hr Q12HR IV 04/22/24 22:00 04/30/24 11:21 17 MLS/HR Fentanyl Citrate 250 ml @ 2.5 mls/hr Q24H IV 04/22/24 23:20 04/29/24 02:40 5 MLS/HR Dopamine HCl/ Dextrose 250 ml @ 4.778 mls/ hr Q24H IV 04/28/24 15:45 04/30/24 11:31 4.778 MLS/HR Bumetanide 25 mg/ Miscellaneous 100 ml @ 4 mls/hr Q24H IV 04/29/24 12:30 04/30/24 18:37 4 MLS/HR Phenylephrine HCl 80 mg/Sodium Chloride 250 ml @ 7.5 mls/hr Q24H IV 04/30/24 08:15 Cancel Sodium Bicarbonate 50 ml/ Sodium Chloride 1,050 ml @ 100 mls/hr [id number] IV 04/30/24 12:00 04/30/24 15:27 100 MLS/HR Examination Examination General Appearance: Sedated and intubated, generalized anasarca Respiratory: Clear to auscultation, Normal air movement, mechanical ventilation Cardiovascular: Regular rate, Normal S1, Normal S2 Abdominal: Soft Extremities: Bilateral pedal pitting edema Skin: right 1st and 2nd phalanx black-bluish discoloration(improving), right hand swelling Left arm bruising, right arm oozing, petechiae on chest wall Neuro: Sedated laboratory and microbiology Laboratory Tests 04/30/24 13:25 04/30/24 05:00 Test 04/30/24 05:00 Range/Units Serum Glucose 159 H 74-106 mg/dL Microbiology Date/Time Source Procedure Growth Status 04/23/24 15:07 Gallbladder Fluid Gram Stain - Final Complete 04/23/24 15:07 Gallbladder Fluid Body Fluid Culture - Final Complete 04/17/24 23:15 Voided Urine Urine Culture - Final Presumptive Nini albicans Complete 04/17/24 19:14 Blood Blood Culture - Final NO GROWTH AFTER 5 DAYS OF INCUBATION. Complete 04/17/24 17:53 Sputum Gram Stain - Final Complete 04/17/24 17:53 Respiratory Culture - Final Presumptive Nini albicans Complete 04/08/24 21:15 Nose MRSA Screen - Final Complete Labs and/or images reviewed: Labs reviewed by me, Image(s) reviewed by me Problem List/Assessment/Plan Problem List/Assessment/Plan Assessment/plan Neurology #Sedation Fentanyl #acute metabolic encephalopathy due to sepsis , ?thiamine def -head CT -thiamine IV # history of dementia ?Thiamine deficiency -thiamine replaced Cardiology #shock, septic vs cardiogenic shock -currently on norepinephrine -IV steroids,discontinued -repeat panculture #extravascular fluid overload likely oncotic albumin f/b Lasix, discontinued albumin restarted by landscape designer, discontinued albumin once #acute on chronic heart failure with reduced ejection fraction 40% -currently on norepinephrine #CAD s/p CABG -hold antiplatelet/anticoagulation considering low platelet count # history of DVT Repeat lower extremity Doppler venous showed evidence of nonocclusive thrombus in bilateral femoral veins -hold antiplatelet/anticoagulation considering low platelet count # superficial venous phlebitis right arm Warm compresses #Bluish black discoloration right hand , distribution of radial artery -rule out limb ischaemia -arterial duplex GI #Elevated Bilirubin, direct > indirect -obstructive pattern -liver USG -liver Doppler to rule out Budd Chiari #Transaminitis due to acalculous cholecystitis -s/p cholecystectomy 04/23/24 -monitor liver usg for checking CBD dilation #?Acalculous cholecystitis -IR consulted for cholecystostomy s/p cholecystectomy 04/23/24 # PUD prophylaxis -IV Protonix Infectious disease #Sepsis due to aspiration pneumonia/ infected wounds -IV antibiotics -repeat panculture change celaya catheter repeat urine culture #infected sacral ulcer -IV antibiotics -wound culture Respiratory #acute hypoxic respiratory failure 2/2 aspiration PNA -on mech vent #Aspiration pneumonia IV antibiotics, vanc, meropenem Nephrology #MELVINA likely ATN -monitor BMP -started on bumex drip by the landscape designer -started on bicarb and dopamine drip by the landscape designer # hypokalemia Replaced #Hypomagnesemia -replace # hyponatremia -free water through NG tube, discontinued Hematology/oncology #Severe anemia requiring blood transfusion -ordered hemolysis workup -hematology oncology workup Haptoglobin, direct, indirect Shira test, LDH #?DIC -2 unit of FFP transfused #?HIT -4t Score of 6 -stopped Lovenox #thrombocytopenia -1 unit of PRP #Coagulopathy due to DIC -vitamin k once IV -monitor -2 units of FFP replaced Nutrition started on Nepro with Carb steady DVT prophylaxis, on hold due to low platelet count SCDs Drips Norepinephrine fentanyl bicarb bumex dopamine Lines Right subclavian CVC Planned for IJ CVC am Code Status discussed with the family for >23min, No compressions/no shock, modified DNR Case discussion with dr rojas Critical care time excluding procedures: 63 minutes Family at bedside explained about the condition of the patient. Plan discussed with: Other Dietary Evaluation Review Recommendations by RD: Protein Supplementation Comments: 1) If NPO > 7 days, consider EN/TPN to meet at least 75% of estimated daily energy needs. 2) Initiate Lucas @ 1 pk bid when medically feasible. 3) Advance diet to 60g CCHO/cardiac when medically feasible, pending PROOF PASSER approval. 4) Continue to monitor nutrition-related labs. Expected Outcomes/Goals: 1) diet to advance 2) appetite and labs to improve 3) f/u in 3-5 days CC Plasma Assessment Blood Product Administration S: 12:55 Date of Service: Apr 30, 2024 Billing Provider: FITZ ROJAS MD Common Visit Codes: [id number] CARE 30-74 MIN HUONG ARAUJO RESIDENT Apr 30, 2024 18:56 FITZ ROJAS MD May 01, 2024 11:53
--- NOTE | 2024-04-30 20:45 | DVHPN2 ---
Progress Note - Dictate Date Seen: Apr 30, 2024 Medical Necessity Reason Pt with a Central, PICC or Fol: Yes The following are medically ne: Central Line, PICC Line, Celaya Catheter Reason for celaya catheter: Strict I&O Subjective Patient was seen and valuated in follow up in the ICU. Patient is intubated and sedated on ventilator. FiO2 was decreased to 30%. HGB 8.2, HCT 25.3, K 2.8, CL 111, BUN 79, INFORMATICS SPEC 2.17, AST 72. vital signs Vital Sign Date Time Temp Pulse Resp B/P (MAP) Pulse Ox O2 Delivery O2 Flow Rate FiO2 04/30/24 12:18 115 20 111/61 (78) 96 30 04/30/24 12:00 99.7 211.5 04/30/24 06:00 Mechanical Ventilator+ Total Intake and Output 04/29/24 04/29/24 04/30/24 15:00 23:00 07:00 Intake Total 804.974 ml 1087.224 ml 1075.849 ml Output Total 170 ml 210 ml Balance 804.974 ml 917.224 ml 865.849 ml medications Current Medications Medications Dose Ordered Sig/Gus Route Start Time Stop Time Status Last Admin Dose Admin Diagnostic Test (Pha) 1 strip IQ4HR 04/08/24 04:00 04/30/24 04:37 1 STRIP Dextrose 50 ml UD PRN IV 04/08/24 00:15 04/13/24 10:15 50 ML Pantoprazole Sodium 40 mg DAILY IV 04/09/24 08:00 04/30/24 11:21 40 MG Vancomycin HCl 0 ml @ 0 mls/hr UD IV 04/13/24 15:15 Midazolam HCl 50 ml @ 1 mls/hr Q24H IV 04/13/24 15:45 04/13/24 16:44 1 MLS/HR Enteral Nutritional Formula 1,000 ml 30ML/HR GT 04/15/24 08:45 04/29/24 22:23 1,000 ML Artificial Tears 1 drop Q6HP PRN EACHEYE 04/15/24 09:00 Insulin Human Regular HOLD INSULIN FOR BL... IQ4HR SC 04/18/24 16:00 04/30/24 04:38 4 UNITS Norepinephrine Bitartrate 250 ml @ 1.875 mls/ hr Q24H IV 04/20/24 16:15 04/30/24 06:06 9.375 MLS/HR Docusate Sodium 100 mg BID GT 04/22/24 10:00 04/30/24 11:21 100 MG Meropenem 50 ml @ 17 mls/hr Q12HR IV 04/22/24 22:00 04/30/24 11:21 17 MLS/HR Fentanyl Citrate 250 ml @ 2.5 mls/hr Q24H IV 04/22/24 23:20 04/29/24 02:40 5 MLS/HR Dopamine HCl/ Dextrose 250 ml @ 4.778 mls/ hr Q24H IV 04/28/24 15:45 04/30/24 11:31 4.778 MLS/HR Bumetanide 25 mg/ Miscellaneous 100 ml @ 4 mls/hr Q24H IV 04/29/24 12:30 04/30/24 00:04 4 MLS/HR Phenylephrine HCl 80 mg/Sodium Chloride 250 ml @ 7.5 mls/hr Q24H IV 04/30/24 08:15 Cancel Sodium Bicarbonate 50 ml/ Sodium Chloride 1,050 ml @ 100 mls/hr [id number] IV 04/30/24 12:00 UNV objective GENERAL: Intubated on ventilator. LUNGS: Decreased breath sounds. CARDIOVASCULAR: Heart sounds are good. ABDOMEN: Soft. EXT: +1 pitting edema. laboratory and microbiology Laboratory Tests 04/30/24 05:00 Test 04/30/24 05:00 Range/Units Serum Glucose 159 H 74-106 mg/dL Problem List Questionable atrial fibrillation (takes Eliquis at home). Coronary artery disease status post triple-vessel CABG. Acute on chronic HFrEF, NYHA class III. Sepsis. Hypertension. Hyperlipidemia. CVA with right-sided deficit. Chronic kidney disease. Type 2 diabetes mellitus. Transaminitis. Anemia. Osteoporosis. Dementia. Bed-bound. Assessment/Plan Continued all current supportive medical care. IV antibiotics as ordered. GI prophylactics. Vasopressors for hemodynamic support. Additional plan as per the hospital course. Critical care time of 45 minutes provided to include time spent evaluation of patient at bedside, when appropriate patient/family education for diagnosis, treatment plan, review of pertinent medical information and discussion of care with specialty providers and PCP. Mechanical ventilator parameters, treatment and adjustments have personally been reviewed by me and treatment plan by armature connector has also been reviewed. Dietary Evaluation Review Recommendations by RD: Protein Supplementation Comments: 1) If NPO > 7 days, consider EN/TPN to meet at least 75% of estimated daily energy needs. 2) Initiate Lucas @ 1 pk bid when medically feasible. 3) Advance diet to 60g CCHO/cardiac when medically feasible, pending COCKTAIL LOUNGE MANAGER approval. 4) Continue to monitor nutrition-related labs. Expected Outcomes/Goals: 1) diet to advance 2) appetite and labs to improve 3) f/u in 3-5 days Plan discussed with: Patient CC Plasma Assessment Blood Product Administration S: 12:55 JONNA MAGANA MD Apr 30, 2024 13:42
[2024-05-01] VITALS (112 sets, daily range): BP systolic 82–167; BP diastolic 29–94; PULSE 94–117; RESP 17–27; TEMP 97.2–99.5; O2SAT 96–100
--- NOTE | 2024-05-01 05:50 | DVH ---
CHEST RADIO[facility]: Single frontal view of the chest was obtained Comparison: XY CHEST PORTABLE on DOS: 04/30/24 FINDINGS: Lines and Tubes: The endotracheal tube terminates 4.2 cm above the nora. Enteric tube terminates in the stomach. Right central venous catheter terminates in the superior cavoatrial junction. Lungs: Hazy bilateral opacities similar to prior study. Pleura: No effusion. No pneumothorax. Cardiomediastinal contours: Unremarkable Bones: No acute osseous abnormality. IMPRESSION: 1. Stable position of the support lines and tubes. 2. Stable bilateral opacities.
[2024-05-01 08:22] LABS: Hematocrit 27.5 % (36.0-46.0); Mean Corpuscular Hgb Conc. 32.8 g/dL (32.0-36.0); White Blood Cell 5.2 10^3/uL (4.4-10.8)
[2024-05-01 08:26] LABS: Mean Corpuscular Hemoglobin 31.8 pg (28.0-32.0); Mean Corpuscular Volume 96.9 fL (80.0-100.0); Platelet Count (auto) 45 10^3/uL (140-450); Red Blood Cells 2.84 10^6/uL (4.0-5.20); Red Cell Distribution Width 17.2 % (11.8-14.3)
[2024-05-01 08:32] LABS: Basophils % (manual) 0 (0.0-2.0); Blast Cells 0; Eosinophils % (manual) 0 (0-7); Metamyelocytes % 0; Myelocytes % 0; Promyelocytes % 0; Reactive Lymphocytes 0
[2024-05-01 08:42] LABS: Base Excess -6.3 mmol/L (-2.0-3.0)
[2024-05-01 08:55] LABS: Alanine Aminotransferase 25 U/L (7-40); Anion Gap 14 (5-15); Chloride 106 mmol/L (98-107); Magnesium 1.8 mg/dL (1.6-2.6); Potassium 3.7 mmol/L (3.5-5.1); Sodium 139 mmol/L (136-145)
[2024-05-01 09:00] LABS: Albumin 1.9 g/dL (3.2-4.8); Alkaline Phosphatase 507 U/L (46-116); Aspartate Aminotransferase 89 U/L (13-40); BUN/Creatinine Ratio 38.7 (10.0-20.0); Bilirubin, Total 11.9 mg/dL (0.2-1.0); Calcium 8.6 mg/dL (8.7-10.4); Carbon Dioxide 19 mmol/L (20-31); Glucose 215 mg/dL (74-106); Total Protein 3.9 g/dL (5.7-8.2)
[2024-05-01 09:01] LABS: Blood Urea Nitrogen 82 mg/dL (9-23)
[2024-05-01 09:06] LABS: Band Neutrophils % (manual) 2; Lymphocytes % (manual) 6 (10.0-50.0); Monocytes % (manual) 4 (0-12)
[2024-05-01 09:07] LABS: Large Platelets FEW; Platelet Estimate Decrea
[2024-05-01] MEDS: MAGNESIUM SULFATE 1GM/100ML 100 ML IV ONE (10:55)
--- NOTE | 2024-05-01 13:28 | DVHPN2 ---
Progress Note - Dictate Date Seen: May 01, 2024 Medical Necessity Reason Pt with a Central, PICC or Fol: Yes The following are medically ne: Central Line, PICC Line, Celaya Catheter Reason for celaya catheter: Strict I&O Subjective Patient was seen and valuated in follow up in the ICU. Patient is intubated and sedated on ventilator. FiO2 30%. Patient is weeping large amounts of serous fluid from her edematous wounds. HGB 9, HCT 27.5, BU 82, ASSEMBLY MACHINE TENDER 2.21, GLUC 215, CA 8.6, AST 89. vital signs Vital Sign Date Time Temp Pulse Resp B/P (MAP) Pulse Ox O2 Delivery O2 Flow Rate FiO2 05/01/24 12:04 109 24 101/56 (71) 98 30 05/01/24 11:15 99.3 210.7 05/01/24 10:00 Mechanical Ventilator+ Total Intake and Output 04/30/24 04/30/24 05/01/24 15:00 23:00 07:00 Intake Total 310.844 ml 1234.224 ml 1333.724 ml Output Total 260 ml 135 ml Balance 310.844 ml 974.224 ml 1198.724 ml medications Current Medications Medications Dose Ordered Sig/Gus Route Start Time Stop Time Status Last Admin Dose Admin Diagnostic Test (Pha) 1 strip IQ4HR 04/08/24 04:00 05/01/24 08:00 1 STRIP Dextrose 50 ml UD PRN IV 04/08/24 00:15 04/13/24 10:15 50 ML Pantoprazole Sodium 40 mg DAILY IV 04/09/24 08:00 05/01/24 09:06 40 MG Vancomycin HCl 0 ml @ 0 mls/hr UD IV 04/13/24 15:15 Midazolam HCl 50 ml @ 1 mls/hr Q24H IV 04/13/24 15:45 04/13/24 16:44 1 MLS/HR Enteral Nutritional Formula 1,000 ml 30ML/HR GT 04/15/24 08:45 04/29/24 22:23 1,000 ML Artificial Tears 1 drop Q6HP PRN EACHEYE 04/15/24 09:00 Insulin Human Regular HOLD INSULIN FOR BL... IQ4HR SC 04/18/24 16:00 05/01/24 08:00 4 UNITS Norepinephrine Bitartrate 250 ml @ 1.875 mls/ hr Q24H IV 04/20/24 16:15 05/01/24 11:11 22.5 MLS/HR Docusate Sodium 100 mg BID GT 04/22/24 10:00 05/01/24 09:06 100 MG Meropenem 50 ml @ 17 mls/hr Q12HR IV 04/22/24 22:00 05/01/24 09:05 17 MLS/HR Fentanyl Citrate 250 ml @ 2.5 mls/hr Q24H IV 04/22/24 23:20 04/30/24 18:52 5 MLS/HR Dopamine HCl/ Dextrose 250 ml @ 4.778 mls/ hr Q24H IV 04/28/24 15:45 04/30/24 11:31 4.778 MLS/HR Bumetanide 25 mg/ Miscellaneous 100 ml @ 4 mls/hr Q24H IV 04/29/24 12:30 04/30/24 18:37 4 MLS/HR Phenylephrine HCl 80 mg/Sodium Chloride 250 ml @ 7.5 mls/hr Q24H IV 04/30/24 08:15 Cancel Sodium Bicarbonate 50 ml/ Sodium Chloride 1,050 ml @ 100 mls/hr [id number] IV 04/30/24 12:00 05/01/24 11:11 100 MLS/HR objective GENERAL: Intubated on ventilator. LUNGS: Decreased breath sounds. CARDIOVASCULAR: Heart sounds are good. ABDOMEN: Soft. EXT: +1 pitting edema. laboratory and microbiology Laboratory Tests 05/01/24 07:58 Test 05/01/24 07:58 Range/Units Serum Glucose 215 H 74-106 mg/dL Problem List Questionable atrial fibrillation (takes Eliquis at home). Coronary artery disease status post triple-vessel CABG. Acute on chronic HFrEF, NYHA class III. Sepsis. Hypertension. Hyperlipidemia. CVA with right-sided deficit. Chronic kidney disease. Type 2 diabetes mellitus. Transaminitis. Anemia. Osteoporosis. Dementia. Bed-bound. Assessment/Plan Continued all current supportive medical care. IV antibiotics as ordered. GI prophylactics. Vasopressors for hemodynamic support. Additional plan as per the hospital course. Critical care time of 45 minutes provided to include time spent evaluation of patient at bedside, when appropriate patient/family education for diagnosis, treatment plan, review of pertinent medical information and discussion of care with specialty providers and PCP. Mechanical ventilator parameters, treatment and adjustments have personally been reviewed by me and treatment plan by manager investment banking has also been reviewed. Dietary Evaluation Review Recommendations by RD: Protein Supplementation Comments: 1) If NPO > 7 days, consider EN/TPN to meet at least 75% of estimated daily energy needs. 2) Initiate Lucas @ 1 pk bid when medically feasible. 3) Advance diet to 60g CCHO/cardiac when medically feasible, pending SCIENTIFIC INVESTIGATOR approval. 4) Continue to monitor nutrition-related labs. Expected Outcomes/Goals: 1) diet to advance 2) appetite and labs to improve 3) f/u in 3-5 days Plan discussed with: Other CC Plasma Assessment Blood Product Administration S: 12:55 JONNA MAGANA MD May 01, 2024 12:11
--- NOTE | 2024-05-01 13:56 | DVHPN2 ---
Progress Note Date Seen: May 01, 2024 Medical Necessity Reason Pt with a Central, PICC or Fol: Yes The following are medically ne: Central Line, PICC Line, Celaya Catheter Reason for celaya catheter: Strict I&O Subjective Review of Systems: RESPIRATORY:Abnormal Other Systems: Patient seen and examined by myself today in follow-up Patient remained intubated on ventilator Objective vital signs Vital Sign Date Time Temp Pulse Resp B/P (MAP) Pulse Ox O2 Delivery O2 Flow Rate FiO2 05/01/24 13:15 98.8 95 22 133/66 (88) 99 209.8 05/01/24 12:04 30 05/01/24 12:00 Mechanical Ventilator+ Total Intake and Output 04/30/24 04/30/24 05/01/24 15:00 23:00 07:00 Intake Total 310.844 ml 1234.224 ml 1333.724 ml Output Total 260 ml 135 ml Balance 310.844 ml 974.224 ml 1198.724 ml medications Current Medications Medications Dose Ordered Sig/Gus Route Start Time Stop Time Status Last Admin Dose Admin Diagnostic Test (Pha) 1 strip IQ4HR 04/08/24 04:00 05/01/24 12:00 1 STRIP Dextrose 50 ml UD PRN IV 04/08/24 00:15 04/13/24 10:15 50 ML Pantoprazole Sodium 40 mg DAILY IV 04/09/24 08:00 05/01/24 09:06 40 MG Vancomycin HCl 0 ml @ 0 mls/hr UD IV 04/13/24 15:15 Midazolam HCl 50 ml @ 1 mls/hr Q24H IV 04/13/24 15:45 04/13/24 16:44 1 MLS/HR Enteral Nutritional Formula 1,000 ml 30ML/HR GT 04/15/24 08:45 04/29/24 22:23 1,000 ML Artificial Tears 1 drop Q6HP PRN EACHEYE 04/15/24 09:00 Insulin Human Regular HOLD INSULIN FOR BL... IQ4HR SC 04/18/24 16:00 05/01/24 08:00 4 UNITS Norepinephrine Bitartrate 250 ml @ 1.875 mls/ hr Q24H IV 04/20/24 16:15 05/01/24 11:11 22.5 MLS/HR Docusate Sodium 100 mg BID GT 04/22/24 10:00 05/01/24 09:06 100 MG Meropenem 50 ml @ 17 mls/hr Q12HR IV 04/22/24 22:00 05/01/24 09:05 17 MLS/HR Fentanyl Citrate 250 ml @ 2.5 mls/hr Q24H IV 04/22/24 23:20 04/30/24 18:52 5 MLS/HR Dopamine HCl/ Dextrose 250 ml @ 4.778 mls/ hr Q24H IV 04/28/24 15:45 04/30/24 11:31 4.778 MLS/HR Bumetanide 25 mg/ Miscellaneous 100 ml @ 4 mls/hr Q24H IV 04/29/24 12:30 04/30/24 18:37 4 MLS/HR Phenylephrine HCl 80 mg/Sodium Chloride 250 ml @ 7.5 mls/hr Q24H IV 04/30/24 08:15 Cancel Sodium Bicarbonate 50 ml/ Sodium Chloride 1,050 ml @ 100 mls/hr [id number] IV 04/30/24 12:00 05/01/24 11:11 100 MLS/HR Examination: LUNGS:Normal, CVS:Normal, MSK:Normal laboratory and microbiology Laboratory Tests 05/01/24 07:58 Test 05/01/24 07:58 Range/Units Serum Glucose 215 H 74-106 mg/dL Microbiology Date/Time Source Procedure Growth Status 04/30/24 04:50 Voided Urine Urine Culture - Preliminary Resulted 04/23/24 15:07 Gallbladder Fluid Gram Stain - Final Complete 04/23/24 15:07 Gallbladder Fluid Body Fluid Culture - Final Complete 04/17/24 19:14 Blood Blood Culture - Final NO GROWTH AFTER 5 DAYS OF INCUBATION. Complete 04/17/24 17:53 Sputum Gram Stain - Final Complete 04/17/24 17:53 Respiratory Culture - Final Presumptive Nini albicans Complete 04/08/24 21:15 Nose MRSA Screen - Final Complete Problem List/Assessment/Plan Problem List/Assessment/Plan MELVINA secondary to hemodynamic mediated Acute respiratory failure, intubated on ventilator Septic shock Metabolic acidosis Urinary tract infection Sacral decubitus ulcers Hypoalbuminemia /transaminitis hypernatremia hypokalemia REC: Kidney function slightly improved today ^Bumex drip IV Add dopamine low dose IVF 1/2 NS with sodium bicarb at 100 cc/hour Renally dose antibiotics to GFR Discontinue vancomycin not a fpc candidate for dialysis--informed son pt is a candidate for comfort care /hospice--recommend goals of care discussion Plan discussed with: Other (Nurse) My Orders My Orders Orders - JARROD JOHNSON MD Procedure Category Date Status Time Sod Chl 0.45% PHA 05/01/24 Verified (Sodi... W/Sodium 14:00 Urine Sodium LAB 05/01/24 Verified 13:51 Urine Creatinine LAB 05/01/24 Verified 13:51 Dietary Evaluation Review Recommendations by RD: Protein Supplementation Comments: 1) If NPO > 7 days, consider EN/TPN to meet at least 75% of estimated daily energy needs. 2) Initiate Lucas @ 1 pk bid when medically feasible. 3) Advance diet to 60g CCHO/cardiac when medically feasible, pending MANAGER ZONE approval. 4) Continue to monitor nutrition-related labs. Expected Outcomes/Goals: 1) diet to advance 2) appetite and labs to improve 3) f/u in 3-5 days CC Plasma Assessment Blood Product Administration S: 12:55 JARROD JOHNSON MD May 01, 2024 13:55
[2024-05-01] MEDS ORDERED: SODIUM BICARB 50mEq/50ml Vial 100 ML in SOD CHL 0.45% 1,000 ML IV SCH ×2 (14:00→16:15)
[2024-05-01 14:57] LABS: Creatinine, Urine 12.63 mg/dL (30.0-125.0)
--- NOTE | 2024-05-01 16:07 | DVHPNRES ---
Progress Note Date Seen: May 01, 2024 Resident Creating Document: HUONG ARAUJO RESIDENT Medical Necessity Reason Pt with a Central, PICC or Fol: Yes The following are medically ne: Central Line, PICC Line, Celaya Catheter Reason for celaya catheter: Strict I&O Subjective Review of Systems pt seen and examined at bedside Patient is currently sedated and intubated, on mechanical ventilator @Norepi @fent Bumex drip bicarb drip dopamine drip Review of system could not be done as patient is sedated Transfused with 1 unit of Platelets Objective vital signs Vital Sign Date Time Temp Pulse Resp B/P (MAP) Pulse Ox O2 Delivery O2 Flow Rate FiO2 05/01/24 15:40 98.2 98 20 115/70 98.2 05/01/24 14:38 99 30 05/01/24 12:00 Mechanical Ventilator+ Total Intake and Output 04/30/24 04/30/24 05/01/24 15:00 23:00 07:00 Intake Total 310.844 ml 1234.224 ml 1333.724 ml Output Total 260 ml 135 ml Balance 310.844 ml 974.224 ml 1198.724 ml medications Current Medications Medications Dose Ordered Sig/Gus Route Start Time Stop Time Status Last Admin Dose Admin Diagnostic Test (Pha) 1 strip IQ4HR 04/08/24 04:00 05/01/24 16:01 1 STRIP Dextrose 50 ml UD PRN IV 04/08/24 00:15 04/13/24 10:15 50 ML Pantoprazole Sodium 40 mg DAILY IV 04/09/24 08:00 05/01/24 09:06 40 MG Midazolam HCl 50 ml @ 1 mls/hr Q24H IV 04/13/24 15:45 04/13/24 16:44 1 MLS/HR Enteral Nutritional Formula 1,000 ml 30ML/HR GT 04/15/24 08:45 04/29/24 22:23 1,000 ML Artificial Tears 1 drop Q6HP PRN EACHEYE 04/15/24 09:00 Insulin Human Regular HOLD INSULIN FOR BL... IQ4HR SC 04/18/24 16:00 05/01/24 08:00 4 UNITS Norepinephrine Bitartrate 250 ml @ 1.875 mls/ hr Q24H IV 04/20/24 16:15 05/01/24 11:11 22.5 MLS/HR Docusate Sodium 100 mg BID GT 04/22/24 10:00 05/01/24 09:06 100 MG Meropenem 50 ml @ 17 mls/hr Q12HR IV 04/22/24 22:00 05/01/24 09:05 17 MLS/HR Fentanyl Citrate 250 ml @ 2.5 mls/hr Q24H IV 04/22/24 23:20 04/30/24 18:52 5 MLS/HR Dopamine HCl/ Dextrose 250 ml @ 4.778 mls/ hr Q24H IV 04/28/24 15:45 04/30/24 11:31 4.778 MLS/HR Bumetanide 25 mg/ Miscellaneous 100 ml @ 4 mls/hr Q24H IV 04/29/24 12:30 04/30/24 18:37 4 MLS/HR Phenylephrine HCl 80 mg/Sodium Chloride 250 ml @ 7.5 mls/hr Q24H IV 04/30/24 08:15 Cancel Sodium Bicarbonate 100 ml/Sodium Chloride 1,100 ml @ 100 mls/hr Q11H IV 05/01/24 14:00 Micafungin Sodium 100 mg/Sodium Chloride 100 ml @ 100 mls/hr DAILY IV 05/02/24 10:00 Examination Examination General Appearance: Sedated and intubated, generalized anasarca Respiratory: Clear to auscultation, Normal air movement, mechanical ventilation Cardiovascular: Regular rate, Normal S1, Normal S2 Abdominal: Soft Extremities: Bilateral pedal pitting edema Skin: right 1st and 2nd phalanx black-bluish discoloration(improving), right hand swelling Left arm bruising, right arm oozing, petechiae on chest wall Neuro: Sedated laboratory and microbiology Laboratory Tests 05/01/24 07:58 Test 05/01/24 07:58 Range/Units Serum Glucose 215 H 74-106 mg/dL Microbiology Date/Time Source Procedure Growth Status 04/30/24 04:50 Voided Urine Urine Culture - Preliminary Resulted 04/23/24 15:07 Gallbladder Fluid Gram Stain - Final Complete 04/23/24 15:07 Gallbladder Fluid Body Fluid Culture - Final Complete 04/17/24 19:14 Blood Blood Culture - Final NO GROWTH AFTER 5 DAYS OF INCUBATION. Complete 04/17/24 17:53 Sputum Gram Stain - Final Complete 04/17/24 17:53 Respiratory Culture - Final Presumptive Nini albicans Complete 04/08/24 21:15 Nose MRSA Screen - Final Complete Labs and/or images reviewed: Labs reviewed by me, Image(s) reviewed by me Problem List/Assessment/Plan Problem List/Assessment/Plan Assessment/plan Neurology #Sedation Fentanyl #acute metabolic encephalopathy due to sepsis , ?thiamine def -head CT -thiamine IV # history of dementia ?Thiamine deficiency -thiamine replaced Cardiology #shock, septic vs cardiogenic shock -currently on norepinephrine -IV steroids,discontinued -repeat panculture #extravascular fluid overload likely oncotic albumin f/b Lasix, discontinued albumin restarted by sports trainer, discontinued albumin once #acute on chronic heart failure with reduced ejection fraction 40% -currently on norepinephrine #CAD s/p CABG -hold antiplatelet/anticoagulation considering low platelet count # history of DVT Repeat lower extremity Doppler venous showed evidence of nonocclusive thrombus in bilateral femoral veins -hold antiplatelet/anticoagulation considering low platelet count # superficial venous phlebitis right arm Warm compresses #Bluish black discoloration right hand , distribution of radial artery -rule out limb ischaemia -arterial duplex GI #Elevated Bilirubin, direct > indirect -obstructive pattern -liver USG -liver Doppler to rule out Budd Chiari #Transaminitis due to acalculous cholecystitis -s/p cholecystectomy 04/23/24 -monitor liver usg for checking CBD dilation #?Acalculous cholecystitis -IR consulted for cholecystostomy s/p cholecystectomy 04/23/24 # PUD prophylaxis -IV Protonix Infectious disease #Sepsis due to aspiration pneumonia/ infected wounds -IV antibiotics -repeat panculture change celaya catheter repeat urine culture #infected sacral ulcer -IV antibiotics -wound culture Respiratory #acute hypoxic respiratory failure 2/2 aspiration PNA -on mech vent #Aspiration pneumonia IV antibiotics, vanc, meropenem Nephrology #MELVINA likely ATN -monitor BMP -started on bumex drip by the sports trainer -started on bicarb and dopamine drip by the sports trainer # hypokalemia Replaced #Hypomagnesemia -replace # hyponatremia -free water through NG tube, discontinued Hematology/oncology #Severe anemia requiring blood transfusion -ordered hemolysis workup -hematology oncology workup Haptoglobin, direct, indirect Shira test, LDH #?DIC -2 unit of FFP transfused #?HIT -4t Score of 6 -stopped Lovenox #thrombocytopenia -1 unit of PRP #Coagulopathy due to DIC -vitamin k once IV -monitor -2 units of FFP replaced Nutrition started on Nepro with Carb steady DVT prophylaxis, on hold due to low platelet count SCDs Drips Norepinephrine fentanyl bicarb bumex dopamine Lines Right subclavian CVC Planned for IJ CVC am Code Status discussed with the family for >23min, No compressions/no shock, modified DNR Case discussion with dr rojas Critical care time excluding procedures: 61 minutes Plan discussed with: Other My Orders My Orders Orders - HUONG ARAUJO Procedure Category Date Status Time Chest Portable XY 05/01/24 Resulted 04:00 * Wound Consult CONS 05/01/24 Transmitted 02:02 Micafungin Sodium PHA 05/01/24 In Process (Mycamine) 15:45 Micafungin Sodium PHA 05/02/24 In Process (Mycamine) 10:00 Basic Metabolic Panel LAB 05/02/24 Verified 04:00 Complete Blood Count LAB 05/02/24 Verified 04:00 Magnesium LAB 05/02/24 Verified 04:00 Chest Portable XY 05/02/24 Logged 04:00 Dietary Evaluation Review Recommendations by RD: Protein Supplementation Comments: 1) If NPO > 7 days, consider EN/TPN to meet at least 75% of estimated daily energy needs. 2) Initiate Lucas @ 1 pk bid when medically feasible. 3) Advance diet to 60g CCHO/cardiac when medically feasible, pending BIOPROCESS ENGINEER approval. 4) Continue to monitor nutrition-related labs. Expected Outcomes/Goals: 1) diet to advance 2) appetite and labs to improve 3) f/u in 3-5 days CC Plasma Assessment Blood Product Administration S: 12:55 Date of Service: May 01, 2024 Billing Provider: FITZ ROJAS MD Common Visit Codes: 58402-[id number] CARE 30-74 MIN HUONG ARAUJO May 01, 2024 16:07 FITZ ROJAS MD May 04, 2024 12:32
[2024-05-01] MEDS: SODIUM BICARB 50mEq/50ml Vial 100 ML in SOD CHL 0.45% 1,000 ML IV SCH (16:38)
[2024-05-01] MEDS: MICAFUNGIN SODIUM 100 MG in SODIUM CHL 0.9% 100 ML IV ONE (17:24)
--- NOTE | 2024-05-01 23:07 | DVHNC2 ---
Central Line Recorder of insertion practice: Art Manager (Resident Physician) Indication: Hypotension Room prepared for procedure: Yes Art Manager performed hand hygien: Yes Maximal sterile barrier precau: Mask/Eye shield, Sterile gown, Cap, Sterlie gloves, Large sterlie drape Skin Preparation: Chlorhexidine gluconate Skin preparation completely dr: Yes Insertion site: Left, Internal jugular Central line catheter type: [id number] dialysis Number of lumens: 3 Notes The patient was lying in the Trendelenburg position with head turned 30 degrees away from the insertion site. The skin was thoroughly sponged with chlorhexidine and allowed to dry. All persons involved were shielded with hair nets, face masks and sterile gowns. With sterile-gloved hands the left neck area was draped with the large disposable sterile field provided in the pre-manufactured kit. The skin and subcutaneous tissues superficial to the Left internal jugular vein were anesthetized with 2 mL of 1% lidocaine. The Left internal jugular vein was identified on ultrasound from the angle of the mandible down into the supraclavicular fossa using the linear ultrasound pro be in the transverse orientation. The carotid artery was identified and avoided utilizing color-flow. The internal jugular vein was then placed in the center of the ultrasound field and compressed for patency. A movement artifact was identified as the needle was advanced through the skin and advanced toward the vessel. A real time hyperechoic signal revealed visualization of vascular needle entry into the lumen as blood was noted to flashback in the syringe. The needle was then held in place while the guide wire was advanced. The needle was then removed. Direct visualization of guide wire location within the vein was noted on ultrasound indicating proper placement and was document in the electronic medical record chart. A skin dilator was advanced over the guidewire and removed, and the triple-lumen catheter was then advanced over the guide wire into proper position. The guide wire was removed and discarded. The ports were aspirated which showed good blood return and then carefully flushed with normal saline. The catheter was stabilized and sutured to the skin with 2-0 silk at 2 anchor points. A sterile bio-patch and dressing was placed over the catheter, including the insertion site. The patient tolerated the procedure well. A chest x-ray was ordered for position confirmation. Marcos Curiel Resident Kimberly Messer MD Date of Service: May 01, 2024 Billing Provider: KIMBERLY GARCIA MD Common Visit Codes: PROCEDURE ONLY Procedure Codes: [id number] NON-TUNNEL CV CATH MARCOS CURIEL RESIDENT May 01, 2024 23:07
--- NOTE | 2024-05-01 23:12 | DVH ---
EXAM: XY CHEST PORTABLE CLINICAL HISTORY: central line insertion TECHNIQUE: Single AP view of the chest WID: COMPARISON: XY CHEST PORTABLE on DOS: 05/01/24 FINDINGS: Lines and tubes: Endotracheal tube projects 4.1 cm above the nora. Left IJ central venous catheter projects over the upper right atrium. Right subclavian central venous catheter projects over the low SVC. Gastric tube descends beneath the level of the diaphragm and tip not visualized in field of vie w. Prior median sternotomy. Chest: The heart size and pulmonary vasculature is within normal limits. Calcified plaque projects over the aortic arch. Patchy perihilar mixed airspace opacities. Small bilateral pleural effusions. The osseous structures are grossly intact. IMPRESSION: 1. Left IJ central venous catheter with the tip projecting over the upper right atrium. No pneumothor ax. 2. Additional indwelling support devices in place as described. 3. Mild patchy perihilar opacities. 4. Small bilateral pleural effusions
[2024-05-02] VITALS (103 sets, daily range): BP systolic 93–137; BP diastolic 40–81; PULSE 90–120; RESP 15–29; TEMP 97–99.5; O2SAT 80–100
[2024-05-02 05:29] LABS: Basophils # (auto) 0 10 ^3/uL (0-0.2); Basophils % (auto) 0.3 % (0.0-2.0); Eosinophils # (auto) 0 10 ^3/uL (0-0.8); Eosinophils % (auto) 0.2 % (0.0-7.0); Hematocrit 25.6 % (36.0-46.0); Hemoglobin 8.5 g/dL (12.2-16.2); Lymphocytes # (auto) 0.2 10 ^3/uL (0.4-5.4); Lymphocytes % (auto) 4.9 % (10.0-50.0); Mean Corpuscular Hemoglobin 31.6 pg (28.0-32.0); Mean Corpuscular Hgb Conc. 33.1 g/dL (32.0-36.0); Mean Corpuscular Volume 95.6 fL (80.0-100.0); Monocytes # (auto) 0.1 10 ^3/uL (0-1.3); Monocytes % (auto) 2.4 % (0.0-12.0); Neutrophils % (auto) 92.2 % (37.0-80.0); Nucleated Red Blood Cells % 6.6 %; Platelet Count (auto) 75 10^3/uL (140-450); Red Blood Cells 2.68 10^6/uL (4.0-5.20); Red Cell Distribution Width 17.4 % (11.8-14.3); White Blood Cell 4.3 10^3/uL (4.4-10.8)
[2024-05-02 05:33] LABS: Anion Gap 14 (5-15); Chloride 106 mmol/L (98-107); Sodium 139 mmol/L (136-145)
[2024-05-02 05:39] LABS: Magnesium 2.1 mg/dL (1.6-2.6)
[2024-05-02 05:42] LABS: BUN/Creatinine Ratio 36.3 (10.0-20.0)
[2024-05-02 05:43] LABS: Blood Urea Nitrogen 74 mg/dL (9-23); Carbon Dioxide 19 mmol/L (20-31); Glucose 256 mg/dL (74-106); Potassium 3.2 mmol/L (3.5-5.1)
--- NOTE | 2024-05-02 06:06 | DVH ---
CHEST RADIOGRAPH Indication: mech vent Technique: Single frontal view of the chest was obtained Comparison: XY CHEST PORTABLE on DOS: 05/01/24 FINDINGS: Lines and Tubes: Endotracheal tube terminates 3.8 cm above the nora. Enteric tube terminates in the stomach. Lungs: Bilateral opacities, increased. Pleura: Bilateral pleural effusions, increased. No pneumothorax. Cardiomediastinal contours: Unremarkable Bones: No acute osseous abnormality. Status post median sternotomy. IMPRESSION: 1. .Worsening bilateral airspace disease and pleural effusions
[2024-05-02] MEDS: POTASSIUM CHL 20MEQ/100ML 100 ML IV ONE ×2 (06:37→10:32)
[2024-05-02 08:10] LABS: Base Excess -4.3 mmol/L (-2.0-3.0)
[2024-05-02] MEDS: MICAFUNGIN SODIUM 100 MG in SODIUM CHL 0.9% 100 ML IV SCH (09:33)
[2024-05-02 09:58] LABS: Albumin 2.1 g/dL (3.2-4.8); Bilirubin, Direct 8.9 mg/dL (<0.3); Bilirubin, Total 11.4 mg/dL (0.2-1.0); Total Protein 4.4 g/dL (5.7-8.2)
--- NOTE | 2024-05-02 11:26 | DVHPN2 ---
Progress Note Date Seen: May 02, 2024 Medical Necessity Reason Pt with a Central, PICC or Fol: Yes The following are medically ne: Central Line, PICC Line, Celaya Catheter Reason for celaya catheter: Strict I&O Subjective Review of Systems: RESPIRATORY:Abnormal Other Systems: Patient seen and examined by myself today in follow-up, patient remained intubated on ventilator Objective vital signs Vital Sign Date Time Temp Pulse Resp B/P (MAP) Pulse Ox O2 Delivery O2 Flow Rate FiO2 05/02/24 10:15 97.9 107 15 109/61 (77) 98 208.2 05/02/24 10:00 Mechanical Ventilator+ 30 30 Total Intake and Output 05/01/24 05/01/24 05/02/24 15:00 23:00 07:00 Intake Total 1054.974 ml 1701.859 ml 1277.304 ml Output Total 440 ml 180 ml Balance 1054.974 ml 1261.859 ml 1097.304 ml medications Current Medications Medications Dose Ordered Sig/Gus Route Start Time Stop Time Status Last Admin Dose Admin Diagnostic Test (Pha) 1 strip IQ4HR 04/08/24 04:00 05/02/24 08:00 1 STRIP Dextrose 50 ml UD PRN IV 04/08/24 00:15 04/13/24 10:15 50 ML Pantoprazole Sodium 40 mg DAILY IV 04/09/24 08:00 05/02/24 09:32 40 MG Midazolam HCl 50 ml @ 1 mls/hr Q24H IV 04/13/24 15:45 04/13/24 16:44 1 MLS/HR Enteral Nutritional Formula 1,000 ml 30ML/HR GT 04/15/24 08:45 04/29/24 22:23 1,000 ML Artificial Tears 1 drop Q6HP PRN EACHEYE 04/15/24 09:00 Insulin Human Regular HOLD INSULIN FOR BL... IQ4HR SC 04/18/24 16:00 05/02/24 05:11 4 UNITS Norepinephrine Bitartrate 250 ml @ 1.875 mls/ hr Q24H IV 04/20/24 16:15 05/02/24 06:38 28.125 MLS/HR Docusate Sodium 100 mg BID GT 04/22/24 10:00 05/02/24 09:33 100 MG Meropenem 50 ml @ 17 mls/hr Q12HR IV 04/22/24 22:00 05/02/24 10:32 17 MLS/HR Fentanyl Citrate 250 ml @ 2.5 mls/hr Q24H IV 04/22/24 23:20 05/02/24 01:38 7.5 MLS/HR Dopamine HCl/ Dextrose 250 ml @ 4.778 mls/ hr Q24H IV 04/28/24 15:45 05/01/24 22:26 4.778 MLS/HR Bumetanide 25 mg/ Miscellaneous 100 ml @ 4 mls/hr Q24H IV 04/29/24 12:30 05/02/24 04:06 4 MLS/HR Phenylephrine HCl 80 mg/Sodium Chloride 250 ml @ 7.5 mls/hr Q24H IV 04/30/24 08:15 Cancel Micafungin Sodium 100 mg/Sodium Chloride 100 ml @ 100 mls/hr DAILY IV 05/02/24 10:00 05/02/24 09:33 100 MLS/HR Sodium Bicarbonate 100 ml/Sodium Chloride 1,100 ml @ 70 mls/hr [id number] IV 05/01/24 16:30 05/02/24 06:37 70 MLS/HR Examination: LUNGS:Normal, CVS:Normal, MSK:Normal laboratory and microbiology Laboratory Tests 05/02/24 04:51 Test 05/02/24 04:51 Range/Units Serum Glucose 256 H 74-106 mg/dL Microbiology Date/Time Source Procedure Growth Status 04/30/24 04:50 Voided Urine Urine Culture - Preliminary Presumptive Nini albicans Resulted 04/23/24 15:07 Gallbladder Fluid Gram Stain - Final Complete 04/23/24 15:07 Gallbladder Fluid Body Fluid Culture - Final Complete 04/17/24 19:14 Blood Blood Culture - Final NO GROWTH AFTER 5 DAYS OF INCUBATION. Complete 04/17/24 17:53 Sputum Gram Stain - Final Complete 04/17/24 17:53 Respiratory Culture - Final Presumptive Nini albicans Complete 04/08/24 21:15 Nose MRSA Screen - Final Complete Problem List/Assessment/Plan Problem List/Assessment/Plan MELVINA secondary to hemodynamic mediated Acute respiratory failure, intubated on ventilator Septic shock Metabolic acidosis Urinary tract infection Sacral decubitus ulcers Hypoalbuminemia /transaminitis hypernatremia hypokalemia REC: Kidney function slightly improved today ^Bumex drip IV Add dopamine low dose IVF 1/2 NS with sodium bicarb at 100 cc/hour Renally dose antibiotics to GFR Discontinue vancomycin not a [facility] candidate for dialysis--informed son pt is a candidate for comfort care /hospice--recommend goals of care discussion Plan discussed with: Patient, Spouse My Orders My Orders Orders - JARROD JOHNSON MD Procedure Category Date Status Time Sod Chl 0.45% PHA 05/01/24 In Process (Sodi... W/Sodium 16:30 Dietary Evaluation Review Recommendations by RD: Protein Supplementation Comments: 1) If NPO > 7 days, consider EN/TPN to meet at least 75% of estimated daily energy needs. 2) Initiate Lucas @ 1 pk bid when medically feasible. 3) Advance diet to 60g CCHO/cardiac when medically feasible, pending SPECK DYER approval. 4) Continue to monitor nutrition-related labs. Expected Outcomes/Goals: 1) diet to advance 2) appetite and labs to improve 3) f/u in 3-5 days CC Plasma Assessment Blood Product Administration S: 12:55 JARROD JOHNSON MD May 02, 2024 11:26
--- NOTE | 2024-05-02 15:52 | DVHPNRES ---
Progress Note Date Seen: May 02, 2024 Resident Creating Document: HUONG ARAUJO RESIDENT Medical Necessity Reason Pt with a Central, PICC or Fol: Yes The following are medically ne: Central Line, PICC Line, Celaya Catheter Reason for celaya catheter: Strict I&O Subjective Review of Systems pt seen and examined at bedside Patient is currently sedated and intubated, on mechanical ventilator @Norepi @fent Bumex drip bicarb drip dopamine drip Review of system could not be done as patient is sedated Objective vital signs Vital Sign Date Time Temp Pulse Resp B/P (MAP) Pulse Ox O2 Delivery O2 Flow Rate FiO2 05/02/24 15:32 103/63 05/02/24 12:10 103 27 96 30 05/02/24 12:00 98.2 208.8 05/02/24 12:00 Mechanical Ventilator+ Total Intake and Output 05/01/24 05/01/24 05/02/24 15:00 23:00 07:00 Intake Total 1054.974 ml 1701.859 ml 1277.304 ml Output Total 440 ml 180 ml Balance 1054.974 ml 1261.859 ml 1097.304 ml medications Current Medications Medications Dose Ordered Sig/Gus Route Start Time Stop Time Status Last Admin Dose Admin Diagnostic Test (Pha) 1 strip IQ4HR 04/08/24 04:00 05/02/24 12:23 1 STRIP Dextrose 50 ml UD PRN IV 04/08/24 00:15 04/13/24 10:15 50 ML Pantoprazole Sodium 40 mg DAILY IV 04/09/24 08:00 05/02/24 09:32 40 MG Midazolam HCl 50 ml @ 1 mls/hr Q24H IV 04/13/24 15:45 05/02/24 15:32 1 MLS/HR Enteral Nutritional Formula 1,000 ml 30ML/HR GT 04/15/24 08:45 04/29/24 22:23 1,000 ML Artificial Tears 1 drop Q6HP PRN EACHEYE 04/15/24 09:00 Insulin Human Regular HOLD INSULIN FOR BL... IQ4HR SC 04/18/24 16:00 05/02/24 12:26 4 UNITS Norepinephrine Bitartrate 250 ml @ 1.875 mls/ hr Q24H IV 04/20/24 16:15 05/02/24 14:55 26.25 MLS/HR Docusate Sodium 100 mg BID GT 04/22/24 10:00 05/02/24 09:33 100 MG Meropenem 50 ml @ 17 mls/hr Q12HR IV 04/22/24 22:00 05/02/24 10:32 17 MLS/HR Fentanyl Citrate 250 ml @ 2.5 mls/hr Q24H IV 04/22/24 23:20 05/02/24 01:38 7.5 MLS/HR Dopamine HCl/ Dextrose 250 ml @ 4.778 mls/ hr Q24H IV 04/28/24 15:45 05/01/24 22:26 4.778 MLS/HR Bumetanide 25 mg/ Miscellaneous 100 ml @ 4 mls/hr Q24H IV 04/29/24 12:30 05/02/24 04:06 4 MLS/HR Phenylephrine HCl 80 mg/Sodium Chloride 250 ml @ 7.5 mls/hr Q24H IV 04/30/24 08:15 Cancel Micafungin Sodium 100 mg/Sodium Chloride 100 ml @ 100 mls/hr DAILY IV 05/02/24 10:00 05/02/24 09:33 100 MLS/HR Sodium Bicarbonate 100 ml/Sodium Chloride 1,100 ml @ 70 mls/hr [id number] IV 05/01/24 16:30 05/02/24 06:37 70 MLS/HR Examination Examination General Appearance: Sedated and intubated, generalized anasarca Respiratory: Clear to auscultation, Normal air movement, mechanical ventilation Cardiovascular: Regular rate, Normal S1, Normal S2 Abdominal: Soft Extremities: Bilateral pedal pitting edema Skin: right 1st and 2nd phalanx black-bluish discoloration(improving), right hand swelling Left arm bruising, right arm oozing, petechiae on chest wall Neuro: Sedated laboratory and microbiology Laboratory Tests 05/02/24 04:51 Test 05/02/24 04:51 Range/Units Serum Glucose 256 H 74-106 mg/dL Microbiology Date/Time Source Procedure Growth Status 04/30/24 04:50 Voided Urine Urine Culture - Preliminary Presumptive Nini albicans Resulted 04/23/24 15:07 Gallbladder Fluid Gram Stain - Final Complete 04/23/24 15:07 Gallbladder Fluid Body Fluid Culture - Final Complete 04/17/24 19:14 Blood Blood Culture - Final NO GROWTH AFTER 5 DAYS OF INCUBATION. Complete 04/17/24 17:53 Sputum Gram Stain - Final Complete 04/17/24 17:53 Respiratory Culture - Final Presumptive Nini albicans Complete 04/08/24 21:15 Nose MRSA Screen - Final Complete Labs and/or images reviewed: Labs reviewed by me, Image(s) reviewed by me Problem List/Assessment/Plan Problem List/Assessment/Plan Assessment/plan Neurology #Sedation Fentanyl #acute metabolic encephalopathy due to sepsis , ?thiamine def -head CT -thiamine IV # history of dementia ?Thiamine deficiency -thiamine replaced Cardiology #shock, septic vs cardiogenic shock -currently on norepinephrine -IV steroids,discontinued -repeat panculture #extravascular fluid overload likely oncotic albumin f/b Lasix, discontinued albumin restarted by florist's decorator, discontinued albumin once #acute on chronic heart failure with reduced ejection fraction 40% -currently on norepinephrine #CAD s/p CABG -hold antiplatelet/anticoagulation considering low platelet count # history of DVT Repeat lower extremity Doppler venous showed evidence of nonocclusive thrombus in bilateral femoral veins -hold antiplatelet/anticoagulation considering low platelet count # superficial venous phlebitis right arm Warm compresses #Bluish black discoloration right hand , distribution of radial artery -rule out limb ischaemia -arterial duplex GI #Elevated Bilirubin, direct > indirect -obstructive pattern -liver USG -liver Doppler to rule out Budd Chiari #Transaminitis due to acalculous cholecystitis -s/p cholecystectomy 04/23/24 -monitor liver usg for checking CBD dilation #?Acalculous cholecystitis -IR consulted for cholecystostomy s/p cholecystectomy 04/23/24 # PUD prophylaxis -IV Protonix Infectious disease #Sepsis due to aspiration pneumonia/ infected wounds -IV antibiotics -repeat panculture change celaya catheter repeat urine culture #infected sacral ulcer -IV antibiotics -wound culture Respiratory #acute hypoxic respiratory failure 2/2 aspiration PNA -on mech vent VCAC RR 18, TV 400ml, 30%FiO2 and PEEP of 5 #Aspiration pneumonia IV antibiotics, vancomycin, meropenem Nephrology #MELVINA likely ATN -monitor BMP -started on Bumex drip by the florist's decorator -started on bicarb and dopamine drip by the florist's decorator # hypokalemia Replaced #Hypomagnesemia -replace # hyponatremia -free water through NG tube, discontinued Hematology/oncology #Severe anemia requiring blood transfusion -ordered hemolysis workup -hematology oncology workup Haptoglobin, direct, indirect Shira test, LDH #?DIC -2 unit of FFP transfused #?HIT -4t Score of 6 -stopped Lovenox #thrombocytopenia -1 unit of PRP #Coagulopathy due to DIC -vitamin k once IV -monitor -2 units of FFP replaced Nutrition started on Nepro with Carb steady DVT prophylaxis, on hold due to low platelet count SCDs Drips Norepinephrine fentanyl bicarb bumex dopamine Lines Right subclavian CVC Code Status discussed with the family for >23min, No compressions/no shock, modified DNR Case discussion with dr Maradiaga Critical care time excluding procedures: 61 minutes Pharmacy to evaluate for medications causing thrombocytopenia Plan discussed with: Other My Orders My Orders Orders - HUONG ARAUJO Procedure Category Date Status Time Chest Portable XY 05/01/24 Resulted 22:45 Blood Culture ROSS 05/01/24 In Process 23:33 Routine Bacterial ROSS 05/01/24 In Process Culture 23:33 Ok To Use Central Line ORDERS 05/01/24 Transmitted 23:38 D/C Tlc GWENDOLYN 05/01/24 In Process 23:38 Ventilator Orders RT 05/02/24 Transmitted 09:18 Dietary Evaluation Review Recommendations by RD: Protein Supplementation Comments: 1) If NPO > 7 days, consider EN/TPN to meet at least 75% of estimated daily energy needs. 2) Initiate Lucas @ 1 pk bid when medically feasible. 3) Advance diet to 60g CCHO/cardiac when medically feasible, pending INSTRUMENT INSPECTOR approval. 4) Continue to monitor nutrition-related labs. Expected Outcomes/Goals: 1) diet to advance 2) appetite and labs to improve 3) f/u in 3-5 days CC Plasma Assessment Blood Product Administration S: 12:55 HUONG ARAUJO May 02, 2024 15:52 PARAS MARADIAGA MD May 05, 2024 15:09
--- NOTE | 2024-05-02 20:55 | DVHPN2 ---
Progress Note - Dictate Date Seen: May 02, 2024 Medical Necessity Reason Pt with a Central, PICC or Fol: Yes The following are medically ne: Central Line, PICC Line, Celaya Catheter Reason for celaya catheter: Strict I&O Subjective Patient was seen and valuated in follow up in the ICU. Patient is intubated and sedated on ventilator. FiO2 30%. Patient is s/p PRBC transfusion. WBC 4.3, HGB 8.5, 25.6, K 3.2, CL 19, BUN 74, ENVIRONMENTAL PROFESSIONAL 2.04, GLUC 256, AST 76. Chest x-ray shows worsening bilateral airspace disease and pleural effusions. vital signs Vital Sign Date Time Temp Pulse Resp B/P (MAP) Pulse Ox O2 Delivery O2 Flow Rate FiO2 05/02/24 10:15 97.9 107 15 109/61 (77) 98 208.2 05/02/24 10:00 Mechanical Ventilator+ 30 30 Total Intake and Output 05/01/24 05/01/24 05/02/24 15:00 23:00 07:00 Intake Total 1054.974 ml 1701.859 ml 1277.304 ml Output Total 440 ml 180 ml Balance 1054.974 ml 1261.859 ml 1097.304 ml medications Current Medications Medications Dose Ordered Sig/Gus Route Start Time Stop Time Status Last Admin Dose Admin Diagnostic Test (Pha) 1 strip IQ4HR 04/08/24 04:00 05/02/24 08:00 1 STRIP Dextrose 50 ml UD PRN IV 04/08/24 00:15 04/13/24 10:15 50 ML Pantoprazole Sodium 40 mg DAILY IV 04/09/24 08:00 05/02/24 09:32 40 MG Midazolam HCl 50 ml @ 1 mls/hr Q24H IV 04/13/24 15:45 04/13/24 16:44 1 MLS/HR Enteral Nutritional Formula 1,000 ml 30ML/HR GT 04/15/24 08:45 04/29/24 22:23 1,000 ML Artificial Tears 1 drop Q6HP PRN EACHEYE 04/15/24 09:00 Insulin Human Regular HOLD INSULIN FOR BL... IQ4HR SC 04/18/24 16:00 05/02/24 05:11 4 UNITS Norepinephrine Bitartrate 250 ml @ 1.875 mls/ hr Q24H IV 04/20/24 16:15 05/02/24 06:38 28.125 MLS/HR Docusate Sodium 100 mg BID GT 04/22/24 10:00 05/02/24 09:33 100 MG Meropenem 50 ml @ 17 mls/hr Q12HR IV 04/22/24 22:00 05/02/24 10:32 17 MLS/HR Fentanyl Citrate 250 ml @ 2.5 mls/hr Q24H IV 04/22/24 23:20 05/02/24 01:38 7.5 MLS/HR Dopamine HCl/ Dextrose 250 ml @ 4.778 mls/ hr Q24H IV 04/28/24 15:45 05/01/24 22:26 4.778 MLS/HR Bumetanide 25 mg/ Miscellaneous 100 ml @ 4 mls/hr Q24H IV 04/29/24 12:30 05/02/24 04:06 4 MLS/HR Phenylephrine HCl 80 mg/Sodium Chloride 250 ml @ 7.5 mls/hr Q24H IV 04/30/24 08:15 Cancel Micafungin Sodium 100 mg/Sodium Chloride 100 ml @ 100 mls/hr DAILY IV 05/02/24 10:00 05/02/24 09:33 100 MLS/HR Sodium Bicarbonate 100 ml/Sodium Chloride 1,100 ml @ 70 mls/hr [id number] IV 05/01/24 16:30 05/02/24 06:37 70 MLS/HR objective GENERAL: Intubated on ventilator. LUNGS: Decreased breath sounds. CARDIOVASCULAR: Heart sounds are good. ABDOMEN: Soft. EXT: +1 pitting edema. laboratory and microbiology Laboratory Tests 05/02/24 04:51 Test 05/02/24 04:51 Range/Units Serum Glucose 256 H 74-106 mg/dL Problem List Questionable atrial fibrillation (takes Eliquis at home). Coronary artery disease status post triple-vessel CABG. Acute on chronic HFrEF, NYHA class III. Sepsis. Hypertension. Hyperlipidemia. CVA with right-sided deficit. Chronic kidney disease. Type 2 diabetes mellitus. Transaminitis. Anemia. Osteoporosis. Dementia. Bed-bound. Assessment/Plan Continued all current supportive medical care. IV antibiotics as ordered. GI prophylactics. Vasopressors for hemodynamic support. Additional plan as per the hospital course. Critical care time of 45 minutes provided to include time spent evaluation of patient at bedside, when appropriate patient/family education for diagnosis, treatment plan, review of pertinent medical information and discussion of care with specialty providers and PCP. Mechanical ventilator parameters, treatment and adjustments have personally been reviewed by me and treatment plan by reinspector has also been reviewed. Dietary Evaluation Review Recommendations by RD: Protein Supplementation Comments: 1) If NPO > 7 days, consider EN/TPN to meet at least 75% of estimated daily energy needs. 2) Initiate Lucas @ 1 pk bid when medically feasible. 3) Advance diet to 60g CCHO/cardiac when medically feasible, pending COIL CUTTER approval. 4) Continue to monitor nutrition-related labs. Expected Outcomes/Goals: 1) diet to advance 2) appetite and labs to improve 3) f/u in 3-5 days Plan discussed with: Other CC Plasma Assessment Blood Product Administration S: 12:55 JONNA MAGANA MD May 02, 2024 11:47
[2024-05-03] VITALS (114 sets, daily range): BP systolic 81–120; BP diastolic 43–67; PULSE 101–115; RESP 16–27; TEMP 97.5–98.4; O2SAT 92–99
[2024-05-03 05:18] LABS: Basophils # (auto) 0 10 ^3/uL (0-0.2); Eosinophils # (auto) 0 10 ^3/uL (0-0.8); Hematocrit 25.4 % (36.0-46.0); Hemoglobin 8.3 g/dL (12.2-16.2); Lymphocytes # (auto) 0.2 10 ^3/uL (0.4-5.4); Monocytes # (auto) 0.1 10 ^3/uL (0-1.3)
[2024-05-03 05:21] LABS: Basophils % (auto) 0.3 % (0.0-2.0); Eosinophils % (auto) 0.5 % (0.0-7.0); Lymphocytes % (auto) 5.9 % (10.0-50.0); Mean Corpuscular Hgb Conc. 32.8 g/dL (32.0-36.0); Mean Corpuscular Volume 97.5 fL (80.0-100.0); Monocytes % (auto) 2.9 % (0.0-12.0); Neutrophils # (auto) 3.4 10 ^3/uL (1.6-8.6); Neutrophils % (auto) 90.4 % (37.0-80.0); Nucleated Red Blood Cells % 6.7 %; Platelet Count (auto) 37 10^3/uL (140-450); Red Blood Cells 2.61 10^6/uL (4.0-5.20); White Blood Cell 3.7 10^3/uL (4.4-10.8)
[2024-05-03 05:46] LABS: Alanine Aminotransferase 25 U/L (7-40); Anion Gap 15 (5-15); Chloride 103 mmol/L (98-107); Magnesium 1.9 mg/dL (1.6-2.6); Sodium 138 mmol/L (136-145)
[2024-05-03 05:47] LABS: Alkaline Phosphatase 444 U/L (46-116); Aspartate Aminotransferase 96 U/L (13-40); Bilirubin, Total 11.6 mg/dL (0.2-1.0); Blood Urea Nitrogen 77 mg/dL (9-23); Calcium 8.6 mg/dL (8.7-10.4); Carbon Dioxide 20 mmol/L (20-31); Glucose 220 mg/dL (74-106); Total Protein 4.2 g/dL (5.7-8.2)
[2024-05-03 05:48] LABS: BUN/Creatinine Ratio 38.7 (10.0-20.0)
[2024-05-03 06:27] LABS: Anisocytosis Slight; Platelet Estimate Decreased
--- NOTE | 2024-05-03 06:38 | DVH ---
CHEST RADIOGRAPH Indication: mech vent Technique: Single frontal view of the chest was obtained Comparison: XY CHEST PORTABLE on DOS: 05/02/24, XY CHEST PORTABLE on DOS: 05/01/24, XY CHEST PORTABLE o n DOS: 05/01/24 IMPRESSION: Heart appears stable in size. There are is bibasilar subsegmental atelectasis with low lung volumes and mild pulmonary vascular congestion. Support lines and tubes appear unchanged in position. Pulmona ry aeration has overall mildly improved.
[2024-05-03] MEDS: VASOPRESSIN 20 UNITS in SODIUM CHL 0.9% 99 ML IV SCH (07:30)
[2024-05-03 08:53] LABS: Base Excess -6.8 mmol/L (-2.0-3.0)
--- NOTE | 2024-05-03 10:51 | DVHPN2 ---
Progress Note Date Seen: May 03, 2024 Medical Necessity Reason Pt with a Central, PICC or Fol: Yes The following are medically ne: Central Line, PICC Line, Celaya Catheter Reason for celaya catheter: Strict I&O Subjective Review of Systems: RESPIRATORY:Abnormal Other Systems: Patient seen and examined by myself today in follow-up Patient remained intubated on ventilator Objective vital signs Vital Sign Date Time Temp Pulse Resp B/P (MAP) Pulse Ox O2 Delivery O2 Flow Rate FiO2 05/03/24 10:40 108 21 100/56 (71) 97 30 05/03/24 06:45 97.7 207.9 05/03/24 06:00 Mechanical Ventilator+ Total Intake and Output 05/02/24 05/02/24 05/03/24 15:00 23:00 07:00 Intake Total 1216.849 ml 1286.274 ml 1183.141 ml Output Total 185 ml 215 ml Balance 1216.849 ml 1101.274 ml 968.141 ml medications Current Medications Medications Dose Ordered Sig/Gus Route Start Time Stop Time Status Last Admin Dose Admin Diagnostic Test (Pha) 1 strip IQ4HR 04/08/24 04:00 05/03/24 08:07 1 STRIP Dextrose 50 ml UD PRN IV 04/08/24 00:15 04/13/24 10:15 50 ML Pantoprazole Sodium 40 mg DAILY IV 04/09/24 08:00 05/03/24 08:39 40 MG Midazolam HCl 50 ml @ 1 mls/hr Q24H IV 04/13/24 15:45 05/03/24 09:01 1 MLS/HR Enteral Nutritional Formula 1,000 ml 30ML/HR GT 04/15/24 08:45 05/03/24 03:45 1,000 ML Artificial Tears 1 drop Q6HP PRN EACHEYE 04/15/24 09:00 Insulin Human Regular HOLD INSULIN FOR BL... IQ4HR SC 04/18/24 16:00 05/03/24 03:44 4 UNITS Norepinephrine Bitartrate 250 ml @ 1.875 mls/ hr Q24H IV 04/20/24 16:15 05/03/24 09:04 28.125 MLS/HR Docusate Sodium 100 mg BID GT 04/22/24 10:00 05/03/24 08:39 100 MG Meropenem 50 ml @ 17 mls/hr Q12HR IV 04/22/24 22:00 05/03/24 10:10 17 MLS/HR Fentanyl Citrate 250 ml @ 2.5 mls/hr Q24H IV 04/22/24 23:20 05/03/24 05:12 10 MLS/HR Dopamine HCl/ Dextrose 250 ml @ 4.778 mls/ hr Q24H IV 04/28/24 15:45 05/01/24 22:26 4.778 MLS/HR Bumetanide 25 mg/ Miscellaneous 100 ml @ 4 mls/hr Q24H IV 04/29/24 12:30 05/03/24 08:07 4 MLS/HR Phenylephrine HCl 80 mg/Sodium Chloride 250 ml @ 7.5 mls/hr Q24H IV 04/30/24 08:15 Cancel Micafungin Sodium 100 mg/Sodium Chloride 100 ml @ 100 mls/hr DAILY IV 05/02/24 10:00 05/03/24 08:38 100 MLS/HR Vasopressin 20 units/Sodium Chloride 100 ml @ 9 mls/hr Q11H7M IV 05/03/24 07:30 Potassium Chloride 100 ml @ 50 mls/hr Q2H IV 05/03/24 09:45 05/03/24 15:44 Examination: LUNGS:Normal, CVS:Normal, MSK:Normal laboratory and microbiology Laboratory Tests 05/03/24 04:50 Test 05/03/24 04:50 Range/Units Serum Glucose 220 H 74-106 mg/dL Microbiology Date/Time Source Procedure Growth Status 05/02/24 02:31 Blood Blood Culture - Preliminary NO GROWTH AFTER 24 HOURS OF INCUBATION. Resulted 04/30/24 04:50 Voided Urine Urine Culture - Preliminary Presumptive Nini albicans Resulted 04/23/24 15:07 Gallbladder Fluid Gram Stain - Final Complete 04/23/24 15:07 Gallbladder Fluid Body Fluid Culture - Final Complete 04/17/24 17:53 Sputum Gram Stain - Final Complete 04/17/24 17:53 Respiratory Culture - Final Presumptive Nini albicans Complete 04/08/24 21:15 Nose MRSA Screen - Final Complete Problem List/Assessment/Plan Problem List/Assessment/Plan MELVINA secondary to hemodynamic mediated Acute respiratory failure, intubated on ventilator Septic shock Metabolic acidosis Urinary tract infection Sacral decubitus ulcers Hypoalbuminemia /transaminitis hypernatremia hypokalemia REC: Kidney function slightly continue to improve ^Bumex drip IV Add dopamine low dose Decreased IVF 1/2 NS with sodium bicarb at 50 cc/hour Renally dose antibiotics to GFR Discontinue vancomycin not a [place] [facility] candidate for dialysis--informed son pt is a candidate for comfort care /hospice--recommend goals of care discussion Plan discussed with: Other (Nurse) Dietary Evaluation Review Recommendations by RD: Protein Supplementation Comments: 1) If NPO > 7 days, consider EN/TPN to meet at least 75% of estimated daily energy needs. 2) Initiate Lucas @ 1 pk bid when medically feasible. 3) Advance diet to 60g CCHO/cardiac when medically feasible, pending SUPERVISOR TYPE BAR AND SEGMENT approval. 4) Continue to monitor nutrition-related labs. Expected Outcomes/Goals: 1) diet to advance 2) appetite and labs to improve 3) f/u in 3-5 days CC Plasma Assessment Blood Product Administration S: 12:55 JARROD JOHNSON MD May 03, 2024 10:51
[2024-05-03] MEDS: POTASSIUM CHL 20MEQ/100ML 100 ML IV SCH (10:59)
--- NOTE | 2024-05-03 13:48 | DVHPN2 ---
Reviewed: Care Plan, H&P, Labs, Medications, Previous Orders, Radiology Changes from previous H/P or p: No Changes General: Per HPI Objective Vitals Vital Signs Date Time Temp Pulse Resp B/P (MAP) Pulse Ox O2 Delivery O2 Flow Rate FiO2 05/03/24 13:24 98.1 101 18 96/53 98.1 05/03/24 12:06 98 30 05/03/24 12:00 Mechanical Ventilator+ Intake/Output Intake and Output 05/03/24 07:00 Intake Total 3686.264 ml Output Total 400 ml Balance 3286.264 ml Intake Oral 30 ml IV Total 3010.264 ml Tube Feeding 646 ml Output Urine Total 375 ml Drainage Total 25 ml Medications Current Medications Medications Dose Ordered Sig/Gus Route Start Time Stop Time Status Last Admin Dose Admin Diagnostic Test (Pha) 1 strip IQ4HR 04/08/24 04:00 05/03/24 12:00 1 STRIP Dextrose 50 ml UD PRN IV 04/08/24 00:15 04/13/24 10:15 50 ML Pantoprazole Sodium 40 mg DAILY IV 04/09/24 08:00 05/03/24 08:39 40 MG Midazolam HCl 50 ml @ 1 mls/hr Q24H IV 04/13/24 15:45 05/03/24 09:01 1 MLS/HR Enteral Nutritional Formula 1,000 ml 30ML/HR GT 04/15/24 08:45 05/03/24 03:45 1,000 ML Artificial Tears 1 drop Q6HP PRN EACHEYE 04/15/24 09:00 Insulin Human Regular HOLD INSULIN FOR BL... IQ4HR SC 04/18/24 16:00 05/03/24 03:44 4 UNITS Norepinephrine Bitartrate 250 ml @ 1.875 mls/ hr Q24H IV 04/20/24 16:15 05/03/24 09:04 28.125 MLS/HR Docusate Sodium 100 mg BID GT 04/22/24 10:00 05/03/24 08:39 100 MG Meropenem 50 ml @ 17 mls/hr Q12HR IV 04/22/24 22:00 05/03/24 10:10 17 MLS/HR Fentanyl Citrate 250 ml @ 2.5 mls/hr Q24H IV 04/22/24 23:20 05/03/24 05:12 10 MLS/HR Dopamine HCl/ Dextrose 250 ml @ 4.778 mls/ hr Q24H IV 04/28/24 15:45 05/01/24 22:26 4.778 MLS/HR Bumetanide 25 mg/ Miscellaneous 100 ml @ 4 mls/hr Q24H IV 04/29/24 12:30 05/03/24 08:07 4 MLS/HR Phenylephrine HCl 80 mg/Sodium Chloride 250 ml @ 7.5 mls/hr Q24H IV 04/30/24 08:15 Cancel Micafungin Sodium 100 mg/Sodium Chloride 100 ml @ 100 mls/hr DAILY IV 05/02/24 10:00 05/03/24 08:38 100 MLS/HR Vasopressin 20 units/Sodium Chloride 100 ml @ 9 mls/hr Q11H7M IV 05/03/24 07:30 Potassium Chloride 100 ml @ 50 mls/hr Q2H IV 05/03/24 09:45 05/03/24 15:44 05/03/24 11:45 50 MLS/HR Laboratory Results Laboratory Tests 05/03/24 04:50 Chemistry Test 05/03/24 04:50 Albumin 2.0 g/dL (3.2-4.8) L Calcium Level 8.6 mg/dL (8.7-10.4) L Magnesium Level 1.9 mg/dL (1.6-2.6) Total Protein 4.2 g/dL (5.7-8.2) L LFT Test 05/03/24 04:50 Alanine Aminotransferase (ALT) 25 U/L (7-40) Alkaline Phosphatase 444 U/L (46-116) H Aspartate Amino Transferase (AST) 96 U/L (13-40) H Total Bilirubin 11.6 mg/dL (0.2-1.0) H Urinalysis Test 04/10/24 10:21 04/17/24 23:15 04/30/24 04:50 05/01/24 14:10 Urine Osmolality 345 mOsm/kg Urine Protein/Creatinine Ratio 2.06 Urine Potassium 41 mmol/L (12-62) Urine Total Protein 100.4 mg/dL (1-14) H Urine WBC 7 /hpf (0 - 5) Urine Color Yellow (Yellow) Urine Clarity Turbid (Clear) H Urine pH 5.0 (5.0-9.0) Urine Specific [place] 1.011 (1.001-1.035) Urine Protein 1+ (Negative) H Urine Ketones Negative (Negative) Urine Blood 1+ /uL (Negative) H Urine Nitrite Negative (Negative) Urine Bilirubin 1+ (Negative) H Urine Urobilinogen 3 mg/dL (Negative) H Urine Leukocyte Esterase 3+ /uL (Negative) Urine RBC 11 /hpf (0 - 4) Urine WBC Clumps Present /hpf (None Seen) Urine Microscopic WBC 103 /HPF (0-5) H Urine Squamous Epithelial Cells Few /hpf (<5) Urine Calcium Oxalate Crystals Few (None Seen) Urine Bacteria Few /hpf (None Seen) H Urine Hyaline Casts Few /lpf (0 - 2) Urine Mucus Few (None Seen) Urine Yeast (Budding) Moderate /hpf (None Seen) Urine Glucose Normal mg/dL (Normal) Urine Creatinine 12.63 mg/dL (30.0-125.0) L Urine Sodium 62 mmol/L (40-220) Blood Gas Results Test 05/03/24 08:23 Arterial Blood pH 7.402 (7.350-7.450) FiO2 % 30.0 Microbiology Microbiology Date/Time Source Procedure Growth Status 05/02/24 02:31 Blood Blood Culture - Preliminary NO GROWTH AFTER 24 HOURS OF INCUBATION. Resulted 04/30/24 04:50 Voided Urine Urine Culture - Final Presumptive Nini albicans Complete 04/23/24 15:07 Gallbladder Fluid Gram Stain - Final Complete 04/23/24 15:07 Gallbladder Fluid Body Fluid Culture - Final Complete 04/17/24 17:53 Sputum Gram Stain - Final Complete 04/17/24 17:53 Respiratory Culture - Final Presumptive Nini albicans Complete 04/08/24 21:15 Nose MRSA Screen - Final Complete Labs and/or images reviewed: Labs reviewed by me, Image(s) reviewed by me Assessment/Plan Assessment/Plan Covering for resident physician Acute hypoxic respiratory failure on mechanical ventilator 30 percent FiO2 Dementia Septic shock CAD status post CABG History of DVT Acute on chronic systolic congestive heart failure Acalculous cholecystitis Transaminitis Patient seen in [facility] Time spent 65 minutes Condition guarded Plan discussed with: Patient My Orders Orders - AMANUEL MENDES MD Procedure Category Date Status Time Potassium Chl PHA 05/03/24 In Process 20meq/100ml 09:45 Date of Service: May 03, 2024 Billing Provider: AMANUEL MENDES MD Common Visit Codes: [id number] CARE 30-74 MIN AMANUEL MENDES MD May 03, 2024 13:48
--- NOTE | 2024-05-03 13:53 | DVHPN2 ---
Progress Note - Dictate Date Seen: May 03, 2024 Medical Necessity Reason Pt with a Central, PICC or Fol: Yes The following are medically ne: Central Line, PICC Line, Celaya Catheter Reason for celaya catheter: Strict I&O Subjective Patient was seen and valuated in follow up in the ICU. Patient is intubated and sedated on ventilator. FiO2 30%. Patient received wound care this morning. WBC 3.7, HGB 8.3, HCT 25.4, K 3, BUN 77, SHIP OFFICER 1.99, GLUC 220, AST 96. Chest x-ray shows basilar subsegmental atelectasis with low lung volumes and mild pulmonary vascular congestion, pu lmonary aeration has overall mildly improved. vital signs Vital Sign Date Time Temp Pulse Resp B/P (MAP) Pulse Ox O2 Delivery O2 Flow Rate FiO2 05/03/24 12:06 108 20 84/49 (61) 98 30 05/03/24 06:45 97.7 207.9 05/03/24 06:00 Mechanical Ventilator+ Total Intake and Output 05/02/24 05/02/24 05/03/24 15:00 23:00 07:00 Intake Total 1216.849 ml 1286.274 ml 1183.141 ml Output Total 185 ml 215 ml Balance 1216.849 ml 1101.274 ml 968.141 ml medications Current Medications Medications Dose Ordered Sig/Gus Route Start Time Stop Time Status Last Admin Dose Admin Diagnostic Test (Pha) 1 strip IQ4HR 04/08/24 04:00 05/03/24 08:07 1 STRIP Dextrose 50 ml UD PRN IV 04/08/24 00:15 04/13/24 10:15 50 ML Pantoprazole Sodium 40 mg DAILY IV 04/09/24 08:00 05/03/24 08:39 40 MG Midazolam HCl 50 ml @ 1 mls/hr Q24H IV 04/13/24 15:45 05/03/24 09:01 1 MLS/HR Enteral Nutritional Formula 1,000 ml 30ML/HR GT 04/15/24 08:45 05/03/24 03:45 1,000 ML Artificial Tears 1 drop Q6HP PRN EACHEYE 04/15/24 09:00 Insulin Human Regular HOLD INSULIN FOR BL... IQ4HR SC 04/18/24 16:00 05/03/24 03:44 4 UNITS Norepinephrine Bitartrate 250 ml @ 1.875 mls/ hr Q24H IV 04/20/24 16:15 05/03/24 09:04 28.125 MLS/HR Docusate Sodium 100 mg BID GT 04/22/24 10:00 05/03/24 08:39 100 MG Meropenem 50 ml @ 17 mls/hr Q12HR IV 04/22/24 22:00 05/03/24 10:10 17 MLS/HR Fentanyl Citrate 250 ml @ 2.5 mls/hr Q24H IV 04/22/24 23:20 05/03/24 05:12 10 MLS/HR Dopamine HCl/ Dextrose 250 ml @ 4.778 mls/ hr Q24H IV 04/28/24 15:45 05/01/24 22:26 4.778 MLS/HR Bumetanide 25 mg/ Miscellaneous 100 ml @ 4 mls/hr Q24H IV 04/29/24 12:30 05/03/24 08:07 4 MLS/HR Phenylephrine HCl 80 mg/Sodium Chloride 250 ml @ 7.5 mls/hr Q24H IV 04/30/24 08:15 Cancel Micafungin Sodium 100 mg/Sodium Chloride 100 ml @ 100 mls/hr DAILY IV 05/02/24 10:00 05/03/24 08:38 100 MLS/HR Vasopressin 20 units/Sodium Chloride 100 ml @ 9 mls/hr Q11H7M IV 05/03/24 07:30 Potassium Chloride 100 ml @ 50 mls/hr Q2H IV 05/03/24 09:45 05/03/24 15:44 05/03/24 10:59 50 MLS/HR objective GENERAL: Intubated on ventilator. LUNGS: Decreased breath sounds. CARDIOVASCULAR: Heart sounds are good. ABDOMEN: Soft. EXT: +1 pitting edema. laboratory and microbiology Laboratory Tests 05/03/24 04:50 Test 05/03/24 04:50 Range/Units Serum Glucose 220 H 74-106 mg/dL Problem List Questionable atrial fibrillation (takes Eliquis at home). Coronary artery disease status post triple-vessel CABG. Acute on chronic HFrEF, NYHA class III. Sepsis. Hypertension. Hyperlipidemia. CVA with right-sided deficit. Chronic kidney disease. Type 2 diabetes mellitus. Transaminitis. Anemia. Osteoporosis. Dementia. Bed-bound. Assessment/Plan Continued all current supportive medical care. IV antibiotics as ordered. GI prophylactics. Vasopressors for hemodynamic support. Additional plan as per the hospital course. Critical care time of 45 minutes provided to include time spent evaluation of patient at bedside, when appropriate patient/family education for diagnosis, treatment plan, review of pertinent medical information and discussion of care with specialty providers and PCP. Mechanical ventilator parameters, treatment and adjustments have personally been reviewed by me and treatment plan by federal air marshal has also been reviewed. Dietary Evaluation Review Recommendations by RD: Protein Supplementation Comments: 1) If NPO > 7 days, consider EN/TPN to meet at least 75% of estimated daily energy needs. 2) Initiate Lucas @ 1 pk bid when medically feasible. 3) Advance diet to 60g CCHO/cardiac when medically feasible, pending CONSULTING NURSE approval. 4) Continue to monitor nutrition-related labs. Expected Outcomes/Goals: 1) diet to advance 2) appetite and labs to improve 3) f/u in 3-5 days Plan discussed with: Other CC Plasma Assessment Blood Product Administration S: 12:55 JONNA MAGANA MD May 03, 2024 12:14
[2024-05-03] MEDS: LACTULOSE 20Gm/30ML SOLN PO ONE (18:25)
--- NOTE | 2024-05-03 22:59 | DVHPN2 ---
Progress Note - Dictate Date Seen: May 03, 2024 Medical Necessity Reason Pt with a Central, PICC or Fol: Yes The following are medically ne: Central Line, PICC Line, Celaya Catheter Reason for celaya catheter: Strict I&O Subjective Patient seen and examined at bedside. Sedated, intubated on mechanical ventilator. Overnight events reviewed. vital signs Vital Sign Date Time Temp Pulse Resp B/P (MAP) Pulse Ox O2 Delivery O2 Flow Rate FiO2 05/03/24 22:45 97.7 108 18 107/60 (76) 98 207.9 05/03/24 22:36 30 05/03/24 22:00 Mechanical Ventilator+ Total Intake and Output 05/02/24 05/02/24 05/03/24 15:00 23:00 07:00 Intake Total 1216.849 ml 1286.274 ml 1231.044 ml Output Total 185 ml 215 ml Balance 1216.849 ml 1101.274 ml 1016.044 ml medications Current Medications Medications Dose Ordered Sig/Gus Route Start Time Stop Time Status Last Admin Dose Admin Diagnostic Test (Pha) 1 strip IQ4HR 04/08/24 04:00 05/03/24 20:43 1 STRIP Dextrose 50 ml UD PRN IV 04/08/24 00:15 04/13/24 10:15 50 ML Pantoprazole Sodium 40 mg DAILY IV 04/09/24 08:00 05/03/24 08:39 40 MG Midazolam HCl 50 ml @ 1 mls/hr Q24H IV 04/13/24 15:45 05/03/24 09:01 1 MLS/HR Enteral Nutritional Formula 1,000 ml 30ML/HR GT 04/15/24 08:45 05/03/24 03:45 1,000 ML Artificial Tears 1 drop Q6HP PRN EACHEYE 04/15/24 09:00 Insulin Human Regular HOLD INSULIN FOR BL... IQ4HR SC 04/18/24 16:00 05/03/24 03:44 4 UNITS Norepinephrine Bitartrate 250 ml @ 1.875 mls/ hr Q24H IV 04/20/24 16:15 05/03/24 15:56 31.875 MLS/HR Docusate Sodium 100 mg BID GT 04/22/24 10:00 05/03/24 21:17 100 MG Meropenem 50 ml @ 17 mls/hr Q12HR IV 04/22/24 22:00 05/03/24 21:17 17 MLS/HR Fentanyl Citrate 250 ml @ 2.5 mls/hr Q24H IV 04/22/24 23:20 05/03/24 16:18 10 MLS/HR Dopamine HCl/ Dextrose 250 ml @ 4.778 mls/ hr Q24H IV 04/28/24 15:45 05/03/24 15:52 4.778 MLS/HR Bumetanide 25 mg/ Miscellaneous 100 ml @ 4 mls/hr Q24H IV 04/29/24 12:30 05/03/24 08:07 4 MLS/HR Phenylephrine HCl 80 mg/Sodium Chloride 250 ml @ 7.5 mls/hr Q24H IV 04/30/24 08:15 Cancel Micafungin Sodium 100 mg/Sodium Chloride 100 ml @ 100 mls/hr DAILY IV 05/02/24 10:00 05/03/24 08:38 100 MLS/HR Vasopressin 20 units/Sodium Chloride 100 ml @ 9 mls/hr Q11H7M IV 05/03/24 07:30 objective Gen.: Patient lying in bed in medical ICU. Sedated, intubated on mechanical ventilator. Head: Normocephalic, atraumatic. Eyes: PERRLA. Ears: Normal external anatomy. Throat: Endotracheal tube and orogastric tube in place. Neck: Supple, trachea midline. Chest: Transmitted breath sounds bilaterally. Decreased air entry bilaterally. No wheezing. Bibasilar crackles. Cardiovascular: Positive S1, positive S2. Regular rate and rhythm. Abdomen: Positive bowel sounds in all 4 quadrants. Soft, nontender, nondistended. : Celaya in place. Normal external genitalia. Rectal: Deferred. Skin: Warm, dry. Intact. Extremities: 2+ radial pulses bilaterally. No lower extremity edema. Neuro: Sedated laboratory and microbiology Laboratory Tests 05/03/24 04:50 Test 05/03/24 04:50 Range/Units Serum Glucose 220 H 74-106 mg/dL Assessment/Plan Impression: Acute hypoxic respiratory failure On mechanical ventilator Shock Acute metabolic encephalopathy Aspiration pneumonia Events: Remains on vent support On AC mode; RR 18, VT 400, PEEP 5, FiO2 30% On pressors for hemodynamic support Levophed 16 mcg/min, dopamine 2 mcg/min Titrate to keep mean arterial pressure greater than 65 mmHg. Versed for sedation On Fentanyl drip for analgesia ABG reviewed, compensated CXR reviewed, demonstrates bibasilar subsegmental atelectasis with low lung volumes and mild pulmonary vascular congestion. Improved aeration. Devices in place. Continue wound care. Continue antibiotics Monitor hemoglobin Monitor platelets Tube feeds for nutritional support Diurese as tolerated w/ Bumex Monitor renal function Monitor electrolytes. Supplement as necessary. Potassium supplementation Patient is not a candidate for HD. Patient is not tolerating turns. Poor prognosis - poor chance of meaningful recovery. SBT/ROBBI. Labs and imaging reviewed. Rest of plan as noted below. Plan: s/p intubation on mechanical ventilator. CXR image and report reviewed. Devices in place. Airspace disease worsening in the left lower lobe. No pneumothorax. No pleural effusion. On AC mode; RR 18, VT 400, PEEP 5, FiO2 30% Titrate FIO2 to keep O2 saturation above 90%. VAP bundle. Daily ABG and CXR while intubated Sedated Continue antibiotics. F/u cultures. On pressors for hemodynamic support Titrate to keep mean arterial pressure greater than 65 mmHg. Monitor renal function Monitor electrolytes. Supplement as necessary. Monitor ins and outs. Maintain euvolemia. GI prophylaxis. DVT prophylaxis. Prognosis: Poor given patient's multiple co-morbidities. Condition: Critical Rest of plan per hospitalist and other consultants. A total of 35 minutes of critical care time was spent reviewing the patient record, examining the patient, making a diagnostic and therapeutic plan, discussing this plan with the medical personnel, following up on diagnostic studies and following the patient for clinical stability excluding any and all procedures. At least 50% of this time was spent in direct, [id number] contact. Thank you Dr. Curiel for allowing me to participate in this patient's care. Further recommendations will depend on the patient's clinical course. Please do not hesitate to contact me if you have any questions or concerns. This medical document was created using an electronic medical record system with [employer] system. Although these documentations are being carefully reviewed, there may still be some phonetic and typographical changes. The errors are purely typographical, due to imperfection on the software program, and do not reflect any compromise in the patient's medical care. Dietary Evaluation Review Recommendations by RD: Protein Supplementation Comments: 1) If NPO > 7 days, consider EN/TPN to meet at least 75% of estimated daily energy needs. 2) Initiate Lucas @ 1 pk bid when medically feasible. 3) Advance diet to 60g CCHO/cardiac when medically feasible, pending BUSINESS DEVELOPMENT INTERN approval. 4) Continue to monitor nutrition-related labs. Expected Outcomes/Goals: 1) diet to advance 2) appetite and labs to improve 3) f/u in 3-5 days Plan discussed with: Other (ENRIQUE Sood) Critical Care Time(min): 35 CC Plasma Assessment Blood Product Administration S: 12:55 GUILLERMIAN WILLSON MD May 03, 2024 22:59
[2024-05-04] VITALS (204 sets, daily range): BP systolic 47–143; BP diastolic 17–72; PULSE 54–107; RESP 13–26; TEMP 69.8–97.9; O2SAT 11–100
[2024-05-04 05:50] LABS: Hemoglobin 8.3 g/dL (12.2-16.2); White Blood Cell 5.7 10^3/uL (4.4-10.8)
[2024-05-04 05:52] LABS: Hematocrit 25.2 % (36.0-46.0); Mean Corpuscular Hemoglobin 31.9 pg (28.0-32.0); Mean Corpuscular Hgb Conc. 32.8 g/dL (32.0-36.0); Mean Corpuscular Volume 97.2 fL (80.0-100.0); Platelet Count (auto) 31 10^3/uL (140-450); Red Blood Cells 2.59 10^6/uL (4.0-5.20); Red Cell Distribution Width 22.6 % (11.8-14.3)
--- NOTE | 2024-05-04 05:54 | DVH ---
CHEST RADIOGRAPH Indication: VENTILATED Technique: Single frontal view of the chest was obtained Comparison: XY CHEST PORTABLE on DOS: 05/03/24, XY CHEST PORTABLE on DOS: 05/02/24, XY CHEST PORTABLE o n DOS: 05/01/24 IMPRESSION: Support lines and tubes appear unchanged in position. Enteric tube tip is just beyond the gastroesop hageal junction. Bibasilar changes appear similar. No pneumothorax. No significant interval change.
[2024-05-04 05:57] LABS: Basophils % (manual) 0 (0.0-2.0); Blast Cells 0; Eosinophils % (manual) 0 (0-7); Metamyelocytes % 0; Myelocytes % 0; Promyelocytes % 0; Reactive Lymphocytes 0
[2024-05-04 05:58] LABS: Anion Gap 18 (5-15); Chloride 104 mmol/L (98-107); Potassium 3.8 mmol/L (3.5-5.1); Sodium 138 mmol/L (136-145)
[2024-05-04 05:59] LABS: Calcium 8.7 mg/dL (8.7-10.4)
[2024-05-04 06:11] LABS: BUN/Creatinine Ratio 37.6 (10.0-20.0)
[2024-05-04 06:12] LABS: Blood Urea Nitrogen 77 mg/dL (9-23); Carbon Dioxide 16 mmol/L (20-31); Glucose 183 mg/dL (74-106)
[2024-05-04 06:41] LABS: Band Neutrophils % (manual) 6; Lymphocytes % (manual) 6 (10.0-50.0); Monocytes % (manual) 4 (0-12)
[2024-05-04 06:42] LABS: Platelet Estimate Adequate
[2024-05-04 07:45] LABS: Base Excess -12.2 mmol/L (-2.0-3.0)
--- NOTE | 2024-05-04 10:24 | DVHPN2 ---
Progress Note Date Seen: May 04, 2024 Medical Necessity Reason Pt with a Central, PICC or Fol: Yes The following are medically ne: Central Line, PICC Line, Celaya Catheter Reason for celaya catheter: Strict I&O Subjective Review of Systems: RESPIRATORY:Abnormal Other Systems: Patient seen and examined by myself today in follow-up Patient remained intubated on ventilator Objective vital signs Vital Sign Date Time Temp Pulse Resp B/P (MAP) Pulse Ox O2 Delivery O2 Flow Rate FiO2 05/04/24 10:01 95 26 116/47 (70) 98 30 05/04/24 09:00 97.3 207.1 05/04/24 08:00 Mechanical Ventilator+ Total Intake and Output 05/03/24 05/03/24 05/04/24 15:00 23:00 07:00 Intake Total 851.339 ml 863.349 ml 383.571 ml Output Total 160 ml 105 ml Balance 851.339 ml 703.349 ml 278.571 ml medications Current Medications Medications Dose Ordered Sig/Gus Route Start Time Stop Time Status Last Admin Dose Admin Diagnostic Test (Pha) 1 strip IQ4HR 04/08/24 04:00 05/04/24 07:53 1 STRIP Dextrose 50 ml UD PRN IV 04/08/24 00:15 04/13/24 10:15 50 ML Pantoprazole Sodium 40 mg DAILY IV 04/09/24 08:00 05/04/24 08:01 40 MG Midazolam HCl 50 ml @ 1 mls/hr Q24H IV 04/13/24 15:45 05/03/24 09:01 1 MLS/HR Enteral Nutritional Formula 1,000 ml 30ML/HR GT 04/15/24 08:45 05/03/24 03:45 1,000 ML Artificial Tears 1 drop Q6HP PRN EACHEYE 04/15/24 09:00 Insulin Human Regular HOLD INSULIN FOR BL... IQ4HR SC 04/18/24 16:00 05/03/24 03:44 4 UNITS Norepinephrine Bitartrate 250 ml @ 1.875 mls/ hr Q24H IV 04/20/24 16:15 05/04/24 07:52 31.875 MLS/HR Docusate Sodium 100 mg BID GT 04/22/24 10:00 05/04/24 08:00 100 MG Meropenem 50 ml @ 17 mls/hr Q12HR IV 04/22/24 22:00 05/04/24 08:01 17 MLS/HR Fentanyl Citrate 250 ml @ 2.5 mls/hr Q24H IV 04/22/24 23:20 05/03/24 16:18 10 MLS/HR Dopamine HCl/ Dextrose 250 ml @ 4.778 mls/ hr Q24H IV 04/28/24 15:45 05/03/24 15:52 4.778 MLS/HR Bumetanide 25 mg/ Miscellaneous 100 ml @ 4 mls/hr Q24H IV 04/29/24 12:30 05/04/24 05:46 4 MLS/HR Phenylephrine HCl 80 mg/Sodium Chloride 250 ml @ 7.5 mls/hr Q24H IV 04/30/24 08:15 Cancel Micafungin Sodium 100 mg/Sodium Chloride 100 ml @ 100 mls/hr DAILY IV 05/02/24 10:00 05/04/24 08:01 100 MLS/HR Vasopressin 20 units/Sodium Chloride 100 ml @ 9 mls/hr Q11H7M IV 05/03/24 07:30 Examination: LUNGS:Normal, CVS:Normal, MSK:Abnormal laboratory and microbiology Laboratory Tests 05/04/24 04:56 Test 05/04/24 04:56 Range/Units Serum Glucose 183 H 74-106 mg/dL Microbiology Date/Time Source Procedure Growth Status 05/02/24 02:31 Blood Blood Culture - Preliminary NO GROWTH AFTER 48 HOURS OF INCUBATION. Resulted 05/02/24 02:00 Catheter Tip Aerobic Culture - Preliminary Resulted 04/30/24 04:50 Voided Urine Urine Culture - Final Presumptive Nini albicans Complete 04/23/24 15:07 Gallbladder Fluid Gram Stain - Final Complete 04/23/24 15:07 Gallbladder Fluid Body Fluid Culture - Final Complete 04/17/24 17:53 Sputum Gram Stain - Final Complete 04/17/24 17:53 Respiratory Culture - Final Presumptive Nini albicans Complete Problem List/Assessment/Plan Problem List/Assessment/Plan MELVINA secondary to hemodynamic mediated, FeNa < 1% Acute respiratory failure, intubated on ventilator Septic shock Metabolic acidosis Urinary tract infection Sacral decubitus ulcers Hypoalbuminemia /transaminitis hypernatremia hypokalemia REC: Kidney function slightly continue to improve Celaya catheter Strict I&Os ^Bumex drip IV dopamine low dose DC IV fluids Renally dose antibiotics to GFR Discontinue vancomycin not a fpc candidate for dialysis--informed son pt is a candidate for comfort care /hospice--recommend goals of care discussion Plan discussed with: Other (Nurse) Dietary Evaluation Review Recommendations by RD: Protein Supplementation Comments: 1) If NPO > 7 days, consider EN/TPN to meet at least 75% of estimated daily energy needs. 2) Initiate Lucas @ 1 pk bid when medically feasible. 3) Advance diet to 60g CCHO/cardiac when medically feasible, pending MOLD MAINTENANCE TECHNICIAN approval. 4) Continue to monitor nutrition-related labs. Expected Outcomes/Goals: 1) diet to advance 2) appetite and labs to improve 3) f/u in 3-5 days CC Plasma Assessment Blood Product Administration S: 12:55 JARROD JOHNSON MD May 04, 2024 10:24
--- NOTE | 2024-05-04 11:03 | DVHPN2 ---
Reviewed: Care Plan, H&P, Labs, Medications, Previous Orders, Radiology Changes from previous H/P or p: No Changes General: Per HPI Objective Vitals Vital Signs Date Time Temp Pulse Resp B/P (MAP) Pulse Ox O2 Delivery O2 Flow Rate FiO2 05/04/24 10:01 95 26 116/47 (70) 98 30 05/04/24 09:00 97.3 207.1 05/04/24 08:00 Mechanical Ventilator+ Intake/Output Intake and Output 05/04/24 07:00 Intake Total 2098.259 ml Output Total 265 ml Balance 1833.259 ml Intake Oral 40 ml IV Total 1660.259 ml Tube Feeding 60 ml Blood Product 338 ml Output Urine Total 250 ml Drainage Total 15 ml Medications Current Medications Medications Dose Ordered Sig/Gus Route Start Time Stop Time Status Last Admin Dose Admin Diagnostic Test (Pha) 1 strip IQ4HR 04/08/24 04:00 05/04/24 07:53 1 STRIP Dextrose 50 ml UD PRN IV 04/08/24 00:15 04/13/24 10:15 50 ML Pantoprazole Sodium 40 mg DAILY IV 04/09/24 08:00 05/04/24 08:01 40 MG Midazolam HCl 50 ml @ 1 mls/hr Q24H IV 04/13/24 15:45 05/03/24 09:01 1 MLS/HR Enteral Nutritional Formula 1,000 ml 30ML/HR GT 04/15/24 08:45 05/03/24 03:45 1,000 ML Artificial Tears 1 drop Q6HP PRN EACHEYE 04/15/24 09:00 Insulin Human Regular HOLD INSULIN FOR BL... IQ4HR SC 04/18/24 16:00 05/03/24 03:44 4 UNITS Norepinephrine Bitartrate 250 ml @ 1.875 mls/ hr Q24H IV 04/20/24 16:15 05/04/24 07:52 31.875 MLS/HR Docusate Sodium 100 mg BID GT 04/22/24 10:00 05/04/24 08:00 100 MG Meropenem 50 ml @ 17 mls/hr Q12HR IV 04/22/24 22:00 05/04/24 08:01 17 MLS/HR Fentanyl Citrate 250 ml @ 2.5 mls/hr Q24H IV 04/22/24 23:20 05/03/24 16:18 10 MLS/HR Dopamine HCl/ Dextrose 250 ml @ 4.778 mls/ hr Q24H IV 04/28/24 15:45 05/03/24 15:52 4.778 MLS/HR Bumetanide 25 mg/ Miscellaneous 100 ml @ 4 mls/hr Q24H IV 04/29/24 12:30 05/04/24 05:46 4 MLS/HR Phenylephrine HCl 80 mg/Sodium Chloride 250 ml @ 7.5 mls/hr Q24H IV 04/30/24 08:15 Cancel Micafungin Sodium 100 mg/Sodium Chloride 100 ml @ 100 mls/hr DAILY IV 05/02/24 10:00 05/04/24 08:01 100 MLS/HR Vasopressin 20 units/Sodium Chloride 100 ml @ 9 mls/hr Q11H7M IV 05/03/24 07:30 Laboratory Results Laboratory Tests 05/04/24 04:56 Chemistry Test 05/04/24 04:56 Calcium Level 8.7 mg/dL (8.7-10.4) Magnesium Level 2.0 mg/dL (1.6-2.6) Urinalysis Test 04/10/24 10:21 04/17/24 23:15 04/30/24 04:50 05/01/24 14:10 Urine Osmolality 345 mOsm/kg Urine Protein/Creatinine Ratio 2.06 Urine Potassium 41 mmol/L (12-62) Urine Total Protein 100.4 mg/dL (1-14) H Urine WBC 7 /hpf (0 - 5) Urine Color Yellow (Yellow) Urine Clarity Turbid (Clear) H Urine pH 5.0 (5.0-9.0) Urine Specific [place] 1.011 (1.001-1.035) Urine Protein 1+ (Negative) H Urine Ketones Negative (Negative) Urine Blood 1+ /uL (Negative) H Urine Nitrite Negative (Negative) Urine Bilirubin 1+ (Negative) H Urine Urobilinogen 3 mg/dL (Negative) H Urine Leukocyte Esterase 3+ /uL (Negative) Urine RBC 11 /hpf (0 - 4) Urine WBC Clumps Present /hpf (None Seen) Urine Microscopic WBC 103 /HPF (0-5) H Urine Squamous Epithelial Cells Few /hpf (<5) Urine Calcium Oxalate Crystals Few (None Seen) Urine Bacteria Few /hpf (None Seen) H Urine Hyaline Casts Few /lpf (0 - 2) Urine Mucus Few (None Seen) Urine Yeast (Budding) Moderate /hpf (None Seen) Urine Glucose Normal mg/dL (Normal) Urine Creatinine 12.63 mg/dL (30.0-125.0) L Urine Sodium 62 mmol/L (40-220) Blood Gas Results Test 05/04/24 07:38 Arterial Blood pH 7.338 (7.350-7.450) FiO2 % 30.0 Microbiology Microbiology Date/Time Source Procedure Growth Status 05/02/24 02:31 Blood Blood Culture - Preliminary NO GROWTH AFTER 48 HOURS OF INCUBATION. Resulted 05/02/24 02:00 Catheter Tip Aerobic Culture - Preliminary Resulted 04/30/24 04:50 Voided Urine Urine Culture - Final Presumptive Nini albicans Complete 04/23/24 15:07 Gallbladder Fluid Gram Stain - Final Complete 04/23/24 15:07 Gallbladder Fluid Body Fluid Culture - Final Complete 04/17/24 17:53 Sputum Gram Stain - Final Complete 04/17/24 17:53 Respiratory Culture - Final Presumptive Nini albicans Complete Labs and/or images reviewed: Labs reviewed by me, Image(s) reviewed by me Assessment/Plan Assessment/Plan Covering for resident physician Acute hypoxic respiratory failure on mechanical ventilator 30 % FiO2 Dementia Septic shock CAD status post CABG History of DVT Acute on chronic systolic congestive heart failure Acalculous cholecystitis Transaminitis Patient seen in [facility] Time spent 66 minutes Condition guarded Continue current management Plan discussed with: Patient Date of Service: May 04, 2024 Billing Provider: AMANUEL MENDES MD Common Visit Codes: [id number] CARE 30-74 MIN AMANUEL MENDES MD May 04, 2024 11:03
[2024-05-04] MEDS: NOREPINEPHRINE BITARTRATE 32 MG in SODIUM CHL 0.9% 218 ML IV SCH (13:15)
[2024-05-04] MEDS: PHENYLEPHRINE INJ 80 MG in SODIUM CHL 0.9% 242 ML IV SCH (14:37)
[2024-05-04] MEDS: EPINEPHrine HCL INJECTION 16 MG in D5W 5% 234 ML IV SCH (15:00)
[2024-05-04] MEDS: DEXTROSE 50% SYRINGE 100 ML IV ONE (16:58)
[2024-05-04] MEDS: DEXTROSE (50%) 50ML SYRG IV ONE (17:00)
[2024-05-04] MEDS ORDERED: DEXTROSE (50%) 50ML SYRG IV PRN (17:45)
--- NOTE | 2024-05-04 19:04 | DVHPN2 ---
Progress Note - Dictate Date Seen: May 04, 2024 Medical Necessity Reason Pt with a Central, PICC or Fol: Yes The following are medically ne: Central Line, PICC Line, Celaya Catheter Reason for celaya catheter: Strict I&O Subjective Patient was seen and valuated in follow up in the ICU. Patient is intubated and sedated on ventilator. FiO2 30%. HGB 8.3, HCT 25.2, BUN 77, DECORATOR LIGHTING FIXTURES 2.05. Chest x- ray is unchanged. vital signs Vital Sign Date Time Temp Pulse Resp B/P (MAP) Pulse Ox O2 Delivery O2 Flow Rate FiO2 05/04/24 12:00 96.8 92 18 106/58 (74) 93 206.2 05/04/24 11:44 30 05/04/24 08:00 Mechanical Ventilator+ Total Intake and Output 05/03/24 05/03/24 05/04/24 15:00 23:00 07:00 Intake Total 851.339 ml 863.349 ml 383.571 ml Output Total 160 ml 105 ml Balance 851.339 ml 703.349 ml 278.571 ml medications Current Medications Medications Dose Ordered Sig/Gus Route Start Time Stop Time Status Last Admin Dose Admin Diagnostic Test (Pha) 1 strip IQ4HR 04/08/24 04:00 05/04/24 12:00 1 STRIP Dextrose 50 ml UD PRN IV 04/08/24 00:15 04/13/24 10:15 50 ML Pantoprazole Sodium 40 mg DAILY IV 04/09/24 08:00 05/04/24 08:01 40 MG Midazolam HCl 50 ml @ 1 mls/hr Q24H IV 04/13/24 15:45 05/03/24 09:01 1 MLS/HR Enteral Nutritional Formula 1,000 ml 30ML/HR GT 04/15/24 08:45 05/03/24 03:45 1,000 ML Artificial Tears 1 drop Q6HP PRN EACHEYE 04/15/24 09:00 Insulin Human Regular HOLD INSULIN FOR BL... IQ4HR SC 04/18/24 16:00 05/03/24 03:44 4 UNITS Norepinephrine Bitartrate 250 ml @ 1.875 mls/ hr Q24H IV 04/20/24 16:15 05/04/24 07:52 31.875 MLS/HR Docusate Sodium 100 mg BID GT 04/22/24 10:00 05/04/24 08:00 100 MG Meropenem 50 ml @ 17 mls/hr Q12HR IV 04/22/24 22:00 05/04/24 08:01 17 MLS/HR Fentanyl Citrate 250 ml @ 2.5 mls/hr Q24H IV 04/22/24 23:20 05/04/24 11:14 10 MLS/HR Dopamine HCl/ Dextrose 250 ml @ 4.778 mls/ hr Q24H IV 04/28/24 15:45 05/03/24 15:52 4.778 MLS/HR Bumetanide 25 mg/ Miscellaneous 100 ml @ 4 mls/hr Q24H IV 04/29/24 12:30 05/04/24 05:46 4 MLS/HR Phenylephrine HCl 80 mg/Sodium Chloride 250 ml @ 7.5 mls/hr Q24H IV 04/30/24 08:15 Cancel Micafungin Sodium 100 mg/Sodium Chloride 100 ml @ 100 mls/hr DAILY IV 05/02/24 10:00 05/04/24 08:01 100 MLS/HR Vasopressin 20 units/Sodium Chloride 100 ml @ 9 mls/hr Q11H7M IV 05/03/24 07:30 Phenylephrine HCl 80 mg/Sodium Chloride 250 ml @ 7.5 mls/hr Q24H IV 05/04/24 13:15 Norepinephrine Bitartrate 32 mg/ Sodium Chloride 250 ml @ 0.938 mls/ hr Q24H IV 05/04/24 13:15 Epinephrine HCl 16 mg/Dextrose 250 ml @ 1.875 mls/ hr Q24H IV 05/04/24 13:15 objective GENERAL: Intubated on ventilator. LUNGS: Decreased breath sounds. CARDIOVASCULAR: Heart sounds are good. ABDOMEN: Soft. EXT: +1 pitting edema. laboratory and microbiology Laboratory Tests 05/04/24 04:56 Test 05/04/24 04:56 Range/Units Serum Glucose 183 H 74-106 mg/dL Problem List Questionable atrial fibrillation (takes Eliquis at home). Coronary artery disease status post triple-vessel CABG. Acute on chronic HFrEF, NYHA class III. Sepsis. Hypertension. Hyperlipidemia. CVA with right-sided deficit. Chronic kidney disease. Type 2 diabetes mellitus. Transaminitis. Anemia. Osteoporosis. Dementia. Bed-bound. Assessment/Plan Continued all current supportive medical care. IV antibiotics as ordered. GI prophylactics. Vasopressors for hemodynamic support. Additional plan as per the hospital course. Critical care time of 45 minutes provided to include time spent evaluation of patient at bedside, when appropriate patient/family education for diagnosis, treatment plan, review of pertinent medical information and discussion of care with specialty providers and PCP. Mechanical ventilator parameters, treatment and adjustments have personally been reviewed by me and treatment plan by corporate relations director has also been reviewed. Dietary Evaluation Review Recommendations by RD: Protein Supplementation Comments: 1) If NPO > 7 days, consider EN/TPN to meet at least 75% of estimated daily energy needs. 2) Initiate Lucas @ 1 pk bid when medically feasible. 3) Advance diet to 60g CCHO/cardiac when medically feasible, pending LITHOGRAPHERS PRINTER approval. 4) Continue to monitor nutrition-related labs. Expected Outcomes/Goals: 1) diet to advance 2) appetite and labs to improve 3) f/u in 3-5 days Plan discussed with: Other CC Plasma Assessment Blood Product Administration S: 12:55 JONNA MAGANA MD May 04, 2024 13:24
[2024-05-04] MEDS: VASOPRESSIN 20 UNIT/ML ONE (19:48)
[2024-05-04] MEDS: HYDROCORTISONE SOD SUCC 100 MG/2ML INJ VIAL IV SCH (21:06)
--- NOTE | 2024-05-04 22:33 | DVHPN2 ---
Progress Note - Dictate Date Seen: May 04, 2024 Medical Necessity Reason Pt with a Central, PICC or Fol: Yes The following are medically ne: Central Line, PICC Line, Celaya Catheter Reason for celaya catheter: Strict I&O Subjective Patient seen and examined at bedside. intubated on mechanical ventilator. Overnight events reviewed. vital signs Vital Sign Date Time Temp Pulse Resp B/P (MAP) Pulse Ox O2 Delivery O2 Flow Rate FiO2 05/04/24 22:17 56 18 22 30 05/04/24 20:00 Mechanical Ventilator+ 05/04/24 20:00 94.5 202.1 Total Intake and Output 05/03/24 05/03/24 05/04/24 15:00 23:00 07:00 Intake Total 851.339 ml 863.349 ml 403.349 ml Output Total 160 ml 105 ml Balance 851.339 ml 703.349 ml 298.349 ml medications Current Medications Medications Dose Ordered Sig/Gus Route Start Time Stop Time Status Last Admin Dose Admin Diagnostic Test (Pha) 1 strip IQ4HR 04/08/24 04:00 05/04/24 20:00 1 STRIP Dextrose 50 ml UD PRN IV 04/08/24 00:15 04/13/24 10:15 50 ML Pantoprazole Sodium 40 mg DAILY IV 04/09/24 08:00 05/04/24 08:01 40 MG Midazolam HCl 50 ml @ 1 mls/hr Q24H IV 04/13/24 15:45 05/03/24 09:01 1 MLS/HR Enteral Nutritional Formula 1,000 ml 30ML/HR GT 04/15/24 08:45 05/03/24 03:45 1,000 ML Artificial Tears 1 drop Q6HP PRN EACHEYE 04/15/24 09:00 Insulin Human Regular HOLD INSULIN FOR BL... IQ4HR SC 04/18/24 16:00 05/03/24 03:44 4 UNITS Docusate Sodium 100 mg BID GT 04/22/24 10:00 05/04/24 08:00 100 MG Meropenem 50 ml @ 17 mls/hr Q12HR IV 04/22/24 22:00 05/04/24 21:09 17 MLS/HR Fentanyl Citrate 250 ml @ 2.5 mls/hr Q24H IV 04/22/24 23:20 05/04/24 11:14 10 MLS/HR Dopamine HCl/ Dextrose 250 ml @ 4.778 mls/ hr Q24H IV 04/28/24 15:45 05/04/24 15:45 4.778 MLS/HR Bumetanide 25 mg/ Miscellaneous 100 ml @ 4 mls/hr Q24H IV 04/29/24 12:30 05/04/24 05:46 4 MLS/HR Phenylephrine HCl 80 mg/Sodium Chloride 250 ml @ 7.5 mls/hr Q24H IV 04/30/24 08:15 Cancel Micafungin Sodium 100 mg/Sodium Chloride 100 ml @ 100 mls/hr DAILY IV 05/02/24 10:00 05/04/24 08:01 100 MLS/HR Vasopressin 20 units/Sodium Chloride 100 ml @ 9 mls/hr Q11H7M IV 05/03/24 07:30 05/04/24 21:07 9 MLS/HR Phenylephrine HCl 80 mg/Sodium Chloride 250 ml @ 7.5 mls/hr Q24H IV 05/04/24 13:15 05/04/24 20:49 33.75 MLS/HR Norepinephrine Bitartrate 32 mg/ Sodium Chloride 250 ml @ 0.938 mls/ hr Q24H IV 05/04/24 13:15 05/04/24 13:50 14.063 MLS/HR Epinephrine HCl 16 mg/Dextrose 250 ml @ 1.875 mls/ hr Q24H IV 05/04/24 13:15 05/04/24 15:00 1.875 MLS/HR Hydrocortisone Sodium Succinate 100 mg Q8HR IV 05/04/24 22:00 05/04/24 21:06 100 MG Dextrose 50 ml PRN PRN IV 05/04/24 17:45 Hold objective Gen.: Patient lying in bed in medical ICU. intubated on mechanical ventilator. Head: Normocephalic, atraumatic. Eyes: PERRLA. Ears: Normal external anatomy. Throat: Endotracheal tube and orogastric tube in place. Neck: Supple, trachea midline. Chest: Transmitted breath sounds bilaterally. Decreased air entry bilaterally. No wheezing. Bibasilar crackles. Cardiovascular: Positive S1, positive S2. Regular rate and rhythm. Abdomen: Positive bowel sounds in all 4 quadrants. Soft, nontender, nondistended. : Celaya in place. Normal external genitalia. Rectal: Deferred. Skin: Warm, dry. Intact. Extremities: 2+ radial pulses bilaterally. No lower extremity edema. Neuro: Off sedation laboratory and microbiology Laboratory Tests 05/04/24 04:56 Test 05/04/24 04:56 Range/Units Serum Glucose 183 H 74-106 mg/dL Assessment/Plan Impression: Acute hypoxic respiratory failure On mechanical ventilator Shock Acute metabolic encephalopathy Aspiration pneumonia Events: Remains on vent support On AC mode; RR 18, VT 400, PEEP 5, FiO2 30% On multiple pressors for hemodynamic support Levophed 30 mcg/min, Justin-SYnephrine 180 mcg/min, vasopressin 0.03 units/min, epinephrine 10 mcg/min, dopamine 2 mcg/min Titrate to keep mean arterial pressure greater than 65 mmHg. Off Versed On Fentanyl drip for analgesia Stop Bumex drip due to hypotension. Remove NGT per family request for comfort. Continue wound care. Continue antibiotics Monitor hemoglobin Monitor platelets Tube feeds for nutritional support Monitor renal function Monitor electrolytes. Supplement as necessary. Patient is not a candidate for HD. Patient is not tolerating turns. Poor prognosis - poor chance of meaningful recovery. High likelihood of demise. Updated son at bedside. Labs and imaging reviewed. Rest of plan as noted below. Plan: s/p intubation on mechanical ventilator. CXR image and report reviewed. Devices in place. Airspace disease worsening in the left lower lobe. No pneumothorax. No pleural effusion. On AC mode; RR 18, VT 400, PEEP 5, FiO2 30% Titrate FIO2 to keep O2 saturation above 90%. VAP bundle. Daily ABG and CXR while intubated Off sedation Continue antibiotics. F/u cultures. On pressors for hemodynamic support Titrate to keep mean arterial pressure greater than 65 mmHg. Monitor renal function Monitor electrolytes. Supplement as necessary. Monitor ins and outs. Maintain euvolemia. GI prophylaxis. DVT prophylaxis. Prognosis: Poor given patient's multiple co-morbidities. Condition: Critical Rest of plan per hospitalist and other consultants. A total of 35 minutes of critical care time was spent reviewing the patient record, examining the patient, making a diagnostic and therapeutic plan, discussing this plan with the medical personnel, following up on diagnostic studies and following the patient for clinical stability excluding any and all procedures. At least 50% of this time was spent in direct, [id number] contact. Thank you Dr. Curiel for allowing me to participate in this patient's care. Further recommendations will depend on the patient's clinical course. Please do not hesitate to contact me if you have any questions or concerns. This medical document was created using an electronic medical record system with [employer] dictation system. Although these documentations are being carefully reviewed, there may still be some phonetic and typographical changes. The errors are purely typographical, due to imperfection on the software program, and do not reflect any compromise in the patient's medical care. Dietary Evaluation Review Recommendations by RD: Protein Supplementation Comments: 1) If NPO > 7 days, consider EN/TPN to meet at least 75% of estimated daily energy needs. 2) Initiate Lucas @ 1 pk bid when medically feasible. 3) Advance diet to 60g CCHO/cardiac when medically feasible, pending ADULT HEALTH CLINICAL NURSE SPECIALIST approval. 4) Continue to monitor nutrition-related labs. Expected Outcomes/Goals: 1) diet to advance 2) appetite and labs to improve 3) f/u in 3-5 days Plan discussed with: Son, Other (ENRIQUE Jensen) Critical Care Time(min): 35 CC Plasma Assessment Blood Product Administration S: 12:55 GUILLERMINA WILLSON MD May 04, 2024 22:33
[2024-05-05] VITALS: PULSE 54; RESP 19; O2SAT 26
[2024-05-05] MEDS ORDERED: LORazepam 2MG/ML-1ML VIAL IV PRN
[2024-05-05 00:02] VITALS: PULSE 55; RESP 18; TEMP 92.1
[2024-05-05] MEDS: MORPHINE SULFATE INJ 2 MG/ml SYRG IV PRN (00:13)
[2024-05-05 00:43] VITALS: BP 0/0; PULSE 0; RESP 0
--- NOTE | 2024-05-05 00:43 | DVHDS2 ---
Summary Date of Admission Apr 08, 2024 at 00:13 Date and Time of Expiration: May 05, 2024 12:34 Reason for Admission: septic shock Labs/Diagnostic Data: Laboratory Results Test 05/04/24 07:38 05/04/24 04:56 05/03/24 04:50 05/02/24 04:51 Blood Gas Specimen Type Arterial Blood Gas Sample Site Right brachial Blood Gas Patient Temperature 37.0 Arterial Blood Date Drawn [id number] Arterial Blood pH 7.338 (7.350-7.450) Arterial Blood Partial Pressure CO2 22.8 mmHg (32.0-45.0) Arterial Blood Partial Pressure O2 81.7 mmHg (83.0-108.0) Arterial Blood HCO3 12.0 mmol/L (21.0-28.0) Arterial Blood Oxygen Saturation 93.5 % (94.0-98.0) Arterial Blood Base Excess -12.2 mmol/L (-2.0-3.0) Arterial Blood Oxyhemoglobin 92.0 % (94.0-98.0) Arterial Blood Carboxyhemoglobin 0.9 % (0.5-1.5) Arterial Blood Methemoglobin 0.7 % (0.0-1.5) Jeromy Test N/a Blood Gas Total Hemoglobin 10.10 g/dL (12.0-16.0) Blood Gas Set Respiration Rate 18.0 Blood Gas Modality Vent - ac FiO2 % 30.0 Blood Gas Tidal Volume 400.0 Blood Gas PEEP or CPAP 5.0 White Blood Count 5.7 10^3/uL (4.4-10.8) Red Blood Count 2.59 10^6/uL (4.0-5.20) Hemoglobin 8.3 g/dL (12.2-16.2) Hematocrit 25.2 % (36.0-46.0) Mean Corpuscular Volume 97.2 fL (80.0-100.0) Mean Corpuscular Hemoglobin 31.9 pg (28.0-32.0) Mean Corpuscular Hemoglobin Concent 32.8 g/dL (32.0-36.0) Red Cell Distribution Width 22.6 % (11.8-14.3) Platelet Count 31 10^3/uL (140-450) Mean Platelet Volume 12.4 fL (6.9-10.8) Neutrophils (%) (Auto) % (37.0-80.0) Lymphocytes (%) (Auto) % (10.0-50.0) Monocytes (%) (Auto) % (0.0-12.0) Basophils (%) (Auto) % (0.0-2.0) Neutrophils # (Auto) 10 ^3/uL (1.6-8.6) Lymphocytes # (Auto) 10 ^3/uL (0.4-5.4) Monocytes # (Auto) 10 ^3/uL (0-1.3) Differential Total Cells Counted 100.0 (100) Neutrophils % (Manual) 84 (37.0-80.0) Band Neutrophils % (Manual) 6 Lymphocytes % (Manual) 6 (10.0-50.0) Monocytes % (Manual) 4 (0-12) Eosinophils % (Manual) 0 (0-7) Basophils % (Manual) 0 (0.0-2.0) Metamyelocytes % (manual) 0 Myelocytes % (Manual) 0 Promyelocytes % (Manual) 0 Blast Cells % (Manual) 0 Nucleated Red Blood Cells 26.0 % Reactive Lymphocytes 0 Platelet Estimate Adequate Sodium Level 138 mmol/L (136-145) Potassium Level 3.8 mmol/L (3.5-5.1) Chloride Level 104 mmol/L (98-107) Carbon Dioxide Level 16 mmol/L (20-31) Anion Gap 18 (5-15) Blood Urea Nitrogen 77 mg/dL (9-23) Creatinine 2.05 mg/dL (0.550-1.02) Glomerular Filtration Rate Calc 25 mL/min (>90) BUN/Creatinine Ratio 37.6 (10.0-20.0) Serum Glucose 183 mg/dL (74-106) Calcium Level 8.7 mg/dL (8.7-10.4) Magnesium Level 2.0 mg/dL (1.6-2.6) Eosinophils (%) (Auto) 0.5 % (0.0-7.0) Eosinophils # (Auto) 0 10 ^3/uL (0-0.8) Basophils # (Auto) 0 10 ^3/uL (0-0.2) Anisocytosis (manual) Slight Total Bilirubin 11.6 mg/dL (0.2-1.0) Aspartate Amino Transferase (AST) 96 U/L (13-40) Alanine Aminotransferase (ALT) 25 U/L (7-40) Alkaline Phosphatase 444 U/L (46-116) Total Protein 4.2 g/dL (5.7-8.2) Albumin 2.0 g/dL (3.2-4.8) Direct Bilirubin 8.9 mg/dL (<0.3) Test 05/01/24 14:10 05/01/24 07:58 04/30/24 08:08 04/30/24 04:50 Urine Creatinine 12.63 mg/dL (30.0-125.0) Urine Sodium 62 mmol/L (40-220) Large Platelets Few Random Vancomycin Level 15.3 ug/mL (5-10) Venous Blood pH 7.358 (7.320-7.430) Venous Blood pCO2 at Patient Temp 30.9 mmHg (38.0-54.0) Venous Blood pO2 at Patient Temp 38.1 mmHg (23.0-48.0) Venous Blood HCO3 17.0 mmol/L (22.0-29.0) Venous Blood Base Excess -7.1 mmol/L (-2.0-3.0) Urine Color Yellow (Yellow) Urine Clarity Turbid (Clear) Urine pH 5.0 (5.0-9.0) Urine Specific Phelps 1.011 (1.001-1.035) Urine Protein 1+ (Negative) Urine Ketones Negative (Negative) Urine Blood 1+ /uL (Negative) Urine Nitrite Negative (Negative) Urine Bilirubin 1+ (Negative) Urine Urobilinogen 3 mg/dL (Negative) Urine Leukocyte Esterase 3+ /uL (Negative) Urine RBC 11 /hpf (0 - 4) Urine WBC Clumps Present /hpf (None Seen) Urine Microscopic WBC 103 /HPF (0-5) Urine Squamous Epithelial Cells Few /hpf (<5) Urine Calcium Oxalate Crystals Few (None Seen) Urine Bacteria Few /hpf (None Seen) Urine Hyaline Casts Few /lpf (0 - 2) Urine Mucus Few (None Seen) Urine Yeast (Budding) Moderate /hpf (None Seen) Urine Glucose Normal mg/dL (Normal) Test 04/28/24 04:54 04/26/24 07:21 04/23/24 11:33 04/23/24 08:07 Target Cells Few Blood Gas Spontaneous Rate 20 Blood Gas Inspiratory Pressure 19.0 Bl Gas Inspiratory/Expiratory Ratio 1:3.2 Specimen Drawn By kanchan rt POC Glucose 198 mg/dl (70-106) Hypochromasia (manual) Slight Prothrombin Time 13.6 sec (9.3-11.8) Prothrombin Time INR 1.32 (0.9-1.15) Activated Partial Thromboplast Time 32.2 SEC (24.5-34.5) Test 04/22/24 07:31 04/22/24 04:58 04/21/24 13:50 04/21/24 05:29 Blood Gas Critical Value Read Back Yes Blood Gas Notified Whom Girdhar. lurdes cook Blood Gas Notified Time [id number] Blood Gas Notified By Childhood Development Teacher dania lomas Ammonia 30 umol/L (11-32) Lactic Acid Level 13.3 mmol/L (0.4-2.0) [place] Cells Few Phosphorus Level 4.6 mg/dL (2.4-5.1) Lipase 102 U/L (12-53) Test 04/20/24 04:54 04/17/24 23:15 04/17/24 15:27 04/17/24 04:50 Microcytosis Slight Urine WBC 7 /hpf (0 - 5) Fibrinogen 136 mg/dL (177-375) Gamma Glutamyl Transpeptidase 80 U/L (<38) Vitamin B1 Level 132.6 nmol/L (66.5-200.0) Poikilocytosis (manual) Slight Stomatocytes Few Haptoglobin <10 mg/dL (42-346) Test 04/17/24 01:47 04/16/24 09:46 04/16/24 04:40 04/13/24 12:38 Vancomycin Level Trough 22.8 ug/mL (5-10) Ovalocytes Few Reticulocyte Count (auto) 0.75 % (0.5-1.5) Lactate Dehydrogenase 417 U/L (120-246) Blood Gas Liter Flow 4.00 Test 04/10/24 11:10 04/10/24 10:21 04/10/24 02:15 04/09/24 08:50 Uric Acid 9.5 mg/dL (3.1-7.8) Beta-Hydroxybutyric Acid 2.927 mmol/L (< 0.4) Urine Osmolality 345 mOsm/kg Urine Protein/Creatinine Ratio 2.06 Urine Potassium 41 mmol/L (12-62) Urine Total Protein 100.4 mg/dL (1-14) Magnesium Lvl (Mg Sulfate Therapy) 1.87 mg/dL (4.0-7.1) Urine Opiates Screen Neg (NEGATIVE) Urine Fentanyl Screen Neg (NEGATIVE) Urine Barbiturates Screen Neg (NEGATIVE) Urine Phencyclidine Screen Neg (NEGATIVE) Urine Amphetamines Screen Neg (NEGATIVE) Urine Benzodiazepines Screen Neg (NEGATIVE) Urine Cocaine Screen Neg (NEGATIVE) Urine Cannabinoids Screen Neg (NEGATIVE) Test 04/08/24 08:53 04/08/24 06:20 04/08/24 00:40 04/07/24 22:08 Folic Acid 5.97 ng/mL (>5.38) Influenza Type A Antigen Negative (Negative) Influenza Type B Antigen Negative (Negative) SARS-CoV-2 Antigen (Rapid) Negative (NEGATIVE) Hemoglobin A1c < 3.8 % A1C (<5.7) Vitamin B12 Level 8780 pg/mL (211-911) Thyroid Stimulating Hormone (TSH) 2.23 uIU/mL (0.55-4.78) Salicylates Level < 3.0 mg/dL (-30) Hepatitis A IgM Antibody Negative Hepatitis B Surface Antigen Negative (Negative) Hepatitis B Core IgM Antibody Negative (Negative) Hepatitis C Antibody Negative (Negative) Troponin I High Sensitivity 18 ng/L (</=34) Test 04/07/24 18:46 B-Type Natriuretic Peptide 183.49 pg/mL (0-100) Other Laboratory Tests 05/04/24 04:56 Brief Hx & Hospital Course: Patient was a 73 years old female with past medical history of coronary artery disease, s/p CABG, CVA with right-sided weakness, DVT, hypertension, diabetes mellitus type 2, hyperlipidemia, history of pressure ulcer, osteoporosis brought by the EMS due to worsening mental status for last 7 days. History was mostly gathered from patient's family members son Janusz. As per son patient usually responds to conversation but last 6 7 days, lianet been experiencing poor appetite, altered mental status, agitated, , not drinking and eating well. Patient also had fever up to 102.5F at home. Patient also had a bilateral leg swelling who is usually goes away but lately was not getting any better. Patient also had a history of stroke and has been bed-bound for the last 3 years, with a urinary and fecal incontinence. Patient's son also reported lately patient had been having difficulty in swallowing food, making some gurgling noise. Patient's lab workup revealed anemia with hemoglobin 8.6, thrombocytosis with platelets 520, serum creatinine 1.13, elevated bilirubin 2.1, elevated AST 53, elevated ALT 119, hypomagnesemia 1.1, BNP was mildly elevated 183, urinalysis revealed nitrite 2+, leukocyte esterase 3+, WBC 564, RBC 16, bacteria . Patient tested negative for COVID-19 and influenza type A and B. CXR revealed no acute disease, CT- head revealed-Patchy periventricular and subcortical white matter hypoattenuation is nonspecific but may be related to small vessel ischemic disease. Lower extremity arterial Doppler revealed- Peripheral vascular disease in the bilateral lower extremity as evidenced by monophasic waveforms. Evaluation is limited as bilateral posterior tibial arteries and dorsalis pedis arteries are not visualized due to external bandages. X-ray left elbow Revealed-There is no evidence of acute fracture or dislocation. Diffuse subcutaneous soft-tissue edema and swelling. Small anterior joint effusion. X- ray left hand- There is no evidence of acute fracture or dislocation. Diffuse osteopenia. Subcentimeter ossific density in the inferior soft tissues of the distal forearm may represent heterotopic ossification or change related to prior trauma or phlebolith. CT abdomen and pelvis without contrast revealed- Mild gaseous small bowel distention in the abdomen without mural thickening or transitional point likely reflect ileus. No evidence of obstruction. Severe atherosclerotic disease. Diffuse fatty muscle atrophy. Subcutaneous edema in the bilateral upper thighs. The urinary bladder is decompressed by Lozada catheter. Moderate-size midline lower pelvic wall fat containing hernia with suggestion of prior repair. Hospital course: Patient was initially started on cefepime 1 g IV q.12 hours, Doxycycline 100 mg IV hours, Lovenox 50 mg subcutaneously q.12 hours. Nephrology, pulmonology and Cardiology were also taken on board. On April 13, 2024, patient became hypoxic, hypotensive, was started on pressors, repeat xray with multifocal lung disease, maintenance fluid discontinued. POCUS was done, which showed decreased contractility, IVC >2cm with >50% excursion, JVD clavicular level, blines on right side, trace pleural effusion. oxygenation not improving with oxymizer, had discussion with family regarding goals of care, family wanted full code on 04/13/2024. Patient was intubated, sedated and placed on mechanical ventilator, 2nd pressor vasopressin was added in addition to Levophed, started on stress dose steroid, escalated abx to meropenem and vancomycin, collected sputum culture and A line was placed. Patient required multiple blood transfusion during the course of hospitalization along with transfusion of 2 FFP these. Patient underwent cholecystectomy on 04/23/2024, interventional Radiology were also consulted for possible cholecystostomy which the patient underwent on 04/24/2024. Patient was also started on Bumex, bicarb and albumin drip by Nephrology. On 05/04/2024, around 11:30 p.m. family requested to change the code status to DNR and also requested terminal wean. Patient was terminally extubated per family request at 12:15 a.m. on 05/05/2024, RN and family were at bedside. Patient was orally suctioned prior to removing the ETT tube and vent was turned off. Shortly after, underwater photographer showed asystole. Time of 12:34 a.m.. Detailed bedside examination revealed: -The patient was unresponsive to verbal or painful stimuli. -Spontaneous Heart and lung sounds were absent. -No spontaneous cardiac or respiratory activity noted over 5 minutes. -No corneal pupillary reflex present while checked twice. -Pupils were fixed and dilated over the examination period. Code timeout performed. The patient was pronounced clinically at 12:34am of date 05/05/24 by Phill Merritt MD, resident. Discussed with Dr. Bejarano Patient's family and patient's nurse were updated by the healthcare team. Appropriate and empathic condolences were provided to the patient's dear ones. The son was at bedside, the family is updated empathetically with support from the entire team. Final Diagnosis/Problems List septic shock acute metabolic encephalopathy 2/2 sepsis on dementia acute hypoxic respiratory failure 2/2 aspiration PNA extravascular fluid overload likely oncotic acute on chronic heart failure with reduced ejection fraction 40% CAD s/p CABG dementia MELVINA likely ATN on Chronic kidney disease. infected sacral ulcer pancytopenia 2/2 sepsis DIC B1 deficiency, wet beriberi? hypoalbuminuria protein calorie malnutrition Dementia History of DVT Acalculous cholecystitis Transaminitis Questionable atrial fibrillation (takes Eliquis at home). Hypertension. Hyperlipidemia. CVA with right-sided deficit. Type 2 diabetes mellitus. Anemia. Osteoporosis. Bed-bound. Discharge Disposition: at Hospital Date of Service: May 05, 2024 Billing Provider: CARMEN MARISCAL MD Common Visit Codes: 79074-QVX/[id number] DISCH DAY >30min [place] [facility] RESIDENT May 05, 2024 00:43 CARMEN MARISCAL MD May 06, 2024 09:53
== END 2024-05-05 00:34 | DRG 870 ==
LOC: ER 17:10 → EDBD 17:10 → TELE 04-08 00:13 → EDUNIT# 04-08 00:13 → TELE 04-08 07:06 → ICU CENTRL 04-14 01:50
PROVIDERS: ADMIT Internal Medicine; ATTEND Internal Medicine
PROC: 30233N1 Transfusion of Nonautologous Red Blood Cells into Peripheral Vein, Percutaneous Approach (ICD-10-PCS; 2024-04-10)
PROC: 5A1955Z Respiratory Ventilation, Greater than 96 Consecutive Hours (ICD-10-PCS; principal; 2024-04-13)
PROC: 0BH17EZ Insertion of Endotracheal Airway into Trachea, Via Natural or Artificial Opening (ICD-10-PCS; 2024-04-13)
PROC: 03HY32Z Insertion of Monitoring Device into Upper Artery, Percutaneous Approach (ICD-10-PCS; 2024-04-13)
PROC: 30233K1 Transfusion of Nonautologous Frozen Plasma into Peripheral Vein, Percutaneous Approach (ICD-10-PCS; 2024-04-17)
PROC: 30233R1 Transfusion of Nonautologous Platelets into Peripheral Vein, Percutaneous Approach (ICD-10-PCS; 2024-04-18)
PROC: 0F9430Z Drainage of Gallbladder with Drainage Device, Percutaneous Approach (ICD-10-PCS; 2024-04-23)
PROC: 02H633Z Insertion of Infusion Device into Right Atrium, Percutaneous Approach (ICD-10-PCS; 2024-05-01)
PROC: B548ZZA Ultrasonography of Superior Vena Cava, Guidance (ICD-10-PCS; 2024-05-01)
DX: A41.9 Sepsis, unspecified organism (principal); D65 Disseminated intravascular coagulation [defibrination syndrome]; G93.41 Metabolic encephalopathy; I50.23 Acute on chronic systolic (congestive) heart failure; J69.0 Pneumonitis due to inhalation of food and vomit; J96.01 Acute respiratory failure with hypoxia; N17.0 Acute kidney failure with tubular necrosis; R65.21 Severe sepsis with septic shock; J18.9 Pneumonia, unspecified organism; N30.00 Acute cystitis without hematuria; D61.818 Other pancytopenia; E46 Unspecified protein-calorie malnutrition; E87.4 Mixed disorder of acid-base balance; I13.0 Hypertensive heart and chronic kidney disease with heart failure and stage 1 through stage 4 chronic kidney disease, or unspecified chronic kidney disease; I82.413 Acute embolism and thrombosis of femoral vein, bilateral; R17 Unspecified jaundice; I69.351 Hemiplegia and hemiparesis following cerebral infarction affecting right dominant side; K56.7 Ileus, unspecified; I82.611 Acute embolism and thrombosis of superficial veins of right upper extremity; Z66 Do not resuscitate; Z20.822 Contact with and (suspected) exposure to COVID-19; E11.22 Type 2 diabetes mellitus with diabetic chronic kidney disease; E78.5 Hyperlipidemia, unspecified; E87.6 Hypokalemia; E88.09 Other disorders of plasma-protein metabolism, not elsewhere classified; F02.80 Dementia in other diseases classified elsewhere, unspecified severity, without behavioral disturbance, psychotic disturbance, mood disturbance, and anxiety; G30.9 Alzheimer's disease, unspecified; I25.10 Atherosclerotic heart disease of native coronary artery without angina pectoris; I48.91 Unspecified atrial fibrillation; I49.3 Ventricular premature depolarization; L89.159 Pressure ulcer of sacral region, unspecified stage; M81.0 Age-related osteoporosis without current pathological fracture; N18.9 Chronic kidney disease, unspecified; E83.42 Hypomagnesemia; K81.9 Cholecystitis, unspecified; K82.8 Other specified diseases of gallbladder; K83.8 Other specified diseases of biliary tract; E11.65 Type 2 diabetes mellitus with hyperglycemia; E03.9 Hypothyroidism, unspecified; R74.01 Elevation of levels of liver transaminase levels; D75.839 Thrombocytosis, unspecified; E11.51 Type 2 diabetes mellitus with diabetic peripheral angiopathy without gangrene; I87.8 Other specified disorders of veins; R13.10 Dysphagia, unspecified; Z74.01 Bed confinement status; Z95.1 Presence of aortocoronary bypass graft; Z86.718 Personal history of other venous thrombosis and embolism; Z68.29 Body mass index [BMI] 29.0-29.9, adult; Z79.899 Other long term (current) drug therapy; Z79.4 Long term (current) use of insulin
CPT/HCPCS: 36415; 36556; 36600; 36620; 47532; 70450; 71045; 73080; 73120; 74176; 76705; 76942; 80048; 80053; 80074; 80076; 80202; 80307; 80329; 81001; 82010; 82140; 82248; 82565; 82570; 82607; 82746; 82805; 82962; 82977; 83010; 83036; 83605; 83615; 83690; 83735; 83880; 83935; 84100; 84132; 84133; 84156; 84300; 84425; 84443; 84484; 84550; 85007; 85014; 85018; 85025; 85027; 85045; 85384; 85610; 85730; 86850; 86880; 86900; 86901; 86920; 87040; 87070; 87077; 87081; 87086; 87088; 87186; 87205; 87426; 87804; 92950; 93005; 93306; 93925; 93970; 93971; 94002; 94003; 99152; G0378; J0171; J1815; J2003; J2185; J2248; J2405; J2470; J3430; J3480; J3490; J7060; P9047; Q9967